=== PATIENT | female | born 1955 | race American Indian/Alaskan Native ===

== ENCOUNTER 2016-06-30 09:17 | Emergency (ER) | payer OTHER ==
[2016-06-30 09:17] VITALS: BMI 38.4
[2016-06-30 09:44] VITALS: RESP 18; TEMP 97.9; O2SAT 96
--- NOTE | 2016-06-30 10:32 | ED PDOC ---
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 Patient states that she is compliant with taking her Dilantin. 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 Denies tongue biting, dizziness, chest pain, shortness of breath, abdominal pain, N/V, or any other complaints at this time. D [facility] Past Medical History - Provider Review Nursing Documentation Reviewed: Yes - Infectious Disease Hx of Infectious Diseases: None - Tetanus Immunization Tetanus Immunization: Up to Date - Past Medical History Past Medical History: Non-Contributing - Cardiac Hx Cardiac Disorders: Yes Hx Congestive Heart Failure: Yes Hx Hypertension: Yes Hx Peripheral Edema: Yes - Pulmonary Hx Asthma: Yes Hx Bronchitis: Yes Hx Pulmonary Embolism: Yes - Neurological Hx Neurological Disorder: Yes Hx Migraine: Yes Hx Seizures: Yes - HEENT Hx HEENT Disorder: No - Renal Hx Renal Disorder: No - Hematological/Oncological Hx Blood Disorders: Yes Hx Anemia: Yes - Integumentary Hx Dermatological Disorder: No - Musculoskeletal/Rheumatological Hx Musculoskeletal Disorders: Yes Hx Arthritis: Yes - Gastrointestinal Hx Gastrointestinal Disorders: Yes Hx Crohn's Disease: Yes Hx Gall Bladder Disease: Yes Hx Gastritis: Yes Hx Gastrointestinal Ulcer: Yes - Genitourinary/Gynecological Hx Genitourinary Disorders: No Hx Sexually Transmitted Diseases: No - Psychiatric Hx Psychophysiologic Disorder: Yes Hx Anxiety: Yes Hx Depression: Yes Hx Substance Use: No - Past Surgical History Past Surgical History: Non-Contributing - Surgical History Hx Cholecystectomy: Yes - Anesthesia Hx Anesthesia: Yes Hx Anesthesia Reactions: No Hx Malignant Hyperthermia: No - Suicidal Assessment Feels Threatened In Home Enviroment: No Family/Social History - Physician Review Nursing Documentation Reviewed: Yes Family/Social History: Unknown Family HX Smoking Status: Former Smoker Hx Alcohol Use: No Hx Substance Use: No Substance used: PAIN MEDICATION Hx Substance Use Treatment: No Allergies/Home Meds Allergies/Adverse Reactions: Allergies benzethonium chloride Allergy (Intermediate, Verified 06/30/16 09:24) URTICARIA benzocaine Allergy (Unknown, Verified 06/30/16 09:24) ITCHING broccoli Allergy (Unknown, Verified 06/30/16 09:24) ITCHING ketorolac tromethamine [From Toradol] Allergy (Unknown, Verified 06/30/16 09:24) ANAPHYLAXIS lidocaine Allergy (Unknown, Verified 06/30/16 09:24) ITCHING nitroglycerin Allergy (Unknown, Verified 06/30/16 09:24) URTICARIA pineapple Allergy (Unknown, Verified 06/30/16 09:24) ITCHING trazodone Allergy (Unknown, Verified 06/30/16 09:24) "heart flutters", swelling haloperidol [From Haldol] Allergy (Verified 06/30/16 09:24) VOMITING haloperidol lactate [From Haldol] Allergy (Verified 06/30/16 09:24) VOMITING oxycodone Allergy (Verified 06/30/16 09:24) SHORTNESS OF BREATH Unknown reaction, patient refused to answer. ziprasidone HCl [From Geodon] Allergy (Verified 06/30/16 09:24) SHORTNESS OF BREATH palpitations ziprasidone mesylate [From Geodon] Allergy (Verified 06/30/16 09:24) SHORTNESS OF BREATH aspirin Adverse Reaction (Unknown, Verified 06/30/16 09:24) "heart flutters", swelling steroids Allergy (Unknown, Uncoded 06/30/16 09:24) "heart flutters", swelling Lanacane Allergy (Uncoded 06/30/16 09:24) SHORTNESS OF BREATH Unknown reaction, patient refused to answer. Steroids Allergy (Uncoded 06/30/16 09:24) SHORTNESS OF BREATH Unknown reaction, patient refused to answer. Home Medications: Home Meds Medication Instructions Recorded Confirmed Ferrous Sulfate [Feosol] 325 mg PO DAILY 08/22/15 06/30/16 Omeprazole [Prilosec] 40 mg PO DAILY 09/12/15 06/30/16 Albuterol HFA [Ventolin HFA 90 2 puff IH TID 03/30/16 06/30/16 mcg/actuation (8 g)] DiphenhydrAMINE [Benadryl] 25 mg PO PRN PRN 03/30/16 06/30/16 Enoxaparin [Lovenox] 120 mg SQ DAILY 03/30/16 06/30/16 LORazepam [Ativan] 2 mg PO BID 03/30/16 06/30/16 Review of Systems - Review of Systems Constitutional: Normal. absent: Fatigue, Weight Change, Fevers Respiratory: Normal. absent: SOB, Cough Cardiovascular: Normal. absent: Chest Pain, Palpitations Gastrointestinal: Normal. absent: Abdominal Pain, Stool Changes Musculoskeletal: Normal, Back Pain. absent: Arthralgias Skin: Normal. absent: Rash, Pruritis Neurological: Normal, Headache. absent: Dizziness, Focal Weakness Physical Exam - Physical Exam Narrative Physical Exam (Text): 06/30/16 10:33 GENERAL APPEARANCE: Patient is awake, alert, oriented x 3, in no acute distress. SKIN: Warm, dry; (-) cyanosis; (-) rash. HEAD: Normocephalic, atraumatic, (-) scalp swelling or tenderness. EYES: (-) conjunctival pallor, (-) scleral icterus. ENMT: (-) sinus tenderness; mucous membranes moist. NECK: (-) tenderness, (-) stiffness, (-) meningismus, (-) lymphadenopathy. CHEST AND RESPIRATORY: (-) rales, (-) rhonchi, (-) wheezes; breath sounds equal bilaterally. HEART AND CARDIOVASCULAR: (-) irregularity; (-) murmur, (-) gallop. ABDOMEN AND GI: Soft; (-) tenderness. BACK: (-) tenderness, (-) ecchymosis. EXTREMITIES: (-) deformity. NEURO AND PSYCH: Mental status as above. financial sales advisor: Pupils equal and reactive; EOMI ; (-) facial asymmetry; tongue and uvula midline. Strength and DTRs symmetric. Babinski normal bilaterally. Vital Signs Temp Pulse Resp BP Pulse Ox 06/30/16 11:07 68 18 135/71 96 06/30/16 09:41 97.9 F 78 18 138/77 96 Finger Stick Blood Glucose: 101 Medical Decision Making ED Course and Treatment: 06/30/16 10:34 60 yo F presents to the ER for seizure episode, is c/o mild headache is on lovenox for a chronic DVT to the L leg. Plan: -- Labs -- Dilantin levels -- EKG -- Tylenol -- Reassess and disposition -- CT head CBC/CMP/Coags not drawn as the patient is difficult to access an IV, will attempt to draw dilatin level for now. EKG: NSR at 79 bpm, (-) acute ST changes, as read by PA. CT head: FINDINGS: HEMORRHAGE: No intracranial hemorrhage. BRAIN: No mass effect or edema. The padilla-white matter differentiation appears intact. Please note that MRI with diffusion imaging is more sensitive in the detection of acute ischemic event. VENTRICLES: No hydrocephalus. CALVARIUM: Unremarkable. PARANASAL SINUSES: Unremarkable as visualized. No significant inflammatory changes. MASTOID AIR CELLS: Unremarkable as visualized. No inflammatory changes. OTHER FINDINGS: None. IMPRESSION: No acute intracranial pathology identified. 06/30/16 12:04 On reevaluation, patient remains awake, alert, oriented 3, in no acute distress. Patient is ambulating in the emergency room with a normal and steady gait. Patient has no additional complaints at this time, reports improvement of her headache. Repeat neuro exam shows no acute focal findings. Dilantin level is [address] head shows no acute intracranial findings. Based on history, exam and diagnostic results plan will be for outpatient follow -up with PMD. Patient instructed to continue taking her Dilantin as prescribed by her neurologist, encouraged to maintain compliance. Patient states she fully agrees with and understands discharge instructions. States that she agrees with the plan and disposition. Verbalized and repeated discharge instructions and plan. I have given the patient opportunity to ask any additional questions. Follow up with primary care physician and neurologist in 1-2 days without fail. Return to the emergency room at any time for any new or worsening symptoms. - Lab Interpretations Lab Results: Lab Results 06/30/16 11:30: Phenytoin 20 - RAD Interpretation Radiology Orders: 06/30/16 09:58 HEAD W/O CONTRAST [CT] Stat - Medication Orders Current Medication Orders: Discontinued Medications Acetaminophen (Tylenol 325mg Tab) 975 mg PO STAT STA Stop: 06/30/16 10:00 Last Admin: 06/30/16 10:09 Dose: 975 MG MAR Pain/Vitals Document 06/30/16 10:09 MARANDA (Rec: 06/30/16 10:09 MARANDA [id number]) Pain Reassessment Is This A Pain ReAssessment? Yes Presence of Pain Presence of Pain Yes Pain Scale Used Pain Scale Used Numeric Location Pain Location Body Inclusion Teacher Intensity 10 Scale Used Numeric - PA / QUALITY ASSURANCE COORDINATOR / Resident Statement MD/DO has reviewed & agrees with the documentation as recorded. Disposition/Present on Arrival - Present on Arrival Any Indicators Present on Arrival: No History of DVT/PE: No History of Uncontrolled Diabetes: No Urinary Catheter: No History of Decub. Ulcer: No History Surgical Site Infection Following: None - Disposition Have Diagnosis and Disposition been Completed?: Yes Diagnosis: Seizure, Headache Disposition: HOME/ ROUTINE Disposition Time: 12:08 Patient Plan: Discharge Patient Problems: Current Active Problems Problem Status Diagnosed DVT (deep venous thrombosis) Acute EKG abnormality Acute History of deep vein thrombosis Acute History of pulmonary embolus (PE) Acute Prophylactic measure Acute Condition: GOOD Discharge Instructions (ExitCare): Recurrent Seizures in Adults (ED) Print Language: POLISH Additional Instructions: Thank you for letting us take care of you today. You were treated for seizure, headache. The emergency medical care you received today was directed at your acute symptoms. Continue taking your Dilantin. Return to the Emergency Department if your symptoms worsen, do not improve, or if you have any other problems. Please contact your doctor and neurologist in 2 days for re-evaluation and follow up. Bring any paperwork you were given at discharge with you along with any medications you are taking to your follow up visit. Our treatment cannot replace ongoing medical care by a primary care provider (PCP) outside of the emergency department. Thank you for allowing the [facility] team to be part of your care today.
--- NOTE | 2016-06-30 10:47 | CT ---
PROCEDURE: CT HEAD WITHOUT CONTRAST. HISTORY: s/p seizure, headache, on lovenox COMPARISON: Noncontrast head CT performed 10/31/15 TECHNIQUE: Axial computed tomography images were obtained through the head/brain without intravenous contrast. Radiation dose: Total exam DLP = 725.84 mGy-cm. FINDINGS: HEMORRHAGE: No intracranial hemorrhage. BRAIN: No mass effect or edema. The padilla-white matter differentiation appears intact. Please note that MRI with diffusion imaging is more sensitive in the detection of acute ischemic event. VENTRICLES: No hydrocephalus. CALVARIUM: Unremarkable. PARANASAL SINUSES: Unremarkable as visualized. No significant inflammatory changes. MASTOID AIR CELLS: Unremarkable as visualized. No inflammatory changes. OTHER FINDINGS: None. IMPRESSION: No acute intracranial pathology identified.
[2016-06-30 11:08] VITALS: BP 135/71; PULSE 68
--- NOTE | 2016-07-01 09:41 | CARD ---
APPROVED REPORT EKG Measurement Heart [id number] <Conclusion> Normal sinus rhythm NSSTW changes No change
== END 2016-06-30 12:15 | disposition home or self-care (01) ==
LOC: ED 09:17
DX: R56.9 Unspecified convulsions (principal); R51 Headache

== ENCOUNTER 2016-07-25 23:48 | Emergency (ER) | payer OTHER ==
[2016-07-25 23:55] VITALS: BMI 40.2
--- NOTE | 2016-07-26 00:30 | ED PDOC ---
Arrival/HPI - General Chief Complaint: Anxiety Time Seen by Provider: 07/26/16 00:17 Historian: Patient - History of Present Illness Narrative History of Present Illness (Text): 07/26/16 00:05 This 60 yo female who is well known in this ED came c/o chronic chest pain, and anxiety x 1 day. Patient stated she feels anxious and she stated she takes Ativan for this. Patient denies sob, cough, fever, recent travel, erythema, abscess, pleuritic chest pain, trauma, leg swelling, sick contact, or abnormal gait. Time/Duration: Prior to Arrival Context: Home Past Medical History - Provider Review Nursing Documentation Reviewed: Yes - Infectious Disease Hx of Infectious Diseases: None - Tetanus Immunization Tetanus Immunization: Up to Date - Past Medical History Past Medical History: Non-Contributing - Cardiac Hx Cardiac Disorders: Yes Hx Congestive Heart Failure: Yes Hx Hypertension: Yes Hx Peripheral Edema: Yes - Pulmonary Hx Asthma: Yes Hx Bronchitis: Yes Hx Pulmonary Embolism: Yes - Neurological Hx Neurological Disorder: Yes Hx Migraine: Yes Hx Seizures: Yes - HEENT Hx HEENT Disorder: No - Renal Hx Renal Disorder: No - Hematological/Oncological Hx Blood Disorders: Yes Hx Anemia: Yes - Integumentary Hx Dermatological Disorder: No - Musculoskeletal/Rheumatological Hx Musculoskeletal Disorders: Yes Hx Arthritis: Yes - Gastrointestinal Hx Gastrointestinal Disorders: Yes Hx Crohn's Disease: Yes Hx Gall Bladder Disease: Yes Hx Gastritis: Yes Hx Gastrointestinal Ulcer: Yes - Genitourinary/Gynecological Hx Genitourinary Disorders: No Hx Sexually Transmitted Diseases: No - Psychiatric Hx Psychophysiologic Disorder: Yes Hx Anxiety: Yes Hx Depression: Yes Hx Substance Use: No - Past Surgical History Past Surgical History: Non-Contributing - Surgical History Hx Cholecystectomy: Yes - Anesthesia Hx Anesthesia: Yes Hx Anesthesia Reactions: No Hx Malignant Hyperthermia: No - Suicidal Assessment Feels Threatened In Home Enviroment: No Family/Social History - Physician Review Nursing Documentation Reviewed: Yes Family/Social History: No Known Family HX Smoking Status: Former Smoker Hx Alcohol Use: No Hx Substance Use: No Substance used: PAIN MEDICATION Hx Substance Use Treatment: No Allergies/Home Meds Allergies/Adverse Reactions: Allergies benzethonium chloride Allergy (Intermediate, Verified 06/30/16 09:24) URTICARIA benzocaine Allergy (Unknown, Verified 06/30/16 09:24) ITCHING broccoli Allergy (Unknown, Verified 06/30/16 09:24) ITCHING ketorolac tromethamine [From Toradol] Allergy (Unknown, Verified 06/30/16 09:24) ANAPHYLAXIS lidocaine Allergy (Unknown, Verified 06/30/16 09:24) ITCHING nitroglycerin Allergy (Unknown, Verified 06/30/16 09:24) URTICARIA pineapple Allergy (Unknown, Verified 06/30/16 09:24) ITCHING trazodone Allergy (Unknown, Verified 06/30/16 09:24) "heart flutters", swelling haloperidol [From Haldol] Allergy (Verified 06/30/16 09:24) VOMITING haloperidol lactate [From Haldol] Allergy (Verified 06/30/16 09:24) VOMITING oxycodone Allergy (Verified 06/30/16 09:24) SHORTNESS OF BREATH Unknown reaction, patient refused to answer. ziprasidone HCl [From Geodon] Allergy (Verified 06/30/16 09:24) SHORTNESS OF BREATH palpitations ziprasidone mesylate [From Geodon] Allergy (Verified 06/30/16 09:24) SHORTNESS OF BREATH aspirin Adverse Reaction (Unknown, Verified 06/30/16 09:24) "heart flutters", swelling steroids Allergy (Unknown, Uncoded 06/30/16 09:24) "heart flutters", swelling Lanacane Allergy (Uncoded 06/30/16 09:24) SHORTNESS OF BREATH Unknown reaction, patient refused to answer. Steroids Allergy (Uncoded 06/30/16 09:24) SHORTNESS OF BREATH Unknown reaction, patient refused to answer. Home Medications: Home Meds Medication Instructions Recorded Confirmed Ferrous Sulfate [Feosol] 325 mg PO DAILY 08/22/15 06/30/16 Omeprazole [Prilosec] 40 mg PO DAILY 09/12/15 06/30/16 Albuterol HFA [Ventolin HFA 90 2 puff IH TID 03/30/16 06/30/16 mcg/actuation (8 g)] DiphenhydrAMINE [Benadryl] 25 mg PO PRN PRN 03/30/16 06/30/16 Enoxaparin [Lovenox] 120 mg SQ DAILY 03/30/16 06/30/16 LORazepam [Ativan] 2 mg PO BID 03/30/16 06/30/16 Review of Systems - Review of Systems Constitutional: Normal. absent: Fatigue, Weight Change, Fevers Eyes: Normal ENT: Normal Respiratory: Normal. absent: SOB, Cough Cardiovascular: Chest Pain. absent: Palpitations, Edema, Calf Pain, PATTERSON, Orthopnea, Syncope Gastrointestinal: Normal. absent: Abdominal Pain, Nausea, Vomiting Genitourinary Female: Normal. absent: Dysuria, Frequency, Hematuria Musculoskeletal: Normal. absent: Arthralgias, Back Pain Skin: Normal. absent: Rash, Pruritis, Skin Lesions, Laceration Neurological: Normal. absent: Headache, Dizziness, Focal Weakness Endocrine: Normal Hemo/Lymphatic: Normal Psychiatric: Anxiety, Other (Denies HI). absent: Depression, Suicidal Ideation Physical Exam Vital Signs Temp Pulse Resp BP Pulse Ox 07/26/16 01:26 98 F 86 20 152/88 H 98 07/26/16 00:00 97.7 F 102 H 18 162/94 H 95 Temperature: Afebrile Blood Pressure: Normal Pulse: Regular Respiratory Rate: Normal Appearance: Positive for: Well-Appearing, Non-Toxic, Comfortable Pain Distress: None Mental Status: Positive for: Alert and Oriented X 3 - Systems Exam Head: Present: Atraumatic, Normocephalic Pupils: Present: PERRL Extroacular Muscles: Present: EOMI Conjunctiva: Present: Normal Mouth: Present: Moist Mucous Membranes Pharnyx: Present: Normal. No: ERYTHEMA, EXUDATE, TONSILS ENLARGED Nose (External): Present: Atraumatic Nose (Internal): Present: Normal Inspection Neck: Present: Normal Range of Motion, Trachea Midline, Other ((+) mild irritation right sided neck. no cellulitis or abscess. No tenderness on palpation. Blanches on palpation). No: Meningeal Signs, MIDLINE TENDERNESS, Paraspinal Tenderness, Lymphadenopathy Respiratory/Chest: Present: Clear to Auscultation, Good Air Exchange. No: Respiratory Distress, Accessory Muscle Use, Wheezes, Decreased Breath Sounds, Rales, Retracting, Rhonchi, Tachypneic Cardiovascular: Present: Regular Rate and Rhythm, Normal S1, S2. No: Murmurs Abdomen: Present: Normal Bowel Sounds. No: Tenderness, Distention, Peritoneal Signs Back: Present: Normal Inspection. No: CVA Tenderness Upper Extremity: Present: Normal Inspection, Normal ROM, NORMAL PULSES, Neurovascularly Intact, Capillary Refill < 2s. No: Cyanosis, Edema Lower Extremity: Present: Normal Inspection, Normal ROM, Neurovascularly Intact , Capillary Refill < 2 s. No: Edema Neurological: Present: GCS=15, CN II-XII Intact, Speech Normal, Motor Func Grossly Intact, Normal Sensory Function, Normal Cerebellar Funct, Gait Normal, Memory Normal Skin: Present: Warm, Dry, Normal Color. No: Rashes Psychiatric: Present: Alert, Oriented x 3, Normal Insight, Normal Concentration , Anxious. No: Depressed Mood, Suicidal Ideation, Homicidal Ideation, Delusional, Hallucinations, Intoxicated, Lethargic Medical Decision Making ED Course and Treatment: 07/26/16 01:32 Re-evaluation. Patient feels better. Discussed results and plan with patient who expresses understanding. All questions answered and there is agreement with the plan to discharge home with instructions. Patient stable for discharge. Return if symptoms persist or worsen. Patient stated anxiety has improved. Denies CP at this time. EKG was NSR. Chest x-rays shows no consolidation or pleural effusion. Patient feels better and she wishes to be discharge home. Z-pack was prescribed. First dose give here. Re-evaluation Time: 01:32 Reassessment Condition: Re-examined, Improved - RAD Interpretation Narrative RAD Interpretations (Text): 07/26/16 01:57 CXR: No infiltrates Radiology Orders: 07/26/16 00:54 CHEST PORTABLE [RAD] Stat - EKG Interpretation Interpreted by ED Physician: Yes (NSR @ 89bpm. No ST changes) Type: 12 lead EKG Comparison: No previous EKG avail. - Medication Orders Current Medication Orders: Discontinued Medications Azithromycin (Zithromax) 500 mg PO STAT STA PRN Reason: Protocol Stop: 07/26/16 01:31 Lorazepam (Ativan) 1 mg PO ONCE ONE PRN Reason: Protocol Stop: 07/26/16 01:32 Disposition/Present on Arrival - Present on Arrival Any Indicators Present on Arrival: No History of DVT/PE: No History of Uncontrolled Diabetes: No Urinary Catheter: No History of Decub. Ulcer: No History Surgical Site Infection Following: None - Disposition Have Diagnosis and Disposition been Completed?: Yes Diagnosis: Anxiety, Chronic chest pain Disposition: HOME/ ROUTINE Disposition Time: 01:33 Patient Plan: Discharge Patient Problems: Current Active Problems Problem Status Diagnosed Anxiety Acute Chronic chest pain Acute DVT (deep venous thrombosis) Acute EKG abnormality Acute History of deep vein thrombosis Acute History of pulmonary embolus (PE) Acute Prophylactic measure Acute Condition: GOOD Discharge Instructions (ExitCare): Chest Pain (ED) Additional Instructions: Call private doctor for follow up visit in 1-2 days. take home medication as instructed. Return to emergency as needed or if symptoms worsen. Prescriptions: Azithromycin [Z-Deny] 250 mg PO DAILY #4 tab Referrals: [facility] [Outside] - Follow up with primary
[2016-07-26 01:27] VITALS: BP 152/88; PULSE 86; RESP 20; TEMP 98; O2SAT 98
--- NOTE | 2016-07-26 09:07 | RAD ---
HISTORY: cough COMPARISON: 05/05/2016 FINDINGS: LUNGS: No active pulmonary disease. PLEURA: No significant pleural effusion identified, no pneumothorax apparent. CARDIOVASCULAR: Normal. OSSEOUS STRUCTURES: No significant abnormalities. VISUALIZED UPPER ABDOMEN: Normal. OTHER FINDINGS: None. IMPRESSION: No active disease.
--- NOTE | 2016-07-26 11:31 | CARD ---
APPROVED REPORT EKG Measurement Heart [id number] [id number] <Conclusion> Normal sinus rhythm NSSTW changes No change
== END 2016-07-26 02:06 | disposition home or self-care (01) ==
LOC: ED 23:48
DX: R07.9 Chest pain, unspecified (principal); F41.9 Anxiety disorder, unspecified; Z87.891 Personal history of nicotine dependence; I10 Essential (primary) hypertension

== ENCOUNTER 2016-09-07 17:16 | Emergency (ER) | payer MEDICAID, OTHER ==
[2016-09-07 17:23] VITALS: BMI 34.4
[2016-09-07 17:25] VITALS: BP 132/93; RESP 18; TEMP 98.2; O2SAT 98
--- NOTE | 2016-09-07 18:09 | ED PDOC ---
Arrival/HPI - General Chief Complaint: Chest Pain Time Seen by Provider: 09/07/16 17:52 Historian: Patient - History of Present Illness Narrative History of Present Illness (Text): 09/07/16 18:00 Justina Abreu is a 60 year old female who is well known in the ED and with an extensive past medical history that includes COPD, PE, Asthma, Anxiety, Asthma, Anemia, Seizures, and Crohn's Disease, who presents to the emergency department for anxiety related symptoms. Patient ran out of Ativan medication and will be refilling it soon. Patient also reports mild discomfort in her chest not described as pain & she attributes it to her anxiety. Patient denies any fever, chills, shortness of breath, nausea, vomiting, diarrhea, urinary symptoms, back pain, neck pain, headache, dizziness, recent immobilizations, recent travels, prolonged sitting, recent surgeries, or any other complaints. PMD: None reported. Time/Duration: 24 hours Symptom Onset: Gradual Symptom Course: Unchanged Activities at Onset: Light Context: Home Past Medical History - Provider Review Nursing Documentation Reviewed: Yes - Infectious Disease Hx of Infectious Diseases: None - Tetanus Immunization Tetanus Immunization: Up to Date - Past Medical History Past Medical History: Non-Contributing - Cardiac Hx Congestive Heart Failure: Yes Hx Hypertension: Yes Hx Peripheral Edema: Yes - Pulmonary Hx Asthma: Yes Hx Bronchitis: Yes Hx Pulmonary Embolism: Yes - Neurological Hx Migraine: Yes Hx Seizures: Yes - HEENT Hx HEENT Disorder: No - Renal Hx Renal Disorder: No - Hematological/Oncological Hx Anemia: Yes - Integumentary Hx Dermatological Disorder: No - Musculoskeletal/Rheumatological Hx Arthritis: Yes - Gastrointestinal Hx Crohn's Disease: Yes Hx Gall Bladder Disease: Yes Hx Gastritis: Yes Hx Gastrointestinal Ulcer: Yes - Genitourinary/Gynecological Hx Sexually Transmitted Diseases: No - Psychiatric Hx Anxiety: Yes Hx Depression: Yes Hx Substance Use: No - Past Surgical History Past Surgical History: Non-Contributing - Surgical History Hx Cholecystectomy: Yes - Anesthesia Hx Anesthesia: Yes Hx Anesthesia Reactions: No Hx Malignant Hyperthermia: No - Suicidal Assessment Feels Threatened In Home Enviroment: No Family/Social History - Physician Review Nursing Documentation Reviewed: Yes Family/Social History: No Known Family HX Smoking Status: Former Smoker Hx Alcohol Use: No Hx Substance Use: No Substance used: PAIN MEDICATION Hx Substance Use Treatment: No Allergies/Home Meds Allergies/Adverse Reactions: Allergies benzethonium chloride Allergy (Intermediate, Verified 09/07/16 17:19) URTICARIA benzocaine Allergy (Unknown, Verified 09/07/16 17:19) ITCHING broccoli Allergy (Unknown, Verified 09/07/16 17:19) ITCHING ketorolac tromethamine [From Toradol] Allergy (Unknown, Verified 09/07/16 17:19) ANAPHYLAXIS lidocaine Allergy (Unknown, Verified 09/07/16 17:19) ITCHING nitroglycerin Allergy (Unknown, Verified 09/07/16 17:19) URTICARIA pineapple Allergy (Unknown, Verified 09/07/16 17:19) ITCHING trazodone Allergy (Unknown, Verified 09/07/16 17:19) "heart flutters", swelling haloperidol [From Haldol] Allergy (Verified 09/07/16 17:19) VOMITING haloperidol lactate [From Haldol] Allergy (Verified 09/07/16 17:19) VOMITING oxycodone Allergy (Verified 09/07/16 17:19) SHORTNESS OF BREATH Unknown reaction, patient refused to answer. ziprasidone HCl [From Geodon] Allergy (Verified 09/07/16 17:19) SHORTNESS OF BREATH palpitations ziprasidone mesylate [From Geodon] Allergy (Verified 09/07/16 17:19) SHORTNESS OF BREATH aspirin Adverse Reaction (Unknown, Verified 09/07/16 17:19) "heart flutters", swelling steroids Allergy (Unknown, Uncoded 09/07/16 17:19) "heart flutters", swelling Lanacane Allergy (Uncoded 09/07/16 17:19) SHORTNESS OF BREATH Unknown reaction, patient refused to answer. Steroids Allergy (Uncoded 09/07/16 17:19) SHORTNESS OF BREATH Unknown reaction, patient refused to answer. Home Medications: Home Meds Medication Instructions Recorded Confirmed Ferrous Sulfate [Feosol] 325 mg PO DAILY 08/22/15 08/03/16 Omeprazole [Prilosec] 40 mg PO DAILY 09/12/15 08/03/16 Albuterol HFA [Ventolin HFA 90 2 puff IH TID 03/30/16 08/03/16 mcg/actuation (8 g)] DiphenhydrAMINE [Benadryl] 25 mg PO PRN PRN 03/30/16 08/03/16 LORazepam [Ativan] 2 mg PO BID 03/30/16 08/03/16 Review of Systems - Physician Review All systems were reviewed & negative as marked: Yes - Review of Systems Constitutional: Normal. absent: Fevers Eyes: Normal ENT: Normal Respiratory: Normal. absent: SOB, Cough Cardiovascular: Chest Pain (Mild Chest Discomfort) Gastrointestinal: Normal. absent: Abdominal Pain, Diarrhea, Nausea, Vomiting Genitourinary Female: Normal. absent: Dysuria, Frequency, Hematuria, Urine Output Changes Musculoskeletal: Normal. absent: Back Pain, Neck Pain Skin: Normal Neurological: Normal. absent: Headache, Dizziness Endocrine: Normal Hemo/Lymphatic: Normal Psychiatric: Anxiety Physical Exam Vital Signs Reviewed: Yes Vital Signs Temp Pulse Pulse Resp BP BP Pulse Ox 09/07/16 17:24 98.2 F 74 18 132/93 H 98 09/07/16 17:22 70 132/93 H Temperature: Afebrile Blood Pressure: Hypertensive Pulse: Regular Respiratory Rate: Normal Appearance: Positive for: Well-Appearing, Non-Toxic, Comfortable Pain Distress: None Mental Status: Positive for: Alert and Oriented X 3 - Systems Exam Head: Present: Atraumatic, Normocephalic Pupils: Present: PERRL Extroacular Muscles: Present: EOMI Conjunctiva: Present: Normal Mouth: Present: Moist Mucous Membranes Neck: Present: Normal Range of Motion Respiratory/Chest: Present: Clear to Auscultation, Good Air Exchange. No: Respiratory Distress, Accessory Muscle Use Cardiovascular: Present: Regular Rate and Rhythm, Normal S1, S2. No: Murmurs Abdomen: Present: Normal Bowel Sounds. No: Tenderness, Distention, Peritoneal Signs Back: Present: Normal Inspection Upper Extremity: Present: Normal Inspection. No: Cyanosis, Edema Lower Extremity: Present: Normal Inspection. No: Edema Neurological: Present: GCS=15, CN II-XII Intact, Speech Normal Skin: Present: Warm, Dry, Normal Color. No: Rashes Psychiatric: Present: Alert, Oriented x 3, Normal Insight, Normal Concentration Medical Decision Making ED Course and Treatment: 09/07/16 18:00 Impression: 60 year old female who presents for anxiety & mild chest discomfort. Differential Diagnosis include but are not limited to: Anxiety Plan: -- Ativan -- Reassess and disposition Prior Visits: Notes and results from previous visits were reviewed. Patient was last seen in the emergency department on 08/16/2016 for chest pain. Progress Notes: - Medication Orders Current Medication Orders: Discontinued Medications Lorazepam (Ativan) 2 mg PO ONCE ONE PRN Reason: Protocol Stop: 09/07/16 18:06 Last Admin: 09/07/16 18:17 Dose: 2 mg - Scribe Statement The provider has reviewed the documentation as recorded by the Barber Salazar Provider Attestation: All medical record entries made by the Barber were at my direction and personally dictated by me. I have reviewed the chart and agree that the record accurately reflects my personal performance of the history, physical exam, medical decision making, and the department course for this patient. I have also personally directed, reviewed, and agree with the discharge instructions and disposition. Disposition/Present on Arrival - Present on Arrival Any Indicators Present on Arrival: No History of DVT/PE: No History of Uncontrolled Diabetes: No Urinary Catheter: No History of Decub. Ulcer: No History Surgical Site Infection Following: None - Disposition Have Diagnosis and Disposition been Completed?: Yes Diagnosis: Anxiety Disposition: HOME/ ROUTINE Disposition Time: 18:39 Patient Plan: Discharge Condition: IMPROVED Discharge Instructions (ExitCare): Chest Pain (ED), Anxiety (ED) Additional Instructions: Ms Abreu, thank you for letting us take care of you today. Your provider was Dr. Anglin. You were treated for Anxiety. The emergency medical care you received today was directed at your acute symptoms. If you were prescribed any medication, please fill it and take as directed. It may take several days for your symptoms to resolve. Return to the Emergency Department if your symptoms worsen, do not improve, or if you have any other problems. Please contact your doctor or call one of the physicians/clinics you have been referred to that are listed on the Patient Visit Information form that is included in your discharge packet. Bring any paperwork you were given at discharge with you along with any medications you are taking to your follow up visit. Our treatment cannot replace ongoing medical care by a primary care provider (PCP) outside of the emergency department. Thank you for allowing the [facility] team to be part of your care today. If you had an X-Ray or CT scan: A Radiologist will review the ED reading if any change in treatment is needed we will contact you. If you had a blood, urine, or wound culture: It will take several days for the results, if any change in treatment is needed we will contact you. If you had an STI test: It will take 48 hours for the results. Please call after 1 week if you have not heard back. Referrals: [facility], [Non-Staff] - Follow up with primary Forms: WORK NOTE
[2016-09-07 18:37] VITALS: PULSE 70
--- NOTE | 2016-09-08 12:09 | CARD ---
APPROVED REPORT EKG Measurement Heart [id number] <Conclusion> Normal sinus rhythm Possible Anterolateral infarct, age undetermined T wave abnormality, consider inferior ischemia Abnormal ECG
== END 2016-09-07 18:56 | disposition home or self-care (01) ==
LOC: ED 17:16
DX: F41.9 Anxiety disorder, unspecified (principal); I10 Essential (primary) hypertension; Z87.891 Personal history of nicotine dependence

== ENCOUNTER 2016-09-09 21:14 | Emergency (ER) | payer OTHER ==
[2016-09-09 21:27] VITALS: BMI 37.5
[2016-09-09 21:48] VITALS: BP 138/75; PULSE 83; RESP 17; TEMP 98.5; O2SAT 100
--- NOTE | 2016-09-09 22:23 | ED PDOC ---
Arrival/HPI - General Chief Complaint: Chest Pain Time Seen by Provider: 09/09/16 21:18 Historian: Patient - History of Present Illness Narrative History of Present Illness (Text): 09/09/16 22:19 Justina Abreu is a 60 year old female whose past medical history includes COPD , asthma, anemia, anxiety and seizures, presents to the emergency department complaining of anxiety. States she ran out of Ativan and has an appointment with PMD tomorrow for refill prescription. Patient has numerous Emergency department visits for these symptoms. Denies any fever, chills, headache, dizziness, difficulty breathing, nausea, vomiting, urinary symptoms, or any other complaints at this time. Symptom Onset: Gradual Severity Level: Mild Activities at Onset: Light Context: Home Past Medical History - Provider Review Nursing Documentation Reviewed: Yes - Infectious Disease Hx of Infectious Diseases: None - Tetanus Immunization Tetanus Immunization: Up to Date - Past Medical History Past Medical History: Non-Contributing - Cardiac Hx Congestive Heart Failure: Yes Hx Hypertension: Yes Hx Peripheral Edema: Yes - Pulmonary Hx Asthma: Yes Hx Bronchitis: Yes Hx Pulmonary Embolism: Yes - Neurological Hx Migraine: Yes Hx Seizures: Yes - HEENT Hx HEENT Disorder: No - Renal Hx Renal Disorder: No - Hematological/Oncological Hx Anemia: Yes - Integumentary Hx Dermatological Disorder: No - Musculoskeletal/Rheumatological Hx Arthritis: Yes - Gastrointestinal Hx Crohn's Disease: Yes Hx Gall Bladder Disease: Yes Hx Gastritis: Yes Hx Gastrointestinal Ulcer: Yes - Genitourinary/Gynecological Hx Sexually Transmitted Diseases: No - Psychiatric Hx Anxiety: Yes Hx Depression: Yes Hx Substance Use: No - Past Surgical History Past Surgical History: Non-Contributing - Surgical History Hx Cholecystectomy: Yes - Anesthesia Hx Anesthesia: Yes Hx Anesthesia Reactions: No Hx Malignant Hyperthermia: No - Suicidal Assessment Feels Threatened In Home Enviroment: No Family/Social History - Physician Review Nursing Documentation Reviewed: Yes Family/Social History: No Known Family HX Smoking Status: Former Smoker Hx Alcohol Use: No Hx Substance Use: No Substance used: PAIN MEDICATION Hx Substance Use Treatment: No Allergies/Home Meds Allergies/Adverse Reactions: Allergies benzethonium chloride Allergy (Intermediate, Verified 09/07/16 17:19) URTICARIA benzocaine Allergy (Unknown, Verified 09/07/16 17:19) ITCHING broccoli Allergy (Unknown, Verified 09/07/16 17:19) ITCHING ketorolac tromethamine [From Toradol] Allergy (Unknown, Verified 09/07/16 17:19) ANAPHYLAXIS lidocaine Allergy (Unknown, Verified 09/07/16 17:19) ITCHING nitroglycerin Allergy (Unknown, Verified 09/07/16 17:19) URTICARIA pineapple Allergy (Unknown, Verified 09/07/16 17:19) ITCHING trazodone Allergy (Unknown, Verified 09/07/16 17:19) "heart flutters", swelling haloperidol [From Haldol] Allergy (Verified 09/07/16 17:19) VOMITING haloperidol lactate [From Haldol] Allergy (Verified 09/07/16 17:19) VOMITING oxycodone Allergy (Verified 09/07/16 17:19) SHORTNESS OF BREATH Unknown reaction, patient refused to answer. ziprasidone HCl [From Geodon] Allergy (Verified 09/07/16 17:19) SHORTNESS OF BREATH palpitations ziprasidone mesylate [From Geodon] Allergy (Verified 09/07/16 17:19) SHORTNESS OF BREATH aspirin Adverse Reaction (Unknown, Verified 09/07/16 17:19) "heart flutters", swelling steroids Allergy (Unknown, Uncoded 09/07/16 17:19) "heart flutters", swelling Lanacane Allergy (Uncoded 09/07/16 17:19) SHORTNESS OF BREATH Unknown reaction, patient refused to answer. Steroids Allergy (Uncoded 09/07/16 17:19) SHORTNESS OF BREATH Unknown reaction, patient refused to answer. Home Medications: Home Meds Medication Instructions Recorded Confirmed Ferrous Sulfate [Feosol] 325 mg PO DAILY 08/22/15 08/03/16 Omeprazole [Prilosec] 40 mg PO DAILY 09/12/15 08/03/16 Albuterol HFA [Ventolin HFA 90 2 puff IH TID 03/30/16 08/03/16 mcg/actuation (8 g)] DiphenhydrAMINE [Benadryl] 25 mg PO PRN PRN 03/30/16 08/03/16 LORazepam [Ativan] 2 mg PO BID 03/30/16 08/03/16 Review of Systems - Physician Review All systems were reviewed & negative as marked: Yes - Review of Systems Constitutional: Normal. absent: Fatigue, Fevers Eyes: Normal. absent: Vision Changes Respiratory: Normal. absent: SOB, Cough, Sputum Cardiovascular: absent: Palpitations Gastrointestinal: Normal. absent: Abdominal Pain, Stool Changes Genitourinary Female: Normal Skin: Normal Psychiatric: Anxiety. absent: Depression, Suicidal Ideation Physical Exam Vital Signs Reviewed: Yes Vital Signs Temp Pulse Resp BP Pulse Ox 09/09/16 21:15 98.5 F 83 17 138/75 100 Temperature: Afebrile Blood Pressure: Normal Pulse: Regular Respiratory Rate: Normal Appearance: Positive for: Well-Appearing, Non-Toxic, Comfortable Pain Distress: None Mental Status: Positive for: Alert and Oriented X 3 - Systems Exam Head: Present: Atraumatic, Normocephalic Pupils: Present: PERRL Extroacular Muscles: Present: EOMI Conjunctiva: Present: Normal Respiratory/Chest: Present: Clear to Auscultation, Good Air Exchange. No: Respiratory Distress, Accessory Muscle Use Cardiovascular: Present: Regular Rate and Rhythm, Normal S1, S2. No: Murmurs Abdomen: Present: Normal Bowel Sounds. No: Tenderness, Distention, Peritoneal Signs Upper Extremity: Present: Normal Inspection. No: Cyanosis, Edema Lower Extremity: Present: Normal Inspection. No: Edema Neurological: Present: GCS=15, CN II-XII Intact, Speech Normal, Motor Func Grossly Intact, Normal Sensory Function Skin: Present: Warm, Dry, Normal Color. No: Rashes Psychiatric: Present: Alert, Oriented x 3, Normal Insight, Normal Concentration Medical Decision Making ED Course and Treatment: 09/09/16 22:24 Impression: A 60 year old female who presents to the emergency department complaining of anxiety. Plan: -- EKG -- Ativan -- Reassess and disposition Progress Notes: 09/09/16 22:26 EKG reviewed by me: NSR @ 82 bpm. Possible left atrial enlargement. On re-evaluation, patient feels better and is in no acute distress. I have discussed the results and plan with the patient, who expresses understanding. Patient in agreement with plan to be discharged home. Patient is stable for discharge. Patient was instructed to follow up with physician or return if symptoms worsen or new concerning symptoms arise. - Medication Orders Current Medication Orders: Discontinued Medications Lorazepam (Ativan) 2 mg PO ONCE ONE PRN Reason: Protocol Stop: 09/09/16 22:14 Last Admin: 09/09/16 22:33 Dose: 2 mg - Scribe Statement The provider has reviewed the documentation as recorded by the Barber Peña Provider Attestation: Provider Barber Attestation: All medical record entries made by the Barber were at my direction and personally dictated by me. I have reviewed the chart and agree that the record accurately reflects my personal performance of the history, physical exam, medical decision making, and the department course for this patient. I have also personally directed, reviewed, and agree with the discharge instructions and disposition. Disposition/Present on Arrival - Present on Arrival Any Indicators Present on Arrival: No History of DVT/PE: No History of Uncontrolled Diabetes: No Urinary Catheter: No History of Decub. Ulcer: No History Surgical Site Infection Following: None - Disposition Have Diagnosis and Disposition been Completed?: Yes Diagnosis: Anxiety Disposition: HOME/ ROUTINE Disposition Time: 22:40 Condition: GOOD Discharge Instructions (ExitCare): Anxiety (ED) Additional Instructions: follow up with pmd in am Referrals: Kristi Ríos MD [Primary Care Provider] - Follow up with primary
--- NOTE | 2016-09-11 01:44 | CARD ---
APPROVED REPORT EKG Measurement Heart [id number] <Conclusion> Normal sinus rhythm Possible Left atrial enlargement Borderline ECG
== END 2016-09-09 22:48 | disposition home or self-care (01) ==
LOC: ED 21:14
DX: F41.9 Anxiety disorder, unspecified (principal)

== ENCOUNTER 2016-09-11 00:28 | Emergency (ER) | payer MEDICAID, OTHER ==
[2016-09-11 00:32] VITALS: BMI 33.9
[2016-09-11 00:44] VITALS: BP 150/83; PULSE 80; RESP 17; TEMP 98.2; O2SAT 98
--- NOTE | 2016-09-11 01:40 | ED PDOC ---
Arrival/HPI - General Chief Complaint: Anxiety Time Seen by Provider: 09/11/16 00:33 Historian: Patient - History of Present Illness Narrative History of Present Illness (Text): 09/11/16 01:38 Justina Abreu is a 60 year old female whose past medical history includes COPD , asthma, anemia, anxiety and seizures, presents to the emergency department complaining of anxiety. Patient states she ran out of her Ativan prescription and reports she does not have an appointment with PMD until 09/13/2016 to refill her prescription. Patient requesting 1 dose of Ativan in Emergency department until she can follow-up with her doctor. Patient is well-known to ER staff and has been seen on multiple occasions for similar complaint. Patient denies any fever, chills, chest pain, shortness of breath, nausea, vomiting, diarrhea, urinary symptoms, back pain, neck pain, headache, dizziness, or any other complaints. Symptom Onset: Gradual Symptom Course: Unchanged Activities at Onset: Rest, Light Context: Home Past Medical History - Provider Review Nursing Documentation Reviewed: Yes - Infectious Disease Hx of Infectious Diseases: None - Tetanus Immunization Tetanus Immunization: Up to Date - Past Medical History Past Medical History: Non-Contributing - Cardiac Hx Congestive Heart Failure: Yes Hx Hypertension: Yes Hx Peripheral Edema: Yes - Pulmonary Hx Asthma: Yes Hx Bronchitis: Yes Hx Pulmonary Embolism: Yes - Neurological Hx Migraine: Yes Hx Seizures: Yes - HEENT Hx HEENT Disorder: No - Hematological/Oncological Hx Anemia: Yes - Integumentary Hx Dermatological Disorder: No - Musculoskeletal/Rheumatological Hx Arthritis: Yes - Gastrointestinal Hx Crohn's Disease: Yes Hx Gall Bladder Disease: Yes Hx Gastritis: Yes Hx Gastrointestinal Ulcer: Yes - Genitourinary/Gynecological Hx Sexually Transmitted Diseases: No - Psychiatric Hx Anxiety: Yes Hx Depression: Yes Hx Substance Use: No - Past Surgical History Past Surgical History: Non-Contributing - Surgical History Hx Cholecystectomy: Yes - Anesthesia Hx Anesthesia: Yes Hx Anesthesia Reactions: No Hx Malignant Hyperthermia: No - Suicidal Assessment Feels Threatened In Home Enviroment: No Family/Social History - Physician Review Nursing Documentation Reviewed: Yes Family/Social History: No Known Family HX Smoking Status: Former Smoker Hx Alcohol Use: No Hx Substance Use: No Substance used: PAIN MEDICATION Hx Substance Use Treatment: No Allergies/Home Meds Allergies/Adverse Reactions: Allergies benzethonium chloride Allergy (Intermediate, Verified 09/10/16 17:42) URTICARIA benzocaine Allergy (Unknown, Verified 09/10/16 17:42) ITCHING broccoli Allergy (Unknown, Verified 09/10/16 17:42) ITCHING ketorolac tromethamine [From Toradol] Allergy (Unknown, Verified 09/10/16 17:42) ANAPHYLAXIS lidocaine Allergy (Unknown, Verified 09/10/16 17:42) ITCHING nitroglycerin Allergy (Unknown, Verified 09/10/16 17:42) URTICARIA pineapple Allergy (Unknown, Verified 09/10/16 17:42) ITCHING trazodone Allergy (Unknown, Verified 09/10/16 17:42) "heart flutters", swelling haloperidol [From Haldol] Allergy (Verified 09/10/16 17:42) VOMITING haloperidol lactate [From Haldol] Allergy (Verified 09/10/16 17:42) VOMITING oxycodone Allergy (Verified 09/10/16 17:42) SHORTNESS OF BREATH Unknown reaction, patient refused to answer. ziprasidone HCl [From Geodon] Allergy (Verified 09/10/16 17:42) SHORTNESS OF BREATH palpitations ziprasidone mesylate [From Geodon] Allergy (Verified 09/10/16 17:42) SHORTNESS OF BREATH aspirin Adverse Reaction (Unknown, Verified 09/10/16 17:42) "heart flutters", swelling Lanacane Allergy (Uncoded 09/10/16 17:42) SHORTNESS OF BREATH Unknown reaction, patient refused to answer. Steroids Allergy (Uncoded 09/10/16 17:42) SHORTNESS OF BREATH Unknown reaction, patient refused to answer. steroids Allergy (Uncoded 09/10/16 17:42) "heart flutters", swelling Home Medications: Home Meds Medication Instructions Recorded Confirmed Albuterol HFA [Ventolin HFA 90 2 puff IH TID 03/30/16 09/11/16 mcg/actuation (8 g)] LORazepam [Ativan] 2 mg PO BID 03/30/16 09/11/16 DiphenhydrAMINE [Benadryl] 25 mg PO Q4H 09/11/16 09/11/16 Enoxaparin [Lovenox] 80 mg SQ BID 09/11/16 09/11/16 Esomeprazole Magnesium [Nexium] 40 mg PO DAILY 09/11/16 09/11/16 Review of Systems - Physician Review All systems were reviewed & negative as marked: Yes - Review of Systems Constitutional: Normal. absent: Fevers Eyes: Normal ENT: Normal Respiratory: Normal. absent: SOB, Cough Cardiovascular: Normal. absent: Chest Pain Gastrointestinal: Normal. absent: Diarrhea, Vomiting Genitourinary Female: Normal. absent: Dysuria, Frequency, Hematuria, Urine Output Changes Musculoskeletal: Normal. absent: Neck Pain Skin: Normal. absent: Rash Neurological: Normal. absent: Headache, Dizziness Endocrine: Normal Hemo/Lymphatic: Normal Psychiatric: Anxiety Physical Exam Vital Signs Reviewed: Yes Vital Signs Temp Pulse Resp BP Pulse Ox 09/11/16 00:43 98.2 F 80 17 150/83 98 Temperature: Afebrile Blood Pressure: Normal Pulse: Regular Respiratory Rate: Normal Appearance: Positive for: Well-Appearing, Non-Toxic, Comfortable Pain Distress: None Mental Status: Positive for: Alert and Oriented X 3 - Systems Exam Head: Present: Atraumatic, Normocephalic Pupils: Present: PERRL Extroacular Muscles: Present: EOMI Conjunctiva: Present: Normal Mouth: Present: Moist Mucous Membranes Neck: Present: Normal Range of Motion Respiratory/Chest: Present: Clear to Auscultation, Good Air Exchange. No: Respiratory Distress, Accessory Muscle Use Cardiovascular: Present: Regular Rate and Rhythm, Normal S1, S2. No: Murmurs Abdomen: Present: Normal Bowel Sounds. No: Tenderness, Distention, Peritoneal Signs Back: Present: Normal Inspection Upper Extremity: Present: Normal Inspection. No: Cyanosis, Edema Lower Extremity: Present: Normal Inspection. No: Edema Neurological: Present: GCS=15, CN II-XII Intact, Speech Normal Skin: Present: Warm, Dry, Normal Color. No: Rashes Psychiatric: Present: Alert, Oriented x 3, Normal Insight, Normal Concentration Medical Decision Making ED Course and Treatment: 09/11/16 01:38 Impression: 61 year old female complaining of anxiety, requesting 1 dose of Ativan in ED. Differential Diagnosis include but are not limited to: anxiety Plan: -- Ativan -- Reassess and disposition Prior Visits: Notes and results from previous visits were reviewed. Pt seen on 09/09/16 and 09/10/16 for similar complaint and d/c home. Progress Notes: 09/11/16 01:58 On re-evaluation, the patient feels better and is in no acute distress. I have discussed the results and plan with the patient, who expresses understanding. Patient in agreement with plan to discharged home. Patient is stable for discharge. Patient was instructed to follow up with physician/clinic in 1-2 days or return if symptoms worsen or new concerning symptoms arise. - Medication Orders Current Medication Orders: Discontinued Medications Lorazepam (Ativan) 2 mg PO ONCE STA Stop: 09/11/16 01:41 Last Admin: 09/11/16 01:53 Dose: 2 mg - Scribe Statement The provider has reviewed the documentation as recorded by the Scribe Alyson Echeverria All medical record entries made by the Scribe were at my direction and personally dictated by me. I have reviewed the chart and agree that the record accurately reflects my personal performance of the history, physical exam, medical decision making, and the department course for this patient. I have also personally directed, reviewed, and agree with the discharge instructions and disposition. Provider Attestation: All medical record entries made by the Scribe were at my direction and personally dictated by me. I have reviewed the chart and agree that the record accurately reflects my personal performance of the history, physical exam, medical decision making, and the department course for this patient. I have also personally directed, reviewed, and agree with the discharge instructions and disposition. Disposition/Present on Arrival - Present on Arrival Any Indicators Present on Arrival: No History of DVT/PE: No History of Uncontrolled Diabetes: No Urinary Catheter: No History of Decub. Ulcer: No History Surgical Site Infection Following: None - Disposition Have Diagnosis and Disposition been Completed?: Yes Diagnosis: Anxiety Disposition: HOME/ ROUTINE Disposition Time: 01:58 Patient Plan: Discharge Patient Problems: Current Active Problems Problem Status Onset Anxiety Acute Condition: STABLE Discharge Instructions (ExitCare): Anxiety (ED) Additional Instructions: Follow up with your doctor tommorrow
== END 2016-09-11 02:05 | disposition home or self-care (01) ==
LOC: ED 00:28
DX: F41.9 Anxiety disorder, unspecified (principal)

== ENCOUNTER 2016-10-14 20:45 | Emergency (ER) | payer OTHER ==
[2016-10-14 20:46] VITALS: BMI 33.9
[2016-10-14 21:19] VITALS: BP 177/76; PULSE 78; RESP 16; TEMP 98.1; O2SAT 97
--- NOTE | 2016-10-14 21:24 | ED PDOC ---
Arrival/HPI - General Chief Complaint: Seizure Time Seen by Provider: 10/14/16 20:48 Historian: Patient - History of Present Illness Narrative History of Present Illness (Text): 10/14/16 21:19 Justina Abreu is a 61 year old female, with a past medical history of COPD, asthma, anemia, anxiety, and seizures, presents to the emergency department for evaluation following an unwitnessed seizure episode. Patient states she was on the couch when she experienced a possible seizure episode and woke up on the floor. Denies any tongue biting. States she did not take her Dilantin today, and wants to get her levels checked. States she feels fine otherwise. Denies fever, chills, headache, dizziness, chest pain, shortness of breath, nausea, vomiting, diarrhea, urinary symptoms, or any other complaints at this time. PMD: Time/Duration: 1-3 hours Symptom Onset: Sudden Symptom Course: Improving Severity Level: Mild Activities at Onset: Light Past Medical History - Provider Review Nursing Documentation Reviewed: Yes - Infectious Disease Hx of Infectious Diseases: None - Tetanus Immunization Tetanus Immunization: Up to Date - Past Medical History Past Medical History: Non-Contributing - Cardiac Hx Congestive Heart Failure: Yes Hx Hypertension: Yes Hx Peripheral Edema: Yes - Pulmonary Hx Asthma: Yes Hx Bronchitis: Yes Hx Pulmonary Embolism: Yes - Neurological Hx Migraine: Yes Hx Seizures: Yes - HEENT Hx HEENT Disorder: No - Renal Hx Renal Disorder: No - Hematological/Oncological Hx Anemia: Yes - Integumentary Hx Dermatological Disorder: No - Musculoskeletal/Rheumatological Hx Arthritis: Yes - Gastrointestinal Hx Crohn's Disease: Yes Hx Gall Bladder Disease: Yes Hx Gastritis: Yes Hx Gastrointestinal Ulcer: Yes - Genitourinary/Gynecological Hx Genitourinary Disorders: No Hx Sexually Transmitted Diseases: No - Psychiatric Hx Anxiety: Yes Hx Depression: Yes Hx Substance Use: No - Past Surgical History Past Surgical History: Non-Contributing - Surgical History Hx Cholecystectomy: Yes - Anesthesia Hx Anesthesia: Yes Hx Anesthesia Reactions: No Hx Malignant Hyperthermia: No - Suicidal Assessment Feels Threatened In Home Enviroment: No Family/Social History - Physician Review Nursing Documentation Reviewed: Yes Family/Social History: No Known Family HX Smoking Status: Former Smoker Hx Alcohol Use: No Hx Substance Use: No Substance used: PAIN MEDICATION Hx Substance Use Treatment: No Allergies/Home Meds Allergies/Adverse Reactions: Allergies benzethonium chloride Allergy (Intermediate, Verified 10/14/16 21:10) URTICARIA benzocaine Allergy (Unknown, Verified 10/14/16 21:10) ITCHING broccoli Allergy (Unknown, Verified 10/14/16 21:10) ITCHING ketorolac tromethamine [From Toradol] Allergy (Unknown, Verified 10/14/16 21:10) ANAPHYLAXIS lidocaine Allergy (Unknown, Verified 10/14/16 21:10) ITCHING nitroglycerin Allergy (Unknown, Verified 10/14/16 21:10) URTICARIA pineapple Allergy (Unknown, Verified 10/14/16 21:10) ITCHING trazodone Allergy (Unknown, Verified 10/14/16 21:10) "heart flutters", swelling haloperidol [From Haldol] Allergy (Verified 10/14/16 21:10) VOMITING haloperidol lactate [From Haldol] Allergy (Verified 10/14/16 21:10) VOMITING oxycodone Allergy (Verified 10/14/16 21:10) SHORTNESS OF BREATH Unknown reaction, patient refused to answer. ziprasidone HCl [From Geodon] Allergy (Verified 10/14/16 21:10) SHORTNESS OF BREATH palpitations ziprasidone mesylate [From Geodon] Allergy (Verified 10/14/16 21:10) SHORTNESS OF BREATH aspirin Adverse Reaction (Unknown, Verified 10/14/16 21:10) "heart flutters", swelling Lanacane Allergy (Uncoded 10/14/16 21:10) SHORTNESS OF BREATH Unknown reaction, patient refused to answer. Steroids Allergy (Uncoded 10/14/16 21:10) SHORTNESS OF BREATH Unknown reaction, patient refused to answer. steroids Allergy (Uncoded 10/14/16 21:10) "heart flutters", swelling Home Medications: Home Meds Medication Instructions Recorded Confirmed Albuterol HFA [Ventolin HFA 90 2 puff IH TID 03/30/16 10/14/16 mcg/actuation (8 g)] LORazepam [Ativan] 2 mg PO BID 03/30/16 10/14/16 DiphenhydrAMINE [Benadryl] 25 mg PO Q4H 09/11/16 10/14/16 Enoxaparin [Lovenox] 80 mg SQ BID 09/11/16 10/14/16 Esomeprazole Magnesium [Nexium] 40 mg PO DAILY 09/11/16 10/14/16 Review of Systems - Physician Review All systems were reviewed & negative as marked: Yes - Review of Systems Constitutional: Normal. absent: Fatigue, Fevers Respiratory: Normal. absent: SOB, Cough, Sputum Cardiovascular: Normal. absent: Chest Pain, Palpitations Gastrointestinal: Normal. absent: Abdominal Pain, Diarrhea, Nausea, Vomiting Skin: Normal Neurological: Seizure. absent: Headache, Dizziness Psychiatric: Normal Physical Exam Vital Signs Reviewed: Yes Vital Signs Temp Pulse Resp BP Pulse Ox 10/14/16 21:00 98.1 F 78 16 177/76 H 97 Temperature: Afebrile Blood Pressure: Hypertensive Pulse: Regular Respiratory Rate: Normal Appearance: Positive for: Well-Appearing, Non-Toxic, Comfortable Pain Distress: None Mental Status: Positive for: Alert and Oriented X 3 - Systems Exam Head: Present: Atraumatic, Normocephalic Pupils: Present: PERRL Conjunctiva: Present: Normal Mouth: Present: Moist Mucous Membranes Neck: Present: Normal Range of Motion. No: MIDLINE TENDERNESS, Paraspinal Tenderness Respiratory/Chest: Present: Clear to Auscultation, Good Air Exchange. No: Respiratory Distress, Accessory Muscle Use Cardiovascular: Present: Regular Rate and Rhythm, Normal S1, S2. No: Murmurs Abdomen: Present: Normal Bowel Sounds. No: Tenderness, Distention, Peritoneal Signs Upper Extremity: Present: Normal Inspection. No: Cyanosis, Edema Lower Extremity: Present: Normal Inspection. No: Edema Neurological: Present: GCS=15, CN II-XII Intact, Speech Normal, Motor Func Grossly Intact, Normal Sensory Function Skin: Present: Warm, Dry, Normal Color. No: Rashes Psychiatric: Present: Alert, Oriented x 3, Normal Insight, Normal Concentration Medical Decision Making ED Course and Treatment: 10/14/16 21:25 Impression: a 61 y/o female who presents to the emergency department following seizure episode. States she did not take her Dilantin today, and wants to check her Dilantin levels. Plan: -- Labs -- Dilantin Progress Notes: 10/15/16 00:12 Patient with a Dilantin level of 15, wnl. On reevaluation the patient feels better and is in no acute distress. I have discussed the results and plan with the patient, who expresses understanding. Patient given the opportunity to ask question, all questions were answered and there is agreement with the plan to discharge the patient home. Patient is stable for discharge. Patient was instructed to follow up with physician/clinic in 1-2 days or return if symptoms persist/worsen or new concerning symptoms arise. - Lab Interpretations Lab Results: 10/14/16 23:00 10/14/16 23:00 Lab Results 10/14/16 23:00: Sodium 138, Potassium 4.1, Chloride 107, Carbon Dioxide 26, Anion Gap 9 L, BUN 14, Creatinine 0.6, Est GFR ( Amer) > 60, Est GFR (Non -Af Amer) > 60, Random Glucose 91, Calcium 8.4 10/14/16 23:00: WBC 4.1 L, RBC 3.75, Hgb 11.8 L, Hct 36.5, MCV 97.3, MCH 31.5, MCHC 32.3, RDW 14.2, Plt Count 134, MPV 10.3 10/14/16 23:00: Phenytoin 15 - Scribe Statement The provider has reviewed the documentation as recorded by the Barber Peña Provider Attestation: All medical record entries made by the Barber were at my direction and personally dictated by me. I have reviewed the chart and agree that the record accurately reflects my personal performance of the history, physical exam, medical decision making, and the department course for this patient. I have also personally directed, reviewed, and agree with the discharge instructions and disposition. Disposition/Present on Arrival - Present on Arrival Any Indicators Present on Arrival: No History of DVT/PE: No History of Uncontrolled Diabetes: No Urinary Catheter: No History of Decub. Ulcer: No History Surgical Site Infection Following: None - Disposition Have Diagnosis and Disposition been Completed?: Yes Diagnosis: Seizure disorder Disposition: HOME/ ROUTINE Disposition Time: 23:50 Patient Plan: Discharge Patient Problems: Current Active Problems Problem Status Onset Seizure disorder Acute Condition: STABLE Discharge Instructions (ExitCare): Epilepsy (ED) Additional Instructions: Continue current meds /follow up with your doctor this week Referrals: Jony Sy MD [Primary Care Provider] - Follow up with primary
[2016-10-14 23:30] LABS: BLOOD UREA NITROGEN 14 mg/dL (7-21); CALCIUM 8.4 mg/dL (8.4-10.5); GFR AFRICAN-AMERICAN > 60; GFR NON-AFRICAN AMERICAN > 60
[2016-10-14 23:33] LABS: HEMOGLOBIN 11.8 gm/dL (12.0-16.0); MEAN CELL VOLUME 97.3 fL (80.0-105.0); MEAN CORPUSCULAR HEMOGLOBIN 31.5 pg (25.0-35.0); MEAN CORPUSCULAR HGB CONC 32.3 g/dl (31.0-37.0); MEAN PLATELET VOLUME 10.3 fl (7.0-11.0); RBC 3.75 10^6/uL (3.5-6.1); RED CELL DISTRIBUTION WIDTH 14.2 % (11.5-14.5); WHITE BLOOD COUNT 4.1 10^3/ul (4.5-11.0)
== END 2016-10-15 00:12 | disposition home or self-care (01) ==
LOC: ED 20:45
DX: G40.909 Epilepsy, unspecified, not intractable, without status epilepticus (principal)

== ENCOUNTER 2016-10-29 00:52 | Emergency (ER) | payer OTHER ==
[2016-10-29 00:54] VITALS: BMI 33.9
[2016-10-29 01:01] VITALS: BP 144/62; PULSE 81; RESP 16; TEMP 98.4; O2SAT 99
--- NOTE | 2016-10-29 02:37 | ED PDOC ---
Arrival/HPI - General Chief Complaint: Chest Pain Time Seen by Provider: 10/29/16 01:34 Historian: Patient - History of Present Illness Narrative History of Present Illness (Text): 10/29/16 02:20 Justina Abreu is a 61 year old female whose past medical history includes COPD , asthma, anemia, anxiety and seizures, presents to the emergency department complaining of anxiety. Patient states tonight she had a panic attack which is consistent with previous episodes of anxiety. Patient requesting 1 dose of Ativan in Emergency department until she can follow-up with her doctor. Patient is well-known to ER staff and has been seen on multiple occasions for similar complaint. Patient denies any fever, shortness of breath, nausea, vomiting, diarrhea, urinary symptoms, back pain, neck pain, headache, dizziness, or any other complaints. Symptom Onset: Gradual Symptom Course: Unchanged Activities at Onset: Rest, Light Context: Home Past Medical History - Provider Review Nursing Documentation Reviewed: Yes - Infectious Disease Hx of Infectious Diseases: None - Tetanus Immunization Tetanus Immunization: Up to Date - Past Medical History Past Medical History: Non-Contributing - Cardiac Hx Congestive Heart Failure: Yes Hx Hypertension: Yes Hx Peripheral Edema: Yes - Pulmonary Hx Asthma: Yes Hx Bronchitis: Yes Hx Pulmonary Embolism: Yes - Neurological Hx Migraine: Yes Hx Seizures: Yes - HEENT Hx HEENT Disorder: No - Renal Hx Renal Disorder: No - Hematological/Oncological Hx Anemia: Yes - Integumentary Hx Dermatological Disorder: No - Musculoskeletal/Rheumatological Hx Arthritis: Yes - Gastrointestinal Hx Crohn's Disease: Yes Hx Gall Bladder Disease: Yes Hx Gastritis: Yes Hx Gastrointestinal Ulcer: Yes - Genitourinary/Gynecological Hx Genitourinary Disorders: No Hx Sexually Transmitted Diseases: No - Psychiatric Hx Anxiety: Yes Hx Depression: Yes Hx Substance Use: No - Past Surgical History Past Surgical History: Non-Contributing - Surgical History Hx Cholecystectomy: Yes - Anesthesia Hx Anesthesia: Yes Hx Anesthesia Reactions: No Hx Malignant Hyperthermia: No - Suicidal Assessment Feels Threatened In Home Enviroment: No Family/Social History - Physician Review Nursing Documentation Reviewed: Yes Family/Social History: Unknown Family HX Smoking Status: Former Smoker Hx Alcohol Use: No Hx Substance Use: No Substance used: PAIN MEDICATION Hx Substance Use Treatment: No Allergies/Home Meds Allergies/Adverse Reactions: Allergies benzethonium chloride Allergy (Intermediate, Verified 10/29/16 01:04) URTICARIA benzocaine Allergy (Unknown, Verified 10/29/16 01:04) ITCHING broccoli Allergy (Unknown, Verified 10/29/16 01:04) ITCHING ketorolac tromethamine [From Toradol] Allergy (Unknown, Verified 10/29/16 01:04) ANAPHYLAXIS lidocaine Allergy (Unknown, Verified 10/29/16 01:04) ITCHING nitroglycerin Allergy (Unknown, Verified 10/29/16 01:04) URTICARIA pineapple Allergy (Unknown, Verified 10/29/16 01:04) ITCHING trazodone Allergy (Unknown, Verified 10/29/16 01:04) "heart flutters", swelling haloperidol [From Haldol] Allergy (Verified 10/29/16 01:04) VOMITING haloperidol lactate [From Haldol] Allergy (Verified 10/29/16 01:04) VOMITING oxycodone Allergy (Verified 10/29/16 01:04) SHORTNESS OF BREATH Unknown reaction, patient refused to answer. ziprasidone HCl [From Geodon] Allergy (Verified 10/29/16 01:04) SHORTNESS OF BREATH palpitations ziprasidone mesylate [From Geodon] Allergy (Verified 10/29/16 01:04) SHORTNESS OF BREATH aspirin Adverse Reaction (Unknown, Verified 10/29/16 01:04) "heart flutters", swelling Lanacane Allergy (Uncoded 10/29/16 01:04) SHORTNESS OF BREATH Unknown reaction, patient refused to answer. Steroids Allergy (Uncoded 10/29/16 01:04) SHORTNESS OF BREATH Unknown reaction, patient refused to answer. steroids Allergy (Uncoded 10/29/16 01:04) "heart flutters", swelling Home Medications: Home Meds Medication Instructions Recorded Confirmed Albuterol HFA [Ventolin HFA 90 2 puff IH TID 03/30/16 10/14/16 mcg/actuation (8 g)] LORazepam [Ativan] 2 mg PO BID 03/30/16 10/14/16 DiphenhydrAMINE [Benadryl] 25 mg PO Q4H 09/11/16 10/14/16 Enoxaparin [Lovenox] 80 mg SQ BID 09/11/16 10/14/16 Esomeprazole Magnesium [Nexium] 40 mg PO DAILY 09/11/16 10/14/16 Review of Systems - Physician Review All systems were reviewed & negative as marked: Yes - Review of Systems Constitutional: Normal. absent: Fevers Eyes: Normal ENT: Normal Respiratory: Normal. absent: SOB, Cough Gastrointestinal: Normal. absent: Abdominal Pain, Diarrhea, Nausea, Vomiting Genitourinary Female: Normal. absent: Dysuria, Frequency, Hematuria, Urine Output Changes Musculoskeletal: Normal. absent: Back Pain, Neck Pain Skin: Normal. absent: Rash Neurological: Normal. absent: Headache, Dizziness Endocrine: Normal Hemo/Lymphatic: Normal Psychiatric: Anxiety Physical Exam Vital Signs Reviewed: Yes Vital Signs Temp Pulse Resp BP Pulse Ox 10/29/16 01:00 98.4 F 81 16 144/62 99 Temperature: Afebrile Blood Pressure: Normal Pulse: Regular Respiratory Rate: Normal Appearance: Positive for: Well-Appearing, Non-Toxic, Comfortable Pain Distress: None Mental Status: Positive for: Alert and Oriented X 3 - Systems Exam Head: Present: Atraumatic, Normocephalic Pupils: Present: PERRL Extroacular Muscles: Present: EOMI Conjunctiva: Present: Normal Mouth: Present: Moist Mucous Membranes Neck: Present: Normal Range of Motion Respiratory/Chest: Present: Clear to Auscultation, Good Air Exchange. No: Respiratory Distress, Accessory Muscle Use Cardiovascular: Present: Regular Rate and Rhythm, Normal S1, S2. No: Murmurs Abdomen: Present: Normal Bowel Sounds. No: Tenderness, Distention, Peritoneal Signs Back: Present: Normal Inspection Upper Extremity: Present: Normal Inspection. No: Cyanosis, Edema Lower Extremity: Present: Normal Inspection. No: Edema Neurological: Present: GCS=15, CN II-XII Intact, Speech Normal Skin: Present: Warm, Dry, Normal Color. No: Rashes Psychiatric: Present: Alert, Oriented x 3, Normal Insight, Normal Concentration Medical Decision Making ED Course and Treatment: 10/29/16 02:20 Impression: 61 year old female c/o anxiety. Differential Diagnosis included but are not limited to: anxiety Plan: -- EKG -- Ativan - Reassess and disposition Progress Notes: Reviewed EKG, NSR at 83 bpm. T wave changes inferiorly. Unchanged from previous on 09/10/2016. 10/29/16 03:45 On reevaluation the patient feels better and is in no acute distress. I have discussed the results and plan with the patient, who expresses understanding. Patient given the opportunity to ask question, all questions were answered and there is agreement with the plan to discharge the patient home. Patient is stable for discharge. Patient was instructed to follow up with physician/clinic in 1-2 days or return if symptoms persist/worsen or new concerning symptoms arise. - Medication Orders Current Medication Orders: Discontinued Medications Lorazepam (Ativan) 2 mg IM ONCE ONE Stop: 10/29/16 02:24 Last Admin: 10/29/16 02:47 Dose: 2 mg - Scribe Statement The provider has reviewed the documentation as recorded by the Barber Echeverria Provider Scribe Attestation: All medical record entries made by the Mattieibcara were at my direction and personally dictated by me. I have reviewed the chart and agree that the record accurately reflects my personal performance of the history, physical exam, medical decision making, and the department course for this patient. I have also personally directed, reviewed, and agree with the discharge instructions and disposition. Disposition/Present on Arrival - Present on Arrival Any Indicators Present on Arrival: No History of DVT/PE: No History of Uncontrolled Diabetes: No Urinary Catheter: No History of Decub. Ulcer: No History Surgical Site Infection Following: None - Disposition Have Diagnosis and Disposition been Completed?: Yes Diagnosis: Anxiety attack Disposition: HOME/ ROUTINE Disposition Time: 03:47 Patient Plan: Discharge Patient Problems: Current Active Problems Problem Status Onset Anxiety attack Acute Condition: GOOD Discharge Instructions (ExitCare): Anxiety (ED) Additional Instructions: Continue your prescribed medication/follow up with your doctor this week Referrals: Pinky Aguilar MD [Primary Care Provider] - Follow up with primary
--- NOTE | 2016-10-29 19:36 | CARD ---
APPROVED REPORT EKG Measurement Heart [id number] <Conclusion> Normal sinus rhythm Possible Left atrial enlargement T wave abnormality, consider inferior ischemia Abnormal ECG
== END 2016-10-29 04:24 | disposition home or self-care (01) ==
LOC: ED 00:52
DX: F41.9 Anxiety disorder, unspecified (principal); I10 Essential (primary) hypertension; Z87.891 Personal history of nicotine dependence
CPT/HCPCS: 93005; 96372; 99283; J2060

== ENCOUNTER 2016-11-03 07:58 | Emergency (ER) | payer OTHER ==
[2016-11-03 07:59] VITALS: BMI 33.9
[2016-11-03 08:07] VITALS: RESP 19; O2SAT 97
--- NOTE | 2016-11-03 09:32 | ED PDOC ---
Arrival/HPI - General Chief Complaint: Anxiety Time Seen by Provider: 11/03/16 08:13 Historian: Patient - History of Present Illness Narrative History of Present Illness (Text): 11/03/16 09:32 A 61 year old female, whose past medical history includes anxiety, presents to the emergency department complaining she ran out of her Ativan that was prescribed to her. Patient has an appointment with pain management doctor tomorrow. Patient also reports she feels anxious and nervous today, but denies any other complaints at this time. Symptom Onset: Sudden Symptom Course: Unchanged Activities at Onset: Rest Modifying Factors (Text): none Past Medical History - Provider Review Nursing Documentation Reviewed: Yes - Infectious Disease Hx of Infectious Diseases: None - Tetanus Immunization Tetanus Immunization: Up to Date - Reproductive Menopause: Yes - Past Medical History Past Medical History: Non-Contributing - Cardiac Hx Congestive Heart Failure: Yes Hx Hypertension: Yes Hx Peripheral Edema: Yes - Pulmonary Hx Asthma: Yes Hx Bronchitis: Yes Hx Pulmonary Embolism: Yes - Neurological Hx Migraine: Yes Hx Seizures: Yes - HEENT Hx HEENT Disorder: No - Renal Hx Renal Disorder: No - Hematological/Oncological Hx Anemia: Yes - Integumentary Hx Dermatological Disorder: No - Musculoskeletal/Rheumatological Hx Arthritis: Yes - Gastrointestinal Hx Crohn's Disease: Yes Hx Gall Bladder Disease: Yes Hx Gastritis: Yes Hx Gastrointestinal Ulcer: Yes - Genitourinary/Gynecological Hx Genitourinary Disorders: No Hx Sexually Transmitted Diseases: No - Psychiatric Hx Anxiety: Yes Hx Depression: Yes Hx Substance Use: No - Past Surgical History Past Surgical History: Non-Contributing - Surgical History Hx Cholecystectomy: Yes - Anesthesia Hx Anesthesia: Yes Hx Anesthesia Reactions: No Hx Malignant Hyperthermia: No - Suicidal Assessment Feels Threatened In Home Enviroment: No Family/Social History - Physician Review Nursing Documentation Reviewed: Yes Family/Social History: No Known Family HX Smoking Status: Former Smoker Hx Alcohol Use: No Hx Substance Use: No Substance used: PAIN MEDICATION Hx Substance Use Treatment: No Allergies/Home Meds Allergies/Adverse Reactions: Allergies benzethonium chloride Allergy (Intermediate, Verified 11/03/16 08:09) URTICARIA benzocaine Allergy (Unknown, Verified 11/03/16 08:09) ITCHING broccoli Allergy (Unknown, Verified 11/03/16 08:09) ITCHING ketorolac tromethamine [From Toradol] Allergy (Unknown, Verified 11/03/16 08:09) ANAPHYLAXIS lidocaine Allergy (Unknown, Verified 11/03/16 08:09) ITCHING nitroglycerin Allergy (Unknown, Verified 11/03/16 08:09) URTICARIA pineapple Allergy (Unknown, Verified 11/03/16 08:09) ITCHING trazodone Allergy (Unknown, Verified 11/03/16 08:09) "heart flutters", swelling haloperidol [From Haldol] Allergy (Verified 11/03/16 08:09) VOMITING haloperidol lactate [From Haldol] Allergy (Verified 11/03/16 08:09) VOMITING oxycodone Allergy (Verified 10/29/16 01:04) SHORTNESS OF BREATH Unknown reaction, patient refused to answer. ziprasidone HCl [From Geodon] Allergy (Verified 10/29/16 01:04) SHORTNESS OF BREATH palpitations ziprasidone mesylate [From Geodon] Allergy (Verified 10/29/16 01:04) SHORTNESS OF BREATH aspirin Adverse Reaction (Unknown, Verified 10/29/16 01:04) "heart flutters", swelling Lanacane Allergy (Uncoded 10/29/16 01:04) SHORTNESS OF BREATH Unknown reaction, patient refused to answer. Steroids Allergy (Uncoded 10/29/16 01:04) SHORTNESS OF BREATH Unknown reaction, patient refused to answer. steroids Allergy (Uncoded 10/29/16 01:04) "heart flutters", swelling Home Medications: Home Meds Medication Instructions Recorded Confirmed Albuterol HFA [Ventolin HFA 90 2 puff IH TID 03/30/16 11/03/16 mcg/actuation (8 g)] LORazepam [Ativan] 2 mg PO BID 03/30/16 11/03/16 DiphenhydrAMINE [Benadryl] 25 mg PO Q4H 09/11/16 11/03/16 Enoxaparin [Lovenox] 80 mg SQ BID 09/11/16 11/03/16 Esomeprazole Magnesium [Nexium] 40 mg PO DAILY 09/11/16 11/03/16 Review of Systems - Physician Review All systems were reviewed & negative as marked: Yes - Review of Systems Constitutional: absent: Fevers Psychiatric: Anxiety Physical Exam - Physical Exam Narrative Physical Exam (Text): 11/03/16 09:30 Head: Atraumatic. Normocephalic. Eyes: PERRL. EOMI. Conjunctivae are not pale. ENT: Mucous membranes are moist and intact. Oropharynx is clear and symmetric. Neck: Supple. Full ROM. No JVD. No lymphadenopathy. Cardiovascular: Regular rate. Regular rhythm. No murmurs, rubs, or gallops. Distal pulses are 2+ and symmetric. Pulmonary/Chest: No evidence of respiratory distress. Clear to auscultation bilaterally. No wheezing, rales or rhonchi. Abdominal: Soft and non-distended. There is no tenderness. No rebound, guarding, or rigidity. No organomegaly. Good bowel sounds. Back: No CVA tenderness. Extremities: No edema. No cyanosis. No clubbing. Full range of motion in all extremities. No calf tenderness. Skin: Skin is warm and dry. No petechiae. No purpura. Neurological: Alert, awake, and oriented to person, place, time, and situation. Normal speech. Psychiatric: Anxious. Good eye contact. Normal interaction, affect. Vital Signs Reviewed: Yes Vital Signs Temp Pulse Resp BP Pulse Ox 11/03/16 08:02 98 F 86 19 136/80 97 Temperature: Afebrile Blood Pressure: Normal Pulse: Regular Respiratory Rate: Normal Appearance: Positive for: Well-Appearing, Non-Toxic, Comfortable Pain Distress: None Mental Status: Positive for: Alert and Oriented X 3 Medical Decision Making ED Course and Treatment: 11/03/16 09:29 Impression: A 61 year old female ran out of Ativan and feels anxious and nervous today. Plan: -- Ativan -- Reassess and disposition Prior Visits: Notes and results from previous visits were reviewed. Patient last reported to the emergency department on 10/29/16 for evaluation of anxiety. Progress Notes: - Medication Orders Current Medication Orders: Discontinued Medications Lorazepam (Ativan) 2 mg IM ONCE ONE PRN Reason: Protocol Stop: 11/03/16 08:35 Last Admin: 11/03/16 08:47 Dose: 2 mg - Scribe Statement The provider has reviewed the documentation as recorded by the Barber Murry Provider Scribe Attestation: All medical record entries made by the Scribe were at my direction and personally dictated by me. I have reviewed the chart and agree that the record accurately reflects my personal performance of the history, physical exam, medical decision making, and the department course for this patient. I have also personally directed, reviewed, and agree with the discharge instructions and disposition. Disposition/Present on Arrival - Present on Arrival History of DVT/PE: No History of Uncontrolled Diabetes: No Urinary Catheter: No History of Decub. Ulcer: No History Surgical Site Infection Following: None - Disposition Diagnosis: Anxiety Disposition: HOME/ ROUTINE Patient Problems: Current Active Problems Problem Status Onset Anxiety Acute Condition: GOOD Discharge Instructions (ExitCare): Anxiety (ED) Additional Instructions: For any headaches, any chest pain or shortness of breath, any abdominal pain, any bloody urine or stool, any palpitations, any persistent or worsening of symptoms, get rechecked. YOU MUST FOLLOW-UP with your "cancer doctor" at [facility] as discussed and as scheduled next week. Take your medication only as directed. Risks of improper medication use have been reviewed with you. Follow-up TOMORROW SCHEDULED with your physician.
[2016-11-03 10:33] VITALS: BP 132/82; PULSE 80; TEMP 98
== END 2016-11-03 11:12 | disposition home or self-care (01) ==
LOC: ED 07:58
DX: F41.9 Anxiety disorder, unspecified (principal)
CPT/HCPCS: 96372; 99284; J1885; J2060

== ENCOUNTER 2016-11-07 01:08 | Emergency (ER) | payer OTHER ==
[2016-11-07 01:17] VITALS: BP 137/77; PULSE 89; RESP 18; TEMP 98.4; O2SAT 99
[2016-11-07 01:33] VITALS: BMI 38.4
--- NOTE | 2016-11-07 01:42 | ED PDOC ---
Arrival/HPI - General Chief Complaint: Allergic Reaction Time Seen by Provider: 11/07/16 01:10 Historian: Patient - History of Present Illness Narrative History of Present Illness (Text): 11/07/16 01:42 Justina Abreu is a 61 year old female whose past medical history includes COPD , asthma, anemia, anxiety and seizures, presents to the emergency department complaining of an allergic reaction. Patient states she ate veal parmesan 3 hours prior to arrival and began experiencing a pruritic rash 30 minutes after eating. Patient denies any facial/tongue swelling, chest pain, shortness of breath, abdominal pain, nausea, vomiting, headache, or any other complaints. Time/Duration: 1-3 hours Symptom Onset: Gradual Symptom Course: Unchanged Activities at Onset: Light, Eating Context: Home Past Medical History - Provider Review Nursing Documentation Reviewed: Yes - Infectious Disease Hx of Infectious Diseases: None - Tetanus Immunization Tetanus Immunization: Up to Date - Past Medical History Past Medical History: Non-Contributing - Cardiac Hx Congestive Heart Failure: Yes Hx Hypertension: Yes Hx Peripheral Edema: Yes - Pulmonary Hx Asthma: Yes Hx Bronchitis: Yes Hx Pulmonary Embolism: Yes - Neurological Hx Migraine: Yes Hx Seizures: Yes - HEENT Hx HEENT Disorder: No - Renal Hx Renal Disorder: No - Hematological/Oncological Hx Anemia: Yes - Integumentary Hx Dermatological Disorder: No - Musculoskeletal/Rheumatological Hx Arthritis: Yes - Gastrointestinal Hx Crohn's Disease: Yes Hx Gall Bladder Disease: Yes Hx Gastritis: Yes Hx Gastrointestinal Ulcer: Yes - Genitourinary/Gynecological Hx Genitourinary Disorders: No Hx Sexually Transmitted Diseases: No - Psychiatric Hx Anxiety: Yes Hx Depression: Yes Hx Substance Use: No - Past Surgical History Past Surgical History: Non-Contributing - Surgical History Hx Cholecystectomy: Yes - Anesthesia Hx Anesthesia: Yes Hx Anesthesia Reactions: No Hx Malignant Hyperthermia: No - Suicidal Assessment Feels Threatened In Home Enviroment: No Family/Social History - Physician Review Nursing Documentation Reviewed: Yes Family/Social History: Unknown Family HX Smoking Status: Former Smoker Hx Alcohol Use: No Hx Substance Use: No Substance used: PAIN MEDICATION Hx Substance Use Treatment: No Allergies/Home Meds Allergies/Adverse Reactions: Allergies benzethonium chloride Allergy (Intermediate, Verified 11/03/16 08:09) URTICARIA benzocaine Allergy (Unknown, Verified 11/03/16 08:09) ITCHING broccoli Allergy (Unknown, Verified 11/03/16 08:09) ITCHING ketorolac tromethamine [From Toradol] Allergy (Unknown, Verified 11/03/16 08:09) ANAPHYLAXIS lidocaine Allergy (Unknown, Verified 11/03/16 08:09) ITCHING nitroglycerin Allergy (Unknown, Verified 11/03/16 08:09) URTICARIA pineapple Allergy (Unknown, Verified 11/03/16 08:09) ITCHING trazodone Allergy (Unknown, Verified 11/03/16 08:09) "heart flutters", swelling haloperidol [From Haldol] Allergy (Verified 11/03/16 08:09) VOMITING haloperidol lactate [From Haldol] Allergy (Verified 11/03/16 08:09) VOMITING oxycodone Allergy (Verified 10/29/16 01:04) SHORTNESS OF BREATH Unknown reaction, patient refused to answer. ziprasidone HCl [From Geodon] Allergy (Verified 10/29/16 01:04) SHORTNESS OF BREATH palpitations ziprasidone mesylate [From Geodon] Allergy (Verified 10/29/16 01:04) SHORTNESS OF BREATH aspirin Adverse Reaction (Unknown, Verified 10/29/16 01:04) "heart flutters", swelling Lanacane Allergy (Uncoded 10/29/16 01:04) SHORTNESS OF BREATH Unknown reaction, patient refused to answer. Steroids Allergy (Uncoded 10/29/16 01:04) SHORTNESS OF BREATH Unknown reaction, patient refused to answer. steroids Allergy (Uncoded 10/29/16 01:04) "heart flutters", swelling Home Medications: Home Meds Medication Instructions Recorded Confirmed Albuterol HFA [Ventolin HFA 90 2 puff IH TID 03/30/16 11/03/16 mcg/actuation (8 g)] LORazepam [Ativan] 2 mg PO BID 03/30/16 11/03/16 DiphenhydrAMINE [Benadryl] 25 mg PO Q4H 09/11/16 11/03/16 Enoxaparin [Lovenox] 80 mg SQ BID 09/11/16 11/03/16 Esomeprazole Magnesium [Nexium] 40 mg PO DAILY 09/11/16 11/03/16 Review of Systems - Physician Review All systems were reviewed & negative as marked: Yes - Review of Systems Constitutional: Normal. absent: Fevers Eyes: Normal ENT: Normal Respiratory: Normal. absent: SOB, Cough Cardiovascular: Normal. absent: Chest Pain Gastrointestinal: Normal. absent: Abdominal Pain, Diarrhea, Nausea, Vomiting Genitourinary Female: Normal. absent: Dysuria, Frequency, Hematuria, Urine Output Changes Musculoskeletal: Normal. absent: Back Pain, Neck Pain Skin: Rash, Pruritis Neurological: Normal. absent: Headache, Dizziness Endocrine: Normal Hemo/Lymphatic: Normal Psychiatric: Normal Physical Exam Vital Signs Reviewed: Yes Vital Signs Temp Pulse Resp BP Pulse Ox 11/07/16 01:16 98.4 F 89 18 137/77 99 Temperature: Afebrile Blood Pressure: Normal Pulse: Regular Respiratory Rate: Normal Appearance: Positive for: Well-Appearing, Non-Toxic, Comfortable Pain Distress: None Mental Status: Positive for: Alert and Oriented X 3 - Systems Exam Head: Present: Atraumatic, Normocephalic Pupils: Present: PERRL Extroacular Muscles: Present: EOMI Conjunctiva: Present: Normal Mouth: Present: Moist Mucous Membranes Neck: Present: Normal Range of Motion Respiratory/Chest: Present: Clear to Auscultation, Good Air Exchange. No: Respiratory Distress, Accessory Muscle Use Cardiovascular: Present: Regular Rate and Rhythm, Normal S1, S2. No: Murmurs Abdomen: Present: Normal Bowel Sounds. No: Tenderness, Distention, Peritoneal Signs Back: Present: Normal Inspection Upper Extremity: Present: Normal Inspection. No: Cyanosis, Edema Lower Extremity: Present: Normal Inspection. No: Edema Neurological: Present: GCS=15, CN II-XII Intact, Speech Normal Skin: Present: Warm, Dry, Rashes (Few scattered areas of urticaria to arms, chest, and neck), Normal Color Psychiatric: Present: Alert, Oriented x 3, Normal Insight, Normal Concentration Medical Decision Making ED Course and Treatment: 11/07/16 01:42 Impression: 61 year old female complaining of an allergic reaction after eating veal parmesan 3 hours prior to arrival. Differential Diagnosis included but are not limited to: allergic reaction vs. urticaria Plan: -- Benadryl -- Prednisone - Reassess and disposition Progress Notes: 11/07/16 02:34 On reevaluation the patient feels better and is in no acute distress. I have discussed the results and plan with the patient, who expresses understanding. Patient given the opportunity to ask question, all questions were answered and there is agreement with the plan to discharge the patient home. Patient is stable for discharge. Patient was instructed to follow up with physician/clinic in 1-2 days or return if symptoms persist/worsen or new concerning symptoms arise. - Medication Orders Current Medication Orders: Discontinued Medications Diphenhydramine HCl (Benadryl) 50 mg PO ONCE STA Stop: 11/07/16 01:52 Last Admin: 11/07/16 02:05 Dose: 50 mg Prednisone (Prednisone Tab) 60 mg PO ONCE STA Stop: 11/07/16 01:52 Last Admin: 11/07/16 02:22 Dose: Not Given Non-Admin Reason: Patient Refused - Scribe Statement The provider has reviewed the documentation as recorded by the Scribcara Echeverria All medical record entries made by the Scribe were at my direction and personally dictated by me. I have reviewed the chart and agree that the record accurately reflects my personal performance of the history, physical exam, medical decision making, and the department course for this patient. I have also personally directed, reviewed, and agree with the discharge instructions and disposition. Disposition/Present on Arrival - Present on Arrival Any Indicators Present on Arrival: No History of DVT/PE: No History of Uncontrolled Diabetes: No Urinary Catheter: No History of Decub. Ulcer: No History Surgical Site Infection Following: None - Disposition Have Diagnosis and Disposition been Completed?: Yes Diagnosis: Allergic reaction Disposition: HOME/ ROUTINE Disposition Time: 02:34 Patient Plan: Discharge Patient Problems: Current Active Problems Problem Status Onset Allergic reaction Acute Condition: GOOD Discharge Instructions (ExitCare): Urticaria (ED), Food Allergy (ED) Additional Instructions: Take medication as prescribed/follow up with your doctor this week Prescriptions: DiphenhydrAMINE [Benadryl] 50 mg PO Q6 PRN #24 cap PRN Reason: Itching / Pruritus Forms: [employer] (Nepali)
== END 2016-11-07 03:00 | disposition home or self-care (01) ==
LOC: ED 01:08
DX: T78.1XXA Other adverse food reactions, not elsewhere classified, initial encounter (principal); X58.XXXA Exposure to other specified factors, initial encounter

== ENCOUNTER 2016-11-21 23:36 | Emergency (ER) | payer OTHER ==
[2016-11-21 23:37] VITALS: BMI 38.4
[2016-11-22 00:03] VITALS: TEMP 98.2
--- NOTE | 2016-11-22 00:04 | ED PDOC ---
Arrival/HPI - General Chief Complaint: Groin Pain Time Seen by Provider: 11/21/16 23:53 Historian: Patient - History of Present Illness Narrative History of Present Illness (Text): 11/22/16 00:05 Antonietta Abreu is a 61 year old female, whose past medical history includes COPD, asthma, anxiety and seizure, presents to the emergency department complaining of right groin pain s/p cardiac catheterization 3 days ago at [facility], [place]. Patient reports of pain at the cardiac catheterization insertion site. Contrary to initial triage, patient is not complaining of chest pain. Patient is requesting for ativan for anxiety symptoms. Denies suicidal or homicidal ideations. Denies any fever, chills, headache, dizziness, shortness of breath, nausea, vomiting, diarrhea, urinary symptoms, or any other complaints at this time. Time/Duration: Other (3 days ) Symptom Onset: Sudden Activities at Onset: Light Context: Home Past Medical History - Provider Review Nursing Documentation Reviewed: Yes - Infectious Disease Hx of Infectious Diseases: None - Tetanus Immunization Tetanus Immunization: Up to Date - Past Medical History Past Medical History: Non-Contributing - Cardiac Hx Congestive Heart Failure: Yes Hx Hypertension: Yes Hx Peripheral Edema: Yes - Pulmonary Hx Asthma: Yes Hx Bronchitis: Yes Hx Pulmonary Embolism: Yes - Neurological Hx Migraine: Yes Hx Seizures: Yes - HEENT Hx HEENT Disorder: No - Renal Hx Renal Disorder: No - Hematological/Oncological Hx Anemia: Yes - Integumentary Hx Dermatological Disorder: No - Musculoskeletal/Rheumatological Hx Arthritis: Yes - Gastrointestinal Hx Crohn's Disease: Yes Hx Gall Bladder Disease: Yes Hx Gastritis: Yes Hx Gastrointestinal Ulcer: Yes - Genitourinary/Gynecological Hx Genitourinary Disorders: No Hx Sexually Transmitted Diseases: No - Psychiatric Hx Anxiety: Yes Hx Depression: Yes Hx Substance Use: No - Past Surgical History Past Surgical History: Non-Contributing - Surgical History Hx Cholecystectomy: Yes - Anesthesia Hx Anesthesia: Yes Hx Anesthesia Reactions: No Hx Malignant Hyperthermia: No - Suicidal Assessment Feels Threatened In Home Enviroment: No Family/Social History - Physician Review Nursing Documentation Reviewed: Yes Family/Social History: No Known Family HX Smoking Status: Former Smoker Hx Alcohol Use: No Hx Substance Use: No Substance used: PAIN MEDICATION Hx Substance Use Treatment: No Allergies/Home Meds Allergies/Adverse Reactions: Allergies benzethonium chloride Allergy (Intermediate, Verified 11/03/16 08:09) URTICARIA benzocaine Allergy (Unknown, Verified 11/03/16 08:09) ITCHING broccoli Allergy (Unknown, Verified 11/03/16 08:09) ITCHING ketorolac tromethamine [From Toradol] Allergy (Unknown, Verified 11/03/16 08:09) ANAPHYLAXIS lidocaine Allergy (Unknown, Verified 11/03/16 08:09) ITCHING nitroglycerin Allergy (Unknown, Verified 11/03/16 08:09) URTICARIA pineapple Allergy (Unknown, Verified 11/03/16 08:09) ITCHING trazodone Allergy (Unknown, Verified 11/03/16 08:09) "heart flutters", swelling haloperidol [From Haldol] Allergy (Verified 11/03/16 08:09) VOMITING haloperidol lactate [From Haldol] Allergy (Verified 11/03/16 08:09) VOMITING oxycodone Allergy (Verified 10/29/16 01:04) SHORTNESS OF BREATH Unknown reaction, patient refused to answer. ziprasidone HCl [From Geodon] Allergy (Verified 10/29/16 01:04) SHORTNESS OF BREATH palpitations ziprasidone mesylate [From Geodon] Allergy (Verified 10/29/16 01:04) SHORTNESS OF BREATH aspirin Adverse Reaction (Unknown, Verified 10/29/16 01:04) "heart flutters", swelling Lanacane Allergy (Uncoded 10/29/16 01:04) SHORTNESS OF BREATH Unknown reaction, patient refused to answer. Steroids Allergy (Uncoded 10/29/16 01:04) SHORTNESS OF BREATH Unknown reaction, patient refused to answer. steroids Allergy (Uncoded 10/29/16 01:04) "heart flutters", swelling Home Medications: Home Meds Medication Instructions Recorded Confirmed Albuterol HFA [Ventolin HFA 90 2 puff IH TID 03/30/16 11/03/16 mcg/actuation (8 g)] LORazepam [Ativan] 2 mg PO BID 03/30/16 11/03/16 DiphenhydrAMINE [Benadryl] 25 mg PO Q4H 09/11/16 11/03/16 Enoxaparin [Lovenox] 80 mg SQ BID 09/11/16 11/03/16 Esomeprazole Magnesium [Nexium] 40 mg PO DAILY 09/11/16 11/03/16 Physical Exam - Physical Exam Narrative Physical Exam (Text): Constitutional: Normal. absent: Fatigue, Weight Change, Fevers Eyes: Normal ENT: Normal Respiratory: Normal absent: SOB, Cough, Sputum Cardiovascular: Normal absent: Chest pain, Palpitations, Syncope Gastrointestinal:Normal absent: Abdominal pain, Diarrhea, Nausea, Vomiting Genitourinary: Normal. absent: Dysuria, Frequency, Hematuria Musculoskeletal: Present: right groin pain absent: Arthralgias, Back Pain, Neck Pain Skin: Normal Neurological: Normal absent: Focal Weakness Endocrine: Normal Hemo/Lymphatic: Normal Psychiatric: Anxiety - Physical exam Patient appears age appropriate, speaking full sentences without difficulty. - Systems Exam Head: Present: Atraumatic, Normocephalic Pupils: Present: PERRL Extraocular Muscles: Present: EOMI Conjunctiva: Present: Normal Mouth: Present: Moist Mucous Membranes Neck: Present: Normal Range of Motion. No: MIDLINE TENDERNESS, Paraspinal Tenderness Respiratory/Chest: Present: Clear to Auscultation, Good Air Exchange. No: Respiratory Distress, Accessory Muscle Use, Tachypnic Cardiovascular: Present: Regular Rate and Rhythm, Normal S1, S2, Peripheral Pulses Present. No: Murmurs Abdomen: Present: Normal Bowel Sounds, No: Tenderness, Peritoneal Signs, Rebound, Guarding, Distention Back: Present: Normal Inspection. No: Midline Tenderness, Paraspinal Tenderness Upper Extremity: Present: Normal Inspection. No: Cyanosis, Edema Lower Extremity: Present: +ve pulse No: Edema, effusion, thrill, bruit, fluctuance Neurological: Present: GCS=15, Speech Normal, cranial nerves II through XII fully intact with no cerebellar abnormality, neuro-sensory fully intact. No focal neurological deficits. Skin: Present: Warm, Dry, Normal Color. No: Rashes Lymphatic: Present: OX3, NI, NC Psychiatric: Present: Alert, Oriented x 3, Normal Insight, Normal Concentration Vital Signs Reviewed: Yes Vital Signs Temp Pulse Resp BP Pulse Ox 11/22/16 00:02 98.2 F 75 18 142/74 97 Temperature: Afebrile Blood Pressure: Normal Pulse: Regular Respiratory Rate: Normal Appearance: Positive for: Well-Appearing, Non-Toxic, Comfortable Pain Distress: None Mental Status: Positive for: Alert and Oriented X 3 Medical Decision Making ED Course and Treatment: 11/22/16 00:12 Impression: A 61 year old female who presents to the emergency department complaining of right groin pain s/p recent cardiac catheterization. On exam, there are +ve pulses, no thrill or bruit, no effusion, and no fluctuance at the catheterization insertion site. Plan: -- Ativan -- US duplex lower extremity. -- Reassess and disposition Progress Notes: 11/22/16 01:03 Discussed with US tech, no pseudoaneurysm. 11/22/16 01:26 pt in no distress and denies complaints at this time states she feels comfortable being dc'd home instructed to f/u with her outpatient internet database specialist Pt states she understands to return to the ER right away for new or worsening symptoms or for inability to f/u with PMD or specialist as instructed. Patient states that she fully agrees with and understands discharge instructions. States that she agrees with the plan and disposition. Verbalized and repeated discharge instructions and plan. I have given the patient opportunity to ask any additional questions. - RAD Interpretation Radiology Orders: 11/21/16 23:54 DUPLEX LOWER EXT ART RT LMTD [US] Stat - Medication Orders Current Medication Orders: Discontinued Medications Lorazepam (Ativan) 2 mg PO ONCE ONE PRN Reason: Protocol Stop: 11/21/16 23:55 Last Admin: 11/22/16 00:15 Dose: 2 mg - Scribe Statement The provider has reviewed the documentation as recorded by the Barber Peña Provider Attestation: All medical record entries made by the Barber were at my direction and personally dictated by me. I have reviewed the chart and agree that the record accurately reflects my personal performance of the history, physical exam, medical decision making, and the department course for this patient. I have also personally directed, reviewed, and agree with the discharge instructions and disposition. Disposition/Present on Arrival - Present on Arrival Any Indicators Present on Arrival: No History of DVT/PE: No History of Uncontrolled Diabetes: No Urinary Catheter: No History of Decub. Ulcer: No History Surgical Site Infection Following: None - Disposition Have Diagnosis and Disposition been Completed?: Yes Diagnosis: Groin pain Disposition: HOME/ ROUTINE Disposition Time: 01:27 Patient Plan: Discharge Condition: GOOD Discharge Instructions (ExitCare): Groin Pain (ED) Additional Instructions: PLEASE RETURN TO THE EMERGENCY DEPARTMENT FOR NEW OR WORSENING SYMPTOMS. RETURN RIGHT AWAY IF YOU CANNOT FOLLOW UP WITH YOUR PRIMARY CARE DOCTOR, CLINIC, OR SPECIALIST IN 1-2 DAYS. Forms: [employer] (Icelandic)
[2016-11-22 01:38] VITALS: PULSE 77; RESP 20; O2SAT 96
[2016-11-22 01:57] VITALS: BP 138/70
--- NOTE | 2016-11-22 08:06 | US ---
PROCEDURE: Duplex arterial ultrasound of the right groin. HISTORY: Recent cardiac catheterization. Pain and pulsatile mass in the right groin. Evaluate for pseudoaneurysm or fistula. PHYSICIAN(S): Bc Watters MD. FINDINGS: The right common femoral artery is patent with a normal triphasic waveform. No sonographic evidence of a pseudoaneurysm or AV fistula is seen. The right superficial femoral artery and profunda femoral artery are patent proximally. The visualized venous segments the right groin are patent and compressible. IMPRESSION: 1. No sonographic evidence for pseudoaneurysm or AV fistula in the right groin.
== END 2016-11-22 01:56 | disposition home or self-care (01) ==
LOC: ED 23:36
DX: R10.30 Lower abdominal pain, unspecified (principal); F17.210 Nicotine dependence, cigarettes, uncomplicated; I10 Essential (primary) hypertension

== ENCOUNTER 2016-11-24 13:11 | Emergency (ER) | payer OTHER ==
[2016-11-24 13:12] VITALS: BMI 38.4
--- NOTE | 2016-11-24 13:39 | ED PDOC ---
Arrival/HPI - General Chief Complaint: Seizure Time Seen by Provider: 11/24/16 13:13 Historian: Patient - History of Present Illness Narrative History of Present Illness (Text): 11/24/16 13:34 A 61 year old female, well known to the hospital, whose past medical history includes, anxiety and seizures, presents to the Emergency department after having a reported seizure at home. The patient requests to have her dilantin level checked. At this time, patient denies any complaints. The patient denies fevers, chills, headache, chest pain, shortness of breath, cough, abdominal pain , nausea, vomiting, diarrhea, or any other complaint. Time/Duration: 1 hour Symptom Onset: Sudden Symptom Course: Unchanged Activities at Onset: Rest, Light Context: Home Past Medical History - Provider Review Nursing Documentation Reviewed: Yes - Infectious Disease Hx of Infectious Diseases: None - Tetanus Immunization Tetanus Immunization: Up to Date - Past Medical History Past Medical History: Non-Contributing - Cardiac Hx Congestive Heart Failure: Yes Hx Hypertension: Yes Hx Peripheral Edema: Yes - Pulmonary Hx Asthma: Yes Hx Bronchitis: Yes Hx Pulmonary Embolism: Yes - Neurological Hx Migraine: Yes Hx Seizures: Yes - HEENT Hx HEENT Disorder: No - Renal Hx Renal Disorder: No - Hematological/Oncological Hx Anemia: Yes - Integumentary Hx Dermatological Disorder: No - Musculoskeletal/Rheumatological Hx Arthritis: Yes - Gastrointestinal Hx Crohn's Disease: Yes Hx Gall Bladder Disease: Yes Hx Gastritis: Yes Hx Gastrointestinal Ulcer: Yes - Genitourinary/Gynecological Hx Genitourinary Disorders: No Hx Sexually Transmitted Diseases: No - Psychiatric Hx Anxiety: Yes Hx Depression: Yes Hx Substance Use: No - Past Surgical History Past Surgical History: Non-Contributing - Surgical History Hx Cholecystectomy: Yes - Anesthesia Hx Anesthesia: Yes Hx Anesthesia Reactions: No Hx Malignant Hyperthermia: No - Suicidal Assessment Feels Threatened In Home Enviroment: No Family/Social History - Physician Review Nursing Documentation Reviewed: Yes Family/Social History: No Known Family HX Smoking Status: Former Smoker Hx Alcohol Use: No Hx Substance Use: No Substance used: PAIN MEDICATION Hx Substance Use Treatment: No Allergies/Home Meds Allergies/Adverse Reactions: Allergies benzethonium chloride Allergy (Intermediate, Verified 11/03/16 08:09) URTICARIA benzocaine Allergy (Unknown, Verified 11/03/16 08:09) ITCHING broccoli Allergy (Unknown, Verified 11/03/16 08:09) ITCHING ketorolac tromethamine [From Toradol] Allergy (Unknown, Verified 11/03/16 08:09) ANAPHYLAXIS lidocaine Allergy (Unknown, Verified 11/03/16 08:09) ITCHING nitroglycerin Allergy (Unknown, Verified 11/03/16 08:09) URTICARIA pineapple Allergy (Unknown, Verified 11/03/16 08:09) ITCHING trazodone Allergy (Unknown, Verified 11/03/16 08:09) "heart flutters", swelling haloperidol [From Haldol] Allergy (Verified 11/03/16 08:09) VOMITING haloperidol lactate [From Haldol] Allergy (Verified 11/03/16 08:09) VOMITING oxycodone Allergy (Verified 10/29/16 01:04) SHORTNESS OF BREATH Unknown reaction, patient refused to answer. ziprasidone HCl [From Geodon] Allergy (Verified 10/29/16 01:04) SHORTNESS OF BREATH palpitations ziprasidone mesylate [From Geodon] Allergy (Verified 10/29/16 01:04) SHORTNESS OF BREATH aspirin Adverse Reaction (Unknown, Verified 10/29/16 01:04) "heart flutters", swelling Lanacane Allergy (Uncoded 10/29/16 01:04) SHORTNESS OF BREATH Unknown reaction, patient refused to answer. Steroids Allergy (Uncoded 10/29/16 01:04) SHORTNESS OF BREATH Unknown reaction, patient refused to answer. steroids Allergy (Uncoded 10/29/16 01:04) "heart flutters", swelling Home Medications: Home Meds Medication Instructions Recorded Confirmed Albuterol HFA [Ventolin HFA 90 2 puff IH TID 03/30/16 11/24/16 mcg/actuation (8 g)] LORazepam [Ativan] 2 mg PO BID 03/30/16 11/24/16 DiphenhydrAMINE [Benadryl] 25 mg PO Q4H 09/11/16 11/24/16 Enoxaparin [Lovenox] 80 mg SQ BID 09/11/16 11/24/16 Esomeprazole Magnesium [Nexium] 40 mg PO DAILY 09/11/16 11/24/16 Review of Systems - Physician Review All systems were reviewed & negative as marked: Yes - Review of Systems Constitutional: absent: Fevers, Night Sweats Respiratory: absent: SOB, Cough Cardiovascular: absent: Chest Pain Gastrointestinal: absent: Abdominal Pain, Diarrhea, Nausea, Vomiting Neurological: Seizure. absent: Headache Physical Exam Vital Signs Temp Pulse Resp BP Pulse Ox 11/24/16 16:05 98 F 75 20 125/71 98 11/24/16 13:13 98.6 F 83 20 142/78 98 11/24/16 13:12 98 F 126/82 Temperature: Afebrile Blood Pressure: Normal Pulse: Regular Respiratory Rate: Normal Appearance: Positive for: Well-Appearing, Non-Toxic, Comfortable Pain Distress: None Mental Status: Positive for: Alert and Oriented X 3 Medical Decision Making ED Course and Treatment: 11/24/16 13:39 Impression: A 61 year old female with a reported seizure episode at home 1 hour prior to arrival. Plan: -- Labs -- Reassess and disposition Prior Visits: Notes and results from previous visits were reviewed. Progress Notes: 11/24/16 14:58: Patient comfortable. In no acute distress. 11/24/16 17:01 pt staets needs refill of dilantin. due for her next dose at this time. neuro intact. stable for dc 11/24/16 17:02 - Lab Interpretations Lab Results: 11/24/16 14:10 11/24/16 15:50 Lab Results 11/24/16 15:50: Phenytoin 8 L 11/24/16 15:50: Sodium 140, Potassium 3.3 L, Chloride 106, Carbon Dioxide 25, Anion Gap 12, BUN 16, Creatinine 0.7, Est GFR ( Amer) > 60, Est GFR (Non- Af Amer) > 60, Random Glucose 151 H, Calcium 8.6, Total Bilirubin 0.3, AST 50 H , ALT 66 H, Alkaline Phosphatase 134 H, Total Protein 6.7, Albumin 3.8, Globulin 2.9, Albumin/Globulin Ratio 1.3 11/24/16 14:10: WBC 5.2 D, RBC 3.77, Hgb 12.3, Hct 37.1, MCV 98.4, MCH 32.6, MCHC 33.2, RDW 14.5, Plt Count 136, MPV 11.0, Gran % 70.7 H, Lymph % (Auto) 18.8 L, Moca % (Auto) 8.6 H, Eos % (Auto) 1.7, Baso % (Auto) 0.2, Gran # 3.68, Lymph # 1.0 L, Moca # 0.5, Eos # 0.1, Baso # 0.01 I have reviewed the lab results: Yes - Medication Orders Current Medication Orders: Discontinued Medications Phenytoin (Dilantin) 100 mg PO STAT STA Stop: 11/24/16 16:43 Last Admin: 11/24/16 16:55 Dose: 100 mg Potassium Chloride (K-Dur 20 Meq Er Tab) 40 meq PO STAT STA Stop: 11/24/16 16:28 Last Admin: 11/24/16 16:54 Dose: 40 meq - Scribe Statement The provider has reviewed the documentation as recorded by the Mattieibcara Ahumada Provider Mattieibe Attestation: All medical record entries made by the Scribe were at my direction and personally dictated by me. I have reviewed the chart and agree that the record accurately reflects my personal performance of the history, physical exam, medical decision making, and the department course for this patient. I have also personally directed, reviewed, and agree with the discharge instructions and disposition. Disposition/Present on Arrival - Present on Arrival Any Indicators Present on Arrival: No History of DVT/PE: No History of Uncontrolled Diabetes: No Urinary Catheter: No History of Decub. Ulcer: No History Surgical Site Infection Following: None - Disposition Have Diagnosis and Disposition been Completed?: Yes Diagnosis: Seizure Disposition: HOME/ ROUTINE Disposition Time: 05:00 Patient Problems: Current Active Problems Problem Status Onset Seizure Acute Condition: STABLE Discharge Instructions (ExitCare): Recurrent Seizures in Adults (ED) Additional Instructions: pleaee follow up with specialist. return to er with wrosening symptoms or concerns. Prescriptions: Phenytoin Sodium Extended 100 mg PO QID #28 capsule Referrals: Shay Lockhart MD [Staff Provider] - Follow up with primary Maynor Lockhart MD [Staff Provider] - Follow up with primary Forms: [employer] (Kazakh)
[2016-11-24 14:20] LABS: BASO % 0.2 % (0.0-3.0); EOS # 0.1 (0.0-0.7); EOS % 1.7 % (1.5-5.0); GRAN # 3.68 (1.4-6.5); GRAN % 70.7 % (50.0-68.0); HEMOGLOBIN 12.3 g/dL (12.0-16.0); LYMPH % 18.8 % (22.0-35.0); MEAN CELL VOLUME 98.4 fl (80.0-105.0); MEAN CORPUSCULAR HEMOGLOBIN 32.6 pg (25.0-35.0); MEAN CORPUSCULAR HGB CONC 33.2 g/dl (31.0-37.0); MONO # 0.5 (0.1-0.6); MONO % 8.6 % (1.0-6.0); PLATELET COUNT 136 10^3/uL (120.0-450.0); RBC 3.77 10^6/uL (3.5-6.1); RED CELL DISTRIBUTION WIDTH 14.5 % (11.5-14.5); WHITE BLOOD COUNT 5.2 10^3/ul (4.5-11.0)
[2016-11-24 14:21] LABS: BASO # 0.01 K/mm3 (0.0-2.0)
[2016-11-24 16:18] LABS: ALB/GLOB RATIO 1.3 (1.1-1.8); ALBUMIN 3.8 g/dL (3.0-4.8); ALT/SGPT 66 U/L (7-56); AST/SGOT 50 U/L (15-39); BLOOD UREA NITROGEN 16 mg/dL (7-21); CALCIUM 8.6 mg/dL (8.4-10.5); GFR AFRICAN-AMERICAN > 60; GFR NON-AFRICAN AMERICAN > 60
[2016-11-24] MEDS ORDERED: Potassium Chloride 20 mEq ER Tab PO STA (16:27)
[2016-11-24] MEDS ORDERED: Phenytoin 100 mg/4 ml Oral Susp UD PO STA (16:42)
[2016-11-24 18:01] VITALS: BP 127/75; PULSE 85; RESP 19; TEMP 98.2; O2SAT 99
== END 2016-11-24 18:02 | disposition home or self-care (01) ==
LOC: ED 13:11
DX: R56.9 Unspecified convulsions (principal); I10 Essential (primary) hypertension; Z87.891 Personal history of nicotine dependence

== ENCOUNTER 2016-12-18 04:37 | Emergency (ER) | payer OTHER ==
[2016-12-18 04:38] VITALS: BMI 38.4
[2016-12-18 05:03] VITALS: BP 115/62; PULSE 79; RESP 18; TEMP 98.1; O2SAT 98
--- NOTE | 2016-12-18 05:21 | ED PDOC ---
Arrival/HPI - General Chief Complaint: Seizure Time Seen by Provider: 12/18/16 04:49 Historian: Patient - History of Present Illness Narrative History of Present Illness (Text): 12/18/16 05:16 Justina Abreu is a 61 year old female, with a history of seizure disorder, DVT , and anxiety, presents to the emergency department following brief unwitnessed seizure episode at home earlier today. Patient thinks she may have missed a couple of doses of Dilantin medication, and wants her level checked. Denies fever, chills, headache, dizziness, chest pain, shortness of breath, abdominal pain, nausea, vomiting, diarrhea, or any other complaints at this time. Symptom Onset: Sudden Symptom Course: Improving Activities at Onset: Light Past Medical History - Provider Review Nursing Documentation Reviewed: Yes - Infectious Disease Hx of Infectious Diseases: None - Tetanus Immunization Tetanus Immunization: Up to Date - Reproductive Menopause: Yes - Past Medical History Past Medical History: Non-Contributing - Cardiac Hx Congestive Heart Failure: Yes Hx Hypertension: Yes Hx Peripheral Edema: Yes - Pulmonary Hx Asthma: Yes Hx Bronchitis: Yes Hx Pulmonary Embolism: Yes - Neurological Hx Seizures: Yes - HEENT Hx HEENT Disorder: No - Renal Hx Renal Disorder: No - Endocrine/Metabolic Hx Endocrine Disorders: No - Hematological/Oncological Hx Anemia: Yes Other/Comment: dvt elicia legs - Integumentary Hx Dermatological Disorder: No - Musculoskeletal/Rheumatological Hx Arthritis: Yes - Gastrointestinal Hx Gastritis: Yes Hx Gastrointestinal Ulcer: Yes - Genitourinary/Gynecological Hx Genitourinary Disorders: No Hx Sexually Transmitted Diseases: No - Psychiatric Hx Anxiety: Yes Hx Depression: Yes Hx Substance Use: No - Past Surgical History Past Surgical History: Non-Contributing - Surgical History Hx Cholecystectomy: Yes - Anesthesia Hx Anesthesia: Yes Hx Anesthesia Reactions: No Hx Malignant Hyperthermia: No - Suicidal Assessment Feels Threatened In Home Enviroment: No Family/Social History - Physician Review Nursing Documentation Reviewed: Yes Family/Social History: No Known Family HX Smoking Status: Former Smoker Hx Alcohol Use: No Hx Substance Use: No Substance used: PAIN MEDICATION Hx Substance Use Treatment: No Allergies/Home Meds Allergies/Adverse Reactions: Allergies benzethonium chloride Allergy (Intermediate, Verified 12/18/16 05:05) URTICARIA benzocaine Allergy (Unknown, Verified 12/18/16 05:05) ITCHING broccoli Allergy (Unknown, Verified 12/18/16 05:05) ITCHING ketorolac tromethamine [From Toradol] Allergy (Unknown, Verified 12/18/16 05:05) ANAPHYLAXIS lidocaine Allergy (Unknown, Verified 12/18/16 05:05) ITCHING nitroglycerin Allergy (Unknown, Verified 12/18/16 05:05) URTICARIA pineapple Allergy (Unknown, Verified 12/18/16 05:05) ITCHING trazodone Allergy (Unknown, Verified 12/18/16 05:05) "heart flutters", swelling haloperidol [From Haldol] Allergy (Verified 12/18/16 05:05) VOMITING haloperidol lactate [From Haldol] Allergy (Verified 12/18/16 05:05) VOMITING oxycodone Allergy (Verified 12/18/16 05:05) SHORTNESS OF BREATH Unknown reaction, patient refused to answer. ziprasidone HCl [From Geodon] Allergy (Verified 12/18/16 05:05) SHORTNESS OF BREATH palpitations ziprasidone mesylate [From Geodon] Allergy (Verified 12/18/16 05:05) SHORTNESS OF BREATH aspirin Adverse Reaction (Unknown, Verified 12/18/16 05:05) "heart flutters", swelling Lanacane Allergy (Uncoded 10/29/16 01:04) SHORTNESS OF BREATH Unknown reaction, patient refused to answer. Steroids Allergy (Uncoded 10/29/16 01:04) SHORTNESS OF BREATH Unknown reaction, patient refused to answer. steroids Allergy (Uncoded 10/29/16 01:04) "heart flutters", swelling Home Medications: Home Meds Medication Instructions Recorded Confirmed Albuterol HFA [Ventolin HFA 90 2 puff IH TID 03/30/16 12/18/16 mcg/actuation (8 g)] LORazepam [Ativan] 2 mg PO TID 03/30/16 12/18/16 Enoxaparin [Lovenox] 80 mg SQ BID 09/11/16 12/18/16 Esomeprazole Magnesium [Nexium] 40 mg PO DAILY 09/11/16 12/18/16 HYDROmorphone [Dilaudid] 2 mg PO QID 12/18/16 12/18/16 Review of Systems - Physician Review All systems were reviewed & negative as marked: Yes - Review of Systems Constitutional: Normal. absent: Fatigue, Fevers Respiratory: Normal. absent: SOB, Cough, Sputum Cardiovascular: Normal. absent: Chest Pain, Palpitations Gastrointestinal: Normal. absent: Abdominal Pain, Diarrhea, Nausea, Vomiting Neurological: Seizure. absent: Headache, Dizziness Physical Exam Vital Signs Reviewed: Yes Vital Signs Temp Pulse Resp BP Pulse Ox 12/18/16 04:57 98.1 F 79 18 115/62 98 Temperature: Afebrile Blood Pressure: Normal Pulse: Regular Respiratory Rate: Normal Appearance: Positive for: Well-Appearing, Non-Toxic, Comfortable Pain Distress: None Mental Status: Positive for: Alert and Oriented X 3 - Systems Exam Head: Present: Atraumatic, Normocephalic Pupils: Present: PERRL Conjunctiva: Present: Normal Mouth: Present: Moist Mucous Membranes Neck: Present: Normal Range of Motion. No: MIDLINE TENDERNESS, Paraspinal Tenderness Respiratory/Chest: Present: Clear to Auscultation, Good Air Exchange. No: Respiratory Distress, Accessory Muscle Use Cardiovascular: Present: Regular Rate and Rhythm, Normal S1, S2. No: Murmurs Abdomen: Present: Normal Bowel Sounds. No: Tenderness, Distention, Peritoneal Signs Upper Extremity: Present: Normal Inspection. No: Cyanosis, Edema Lower Extremity: Present: Normal Inspection. No: Edema Neurological: Present: GCS=15, CN II-XII Intact, Speech Normal Skin: Present: Warm, Dry, Normal Color. No: Rashes Psychiatric: Present: Alert, Oriented x 3, Normal Insight, Normal Concentration Medical Decision Making ED Course and Treatment: Impression: A 61 year old female who presents to the emergency department for evaluation following unwitnessed seizure episode at home. Patient wants her Dilantin levels to be check. Plan: -- Dilantin level -- Reassess and disposition Progress Notes: 12/18/16 06:00 Pt. left ER unannounced to ER staff. - Scribe Statement The provider has reviewed the documentation as recorded by the Barber Peña Provider Attestation: All medical record entries made by the Mattieibcara were at my direction and personally dictated by me. I have reviewed the chart and agree that the record accurately reflects my personal performance of the history, physical exam, medical decision making, and the department course for this patient. I have also personally directed, reviewed, and agree with the discharge instructions and disposition. Disposition/Present on Arrival - Present on Arrival Any Indicators Present on Arrival: No History of DVT/PE: No History of Uncontrolled Diabetes: No Urinary Catheter: No History of Decub. Ulcer: No History Surgical Site Infection Following: None - Disposition Have Diagnosis and Disposition been Completed?: Yes Diagnosis: Seizure disorder Disposition: ELOPEMENT - ER ONLY Disposition Time: 06:00 Condition: STABLE Forms: [employer] (Bulgarian)
== END 2016-12-18 06:00 | disposition left against medical advice (07) ==
LOC: ED 04:37
DX: G40.909 Epilepsy, unspecified, not intractable, without status epilepticus (principal)

== ENCOUNTER 2016-12-18 06:36 | Emergency (ER) | payer OTHER ==
[2016-12-18 06:37] VITALS: BMI 38.4
--- NOTE | 2016-12-18 06:52 | ED PDOC ---
Arrival/HPI - General Time Seen by Provider: 12/18/16 06:48 - History of Present Illness Narrative History of Present Illness (Text): 12/18/16 06:48 Pt. to emergency department following elopement.Pt. had walked out of the emergency department earlier unannounced to the emergency staff.Pt. now returns stating she wants her Dilantin level checked as previously requested.She is concerned she may have another seizure. Past Medical History - Provider Review Nursing Documentation Reviewed: Yes - Travel History Have you recently traveled outside [place] w/in the past 3 mons?: No - Infectious Disease Hx of Infectious Diseases: None - Tetanus Immunization Tetanus Immunization: Up to Date - Past Medical History Past Medical History: Non-Contributing - Cardiac Hx Congestive Heart Failure: Yes Hx Hypertension: Yes Hx Peripheral Edema: Yes - Pulmonary Hx Asthma: Yes Hx Bronchitis: Yes Hx Pulmonary Embolism: Yes - Neurological Hx Seizures: Yes - HEENT Hx HEENT Disorder: No - Renal Hx Renal Disorder: No - Endocrine/Metabolic Hx Endocrine Disorders: No - Hematological/Oncological Hx Anemia: Yes Other/Comment: dvt elicia legs - Integumentary Hx Dermatological Disorder: No - Musculoskeletal/Rheumatological Hx Arthritis: Yes - Gastrointestinal Hx Gastritis: Yes Hx Gastrointestinal Ulcer: Yes - Genitourinary/Gynecological Hx Genitourinary Disorders: No Hx Sexually Transmitted Diseases: No - Psychiatric Hx Anxiety: Yes Hx Depression: Yes Hx Substance Use: No - Past Surgical History Past Surgical History: Non-Contributing - Surgical History Hx Cholecystectomy: Yes - Anesthesia Hx Anesthesia: Yes Hx Anesthesia Reactions: No Hx Malignant Hyperthermia: No - Suicidal Assessment Feels Threatened In Home Enviroment: No Family/Social History - Physician Review Nursing Documentation Reviewed: Yes Family/Social History: Hypertension Smoking Status: Former Smoker Hx Alcohol Use: No Hx Substance Use: No Substance used: PAIN MEDICATION Hx Substance Use Treatment: No Allergies/Home Meds Allergies/Adverse Reactions: Allergies benzethonium chloride Allergy (Intermediate, Verified 12/18/16 05:05) URTICARIA benzocaine Allergy (Unknown, Verified 12/18/16 05:05) ITCHING broccoli Allergy (Unknown, Verified 12/18/16 05:05) ITCHING ketorolac tromethamine [From Toradol] Allergy (Unknown, Verified 12/18/16 05:05) ANAPHYLAXIS lidocaine Allergy (Unknown, Verified 12/18/16 05:05) ITCHING nitroglycerin Allergy (Unknown, Verified 12/18/16 05:05) URTICARIA pineapple Allergy (Unknown, Verified 12/18/16 05:05) ITCHING trazodone Allergy (Unknown, Verified 12/18/16 05:05) "heart flutters", swelling haloperidol [From Haldol] Allergy (Verified 12/18/16 05:05) VOMITING haloperidol lactate [From Haldol] Allergy (Verified 12/18/16 05:05) VOMITING oxycodone Allergy (Verified 12/18/16 05:05) SHORTNESS OF BREATH Unknown reaction, patient refused to answer. ziprasidone HCl [From Geodon] Allergy (Verified 12/18/16 05:05) SHORTNESS OF BREATH palpitations ziprasidone mesylate [From Geodon] Allergy (Verified 12/18/16 05:05) SHORTNESS OF BREATH aspirin Adverse Reaction (Unknown, Verified 12/18/16 05:05) "heart flutters", swelling Lanacane Allergy (Uncoded 10/29/16 01:04) SHORTNESS OF BREATH Unknown reaction, patient refused to answer. Steroids Allergy (Uncoded 10/29/16 01:04) SHORTNESS OF BREATH Unknown reaction, patient refused to answer. steroids Allergy (Uncoded 10/29/16 01:04) "heart flutters", swelling Home Medications: Home Meds Medication Instructions Recorded Confirmed Albuterol HFA [Ventolin HFA 90 2 puff IH TID 03/30/16 12/18/16 mcg/actuation (8 g)] LORazepam [Ativan] 2 mg PO TID 03/30/16 12/18/16 Enoxaparin [Lovenox] 80 mg SQ BID 09/11/16 12/18/16 Esomeprazole Magnesium [Nexium] 40 mg PO DAILY 09/11/16 12/18/16 HYDROmorphone [Dilaudid] 2 mg PO QID 12/18/16 12/18/16 Review of Systems - Review of Systems Constitutional: Normal Eyes: Normal ENT: Normal Respiratory: Normal Cardiovascular: Normal Gastrointestinal: Normal Genitourinary Female: Normal Musculoskeletal: Normal Skin: Normal Neurological: Normal Endocrine: Normal Hemo/Lymphatic: Normal Psychiatric: Normal Physical Exam Temperature: Afebrile Blood Pressure: Normal Pulse: Regular Respiratory Rate: Normal Appearance: Positive for: Well-Appearing, Non-Toxic, Comfortable Pain Distress: None Mental Status: Positive for: Alert and Oriented X 3 - Systems Exam Head: Present: Atraumatic, Normocephalic Pupils: Present: PERRL Extroacular Muscles: Present: EOMI Conjunctiva: Present: Normal Ears: Present: NORMAL TM Mouth: Present: Moist Mucous Membranes Neck: Present: Normal Range of Motion Respiratory/Chest: Present: Clear to Auscultation, Good Air Exchange. No: Respiratory Distress, Accessory Muscle Use Cardiovascular: Present: Regular Rate and Rhythm, Normal S1, S2. No: Murmurs Abdomen: Present: Normal Bowel Sounds. No: Tenderness, Distention, Peritoneal Signs Back: Present: Normal Inspection Upper Extremity: Present: Normal Inspection. No: Cyanosis, Edema Lower Extremity: Present: Normal Inspection. No: Edema Neurological: Present: GCS=15, CN II-XII Intact, Speech Normal, Motor Func Grossly Intact, Normal Sensory Function Skin: Present: Warm, Dry, Normal Color. No: Rashes Psychiatric: Present: Alert, Oriented x 3, Normal Insight, Normal Concentration Medical Decision Making - Transfer of Care Patient signed out to :Saira Anglin Pending Labs:: Pending Dilantin level/reassess/final disposition Disposition/Present on Arrival - Present on Arrival Any Indicators Present on Arrival: No History of DVT/PE: No History of Uncontrolled Diabetes: No Urinary Catheter: No History Surgical Site Infection Following: None - Disposition Have Diagnosis and Disposition been Completed?: No Diagnosis: Seizure disorder Disposition Time: 07:00 Patient Problems: Current Active Problems Problem Status Onset Seizure disorder Acute Condition: STABLE
[2016-12-18 07:30] VITALS: BP 151/88; PULSE 65; RESP 16; TEMP 98.9; O2SAT 100
[2016-12-18 07:32] LABS: HEMATOCRIT 36.4 % (36.0-48.0); MEAN CELL VOLUME 96.8 fl (80.0-105.0); MEAN CORPUSCULAR HEMOGLOBIN 32.2 pg (25.0-35.0); MEAN CORPUSCULAR HGB CONC 33.2 g/dl (31.0-37.0); MEAN PLATELET VOLUME 10.9 fl (7.0-11.0); RED CELL DISTRIBUTION WIDTH 14.4 % (11.5-14.5); WHITE BLOOD COUNT 3.9 10^3/ul (4.5-11.0)
[2016-12-18 08:12] LABS: BLOOD UREA NITROGEN 11 mg/dL (7-21); CALCIUM 8.5 mg/dL (8.4-10.5); CARBON DIOXIDE 24 mmol/L (21-33); CHLORIDE 108 mmol/L (98-107); GFR AFRICAN-AMERICAN > 60; GLUCOSE,RANDOM 94 mg/dL (70-110); POTASSIUM 4.1 mmol/L (3.6-5.0); SODIUM 140 mmol/L (132-148)
--- NOTE | 2016-12-18 08:38 | ED PDOC ---
Physical Exam Vital Signs Temp Pulse Resp BP Pulse Ox 12/18/16 07:26 98.9 F 65 16 151/88 H 100 Medical Decision Making ED Course and Treatment: 12/18/16 08:00 Patient has had no seizure since her visit to the emergency department over three hours. Patient is in no acute distress. I have discussed the results and plan with the patient, who expresses understanding. Patient given the opportunity to ask question, all questions were answered and there is agreement with the plan to discharge the patient home. She will continue to take her medications as prescribed. - Lab Interpretations Lab Results: 12/18/16 07:00 12/18/16 07:30 Lab Results 12/18/16 07:30: Phenytoin 10 12/18/16 07:30: Sodium 140, Potassium 4.1, Chloride 108 H, Carbon Dioxide 24, Anion Gap 12, BUN 11, Creatinine 0.6, Est GFR ( Amer) > 60, Est GFR (Non- Af Amer) > 60, Random Glucose 94, Calcium 8.5 12/18/16 07:00: WBC 3.9 L D, RBC 3.76, Hgb 12.1, Hct 36.4, MCV 96.8, MCH 32.2, MCHC 33.2, RDW 14.4, Plt Count 83 L, MPV 10.9 - Scribe Statement The provider has reviewed the documentation as recorded by the Scribe 12/18/2016 Annabel [place] Provider Scribe Attestation: All medical record entries made by the Scribe were at my direction and personally dictated by me. I have reviewed the chart and agree that the record accurately reflects my personal performance of the history, physical exam, medical decision making, and the department course for this patient. I have also personally directed, reviewed, and agree with the discharge instructions and disposition. Disposition/Present on Arrival - Present on Arrival Any Indicators Present on Arrival: No History of DVT/PE: No History of Uncontrolled Diabetes: No Urinary Catheter: No History of Decub. Ulcer: No History Surgical Site Infection Following: None - Disposition Have Diagnosis and Disposition been Completed?: Yes Diagnosis: Seizure disorder Disposition: HOME/ ROUTINE Disposition Time: 08:33 Patient Plan: Discharge Condition: GOOD Discharge Instructions (ExitCare): Epilepsy (ED) Additional Instructions: Ms Abreu, thank you for letting us take care of you today. Your provider was Dr. Anglin. You were treated for Seizure . The emergency medical care you received today was directed at your acute symptoms. If you were prescribed any medication, please fill it and take as directed. It may take several days for your symptoms to resolve. Return to the Emergency Department if your symptoms worsen, do not improve, or if you have any other problems. Please contact your doctor or call one of the physicians/clinics you have been referred to that are listed on the Patient Visit Information form that is included in your discharge packet. Bring any paperwork you were given at discharge with you along with any medications you are taking to your follow up visit. Our treatment cannot replace ongoing medical care by a primary care provider (PCP) outside of the emergency department. Thank you for allowing the [facility] team to be part of your care today. If you had an X-Ray or CT scan: A Radiologist will review the ED reading if any change in treatment is needed we will contact you. If you had a blood, urine, or wound culture: It will take several days for the results, if any change in treatment is needed we will contact you. If you had an STI test: It will take 48 hours for the results. Please call after 1 week if you have not heard back. Referrals: [facility] Renetta Kumar, [Non-Staff] - Follow up with primary Forms: WORK NOTE
== END 2016-12-18 08:36 | disposition home or self-care (01) ==
LOC: ED 06:36
DX: G40.909 Epilepsy, unspecified, not intractable, without status epilepticus (principal)

== ENCOUNTER 2016-12-19 21:58 | Emergency (ER) | payer OTHER ==
[2016-12-19 21:59] VITALS: BMI 38.4
[2016-12-19 22:18] VITALS: TEMP 98.3
--- NOTE | 2016-12-19 22:26 | ED PDOC ---
Arrival/HPI - General Chief Complaint: Chest Pain Time Seen by Provider: 12/19/16 22:12 Historian: Patient - History of Present Illness Narrative History of Present Illness (Text): 12/19/16 22:26 Justina Abreu is a 61 year old female, well known to the hospital, with a past medical history of COPD, asthma, anxiety, and seizures, who presents to the emergency department complaining of chest pain tonight. pt well known to emergency room for similar presentations. Patient denies any fever, chills, shortness of breath, nausea, vomiting, back pain, neck pain, headache, dizziness , or any other complaints. 12/20/16 01:57 Symptom Onset: Gradual Symptom Course: Unchanged Activities at Onset: Light Context: Home Past Medical History - Provider Review Nursing Documentation Reviewed: Yes - Infectious Disease Hx of Infectious Diseases: None - Tetanus Immunization Tetanus Immunization: Up to Date - Past Medical History Past Medical History: Non-Contributing - Cardiac Hx Congestive Heart Failure: Yes Hx Hypertension: Yes Hx Peripheral Edema: Yes - Pulmonary Hx Asthma: Yes Hx Bronchitis: Yes Hx Pulmonary Embolism: Yes - Neurological Hx Seizures: Yes - HEENT Hx HEENT Disorder: No - Renal Hx Renal Disorder: No - Endocrine/Metabolic Hx Endocrine Disorders: No - Hematological/Oncological Hx Anemia: Yes Other/Comment: dvt elicia legs - Integumentary Hx Dermatological Disorder: No - Musculoskeletal/Rheumatological Hx Arthritis: Yes - Gastrointestinal Hx Gastritis: Yes Hx Gastrointestinal Ulcer: Yes - Genitourinary/Gynecological Hx Genitourinary Disorders: No Hx Sexually Transmitted Diseases: No - Psychiatric Hx Anxiety: Yes Hx Depression: Yes Hx Substance Use: No - Past Surgical History Past Surgical History: Non-Contributing - Surgical History Hx Cholecystectomy: Yes - Anesthesia Hx Anesthesia: Yes Hx Anesthesia Reactions: No Hx Malignant Hyperthermia: No - Suicidal Assessment Feels Threatened In Home Enviroment: No Family/Social History - Physician Review Nursing Documentation Reviewed: Yes Family/Social History: Unknown Family HX Smoking Status: Former Smoker Hx Alcohol Use: No Hx Substance Use: No Substance used: PAIN MEDICATION Hx Substance Use Treatment: No Allergies/Home Meds Allergies/Adverse Reactions: Allergies benzethonium chloride Allergy (Intermediate, Verified 12/18/16 05:05) URTICARIA benzocaine Allergy (Unknown, Verified 12/18/16 05:05) ITCHING broccoli Allergy (Unknown, Verified 12/18/16 05:05) ITCHING ketorolac tromethamine [From Toradol] Allergy (Unknown, Verified 12/18/16 05:05) ANAPHYLAXIS lidocaine Allergy (Unknown, Verified 12/18/16 05:05) ITCHING nitroglycerin Allergy (Unknown, Verified 12/18/16 05:05) URTICARIA pineapple Allergy (Unknown, Verified 12/18/16 05:05) ITCHING trazodone Allergy (Unknown, Verified 12/18/16 05:05) "heart flutters", swelling haloperidol [From Haldol] Allergy (Verified 12/18/16 05:05) VOMITING haloperidol lactate [From Haldol] Allergy (Verified 12/18/16 05:05) VOMITING oxycodone Allergy (Verified 12/18/16 05:05) SHORTNESS OF BREATH Unknown reaction, patient refused to answer. ziprasidone HCl [From Geodon] Allergy (Verified 12/18/16 05:05) SHORTNESS OF BREATH palpitations ziprasidone mesylate [From Geodon] Allergy (Verified 12/18/16 05:05) SHORTNESS OF BREATH aspirin Adverse Reaction (Unknown, Verified 12/18/16 05:05) "heart flutters", swelling Lanacane Allergy (Uncoded 10/29/16 01:04) SHORTNESS OF BREATH Unknown reaction, patient refused to answer. Steroids Allergy (Uncoded 10/29/16 01:04) SHORTNESS OF BREATH Unknown reaction, patient refused to answer. steroids Allergy (Uncoded 10/29/16 01:04) "heart flutters", swelling Home Medications: Home Meds Medication Instructions Recorded Confirmed Albuterol HFA [Ventolin HFA 90 1 inh INH TID 12/18/16 12/18/16 mcg/actuation (8 g)] DiphenhydrAMINE [Benadryl] 25 mg PO PRN PRN 12/18/16 12/18/16 Enoxaparin [Lovenox] 80 mg SC DAILY 12/18/16 12/18/16 HYDROmorphone [Dilaudid] 2 mg PO QID 12/18/16 12/18/16 LORazepam [Ativan] 2 mg PO TID 12/18/16 12/18/16 Omeprazole Magnesium [Prilosec Otc] 40 mg PO DAILY 12/18/16 12/18/16 Phenytoin, Extended [Dilantin] 100 mg PO QID 12/18/16 12/18/16 amLODIPine [Norvasc] 10 mg PO BID 12/18/16 12/18/16 Review of Systems - Physician Review All systems were reviewed & negative as marked: Yes - Review of Systems Constitutional: Normal. absent: Fevers Eyes: Normal ENT: Normal Respiratory: Normal. absent: SOB, Cough Cardiovascular: Chest Pain Gastrointestinal: Normal. absent: Abdominal Pain, Diarrhea, Nausea, Vomiting Genitourinary Female: Normal. absent: Dysuria, Frequency, Hematuria, Urine Output Changes Musculoskeletal: Normal. absent: Back Pain, Neck Pain Skin: Normal. absent: Rash Neurological: Normal. absent: Headache, Dizziness Endocrine: Normal Hemo/Lymphatic: Normal Psychiatric: Normal Physical Exam Vital Signs Reviewed: Yes Vital Signs Temp Pulse Resp BP Pulse Ox 12/20/16 02:00 89 16 136/54 L 99 12/19/16 22:17 98.3 F 90 20 148/71 98 Temperature: Afebrile Blood Pressure: Normal Pulse: Regular Respiratory Rate: Normal Appearance: Positive for: Well-Appearing, Non-Toxic, Comfortable Pain Distress: None Mental Status: Positive for: Alert and Oriented X 3 - Systems Exam Head: Present: Atraumatic, Normocephalic Pupils: Present: PERRL Extroacular Muscles: Present: EOMI Conjunctiva: Present: Normal Mouth: Present: Moist Mucous Membranes Neck: Present: Normal Range of Motion Respiratory/Chest: Present: Clear to Auscultation, Good Air Exchange. No: Respiratory Distress, Accessory Muscle Use Cardiovascular: Present: Regular Rate and Rhythm, Normal S1, S2. No: Murmurs Abdomen: Present: Normal Bowel Sounds. No: Tenderness, Distention, Peritoneal Signs Back: Present: Normal Inspection Upper Extremity: Present: Normal Inspection. No: Cyanosis, Edema Lower Extremity: Present: Normal Inspection. No: Edema Neurological: Present: GCS=15, CN II-XII Intact, Speech Normal Skin: Present: Warm, Dry, Normal Color. No: Rashes Psychiatric: Present: Alert, Oriented x 3, Normal Insight, Normal Concentration Medical Decision Making ED Course and Treatment: 12/19/16 22:26 Impression: 61 year old female complaining of chest pain tonight. Plan: -- EKG -- CXR -- Labs, cardiac enzymes, BNP -- Urinalysis -- Reassess and disposition Prior Visits: Notes and results from previous visits were reviewed. On 12/18/2016, pt was seen in the Emergency department s/p seizure. Pt was d/c home. Progress Notes: Reviewed EKG, NSR at 97 bpm. Non-specific T wave changes. No interval changes from previous EKG on 10/29/2016. 12/19/16 23:41 Reviewed radiology, CXR shows no acute processes as per me 12/20/16 01:58 12/21/16 13:03 pt observed in er in nad, sleeping entire emergency department course. well known to er. atypical pain. no ekg changes, trop neg. stable for outpt magnement - Lab Interpretations Lab Results: 12/19/16 23:25 12/20/16 00:20 Lab Results 12/20/16 00:20: Sodium 143, Potassium 3.6, Chloride 107, Carbon Dioxide 29, Anion Gap 11, BUN 15, Creatinine 0.7, Est GFR ( Amer) > 60, Est GFR (Non- Af Amer) > 60, Random Glucose 87, Calcium 8.6, Magnesium 2.0, Total Bilirubin 0.3, AST 38 H, ALT 43, Alkaline Phosphatase 146 H, Lactate Dehydrogenase 876 H, Total Creatine Kinase 252 H, CK-MB (CK-2) 1.3, CK-MB (CK-2) % Cancelled, Troponin I < 0.01 D, NT-Pro-B Natriuret Pep 42.5, Total Protein 7.8, Albumin 4.2, Globulin 3.6, Albumin/Globulin Ratio 1.2 12/19/16 23:25: PT 11.3, INR 1.05, APTT 23.2 L 12/19/16 23:25: WBC 5.7 D, RBC 3.54, Hgb 11.7 L, Hct 34.3 L, MCV 96.9, MCH 33.1 , MCHC 34.1, RDW 14.9 H, Plt Count 138, MPV 10.8, Gran % 59.6, Lymph % (Auto) 29.1, Emmons % (Auto) 9.9 H, Eos % (Auto) 1.2 L, Baso % (Auto) 0.2, Gran # 3.42, Lymph # 1.7, Emmons # 0.6, Eos # 0.1, Baso # 0.01 I have reviewed the lab results: Yes - RAD Interpretation Radiology Orders: 12/19/16 22:28 CHEST PORTABLE [RAD] Stat Outside Plant Field Engineer: ED Physician - EKG Interpretation Interpreted by ED Physician: Yes Type: 12 lead EKG - Scribe Statement The provider has reviewed the documentation as recorded by the Scribe Alyson Echeverria All medical record entries made by the Scribe were at my direction and personally dictated by me. I have reviewed the chart and agree that the record accurately reflects my personal performance of the history, physical exam, medical decision making, and the department course for this patient. I have also personally directed, reviewed, and agree with the discharge instructions and disposition. Disposition/Present on Arrival - Present on Arrival Any Indicators Present on Arrival: No History of DVT/PE: No History of Uncontrolled Diabetes: No Urinary Catheter: No History of Decub. Ulcer: No History Surgical Site Infection Following: None - Disposition Have Diagnosis and Disposition been Completed?: Yes Diagnosis: Chest pain Disposition: HOME/ ROUTINE Disposition Time: 01:00 Condition: STABLE Discharge Instructions (ExitCare): Chest Pain (ED) Additional Instructions: please follow up with your doctor/specialist. return to emergency room with worsening symtpoms or concerns. Referrals: Jony Sy MD [Primary Care Provider] - Follow up with primary Anupam Subramanian MD [Staff Provider] - Follow up with primary Forms: [employer] (Divehi)
[2016-12-19 23:30] LABS: BASO # 0.01 K/mm3 (0.0-2.0); BASO % 0.2 % (0.0-3.0); EOS # 0.1 (0.0-0.7); EOS % 1.2 % (1.5-5.0); GRAN # 3.42 (1.4-6.5); GRAN % 59.6 % (50.0-68.0); HEMATOCRIT 34.3 % (36.0-48.0); LYMPH # 1.7 (1.2-3.4); LYMPH % 29.1 % (22.0-35.0); MEAN CELL VOLUME 96.9 fl (80.0-105.0); MEAN CORPUSCULAR HEMOGLOBIN 33.1 pg (25.0-35.0); MEAN CORPUSCULAR HGB CONC 34.1 g/dl (31.0-37.0); MEAN PLATELET VOLUME 10.8 fl (7.0-11.0); MONO # 0.6 (0.1-0.6); MONO % 9.9 % (1.0-6.0); RED CELL DISTRIBUTION WIDTH 14.9 % (11.5-14.5); WHITE BLOOD COUNT 5.7 10^3/ul (4.5-11.0)
[2016-12-19 23:39] LABS: INR 1.05 (0.93-1.08); PARTIAL THROMBOPLASTIN TIME 23.2 Seconds (23.7-30.8)
[2016-12-20 00:52] LABS: ALB/GLOB RATIO 1.2 (1.1-1.8); ALKALINE PHOSPHATASE 146 U/L (38-126); ALT/SGPT 43 U/L (7-56); AST/SGOT 38 U/L (14-36); BILIRUBIN,TOTAL 0.3 mg/dL (0.2-1.3); BLOOD UREA NITROGEN 15 mg/dL (7-21); CALCIUM 8.6 mg/dL (8.4-10.5); CARBON DIOXIDE 29 mmol/L (21-33); CHLORIDE 107 mmol/L (98-107); GFR AFRICAN-AMERICAN > 60; GLUCOSE,RANDOM 87 mg/dL (70-110); POTASSIUM 3.6 mmol/L (3.6-5.0); SODIUM 143 mmol/L (132-148); TOTAL PROTEIN 7.8 g/dL (5.8-8.3)
[2016-12-20 01:13] LABS: TROPONIN I < 0.01 ng/mL
[2016-12-20 02:27] VITALS: BP 136/54; PULSE 89; RESP 16; O2SAT 99
--- NOTE | 2016-12-20 10:32 | RAD ---
HISTORY: Chest pain. COMPARISON: 07/26/2016. FINDINGS: LUNGS: No active pulmonary disease. PLEURA: No significant pleural effusion identified, no pneumothorax apparent. CARDIOVASCULAR: For cardiac OSSEOUS STRUCTURES: No significant abnormalities. VISUALIZED UPPER ABDOMEN: Normal. OTHER FINDINGS: None. IMPRESSION: No active disease. No acute/significant interval changes. Concordant results with the preliminary interpretation rendered by the emergency department physician procedure.
--- NOTE | 2016-12-20 20:58 | CARD ---
APPROVED REPORT EKG Measurement Heart [id number] <Conclusion> Normal sinus rhythm Possible Left atrial enlargement T wave abnormality, consider inferior ischemia Abnormal ECG
== END 2016-12-20 02:00 | disposition home or self-care (01) ==
LOC: ED 21:58
DX: R07.9 Chest pain, unspecified (principal); I10 Essential (primary) hypertension; Z87.891 Personal history of nicotine dependence

== ENCOUNTER 2016-12-21 15:43 | Emergency (ER) | payer OTHER ==
[2016-12-21 15:44] VITALS: BMI 38.4
--- NOTE | 2016-12-21 16:15 | ED PDOC ---
Arrival/HPI <Danny Ceja - Last Filed: 12/21/16 17:25> <Sofia Mendoza - Last Filed: 12/21/16 18:10> - General Chief Complaint: Trauma Time Seen by Provider: 12/21/16 15:48 - History of Present Illness Narrative History of Present Illness (Text): 12/21/16 16:25 61 F presents s/p fall. Patient states that she was reaching into a drawer to take one of her medications when she slipped backward and fell on her head. Patient denies having any dizziness or aura before falling. She further denies palpitations and cp. Patient denies any loc, any weakness, and any los. Patient denies feeling confused. She states that the right side of her head hurts, but denies any loss of vision. Pt denies F/ch/n/v/d/sob (Danny Ceja) Past Medical History - Provider Review Nursing Documentation Reviewed: Yes <Danny Ceja - Last Filed: 12/21/16 17:25> - Infectious Disease Hx of Infectious Diseases: None - Tetanus Immunization Tetanus Immunization: Up to Date - Past Medical History Past Medical History: Non-Contributing - Cardiac Hx Congestive Heart Failure: Yes Hx Hypertension: Yes Hx Peripheral Edema: Yes - Pulmonary Hx Asthma: Yes Hx Bronchitis: Yes Hx Pulmonary Embolism: Yes - Neurological Hx Neurological Disorder: Yes Hx Seizures: Yes - HEENT Hx HEENT Disorder: No - Renal Hx Renal Disorder: No - Endocrine/Metabolic Hx Endocrine Disorders: No - Hematological/Oncological Hx Anemia: Yes Other/Comment: dvt elicia legs - Integumentary Hx Dermatological Disorder: No - Musculoskeletal/Rheumatological Hx Arthritis: Yes - Gastrointestinal Hx Gastritis: Yes Hx Gastrointestinal Ulcer: Yes - Genitourinary/Gynecological Hx Genitourinary Disorders: No Hx Sexually Transmitted Diseases: No - Psychiatric Hx Anxiety: Yes Hx Depression: Yes Hx Substance Use: No - Past Surgical History Past Surgical History: Non-Contributing - Surgical History Hx Cholecystectomy: Yes - Anesthesia Hx Anesthesia: Yes Hx Anesthesia Reactions: No Hx Malignant Hyperthermia: No - Suicidal Assessment Feels Threatened In Home Enviroment: No <Sofia Mendoza - Last Filed: 12/21/16 18:10> Family/Social History - Physician Review Nursing Documentation Reviewed: Yes Family/Social History: Unknown Family HX <Danny Ceja - Last Filed: 12/21/16 17:25> Smoking Status: Former Smoker Hx Alcohol Use: No Hx Substance Use: No Substance used: PAIN MEDICATION Hx Substance Use Treatment: No <Sofia Mendoza - Last Filed: 12/21/16 18:10> Allergies/Home Meds <Danny Ceja - Last Filed: 12/21/16 17:25> <Sofia Mendoza - Last Filed: 12/21/16 18:10> Allergies/Adverse Reactions: Allergies benzethonium chloride Allergy (Intermediate, Verified 12/18/16 05:05) URTICARIA benzocaine Allergy (Unknown, Verified 12/18/16 05:05) ITCHING broccoli Allergy (Unknown, Verified 12/18/16 05:05) ITCHING ketorolac tromethamine [From Toradol] Allergy (Unknown, Verified 12/18/16 05:05) ANAPHYLAXIS lidocaine Allergy (Unknown, Verified 12/18/16 05:05) ITCHING nitroglycerin Allergy (Unknown, Verified 12/18/16 05:05) URTICARIA pineapple Allergy (Unknown, Verified 12/18/16 05:05) ITCHING trazodone Allergy (Unknown, Verified 12/18/16 05:05) "heart flutters", swelling haloperidol [From Haldol] Allergy (Verified 12/18/16 05:05) VOMITING haloperidol lactate [From Haldol] Allergy (Verified 12/18/16 05:05) VOMITING oxycodone Allergy (Verified 12/18/16 05:05) SHORTNESS OF BREATH Unknown reaction, patient refused to answer. ziprasidone HCl [From Geodon] Allergy (Verified 12/18/16 05:05) SHORTNESS OF BREATH palpitations ziprasidone mesylate [From Geodon] Allergy (Verified 12/18/16 05:05) SHORTNESS OF BREATH aspirin Adverse Reaction (Unknown, Verified 12/18/16 05:05) "heart flutters", swelling Lanacane Allergy (Uncoded 10/29/16 01:04) SHORTNESS OF BREATH Unknown reaction, patient refused to answer. Steroids Allergy (Uncoded 10/29/16 01:04) SHORTNESS OF BREATH Unknown reaction, patient refused to answer. steroids Allergy (Uncoded 10/29/16 01:04) "heart flutters", swelling Home Medications: Home Meds Medication Instructions Recorded Confirmed Albuterol HFA [Ventolin HFA 90 1 inh INH TID 12/18/16 12/21/16 mcg/actuation (8 g)] DiphenhydrAMINE [Benadryl] 25 mg PO PRN PRN 12/18/16 12/21/16 Enoxaparin [Lovenox] 80 mg SC BID 12/18/16 12/21/16 HYDROmorphone [Dilaudid] 2 mg PO QID 12/18/16 12/21/16 LORazepam [Ativan] 2 mg PO TID 12/18/16 12/21/16 Omeprazole Magnesium [Prilosec Otc] 40 mg PO DAILY 12/18/16 12/21/16 Phenytoin, Extended [Dilantin] 100 mg PO QID 12/18/16 12/21/16 amLODIPine [Norvasc] 10 mg PO BID 12/18/16 12/21/16 Review of Systems - Physician Review All systems were reviewed & negative as marked: Yes - Review of Systems Constitutional: Normal. absent: Fatigue, Weight Change, Fevers Eyes: Normal. absent: Vision Changes, Photophobia ENT: Normal. absent: Hearing Changes, Tinnitus Respiratory: Normal. absent: SOB, Cough, Sputum Cardiovascular: Normal. absent: Chest Pain, Palpitations, Edema, Calf Pain Gastrointestinal: Normal. absent: Abdominal Pain, Diarrhea, Nausea, Vomiting Genitourinary Female: Normal. absent: Dysuria, Frequency, Hematuria Musculoskeletal: Normal. absent: Arthralgias, Back Pain, Neck Pain Skin: Normal. absent: Rash, Pruritis, Skin Lesions Neurological: Headache. absent: Dizziness, Focal Weakness, Gait Changes Endocrine: Normal. absent: Diaphoresis, Polyuria, Polydipsia Hemo/Lymphatic: Normal. absent: Adenopathy, Easy Bleeding, Easy Bruising Psychiatric: Normal. absent: Anxiety, Depression, Suicidal Ideation <Danny Ceja - Last Filed: 12/21/16 17:25> Physical Exam Vital Signs Reviewed: Yes Temperature: Afebrile Blood Pressure: Hypertensive Pulse: Regular Respiratory Rate: Normal Appearance: Positive for: Well-Appearing, Non-Toxic, Comfortable Pain Distress: None Mental Status: Positive for: Alert and Oriented X 3 - Systems Exam Head: Present: Normocephalic, Contusion (patient has a minor contusion on the right side of her scalp, <1 cm in length. No discoloration.), Ecchymosis. No: Atraumatic Pupils: Present: PERRL. No: Sluggish, Non-Reactive, Pinpoint Extroacular Muscles: Present: EOMI. No: Gaze Palsy, Entrapment Conjunctiva: Present: Normal. No: Injected, Icteric Ears: Present: Normal, NORMAL TM, Normal Canal. No: Erythema, TM Bulging Mouth: Present: Moist Mucous Membranes, Dry, Normal Lips, Normal Tounge, Normal Teeth. No: Drooling, Trismus Pharnyx: Present: Normal. No: ERYTHEMA, EXUDATE, TONSILS ENLARGED Nose (External): Present: Atraumatic. No: Abrasion, Contusion, Laceration Nose (Internal): Present: Normal Inspection. No: No Active Bleeding, Moist, Engorged, Edematous, Boggy Neck: Present: Normal Range of Motion. No: Meningeal Signs, MIDLINE TENDERNESS , Paraspinal Tenderness Respiratory/Chest: Present: Clear to Auscultation, Good Air Exchange. No: Respiratory Distress, Accessory Muscle Use, Wheezes Cardiovascular: Present: Regular Rate and Rhythm, Normal S1, S2. No: Murmurs, Irregular Rhythm Abdomen: Present: Normal Bowel Sounds. No: Tenderness, Distention, Peritoneal Signs, Rebound, Guarding Back: Present: Normal Inspection. No: CVA Tenderness, Midline Tenderness, Paraspinal Tenderness Upper Extremity: Present: Normal Inspection, Normal ROM, NORMAL PULSES. No: Cyanosis, Edema, Tenderness Lower Extremity: Present: Normal Inspection, NORMAL PULSES, Normal ROM. No: Edema, CALF TENDERNESS, Cyanosis Neurological: Present: GCS=15, CN II-XII Intact, Speech Normal, Motor Func Grossly Intact, Normal Sensory Function, Norm Deep Tendon Reflexes Skin: Present: Warm, Normal Color. No: Dry, Rashes Lymphatic: No: Cervical Adenopathy, Axillary Adenopathy, Inguinal Adenopathy Psychiatric: Present: Alert, Oriented x 3, Normal Insight, Normal Concentration , Normal Affect, Normal Mood. No: Depressed Mood, Suicidal Ideation, Homicidal Ideation <Danny Ceja - Last Filed: 12/21/16 17:25> Medical Decision Making <Danny Ceja - Last Filed: 12/21/16 17:25> <Sofia Mendoza - Last Filed: 12/21/16 18:10> ED Course and Treatment: Assessed 12/21/16 16:17 Impression: 61 F presents with loss of balance resulting in a fall. Syncope not suspected, no aura, no loc. Mild contusion on right side of scalp Plan - CT Head - Pain control, if desired, with Toradol Reassessed 12/21/16 17:30 - CT Head shows no acute disease - Pt does not need pain control - Stable for discharge (Danny Ceja) 12/21/16 16:12 Patient Seen With Resident: In agreement with resident note which contains more details about the patient. Patient was seen and evaluated with resident. Came up with plan and treatment together. Patient reports losing balance and falling backwards. there was no loss of consciousness. The patient denies any nausea, chest pain, shortness of breath, or any bony deformities. She is currently neurologically intact. I will obtain head CT of the patient as she is on an anticoagulants. I will continue to observe patient in the emergency department. No seizure activity reported. Denies depression or suicidal ideation. Denies acute chest pain or sob. Observed in ED. Neuro intact and ambulatory without difficulty. Patient with no lower extremity injury or upper extremity injury. No neck pain. Stressed need for follow-up with PMD. NO SYNCOPE OR NEAR SYNCOPE per history. 12/21/16 18:08 (Sofia Mendoza) - RAD Interpretation Radiology Orders: 12/21/16 16:13 HEAD W/O CONTRAST [CT] Stat <Danny Ceja - Last Filed: 12/21/16 17:25> - Scribe Statement The provider has reviewed the documentation as recorded by the Scribe <Sofia Mendoza - Last Filed: 12/21/16 18:10> - Scribe Statement Kate Justice Provider Scribe Attestation: All medical record entries made by the Scribe were at my direction and personally dictated by me. I have reviewed the chart and agree that the record accurately reflects my personal performance of the history, physical exam, medical decision making, and the department course for this patient. I have also personally directed, reviewed, and agree with the discharge instructions and disposition. (Sofia Mendoza) Disposition/Present on Arrival - Present on Arrival Any Indicators Present on Arrival: No History of DVT/PE: No History of Uncontrolled Diabetes: No Urinary Catheter: No History of Decub. Ulcer: No - Disposition Have Diagnosis and Disposition been Completed?: Yes Disposition Time: 17:40 Patient Plan: Discharge <MarcialDanny quiroz - Last Filed: 12/21/16 17:25> - Present on Arrival History of DVT/PE: No History of Uncontrolled Diabetes: No Urinary Catheter: No History of Decub. Ulcer: No History Surgical Site Infection Following: None <Sofia Mendoza - Last Filed: 12/21/16 18:10> - Disposition Diagnosis: Closed head injury Disposition: HOME/ ROUTINE Condition: GOOD Discharge Instructions (ExitCare): Head Injury (ED) Additional Instructions: Ms. Abreu, thank you for letting us take care of you today. Your providers were Dr. Mendoza and Dr. Ceja. You were treated for a closed head injury. The emergency medical care you received today was directed at your acute symptoms. If you were prescribed any medication, please fill it and take as directed. It may take several days for your symptoms to resolve. Return to the Emergency Department if your symptoms worsen, do not improve, or if you have any other problems. Please contact your doctor or call one of the physicians/clinics you have been referred to that are listed on the Patient Visit Information form that is included in your discharge packet. Bring any paperwork you were given at discharge with you along with any medications you are taking to your follow up visit. Our treatment cannot replace ongoing medical care by a primary care provider (PCP) outside of the emergency department. Thank you for allowing the [facility] team to be part of your care today. A head CT was performed, and came back without any acute disease. Referrals: PCP,NO [Primary Care Provider] - Follow up with primary Forms: [employer] (Chadian)
[2016-12-21 16:36] VITALS: BP 145/87; PULSE 79; RESP 17; O2SAT 100
[2016-12-21 16:39] VITALS: TEMP 98.4
--- NOTE | 2016-12-21 17:00 | CT ---
PROCEDURE: CT HEAD WITHOUT CONTRAST. HISTORY: s/p Fall COMPARISON: None available. TECHNIQUE: Axial computed tomography images were obtained through the head/brain without intravenous contrast. Radiation dose: Total exam DLP = 774 mGy-cm. This CT exam was performed using one or more of the following dose reduction techniques: Automated exposure control, adjustment of the mA and/or kV according to patient size, and/or use of iterative reconstruction technique. FINDINGS: HEMORRHAGE: No intracranial hemorrhage. BRAIN: No mass effect or edema. No atrophy or chronic microvascular ischemic changes. VENTRICLES: Unremarkable. No hydrocephalus. CALVARIUM: Unremarkable. PARANASAL SINUSES: Unremarkable as visualized. No significant inflammatory changes. MASTOID AIR CELLS: Unremarkable as visualized. No inflammatory changes. OTHER FINDINGS: None. IMPRESSION: No acute findings
== END 2016-12-21 17:31 | disposition home or self-care (01) ==
LOC: ED 15:43
DX: S09.90XA Unspecified injury of head, initial encounter (principal); W01.0XXA Fall on same level from slipping, tripping and stumbling without subsequent striking against object, initial encounter; Y93.89 Activity, other specified; Y92.008 Other place in unspecified non-institutional (private) residence as the place of occurrence of the external cause

== ENCOUNTER 2016-12-29 18:21 | Emergency (ER) | payer OTHER ==
[2016-12-29 18:21] VITALS: BMI 38.4
[2016-12-29 18:41] VITALS: BP 146/64; TEMP 98.3
[2016-12-29 19:36] VITALS: PULSE 85; RESP 20; O2SAT 99
--- NOTE | 2016-12-29 19:37 | ED PDOC ---
Arrival/HPI - General Chief Complaint: Shortness Of Breath Time Seen by Provider: 12/29/16 18:23 Historian: Patient - History of Present Illness Narrative History of Present Illness (Text): 12/29/16 19:32 61 y.o. female whose pmhx includes partial colectomy, DVT/PE, anxiety with benzodiazepine dependence, and seizure disorder with a history of frequent visits to the ED who comes to the ED because he says that about an hour prior to arrival, she had an anxiety attack, feeling sob. The patient says she is still feeling that way and is asking for ativan, saying she ran out. She denies any cp or n/v or fever. She also says that her right foot has been swelling up. She says she is taking her lovenox 80 mg sc twice daily. Past Medical History - Infectious Disease Hx of Infectious Diseases: None - Tetanus Immunization Tetanus Immunization: Up to Date - Reproductive Menopause: Yes - Past Medical History Past Medical History: Non-Contributing - Cardiac Hx Congestive Heart Failure: Yes Hx Hypertension: Yes Hx Peripheral Edema: Yes - Pulmonary Hx Asthma: Yes Hx Bronchitis: Yes Hx Pulmonary Embolism: Yes - Neurological Hx Neurological Disorder: Yes Hx Seizures: Yes - HEENT Hx HEENT Disorder: No - Renal Hx Renal Disorder: No - Endocrine/Metabolic Hx Endocrine Disorders: No - Hematological/Oncological Hx Anemia: Yes Other/Comment: dvt elicia legs - Integumentary Hx Dermatological Disorder: No - Musculoskeletal/Rheumatological Hx Arthritis: Yes - Gastrointestinal Hx Gastritis: Yes Hx Gastrointestinal Ulcer: Yes - Genitourinary/Gynecological Hx Genitourinary Disorders: No Hx Sexually Transmitted Diseases: No - Psychiatric Hx Anxiety: Yes Hx Depression: Yes Hx Substance Use: No - Past Surgical History Past Surgical History: Non-Contributing - Surgical History Hx Cholecystectomy: Yes - Anesthesia Hx Anesthesia: Yes Hx Anesthesia Reactions: No Hx Malignant Hyperthermia: No - Suicidal Assessment Feels Threatened In Home Enviroment: No Family/Social History Family/Social History: Unknown Family HX Smoking Status: Former Smoker Hx Alcohol Use: No Hx Substance Use: No Substance used: PAIN MEDICATION Hx Substance Use Treatment: No Allergies/Home Meds Allergies/Adverse Reactions: Allergies benzethonium chloride Allergy (Intermediate, Verified 12/29/16 18:29) URTICARIA benzocaine Allergy (Unknown, Verified 12/29/16 18:29) ITCHING broccoli Allergy (Unknown, Verified 12/29/16 18:29) ITCHING ketorolac tromethamine [From Toradol] Allergy (Unknown, Verified 12/29/16 18:29) ANAPHYLAXIS lidocaine Allergy (Unknown, Verified 12/29/16 18:29) ITCHING nitroglycerin Allergy (Unknown, Verified 12/29/16 18:29) URTICARIA pineapple Allergy (Unknown, Verified 12/29/16 18:29) ITCHING trazodone Allergy (Unknown, Verified 12/29/16 18:29) "heart flutters", swelling haloperidol [From Haldol] Allergy (Verified 12/29/16 18:29) VOMITING haloperidol lactate [From Haldol] Allergy (Verified 12/29/16 18:29) VOMITING oxycodone Allergy (Verified 12/18/16 05:05) SHORTNESS OF BREATH Unknown reaction, patient refused to answer. ziprasidone HCl [From Geodon] Allergy (Verified 12/18/16 05:05) SHORTNESS OF BREATH palpitations ziprasidone mesylate [From Geodon] Allergy (Verified 12/18/16 05:05) SHORTNESS OF BREATH aspirin Adverse Reaction (Unknown, Verified 12/18/16 05:05) "heart flutters", swelling Lanacane Allergy (Uncoded 10/29/16 01:04) SHORTNESS OF BREATH Unknown reaction, patient refused to answer. Steroids Allergy (Uncoded 10/29/16 01:04) SHORTNESS OF BREATH Unknown reaction, patient refused to answer. steroids Allergy (Uncoded 10/29/16 01:04) "heart flutters", swelling Home Medications: Home Meds Medication Instructions Recorded Confirmed Albuterol HFA [Ventolin HFA 90 1 inh INH TID 12/18/16 12/29/16 mcg/actuation (8 g)] DiphenhydrAMINE [Benadryl] 25 mg PO PRN PRN 12/18/16 12/29/16 Enoxaparin [Lovenox] 80 mg SC BID 12/18/16 12/29/16 HYDROmorphone [Dilaudid] 2 mg PO QID 12/18/16 12/29/16 LORazepam [Ativan] 2 mg PO TID 12/18/16 12/29/16 Omeprazole Magnesium [Prilosec Otc] 40 mg PO DAILY 12/18/16 12/29/16 Phenytoin, Extended [Dilantin] 100 mg PO QID 12/18/16 12/29/16 amLODIPine [Norvasc] 10 mg PO BID 12/18/16 12/29/16 Review of Systems - Review of Systems Constitutional: absent: Fevers Eyes: Normal ENT: Normal Respiratory: SOB Cardiovascular: absent: Chest Pain Gastrointestinal: absent: Abdominal Pain, Nausea, Vomiting Musculoskeletal: Other (R leg swelling) Endocrine: Normal Hemo/Lymphatic: Normal Psychiatric: Anxiety Physical Exam Vital Signs Temp Pulse Resp BP Pulse Ox 12/29/16 18:42 18 98 12/29/16 18:40 98.3 F 82 18 146/64 98 Temperature: Afebrile Blood Pressure: Normal Pulse: Regular Respiratory Rate: Normal Appearance: Positive for: Well-Appearing, Non-Toxic, Comfortable Pain Distress: None Mental Status: Positive for: Alert and Oriented X 3 - Systems Exam Head: Present: Atraumatic, Normocephalic Pupils: Present: PERRL Conjunctiva: Present: Normal Mouth: Present: Moist Mucous Membranes Pharnyx: Present: Normal. No: ERYTHEMA, EXUDATE, TONSILS ENLARGED Neck: Present: Normal Range of Motion Respiratory/Chest: Present: Clear to Auscultation, Good Air Exchange. No: Respiratory Distress, Accessory Muscle Use Cardiovascular: Present: Regular Rate and Rhythm, Normal S1, S2. No: Murmurs Abdomen: Present: Normal Bowel Sounds. No: Tenderness, Distention, Peritoneal Signs Back: Present: Normal Inspection Upper Extremity: Present: Normal Inspection. No: Cyanosis, Edema Lower Extremity: Present: Other (R lower parmar, ankle, and foot with mild swelling c/w left). No: Edema Neurological: Present: GCS=15, CN II-XII Intact, Speech Normal Skin: Present: Warm, Dry, Normal Color. No: Rashes Psychiatric: Present: Alert, Oriented x 3, Normal Insight, Normal Concentration Medical Decision Making ED Course and Treatment: 12/29/16 19:40 61 y.o. female with noted history presenting with anxiety and asking for ativan. Vitals are normal. EKG is unchanged from her baseline. Regarding the ativan, patient's [place] [employer] was checked, and it appears she received 60 tabs of 2 mg of lorazepam on 12/13/16. Given [employer], I spoke to the patient and told her I would not be able to give her more ativan and that she would need to follow up with her doctor tomorrow. The patient does need a LE venous doppler to r/o DVT. 12/29/16 19:48 EKG: NSR @ 78; normal intervals; normal axis; no ST/T changes c/w previous on 12/19/16. LE doppler ordered to r/o DVT; upon returning to the patient's bed later, the patient had eloped from the ED. - RAD Interpretation Radiology Orders: 12/29/16 18:43 DUPLEX LOWER EXTRM VEIN BILAT [US] Stat Disposition/Present on Arrival - Present on Arrival Any Indicators Present on Arrival: No History of DVT/PE: No History of Uncontrolled Diabetes: No Urinary Catheter: No History of Decub. Ulcer: No History Surgical Site Infection Following: None - Disposition Have Diagnosis and Disposition been Completed?: Yes Diagnosis: Anxiety, Leg swelling Disposition: ELOPEMENT - ER ONLY Disposition Time: 19:35 Patient Plan: Other (ELOPED) Condition: UNKNOWN Referrals: Jony Sy MD [Primary Care Provider] - Follow up with primary Forms: [employer] (Cameroonian)
--- NOTE | 2016-12-30 12:12 | CARD ---
APPROVED REPORT EKG Measurement Heart [id number] <Conclusion> Normal sinus rhythm with sinus arrhythmia Possible Left atrial enlargement T wave abnormality, consider inferior ischemia Abnormal ECG
== END 2016-12-29 19:30 | disposition left against medical advice (07) ==
LOC: ED 18:21
DX: F41.9 Anxiety disorder, unspecified (principal); M79.89 Other specified soft tissue disorders

== ENCOUNTER 2016-12-30 21:06 | Emergency (ER) | payer OTHER ==
[2016-12-30 21:07] VITALS: BMI 38.4
[2016-12-30 21:29] VITALS: TEMP 98.2
[2016-12-30 23:11] VITALS: BP 148/70; PULSE 85; RESP 17; O2SAT 98
--- NOTE | 2016-12-30 23:19 | ED PDOC ---
Arrival/HPI - General Chief Complaint: Chest Pain Time Seen by Provider: 12/30/16 21:38 - History of Present Illness Narrative History of Present Illness (Text): 12/30/16 23:22 61 F with PMHx pertinent for seizure disorder presents s/p seizure. Patient states she was watching TV and began to seize. Patient remembers what she was doing before the seizure and remembers after the seizure, but does not remember actually seizing. Patient denies loc, hitting her head, and any loss of bowel/ bladder. Patient denies fevers/chills/nausea/vomiting/diarrhea/sob. Patient does admit to some musculoskeletal chest pain. No further complaints. 12/30/16 23:29 (Danny Ceja) Past Medical History - Provider Review Nursing Documentation Reviewed: Yes - Infectious Disease Hx of Infectious Diseases: None - Tetanus Immunization Tetanus Immunization: Up to Date - Reproductive Menopause: Yes - Past Medical History Past Medical History: Non-Contributing - Cardiac Hx Congestive Heart Failure: Yes Hx Hypertension: Yes Hx Peripheral Edema: Yes - Pulmonary Hx Asthma: Yes Hx Bronchitis: Yes Hx Pulmonary Embolism: Yes - Neurological Hx Neurological Disorder: Yes Hx Seizures: Yes - HEENT Hx HEENT Disorder: No - Renal Hx Renal Disorder: No - Endocrine/Metabolic Hx Endocrine Disorders: No - Hematological/Oncological Hx Anemia: Yes Other/Comment: dvt elicia legs - Integumentary Hx Dermatological Disorder: No - Musculoskeletal/Rheumatological Hx Arthritis: Yes - Gastrointestinal Hx Gastritis: Yes Hx Gastrointestinal Ulcer: Yes - Genitourinary/Gynecological Hx Genitourinary Disorders: No Hx Sexually Transmitted Diseases: No - Psychiatric Hx Anxiety: Yes Hx Depression: Yes Hx Substance Use: No - Past Surgical History Past Surgical History: Non-Contributing - Surgical History Hx Cholecystectomy: Yes - Anesthesia Hx Anesthesia: Yes Hx Anesthesia Reactions: No Hx Malignant Hyperthermia: No - Suicidal Assessment Feels Threatened In Home Enviroment: No Family/Social History - Physician Review Nursing Documentation Reviewed: Yes Family/Social History: Unknown Family HX Smoking Status: Former Smoker Hx Alcohol Use: No Hx Substance Use: No Substance used: PAIN MEDICATION Hx Substance Use Treatment: No Allergies/Home Meds Allergies/Adverse Reactions: Allergies benzethonium chloride Allergy (Intermediate, Verified 12/29/16 18:29) URTICARIA benzocaine Allergy (Unknown, Verified 12/29/16 18:29) ITCHING broccoli Allergy (Unknown, Verified 12/29/16 18:29) ITCHING ketorolac tromethamine [From Toradol] Allergy (Unknown, Verified 12/29/16 18:29) ANAPHYLAXIS lidocaine Allergy (Unknown, Verified 12/29/16 18:29) ITCHING nitroglycerin Allergy (Unknown, Verified 12/29/16 18:29) URTICARIA pineapple Allergy (Unknown, Verified 12/29/16 18:29) ITCHING trazodone Allergy (Unknown, Verified 12/29/16 18:29) "heart flutters", swelling haloperidol [From Haldol] Allergy (Verified 12/29/16 18:29) VOMITING haloperidol lactate [From Haldol] Allergy (Verified 12/29/16 18:29) VOMITING oxycodone Allergy (Verified 12/18/16 05:05) SHORTNESS OF BREATH Unknown reaction, patient refused to answer. ziprasidone HCl [From Geodon] Allergy (Verified 12/18/16 05:05) SHORTNESS OF BREATH palpitations ziprasidone mesylate [From Geodon] Allergy (Verified 12/18/16 05:05) SHORTNESS OF BREATH aspirin Adverse Reaction (Unknown, Verified 12/18/16 05:05) "heart flutters", swelling Lanacane Allergy (Uncoded 10/29/16 01:04) SHORTNESS OF BREATH Unknown reaction, patient refused to answer. Steroids Allergy (Uncoded 10/29/16 01:04) SHORTNESS OF BREATH Unknown reaction, patient refused to answer. steroids Allergy (Uncoded 10/29/16 01:04) "heart flutters", swelling Home Medications: Home Meds Medication Instructions Recorded Confirmed Albuterol HFA [Ventolin HFA 90 1 inh INH TID 12/18/16 12/30/16 mcg/actuation (8 g)] DiphenhydrAMINE [Benadryl] 25 mg PO PRN PRN 12/18/16 12/30/16 Enoxaparin [Lovenox] 80 mg SC BID 12/18/16 12/30/16 HYDROmorphone [Dilaudid] 2 mg PO QID 12/18/16 12/30/16 LORazepam [Ativan] 2 mg PO TID 12/18/16 12/30/16 Omeprazole Magnesium [Prilosec Otc] 40 mg PO DAILY 12/18/16 12/30/16 Phenytoin, Extended [Dilantin] 100 mg PO QID 12/18/16 12/30/16 amLODIPine [Norvasc] 10 mg PO BID 12/18/16 12/30/16 Review of Systems - Physician Review All systems were reviewed & negative as marked: Yes - Review of Systems Constitutional: Normal. absent: Fatigue, Weight Change, Fevers Eyes: Normal. absent: Vision Changes, Photophobia, Eye Pain ENT: Normal. absent: Hearing Changes, Tinnitus, TMJ Pain Respiratory: Normal. absent: SOB, Cough, Sputum Cardiovascular: Normal. absent: Chest Pain, Palpitations, Edema, Calf Pain Gastrointestinal: Normal. absent: Abdominal Pain, Stool Changes, Constipation, Diarrhea, Nausea, Vomiting Genitourinary Female: Normal. absent: Dysuria, Frequency, Hematuria, Urine Output Changes Musculoskeletal: Normal. absent: Arthralgias, Back Pain, Neck Pain Skin: Normal. absent: Rash, Pruritis, Skin Lesions Neurological: Normal. absent: Headache, Dizziness, Focal Weakness Endocrine: Normal. absent: Diaphoresis, Polyuria, Polydipsia Hemo/Lymphatic: Normal. absent: Adenopathy, Easy Bleeding, Easy Bruising Psychiatric: Normal. absent: Anxiety, Depression, Suicidal Ideation Physical Exam Vital Signs Reviewed: Yes Temperature: Afebrile Blood Pressure: Hypertensive Pulse: Regular Respiratory Rate: Normal Appearance: Positive for: Well-Appearing, Non-Toxic, Comfortable Pain Distress: None Mental Status: Positive for: Alert and Oriented X 3 - Systems Exam Head: Present: Atraumatic, Normocephalic. No: Tenderness, Contusion, Swelling Pupils: Present: PERRL. No: Sluggish, Non-Reactive, Pinpoint Extroacular Muscles: Present: EOMI. No: Gaze Palsy, Entrapment Conjunctiva: Present: Normal. No: Injected, Icteric Ears: Present: Normal, NORMAL TM, Normal Canal. No: Erythema, TM Bulging Mouth: Present: Moist Mucous Membranes. No: Dry, Drooling, Trismus Pharnyx: Present: Normal. No: ERYTHEMA, EXUDATE, TONSILS ENLARGED Nose (Internal): Present: Normal Inspection. No: No Active Bleeding, Moist, Engorged, Edematous, Boggy Neck: Present: Normal Range of Motion. No: Meningeal Signs, MIDLINE TENDERNESS , Paraspinal Tenderness Respiratory/Chest: Present: Clear to Auscultation, Good Air Exchange, Other ( TTP in the right chest area). No: Respiratory Distress, Accessory Muscle Use Cardiovascular: Present: Regular Rate and Rhythm, Normal S1, S2. No: Murmurs Abdomen: Present: Normal Bowel Sounds. No: Tenderness, Distention, Peritoneal Signs, Rebound, Guarding Back: Present: Normal Inspection. No: CVA Tenderness, Midline Tenderness, Paraspinal Tenderness Upper Extremity: Present: Normal Inspection, Normal ROM, NORMAL PULSES. No: Cyanosis, Edema, Tenderness, Swelling Lower Extremity: Present: Normal Inspection, NORMAL PULSES, Normal ROM. No: Edema, CALF TENDERNESS, Cyanosis Neurological: Present: GCS=15, CN II-XII Intact, Speech Normal, Motor Func Grossly Intact, Normal Sensory Function, Normal Cerebellar Funct, Norm Deep Tendon Reflexes, Gait Normal, Memory Normal, Normal 2Pt Descrimination Skin: Present: Warm, Dry, Normal Color. No: Rashes, Diaphoretic, Erythematous, Induration Psychiatric: Present: Alert, Oriented x 3, Normal Insight, Normal Concentration , Normal Affect, Normal Mood. No: Anxious, Agitated, Depressed Mood, Suicidal Ideation, Homicidal Ideation Vital Signs Temp Pulse Resp BP Pulse Ox 12/30/16 23:10 85 17 148/70 98 12/30/16 21:23 98.2 F 81 16 156/77 H 99 Medical Decision Making ED Course and Treatment: Patient Seen With Resident: In agreement with resident note which contains more details about the patient. Patient was seen and evaluated with resident. Came up with plan and treatment together. (Hung Gao) Assessed 12/30/16 22:00 Impression: 61 F presents s/p seizure and complaints of musculoskeletal chest pain Plan: - Dilantin level - EKG Reassessed 12/30/16 23:00 - EKG shows NSR - Dilantin level wnl (Danny Ceja) - Lab Interpretations Lab Results: Lab Results 12/30/16 22:24: Phenytoin 18 - Medication Orders Current Medication Orders: Discontinued Medications Lorazepam (Ativan) 1 mg PO ONCE ONE PRN Reason: Protocol Stop: 12/30/16 22:34 Last Admin: 12/30/16 22:43 Dose: 1 mg Disposition/Present on Arrival - Present on Arrival Any Indicators Present on Arrival: No History of DVT/PE: No History of Uncontrolled Diabetes: No Urinary Catheter: No History of Decub. Ulcer: No History Surgical Site Infection Following: None - Disposition Have Diagnosis and Disposition been Completed?: Yes Disposition Time: 23:00 Patient Plan: Discharge - Disposition Diagnosis: Seizure Disposition: HOME/ ROUTINE Patient Problems: Current Active Problems Problem Status Onset Seizure Acute Condition: GOOD Additional Instructions: Ms. Abreu, thank you for letting us take care of you today. Your providers were Dr. Gao and Dr. Ceja You were treated for acute seizure. The emergency medical care you received today was directed at your acute symptoms. If you were prescribed any medication, please fill it and take as directed. It may take several days for your symptoms to resolve. Return to the Emergency Department if your symptoms worsen, do not improve, or if you have any other problems. Please contact your doctor or call one of the physicians/clinics you have been referred to that are listed on the Patient Visit Information form that is included in your discharge packet. Bring any paperwork you were given at discharge with you along with any medications you are taking to your follow up visit. Our treatment cannot replace ongoing medical care by a primary care provider (PCP) outside of the emergency department. Thank you for allowing the [facility] team to be part of your care today. Referrals: Jony Sy MD [Primary Care Provider] - Follow up with primary Forms: [employer] ([place])
--- NOTE | 2016-12-31 22:58 | CARD ---
APPROVED REPORT EKG Measurement Heart [id number] <Conclusion> Normal sinus rhythm Normal ECG
== END 2016-12-30 23:10 | disposition home or self-care (01) ==
LOC: ED 21:06
DX: R56.9 Unspecified convulsions (principal)

== ENCOUNTER 2017-02-07 04:46 | Emergency (ER) | payer OTHER ==
[2017-02-07 05:07] VITALS: RESP 16; TEMP 98.3; BMI 40.2
--- NOTE | 2017-02-07 05:25 | ED PDOC ---
Arrival/HPI - General Chief Complaint: Seizure Time Seen by Provider: 02/07/17 04:59 Historian: Patient - History of Present Illness Narrative History of Present Illness (Text): 02/07/17 05:15 Justina Abreu is a 61 year old female who presents to the emergency department stating that she believes she may have experienced a seizure prior to arrival. Patient states that she woke up with having urinated on herself. Patient has a history of seizures and is on Dilantin. Patient would like her Dilantin level checked. Patient currently states that she feels fine. No other complaints offered. Time/Duration: Prior to Arrival Symptom Onset: Sudden Symptom Course: Resolved Activities at Onset: Rest Context: Home Past Medical History - Provider Review Nursing Documentation Reviewed: Yes - Infectious Disease Hx of Infectious Diseases: None - Tetanus Immunization Tetanus Immunization: Up to Date - Past Medical History Past Medical History: Non-Contributing - Cardiac Hx Congestive Heart Failure: Yes Hx Hypertension: Yes Hx Peripheral Edema: Yes - Pulmonary Hx Asthma: Yes Hx Bronchitis: Yes Hx Pulmonary Embolism: Yes - Neurological Hx Neurological Disorder: Yes Hx Seizures: Yes - HEENT Hx HEENT Disorder: No - Renal Hx Renal Disorder: No - Endocrine/Metabolic Hx Endocrine Disorders: No - Hematological/Oncological Hx Anemia: Yes Other/Comment: dvt elicia legs - Integumentary Hx Dermatological Disorder: No - Musculoskeletal/Rheumatological Hx Arthritis: Yes - Gastrointestinal Hx Gastritis: Yes Hx Gastrointestinal Ulcer: Yes - Genitourinary/Gynecological Hx Genitourinary Disorders: No Hx Sexually Transmitted Diseases: No - Psychiatric Hx Anxiety: Yes Hx Depression: Yes Hx Substance Use: No - Past Surgical History Past Surgical History: Non-Contributing - Surgical History Hx Cholecystectomy: Yes - Anesthesia Hx Anesthesia: Yes Hx Anesthesia Reactions: No Hx Malignant Hyperthermia: No - Suicidal Assessment Feels Threatened In Home Enviroment: No Family/Social History - Physician Review Nursing Documentation Reviewed: Yes Family/Social History: No Known Family HX Smoking Status: Former Smoker Hx Alcohol Use: No Hx Substance Use: No Substance used: PAIN MEDICATION Hx Substance Use Treatment: No Allergies/Home Meds Allergies/Adverse Reactions: Allergies benzethonium chloride Allergy (Intermediate, Verified 12/29/16 18:29) URTICARIA benzocaine Allergy (Unknown, Verified 12/29/16 18:29) ITCHING broccoli Allergy (Unknown, Verified 12/29/16 18:29) ITCHING ketorolac tromethamine [From Toradol] Allergy (Unknown, Verified 12/29/16 18:29) ANAPHYLAXIS lidocaine Allergy (Unknown, Verified 12/29/16 18:29) ITCHING nitroglycerin Allergy (Unknown, Verified 12/29/16 18:29) URTICARIA pineapple Allergy (Unknown, Verified 12/29/16 18:29) ITCHING trazodone Allergy (Unknown, Verified 12/29/16 18:29) "heart flutters", swelling haloperidol [From Haldol] Allergy (Verified 12/29/16 18:29) VOMITING haloperidol lactate [From Haldol] Allergy (Verified 12/29/16 18:29) VOMITING oxycodone Allergy (Verified 12/18/16 05:05) SHORTNESS OF BREATH Unknown reaction, patient refused to answer. ziprasidone HCl [From Geodon] Allergy (Verified 12/18/16 05:05) SHORTNESS OF BREATH palpitations ziprasidone mesylate [From Geodon] Allergy (Verified 12/18/16 05:05) SHORTNESS OF BREATH aspirin Adverse Reaction (Unknown, Verified 12/18/16 05:05) "heart flutters", swelling Lanacane Allergy (Uncoded 10/29/16 01:04) SHORTNESS OF BREATH Unknown reaction, patient refused to answer. Steroids Allergy (Uncoded 10/29/16 01:04) SHORTNESS OF BREATH Unknown reaction, patient refused to answer. steroids Allergy (Uncoded 10/29/16 01:04) "heart flutters", swelling Home Medications: Home Meds Medication Instructions Recorded Confirmed Albuterol HFA [Ventolin HFA 90 1 inh INH TID 12/18/16 02/07/17 mcg/actuation (8 g)] DiphenhydrAMINE [Benadryl] 25 mg PO PRN PRN 12/18/16 02/07/17 Enoxaparin [Lovenox] 80 mg SC BID 12/18/16 02/07/17 HYDROmorphone [Dilaudid] 2 mg PO QID 12/18/16 02/07/17 LORazepam [Ativan] 2 mg PO TID 12/18/16 02/07/17 Omeprazole Magnesium [Prilosec Otc] 40 mg PO DAILY 12/18/16 02/07/17 Phenytoin, Extended [Dilantin] 100 mg PO QID 12/18/16 02/07/17 amLODIPine [Norvasc] 10 mg PO BID 12/18/16 02/07/17 Review of Systems - Physician Review All systems were reviewed & negative as marked: Yes - Review of Systems Constitutional: absent: Fevers, Night Sweats Eyes: absent: Vision Changes ENT: absent: Hearing Changes Respiratory: absent: SOB, Cough Cardiovascular: absent: Chest Pain Gastrointestinal: absent: Abdominal Pain Genitourinary Female: absent: Dysuria, Frequency Musculoskeletal: absent: Arthralgias, Back Pain Skin: absent: Rash Neurological: Seizure (possible). absent: Headache, Dizziness Endocrine: absent: Diaphoresis, Polyuria Hemo/Lymphatic: absent: Adenopathy Psychiatric: absent: Depression Physical Exam Vital Signs Reviewed: Yes Vital Signs Temp Pulse Resp BP Pulse Ox 02/07/17 07:00 82 16 137/82 99 02/07/17 04:47 98.3 F 78 16 135/87 100 Temperature: Afebrile Blood Pressure: Normal Pulse: Regular Respiratory Rate: Normal Appearance: Positive for: Well-Appearing, Non-Toxic, Comfortable Pain Distress: None Mental Status: Positive for: Alert and Oriented X 3 - Systems Exam Head: Present: Atraumatic, Normocephalic Pupils: Present: PERRL Extroacular Muscles: Present: EOMI Conjunctiva: Present: Normal Mouth: Present: Moist Mucous Membranes Neck: Present: Normal Range of Motion Respiratory/Chest: Present: Clear to Auscultation, Good Air Exchange. No: Respiratory Distress, Accessory Muscle Use Cardiovascular: Present: Regular Rate and Rhythm, Normal S1, S2. No: Murmurs Abdomen: Present: Normal Bowel Sounds. No: Tenderness, Distention, Peritoneal Signs Back: Present: Normal Inspection Upper Extremity: Present: Normal Inspection. No: Cyanosis, Edema Lower Extremity: Present: Normal Inspection. No: Edema Neurological: Present: GCS=15, CN II-XII Intact, Speech Normal Skin: Present: Warm, Dry, Normal Color. No: Rashes Psychiatric: Present: Alert, Oriented x 3, Normal Insight, Normal Concentration Medical Decision Making ED Course and Treatment: 02/07/17 05:26 Impression: 61 year old female presents to emergency department stating that she believes she may have experienced a seizure prior to arrival Differential Diagnosis included but are not limited to: Plan: -- Dilantin -- Reassess and disposition Prior Visits: Notes and results from previous visits were reviewed. Patient last seen in the ED on 12/30/16 for evaluation s/p seizure. Patient was discharged home. Progress Notes: - Lab Interpretations Lab Results: Lab Results 02/07/17 05:30: Phenytoin 17 - Scribe Statement The provider has reviewed the documentation as recorded by the Barber Todd Provider Scribe Attestation: All medical record entries made by the Scribe were at my direction and personally dictated by me. I have reviewed the chart and agree that the record accurately reflects my personal performance of the history, physical exam, medical decision making, and the department course for this patient. I have also personally directed, reviewed, and agree with the discharge instructions and disposition. Disposition/Present on Arrival - Present on Arrival Any Indicators Present on Arrival: No History of DVT/PE: No History of Uncontrolled Diabetes: No Urinary Catheter: No History of Decub. Ulcer: No History Surgical Site Infection Following: None - Disposition Have Diagnosis and Disposition been Completed?: Yes Diagnosis: Seizure disorder Disposition: HOME/ ROUTINE Disposition Time: 06:55 Patient Plan: Discharge Condition: GOOD Discharge Instructions (ExitCare): Epilepsy (ED) Additional Instructions: Continue your current medication/follow up with your doctor this week Forms: [employer] ([place])
[2017-02-07 07:16] VITALS: BP 137/82; PULSE 82; O2SAT 99
== END 2017-02-07 07:15 | disposition home or self-care (01) ==
LOC: ED 04:46
DX: G40.909 Epilepsy, unspecified, not intractable, without status epilepticus (principal); I10 Essential (primary) hypertension; I50.9 Heart failure, unspecified; Z87.891 Personal history of nicotine dependence

== ENCOUNTER 2017-02-11 11:01 | Emergency (ER) | payer MEDICAID, OTHER ==
[2017-02-11 11:12] VITALS: RESP 18; TEMP 98.8
[2017-02-11 11:29] VITALS: BMI 38.4
[2017-02-11] MEDS ORDERED: Sodium Chloride 0.9% 1,000 ML IV STA (11:32)
--- NOTE | 2017-02-11 11:46 | ED PDOC ---
Arrival/HPI - General Time Seen by Provider: 02/11/17 11:02 Historian: Patient - History of Present Illness Narrative History of Present Illness (Text): 02/11/17 11:43 61 y/o female w/ pmhx of htn, seizure d/o on dilantin, pe on enoxaparin , recent visit for similar complaint on 02/07/17 w/ therapeutic dilantin levels at that time presents c/o 4-5 days of watery diarrhea, productive of 4-6 watery blood speckled bm's /day, + associated llq pain, malaise/chills, culminating in her awakening beside her couch after rising and sitting there in the morning , + urinary incontinence with diffuse myalgia familiar to her as her as her being postictal, denying any focal neurological deficits. ROS (+) rt sided dull chest pain , which she thinks may be the recurrence of her pneumonia for which she was recent admitted on 01/15/17 any another hospital, denies any cough/blanca/sob or carmen fever however PMD: Dr. Jony Sy Past Medical History - Provider Review Nursing Documentation Reviewed: Yes - Infectious Disease Hx of Infectious Diseases: None - Tetanus Immunization Tetanus Immunization: Up to Date - Past Medical History Past Medical History: Non-Contributing - Cardiac Hx Congestive Heart Failure: Yes Hx Hypertension: Yes Hx Peripheral Edema: Yes - Pulmonary Hx Asthma: Yes Hx Bronchitis: Yes Hx Pulmonary Embolism: Yes - Neurological Hx Neurological Disorder: Yes Hx Seizures: Yes - HEENT Hx HEENT Disorder: No - Renal Hx Renal Disorder: No - Endocrine/Metabolic Hx Endocrine Disorders: No - Hematological/Oncological Hx Anemia: Yes Other/Comment: dvt elicia legs - Integumentary Hx Dermatological Disorder: No - Musculoskeletal/Rheumatological Hx Arthritis: Yes - Gastrointestinal Hx Gastritis: Yes Hx Gastrointestinal Ulcer: Yes - Genitourinary/Gynecological Hx Genitourinary Disorders: No Hx Sexually Transmitted Diseases: No - Psychiatric Hx Anxiety: Yes Hx Depression: Yes Hx Substance Use: No - Past Surgical History Past Surgical History: Non-Contributing - Surgical History Hx Cholecystectomy: Yes - Anesthesia Hx Anesthesia: Yes Hx Anesthesia Reactions: No Hx Malignant Hyperthermia: No - Suicidal Assessment Feels Threatened In Home Enviroment: No Family/Social History - Physician Review Nursing Documentation Reviewed: Yes Family/Social History: No Known Family HX Smoking Status: Former Smoker Hx Alcohol Use: No Hx Substance Use: No Substance used: PAIN MEDICATION Hx Substance Use Treatment: No Allergies/Home Meds Allergies/Adverse Reactions: Allergies benzethonium chloride Allergy (Intermediate, Verified 02/11/17 11:43) URTICARIA benzocaine Allergy (Unknown, Verified 02/11/17 11:43) ITCHING broccoli Allergy (Unknown, Verified 02/11/17 11:43) ITCHING ketorolac tromethamine [From Toradol] Allergy (Unknown, Verified 02/11/17 11:43) ANAPHYLAXIS lidocaine Allergy (Unknown, Verified 02/11/17 11:43) ITCHING nitroglycerin Allergy (Unknown, Verified 02/11/17 11:43) URTICARIA pineapple Allergy (Unknown, Verified 02/11/17 11:43) ITCHING trazodone Allergy (Unknown, Verified 02/11/17 11:43) "heart flutters", swelling haloperidol [From Haldol] Allergy (Verified 02/11/17 11:43) VOMITING haloperidol lactate [From Haldol] Allergy (Verified 02/11/17 11:43) VOMITING oxycodone Allergy (Verified 02/11/17 11:43) SHORTNESS OF BREATH Unknown reaction, patient refused to answer. ziprasidone HCl [From Geodon] Allergy (Verified 02/11/17 11:43) SHORTNESS OF BREATH palpitations ziprasidone mesylate [From Geodon] Allergy (Verified 02/11/17 11:43) SHORTNESS OF BREATH aspirin Adverse Reaction (Unknown, Verified 02/11/17 11:43) "heart flutters", swelling Lanacane Allergy (Uncoded 02/11/17 11:43) SHORTNESS OF BREATH Unknown reaction, patient refused to answer. Steroids Allergy (Uncoded 02/11/17 11:43) SHORTNESS OF BREATH Unknown reaction, patient refused to answer. steroids Allergy (Uncoded 02/11/17 11:43) "heart flutters", swelling Home Medications: Home Meds Medication Instructions Recorded Confirmed Albuterol HFA [Ventolin HFA 90 1 inh INH TID 12/18/16 02/11/17 mcg/actuation (8 g)] DiphenhydrAMINE [Benadryl] 25 mg PO PRN PRN 12/18/16 02/11/17 Enoxaparin [Lovenox] 80 mg SC BID 12/18/16 02/11/17 HYDROmorphone [Dilaudid] 2 mg PO QID 12/18/16 02/11/17 LORazepam [Ativan] 2 mg PO TID 12/18/16 02/11/17 Omeprazole Magnesium [Prilosec Otc] 40 mg PO DAILY 12/18/16 02/11/17 Phenytoin, Extended [Dilantin] 100 mg PO QID 12/18/16 02/11/17 amLODIPine [Norvasc] 10 mg PO BID 12/18/16 02/11/17 Review of Systems - Physician Review All systems were reviewed & negative as marked: Yes - Review of Systems Constitutional: Fatigue, Other (chills) Eyes: Normal ENT: Normal Respiratory: Normal Cardiovascular: Normal Gastrointestinal: Abdominal Pain, Diarrhea Genitourinary Female: Normal Musculoskeletal: Normal Skin: Normal Neurological: Normal Endocrine: Normal Hemo/Lymphatic: Normal Psychiatric: Normal Physical Exam Vital Signs Reviewed: Yes Vital Signs Temp Pulse Resp BP Pulse Ox 02/11/17 19:37 75 18 161/79 H 99 02/11/17 15:40 71 18 155/75 H 100 02/11/17 12:43 75 18 158/79 H 100 02/11/17 11:11 98.8 F 88 18 161/86 H 100 Temperature: Afebrile Blood Pressure: Hypertensive Pulse: Regular Respiratory Rate: Normal Appearance: Positive for: Well-Appearing, Non-Toxic, Comfortable Pain Distress: None Mental Status: Positive for: Alert and Oriented X 3 - Systems Exam Head: Present: Atraumatic, Normocephalic Pupils: Present: PERRL Extroacular Muscles: Present: EOMI Conjunctiva: Present: Normal Mouth: Present: Moist Mucous Membranes Neck: Present: Normal Range of Motion Respiratory/Chest: Present: Clear to Auscultation, Good Air Exchange. No: Respiratory Distress, Accessory Muscle Use Cardiovascular: Present: Regular Rate and Rhythm, Normal S1, S2. No: Murmurs Abdomen: Present: Normal Bowel Sounds, Other (llq ttp ). No: Tenderness, Distention, Peritoneal Signs Back: Present: Normal Inspection Upper Extremity: Present: Normal Inspection. No: Cyanosis, Edema Lower Extremity: Present: Normal Inspection. No: Edema Neurological: Present: GCS=15, CN II-XII Intact, Speech Normal, Motor Func Grossly Intact, Normal Sensory Function, Normal Cerebellar Funct, Norm Deep Tendon Reflexes, Gait Normal, Memory Normal, Normal 2Pt Descrimination Skin: Present: Warm, Dry, Normal Color. No: Rashes Psychiatric: Present: Alert, Oriented x 3, Normal Insight, Normal Concentration Medical Decision Making ED Course and Treatment: 02/11/17 11:48 Impression: A 61 year old female with watery diarrhea, productive of 4-6 watery blood speckled bm's /day, + associated llq pain, malaise/chills. Plan: -- EKG -- Abd/Pelvis CT -- Head CT -- Chest X-ray -- Labs -- IV Fluids -- CDIFF Toxin and Antigen -- Stool Culture -- Urine Culture -- Urinalysis -- Reassess and disposition Prior Visits: Notes and results from previous visits were reviewed. Patient was last seen here in the emergency department on 02/07/2017 for possible seizure. Patient was discharged home. Progress Notes: 02/11/17 20:51 serial abdominal exams benign, ct a/p w/ po contrast significant for mild ileus which will be treated with reglan. Pt is chrocnically opiate dependent and likley suffering mild opiate induced ileus, but endorses passing gas, and has eaten 2 lunches while here in our ED. serial neurological exams are benign , pt is ambulatory, and at baseline mental status. and has been orally loaded with dilantin. She will be discharged on a bowel regimen as her llq pain is likley related to opiate induced constipation. Her seizures are at abaseline frequency reportedly and she has pmd f/u and will be discharged with neurology f/u to address her antiepileptic regimen. - Lab Interpretations Lab Results: 02/11/17 13:48 02/11/17 17:00 Lab Results 02/11/17 17:00: Phenytoin 8 L 02/11/17 17:00: Sodium 143, Potassium 4.6, Chloride 108 H, Carbon Dioxide 25, Anion Gap 15, BUN 9, Creatinine 0.6 L, Est GFR ( Amer) > 60, Est GFR (Non -Af Amer) > 60, Random Glucose 115 H, Calcium 8.9, Total Bilirubin 1.3, AST 77 H D, ALT 61 H, Alkaline Phosphatase 141 H, Total Creatine Kinase 222, Troponin I 0.02 D, Total Protein 8.3, Albumin 4.4, Globulin 3.9, Albumin/Globulin Ratio 1.1 02/11/17 13:48: WBC 5.2, RBC 4.07, Hgb 13.3, Hct 39.6, MCV 97.3, MCH 32.7, MCHC 33.6, RDW 14.4, Plt Count 133, MPV 9.7, Gran % 60.7, Lymph % (Auto) 31.3, [place] % (Auto) 7.2 H, Eos % (Auto) 0.8 L, Baso % (Auto) 0.0, Gran # 3.13, Lymph # 1.6 , Willacy # 0.4, Eos # 0.0, Baso # 0.00 - RAD Interpretation Radiology Orders: 02/11/17 11:32 HEAD W/O CONTRAST [CT] Stat 02/11/17 11:41 CHEST TWO VIEWS (PA/LAT) [RAD] Stat 02/11/17 14:04 ABDOMEN & PELVIS [ABD & PELVIS PO CONTRAST ONLY] [CT] Stat - Medication Orders Current Medication Orders: Metoclopramide HCl (Reglan) 10 mg PO STAT STA Stop: 02/11/17 20:49 Phenytoin Sodium (Dilantin) 300 mg PO STAT STA Stop: 02/11/17 20:47 Discontinued Medications Codeine Sulfate (Codeine) 30 mg PO ONCE ONE Stop: 02/11/17 17:59 Last Admin: 02/11/17 18:08 Dose: 30 mg [facility] Pain Assessment Document 02/11/17 18:08 MARANDA (Rec: 02/11/17 18:08 MARANDA RECOVERED-LAP) Pain Reassessment Is this a pain reassessment? Yes Presence of Pain Presence of Pain Yes Pain Scale Used Pain Scale Used Numeric Location Pain Location Body Site Generalized Description Description Constant Intensity of Pain at present 10 Dicyclomine HCl (Bentyl) 20 mg PO ONCE ONE Stop: 02/11/17 15:18 Last Admin: 02/11/17 16:00 Dose: Not Given Non-Admin Reason: Patient Refused Sodium Chloride (Sodium Chloride 0.9%) 1,000 mls @ 1,000 mls/hr IV .Q1H STA Stop: 02/11/17 12:31 Last Admin: 02/11/17 13:54 Dose: 1,000 mls/hr eMAR Start Stop Document 02/11/17 13:54 GMD (Rec: 02/11/17 13:54 GMD [id number]) Intravenous Solution Start Date 02/11/17 Start Time 13:54 End Date 02/11/17 End time 14:24 Total Infusion Time 30 Lorazepam (Ativan) 1 mg PO ONCE ONE PRN Reason: Protocol Stop: 02/11/17 17:08 Last Admin: 02/11/17 17:18 Dose: 1 mg Phenytoin Sodium (Dilantin) 300 mg PO STAT STA Stop: 02/11/17 17:50 Last Admin: 02/11/17 18:08 Dose: 300 mg Disposition/Present on Arrival - Present on Arrival Any Indicators Present on Arrival: No History of DVT/PE: No History of Uncontrolled Diabetes: No Urinary Catheter: No History Surgical Site Infection Following: None - Disposition Have Diagnosis and Disposition been Completed?: Yes Diagnosis: Constipation due to opioid therapy, Seizure Disposition: HOME/ ROUTINE Disposition Time: 20:55 Patient Plan: Discharge Condition: GOOD Discharge Instructions (ExitCare): Constipation (DC), Epilepsy (DC) Print Language: SUDANESE Additional Instructions: Please eat more fibre in your diet, drink more water , and begina tapering down of your chronic opiate regimen, which will improve colonic transit of food and stools which due to back up and constipation likley contributed to today's pain. You were given an oral laoding regimen to correct your dilantin levels. Resume your regular medication schedule upon your return home. Prescriptions: Docusate Sodium [Colace] 100 mg PO TID PRN #30 capsule PRN Reason: Constipation Psyllium Husk [Evac] 340 gm PO BID PRN 14 Days powder PRN Reason: bowel irregularity Sennosides [Senna] 8.6 mg PO HS PRN #15 tablet PRN Reason: Constipation Referrals: Jony Sy MD [Primary Care Provider] - Follow up with primary
[2017-02-11] MEDS ORDERED: Iohexol 240 (50 ml) ONE (12:20)
[2017-02-11 14:00] LABS: EOS % 0.8 % (1.5-5.0); GRAN # 3.13 (1.4-6.5); GRAN % 60.7 % (50.0-68.0); HEMATOCRIT 39.6 % (36.0-48.0); LYMPH # 1.6 (1.2-3.4); LYMPH % 31.3 % (22.0-35.0); MEAN CELL VOLUME 97.3 fl (80.0-105.0); MEAN CORPUSCULAR HEMOGLOBIN 32.7 pg (25.0-35.0); MEAN CORPUSCULAR HGB CONC 33.6 g/dl (31.0-37.0); MEAN PLATELET VOLUME 9.7 fl (7.0-11.0); MONO # 0.4 (0.1-0.6); MONO % 7.2 % (1.0-6.0); RED CELL DISTRIBUTION WIDTH 14.4 % (11.5-14.5); WHITE BLOOD COUNT 5.2 10^3/ul (4.5-11.0)
--- NOTE | 2017-02-11 16:33 | CARD ---
APPROVED REPORT EKG Measurement Heart [id number] CO [id number] <Conclusion> Normal sinus rhythm T wave abnormality, consider inferior ischemia Abnormal ECG
[2017-02-11 17:11] LABS: ALB/GLOB RATIO 1.1 (1.1-1.8); ALKALINE PHOSPHATASE 141 U/L (38-126); ALT/SGPT 61 U/L (7-56); AST/SGOT 77 U/L (14-36); BLOOD UREA NITROGEN 9 mg/dL (7-21); CALCIUM 8.9 mg/dL (8.4-10.5); CARBON DIOXIDE 25 mmol/L (21-33); CHLORIDE 108 mmol/L (98-107); GFR AFRICAN-AMERICAN > 60; GLUCOSE,RANDOM 115 mg/dL (70-110); SODIUM 143 mmol/L (132-148); TOTAL PROTEIN 8.3 g/dL (5.8-8.3)
[2017-02-11 17:18] LABS: POTASSIUM 4.6 mmol/L (3.6-5.0)
[2017-02-11 17:19] LABS: BILIRUBIN,TOTAL 1.3 mg/dL (0.2-1.3)
[2017-02-11 17:23] LABS: TROPONIN I 0.02 ng/mL
[2017-02-11 19:38] VITALS: BP 161/79; PULSE 75; O2SAT 99
--- NOTE | 2017-02-11 20:04 | CT ---
EXAM: CT Head Without Intravenous Contrast EXAM DATE/TIME: 02/11/2017 11:32 AM CLINICAL HISTORY: 61 years old, female; Pain; Headache; Headache not specified; Additional info: Head trauma TECHNIQUE: Axial computed tomography images of the head/brain without intravenous contrast. All CT scans at this facility use one or more dose reduction techniques, viz.: automated exposure control; ma/kV adjustment per patient size (including targeted exams where dose is matched to indication; i.e. head); or iterative reconstruction technique. COMPARISON: CT - HEAD W/O CONTRAST 2016-12-21 16:25 FINDINGS: Brain: Ventricles are normal in size and configuration. There is no midline shift. There is mild prominence of sulci and gyri. There are no intra-axial or extra-axial mass lesions or areas of hemorrhage. There are no abnormal fluid collections. Higgins-white differentiation is maintained. Ventricles: See above. Bones: Cranial vault is intact. Soft tissues: unremarkable Sinuses: There is no acute sinusitis. Ears and mastoids: Middle ears and mastoids are unremarkable Orbits: Orbital contents are unremarkable. IMPRESSION: No acute intracranial abnormality
--- NOTE | 2017-02-11 20:17 | CT ---
EXAM: CT Abdomen and Pelvis With Intravenous Contrast EXAM DATE/TIME: 02/11/2017 2:04 PM CLINICAL HISTORY: 61 years old, female; Pain; Abdominal pain; Acute; Additional info: R/O colitis TECHNIQUE: Axial computed tomography images of the abdomen and pelvis with intravenous contrast. All CT scans at this facility use one or more dose reduction techniques, viz.: automated exposure control; ma/kV adjustment per patient size (including targeted exams where dose is matched to indication; i.e. head); or iterative reconstruction technique. CONTRAST: 100 mL of omni 350 administered intravenously. COMPARISON: There are no prior studies for comparison. FINDINGS: Lower thorax: The heart is mildly enlarged.. There is atelectasis and scarring at the lung bases. ABDOMEN: Liver: unremarkable Gallbladder and bile ducts: Gallbladder is absent.There is prominence of the common duct. Pancreas: Pancreas is mildly atrophic. Spleen: unremarkable Adrenals: There is mild bilateral adrenal thickening and nodularity. Kidneys and ureters: unremarkable Stomach and bowel: Stomach is almost completely empty. Rotation is normal. There is mild duodenal wall and fold thickening. Proximal jejunum is mildly distended with air and fluid. There are mildly distended mid small bowel loops in the left abdomen with air-fluid levels. Appendix and terminal ileum are unremarkable. There is moderate stool in the right and transverse colon. There is been partial left colon resection with a colocolic anastomosis in the left lower quadrant. There is been partial sigmoid resection with a colorectal anastomosis. Appendix: See stomach and bowel PELVIS: Bladder: unremarkable Reproductive: Uterus and adnexal structures are unremarkable. There is a small hyperdense lesion in the cervix possibly hyperdense cyst. ABDOMEN and PELVIS: Intraperitoneal space: There is no free air or free fluid. Bones/joints: Bony structures are osteopenic.There are degenerative changes in the osseus structures. Soft tissues: There is a small fat containing umbilical hernia. There is a fat containing left spigelian hernia. Vasculature: There are vascular calcifications. Lymph nodes: There is no pathologic adenopathy. IMPRESSION: Prior colon resections, no colonic obstruction; mildly distended small bowel with air-fluid levels more Additional findings as described above.
[2017-02-11] MEDS ORDERED: Oxycodone/Acetaminophen 5/325 mg Tab PO STA (21:17)
--- NOTE | 2017-02-12 10:34 | RAD ---
HISTORY: routine medical eval COMPARISON: 12/19/2016 TECHNIQUE: Chest PA and lateral FINDINGS: LUNGS: Thread-like discoid atelectasis and/or scarring in the left mid lung zone is similar-appearing. No interval consolidation suggested. The overall interstitial and bronchovascular markings appear borderline prominent- however patient's large body habitus may be contributing to this. PLEURA: No significant pleural effusion identified. No pneumothorax apparent. CARDIOVASCULAR: Mild cardiomegaly left ventricular enlargement configuration -similar OSSEOUS STRUCTURES: No significant abnormalities. VISUALIZED UPPER ABDOMEN: Normal. OTHER FINDINGS: None. IMPRESSION: No interval cardiopulmonary pathology.
== END 2017-02-11 21:26 | disposition home or self-care (01) ==
LOC: ED 11:01
DX: K59.03 Drug induced constipation (principal); T40.2X5A Adverse effect of other opioids, initial encounter; R56.9 Unspecified convulsions
CPT/HCPCS: 70450; 71020; 74176; 80053; 80185; 82550; 84484; 85025; 93005; 99285; J7040; Q9966

== ENCOUNTER 2017-02-17 19:51 | Emergency (ER) | payer OTHER ==
[2017-02-17 19:52] VITALS: BMI 38.4
[2017-02-17 20:16] VITALS: TEMP 98.1; O2SAT 99
--- NOTE | 2017-02-17 20:26 | ED PDOC ---
Arrival/HPI - General Chief Complaint: Abdominal Pain Time Seen by Provider: 02/17/17 19:56 Historian: Patient - History of Present Illness Narrative History of Present Illness (Text): 02/17/17 20:26 A 61 year old female was brought in by EMS to the emergency department complaining of chest pain and abdominal pain, that started 15 minutes prior to arrival to emergency department. Patient reports never had these symptoms in the past. Patient has a history of DVTs in the past. Patient denies any other complaints at this time. PMD: Dr. Sy Symptom Onset: Sudden Symptom Course: Unchanged Activities at Onset: Rest Context: Home Past Medical History - Provider Review Nursing Documentation Reviewed: Yes - Infectious Disease Hx of Infectious Diseases: None - Tetanus Immunization Tetanus Immunization: Up to Date - Past Medical History Past Medical History: Non-Contributing - Cardiac Hx Congestive Heart Failure: Yes Hx Hypertension: Yes Hx Peripheral Edema: Yes - Pulmonary Hx Asthma: Yes Hx Bronchitis: Yes Hx Pulmonary Embolism: Yes - Neurological Hx Neurological Disorder: Yes Hx Seizures: Yes - HEENT Hx HEENT Disorder: No - Renal Hx Renal Disorder: No - Endocrine/Metabolic Hx Endocrine Disorders: No - Hematological/Oncological Hx Anemia: Yes Other/Comment: dvt elicia legs - Integumentary Hx Dermatological Disorder: No - Musculoskeletal/Rheumatological Hx Arthritis: Yes - Gastrointestinal Hx Gastritis: Yes Hx Gastrointestinal Ulcer: Yes - Genitourinary/Gynecological Hx Genitourinary Disorders: No Hx Sexually Transmitted Diseases: No - Psychiatric Hx Anxiety: Yes Hx Depression: Yes Hx Substance Use: Yes - Past Surgical History Past Surgical History: Non-Contributing - Surgical History Hx Cholecystectomy: Yes - Anesthesia Hx Anesthesia: Yes Hx Anesthesia Reactions: No Hx Malignant Hyperthermia: No - Suicidal Assessment Feels Threatened In Home Enviroment: No Family/Social History - Physician Review Nursing Documentation Reviewed: Yes Family/Social History: No Known Family HX Smoking Status: Former Smoker Hx Alcohol Use: No Hx Substance Use: Yes Substance used: PAIN MEDICATION Hx Substance Use Treatment: No Allergies/Home Meds Allergies/Adverse Reactions: Allergies benzethonium chloride Allergy (Intermediate, Verified 02/17/17 19:58) URTICARIA benzocaine Allergy (Unknown, Verified 02/17/17 19:58) ITCHING broccoli Allergy (Unknown, Verified 02/17/17 19:58) ITCHING ketorolac tromethamine [From Toradol] Allergy (Unknown, Verified 02/17/17 19:58) ANAPHYLAXIS lidocaine Allergy (Unknown, Verified 02/17/17 19:58) ITCHING nitroglycerin Allergy (Unknown, Verified 02/17/17 19:58) URTICARIA pineapple Allergy (Unknown, Verified 02/17/17 19:58) ITCHING trazodone Allergy (Unknown, Verified 02/17/17 19:58) "heart flutters", swelling haloperidol [From Haldol] Allergy (Verified 02/17/17 19:58) VOMITING haloperidol lactate [From Haldol] Allergy (Verified 02/17/17 19:58) VOMITING oxycodone Allergy (Verified 02/17/17 19:58) SHORTNESS OF BREATH Unknown reaction, patient refused to answer. ziprasidone HCl [From Geodon] Allergy (Verified 02/17/17 19:58) SHORTNESS OF BREATH palpitations ziprasidone mesylate [From Geodon] Allergy (Verified 02/17/17 19:58) SHORTNESS OF BREATH aspirin Adverse Reaction (Unknown, Verified 02/17/17 19:58) "heart flutters", swelling Lanacane Allergy (Uncoded 02/17/17 19:58) SHORTNESS OF BREATH Unknown reaction, patient refused to answer. Steroids Allergy (Uncoded 02/17/17 19:58) SHORTNESS OF BREATH Unknown reaction, patient refused to answer. steroids Allergy (Uncoded 02/17/17 19:58) "heart flutters", swelling Home Medications: Home Meds Medication Instructions Recorded Confirmed Albuterol HFA [Ventolin HFA 90 1 inh INH TID 12/18/16 02/17/17 mcg/actuation (8 g)] DiphenhydrAMINE [Benadryl] 25 mg PO PRN PRN 12/18/16 02/17/17 Enoxaparin [Lovenox] 80 mg SC BID 12/18/16 02/17/17 HYDROmorphone [Dilaudid] 2 mg PO QID 12/18/16 02/17/17 LORazepam [Ativan] 2 mg PO TID 12/18/16 02/17/17 Omeprazole Magnesium [Prilosec Otc] 40 mg PO DAILY 12/18/16 02/17/17 Phenytoin, Extended [Dilantin] 100 mg PO QID 12/18/16 02/17/17 amLODIPine [Norvasc] 10 mg PO BID 12/18/16 02/17/17 Review of Systems - Physician Review All systems were reviewed & negative as marked: Yes - Review of Systems Constitutional: absent: Fevers Cardiovascular: Chest Pain Gastrointestinal: Abdominal Pain Physical Exam Vital Signs Reviewed: Yes Vital Signs Temp Pulse Resp BP Pulse Ox 02/17/17 23:05 80 18 143/80 99 02/17/17 22:00 81 20 144/83 99 02/17/17 20:09 98.1 F 88 18 159/65 H 99 Temperature: Afebrile Blood Pressure: Hypertensive Pulse: Regular Respiratory Rate: Normal Appearance: Positive for: Well-Appearing, Non-Toxic, Other (tearful) Pain Distress: Mild Mental Status: Positive for: Alert and Oriented X 3 - Systems Exam Head: Present: Atraumatic, Normocephalic Pupils: Present: PERRL Extroacular Muscles: Present: EOMI Conjunctiva: Present: Normal Mouth: Present: Moist Mucous Membranes Neck: Present: Normal Range of Motion Respiratory/Chest: Present: Clear to Auscultation, Good Air Exchange. No: Respiratory Distress, Accessory Muscle Use Cardiovascular: Present: Regular Rate and Rhythm, Normal S1, S2. No: Murmurs Abdomen: Present: Tenderness (generalized), Normal Bowel Sounds. No: Distention , Peritoneal Signs Back: Present: Normal Inspection Upper Extremity: Present: Normal Inspection. No: Cyanosis, Edema Lower Extremity: Present: Normal Inspection. No: Edema Neurological: Present: GCS=15, CN II-XII Intact, Speech Normal Skin: Present: Warm, Dry, Normal Color. No: Rashes Psychiatric: Present: Alert, Oriented x 3, Normal Insight, Normal Concentration Medical Decision Making ED Course and Treatment: 02/17/17 20:23 Impression: A 61 year old female with chest pain and abdominal pain. Plan: -- EKG -- chest xray -- labs -- Urinalysis -- Reassess and disposition Prior Visits: Notes and results from previous visits were reviewed. Patient last reported to the emergency department on 02/11/17 for evaluation of diarrhea, abdominal pain and chills. Progress Notes: EKG: Ordered, reviewed, and independently interpreted the EKG. Rate: 88 BPM Rhythm: NSR Interpretation: QRS normal, ST normal 02/17/17 21:12 femoral stick for blood - Lab Interpretations Microbiology Results: Microbiology Results 02/17/17 22:00 Urine,Clean Catch Urine Culture - Final 10-50,000 CFU/ML. MULTIPLE SPECIES. PROBABLE CONTAMINATION. Lab Results: 02/17/17 21:07 02/17/17 21:07 Lab Results 02/17/17 22:00: Urine Color Yellow, Urine Appearance Sl cloudy, Urine pH 7.0, Ur Specific [place] 1.010, Urine Protein Negative, Urine Glucose (UA) Negative, Urine Ketones Negative, Urine Blood Small H, Urine Nitrate Negative, Urine Bilirubin Negative, Urine Urobilinogen 0.2, Ur Leukocyte Esterase Small H, Urine RBC 0 - 2, Urine WBC 1 - 3, Ur Epithelial Cells 3 - 4, Urine Bacteria Few 02/17/17 21:07: Sodium 141, Potassium 4.4, Chloride 107, Carbon Dioxide 25, Anion Gap 13, BUN 15, Creatinine 0.7, Est GFR ( Amer) > 60, Est GFR (Non- Af Amer) > 60, Random Glucose 93, Calcium 8.6, Magnesium 2.0, Total Bilirubin 0.9, AST 43 H D, ALT 37, Alkaline Phosphatase 128 H, Lactate Dehydrogenase 1097 H, Total Creatine Kinase 255 H, CK-MB (CK-2) 1.9, CK-MB (CK-2) % Cancelled, Troponin I 0.02, NT-Pro-B Natriuret Pep 18.5, Total Protein 7.4, Albumin 4.0, Globulin 3.4, Albumin/Globulin Ratio 1.2 02/17/17 21:07: WBC 5.9, RBC 3.83, Hgb 12.3, Hct 37.7, MCV 98.4, MCH 32.1, MCHC 32.6, RDW 14.6 H, Plt Count 153, MPV 11.1 H, Gran % 54.1, Lymph % (Auto) 36.1 H , [place] % (Auto) 8.3 H, Eos % (Auto) 1.5, Baso % (Auto) 0.0, Gran # 3.21, Lymph # 2.1, [place] # 0.5, Eos # 0.1, Baso # 0.00 I have reviewed the lab results: Yes - RAD Interpretation Radiology Orders: 02/17/17 20:13 CHEST PORTABLE [RAD] Stat - EKG Interpretation Interpreted by ED Physician: Yes Type: 12 lead EKG - Medication Orders Current Medication Orders: Discontinued Medications Hydromorphone HCl (Dilaudid) 1 mg IM STAT STA Stop: 02/17/17 21:16 Last Admin: 02/17/17 21:20 Dose: 1 mg MAR Pain Assessment Document 02/17/17 21:20 JO (Rec: 02/17/17 22:02 JO [id number]) Pain Reassessment Is this a pain reassessment? No Sleep Is patient sleeping during reassessment? No Presence of Pain Presence of Pain Yes Pain Scale Used Pain Scale Used Numeric Location Left, Right or Bilateral Right Upper or Lower Upper Pain Location Body Site Abdomen Description Intensity of Pain at present 8 Acceptable Level of Pain 2 Pain Behavior Moaning Irritability Restlessness Facial Grimacing IM Administration Charges Document 02/17/17 21:20 JO (Rec: 02/17/17 22:02 JO [id number]) Injection Site MAR Injection Site Left Deltoid Charges for Administration # of IM Administrations 1 - Scribe Statement The provider has reviewed the documentation as recorded by the Scribe Makenzie Murry All medical record entries made by the Scribe were at my direction and personally dictated by me. I have reviewed the chart and agree that the record accurately reflects my personal performance of the history, physical exam, medical decision making, and the department course for this patient. I have also personally directed, reviewed, and agree with the discharge instructions and disposition. Disposition/Present on Arrival - Present on Arrival Any Indicators Present on Arrival: No History of DVT/PE: No History of Uncontrolled Diabetes: No Urinary Catheter: No History of Decub. Ulcer: No History Surgical Site Infection Following: None - Disposition Have Diagnosis and Disposition been Completed?: Yes Diagnosis: Chest pain Disposition: HOME/ ROUTINE Disposition Time: 23:05 Condition: IMPROVED Discharge Instructions (ExitCare): Chest Pain (ED) Referrals: Rohith Hough MD [Staff Provider] - Follow up with primary Forms: [employer] (Djiboutian)
[2017-02-17] MEDS ORDERED: HYDROmorphone 1 mg/ml ISec IVP STA (20:43)
[2017-02-17] MEDS ORDERED: HYDROmorphone 2 mg/ml ISec IM STA (21:09)
[2017-02-17] MEDS ORDERED: HYDROmorphone 1 mg/ml ISec IM STA (21:15)
[2017-02-17 21:20] LABS: EOS # 0.1 (0.0-0.7); EOS % 1.5 % (1.5-5.0); GRAN # 3.21 (1.4-6.5); GRAN % 54.1 % (50.0-68.0); HEMATOCRIT 37.7 % (36.0-48.0); LYMPH # 2.1 (1.2-3.4); LYMPH % 36.1 % (22.0-35.0); MEAN CELL VOLUME 98.4 fl (80.0-105.0); MEAN CORPUSCULAR HEMOGLOBIN 32.1 pg (25.0-35.0); MEAN CORPUSCULAR HGB CONC 32.6 g/dl (31.0-37.0); MEAN PLATELET VOLUME 11.1 fl (7.0-11.0); MONO # 0.5 (0.1-0.6); MONO % 8.3 % (1.0-6.0); RED CELL DISTRIBUTION WIDTH 14.6 % (11.5-14.5); WHITE BLOOD COUNT 5.9 10^3/ul (4.5-11.0)
[2017-02-17 22:05] LABS: URINE BILIRUBIN NEGATIVE (NEGATIVE); URINE BLOOD SMALL (NEGATIVE); URINE GLUCOSE (UA) NEGATIVE (NEGATIVE); URINE KETONE NEGATIVE (NEGATIVE); URINE LEUKOCYTE ESTERASE SMALL Leu/uL (NEGATIVE); URINE PROTEIN NEGATIVE mg/dL (<30 mg/dL); URINE UROBILINOGEN 0.2 E.U./dL (<1 E.U./dL)
[2017-02-17 22:09] LABS: URINE APPEARANCE SL CLOUDY (CLEAR); URINE COLOR YELLOW (YELLOW)
[2017-02-17 22:17] LABS: URINE BACTERIA FEW (NEG); URINE RBC 0 - 2 /hpf (0-2)
[2017-02-17 22:38] LABS: ALB/GLOB RATIO 1.2 (1.1-1.8); ALKALINE PHOSPHATASE 128 U/L (38-126); ALT/SGPT 37 U/L (7-56); AST/SGOT 43 U/L (14-36); BILIRUBIN,TOTAL 0.9 mg/dL (0.2-1.3); BLOOD UREA NITROGEN 15 mg/dL (7-21); CALCIUM 8.6 mg/dL (8.4-10.5); CARBON DIOXIDE 25 mmol/L (21-33); CHLORIDE 107 mmol/L (98-107); GFR AFRICAN-AMERICAN > 60; GLUCOSE,RANDOM 93 mg/dL (70-110); POTASSIUM 4.4 mmol/L (3.6-5.0); SODIUM 141 mmol/L (132-148); TOTAL PROTEIN 7.4 g/dL (5.8-8.3)
[2017-02-17 22:49] LABS: TROPONIN I 0.02 ng/mL
[2017-02-17 23:07] VITALS: BP 143/80; PULSE 80; RESP 18
--- NOTE | 2017-02-18 07:52 | RAD ---
HISTORY: chest pain COMPARISON: 02/11/2017 FINDINGS: LUNGS: No active pulmonary disease. PLEURA: No significant pleural effusion identified, no pneumothorax apparent. CARDIOVASCULAR: Mild cardiomegaly OSSEOUS STRUCTURES: No significant abnormalities. VISUALIZED UPPER ABDOMEN: Normal. OTHER FINDINGS: None. IMPRESSION: No active disease.
--- NOTE | 2017-02-18 11:00 | CARD ---
APPROVED REPORT EKG Measurement Heart [id number] <Conclusion> Normal sinus rhythm T wave abnormality, consider inferior ischemia Abnormal ECG
== END 2017-02-17 23:11 | disposition home or self-care (01) ==
LOC: ED 19:51
DX: R07.9 Chest pain, unspecified (principal); I10 Essential (primary) hypertension; Z87.891 Personal history of nicotine dependence
CPT/HCPCS: 71010; 80053; 81001; 82550; 82553; 83615; 83735; 83880; 84484; 85025; 87086; 93005; 96372; 99284; J1170

== ENCOUNTER 2017-03-25 02:25 | Emergency (ER) | payer OTHER ==
[2017-03-25 02:25] VITALS: BMI 38.4
[2017-03-25] MEDS ORDERED: Albuterol-Ipratrop 3 mg / 0.5 (3 ml) UD IH STA (02:48)
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
[2017-03-25] MEDS ORDERED: Albuterol-Ipratrop 3 mg / 0.5 (3 ml) UD ONE (02:54)
[2017-03-25 03:05] LABS: ARTERIAL BLOOD GAS O2 CAPACITY 17.4 mL/dl (16-24); ARTERIAL BLOOD GAS O2 CONTENT 17.1 ML/dl (15-23); ARTERIAL BLOOD GAS PH 7.38 (7.35-7.45); ARTERIAL BLOOD HGB O2 SAT 95.5 % (95.0-98.0); CARBOXYHEMOGLOBIN 1.9 % (0.5-1.5); HHB 1.7 % (0-5); METHEMOGLOBIN 0.9 % (0.0-3.0)
[2017-03-25 06:26] VITALS: BP 135/89; PULSE 85; RESP 16; TEMP 98.5; O2SAT 100
--- NOTE | 2017-03-25 08:39 | RAD ---
HISTORY: Chest pain COMPARISON: 02/17/2017. FINDINGS: LUNGS: The lungs are well inflated. There is mild pulmonary venous congestion. PLEURA: No significant pleural effusion identified, no pneumothorax apparent. CARDIOVASCULAR: Normal. OSSEOUS STRUCTURES: No significant abnormalities. VISUALIZED UPPER ABDOMEN: Normal. OTHER FINDINGS: None. IMPRESSION: No active pulmonary disease.
--- NOTE | 2017-03-25 17:38 | CARD ---
APPROVED REPORT EKG Measurement Heart [id number] <Conclusion> Normal sinus rhythm Normal ECG
== END 2017-03-25 06:25 | disposition home or self-care (01) ==
LOC: ED 02:25
DX: F41.9 Anxiety disorder, unspecified (principal); R56.9 Unspecified convulsions; Z87.891 Personal history of nicotine dependence; I50.9 Heart failure, unspecified; I10 Essential (primary) hypertension; J44.9 Chronic obstructive pulmonary disease, unspecified

== ENCOUNTER 2017-03-26 17:43 | Emergency (ER) | payer OTHER ==
[2017-03-26 17:43] VITALS: BMI 38.4
[2017-03-26 18:11] VITALS: BP 151/86; RESP 20; TEMP 98.5; O2SAT 99
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
[2017-03-26 19:00] VITALS: PULSE 93
--- NOTE | 2017-03-27 19:08 | CARD ---
APPROVED REPORT EKG Measurement Heart [id number] MO [id number] [id number] <Conclusion> Normal sinus rhythm Possible Left atrial enlargement ST & T wave abnormality, consider inferior ischemia Prolonged QT Abnormal ECG
== END 2017-03-26 19:00 | disposition home or self-care (01) ==
LOC: ED 17:43
DX: F41.9 Anxiety disorder, unspecified (principal); I50.9 Heart failure, unspecified; Z87.891 Personal history of nicotine dependence
CPT/HCPCS: 93005; 96372; 99283; J2060

== ENCOUNTER 2017-03-27 09:04 | Emergency (ER) | payer OTHER ==
[2017-03-27 09:05] VITALS: BMI 40.2
[2017-03-27 09:27] VITALS: BP 163/75; PULSE 94; RESP 20; TEMP 98.8; O2SAT 99
--- NOTE | 2017-03-27 09:55 | ED PDOC ---
Arrival/HPI - General Chief Complaint: Chest Pain Time Seen by Provider: 03/27/17 09:10 Historian: Other (patient eloped prior to evaulation ) - History of Present Illness Narrative History of Present Illness (Text): 03/27/17 10:02 A 61 year old female, whose past medical history includes narcotic abuse, anxiety, seizure disorder, pulmonary embolism, DVT, asthma, and bronchitis, presents to the emergency department. The patient eloped before evaluation. I was unable to obtain chief complaint, HPI, ROS, and PE. Past Medical History - Infectious Disease Hx of Infectious Diseases: None - Tetanus Immunization Tetanus Immunization: Up to Date - Past Medical History Past Medical History: Non-Contributing - Cardiac Hx Congestive Heart Failure: Yes Hx Hypertension: Yes - Pulmonary Hx Asthma: Yes Hx Bronchitis: Yes - Neurological Hx Neurological Disorder: Yes Hx Seizures: Yes - HEENT Hx HEENT Disorder: No - Renal Hx Renal Disorder: No - Endocrine/Metabolic Hx Endocrine Disorders: No - Hematological/Oncological Hx Anemia: Yes - Integumentary Hx Dermatological Disorder: No - Musculoskeletal/Rheumatological Hx Arthritis: Yes - Gastrointestinal Hx Gastritis: Yes Hx Gastrointestinal Ulcer: Yes - Genitourinary/Gynecological Hx Genitourinary Disorders: No Hx Sexually Transmitted Diseases: No - Psychiatric Hx Anxiety: Yes Hx Depression: Yes Hx Substance Use: Yes - Past Surgical History Past Surgical History: Non-Contributing - Surgical History Hx Cholecystectomy: Yes - Anesthesia Hx Anesthesia: Yes Hx Anesthesia Reactions: No Hx Malignant Hyperthermia: No - Suicidal Assessment Feels Threatened In Home Enviroment: No Family/Social History - Physician Review Nursing Documentation Reviewed: Yes Family/Social History: Unknown Family HX Smoking Status: Former Smoker Hx Alcohol Use: No Hx Substance Use: Yes Substance used: PAIN MEDICATION Hx Substance Use Treatment: No Allergies/Home Meds Allergies/Adverse Reactions: Allergies benzethonium chloride Allergy (Intermediate, Verified 03/27/17 09:08) URTICARIA benzocaine Allergy (Unknown, Verified 03/27/17 09:08) ITCHING broccoli Allergy (Unknown, Verified 03/27/17 09:08) ITCHING ketorolac tromethamine [From Toradol] Allergy (Unknown, Verified 03/27/17 09:08) ANAPHYLAXIS lidocaine Allergy (Unknown, Verified 03/27/17 09:08) ITCHING nitroglycerin Allergy (Unknown, Verified 03/27/17 09:08) URTICARIA pineapple Allergy (Unknown, Verified 03/27/17 09:08) ITCHING trazodone Allergy (Unknown, Verified 03/27/17 09:08) "heart flutters", swelling haloperidol [From Haldol] Allergy (Verified 03/27/17 09:08) VOMITING haloperidol lactate [From Haldol] Allergy (Verified 03/27/17 09:08) VOMITING oxycodone Allergy (Verified 03/27/17 09:08) SHORTNESS OF BREATH Unknown reaction, patient refused to answer. ziprasidone HCl [From Geodon] Allergy (Verified 03/27/17 09:08) SHORTNESS OF BREATH palpitations ziprasidone mesylate [From Geodon] Allergy (Verified 03/27/17 09:08) SHORTNESS OF BREATH aspirin Adverse Reaction (Unknown, Verified 03/27/17 09:08) "heart flutters", swelling Lanacane Allergy (Uncoded 03/27/17 09:08) SHORTNESS OF BREATH Unknown reaction, patient refused to answer. Steroids Allergy (Uncoded 03/27/17 09:08) SHORTNESS OF BREATH Unknown reaction, patient refused to answer. steroids Allergy (Uncoded 03/27/17 09:08) "heart flutters", swelling Home Medications: Home Meds Medication Instructions Recorded Confirmed Albuterol HFA [Ventolin HFA 90 1 inh INH TID 12/18/16 03/27/17 mcg/actuation (8 g)] DiphenhydrAMINE [Benadryl] 25 mg PO PRN PRN 12/18/16 03/27/17 Enoxaparin [Lovenox] 80 mg SC BID 12/18/16 03/27/17 HYDROmorphone [Dilaudid] 2 mg PO QID 12/18/16 03/27/17 LORazepam [Ativan] 2 mg PO TID 12/18/16 03/27/17 Omeprazole Magnesium [Prilosec Otc] 40 mg PO DAILY 12/18/16 03/27/17 Phenytoin, Extended [Dilantin] 100 mg PO QID 12/18/16 03/27/17 amLODIPine [Norvasc] 10 mg PO BID 12/18/16 03/27/17 Physical Exam Vital Signs Temp Pulse Pulse Resp BP Pulse Ox 03/27/17 09:18 89 03/27/17 09:07 98.8 F 94 H 20 163/75 H 99 Medical Decision Making ED Course and Treatment: 03/27/17 09:54 Patient was seen or evaluated by me because patient eloped because she did not want to get seen any longer as per RN. EKG was presented to me and is documented below. EKG: Ordered, reviewed, and independently interpreted the EKG. Rate : 89 BPM Rhythm : NSR Interpretation : No ST-segment elevations or depressions, no T-wave inversions, normal intervals. Comparison : No previous changes from EKG on 08/16/16. - Scribe Statement The provider has reviewed the documentation as recorded by the Scribe Kate Justice Provider Scribe Attestation: All medical record entries made by the Scribe were at my direction and personally dictated by me. I have reviewed the chart and agree that the record accurately reflects my personal performance of the history, physical exam, medical decision making, and the department course for this patient. I have also personally directed, reviewed, and agree with the discharge instructions and disposition. Disposition/Present on Arrival - Present on Arrival Any Indicators Present on Arrival: Yes History of DVT/PE: Yes History of Uncontrolled Diabetes: No Urinary Catheter: No History of Decub. Ulcer: No History Surgical Site Infection Following: None - Disposition Have Diagnosis and Disposition been Completed?: No Diagnosis: Chest pain Disposition: ELOPEMENT - ER ONLY Disposition Time: 11:58 Condition: FAIR Discharge Instructions (ExitCare): Chest Pain (ED) Referrals: Ida Kumar, [Primary Care Provider] - Follow up with primary Forms: [employer] (Uruguayan)
--- NOTE | 2017-03-27 18:55 | CARD ---
APPROVED REPORT EKG Measurement Heart [id number] MD [id number] <Conclusion> Normal sinus rhythm Cannot rule out Inferior infarct, age undetermined Cannot rule out Anterior infarct, age undetermined Abnormal ECG
== END 2017-03-27 09:44 | disposition left against medical advice (07) ==
LOC: ED 09:04
DX: R07.9 Chest pain, unspecified (principal); I10 Essential (primary) hypertension; Z87.891 Personal history of nicotine dependence

== ENCOUNTER 2017-03-28 12:23 | Emergency (ER) | payer OTHER ==
[2017-03-28 12:51] VITALS: TEMP 98.6; BMI 39.3
--- NOTE | 2017-03-28 13:15 | ED PDOC ---
Arrival/HPI - General Chief Complaint: Medical Clearance Time Seen by Provider: 03/28/17 12:30 Historian: Patient - History of Present Illness Narrative History of Present Illness (Text): 03/28/17 13:00 Justina Abreu is a 61 year old female, whose past medical history includes narcotic abuse, anxiety, seizure disorder, pulmonary embolism, DVT, asthma, and bronchitis, presents to the Emergency department complaining of possible seizure today. Patient, who is well-known to the Emergency department, requests her labs to be checked. Patient denies any chest pain, shortness of breath, dizziness, lightheadedness, palpitations, headache, nausea, vomiting, diarrhea, fever, chills, cough, visual changes, tongue biting, bowel/bladder incontinence , head injury or any other complaints. Time/Duration: Prior to Arrival Symptom Onset: Gradual Symptom Course: Improving Activities at Onset: Light Context: Standing Past Medical History - Provider Review Nursing Documentation Reviewed: Yes - Infectious Disease Hx of Infectious Diseases: None - Tetanus Immunization Tetanus Immunization: Up to Date - Reproductive Menopause: Yes - Past Medical History Past Medical History: Non-Contributing - Cardiac Hx Congestive Heart Failure: Yes Hx Hypertension: Yes - Pulmonary Hx Asthma: Yes Hx Bronchitis: Yes - Neurological Hx Neurological Disorder: Yes Hx Seizures: Yes - HEENT Hx HEENT Disorder: No - Renal Hx Renal Disorder: No - Endocrine/Metabolic Hx Endocrine Disorders: No - Hematological/Oncological Hx Anemia: Yes - Integumentary Hx Dermatological Disorder: No - Musculoskeletal/Rheumatological Hx Arthritis: Yes - Gastrointestinal Hx Gastritis: Yes Hx Gastrointestinal Ulcer: Yes - Genitourinary/Gynecological Hx Genitourinary Disorders: No Hx Sexually Transmitted Diseases: No - Psychiatric Hx Anxiety: Yes Hx Depression: Yes Hx Substance Use: Yes - Past Surgical History Past Surgical History: Non-Contributing - Surgical History Hx Cholecystectomy: Yes - Anesthesia Hx Anesthesia: Yes Hx Anesthesia Reactions: No Hx Malignant Hyperthermia: No - Suicidal Assessment Feels Threatened In Home Enviroment: No Family/Social History - Physician Review Nursing Documentation Reviewed: Yes Family/Social History: Unknown Family HX Smoking Status: Former Smoker Hx Alcohol Use: No Hx Substance Use: Yes Substance used: PAIN MEDICATION Hx Substance Use Treatment: No Allergies/Home Meds Allergies/Adverse Reactions: Allergies benzethonium chloride Allergy (Intermediate, Verified 03/27/17 09:08) URTICARIA benzocaine Allergy (Unknown, Verified 03/27/17 09:08) ITCHING broccoli Allergy (Unknown, Verified 03/27/17 09:08) ITCHING ketorolac tromethamine [From Toradol] Allergy (Unknown, Verified 03/27/17 09:08) ANAPHYLAXIS lidocaine Allergy (Unknown, Verified 03/27/17 09:08) ITCHING nitroglycerin Allergy (Unknown, Verified 03/27/17 09:08) URTICARIA pineapple Allergy (Unknown, Verified 03/27/17 09:08) ITCHING trazodone Allergy (Unknown, Verified 03/27/17 09:08) "heart flutters", swelling haloperidol [From Haldol] Allergy (Verified 03/27/17 09:08) VOMITING haloperidol lactate [From Haldol] Allergy (Verified 03/27/17 09:08) VOMITING oxycodone Allergy (Verified 03/27/17 09:08) SHORTNESS OF BREATH Unknown reaction, patient refused to answer. ziprasidone HCl [From Geodon] Allergy (Verified 03/27/17 09:08) SHORTNESS OF BREATH palpitations ziprasidone mesylate [From Geodon] Allergy (Verified 03/27/17 09:08) SHORTNESS OF BREATH aspirin Adverse Reaction (Unknown, Verified 03/27/17 09:08) "heart flutters", swelling Lanacane Allergy (Uncoded 03/27/17 09:08) SHORTNESS OF BREATH Unknown reaction, patient refused to answer. Steroids Allergy (Uncoded 03/27/17 09:08) SHORTNESS OF BREATH Unknown reaction, patient refused to answer. steroids Allergy (Uncoded 03/27/17 09:08) "heart flutters", swelling Home Medications: Home Meds Medication Instructions Recorded Confirmed Albuterol HFA [Ventolin HFA 90 1 inh INH TID 12/18/16 03/27/17 mcg/actuation (8 g)] DiphenhydrAMINE [Benadryl] 25 mg PO PRN PRN 12/18/16 03/27/17 Enoxaparin [Lovenox] 80 mg SC BID 12/18/16 03/27/17 HYDROmorphone [Dilaudid] 2 mg PO QID 12/18/16 03/27/17 LORazepam [Ativan] 2 mg PO TID 12/18/16 03/27/17 Omeprazole Magnesium [Prilosec Otc] 40 mg PO DAILY 12/18/16 03/27/17 Phenytoin, Extended [Dilantin] 100 mg PO QID 12/18/16 03/27/17 amLODIPine [Norvasc] 10 mg PO BID 12/18/16 03/27/17 Review of Systems - Physician Review All systems were reviewed & negative as marked: Yes - Review of Systems Constitutional: Normal. absent: Fatigue, Fevers, Night Sweats Eyes: Normal. absent: Vision Changes ENT: Normal Respiratory: Normal. absent: SOB Cardiovascular: Normal. absent: Chest Pain, Palpitations Gastrointestinal: Normal. absent: Abdominal Pain, Stool Changes, Nausea, Vomiting Genitourinary Female: Normal Musculoskeletal: Normal Skin: Normal Neurological: Seizure. absent: Headache, Dizziness Endocrine: Normal Hemo/Lymphatic: Normal Psychiatric: Normal Physical Exam Vital Signs Reviewed: Yes Vital Signs Temp Pulse Resp BP Pulse Ox 03/28/17 16:49 77 18 135/78 98 03/28/17 12:37 98.6 F 93 H 16 136/84 96 Temperature: Afebrile Blood Pressure: Normal Pulse: Regular Respiratory Rate: Normal Appearance: Positive for: Well-Appearing, Non-Toxic, Comfortable Pain Distress: None Mental Status: Positive for: Alert and Oriented X 3 - Systems Exam Head: Present: Atraumatic, Normocephalic Pupils: Present: PERRL Extroacular Muscles: Present: EOMI Conjunctiva: Present: Normal Mouth: Present: Moist Mucous Membranes. No: Dry Neck: Present: Normal Range of Motion Respiratory/Chest: Present: Clear to Auscultation, Good Air Exchange. No: Respiratory Distress, Accessory Muscle Use Cardiovascular: Present: Regular Rate and Rhythm, Normal S1, S2. No: Murmurs Abdomen: Present: Normal Bowel Sounds. No: Tenderness, Distention, Peritoneal Signs Back: Present: Normal Inspection Upper Extremity: Present: Normal Inspection. No: Cyanosis, Edema Lower Extremity: Present: Normal Inspection. No: Edema Neurological: Present: GCS=15, CN II-XII Intact, Speech Normal Skin: Present: Warm, Dry, Normal Color. No: Rashes Psychiatric: Present: Alert, Oriented x 3, Normal Insight, Normal Concentration Medical Decision Making ED Course and Treatment: 03/28/17 13:05 Impression: 61 year old female presents to the Emergency department for possible seizure. Plan: -- Labs -- Reassess and disposition 03/28/17 16:30 Reevaluation: On reevaluation the patient feels better and is in no acute distress. I have discussed the results and plan with the patient, who expresses understanding. Patient given the opportunity to ask question, all questions were answered and there is agreement with the plan to discharge the patient home. Patient is stable for discharge. Patient was instructed to follow up with physician/clinic in 1-2 days or return if symptoms persist/worsen or new concerning symptoms arise. 03/28/17 17:54 pt notified of dilantin level. reports she has not taken meds for 4 days, howevere level upper limit normal. advise to hold and discuss with neuro outpt. - Lab Interpretations Lab Results: 03/28/17 15:50 03/28/17 15:50 Lab Results 03/28/17 15:50: Phenytoin 20 03/28/17 15:50: Sodium 142, Potassium 3.7, Chloride 109 H, Carbon Dioxide 27, Anion Gap 10, BUN 13, Creatinine 0.6 L, Est GFR ( Amer) > 60, Est GFR ( Non-Af Amer) > 60, Random Glucose 118 H, Calcium 8.6, Total Bilirubin 0.3, AST 40 H, ALT 39, Alkaline Phosphatase 124, Total Protein 7.2, Albumin 3.8, Globulin 3.4, Albumin/Globulin Ratio 1.1 03/28/17 15:50: WBC 5.7, RBC 3.69, Hgb 11.9 L, Hct 36.0, MCV 97.6, MCH 32.2, MCHC 33.1, RDW 14.0, Plt Count 123, MPV 9.3, Gran % 54.4, Lymph % (Auto) 36.4 H , Kent % (Auto) 8.3 H, Eos % (Auto) 0.9 L, Baso % (Auto) 0.0, Gran # 3.10, Lymph # 2.1, Kent # 0.5, Eos # 0.1, Baso # 0.00 I have reviewed the lab results: Yes - Scribe Statement The provider has reviewed the documentation as recorded by the Mattieibcara Chinchilla. All medical record entries made by the Scribe were at my direction and personally dictated by me. I have reviewed the chart and agree that the record accurately reflects my personal performance of the history, physical exam, medical decision making, and the department course for this patient. I have also personally directed, reviewed, and agree with the discharge instructions and disposition. Disposition/Present on Arrival - Present on Arrival Any Indicators Present on Arrival: No History of DVT/PE: Yes History of Uncontrolled Diabetes: No Urinary Catheter: No History of Decub. Ulcer: No History Surgical Site Infection Following: None - Disposition Have Diagnosis and Disposition been Completed?: Yes Diagnosis: Seizure Disposition: HOME/ ROUTINE Disposition Time: 04:00 Condition: STABLE Discharge Instructions (ExitCare): Recurrent Seizures in Adults (ED) Additional Instructions: jazmine ragland with specialist. and discuss your dilantin level. please hold you dilantin level until discussing with pmd/specialist in next 24 hours Referrals: Ida Kumar, [Primary Care Provider] - Follow up with primary Maynor Lockhart MD [Staff Provider] - Follow up with primary Forms: [employer] (Croatian)
[2017-03-28 15:59] LABS: EOS # 0.1 (0.0-0.7); EOS % 0.9 % (1.5-5.0); GRAN # 3.1 (1.4-6.5); GRAN % 54.4 % (50.0-68.0); LYMPH # 2.1 (1.2-3.4); LYMPH % 36.4 % (22.0-35.0); MEAN CELL VOLUME 97.6 fl (80.0-105.0); MEAN CORPUSCULAR HEMOGLOBIN 32.2 pg (25.0-35.0); MEAN CORPUSCULAR HGB CONC 33.1 g/dl (31.0-37.0); MEAN PLATELET VOLUME 9.3 fl (7.0-11.0); MONO # 0.5 (0.1-0.6); MONO % 8.3 % (1.0-6.0); WHITE BLOOD COUNT 5.7 10^3/ul (4.5-11.0)
[2017-03-28 16:08] LABS: ALB/GLOB RATIO 1.1 (1.1-1.8); ALKALINE PHOSPHATASE 124 U/L (38-126); ALT/SGPT 39 U/L (7-56); AST/SGOT 40 U/L (14-36); BILIRUBIN,TOTAL 0.3 mg/dL (0.2-1.3); BLOOD UREA NITROGEN 13 mg/dL (7-21); CALCIUM 8.6 mg/dL (8.4-10.5); CARBON DIOXIDE 27 mmol/L (21-33); CHLORIDE 109 mmol/L (98-107); GFR AFRICAN-AMERICAN > 60; GLUCOSE,RANDOM 118 mg/dL (70-110); POTASSIUM 3.7 mmol/L (3.6-5.0); SODIUM 142 mmol/L (132-148); TOTAL PROTEIN 7.2 g/dL (5.8-8.3)
[2017-03-28 16:50] VITALS: BP 135/78; PULSE 77; RESP 18; O2SAT 98
== END 2017-03-28 16:50 | disposition home or self-care (01) ==
LOC: ED 12:23
DX: G40.919 Epilepsy, unspecified, intractable, without status epilepticus (principal)

== ENCOUNTER 2017-04-25 16:39 | Emergency (ER) | payer OTHER ==
[2017-04-25 16:40] VITALS: BMI 40.2
[2017-04-25 17:20] VITALS: BP 136/84; PULSE 90; RESP 18; TEMP 99.1; O2SAT 98
--- NOTE | 2017-04-25 18:09 | ED PDOC ---
Arrival/HPI - General Chief Complaint: Lower Extremity Problem/Injury Time Seen by Provider: 04/25/17 17:58 Historian: Patient - History of Present Illness Narrative History of Present Illness (Text): 04/25/17 18:42 Seen Earlier, pulled out her IV and went to the Nursing office because she did not receive pain meds, (no results were back), code valerie called, patient refused to leave the hospital until she got her test results, was returned to triage as all beds were full, all studies benign. Past Medical History - Infectious Disease Hx of Infectious Diseases: None - Tetanus Immunization Tetanus Immunization: Up to Date - Reproductive Menopause: Yes - Past Medical History Past Medical History: Non-Contributing - Cardiac Hx Congestive Heart Failure: Yes Hx Hypertension: Yes Hx Peripheral Edema: Yes - Pulmonary Hx Asthma: Yes Hx Bronchitis: Yes Hx Pulmonary Embolism: Yes - Neurological Hx Migraine: Yes Hx Seizures: Yes - HEENT Hx HEENT Disorder: No - Renal Hx Renal Disorder: No - Hematological/Oncological Hx Anemia: Yes - Integumentary Hx Dermatological Disorder: No - Musculoskeletal/Rheumatological Hx Arthritis: Yes - Gastrointestinal Hx Crohn's Disease: Yes Hx Gall Bladder Disease: Yes Hx Gastritis: Yes Hx Gastrointestinal Ulcer: Yes - Genitourinary/Gynecological Hx Sexually Transmitted Diseases: No - Psychiatric Hx Anxiety: Yes Hx Depression: Yes Hx Substance Use: Yes - Past Surgical History Past Surgical History: Non-Contributing - Surgical History Hx Cholecystectomy: Yes - Anesthesia Hx Anesthesia: Yes Hx Anesthesia Reactions: No Hx Malignant Hyperthermia: No - Suicidal Assessment Feels Threatened In Home Enviroment: No Family/Social History - Physician Review Nursing Documentation Reviewed: Yes Family/Social History: Unknown Family HX Smoking Status: Former Smoker Hx Alcohol Use: No Hx Substance Use: Yes Substance used: PAIN MEDICATION Hx Substance Use Treatment: No Allergies/Home Meds Allergies/Adverse Reactions: Allergies benzethonium chloride Allergy (Intermediate, Verified 04/25/17 17:20) URTICARIA benzocaine Allergy (Unknown, Verified 04/25/17 17:20) ITCHING broccoli Allergy (Unknown, Verified 04/25/17 13:03) ITCHING ketorolac tromethamine [From Toradol] Allergy (Unknown, Verified 04/25/17 17:20) ANAPHYLAXIS lidocaine Allergy (Unknown, Verified 04/25/17 17:20) ITCHING nitroglycerin Allergy (Unknown, Verified 04/25/17 17:20) URTICARIA pineapple Allergy (Unknown, Verified 04/25/17 17:20) ITCHING trazodone Allergy (Unknown, Verified 04/25/17 17:20) "heart flutters", swelling haloperidol [From Haldol] Allergy (Verified 04/25/17 17:20) VOMITING haloperidol lactate [From Haldol] Allergy (Verified 04/25/17 17:20) VOMITING oxycodone Allergy (Verified 04/25/17 17:20) SHORTNESS OF BREATH Unknown reaction, patient refused to answer. ziprasidone HCl [From Geodon] Allergy (Verified 04/25/17 17:20) SHORTNESS OF BREATH palpitations ziprasidone mesylate [From Geodon] Allergy (Verified 04/25/17 17:20) SHORTNESS OF BREATH aspirin Adverse Reaction (Unknown, Verified 04/25/17 17:20) "heart flutters", swelling Lanacane Allergy (Uncoded 04/20/17 15:27) SHORTNESS OF BREATH Unknown reaction, patient refused to answer. Steroids Allergy (Uncoded 04/20/17 15:27) SHORTNESS OF BREATH Unknown reaction, patient refused to answer. steroids Allergy (Uncoded 04/20/17 15:27) "heart flutters", swelling Home Medications: Home Meds Medication Instructions Recorded Confirmed Enoxaparin [Lovenox] 80 mg SC BID 12/18/16 04/25/17 HYDROmorphone [Dilaudid] 2 mg PO QID 12/18/16 04/25/17 LORazepam [Ativan] 2 mg PO TID 12/18/16 04/25/17 Phenytoin, Extended [Dilantin] 100 mg PO QID 12/18/16 04/25/17 amLODIPine [Norvasc] 10 mg PO BID 12/18/16 04/25/17 Physical Exam Vital Signs Temp Pulse Resp BP Pulse Ox 04/25/17 17:17 99.1 F 90 18 136/84 98 04/25/17 16:40 99.1 F 90 18 136/84 99 - PA / ENTRY LEVEL WEB DEVELOPER / Resident Statement MD/DO has reviewed & agrees with the documentation as recorded. - Scribe Statement The provider has reviewed the documentation as recorded by the Scribe Disposition/Present on Arrival - Present on Arrival Any Indicators Present on Arrival: Yes History of DVT/PE: Yes History of Uncontrolled Diabetes: No Urinary Catheter: No History of Decub. Ulcer: No History Surgical Site Infection Following: None - Disposition Have Diagnosis and Disposition been Completed?: Yes Diagnosis: Ramon's cyst of knee Disposition: HOME/ ROUTINE Disposition Time: 18:07 Patient Plan: Discharge Patient Problems: Current Active Problems Problem Status Onset Left before treatment completed Acute Condition: GOOD Discharge Instructions (ExitCare): Ramon's Cyst (ED) Additional Instructions: Justina - Take the copies of your labs and your ultrasound to your doctor tomorrow. You have a Ramon's Cyst of your knee. Return to us if worse or any new symptoms occur. Continue all of your medications as prescribed. There are no new medicines for this at this time. Pawel- Dr. Imer Torres Referrals: Jony Sy MD [Primary Care Provider] - Follow up with primary Forms: [employer] (Angolan)
--- NOTE | 2017-04-25 18:13 | ED PDOC ---
Arrival/HPI - General Chief Complaint: Lower Extremity Problem/Injury Time Seen by Provider: 04/25/17 17:58 Historian: Patient - History of Present Illness Narrative History of Present Illness (Text): 04/25/17 18:08 61 year old female, frequent flyer in the Emergency department, presents to the Emergency department for collection of her test results performed earlier today. Patient was seen earlier in the Emergency department today for bilateral leg discomfort. Earlier today, patient angrily eloped the Emergency department after getting denied for more pain medication. Patient removed her IV herself and went to the Nurse's Office demanding for her test results. Alessandra Hamilton was called for her misdemeanor and she was later re-triaged in the Emergency department. Patient denies any complaints and only requests her reports to be provided for her primary care physician to evaluate tomorrow. Symptom Course: Improving Activities at Onset: Light Context: Other ([facility]) Past Medical History - Provider Review Nursing Documentation Reviewed: Yes - Infectious Disease Hx of Infectious Diseases: None - Tetanus Immunization Tetanus Immunization: Up to Date - Reproductive Menopause: Yes - Past Medical History Past Medical History: Non-Contributing - Cardiac Hx Congestive Heart Failure: Yes Hx Hypertension: Yes Hx Peripheral Edema: Yes - Pulmonary Hx Asthma: Yes Hx Bronchitis: Yes Hx Pulmonary Embolism: Yes - Neurological Hx Migraine: Yes Hx Seizures: Yes - HEENT Hx HEENT Disorder: No - Renal Hx Renal Disorder: No - Hematological/Oncological Hx Anemia: Yes - Integumentary Hx Dermatological Disorder: No - Musculoskeletal/Rheumatological Hx Arthritis: Yes - Gastrointestinal Hx Crohn's Disease: Yes Hx Gall Bladder Disease: Yes Hx Gastritis: Yes Hx Gastrointestinal Ulcer: Yes - Genitourinary/Gynecological Hx Sexually Transmitted Diseases: No - Psychiatric Hx Anxiety: Yes Hx Depression: Yes Hx Substance Use: Yes - Past Surgical History Past Surgical History: Non-Contributing - Surgical History Hx Cholecystectomy: Yes - Anesthesia Hx Anesthesia: Yes Hx Anesthesia Reactions: No Hx Malignant Hyperthermia: No - Suicidal Assessment Feels Threatened In Home Enviroment: No Family/Social History - Physician Review Nursing Documentation Reviewed: Yes Family/Social History: No Known Family HX Smoking Status: Former Smoker Hx Alcohol Use: No Hx Substance Use: Yes Substance used: PAIN MEDICATION Hx Substance Use Treatment: No Allergies/Home Meds Allergies/Adverse Reactions: Allergies benzethonium chloride Allergy (Intermediate, Verified 04/25/17 17:20) URTICARIA benzocaine Allergy (Unknown, Verified 04/25/17 17:20) ITCHING broccoli Allergy (Unknown, Verified 04/25/17 13:03) ITCHING ketorolac tromethamine [From Toradol] Allergy (Unknown, Verified 04/25/17 17:20) ANAPHYLAXIS lidocaine Allergy (Unknown, Verified 04/25/17 17:20) ITCHING nitroglycerin Allergy (Unknown, Verified 04/25/17 17:20) URTICARIA pineapple Allergy (Unknown, Verified 04/25/17 17:20) ITCHING trazodone Allergy (Unknown, Verified 04/25/17 17:20) "heart flutters", swelling haloperidol [From Haldol] Allergy (Verified 04/25/17 17:20) VOMITING haloperidol lactate [From Haldol] Allergy (Verified 04/25/17 17:20) VOMITING oxycodone Allergy (Verified 04/25/17 17:20) SHORTNESS OF BREATH Unknown reaction, patient refused to answer. ziprasidone HCl [From Geodon] Allergy (Verified 04/25/17 17:20) SHORTNESS OF BREATH palpitations ziprasidone mesylate [From Geodon] Allergy (Verified 04/25/17 17:20) SHORTNESS OF BREATH aspirin Adverse Reaction (Unknown, Verified 04/25/17 17:20) "heart flutters", swelling Lanacane Allergy (Uncoded 04/20/17 15:27) SHORTNESS OF BREATH Unknown reaction, patient refused to answer. Steroids Allergy (Uncoded 04/20/17 15:27) SHORTNESS OF BREATH Unknown reaction, patient refused to answer. steroids Allergy (Uncoded 04/20/17 15:27) "heart flutters", swelling Home Medications: Home Meds Medication Instructions Recorded Confirmed Enoxaparin [Lovenox] 80 mg SC BID 12/18/16 04/25/17 HYDROmorphone [Dilaudid] 2 mg PO QID 12/18/16 04/25/17 LORazepam [Ativan] 2 mg PO TID 12/18/16 04/25/17 Phenytoin, Extended [Dilantin] 100 mg PO QID 12/18/16 04/25/17 amLODIPine [Norvasc] 10 mg PO BID 12/18/16 04/25/17 Review of Systems - Physician Review All systems were reviewed & negative as marked: Yes - Review of Systems Constitutional: Normal Eyes: Normal ENT: Normal Respiratory: Normal Cardiovascular: Normal Gastrointestinal: Normal Genitourinary Female: Normal Musculoskeletal: Normal Skin: Normal Neurological: Normal Endocrine: Normal Hemo/Lymphatic: Normal Psychiatric: Normal Physical Exam Vital Signs Reviewed: Yes Vital Signs Temp Pulse Resp BP Pulse Ox 04/25/17 17:17 99.1 F 90 18 136/84 98 04/25/17 16:40 99.1 F 90 18 136/84 99 Temperature: Afebrile Blood Pressure: Normal Pulse: Regular Respiratory Rate: Normal Appearance: Positive for: Well-Appearing, Non-Toxic, Comfortable Pain Distress: None Mental Status: Positive for: Alert and Oriented X 3 - Systems Exam Head: Present: Atraumatic, Normocephalic Pupils: Present: PERRL Extroacular Muscles: Present: EOMI Conjunctiva: Present: Normal Mouth: Present: Moist Mucous Membranes Neck: Present: Normal Range of Motion Respiratory/Chest: Present: Clear to Auscultation, Good Air Exchange. No: Respiratory Distress, Accessory Muscle Use Cardiovascular: Present: Regular Rate and Rhythm, Normal S1, S2. No: Murmurs Abdomen: Present: Normal Bowel Sounds. No: Tenderness, Distention, Peritoneal Signs Back: Present: Normal Inspection Upper Extremity: Present: Normal Inspection. No: Cyanosis, Edema Lower Extremity: Present: Normal Inspection. No: Edema Neurological: Present: GCS=15, CN II-XII Intact, Speech Normal Skin: Present: Warm, Dry, Normal Color. No: Rashes Psychiatric: Present: Alert, Oriented x 3, Normal Insight, Normal Concentration Medical Decision Making ED Course and Treatment: 04/25/17 18:14 Impression: 61 year old female presents to the Emergency department to obtain lab reports from her recent Emergency department visit. Plan: -- Reassess and disposition Progress Notes: - PA / CUSHION MAT MAKER / Resident Statement MD/DO has reviewed & agrees with the documentation as recorded. - Scribe Statement The provider has reviewed the documentation as recorded by the Scribe Ewelina Chinchilla. All medical record entries made by the Scribe were at my direction and personally dictated by me. I have reviewed the chart and agree that the record accurately reflects my personal performance of the history, physical exam, medical decision making, and the department course for this patient. I have also personally directed, reviewed, and agree with the discharge instructions and disposition. Disposition/Present on Arrival - Present on Arrival Any Indicators Present on Arrival: Yes History of DVT/PE: Yes History of Uncontrolled Diabetes: No Urinary Catheter: No History of Decub. Ulcer: No History Surgical Site Infection Following: None - Disposition Have Diagnosis and Disposition been Completed?: Yes Diagnosis: Ramon's cyst of knee Disposition: HOME/ ROUTINE Disposition Time: 18:45 Patient Plan: Other Patient Problems: Current Active Problems Problem Status Onset Left before treatment completed Acute Condition: GOOD Discharge Instructions (ExitCare): Ramon's Cyst (ED) Additional Instructions: Justina - Take the copies of your labs and your ultrasound to your doctor tomorrow. You have a Ramon's Cyst of your knee. Return to us if worse or any new symptoms occur. Continue all of your medications as prescribed. There are no new medicines for this at this time. Pawel- Dr. Imer Torres Referrals: Jony Sy MD [Primary Care Provider] - Follow up with primary Forms: [email or web address] ([place])
== END 2017-04-25 18:34 | disposition home or self-care (01) ==
LOC: ED 16:39
DX: M71.21 Synovial cyst of popliteal space [Baker], right knee (principal)

== ENCOUNTER → 2017-04-25 | Emergency (ER) | payer OTHER ==
[2017-04-25 12:51] VITALS: BMI 40.2
[2017-04-25 13:01] VITALS: RESP 18; TEMP 98.2; O2SAT 100
--- NOTE | 2017-04-25 13:41 | ED PDOC ---
Arrival/HPI - General Chief Complaint: Lower Extremity Problem/Injury Time Seen by Provider: 04/25/17 13:13 Historian: Patient - History of Present Illness Narrative History of Present Illness (Text): 04/25/17 13:25 Justina Abreu is a 61 year old female, whose past medical history includes narcotic abuse, anxiety, seizure disorder, pulmonary embolism, DVT, asthma, and bronchitis, presents to the Emergency department complaining of bilateral leg pain since three days ago. Patient reports also noticing swelling and notes taking Dilaudid at home for pain. No other complaints were made. Time/Duration: < week (3 days) Symptom Course: Unchanged Quality: Aching Past Medical History - Provider Review Nursing Documentation Reviewed: Yes - Infectious Disease Hx of Infectious Diseases: None - Tetanus Immunization Tetanus Immunization: Up to Date - Reproductive Menopause: Yes - Past Medical History Past Medical History: Non-Contributing - Cardiac Hx Congestive Heart Failure: Yes Hx Hypertension: Yes Hx Peripheral Edema: Yes - Pulmonary Hx Asthma: Yes Hx Bronchitis: Yes Hx Pulmonary Embolism: Yes - Neurological Hx Migraine: Yes Hx Seizures: Yes - HEENT Hx HEENT Disorder: No - Renal Hx Renal Disorder: No - Hematological/Oncological Hx Anemia: Yes - Integumentary Hx Dermatological Disorder: No - Musculoskeletal/Rheumatological Hx Arthritis: Yes - Gastrointestinal Hx Crohn's Disease: Yes Hx Gall Bladder Disease: Yes Hx Gastritis: Yes Hx Gastrointestinal Ulcer: Yes - Genitourinary/Gynecological Hx Sexually Transmitted Diseases: No - Psychiatric Hx Anxiety: Yes Hx Depression: Yes Hx Substance Use: Yes - Past Surgical History Past Surgical History: Non-Contributing - Surgical History Hx Cholecystectomy: Yes - Anesthesia Hx Anesthesia: Yes Hx Anesthesia Reactions: No Hx Malignant Hyperthermia: No - Suicidal Assessment Feels Threatened In Home Enviroment: No Family/Social History - Physician Review Nursing Documentation Reviewed: Yes Family/Social History: Unknown Family HX Smoking Status: Former Smoker Hx Alcohol Use: No Hx Substance Use: Yes Substance used: PAIN MEDICATION Hx Substance Use Treatment: No Allergies/Home Meds Allergies/Adverse Reactions: Allergies benzethonium chloride Allergy (Intermediate, Verified 04/25/17 13:03) URTICARIA benzocaine Allergy (Unknown, Verified 04/25/17 13:03) ITCHING broccoli Allergy (Unknown, Verified 04/25/17 13:03) ITCHING ketorolac tromethamine [From Toradol] Allergy (Unknown, Verified 04/25/17 13:03) ANAPHYLAXIS lidocaine Allergy (Unknown, Verified 04/25/17 13:03) ITCHING nitroglycerin Allergy (Unknown, Verified 04/25/17 13:03) URTICARIA pineapple Allergy (Unknown, Verified 04/25/17 13:03) ITCHING trazodone Allergy (Unknown, Verified 04/25/17 13:03) "heart flutters", swelling haloperidol [From Haldol] Allergy (Verified 04/25/17 13:03) VOMITING haloperidol lactate [From Haldol] Allergy (Verified 04/25/17 13:03) VOMITING oxycodone Allergy (Verified 04/25/17 13:03) SHORTNESS OF BREATH Unknown reaction, patient refused to answer. ziprasidone HCl [From Geodon] Allergy (Verified 04/25/17 13:03) SHORTNESS OF BREATH palpitations ziprasidone mesylate [From Geodon] Allergy (Verified 04/25/17 13:03) SHORTNESS OF BREATH aspirin Adverse Reaction (Unknown, Verified 04/25/17 13:03) "heart flutters", swelling Lanacane Allergy (Uncoded 04/20/17 15:27) SHORTNESS OF BREATH Unknown reaction, patient refused to answer. Steroids Allergy (Uncoded 04/20/17 15:27) SHORTNESS OF BREATH Unknown reaction, patient refused to answer. steroids Allergy (Uncoded 04/20/17 15:27) "heart flutters", swelling Home Medications: Home Meds Medication Instructions Recorded Confirmed Enoxaparin [Lovenox] 80 mg SC BID 12/18/16 04/25/17 HYDROmorphone [Dilaudid] 2 mg PO QID 12/18/16 04/25/17 LORazepam [Ativan] 2 mg PO TID 12/18/16 04/25/17 Phenytoin, Extended [Dilantin] 100 mg PO QID 12/18/16 04/25/17 amLODIPine [Norvasc] 10 mg PO BID 12/18/16 04/25/17 Review of Systems - Review of Systems Constitutional: Normal Eyes: Normal ENT: Normal Respiratory: Normal. absent: SOB Cardiovascular: Normal. absent: Chest Pain Gastrointestinal: Normal Genitourinary Female: Normal Musculoskeletal: Other (bilateral leg pain and swelling) Skin: Normal Neurological: Normal Endocrine: Normal Hemo/Lymphatic: Normal Psychiatric: Normal Physical Exam Vital Signs Reviewed: Yes Vital Signs Temp Pulse Resp BP Pulse Ox 04/25/17 15:00 86 18 165/86 H 100 04/25/17 13:00 98.2 F 91 H 18 183/95 H 100 04/25/17 12:59 98.2 F 88 16 183/95 H 98 Temperature: Afebrile Blood Pressure: Hypertensive Pulse: Regular Respiratory Rate: Normal Appearance: Positive for: Well-Appearing, Non-Toxic, Comfortable, Other (obese) Pain Distress: None Mental Status: Positive for: Alert and Oriented X 3 - Systems Exam Head: Present: Atraumatic, Normocephalic Pupils: Present: PERRL Extroacular Muscles: Present: EOMI Conjunctiva: Present: Normal Mouth: Present: Moist Mucous Membranes Neck: Present: Normal Range of Motion Respiratory/Chest: Present: Clear to Auscultation, Good Air Exchange. No: Respiratory Distress, Accessory Muscle Use, Wheezes, Rales, Rhonchi, Tachypneic Cardiovascular: Present: Regular Rate and Rhythm, Normal S1, S2. No: Murmurs Abdomen: Present: Normal Bowel Sounds. No: Tenderness, Distention, Peritoneal Signs, Rebound, Guarding Lower Extremity: Present: Normal Inspection, NORMAL PULSES, Normal ROM, Neurovascularly Intact, Capillary Refill < 2 s. No: Edema, Cyanosis, Tenderness , Swelling, Erythema, Deformity Neurological: Present: GCS=15, CN II-XII Intact, Speech Normal Skin: Present: Warm, Dry, Normal Color. No: Rashes Psychiatric: Present: Alert, Oriented x 3, Normal Insight, Normal Concentration Medical Decision Making ED Course and Treatment: 04/25/17 Impression: 61 year old female complaining of bilateral leg pain. Plan: -- Chest X-ray -- Duplex ultradound -- Labs -- Reassess and disposition Progress Notes: EKG: Ordered, reviewed, and independently interpreted the EKG. Rate : 88 BPM Rhythm : NSR Interpretation : No ST-segment elevations or depressions, no T-wave inversions, normal intervals. 04/25/17 16:09 Patient eloped after getting denied for more pain medication. Patient removed her IV herself without any medical intervention and left the Emergency department. - Lab Interpretations Lab Results: 04/25/17 15:00 04/25/17 15:00 Lab Results 04/25/17 15:00: Sodium 140, Potassium 4.1, Chloride 107, Carbon Dioxide 25, Anion Gap 13, BUN 15, Creatinine 0.6 L, Est GFR ( Amer) > 60, Est GFR ( Non-Af Amer) > 60, Random Glucose 95, Calcium 8.6, Total Bilirubin 0.4, AST 34, ALT 45, Alkaline Phosphatase 145 H, Lactate Dehydrogenase 854 H, Total Creatine Kinase 218, Troponin I < 0.01 D, Total Protein 7.6, Albumin 3.9, Globulin 3.7, Albumin/Globulin Ratio 1.0 L 04/25/17 15:00: WBC 5.6, RBC 4.13, Hgb 13.2, Hct 40.7, MCV 98.5, MCH 32.0, MCHC 32.4, RDW 14.4, Plt Count 115 L, MPV 9.7, Gran % 64.0, Lymph % (Auto) 26.4, [place] % (Auto) 9.2 H, Eos % (Auto) 0.4 L, Baso % (Auto) 0.0, Gran # 3.56, Lymph # 1.5, [place] # 0.5, Eos # 0.0, Baso # 0.00 I have reviewed the lab results: Yes - RAD Interpretation Radiology Orders: 04/25/17 13:24 CHEST PORTABLE [RAD] Stat DUPLEX LOWER EXTRM VEIN BILAT [US] Stat Driving School Instructor: Radiologist - EKG Interpretation Interpreted by ED Physician: Yes Type: 12 lead EKG - PA / SERVICE CENTER ASSISTANT / Resident Statement MD/DO has reviewed & agrees with the documentation as recorded. - Scribe Statement The provider has reviewed the documentation as recorded by the Barber [place] Provider Scribe Attestation: All medical record entries made by the Barber were at my direction and personally dictated by me. I have reviewed the chart and agree that the record accurately reflects my personal performance of the history, physical exam, medical decision making, and the department course for this patient. I have also personally directed, reviewed, and agree with the discharge instructions and disposition. Disposition/Present on Arrival - Present on Arrival Any Indicators Present on Arrival: No History of DVT/PE: Yes History of Uncontrolled Diabetes: No Urinary Catheter: No History of Decub. Ulcer: No History Surgical Site Infection Following: None - Disposition Have Diagnosis and Disposition been Completed?: Yes Diagnosis: Left before treatment completed Disposition: HOME/ ROUTINE Disposition Time: 16:20 Condition: UNKNOWN Referrals: Jony Sy MD [Primary Care Provider] - Follow up with primary Forms: [employer] (Romanian)
--- NOTE | 2017-04-25 13:49 | RAD ---
HISTORY: chest pain COMPARISON: 03/25/2017 FINDINGS: LUNGS: No active pulmonary disease. PLEURA: No significant pleural effusion identified, no pneumothorax apparent. CARDIOVASCULAR: Normal. OSSEOUS STRUCTURES: No significant abnormalities. VISUALIZED UPPER ABDOMEN: Normal. OTHER FINDINGS: None. IMPRESSION: No active disease.
[2017-04-25 15:10] VITALS: BP 165/86; PULSE 86
[2017-04-25 15:10] LABS: EOS % 0.4 % (1.5-5.0); GRAN # 3.56 (1.4-6.5); HEMOGLOBIN 13.2 g/dL (12.0-16.0); LYMPH # 1.5 (1.2-3.4); LYMPH % 26.4 % (22.0-35.0); MEAN CELL VOLUME 98.5 fl (80.0-105.0); MEAN CORPUSCULAR HGB CONC 32.4 g/dl (31.0-37.0); MEAN PLATELET VOLUME 9.7 fl (7.0-11.0); MONO # 0.5 (0.1-0.6); MONO % 9.2 % (1.0-6.0); RBC 4.13 10^6/uL (3.5-6.1); RED CELL DISTRIBUTION WIDTH 14.4 % (11.5-14.5); WHITE BLOOD COUNT 5.6 10^3/ul (4.5-11.0)
[2017-04-25 15:31] LABS: TROPONIN I < 0.01 ng/mL
[2017-04-25 15:45] LABS: ALBUMIN 3.9 g/dL (3.0-4.8); ALT/SGPT 45 U/L (7-56); AST/SGOT 34 U/L (14-36); BLOOD UREA NITROGEN 15 mg/dL (7-21); CALCIUM 8.6 mg/dL (8.4-10.5); GFR AFRICAN-AMERICAN > 60; GFR NON-AFRICAN AMERICAN > 60
--- NOTE | 2017-04-25 15:47 | US ---
HISTORY: Leg pain and swelling. Evaluate for DVT PHYSICIAN(S): Bc Watters MD. TECHNIQUE: Duplex sonography and color-flow Doppler with graded compression were used to evaluate the deep venous systems of both lower extremities. FINDINGS: The visualized deep venous systems of both lower extremities are sonographically normal and compressible. Normal wave forms and augmentation are seen. There is no sonographic evidence for deep venous thrombosis in the visualized segments of both lower extremities. There is a 1.3 x 2.9 cm fluid collection in the right popliteal fossa, consistent with a Ramon's cyst. IMPRESSION: No sonographic evidence for deep venous thrombosis in the visualized segments of both lower extremities.
--- NOTE | 2017-04-25 19:59 | CARD ---
APPROVED REPORT EKG Measurement Heart [id number] <Conclusion> Normal sinus rhythm Nonspecific T wave abnormality Abnormal ECG
== END | disposition home or self-care (01) ==
LOC: ED 12:51
DX: M79.605 Pain in left leg (principal); M79.604 Pain in right leg; I10 Essential (primary) hypertension; R60.9 Edema, unspecified; Z87.891 Personal history of nicotine dependence

== ENCOUNTER 2017-05-05 07:11 | Emergency (ER) | payer OTHER ==
[2017-05-05 07:17] VITALS: BMI 39.3
[2017-05-05 07:26] VITALS: BP 141/74; PULSE 80; RESP 16; TEMP 98.8; O2SAT 98
--- NOTE | 2017-05-05 08:03 | ED PDOC ---
Arrival/HPI - General Chief Complaint: Anxiety Time Seen by Provider: 05/05/17 07:42 Historian: Patient - History of Present Illness Narrative History of Present Illness (Text): 05/05/17 07:44 A 61 year old female, whose past medical history includes anxiety, presents to the emergency department complaining of anxiety. Patient was seen at [facility] this morning and receieved Ativan 2 mg IM at 04:00. Patient reports she went to see her PMD this morning for refill of Ativan prescription because she needs another dose at this time. Patient has no other complaints. Denies any history of smoking or EtOH abuse. No PMD Past Medical History - Provider Review Nursing Documentation Reviewed: Yes - Infectious Disease Hx of Infectious Diseases: None - Tetanus Immunization Tetanus Immunization: Up to Date - Past Medical History Past Medical History: Non-Contributing - Cardiac Hx Congestive Heart Failure: Yes Hx Hypertension: Yes Hx Peripheral Edema: Yes - Pulmonary Hx Asthma: Yes Hx Bronchitis: Yes Hx Pulmonary Embolism: Yes - Neurological Hx Migraine: Yes Hx Seizures: Yes - HEENT Hx HEENT Disorder: No - Renal Hx Renal Disorder: No - Hematological/Oncological Hx Anemia: Yes - Integumentary Hx Dermatological Disorder: No - Musculoskeletal/Rheumatological Hx Arthritis: Yes - Gastrointestinal Hx Crohn's Disease: Yes Hx Gall Bladder Disease: Yes Hx Gastritis: Yes Hx Gastrointestinal Ulcer: Yes - Genitourinary/Gynecological Hx Sexually Transmitted Diseases: No - Psychiatric Hx Anxiety: Yes Hx Depression: Yes Hx Substance Use: Yes - Past Surgical History Past Surgical History: Non-Contributing - Surgical History Hx Cholecystectomy: Yes - Anesthesia Hx Anesthesia: Yes Hx Anesthesia Reactions: No Hx Malignant Hyperthermia: No - Suicidal Assessment Feels Threatened In Home Enviroment: No Family/Social History - Physician Review Nursing Documentation Reviewed: Yes Family/Social History: No Known Family HX Smoking Status: Former Smoker Hx Alcohol Use: No Hx Substance Use: Yes Substance used: PAIN MEDICATION Hx Substance Use Treatment: No Allergies/Home Meds Allergies/Adverse Reactions: Allergies benzethonium chloride Allergy (Intermediate, Verified 05/05/17 07:18) URTICARIA benzocaine Allergy (Unknown, Verified 05/05/17 07:18) ITCHING broccoli Allergy (Unknown, Verified 05/05/17 07:18) ITCHING ketorolac tromethamine [From Toradol] Allergy (Unknown, Verified 05/05/17 07:18) ANAPHYLAXIS lidocaine Allergy (Unknown, Verified 05/05/17 07:18) ITCHING nitroglycerin Allergy (Unknown, Verified 05/05/17 07:18) URTICARIA pineapple Allergy (Unknown, Verified 05/05/17 07:18) ITCHING trazodone Allergy (Unknown, Verified 05/05/17 07:18) "heart flutters", swelling haloperidol [From Haldol] Allergy (Verified 05/05/17 07:18) VOMITING haloperidol lactate [From Haldol] Allergy (Verified 05/05/17 07:18) VOMITING oxycodone Allergy (Verified 05/05/17 07:18) SHORTNESS OF BREATH Unknown reaction, patient refused to answer. ziprasidone HCl [From Geodon] Allergy (Verified 05/05/17 07:18) SHORTNESS OF BREATH palpitations ziprasidone mesylate [From Geodon] Allergy (Verified 05/05/17 07:18) SHORTNESS OF BREATH aspirin Adverse Reaction (Unknown, Verified 05/05/17 07:18) "heart flutters", swelling Lanacane Allergy (Uncoded 05/05/17 07:18) SHORTNESS OF BREATH Unknown reaction, patient refused to answer. Steroids Allergy (Uncoded 05/05/17 07:18) SHORTNESS OF BREATH Unknown reaction, patient refused to answer. steroids Allergy (Uncoded 05/05/17 07:18) "heart flutters", swelling Home Medications: Home Meds Medication Instructions Recorded Confirmed Enoxaparin [Lovenox] 80 mg SC BID 12/18/16 05/05/17 HYDROmorphone [Dilaudid] 2 mg PO QID 12/18/16 05/05/17 LORazepam [Ativan] 2 mg PO TID 12/18/16 05/05/17 Phenytoin, Extended [Dilantin] 100 mg PO QID 12/18/16 05/05/17 amLODIPine [Norvasc] 10 mg PO BID 12/18/16 05/05/17 Review of Systems - Review of Systems Constitutional: Normal Eyes: Normal ENT: Normal Respiratory: Normal Cardiovascular: Normal Gastrointestinal: Normal Genitourinary Female: Normal Musculoskeletal: Normal Skin: Normal Neurological: Normal Endocrine: Normal Hemo/Lymphatic: Normal Psychiatric: Anxiety. absent: Depression Physical Exam Vital Signs Reviewed: Yes Vital Signs Temp Pulse Resp BP Pulse Ox 05/05/17 07:23 98.8 F 80 16 141/74 98 Temperature: Afebrile Blood Pressure: Normal Pulse: Regular Respiratory Rate: Normal Appearance: Positive for: Well-Appearing, Other (obese) Pain Distress: None Mental Status: Positive for: Alert and Oriented X 3 - Systems Exam Respiratory/Chest: Present: Clear to Auscultation, Good Air Exchange. No: Respiratory Distress, Accessory Muscle Use Cardiovascular: Present: Regular Rate and Rhythm, Normal S1, S2. No: Murmurs Abdomen: Present: Normal Bowel Sounds. No: Tenderness, Distention, Peritoneal Signs Neurological: Present: GCS=15, CN II-XII Intact, Speech Normal, Other (no neuro deficits) Skin: Present: Warm, Dry, Normal Color. No: Rashes Psychiatric: Present: Alert, Oriented x 3, Normal Insight, Normal Concentration , Anxious. No: Depressed Mood Medical Decision Making ED Course and Treatment: 05/05/17 07:46 Impression: 61 year old female with anxiety. Physical examination shows patient appears obese and denies depression; no other acute findings. Plan: -- Ativan -- Reassess and disposition Progress Notes: - Medication Orders Current Medication Orders: Discontinued Medications Lorazepam (Ativan) 1 mg PO ONCE ONE PRN Reason: Protocol Stop: 05/05/17 07:47 Last Admin: 05/05/17 08:02 Dose: 1 mg - Scribe Statement The provider has reviewed the documentation as recorded by the Barber Diaz Provider Scribe Attestation: All medical record entries made by the Mattieibcara were at my direction and personally dictated by me. I have reviewed the chart and agree that the record accurately reflects my personal performance of the history, physical exam, medical decision making, and the department course for this patient. I have also personally directed, reviewed, and agree with the discharge instructions and disposition. Disposition/Present on Arrival - Present on Arrival Any Indicators Present on Arrival: No History of DVT/PE: Yes History of Uncontrolled Diabetes: No Urinary Catheter: No History of Decub. Ulcer: No History Surgical Site Infection Following: None - Disposition Have Diagnosis and Disposition been Completed?: Yes Diagnosis: Anxiety Disposition: HOME/ ROUTINE Disposition Time: 08:10 Patient Plan: Discharge Patient Problems: Current Active Problems Problem Status Onset Anxiety Acute Condition: STABLE Additional Instructions: Keep Appointment with your doctor this morning for refill of prescriptions. Referrals: Avimotoihsan Jackson Req, [Primary Care Provider] - Follow up with primary Forms: [employer] ([place])
== END 2017-05-05 08:24 | disposition home or self-care (01) ==
LOC: ED 07:11
DX: F41.9 Anxiety disorder, unspecified (principal); Z87.891 Personal history of nicotine dependence

== ENCOUNTER 2017-05-25 06:17 | Emergency (ER) | payer OTHER ==
[2017-05-25 06:24] VITALS: BMI 40.8
[2017-05-25 06:31] VITALS: BP 136/88; PULSE 78; RESP 18; TEMP 98.6; O2SAT 99
[2017-05-25 07:04] LABS: EOS # 0.1 (0.0-0.7); EOS % 1.4 % (1.5-5.0); GRAN # 2.45 (1.4-6.5); GRAN % 49.3 % (50.0-68.0); HEMOGLOBIN 12.3 g/dL (12.0-16.0); LYMPH # 1.9 (1.2-3.4); LYMPH % 38.8 % (22.0-35.0); MEAN CELL VOLUME 98.7 fl (80.0-105.0); MEAN CORPUSCULAR HEMOGLOBIN 32.2 pg (25.0-35.0); MEAN CORPUSCULAR HGB CONC 32.6 g/dl (31.0-37.0); MEAN PLATELET VOLUME 10.1 fl (7.0-11.0); MONO # 0.5 (0.1-0.6); MONO % 10.5 % (1.0-6.0); RBC 3.82 10^6/uL (3.5-6.1); RED CELL DISTRIBUTION WIDTH 14.2 % (11.5-14.5)
[2017-05-25 07:12] LABS: ALB/GLOB RATIO 1.1 (1.1-1.8); ALBUMIN 3.7 g/dL (3.0-4.8); ALT/SGPT 47 U/L (7-56); AST/SGOT 35 U/L (14-36); BLOOD UREA NITROGEN 15 mg/dL (7-21); CALCIUM 8.7 mg/dL (8.4-10.5); GFR AFRICAN-AMERICAN > 60; GFR NON-AFRICAN AMERICAN > 60
[2017-05-25 07:23] LABS: TROPONIN I < 0.01 ng/mL
--- NOTE | 2017-05-25 07:24 | ED PDOC ---
Arrival/HPI - General Chief Complaint: Chest Pain Time Seen by Provider: 05/25/17 06:45 Historian: Patient - History of Present Illness Narrative History of Present Illness (Text): 61yoF, who states having mid-sternal chest pain since 10pm yesterday, intermittent, radiation to the left neck/arm and with associated difficulty breathing but no nausea/vomiting/headache/dizziness/abdomen pain/numbness/ tingling/loss of limb function. 05/25/17 07:22 Time/Duration: Other (10 hours) Symptom Onset: Gradual Symptom Course: Intermittent Quality: Aching Severity Level: 2 Activities at Onset: Rest Context: Sitting Past Medical History - Provider Review Nursing Documentation Reviewed: Yes - Travel History Have you recently traveled outside [place] w/in the past 3 mons?: No - Infectious Disease Hx of Infectious Diseases: None - Tetanus Immunization Tetanus Immunization: Up to Date - Reproductive Menopause: Yes - Past Medical History Past Medical History: Non-Contributing - Cardiac Hx Congestive Heart Failure: Yes Hx Hypertension: Yes Hx Peripheral Edema: Yes - Pulmonary Hx Asthma: Yes Hx Bronchitis: Yes Hx Pulmonary Embolism: Yes - Neurological Hx Migraine: Yes Hx Seizures: Yes - HEENT Hx HEENT Disorder: No - Renal Hx Renal Disorder: No - Hematological/Oncological Hx Anemia: Yes - Integumentary Hx Dermatological Disorder: No - Musculoskeletal/Rheumatological Hx Arthritis: Yes - Gastrointestinal Hx Crohn's Disease: Yes Hx Gall Bladder Disease: Yes Hx Gastritis: Yes Hx Gastrointestinal Ulcer: Yes - Genitourinary/Gynecological Hx Sexually Transmitted Diseases: No - Psychiatric Hx Anxiety: Yes Hx Depression: Yes Hx Substance Use: Yes - Past Surgical History Past Surgical History: Non-Contributing - Surgical History Hx Cholecystectomy: Yes - Anesthesia Hx Anesthesia: Yes Hx Anesthesia Reactions: No Hx Malignant Hyperthermia: No - Suicidal Assessment Feels Threatened In Home Enviroment: No Family/Social History - Physician Review Nursing Documentation Reviewed: Yes Family/Social History: No Known Family HX Smoking Status: Former Smoker Hx Alcohol Use: No Hx Substance Use: Yes Substance used: PAIN MEDICATION Hx Substance Use Treatment: No Allergies/Home Meds Allergies/Adverse Reactions: Allergies benzethonium chloride Allergy (Intermediate, Verified 05/05/17 07:18) URTICARIA benzocaine Allergy (Unknown, Verified 05/05/17 07:18) ITCHING broccoli Allergy (Unknown, Verified 05/05/17 07:18) ITCHING ketorolac tromethamine [From Toradol] Allergy (Unknown, Verified 05/05/17 07:18) ANAPHYLAXIS lidocaine Allergy (Unknown, Verified 05/05/17 07:18) ITCHING nitroglycerin Allergy (Unknown, Verified 05/05/17 07:18) URTICARIA pineapple Allergy (Unknown, Verified 05/05/17 07:18) ITCHING trazodone Allergy (Unknown, Verified 05/05/17 07:18) "heart flutters", swelling haloperidol [From Haldol] Allergy (Verified 05/05/17 07:18) VOMITING haloperidol lactate [From Haldol] Allergy (Verified 05/05/17 07:18) VOMITING oxycodone Allergy (Verified 05/05/17 07:18) SHORTNESS OF BREATH Unknown reaction, patient refused to answer. ziprasidone HCl [From Geodon] Allergy (Verified 05/05/17 07:18) SHORTNESS OF BREATH palpitations ziprasidone mesylate [From Geodon] Allergy (Verified 05/05/17 07:18) SHORTNESS OF BREATH aspirin Adverse Reaction (Unknown, Verified 05/05/17 07:18) "heart flutters", swelling Lanacane Allergy (Uncoded 05/05/17 07:18) SHORTNESS OF BREATH Unknown reaction, patient refused to answer. Steroids Allergy (Uncoded 05/05/17 07:18) SHORTNESS OF BREATH Unknown reaction, patient refused to answer. steroids Allergy (Uncoded 05/05/17 07:18) "heart flutters", swelling Home Medications: Home Meds Medication Instructions Recorded Confirmed Enoxaparin [Lovenox] 80 mg SC BID 12/18/16 05/25/17 HYDROmorphone [Dilaudid] 2 mg PO QID 12/18/16 05/25/17 LORazepam [Ativan] 2 mg PO TID 12/18/16 05/25/17 Phenytoin, Extended [Dilantin] 100 mg PO QID 12/18/16 05/25/17 amLODIPine [Norvasc] 10 mg PO BID 12/18/16 05/25/17 Review of Systems - Review of Systems Constitutional: Normal Eyes: Normal ENT: Normal Respiratory: SOB Cardiovascular: Chest Pain Gastrointestinal: Normal Genitourinary Female: Normal Musculoskeletal: Normal Skin: Normal Endocrine: Normal Hemo/Lymphatic: Normal Psychiatric: Normal Physical Exam Vital Signs Reviewed: Yes Vital Signs Temp Pulse Resp BP Pulse Ox 05/25/17 06:24 98.6 F 78 18 136/88 99 Temperature: Afebrile Blood Pressure: Hypertensive Pulse: Regular Respiratory Rate: Normal Appearance: Positive for: Well-Appearing, Non-Toxic, Comfortable Pain Distress: None Mental Status: Positive for: Alert and Oriented X 3 - Systems Exam Head: Present: Atraumatic, Normocephalic Pupils: Present: PERRL Extroacular Muscles: Present: EOMI Conjunctiva: Present: Normal Ears: Present: Normal Mouth: Present: Moist Mucous Membranes Pharnyx: Present: Normal Nose (External): Present: Atraumatic Nose (Internal): Present: Normal Inspection Neck: Present: Normal Range of Motion Respiratory/Chest: Present: Clear to Auscultation, Good Air Exchange Cardiovascular: Present: Regular Rate and Rhythm Abdomen: No: Tenderness, Distention, Normal Bowel Sounds, Peritoneal Signs, Rebound, Guarding, McBurney's Point Tender, Rovsing's Sign Present, Hernias, Feeding Tubes, Ostomy Tubes, Mass/Organomegaly, Scars, Other Back: Present: Normal Inspection Upper Extremity: Present: Normal Inspection Lower Extremity: Present: Normal Inspection Neurological: Present: GCS=15, CN II-XII Intact, Speech Normal, Motor Func Grossly Intact Skin: Present: Warm, Normal Color Psychiatric: Present: Alert, Oriented x 3, Normal Insight, Normal Concentration Medical Decision Making ED Course and Treatment: 61yoF, who states having mid-sternal chest pain since 10pm yesterday, intermittent, radiation to the left neck/arm and with associated difficulty breathing but no nausea/vomiting/headache/dizziness/abdomen pain/numbness/ tingling/loss of limb function. allergy aspirin and so held at this time. signed out to Dr. Anglin to followup labs, CXR, and disposition. 05/25/17 07:24 05/25/17 07:25 - Lab Interpretations Lab Results: 05/25/17 06:30 05/25/17 06:30 Lab Results 05/25/17 06:30: Sodium 141, Potassium 3.7, Chloride 106, Carbon Dioxide 27, Anion Gap 12, BUN 15, Creatinine 0.6 L, Est GFR ( Amer) > 60, Est GFR ( Non-Af Amer) > 60, Random Glucose 95, Calcium 8.7, Total Bilirubin 0.4, AST 35, ALT 47, Alkaline Phosphatase 143 H, Troponin I Pending, Total Protein 7.1, Albumin 3.7, Globulin 3.4, Albumin/Globulin Ratio 1.1 05/25/17 06:30: WBC 5.0, RBC 3.82, Hgb 12.3, Hct 37.7, MCV 98.7, MCH 32.2, MCHC 32.6, RDW 14.2, Plt Count 127, MPV 10.1, Gran % 49.3 L, Lymph % (Auto) 38.8 H, [place] % (Auto) 10.5 H, Eos % (Auto) 1.4 L, Baso % (Auto) 0.0, Gran # 2.45, Lymph # (Auto) 1.9, [place] # (Auto) 0.5, Eos # (Auto) 0.1, Baso # (Auto) 0.00 - RAD Interpretation Radiology Orders: 05/25/17 06:41 CHEST PORTABLE [RAD] Stat 05/25/17 07:19 CHEST PORTABLE [RAD] Stat - EKG Interpretation Interpreted by ED Physician: Yes (NSR, flipped t waves iii, avr, v1) Type: 12 lead EKG Disposition/Present on Arrival - Present on Arrival History of DVT/PE: Yes History of Uncontrolled Diabetes: No Urinary Catheter: No History of Decub. Ulcer: No History Surgical Site Infection Following: None - Disposition Referrals: Jony Sy MD [Primary Care Provider] - Follow up with primary
--- NOTE | 2017-05-25 08:04 | ED PDOC ---
Physical Exam Vital Signs Reviewed: Yes Vital Signs Temp Pulse Resp BP Pulse Ox 05/25/17 06:24 98.6 F 78 18 136/88 99 Temperature: Afebrile Blood Pressure: Normal Pulse: Regular Respiratory Rate: Normal Appearance: Positive for: Well-Appearing, Non-Toxic, Comfortable Pain Distress: None Mental Status: Positive for: Alert and Oriented X 3 - Systems Exam Head: Present: Atraumatic, Normocephalic Pupils: Present: PERRL Extroacular Muscles: Present: EOMI Conjunctiva: Present: Normal Mouth: Present: Moist Mucous Membranes Neck: Present: Normal Range of Motion Respiratory/Chest: Present: Clear to Auscultation, Good Air Exchange. No: Respiratory Distress, Accessory Muscle Use Cardiovascular: Present: Regular Rate and Rhythm, Normal S1, S2. No: Murmurs Abdomen: Present: Normal Bowel Sounds. No: Tenderness, Distention, Peritoneal Signs Back: Present: Normal Inspection Upper Extremity: Present: Normal Inspection. No: Cyanosis, Edema Lower Extremity: Present: Normal Inspection. No: Edema Neurological: Present: GCS=15, CN II-XII Intact, Speech Normal Skin: Present: Warm, Dry, Normal Color. No: Rashes Psychiatric: Present: Alert, Oriented x 3, Normal Insight, Normal Concentration Medical Decision Making ED Course and Treatment: 05/25/17 07:43: Patient endorsed to be by Dr. Carney. Pending reassessment and disposition. 05/25/17 08:02: Patient is requesting Ativan. She states that her symptoms are similar to her anxiety. Ativan PO was given to the patient. She states that she has to leave and does not want to stay for re-evaluation. She notes that she has an appointment tomorrow with her pain management doctor for refills of her Dilaudid. The patient is currently comfortable and in no acute distress. - Lab Interpretations Lab Results: 05/25/17 06:30 05/25/17 06:30 Lab Results 05/25/17 06:30: Sodium 141, Potassium 3.7, Chloride 106, Carbon Dioxide 27, Anion Gap 12, BUN 15, Creatinine 0.6 L, Est GFR ( Amer) > 60, Est GFR ( Non-Af Amer) > 60, Random Glucose 95, Calcium 8.7, Total Bilirubin 0.4, AST 35, ALT 47, Alkaline Phosphatase 143 H, Troponin I < 0.01, Total Protein 7.1, Albumin 3.7, Globulin 3.4, Albumin/Globulin Ratio 1.1 05/25/17 06:30: WBC 5.0, RBC 3.82, Hgb 12.3, Hct 37.7, MCV 98.7, MCH 32.2, MCHC 32.6, RDW 14.2, Plt Count 127, MPV 10.1, Gran % 49.3 L, Lymph % (Auto) 38.8 H, [place] % (Auto) 10.5 H, Eos % (Auto) 1.4 L, Baso % (Auto) 0.0, Gran # 2.45, Lymph # (Auto) 1.9, [place] # (Auto) 0.5, Eos # (Auto) 0.1, Baso # (Auto) 0.00 - RAD Interpretation Radiology Orders: 05/25/17 06:41 CHEST PORTABLE [RAD] Stat - Medication Orders Current Medication Orders: Discontinued Medications Lorazepam (Ativan) 1 mg PO ONCE ONE PRN Reason: Protocol Stop: 05/25/17 07:36 Last Admin: 05/25/17 07:45 Dose: 1 mg - Scribe Statement The provider has reviewed the documentation as recorded by the Barber Ahumada Provider Scribe Attestation: All medical record entries made by the Mattieibcara were at my direction and personally dictated by me. I have reviewed the chart and agree that the record accurately reflects my personal performance of the history, physical exam, medical decision making, and the department course for this patient. I have also personally directed, reviewed, and agree with the discharge instructions and disposition. Disposition/Present on Arrival - Present on Arrival Any Indicators Present on Arrival: Yes History of DVT/PE: Yes History of Uncontrolled Diabetes: No Urinary Catheter: No History of Decub. Ulcer: No History Surgical Site Infection Following: None - Disposition Have Diagnosis and Disposition been Completed?: Yes Diagnosis: Chest pain Disposition: HOME/ ROUTINE Disposition Time: 07:46 Patient Plan: Discharge Condition: IMPROVED Discharge Instructions (ExitCare): Chest Pain (ED) Additional Instructions: Ms Abreu, thank you for letting us take care of you today. Your provider was Dr. Anglin. You were treated for Chest Pain. The emergency medical care you received today was directed at your acute symptoms. If you were prescribed any medication, please fill it and take as directed. It may take several days for your symptoms to resolve. Return to the Emergency Department if your symptoms worsen, do not improve, or if you have any other problems. Please contact your doctor or call one of the physicians/clinics you have been referred to that are listed on the Patient Visit Information form that is included in your discharge packet. Bring any paperwork you were given at discharge with you along with any medications you are taking to your follow up visit. Our treatment cannot replace ongoing medical care by a primary care provider (PCP) outside of the emergency department. Thank you for allowing the [facility] team to be part of your care today. If you had an X-Ray or CT scan: A Radiologist will review the ED reading if any change in treatment is needed we will contact you. If you had a blood, urine, or wound culture: It will take several days for the results, if any change in treatment is needed we will contact you. If you had an STI test: It will take 48 hours for the results. Please call after 1 week if you have not heard back. Referrals: Jony Sy MD [Primary Care Provider] - Follow up with primary Forms: [employer] ([place])
[2017-05-25 10:29] LABS: MAGNESIUM 2.1 mg/dL (1.7-2.2)
[2017-05-25 10:34] LABS: TROPONIN I < 0.01 ng/mL
--- NOTE | 2017-05-25 10:39 | RAD ---
HISTORY: Chest pain. COMPARISON: 04/25/2017. FINDINGS: LUNGS: No active pulmonary disease. PLEURA: No significant pleural effusion identified, no pneumothorax apparent. CARDIOVASCULAR: No radiographic findings to suggest acute or significant cardiovascular disease. OSSEOUS STRUCTURES: No significant abnormalities. VISUALIZED UPPER ABDOMEN: Normal. OTHER FINDINGS: None. IMPRESSION: No active disease. No significant interval change compared to the prior examination(s).
[2017-05-25 10:40] LABS: CK-MB 2.4 ng/mL (0.0-3.6)
--- NOTE | 2017-05-25 21:34 | CARD ---
APPROVED REPORT EKG Measurement Heart [id number] <Conclusion> Normal sinus rhythm Possible Left atrial enlargement Left ventricular hypertrophy Abnormal ECG
== END 2017-05-25 07:47 | disposition home or self-care (01) ==
LOC: ED 06:17
DX: R07.9 Chest pain, unspecified (principal); I10 Essential (primary) hypertension; D64.9 Anemia, unspecified; Z87.891 Personal history of nicotine dependence

== ENCOUNTER 2017-05-27 04:50 | Emergency (ER) | payer OTHER ==
[2017-05-27 04:51] VITALS: BMI 40.8
--- NOTE | 2017-05-27 05:35 | ED PDOC ---
Arrival/HPI - General Chief Complaint: Seizure Time Seen by Provider: 05/27/17 05:10 Historian: Patient - History of Present Illness Narrative History of Present Illness (Text): 05/27/17 05:32 61 year old female, whose past medical history includes seizure disorder, presents to the emergency department complaining of unwitnessed seizure episode tonight. Patient states she had a seizure because she woke up on the floor. This has happened to her before. Patient states she missed her dose of Dilantin and would like a Dilantin level check. Patient denies any fever, chills, chest pain, shortness of breath, nausea, vomiting, diarrhea, urinary symptoms, back pain, neck pain, headache, dizziness, or any other complaints. Time/Duration: Other (tonight ) Symptom Onset: Sudden Activities at Onset: Light Context: Home Past Medical History - Provider Review Nursing Documentation Reviewed: Yes - Infectious Disease Hx of Infectious Diseases: None - Tetanus Immunization Tetanus Immunization: Up to Date - Past Medical History Past Medical History: Non-Contributing - Cardiac Hx Congestive Heart Failure: Yes Hx Hypertension: Yes Hx Peripheral Edema: Yes - Pulmonary Hx Asthma: Yes Hx Bronchitis: Yes Hx Pulmonary Embolism: Yes - Neurological Hx Migraine: Yes Hx Seizures: Yes - HEENT Hx HEENT Disorder: No - Renal Hx Renal Disorder: No - Hematological/Oncological Hx Anemia: Yes - Integumentary Hx Dermatological Disorder: No - Musculoskeletal/Rheumatological Hx Arthritis: Yes - Gastrointestinal Hx Crohn's Disease: Yes Hx Gall Bladder Disease: Yes Hx Gastritis: Yes Hx Gastrointestinal Ulcer: Yes - Genitourinary/Gynecological Hx Sexually Transmitted Diseases: No - Psychiatric Hx Anxiety: Yes Hx Depression: Yes Hx Substance Use: Yes - Past Surgical History Past Surgical History: Non-Contributing - Surgical History Hx Cholecystectomy: Yes - Anesthesia Hx Anesthesia: Yes Hx Anesthesia Reactions: No Hx Malignant Hyperthermia: No - Suicidal Assessment Feels Threatened In Home Enviroment: No Family/Social History - Physician Review Nursing Documentation Reviewed: Yes Family/Social History: No Known Family HX Smoking Status: Former Smoker Hx Alcohol Use: No Hx Substance Use: Yes Substance used: PAIN MEDICATION Hx Substance Use Treatment: No Allergies/Home Meds Allergies/Adverse Reactions: Allergies benzethonium chloride Allergy (Intermediate, Verified 05/05/17 07:18) URTICARIA benzocaine Allergy (Unknown, Verified 05/05/17 07:18) ITCHING broccoli Allergy (Unknown, Verified 05/05/17 07:18) ITCHING ketorolac tromethamine [From Toradol] Allergy (Unknown, Verified 05/05/17 07:18) ANAPHYLAXIS lidocaine Allergy (Unknown, Verified 05/05/17 07:18) ITCHING nitroglycerin Allergy (Unknown, Verified 05/05/17 07:18) URTICARIA pineapple Allergy (Unknown, Verified 05/05/17 07:18) ITCHING trazodone Allergy (Unknown, Verified 05/05/17 07:18) "heart flutters", swelling haloperidol [From Haldol] Allergy (Verified 05/05/17 07:18) VOMITING haloperidol lactate [From Haldol] Allergy (Verified 05/05/17 07:18) VOMITING oxycodone Allergy (Verified 05/05/17 07:18) SHORTNESS OF BREATH Unknown reaction, patient refused to answer. ziprasidone HCl [From Geodon] Allergy (Verified 05/05/17 07:18) SHORTNESS OF BREATH palpitations ziprasidone mesylate [From Geodon] Allergy (Verified 05/05/17 07:18) SHORTNESS OF BREATH aspirin Adverse Reaction (Unknown, Verified 05/05/17 07:18) "heart flutters", swelling Lanacane Allergy (Uncoded 05/05/17 07:18) SHORTNESS OF BREATH Unknown reaction, patient refused to answer. Steroids Allergy (Uncoded 05/05/17 07:18) SHORTNESS OF BREATH Unknown reaction, patient refused to answer. steroids Allergy (Uncoded 05/05/17 07:18) "heart flutters", swelling Home Medications: Home Meds Medication Instructions Recorded Confirmed Enoxaparin [Lovenox] 80 mg SC BID 12/18/16 05/27/17 HYDROmorphone [Dilaudid] 2 mg PO QID 12/18/16 05/27/17 LORazepam [Ativan] 2 mg PO TID 12/18/16 05/27/17 Phenytoin, Extended [Dilantin] 100 mg PO QID 12/18/16 05/27/17 amLODIPine [Norvasc] 10 mg PO BID 12/18/16 05/27/17 Review of Systems - Physician Review All systems were reviewed & negative as marked: Yes - Review of Systems Constitutional: absent: Fevers, Other (Chills) Respiratory: absent: SOB Cardiovascular: absent: Chest Pain Gastrointestinal: absent: Diarrhea, Nausea, Vomiting Genitourinary Female: absent: Dysuria, Frequency, Hematuria Musculoskeletal: absent: Back Pain, Neck Pain Neurological: Seizure. absent: Headache, Dizziness Physical Exam Vital Signs Reviewed: Yes Appearance: Positive for: Well-Appearing, Non-Toxic, Comfortable Pain Distress: None Mental Status: Positive for: Alert and Oriented X 3 - Systems Exam Head: Present: Atraumatic, Normocephalic Pupils: Present: PERRL Extroacular Muscles: Present: EOMI Conjunctiva: Present: Normal Mouth: Present: Moist Mucous Membranes Neck: Present: Normal Range of Motion. No: Meningeal Signs Respiratory/Chest: Present: Clear to Auscultation, Good Air Exchange. No: Respiratory Distress, Accessory Muscle Use Cardiovascular: Present: Regular Rate and Rhythm, Normal S1, S2. No: Murmurs Abdomen: Present: Normal Bowel Sounds. No: Tenderness, Distention, Peritoneal Signs Back: Present: Normal Inspection Upper Extremity: Present: Normal Inspection. No: Cyanosis, Edema Lower Extremity: Present: Normal Inspection. No: Edema Neurological: Present: GCS=15, CN II-XII Intact, Speech Normal Skin: Present: Warm, Dry, Normal Color. No: Rashes Psychiatric: Present: Alert, Oriented x 3, Normal Insight, Normal Concentration Medical Decision Making ED Course and Treatment: 05/27/17 05:22 Impression: 61 year old female presents s/p unwitnessed seizure. Patient reports she woke up on the floor. This has happened to her before. Plan: -- Dilantin -- Reassess and disposition Prior Visits: Notes and results from previous visits were reviewed. Patient was last seen in the emergency department on Progress Notes: - Transfer of Care Patient signed out to Dr:: Doni Pending Labs:: Dilantin level/final disposition Disposition/Present on Arrival - Present on Arrival Any Indicators Present on Arrival: No History of DVT/PE: Yes History of Uncontrolled Diabetes: No Urinary Catheter: No History of Decub. Ulcer: No History Surgical Site Infection Following: None - Disposition Have Diagnosis and Disposition been Completed?: No Diagnosis: Seizure Disposition Time: 07:00 Condition: STABLE Forms: [employer] (Frisian)
--- NOTE | 2017-05-27 07:22 | ED PDOC ---
Physical Exam Vital Signs Reviewed: Yes Appearance: Positive for: Well-Appearing, Non-Toxic, Comfortable Pain Distress: None Mental Status: Positive for: Alert and Oriented X 3 Medical Decision Making ED Course and Treatment: 05/27/17 07:22 Case signed out to me by Dr. Wilkins. Pending dilantin level and final disposition. - Lab Interpretations Lab Results: Lab Results 05/27/17 06:00: Phenytoin 12 I have reviewed the lab results: Yes - Medication Orders Current Medication Orders: Discontinued Medications Lorazepam (Ativan) 1 mg PO ONCE STA Stop: 05/27/17 06:59 Last Admin: 05/27/17 07:02 Dose: 1 mg - Scribe Statement The provider has reviewed the documentation as recorded by the Barber Murry Provider Scribe Attestation: All medical record entries made by the Scribe were at my direction and personally dictated by me. I have reviewed the chart and agree that the record accurately reflects my personal performance of the history, physical exam, medical decision making, and the department course for this patient. I have also personally directed, reviewed, and agree with the discharge instructions and disposition. Disposition/Present on Arrival - Present on Arrival Any Indicators Present on Arrival: No History of DVT/PE: Yes History of Uncontrolled Diabetes: No Urinary Catheter: No History of Decub. Ulcer: No History Surgical Site Infection Following: None - Disposition Have Diagnosis and Disposition been Completed?: Yes Diagnosis: Seizure Disposition: HOME/ ROUTINE Disposition Time: 09:30 Patient Plan: Discharge Patient Problems: Current Active Problems Problem Status Onset Seizure Acute Condition: STABLE Additional Instructions: continue current medications Forms: [employer] (Macedonian)
[2017-05-27 09:38] VITALS: RESP 18; TEMP 98.2; O2SAT 98
[2017-05-27 09:42] VITALS: BP 131/77; PULSE 76
== END 2017-05-27 09:44 | disposition home or self-care (01) ==
LOC: ED 04:50
DX: G40.909 Epilepsy, unspecified, not intractable, without status epilepticus (principal)

== ENCOUNTER 2017-06-01 20:35 | Emergency (ER) | payer OTHER ==
[2017-06-01 20:57] VITALS: BMI 40.4
--- NOTE | 2017-06-01 21:13 | ED PDOC ---
Arrival/HPI - General Chief Complaint: Anxiety Time Seen by Provider: 06/01/17 20:48 Historian: Patient - History of Present Illness Narrative History of Present Illness (Text): 06/01/17 21:13 Justina Abreu is a 61 year old female whose past medical history includes COPD , asthma, anemia, anxiety and seizures, presents to the emergency department complaining of anxiety. Patient states she feels anxious tonight and ran out of her Ativan. Patient states she will see her PMD tomorrow for refill, but is requesting Ativan 2 mg PO for tonight. Patient denies any fever, chills, chest pain, shortness of breath, nausea, vomiting, diarrhea, urinary symptoms, back pain, neck pain, headache, dizziness, suicidal/homicidal ideation or any other complaints. Symptom Onset: Gradual Symptom Course: Unchanged Activities at Onset: Light Context: Home Past Medical History - Provider Review Nursing Documentation Reviewed: Yes - Infectious Disease Hx of Infectious Diseases: None - Tetanus Immunization Tetanus Immunization: Up to Date - Past Medical History Past Medical History: Non-Contributing - Cardiac Hx Congestive Heart Failure: Yes Hx Hypertension: Yes Hx Peripheral Edema: Yes - Pulmonary Hx Asthma: Yes Hx Bronchitis: Yes Hx Pulmonary Embolism: Yes - Neurological Hx Migraine: Yes Hx Seizures: Yes - HEENT Hx HEENT Disorder: No - Renal Hx Renal Disorder: No - Hematological/Oncological Hx Anemia: Yes - Integumentary Hx Dermatological Disorder: No - Musculoskeletal/Rheumatological Hx Arthritis: Yes - Gastrointestinal Hx Crohn's Disease: Yes Hx Gall Bladder Disease: Yes Hx Gastritis: Yes Hx Gastrointestinal Ulcer: Yes - Genitourinary/Gynecological Hx Sexually Transmitted Diseases: No - Psychiatric Hx Anxiety: Yes Hx Depression: Yes Hx Substance Use: Yes - Past Surgical History Past Surgical History: Non-Contributing - Surgical History Hx Cholecystectomy: Yes - Anesthesia Hx Anesthesia: Yes Hx Anesthesia Reactions: No Hx Malignant Hyperthermia: No - Suicidal Assessment Feels Threatened In Home Enviroment: No Family/Social History - Physician Review Nursing Documentation Reviewed: Yes Family/Social History: Unknown Family HX Smoking Status: Former Smoker Hx Alcohol Use: No Hx Substance Use: Yes Substance used: PAIN MEDICATION Hx Substance Use Treatment: No Allergies/Home Meds Allergies/Adverse Reactions: Allergies benzethonium chloride Allergy (Intermediate, Verified 05/05/17 07:18) URTICARIA benzocaine Allergy (Unknown, Verified 05/05/17 07:18) ITCHING broccoli Allergy (Unknown, Verified 05/05/17 07:18) ITCHING ketorolac tromethamine [From Toradol] Allergy (Unknown, Verified 05/05/17 07:18) ANAPHYLAXIS lidocaine Allergy (Unknown, Verified 05/05/17 07:18) ITCHING nitroglycerin Allergy (Unknown, Verified 05/05/17 07:18) URTICARIA pineapple Allergy (Unknown, Verified 05/05/17 07:18) ITCHING trazodone Allergy (Unknown, Verified 05/05/17 07:18) "heart flutters", swelling haloperidol [From Haldol] Allergy (Verified 05/05/17 07:18) VOMITING haloperidol lactate [From Haldol] Allergy (Verified 05/05/17 07:18) VOMITING oxycodone Allergy (Verified 05/05/17 07:18) SHORTNESS OF BREATH Unknown reaction, patient refused to answer. ziprasidone HCl [From Geodon] Allergy (Verified 05/05/17 07:18) SHORTNESS OF BREATH palpitations ziprasidone mesylate [From Geodon] Allergy (Verified 05/05/17 07:18) SHORTNESS OF BREATH aspirin Adverse Reaction (Unknown, Verified 05/05/17 07:18) "heart flutters", swelling Lanacane Allergy (Uncoded 05/05/17 07:18) SHORTNESS OF BREATH Unknown reaction, patient refused to answer. Steroids Allergy (Uncoded 05/05/17 07:18) SHORTNESS OF BREATH Unknown reaction, patient refused to answer. steroids Allergy (Uncoded 05/05/17 07:18) "heart flutters", swelling Home Medications: Home Meds Medication Instructions Recorded Confirmed Enoxaparin [Lovenox] 80 mg SC BID 12/18/16 05/27/17 HYDROmorphone [Dilaudid] 2 mg PO QID 12/18/16 05/27/17 LORazepam [Ativan] 2 mg PO TID 12/18/16 05/27/17 Phenytoin, Extended [Dilantin] 100 mg PO QID 12/18/16 05/27/17 amLODIPine [Norvasc] 10 mg PO BID 12/18/1618 Review of Systems - Physician Review All systems were reviewed & negative as marked: Yes - Review of Systems Constitutional: Normal. absent: Fevers Eyes: Normal ENT: Normal Respiratory: Normal. absent: SOB, Cough Cardiovascular: Normal. absent: Chest Pain Gastrointestinal: Normal. absent: Abdominal Pain, Diarrhea, Nausea, Vomiting Genitourinary Female: Normal. absent: Dysuria, Frequency, Hematuria, Urine Output Changes Musculoskeletal: Normal. absent: Back Pain Skin: Normal. absent: Rash Neurological: Normal. absent: Headache, Dizziness Endocrine: Normal Hemo/Lymphatic: Normal Psychiatric: Anxiety Physical Exam Vital Signs Reviewed: Yes Vital Signs Temp Pulse Resp BP Pulse Ox 06/01/17 21:25 98.2 F 76 17 159/70 H 98 Temperature: Afebrile Blood Pressure: Normal Pulse: Regular Respiratory Rate: Normal Appearance: Positive for: Well-Appearing, Non-Toxic, Comfortable Pain Distress: None Mental Status: Positive for: Alert and Oriented X 3 - Systems Exam Head: Present: Atraumatic, Normocephalic Pupils: Present: PERRL Extroacular Muscles: Present: EOMI Conjunctiva: Present: Normal Mouth: Present: Moist Mucous Membranes Neck: Present: Normal Range of Motion. No: Meningeal Signs, MIDLINE TENDERNESS , Paraspinal Tenderness Respiratory/Chest: Present: Clear to Auscultation, Good Air Exchange. No: Respiratory Distress, Accessory Muscle Use Cardiovascular: Present: Regular Rate and Rhythm, Normal S1, S2. No: Murmurs Abdomen: Present: Normal Bowel Sounds. No: Tenderness, Distention, Peritoneal Signs Back: Present: Normal Inspection Upper Extremity: Present: Normal Inspection. No: Cyanosis, Edema Lower Extremity: Present: Normal Inspection. No: Edema Neurological: Present: GCS=15, CN II-XII Intact, Speech Normal Skin: Present: Warm, Dry, Normal Color. No: Rashes Psychiatric: Present: Alert, Oriented x 3, Normal Insight, Normal Concentration Medical Decision Making ED Course and Treatment: 06/01/17 21:13 Impression: 61 year old female complaining of anxiety, requesting Ativan. Plan: -- EKG -- Ativan -- Reassess and disposition Prior Visits: Notes and results from previous visits were reviewed. Pt well known to ER staff, seen on multiple occasions for similar symptoms. Progress Notes: Reviewed EKG, NSR at 86 bpm. T wave changes inferiorly. No acute change from previous EKG on 05/25/2017. 06/01/17 21:15 On re-evaluation, patient is in no acute distress. Patient in agreement with plan to be discharged home. Patient is stable for discharge. Patient was instructed to follow up with physician or return if symptoms worsen or new concerning symptoms arise. - EKG Interpretation Interpreted by ED Physician: Yes Type: 12 lead EKG - Medication Orders Current Medication Orders: Discontinued Medications Lorazepam (Ativan) 2 mg PO ONCE STA Stop: 06/01/17 21:14 Last Admin: 06/01/17 21:35 Dose: 2 mg - Scribe Statement Alyson Echeverria All medical record entries made by the Scribe were at my direction and personally dictated by me. I have reviewed the chart and agree that the record accurately reflects my personal performance of the history, physical exam, medical decision making, and the department course for this patient. I have also personally directed, reviewed, and agree with the discharge instructions and disposition. Disposition/Present on Arrival - Present on Arrival Any Indicators Present on Arrival: No History of DVT/PE: Yes History of Uncontrolled Diabetes: No Urinary Catheter: No History of Decub. Ulcer: No History Surgical Site Infection Following: None - Disposition Have Diagnosis and Disposition been Completed?: Yes Diagnosis: Anxiety Disposition Time: 21:15 Patient Plan: Discharge Patient Problems: Current Active Problems Problem Status Onset Anxiety Acute Condition: GOOD Additional Instructions: Follow up with your doctor tommorrow. Forms: [employer] (Maori)
[2017-06-01 21:27] VITALS: RESP 17; TEMP 98.2; O2SAT 98
[2017-06-01 23:56] VITALS: BP 148/82; PULSE 72
--- NOTE | 2017-06-02 10:10 | CARD ---
APPROVED REPORT EKG Measurement Heart [id number] <Conclusion> Normal sinus rhythm Possible Left atrial enlargement No change
== END 2017-06-01 21:40 | disposition home or self-care (01) ==
LOC: ED 20:35
DX: F41.9 Anxiety disorder, unspecified (principal); I50.9 Heart failure, unspecified; I10 Essential (primary) hypertension; Z87.891 Personal history of nicotine dependence

== ENCOUNTER 2017-06-14 12:44 | Emergency (ER) | payer OTHER ==
[2017-06-14 13:00] VITALS: BP 173/80
[2017-06-14 13:08] VITALS: BMI 31.1
[2017-06-14 13:10] VITALS: RESP 18; TEMP 97.9; O2SAT 100
--- NOTE | 2017-06-14 13:42 | RAD ---
HISTORY: chest pain COMPARISON: 05/25/2017 FINDINGS: LUNGS: No active pulmonary disease. PLEURA: No significant pleural effusion identified, no pneumothorax apparent. CARDIOVASCULAR: Normal. OSSEOUS STRUCTURES: No significant abnormalities. VISUALIZED UPPER ABDOMEN: Normal. OTHER FINDINGS: None. IMPRESSION: No active disease.
[2017-06-14 14:08] VITALS: PULSE 88
--- NOTE | 2017-06-14 14:23 | ED PDOC ---
Addendum entered and electronically signed by Corbin Mercer DO 06/14/17 15:41 : Addendum Addendum: Patient was combative and yelling during the time of discharged. yelled obscene profanities at the nurses. During this time. patient admitted that she ran out of pain medication and was not willing to travel to get new pain medication. Recommended to follow up with pain management, heme/onc team. Original Note: Arrival/HPI - General Historian: Patient - History of Present Illness Time/Duration: Prior to Arrival, 1 hour Severity Level: 7 Activities at Onset: Rest <Corbin Mercer - Last Filed: 06/14/17 15:38> <Cj Quezada DO - Last Filed: 06/14/17 22:28> - General Chief Complaint: Chest Pain Time Seen by Provider: 06/14/17 13:10 - History of Present Illness Narrative History of Present Illness (Text): 06/14/17 14:00 61F w/ extensive PMH including COPD, asthma, anemia, anxiety and seizures presents to [facility] ED via ambulance w/ hx of sharp chest pain that radiates to the right arm to the left breast that is worse w/ deep inspiration. No associated limb numbness/ weakness, fevers, chills, nausea, vomiting, diarrhea Of note: patient had a recent Cardiac cath that showed patent coronary vessels. 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 [facility] (Corbin Mercer) Past Medical History - Provider Review Nursing Documentation Reviewed: Yes - Infectious Disease Hx of Infectious Diseases: None - Tetanus Immunization Tetanus Immunization: Up to Date - Past Medical History Past Medical History: Non-Contributing - Cardiac Hx Congestive Heart Failure: Yes Hx Hypertension: Yes Hx Peripheral Edema: Yes - Pulmonary Hx Asthma: Yes Hx Bronchitis: Yes Hx Pulmonary Embolism: Yes - Neurological Hx Migraine: Yes Hx Seizures: Yes - HEENT Hx HEENT Disorder: No - Renal Hx Renal Disorder: No - Hematological/Oncological Hx Anemia: Yes - Integumentary Hx Dermatological Disorder: No - Musculoskeletal/Rheumatological Hx Arthritis: Yes - Gastrointestinal Hx Crohn's Disease: Yes Hx Gall Bladder Disease: Yes Hx Gastritis: Yes Hx Gastrointestinal Ulcer: Yes - Genitourinary/Gynecological Hx Sexually Transmitted Diseases: No - Psychiatric Hx Anxiety: Yes Hx Depression: Yes Hx Substance Use: Yes - Past Surgical History Past Surgical History: Non-Contributing - Surgical History Hx Cholecystectomy: Yes - Anesthesia Hx Anesthesia: Yes Hx Anesthesia Reactions: No Hx Malignant Hyperthermia: No - Suicidal Assessment Feels Threatened In Home Enviroment: No <Corbin Mercer - Last Filed: 06/14/17 15:38> Family/Social History - Physician Review Nursing Documentation Reviewed: Yes Family/Social History: Unknown Family HX Smoking Status: Former Smoker Hx Alcohol Use: No Hx Substance Use: Yes Substance used: PAIN MEDICATION Hx Substance Use Treatment: No <Corbin Mercer - Last Filed: 06/14/17 15:38> Allergies/Home Meds <Corbin Mercer - Last Filed: 06/14/17 15:38> <Cj Quezada DO - Last Filed: 06/14/17 22:28> Allergies/Adverse Reactions: Allergies benzethonium chloride Allergy (Intermediate, Verified 05/05/17 07:18) URTICARIA benzocaine Allergy (Unknown, Verified 05/05/17 07:18) ITCHING broccoli Allergy (Unknown, Verified 05/05/17 07:18) ITCHING ketorolac tromethamine [From Toradol] Allergy (Unknown, Verified 05/05/17 07:18) ANAPHYLAXIS lidocaine Allergy (Unknown, Verified 05/05/17 07:18) ITCHING nitroglycerin Allergy (Unknown, Verified 05/05/17 07:18) URTICARIA pineapple Allergy (Unknown, Verified 05/05/17 07:18) ITCHING trazodone Allergy (Unknown, Verified 05/05/17 07:18) "heart flutters", swelling haloperidol [From Haldol] Allergy (Verified 05/05/17 07:18) VOMITING haloperidol lactate [From Haldol] Allergy (Verified 05/05/17 07:18) VOMITING oxycodone Allergy (Verified 05/05/17 07:18) SHORTNESS OF BREATH Unknown reaction, patient refused to answer. ziprasidone HCl [From Geodon] Allergy (Verified 05/05/17 07:18) SHORTNESS OF BREATH palpitations ziprasidone mesylate [From Geodon] Allergy (Verified 05/05/17 07:18) SHORTNESS OF BREATH aspirin Adverse Reaction (Unknown, Verified 05/05/17 07:18) "heart flutters", swelling Lanacane Allergy (Uncoded 05/05/17 07:18) SHORTNESS OF BREATH Unknown reaction, patient refused to answer. Steroids Allergy (Uncoded 05/05/17 07:18) SHORTNESS OF BREATH Unknown reaction, patient refused to answer. steroids Allergy (Uncoded 05/05/17 07:18) "heart flutters", swelling Home Medications: Home Meds Medication Instructions Recorded Confirmed Enoxaparin [Lovenox] 80 mg SC BID 12/18/16 06/14/17 HYDROmorphone [Dilaudid] 2 mg PO QID 12/18/16 06/14/17 LORazepam [Ativan] 2 mg PO TID 12/18/16 06/14/17 Review of Systems - Physician Review All systems were reviewed & negative as marked: Yes - Review of Systems Systems not reviewed;Unavailable: Acuity of Condition ENT: Normal Respiratory: SOB Cardiovascular: Chest Pain. absent: Palpitations Skin: Normal Neurological: Normal Psychiatric: Normal <Corbin Mercer - Last Filed: 06/14/17 15:38> Physical Exam Vital Signs Reviewed: Yes Temperature: Afebrile Blood Pressure: Hypertensive Pulse: Regular Respiratory Rate: Normal Appearance: Positive for: Comfortable Mental Status: Positive for: Alert and Oriented X 3 - Systems Exam Head: Present: Atraumatic Respiratory/Chest: Present: Clear to Auscultation, Respiratory Distress. No: Accessory Muscle Use Cardiovascular: Present: Normal S1, S2. No: Regular Rate and Rhythm Abdomen: Present: Normal Bowel Sounds, Other (horizontal incisions; C/D/I wellhealed). No: Peritoneal Signs Upper Extremity: Present: Edema Lower Extremity: No: CALF TENDERNESS Neurological: Present: GCS=15 Skin: Present: Warm Psychiatric: Present: Oriented x 3 <Corbin Mercer - Last Filed: 06/14/17 15:38> Vital Signs Temp Pulse Pulse Resp BP Pulse Ox 06/14/17 13:20 88 06/14/17 13:07 97.9 F 92 H 18 173/80 H 100 06/14/17 12:54 98.0 F 99 H 16 173/80 H 99 Medical Decision Making - Lab Interpretations I have reviewed the lab results: Yes Interpretation: No sign. chg./baseline - EKG Interpretation Type: 12 lead EKG Comparison: Similar to previous EKG <Corbin Mercer - Last Filed: 06/14/17 15:38> <Pilar DOCj - Last Filed: 06/14/17 22:28> ED Course and Treatment: EKG CXR Labs including CBC, CMP, Trops patient continuing to ask for Morphine (Corbin Mercer) - Lab Interpretations Narrative Lab Interpretation (Text): 06/14/17 15:01 Labs reviewed: Trops WNL CBC and Chem baseline for patient (Corbin Mercer) Lab Results: 06/14/17 14:00 06/14/17 14:00 Lab Results 06/14/17 14:00: Sodium 145, Potassium 3.9, Chloride 109 H, Carbon Dioxide 27, Anion Gap 13, BUN 9, Creatinine 0.6 L, Est GFR ( Amer) > 60, Est GFR (Non -Af Amer) > 60, Random Glucose 108, Calcium 8.8, Magnesium 2.0, Total Bilirubin 0.2, AST 77 H D, ALT 111 H, Alkaline Phosphatase 160 H, Lactate Dehydrogenase 994 H, Total Creatine Kinase 169, Troponin I < 0.01, Total Protein 7.1, Albumin 3.8, Globulin 3.4, Albumin/Globulin Ratio 1.1 06/14/17 14:00: WBC 5.0, RBC 4.15, Hgb 13.5, Hct 41.4, MCV 99.8, MCH 32.5, MCHC 32.6, RDW 14.2, Plt Count 138, MPV 10.7, Gran % 58.9, Lymph % (Auto) 31.5, Stoddard % (Auto) 8.6 H, Eos % (Auto) 0.8 L, Baso % (Auto) 0.2, Gran # 2.96, Lymph # ( Auto) 1.6, Stoddard # (Auto) 0.4, Eos # (Auto) 0.0, Baso # (Auto) 0.01 - RAD Interpretation Radiology Orders: 06/14/17 13:22 CHEST PORTABLE [RAD] Stat - EKG Interpretation EKG Interpretation (Text): Normal Sinus Rhythm Normal EKG with no obvious signs of infarct (AreliRomi wrightCorbin) - PA / NURSING CONSULTANT / Resident Statement ROSALVA has reviewed & agrees with the documentation as recorded. ROSALVA has examined the patient and agrees with the treatment plan. <Cj Quezada DO - Last Filed: 06/14/17 22:28> Disposition/Present on Arrival - Present on Arrival Any Indicators Present on Arrival: No History of DVT/PE: Yes History of Uncontrolled Diabetes: No Urinary Catheter: No History of Decub. Ulcer: No History Surgical Site Infection Following: None - Disposition Have Diagnosis and Disposition been Completed?: Yes Disposition Time: 15:02 <Corbin Mercer - Last Filed: 06/14/17 15:38> - Disposition Disposition Time: 14:50 <Cj Quezada DO - Last Filed: 06/14/17 22:28> - Disposition Diagnosis: Non-cardiac chest pain Disposition: HOME/ ROUTINE Condition: GOOD Discharge Instructions (ExitCare): Chest Pain (ED) Additional Instructions: Thank you for letting us take care of you today. The emergency medical care you received today was directed at your acute symptoms. If you were prescribed any medication, please fill it and take as directed. It may take several days for your symptoms to resolve. Return to the Emergency Department if your symptoms worsen, do not improve, or if you have any other problems. Please contact your doctor or call one of the physicians/clinics you have been referred to that are listed on the Patient Visit Information form that is included in your discharge packet. Bring any paperwork you were given at discharge with you along with any medications you are taking to your follow up visit. Our treatment cannot replace ongoing medical care by a primary care provider (PCP) outside of the emergency department. Thank you for allowing the [facility] team to be part of your care today. Follow up with your primary doctor this week for re-evaluation and further management. Referrals: Jony Sy MD [Primary Care Provider] - Follow up with primary Forms: [employer] (Congolese) - Notes Notes (Text): 06/14/17 15:03 Recommend follow up with Primary and Heme/onc at [facility] (Corbin Mercer)
[2017-06-14 14:28] LABS: BASO # 0.01 K/mm3 (0.0-2.0); BASO % 0.2 % (0.0-3.0); EOS % 0.8 % (1.5-5.0); GRAN # 2.96 (1.4-6.5); GRAN % 58.9 % (50.0-68.0); HEMOGLOBIN 13.5 g/dL (12.0-16.0); LYMPH # 1.6 (1.2-3.4); LYMPH % 31.5 % (22.0-35.0); MEAN CELL VOLUME 99.8 fl (80.0-105.0); MEAN CORPUSCULAR HEMOGLOBIN 32.5 pg (25.0-35.0); MEAN CORPUSCULAR HGB CONC 32.6 g/dl (31.0-37.0); MEAN PLATELET VOLUME 10.7 fl (7.0-11.0); MONO # 0.4 (0.1-0.6); MONO % 8.6 % (1.0-6.0); RBC 4.15 10^6/uL (3.5-6.1); RED CELL DISTRIBUTION WIDTH 14.2 % (11.5-14.5)
[2017-06-14 14:44] LABS: TROPONIN I < 0.01 ng/mL
[2017-06-14 14:48] LABS: ALB/GLOB RATIO 1.1 (1.1-1.8); ALBUMIN 3.8 g/dL (3.0-4.8); ALT/SGPT 111 U/L (7-56); AST/SGOT 77 U/L (14-36); BLOOD UREA NITROGEN 9 mg/dL (7-21); CALCIUM 8.8 mg/dL (8.4-10.5); GFR AFRICAN-AMERICAN > 60; GFR NON-AFRICAN AMERICAN > 60
--- NOTE | 2017-06-15 11:53 | CARD ---
APPROVED REPORT EKG Measurement Heart [id number] <Conclusion> Normal sinus rhythm Possible Left atrial enlargement Cannot rule out Anterior infarct, age undetermined T wave abnormality, consider inferior ischemia Abnormal ECG
== END 2017-06-14 15:15 | disposition home or self-care (01) ==
LOC: ED 12:44
DX: R07.89 Other chest pain (principal); I10 Essential (primary) hypertension; I50.9 Heart failure, unspecified; Z87.891 Personal history of nicotine dependence

== ENCOUNTER 2017-06-23 19:08 | Emergency (ER) | payer OTHER ==
[2017-06-23 19:32] VITALS: RESP 18; TEMP 98.2; BMI 39.3
[2017-06-23 20:31] LABS: HEMOGLOBIN 13.4 g/dL (12.0-16.0); MEAN CELL VOLUME 99.5 fl (80.0-105.0); MEAN CORPUSCULAR HEMOGLOBIN 32.6 pg (25.0-35.0); MEAN CORPUSCULAR HGB CONC 32.8 g/dl (31.0-37.0); MEAN PLATELET VOLUME 11.2 fl (7.0-11.0); RBC 4.11 10^6/uL (3.5-6.1); RED CELL DISTRIBUTION WIDTH 14.4 % (11.5-14.5); WHITE BLOOD COUNT 5.5 10^3/ul (4.5-11.0)
[2017-06-23 20:42] LABS: ALBUMIN 4.1 g/dL (3.0-4.8); ALT/SGPT 75 U/L (7-56); AST/SGOT 52 U/L (14-36); BLOOD UREA NITROGEN 9 mg/dL (7-21); GFR AFRICAN-AMERICAN > 60; GFR NON-AFRICAN AMERICAN > 60
[2017-06-23 20:51] LABS: TROPONIN I < 0.01 ng/mL
--- NOTE | 2017-06-23 20:54 | ED PDOC ---
Arrival/HPI - General Chief Complaint: Chest Pain Time Seen by Provider: 06/23/17 19:24 Historian: Patient - History of Present Illness Narrative History of Present Illness (Text): 06/23/17 19:43 A 61 year old female, whose past medical history includes anxiety, hypertension , colon CA, and seizure disorder, presents to the emergency department complaining of unwitnessed seizure episode tonight. Patient reports may not be completely complaint with medications. Level was checked. Patient notes anxiety flared up following this event. Patient is requesting for Ativan. States patient 's symptoms of feeling agitated and some chest discomfort is nothing new. Patient denies any chest pain, shortness of breath, nausea, vomiting, diarrhea, or any other complaints at this time. PMD: Dr. Jony Sy Past Medical History - Provider Review Nursing Documentation Reviewed: Yes - Infectious Disease Hx of Infectious Diseases: None - Tetanus Immunization Tetanus Immunization: Up to Date - Past Medical History Past Medical History: Non-Contributing - Cardiac Hx Congestive Heart Failure: Yes Hx Hypertension: Yes Hx Peripheral Edema: Yes - Pulmonary Hx Asthma: Yes Hx Bronchitis: Yes Hx Pulmonary Embolism: Yes - Neurological Hx Migraine: Yes Hx Seizures: Yes - HEENT Hx HEENT Disorder: No - Hematological/Oncological Hx Anemia: Yes - Integumentary Hx Dermatological Disorder: No - Musculoskeletal/Rheumatological Hx Arthritis: Yes - Gastrointestinal Hx Crohn's Disease: Yes Hx Gall Bladder Disease: Yes Hx Gastritis: Yes Hx Gastrointestinal Ulcer: Yes - Genitourinary/Gynecological Hx Sexually Transmitted Diseases: No - Psychiatric Hx Anxiety: Yes Hx Depression: Yes Hx Substance Use: Yes - Past Surgical History Past Surgical History: Non-Contributing - Surgical History Hx Cholecystectomy: Yes - Anesthesia Hx Anesthesia: Yes Hx Anesthesia Reactions: No Hx Malignant Hyperthermia: No - Suicidal Assessment Feels Threatened In Home Enviroment: No Family/Social History - Physician Review Nursing Documentation Reviewed: Yes Family/Social History: No Known Family HX Smoking Status: Former Smoker Hx Alcohol Use: No Hx Substance Use: Yes Substance used: PAIN MEDICATION Hx Substance Use Treatment: No Allergies/Home Meds Allergies/Adverse Reactions: Allergies benzethonium chloride Allergy (Intermediate, Verified 05/05/17 07:18) URTICARIA benzocaine Allergy (Unknown, Verified 05/05/17 07:18) ITCHING broccoli Allergy (Unknown, Verified 05/05/17 07:18) ITCHING ketorolac tromethamine [From Toradol] Allergy (Unknown, Verified 05/05/17 07:18) ANAPHYLAXIS lidocaine Allergy (Unknown, Verified 05/05/17 07:18) ITCHING nitroglycerin Allergy (Unknown, Verified 05/05/17 07:18) URTICARIA pineapple Allergy (Unknown, Verified 05/05/17 07:18) ITCHING trazodone Allergy (Unknown, Verified 05/05/17 07:18) "heart flutters", swelling haloperidol [From Haldol] Allergy (Verified 05/05/17 07:18) VOMITING haloperidol lactate [From Haldol] Allergy (Verified 05/05/17 07:18) VOMITING oxycodone Allergy (Verified 05/05/17 07:18) SHORTNESS OF BREATH Unknown reaction, patient refused to answer. ziprasidone HCl [From Geodon] Allergy (Verified 05/05/17 07:18) SHORTNESS OF BREATH palpitations ziprasidone mesylate [From Geodon] Allergy (Verified 05/05/17 07:18) SHORTNESS OF BREATH aspirin Adverse Reaction (Unknown, Verified 05/05/17 07:18) "heart flutters", swelling Lanacane Allergy (Uncoded 05/05/17 07:18) SHORTNESS OF BREATH Unknown reaction, patient refused to answer. Steroids Allergy (Uncoded 05/05/17 07:18) SHORTNESS OF BREATH Unknown reaction, patient refused to answer. steroids Allergy (Uncoded 05/05/17 07:18) "heart flutters", swelling Home Medications: Home Meds Medication Instructions Recorded Confirmed Enoxaparin [Lovenox] 80 mg SC BID 12/18/16 06/23/17 HYDROmorphone [Dilaudid] 2 mg PO QID 12/18/16 06/23/17 LORazepam [Ativan] 2 mg PO TID 12/18/1618 Review of Systems - Physician Review All systems were reviewed & negative as marked: Yes - Review of Systems Respiratory: absent: SOB Cardiovascular: absent: Chest Pain Gastrointestinal: absent: Diarrhea, Nausea, Vomiting Neurological: Seizure Physical Exam Vital Signs Reviewed: Yes Vital Signs Temp Pulse Resp BP Pulse Ox 06/23/17 20:40 83 18 128/75 99 06/23/17 19:08 98.2 F 86 18 130/72 97 Temperature: Afebrile Blood Pressure: Normal Pulse: Regular Respiratory Rate: Normal Appearance: Positive for: Well-Appearing Pain Distress: None Mental Status: Positive for: Alert and Oriented X 3 - Systems Exam Head: Present: Atraumatic, Normocephalic Pupils: Present: PERRL Extroacular Muscles: Present: EOMI Conjunctiva: Present: Normal Mouth: Present: Moist Mucous Membranes Neck: Present: Normal Range of Motion Respiratory/Chest: Present: Clear to Auscultation, Good Air Exchange. No: Respiratory Distress, Accessory Muscle Use Cardiovascular: Present: Regular Rate and Rhythm, Normal S1, S2. No: Murmurs Abdomen: Present: Normal Bowel Sounds. No: Tenderness, Distention, Peritoneal Signs Back: Present: Normal Inspection Upper Extremity: Present: Normal Inspection. No: Cyanosis, Edema Lower Extremity: Present: Normal Inspection. No: Edema Neurological: Present: GCS=15, CN II-XII Intact, Speech Normal Skin: Present: Warm, Dry, Normal Color. No: Rashes Psychiatric: Present: Alert, Oriented x 3, Normal Insight, Normal Concentration Medical Decision Making ED Course and Treatment: 06/23/17 19:48 Impression: 61 year old female with unwitnessed seizure. Plan: -- EKG -- Labs -- Ativan -- Reassess and disposition Progress Notes: EKG: Ordered, reviewed, and independently interpreted the EKG. Rate : 91 BPM Rhythm : NSR Interpretation : T-wave inferiorly changed. Comparison : No change from previous EKGs. 06/23/17 23:07 On re-evaluation, patient feels better after medication and is in no acute distress. I have discussed the results and plan with the patient, who expresses understanding. Patient in agreement with plan to be discharged home. Patient is stable for discharge. Patient was instructed to follow up with physician or return if symptoms worsen or new concerning symptoms arise. - Lab Interpretations Lab Results: 06/23/17 19:25 06/23/17 19:25 Lab Results 06/23/17 19:25: Phenytoin 16 06/23/17 19:25: WBC 5.5, RBC 4.11, Hgb 13.4, Hct 40.9, MCV 99.5, MCH 32.6, MCHC 32.8, RDW 14.4, Plt Count 94 L, MPV 11.2 H 06/23/17 19:25: Sodium 142, Potassium 3.5 L, Chloride 108 H, Carbon Dioxide 27, Anion Gap 10, BUN 9, Creatinine 0.5 L, Est GFR ( Amer) > 60, Est GFR (Non -Af Amer) > 60, Random Glucose 102, Calcium 9.0, Total Bilirubin 0.4, AST 52 H D , ALT 75 H, Alkaline Phosphatase 177 H, Lactate Dehydrogenase 912 H, Total Creatine Kinase 195, Troponin I < 0.01, Total Protein 8.1, Albumin 4.1, Globulin 4.0, Albumin/Globulin Ratio 1.0 L - Medication Orders Current Medication Orders: Discontinued Medications Lorazepam (Ativan) 2 mg PO ONCE STA Stop: 06/23/17 19:51 Last Admin: 06/23/17 20:02 Dose: 2 mg - Scribe Statement The provider has reviewed the documentation as recorded by the Barber Diaz Provider Scribe Attestation: All medical record entries made by the Mattieibcara were at my direction and personally dictated by me. I have reviewed the chart and agree that the record accurately reflects my personal performance of the history, physical exam, medical decision making, and the department course for this patient. I have also personally directed, reviewed, and agree with the discharge instructions and disposition. Disposition/Present on Arrival - Present on Arrival Any Indicators Present on Arrival: No History of DVT/PE: Yes History of Uncontrolled Diabetes: No Urinary Catheter: No History of Decub. Ulcer: No History Surgical Site Infection Following: None - Disposition Have Diagnosis and Disposition been Completed?: Yes Diagnosis: Anxiety, Seizure disorder Disposition: HOME/ ROUTINE Disposition Time: 23:04 Patient Plan: Discharge Patient Problems: Current Active Problems Problem Status Onset Anxiety Acute Seizure disorder Acute Condition: GOOD Discharge Instructions (ExitCare): Anxiety, Adult (DC), Seizures, Adult (DC) Additional Instructions: Continue your current meds/follow up with your doctor this week Referrals: Jony Sy MD [Primary Care Provider] - Follow up with primary Forms: [employer] (Kittitian)
[2017-06-24 00:58] VITALS: BP 125/60; PULSE 84; O2SAT 97
--- NOTE | 2017-06-24 10:29 | CARD ---
APPROVED REPORT EKG Measurement Heart [id number] <Conclusion> Normal sinus rhythm Possible Left atrial enlargement T wave abnormality, consider inferior ischemia Abnormal ECG
== END 2017-06-23 23:15 | disposition home or self-care (01) ==
LOC: ED 19:08
DX: G40.909 Epilepsy, unspecified, not intractable, without status epilepticus (principal); F41.9 Anxiety disorder, unspecified; I10 Essential (primary) hypertension; Z87.891 Personal history of nicotine dependence

== ENCOUNTER 2017-07-23 13:29 | Emergency (ER) | payer MEDICAID, OTHER ==
[2017-07-23 13:29] VITALS: BMI 31.1
--- NOTE | 2017-07-23 14:36 | ED PDOC ---
Arrival/HPI - General Chief Complaint: Seizure Time Seen by Provider: 07/23/17 13:49 Historian: Patient - History of Present Illness Narrative History of Present Illness (Text): 07/23/17 14:26 A 61 year old female, whose past medical history includes, presents to the emergency department after witnessed seizure 30 minutes prior to arrival. As per friend, patients seizure lasted 20 minutes. Patient recently filled her prescription for Dilantin but states she did not take the medication because she was unsure of her Dilantin level. Patient also notes feeling anxious but reports she can not refill her prescription for Ativan until 5 more days. Patient notes dysuria with cloudy urine but denies any injuries, head trauma, tongue biting, urinary incontinence, fever, chills, nausea, vomiting, abdominal pain, chest pain, shortness of breath, headache, dizziness or any other complaints. Patient reports she was recently hospitalized in [facility] and informed she has an inflamed liver. Patient was discharged 5 days ago and instructed to follow up with her PMD. Time/Duration: Other (30 mins [employer]ELF [employer]IST) Context: Home Past Medical History - Provider Review Nursing Documentation Reviewed: Yes - Infectious Disease Hx of Infectious Diseases: None - Tetanus Immunization Tetanus Immunization: Up to Date - Past Medical History Past Medical History: Non-Contributing - Cardiac Hx Congestive Heart Failure: Yes Hx Hypertension: Yes Hx Peripheral Edema: Yes - Pulmonary Hx Asthma: Yes Hx Bronchitis: Yes Hx Pulmonary Embolism: Yes - Neurological Hx Migraine: Yes Hx Seizures: Yes - HEENT Hx HEENT Disorder: No - Renal Hx Renal Disorder: No - Hematological/Oncological Hx Anemia: Yes - Integumentary Hx Dermatological Disorder: No - Musculoskeletal/Rheumatological Hx Arthritis: Yes - Gastrointestinal Hx Crohn's Disease: Yes Hx Gall Bladder Disease: Yes Hx Gastritis: Yes Hx Gastrointestinal Ulcer: Yes - Genitourinary/Gynecological Hx Sexually Transmitted Diseases: No - Psychiatric Hx Anxiety: Yes Hx Depression: Yes Hx Substance Use: Yes - Past Surgical History Past Surgical History: Non-Contributing - Surgical History Hx Cholecystectomy: Yes - Anesthesia Hx Anesthesia: Yes Hx Anesthesia Reactions: No Hx Malignant Hyperthermia: No - Suicidal Assessment Feels Threatened In Home Enviroment: No Family/Social History - Physician Review Nursing Documentation Reviewed: Yes Family/Social History: No Known Family HX Smoking Status: Former Smoker Hx Alcohol Use: No Hx Substance Use: Yes Substance used: PAIN MEDICATION Hx Substance Use Treatment: No Allergies/Home Meds Allergies/Adverse Reactions: Allergies benzethonium chloride Allergy (Intermediate, Verified 07/23/17 13:44) URTICARIA benzocaine Allergy (Unknown, Verified 07/23/17 13:44) ITCHING broccoli Allergy (Unknown, Verified 07/23/17 13:44) ITCHING ketorolac tromethamine [From Toradol] Allergy (Unknown, Verified 07/23/17 13:44) ANAPHYLAXIS lidocaine Allergy (Unknown, Verified 07/23/17 13:44) ITCHING nitroglycerin Allergy (Unknown, Verified 07/23/17 13:44) URTICARIA pineapple Allergy (Unknown, Verified 07/23/17 13:44) ITCHING trazodone Allergy (Unknown, Verified 07/23/17 13:44) "heart flutters", swelling haloperidol [From Haldol] Allergy (Verified 07/23/17 13:44) VOMITING haloperidol lactate [From Haldol] Allergy (Verified 07/23/17 13:44) VOMITING oxycodone Allergy (Verified 07/23/17 13:44) SHORTNESS OF BREATH Unknown reaction, patient refused to answer. ziprasidone HCl [From Geodon] Allergy (Verified 07/23/17 13:44) SHORTNESS OF BREATH palpitations ziprasidone mesylate [From Geodon] Allergy (Verified 07/23/17 13:44) SHORTNESS OF BREATH aspirin Adverse Reaction (Unknown, Verified 07/23/17 13:44) "heart flutters", swelling Lanacane Allergy (Uncoded 07/23/17 13:44) SHORTNESS OF BREATH Unknown reaction, patient refused to answer. Steroids Allergy (Uncoded 07/23/17 13:44) SHORTNESS OF BREATH Unknown reaction, patient refused to answer. steroids Allergy (Uncoded 07/23/17 13:44) "heart flutters", swelling Home Medications: Home Meds Medication Instructions Recorded Confirmed Enoxaparin [Lovenox] 80 mg SC BID 12/18/16 06/23/17 HYDROmorphone [Dilaudid] 2 mg PO QID 12/18/16 06/23/17 LORazepam [Ativan] 2 mg PO TID 12/18/16 06/23/17 Review of Systems - Physician Review All systems were reviewed & negative as marked: Yes - Review of Systems Constitutional: absent: Fevers, Night Sweats Respiratory: absent: SOB Cardiovascular: absent: Chest Pain Gastrointestinal: absent: Abdominal Pain, Nausea, Vomiting Genitourinary Female: Dysuria (with cloudy urine) Neurological: Seizure Psychiatric: Anxiety Physical Exam Vital Signs Reviewed: Yes Vital Signs Temp Pulse Resp BP Pulse Ox 07/23/17 16:11 98.5 F 83 18 147/82 100 07/23/17 13:44 98.2 F 85 16 150/87 99 Temperature: Afebrile Blood Pressure: Normal Pulse: Regular Respiratory Rate: Normal Appearance: Positive for: Well-Appearing, Non-Toxic, Comfortable Pain Distress: None Mental Status: Positive for: Alert and Oriented X 3 - Systems Exam Head: Present: Atraumatic, Normocephalic Pupils: Present: PERRL Extroacular Muscles: Present: EOMI Conjunctiva: Present: Normal Mouth: Present: Moist Mucous Membranes Neck: Present: Normal Range of Motion Respiratory/Chest: Present: Clear to Auscultation, Good Air Exchange. No: Respiratory Distress, Accessory Muscle Use Cardiovascular: Present: Regular Rate and Rhythm, Normal S1, S2. No: Murmurs Abdomen: No: Tenderness, Distention, Peritoneal Signs Back: Present: Normal Inspection Upper Extremity: Present: Normal Inspection. No: Cyanosis, Edema Lower Extremity: Present: Normal Inspection. No: Edema Neurological: Present: GCS=15, CN II-XII Intact, Speech Normal Skin: Present: Warm, Dry, Normal Color. No: Rashes Psychiatric: Present: Alert, Oriented x 3, Normal Insight, Normal Concentration Medical Decision Making ED Course and Treatment: 07/23/17 14:26 Impression: A 61 year old female presents after witnessed seizure. Patient notes anxiety but denies any other complaints. Patient has not taken her Dilantin or Ativan. Plan: -- Labs -- Urine culture and Urinalysis -- Ativan -- Reassess and disposition Progress Notes: - Lab Interpretations Lab Results: 07/23/17 17:24 07/23/17 17:24 Lab Results 07/23/17 17:24: Alcohol, Quantitative < 10 07/23/17 17:24: Phenytoin 14 07/23/17 17:24: Sodium 141, Potassium 4.0, Chloride 107, Carbon Dioxide 25, Anion Gap 13, BUN 14, Creatinine 0.6 L, Est GFR ( Amer) > 60, Est GFR ( Non-Af Amer) > 60, Random Glucose 170 H, Calcium 8.8, Total Bilirubin 0.1 L, Direct Bilirubin 0.1, AST 32, ALT 49, Alkaline Phosphatase 122, Total Protein 7.0, Albumin 3.6, Globulin 3.4, Albumin/Globulin Ratio 1.1, Lipase 32 07/23/17 17:24: PT 12.8 H, INR 1.12 H 07/23/17 17:24: WBC 5.8, RBC 3.74, Hgb 11.9 L, Hct 36.1, MCV 96.5 D, MCH 31.8, MCHC 33.0, RDW 13.9, Plt Count 131, MPV 10.4, Gran % 63.9, Lymph % (Auto) 30.3, Hopkins % (Auto) 5.1, Eos % (Auto) 0.5 L, Baso % (Auto) 0.2, Gran # 3.73, Lymph # ( Auto) 1.8, Hopkins # (Auto) 0.3, Eos # (Auto) 0.0, Baso # (Auto) 0.01 07/23/17 14:30: Urine Opiates Screen Positive H, Urine Methadone Screen Negative , Ur Barbiturates Screen Negative, Ur Phencyclidine Scrn Negative, Ur Amphetamines Screen Negative, U Benzodiazepines Scrn Negative, U Oth Cocaine Metabols Negative, U Cannabinoids Screen Negative 07/23/17 14:30: Urine Color Light yellow, Urine Appearance Clear, Urine pH 7.0, Ur Specific [place] 1.010, Urine Protein Negative, Urine Glucose (UA) Negative, Urine Ketones Negative, Urine Blood Trace-lysed H, Urine Nitrate Negative, Urine Bilirubin Negative, Urine Urobilinogen 0.2, Ur Leukocyte Esterase Negative , Urine RBC 0 - 2, Urine WBC 0 - 2, Ur Epithelial Cells 0 - 2, Urine Bacteria Neg I have reviewed the lab results: Yes - Medication Orders Current Medication Orders: Discontinued Medications Fosphenytoin Sodium 1,465 mg/ (Sodium Chloride) 129.3 mls @ 258.6 mls/hr IV ONCE ONE Stop: 07/23/17 17:14 Last Admin: 07/23/17 17:33 Dose: 258.6 mls/hr eMAR Start Stop Document 07/23/17 17:33 LA (Rec: 07/23/17 17:33 LA [id number]) Intravenous Solution Start Date 07/23/17 Start Time 17:33 End Date 07/23/17 End time 18:03 Total Infusion Time 30 Lorazepam (Ativan) 2 mg IVP ONCE ONE PRN Reason: Protocol Stop: 07/23/17 14:28 Last Admin: 07/23/17 15:07 Dose: 2 mg IVP Administration Document 07/23/17 15:07 MARANDA (Rec: 07/23/17 15:07 MARANDA [id number]) Charges for Administration # of IVP Administrations 1 Lorazepam (Ativan) 2 mg PO ONCE ONE PRN Reason: Protocol Stop: 07/23/17 17:11 Last Admin: 07/23/17 17:54 Dose: 2 mg - Scribe Statement The provider has reviewed the documentation as recorded by the Mattieibe Zeny Nicole Provider Scribe Attestation: All medical record entries made by the Scribe were at my direction and personally dictated by me. I have reviewed the chart and agree that the record accurately reflects my personal performance of the history, physical exam, medical decision making, and the department course for this patient. I have also personally directed, reviewed, and agree with the discharge instructions and disposition. Disposition/Present on Arrival - Present on Arrival Any Indicators Present on Arrival: No History of DVT/PE: Yes History of Uncontrolled Diabetes: No Urinary Catheter: No History of Decub. Ulcer: No History Surgical Site Infection Following: None - Disposition Have Diagnosis and Disposition been Completed?: Yes Diagnosis: Anxiety, Seizure, Medical non-compliance Disposition: HOME/ ROUTINE Disposition Time: 18:15 Patient Plan: Discharge Condition: GOOD Discharge Instructions (ExitCare): Seizures, Adult (DC), Anxiety, Adult (DC) Additional Instructions: Ms Abreu- Please take all your meds as prescribed and return to us if any problems. Pawel- Dr. Imer Torres Forms: [employer] (Romanian)
[2017-07-23 15:17] LABS: URINE BILIRUBIN NEGATIVE (NEGATIVE); URINE BLOOD TRACE-LYSED (NEGATIVE); URINE GLUCOSE (UA) NEGATIVE (NEGATIVE); URINE LEUKOCYTE ESTERASE NEGATIVE Leu/uL (NEGATIVE); URINE PROTEIN NEGATIVE mg/dL (<30 mg/dL); URINE UROBILINOGEN 0.2 E.U./dL (<1 E.U./dL)
[2017-07-23 15:19] LABS: URINE APPEARANCE CLEAR (CLEAR); URINE COLOR LIGHT YELLOW (YELLOW)
[2017-07-23] MEDS ORDERED: Fosphenytoin 100 mg/2 ml Inj IV ONE (15:25)
[2017-07-23 15:32] LABS: URINE BACTERIA NEG (NEG); URINE EPITHELIAL CELLS 0 - 2 /hpf (0-5); URINE RBC 0 - 2 /hpf (0-2); URINE WBC 0 - 2 /hpf (0-6)
[2017-07-23 15:41] LABS: BARBITURATES, UR NEGATIVE (NEGATIVE); BENZODIAZEPINES, UR NEGATIVE (NEGATIVE); OPIATES, UR POSITIVE (NEGATIVE); PHENCYCLIDINE, UR NEGATIVE (NEGATIVE)
[2017-07-23 16:12] VITALS: RESP 18
[2017-07-23] MEDS ORDERED: SODIUM CHLORIDE 0.9% IV ONE (16:45)
[2017-07-23] MEDS ORDERED: FOSPHENYTOIN IV ONE (16:45)
[2017-07-23 17:34] LABS: BASO # 0.01 K/mm3 (0.0-2.0); BASO % 0.2 % (0.0-3.0); EOS % 0.5 % (1.5-5.0); GRAN # 3.73 (1.4-6.5); GRAN % 63.9 % (50.0-68.0); HEMOGLOBIN 11.9 g/dL (12.0-16.0); LYMPH # 1.8 (1.2-3.4); LYMPH % 30.3 % (22.0-35.0); MEAN CELL VOLUME 96.5 fl (80.0-105.0); MEAN CORPUSCULAR HEMOGLOBIN 31.8 pg (25.0-35.0); MEAN PLATELET VOLUME 10.4 fl (7.0-11.0); MONO # 0.3 (0.1-0.6); MONO % 5.1 % (1.0-6.0); RBC 3.74 10^6/uL (3.5-6.1); RED CELL DISTRIBUTION WIDTH 13.9 % (11.5-14.5); WHITE BLOOD COUNT 5.8 10^3/ul (4.5-11.0)
[2017-07-23 17:40] LABS: INR 1.12 (0.93-1.08); PROTHROMBIN TIME 12.8 SECONDS (9.4-12.5)
[2017-07-23 17:56] LABS: ALB/GLOB RATIO 1.1 (1.1-1.8); ALBUMIN 3.6 g/dL (3.0-4.8); ALT/SGPT 49 U/L (7-56); AST/SGOT 32 U/L (14-36); BILIRUBIN,DIRECT 0.1 mg/dL (0.0-0.4); BLOOD UREA NITROGEN 14 mg/dL (7-21); CALCIUM 8.8 mg/dL (8.4-10.5); GFR AFRICAN-AMERICAN > 60; GFR NON-AFRICAN AMERICAN > 60; LIPASE 32 U/L (23-300)
[2017-07-23 18:37] VITALS: BP 140/80; PULSE 80; TEMP 98; O2SAT 99
== END 2017-07-23 18:38 | disposition home or self-care (01) ==
LOC: ED 13:29
DX: R56.9 Unspecified convulsions (principal); F41.9 Anxiety disorder, unspecified; Z91.19 Patient's noncompliance with other medical treatment and regimen; I10 Essential (primary) hypertension; Z87.891 Personal history of nicotine dependence
CPT/HCPCS: 80053; 80185; 80320; 80324; 80345; 80346; 80349; 80353; 80358; 80361; 81001; 82248; 83690; 83992; 85025; 85610; 87086; 96374; 99285; J2060; Q2009

== ENCOUNTER 2017-08-10 21:28 | Emergency (ER) | payer OTHER ==
[2017-08-10 21:32] VITALS: BMI 38.4
--- NOTE | 2017-08-10 21:56 | ED PDOC ---
Arrival/HPI - General Chief Complaint: Seizure Time Seen by Provider: 08/10/17 21:30 Historian: Patient - History of Present Illness Narrative History of Present Illness (Text): 08/10/17 21:56 Justina Abreu is a 61 year old female whose past medical history includes COPD , asthma, anemia, anxiety and seizures, presents to the emergency department status post seizure episodes prior to arrival. Patient is awake, alert, and oriented x3. Patient states she has not taken her Dilantin in 2 days because she ran out of her medication. Patient requesting Dilantin and Ativan. Patient states she is schedule to see her PMD tomorrow for medication refills. Patient denies any fever, chills, chest pain, shortness of breath, nausea, vomiting, diarrhea, urinary symptoms, back pain, neck pain, headache, dizziness, or any other complaints. Time/Duration: Prior to Arrival Symptom Onset: Gradual Symptom Course: Unchanged Activities at Onset: Light Context: Home Past Medical History - Provider Review Nursing Documentation Reviewed: Yes - Infectious Disease Hx of Infectious Diseases: None - Tetanus Immunization Tetanus Immunization: Up to Date - Past Medical History Past Medical History: Non-Contributing - Cardiac Hx Congestive Heart Failure: Yes Hx Hypertension: Yes Hx Peripheral Edema: Yes - Pulmonary Hx Asthma: Yes Hx Bronchitis: Yes Hx Pulmonary Embolism: Yes - Neurological Hx Migraine: Yes Hx Seizures: Yes - HEENT Hx HEENT Disorder: No - Renal Hx Renal Disorder: No - Hematological/Oncological Hx Anemia: Yes - Integumentary Hx Dermatological Disorder: No - Musculoskeletal/Rheumatological Hx Arthritis: Yes - Gastrointestinal Hx Crohn's Disease: Yes Hx Gall Bladder Disease: Yes Hx Gastritis: Yes Hx Gastrointestinal Ulcer: Yes - Genitourinary/Gynecological Hx Sexually Transmitted Diseases: No - Psychiatric Hx Anxiety: Yes Hx Depression: Yes Hx Substance Use: Yes - Past Surgical History Past Surgical History: Non-Contributing - Surgical History Hx Cholecystectomy: Yes - Anesthesia Hx Anesthesia: Yes Hx Anesthesia Reactions: No Hx Malignant Hyperthermia: No - Suicidal Assessment Feels Threatened In Home Enviroment: No Family/Social History - Physician Review Nursing Documentation Reviewed: Yes Family/Social History: Unknown Family HX Smoking Status: Former Smoker Hx Alcohol Use: No Hx Substance Use: Yes Substance used: PAIN MEDICATION Hx Substance Use Treatment: No Allergies/Home Meds Allergies/Adverse Reactions: Allergies benzethonium chloride Allergy (Intermediate, Verified 08/10/17 21:34) URTICARIA benzocaine Allergy (Unknown, Verified 08/10/17 21:34) ITCHING broccoli Allergy (Unknown, Verified 08/10/17 21:34) ITCHING ketorolac tromethamine [From Toradol] Allergy (Unknown, Verified 08/10/17 21:34) ANAPHYLAXIS lidocaine Allergy (Unknown, Verified 08/10/17 21:34) ITCHING nitroglycerin Allergy (Unknown, Verified 08/10/17 21:34) URTICARIA pineapple Allergy (Unknown, Verified 08/10/17 21:34) ITCHING trazodone Allergy (Unknown, Verified 08/10/17 21:34) "heart flutters", swelling haloperidol [From Haldol] Allergy (Verified 08/10/17 21:34) VOMITING haloperidol lactate [From Haldol] Allergy (Verified 08/10/17 21:34) VOMITING oxycodone Allergy (Verified 07/23/17 13:44) SHORTNESS OF BREATH Unknown reaction, patient refused to answer. ziprasidone HCl [From Geodon] Allergy (Verified 07/23/17 13:44) SHORTNESS OF BREATH palpitations ziprasidone mesylate [From Geodon] Allergy (Verified 07/23/17 13:44) SHORTNESS OF BREATH aspirin Adverse Reaction (Unknown, Verified 07/23/17 13:44) "heart flutters", swelling Lanacane Allergy (Uncoded 07/23/17 13:44) SHORTNESS OF BREATH Unknown reaction, patient refused to answer. Steroids Allergy (Uncoded 07/23/17 13:44) SHORTNESS OF BREATH Unknown reaction, patient refused to answer. steroids Allergy (Uncoded 07/23/17 13:44) "heart flutters", swelling Home Medications: Home Meds Medication Instructions Recorded Confirmed Enoxaparin [Lovenox] 80 mg SC BID 12/18/16 08/10/17 HYDROmorphone [Dilaudid] 2 mg PO QID 12/18/16 08/10/17 LORazepam [Ativan] 2 mg PO TID 12/18/16 08/10/17 Phenytoin [Dilantin] 100 mg PO Q4 07/23/17 08/10/17 Review of Systems - Physician Review All systems were reviewed & negative as marked: Yes - Review of Systems Constitutional: Normal. absent: Fevers Eyes: Normal ENT: Normal Respiratory: Normal. absent: SOB, Cough Cardiovascular: Normal. absent: Chest Pain Gastrointestinal: Normal. absent: Abdominal Pain, Diarrhea, Nausea, Vomiting Genitourinary Female: Normal. absent: Dysuria, Frequency, Hematuria, Urine Output Changes Musculoskeletal: Normal. absent: Back Pain, Neck Pain Skin: Normal. absent: Rash Neurological: Seizure. absent: Headache, Dizziness Endocrine: Normal Hemo/Lymphatic: Normal Psychiatric: Normal Physical Exam Vital Signs Reviewed: Yes Vital Signs Temp Pulse Resp BP Pulse Ox 08/10/17 22:08 97.8 F 82 18 137/75 98 Temperature: Afebrile Blood Pressure: Normal Pulse: Regular Respiratory Rate: Normal Appearance: Positive for: Well-Appearing, Non-Toxic, Comfortable Pain Distress: None Mental Status: Positive for: Alert and Oriented X 3 - Systems Exam Head: Present: Atraumatic, Normocephalic Pupils: Present: PERRL Extroacular Muscles: Present: EOMI Conjunctiva: Present: Normal Ears: Present: Normal, NORMAL TM, Normal Canal. No: Erythema, TM Bulging, Fluid Mouth: Present: Moist Mucous Membranes Pharnyx: Present: Normal. No: ERYTHEMA, EXUDATE, TONSILS ENLARGED, Peritonsilar Swelling, Uvular Deviation, Muffled/Hoarse Voice, Strider, Soft Palate/Uvular Edema Nose (External): Present: Atraumatic Nose (Internal): Present: Normal Inspection Neck: Present: Normal Range of Motion. No: Meningeal Signs, MIDLINE TENDERNESS , Paraspinal Tenderness Respiratory/Chest: Present: Clear to Auscultation, Good Air Exchange. No: Respiratory Distress, Accessory Muscle Use Cardiovascular: Present: Regular Rate and Rhythm, Normal S1, S2. No: Murmurs Abdomen: No: Tenderness, Distention, Peritoneal Signs Back: Present: Normal Inspection. No: CVA Tenderness, Midline Tenderness, Paraspinal Tenderness Upper Extremity: Present: Normal Inspection. No: Cyanosis, Edema Lower Extremity: Present: Normal Inspection. No: Edema Neurological: Present: GCS=15, CN II-XII Intact, Speech Normal Skin: Present: Warm, Dry, Normal Color. No: Rashes Psychiatric: Present: Alert, Oriented x 3, Normal Insight, Normal Concentration Medical Decision Making ED Course and Treatment: 08/10/17 21:56 Impression: 61 year old female complaining of seizure [employer], non-compliant with medication. Differential Diagnosis included but are not limited to: seizure disorder Plan: -- EKG -- Dilantin level -- Reassess and disposition Prior Visits: Notes and results from previous visits were reviewed. On 07/23/2017, pt was seeen in the s/p seizure at home. Pt was d/c home. Progress Notes: Reviewed EKG, NSR at 80 bpm. Non-specific T wave changes. 08/11/17 00:20 On re-evaluation, patient feels better and is in no acute distress. I have discussed the results and plan with the patient, who expresses understanding. Patient in agreement with plan to be discharged home. Patient is stable for discharge. Patient was instructed to follow up with physician or return if symptoms worsen or new concerning symptoms arise. - Lab Interpretations Lab Results: Lab Results 08/10/17 22:40: Phenytoin 20 I have reviewed the lab results: Yes - EKG Interpretation Interpreted by ED Physician: Yes Type: 12 lead EKG - Medication Orders Current Medication Orders: Discontinued Medications Lorazepam (Ativan) 2 mg PO ONCE ONE PRN Reason: Protocol Stop: 08/10/17 22:36 Last Admin: 08/10/17 23:18 Dose: 2 mg Phenytoin Sodium (Dilantin) 300 mg PO STAT STA Stop: 08/10/17 22:02 Last Admin: 08/10/17 22:25 Dose: Not Given Non-Admin Reason: Patient Refused - Scribe Statement The provider has reviewed the documentation as recorded by the Scribcara Echeverria All medical record entries made by the Mattieibcara were at my direction and personally dictated by me. I have reviewed the chart and agree that the record accurately reflects my personal performance of the history, physical exam, medical decision making, and the department course for this patient. I have also personally directed, reviewed, and agree with the discharge instructions and disposition. Disposition/Present on Arrival - Present on Arrival Any Indicators Present on Arrival: No History of DVT/PE: Yes History of Uncontrolled Diabetes: No Urinary Catheter: No History of Decub. Ulcer: No History Surgical Site Infection Following: None - Disposition Have Diagnosis and Disposition been Completed?: Yes Diagnosis: Chest pain, Anxiety, Seizure Disposition: HOME/ ROUTINE Disposition Time: 00:20 Condition: GOOD Discharge Instructions (ExitCare): Chest Pain That Is Not Caused by the Heart ( DC), Anxiety, Adult (DC), Seizures, Chest Pain (ED) Forms: [employer] (Polish)
[2017-08-10 22:20] VITALS: BP 137/75; PULSE 82; RESP 18; TEMP 97.8; O2SAT 98
== END 2017-08-11 00:23 | disposition home or self-care (01) ==
LOC: ED 21:28
DX: R56.9 Unspecified convulsions (principal); F41.9 Anxiety disorder, unspecified; R07.9 Chest pain, unspecified; I10 Essential (primary) hypertension; I50.9 Heart failure, unspecified

== ENCOUNTER 2017-08-17 06:46 | Emergency (ER) | payer MEDICAID, OTHER ==
[2017-08-17 06:48] VITALS: BMI 38.4
--- NOTE | 2017-08-17 07:42 | ED PDOC ---
Arrival/HPI - General Chief Complaint: Seizure Time Seen by Provider: 08/17/17 07:17 Historian: Patient - History of Present Illness Narrative History of Present Illness (Text): 08/17/17 07:39 Patient presents to the Emergency Department stating that she feels very anxious and that she ran out of her Ativan recently. She denies suicidal or homicidal ideation. She denies chest pain or shortness of breath. She states that she also feels that she "may have had a seizure earlier" because she found that she was laying in the bed last night and couldn't remember. Denies incontinence. Denies shakiness or tremors. Denies nausea or vomiting. Denies abdominal pain. Denies bloody urine or stool. Time/Duration: Prior to Arrival Symptom Onset: Gradual Past Medical History - Infectious Disease Hx of Infectious Diseases: None - Tetanus Immunization Tetanus Immunization: Up to Date - Past Medical History Past Medical History: Non-Contributing - Cardiac Hx Coronary Artery Disease: Yes Hx Congestive Heart Failure: Yes Hx Hypertension: Yes Hx Peripheral Edema: Yes - Pulmonary Hx Asthma: Yes Hx Bronchitis: Yes Hx Pulmonary Embolism: Yes - Neurological Hx Migraine: Yes Hx Seizures: Yes (epilepsy) - HEENT Hx HEENT Disorder: No - Renal Hx Renal Disorder: No - Hematological/Oncological Hx Anemia: Yes - Integumentary Hx Dermatological Disorder: No - Musculoskeletal/Rheumatological Hx Arthritis: Yes - Gastrointestinal Hx Crohn's Disease: Yes Hx Gall Bladder Disease: Yes Hx Gastritis: Yes Hx Gastrointestinal Ulcer: Yes - Genitourinary/Gynecological Hx Sexually Transmitted Diseases: No - Psychiatric Hx Anxiety: Yes Hx Depression: Yes Hx Substance Use: Yes - Past Surgical History Past Surgical History: Non-Contributing - Surgical History Hx Cholecystectomy: Yes - Anesthesia Hx Anesthesia: Yes Hx Anesthesia Reactions: No Hx Malignant Hyperthermia: No - Suicidal Assessment Feels Threatened In Home Enviroment: No Family/Social History Family/Social History: Unknown Family HX Smoking Status: Former Smoker Hx Alcohol Use: No Hx Substance Use: Yes Substance used: PAIN MEDICATION Hx Substance Use Treatment: No Allergies/Home Meds Allergies/Adverse Reactions: Allergies benzethonium chloride Allergy (Intermediate, Verified 08/10/17 21:34) URTICARIA benzocaine Allergy (Unknown, Verified 08/10/17 21:34) ITCHING broccoli Allergy (Unknown, Verified 08/10/17 21:34) ITCHING ketorolac tromethamine [From Toradol] Allergy (Unknown, Verified 08/10/17 21:34) ANAPHYLAXIS lidocaine Allergy (Unknown, Verified 08/10/17 21:34) ITCHING nitroglycerin Allergy (Unknown, Verified 08/10/17 21:34) URTICARIA pineapple Allergy (Unknown, Verified 08/10/17 21:34) ITCHING trazodone Allergy (Unknown, Verified 08/10/17 21:34) "heart flutters", swelling haloperidol [From Haldol] Allergy (Verified 08/10/17 21:34) VOMITING haloperidol lactate [From Haldol] Allergy (Verified 08/10/17 21:34) VOMITING oxycodone Allergy (Verified 07/23/17 13:44) SHORTNESS OF BREATH Unknown reaction, patient refused to answer. ziprasidone HCl [From Geodon] Allergy (Verified 07/23/17 13:44) SHORTNESS OF BREATH palpitations ziprasidone mesylate [From Geodon] Allergy (Verified 07/23/17 13:44) SHORTNESS OF BREATH aspirin Adverse Reaction (Unknown, Verified 07/23/17 13:44) "heart flutters", swelling Lanacane Allergy (Uncoded 07/23/17 13:44) SHORTNESS OF BREATH Unknown reaction, patient refused to answer. Steroids Allergy (Uncoded 07/23/17 13:44) SHORTNESS OF BREATH Unknown reaction, patient refused to answer. steroids Allergy (Uncoded 07/23/17 13:44) "heart flutters", swelling Home Medications: Home Meds Medication Instructions Recorded Confirmed Enoxaparin [Lovenox] 80 mg SC BID 12/18/16 08/10/17 HYDROmorphone [Dilaudid] 2 mg PO QID 12/18/16 08/10/17 LORazepam [Ativan] 2 mg PO TID 12/18/16 08/10/17 Phenytoin [Dilantin] 100 mg PO Q4 07/23/17 08/10/17 Review of Systems - Review of Systems Constitutional: absent: Fatigue, Fevers Respiratory: absent: SOB Cardiovascular: absent: Chest Pain, Palpitations, Edema, PATTERSON Gastrointestinal: absent: Abdominal Pain Genitourinary Female: absent: Dysuria, Frequency, Hematuria Musculoskeletal: absent: Back Pain Skin: absent: Rash Neurological: absent: Headache, Dizziness, Focal Weakness Endocrine: absent: Polyuria Hemo/Lymphatic: absent: Easy Bleeding Psychiatric: Anxiety. absent: Depression, Suicidal Ideation Physical Exam Vital Signs Reviewed: Yes Vital Signs Temp Pulse Resp BP Pulse Ox 08/17/17 07:43 98 F 74 18 154/83 H 99 Temperature: Afebrile Appearance: Positive for: Well-Appearing, Non-Toxic Mental Status: Positive for: Alert and Oriented X 3 - Systems Exam Head: Present: Atraumatic Pupils: Present: PERRL Extroacular Muscles: Present: EOMI Mouth: Present: Moist Mucous Membranes Pharnyx: No: ERYTHEMA Neck: Present: Normal Range of Motion. No: Meningeal Signs Respiratory/Chest: Present: Clear to Auscultation. No: Respiratory Distress Cardiovascular: Present: Regular Rate and Rhythm Abdomen: Present: Normal Bowel Sounds. No: Tenderness, Peritoneal Signs Back: No: CVA Tenderness Upper Extremity: No: Cyanosis Lower Extremity: Present: NORMAL PULSES. No: Edema, CALF TENDERNESS Neurological: Present: GCS=15, Speech Normal, Motor Func Grossly Intact, Normal Sensory Function, Normal Cerebellar Funct, Gait Normal Skin: Present: Warm Psychiatric: Present: Alert, Normal Concentration, Anxious. No: Agitated, Suicidal Ideation Medical Decision Making ED Course and Treatment: 08/17/17 07:43 Patient at this time is not postictal. No trauma. No incontinence or injury. No tongue laceration. Patient with no chest pain or sob. CV stable. She has hx of seizure disorder, takes Dilantin states she is compliant. Reports anxiety. Ativan ordered. Will monitor patient's symptoms, check Dilantin level. 08/17/17 08:42 Patient with improvement in anxiety. Denies depression or suicidal ideation. States she has follow-up with her PMD next week. No neuro deficits. CV stable. Advised of lab results and need for close follow-up. Not postictal or tremulous. Will d/c with two day rx of ativan, she states will follow-up with PMD. Dilantin level therapeutic. - Lab Interpretations Lab Results: 08/17/17 07:35 08/17/17 07:35 Lab Results 08/17/17 07:35: Sodium 146, Potassium 3.3 L, Chloride 110 H, Carbon Dioxide 27, Anion Gap 13, BUN 12, Creatinine 0.7, Est GFR ( Amer) > 60, Est GFR (Non- Af Amer) > 60, Random Glucose 106, Calcium 8.3 L, Total Bilirubin 0.3, AST 45 H D, ALT 62 H, Alkaline Phosphatase 147 H D, Total Protein 7.3, Albumin 3.9, Globulin 3.4, Albumin/Globulin Ratio 1.2 08/17/17 07:35: WBC 5.3, RBC 3.88, Hgb 12.2, Hct 37.3, MCV 96.1, MCH 31.4, MCHC 32.7, RDW 14.2, Plt Count 141, MPV 10.7, Gran % 60.7, Lymph % (Auto) 28.7, [place] % (Auto) 9.3 H, Eos % (Auto) 1.1 L, Baso % (Auto) 0.2, Gran # 3.20, Lymph # ( Auto) 1.5, [place] # (Auto) 0.5, Eos # (Auto) 0.1, Baso # (Auto) 0.01 08/17/17 07:35: Phenytoin 12 - Medication Orders Current Medication Orders: Discontinued Medications Lorazepam (Ativan) 1 mg IM ONCE ONE Stop: 08/17/17 07:19 Last Admin: 08/17/17 07:26 Dose: 1 mg IM Administration Charges Document 08/17/17 07:26 SRE (Rec: 08/17/17 07:26 SRE [id number]) Injection Site MAR Injection Site Left Deltoid Charges for Administration # of IM Administrations 1 Potassium Chloride (K-Dur 20 Meq Er Tab) 20 meq PO STAT STA Stop: 08/17/17 08:26 Disposition/Present on Arrival - Present on Arrival Any Indicators Present on Arrival: Yes History of DVT/PE: Yes History of Uncontrolled Diabetes: No Urinary Catheter: No History of Decub. Ulcer: No History Surgical Site Infection Following: None - Disposition Have Diagnosis and Disposition been Completed?: Yes Diagnosis: Anxiety Disposition: HOME/ ROUTINE Disposition Time: 08:43 Patient Plan: Discharge Patient Problems: Current Active Problems Problem Status Onset Anxiety Acute Condition: GOOD Discharge Instructions (ExitCare): Anxiety, Adult (DC) Additional Instructions: Follow-up with your physician tomorrow as scheduled. For any headaches, any chest pain, any shortness of breath, any leg pain or swelling, any abdominal pain, any bleeding, any shakiness, any new or persistent symptoms, get rechecked. Have your liver blood tests monitored as discussed. Take medication only as directed. Prescriptions: LORazepam [Ativan] 1 mg PO TID 2 Days #6 tab Referrals: Jony Sy MD [Primary Care Provider] - Follow up with primary Forms: [employer] (Cuban)
[2017-08-17 07:44] VITALS: RESP 18
[2017-08-17 08:01] LABS: BASO # 0.01 K/mm3 (0.0-2.0); BASO % 0.2 % (0.0-3.0); EOS # 0.1 (0.0-0.7); EOS % 1.1 % (1.5-5.0); GRAN # 3.2 (1.4-6.5); GRAN % 60.7 % (50.0-68.0); HEMOGLOBIN 12.2 g/dL (12.0-16.0); LYMPH # 1.5 (1.2-3.4); LYMPH % 28.7 % (22.0-35.0); MEAN CELL VOLUME 96.1 fl (80.0-105.0); MEAN CORPUSCULAR HEMOGLOBIN 31.4 pg (25.0-35.0); MEAN CORPUSCULAR HGB CONC 32.7 g/dl (31.0-37.0); MEAN PLATELET VOLUME 10.7 fl (7.0-11.0); MONO # 0.5 (0.1-0.6); MONO % 9.3 % (1.0-6.0); RBC 3.88 10^6/uL (3.5-6.1); RED CELL DISTRIBUTION WIDTH 14.2 % (11.5-14.5); WHITE BLOOD COUNT 5.3 10^3/ul (4.5-11.0)
[2017-08-17 08:20] LABS: ALB/GLOB RATIO 1.2 (1.1-1.8); ALBUMIN 3.9 g/dL (3.0-4.8); ALT/SGPT 62 U/L (7-56); AST/SGOT 45 U/L (14-36); BLOOD UREA NITROGEN 12 mg/dL (7-21); CALCIUM 8.3 mg/dL (8.4-10.5); GFR AFRICAN-AMERICAN > 60; GFR NON-AFRICAN AMERICAN > 60
[2017-08-17] MEDS ORDERED: Potassium Chloride 20 mEq ER Tab PO STA (08:25)
[2017-08-17 08:57] VITALS: BP 145/80; PULSE 75; TEMP 97.6; O2SAT 98
== END 2017-08-17 09:00 | disposition home or self-care (01) ==
LOC: ED 06:46
DX: F41.9 Anxiety disorder, unspecified (principal)
CPT/HCPCS: 80053; 80185; 85025; 96372; 99285; J2060

== ENCOUNTER 2017-08-17 20:57 | Emergency (ER) | payer OTHER ==
[2017-08-17 20:58] VITALS: BMI 38.4
--- NOTE | 2017-08-17 21:40 | ED PDOC ---
Arrival/HPI - General Time Seen by Provider: 08/17/17 21:03 Historian: Patient - History of Present Illness Narrative History of Present Illness (Text): 08/17/17 21:40 Justina Abreu is a 61 year old female whose past medical history includes COPD , asthma, anemia, anxiety and seizures, who presents to the emergency department complaining of anxiety. Patient states she has been with her boyfriend in the hospital all day which made her extremely anxious. Patient requesting Ativan. Patient denies any fever, chills, chest pain, shortness of breath, nausea, vomiting, diarrhea, urinary symptoms, back pain, neck pain, headache, dizziness, suicidal/homicidal ideation or any other complaints. Symptom Onset: Gradual Symptom Course: Unchanged Activities at Onset: Light Context: Home Past Medical History - Provider Review Nursing Documentation Reviewed: Yes - Infectious Disease Hx of Infectious Diseases: None - Tetanus Immunization Tetanus Immunization: Up to Date - Past Medical History Past Medical History: Non-Contributing - Cardiac Hx Coronary Artery Disease: Yes Hx Congestive Heart Failure: Yes Hx Hypertension: Yes Hx Peripheral Edema: Yes - Pulmonary Hx Asthma: Yes Hx Bronchitis: Yes Hx Pulmonary Embolism: Yes - Neurological Hx Migraine: Yes Hx Seizures: Yes (epilepsy) - HEENT Hx HEENT Disorder: No - Renal Hx Renal Disorder: No - Hematological/Oncological Hx Anemia: Yes - Integumentary Hx Dermatological Disorder: No - Musculoskeletal/Rheumatological Hx Arthritis: Yes - Gastrointestinal Hx Crohn's Disease: Yes Hx Gall Bladder Disease: Yes Hx Gastritis: Yes Hx Gastrointestinal Ulcer: Yes - Genitourinary/Gynecological Hx Sexually Transmitted Diseases: No - Psychiatric Hx Anxiety: Yes Hx Depression: Yes Hx Substance Use: Yes - Past Surgical History Past Surgical History: Non-Contributing - Surgical History Hx Cholecystectomy: Yes - Anesthesia Hx Anesthesia: Yes Hx Anesthesia Reactions: No Hx Malignant Hyperthermia: No - Suicidal Assessment Feels Threatened In Home Enviroment: No Family/Social History - Physician Review Nursing Documentation Reviewed: Yes Family/Social History: Unknown Family HX Smoking Status: Former Smoker Hx Alcohol Use: No Hx Substance Use: Yes Substance used: PAIN MEDICATION Hx Substance Use Treatment: No Allergies/Home Meds Allergies/Adverse Reactions: Allergies benzethonium chloride Allergy (Intermediate, Verified 08/17/17 21:52) URTICARIA benzocaine Allergy (Unknown, Verified 08/17/17 21:52) ITCHING broccoli Allergy (Unknown, Verified 08/17/17 21:52) ITCHING ketorolac tromethamine [From Toradol] Allergy (Unknown, Verified 08/17/17 21:52) ANAPHYLAXIS lidocaine Allergy (Unknown, Verified 08/17/17 21:52) ITCHING nitroglycerin Allergy (Unknown, Verified 08/17/17 21:52) URTICARIA pineapple Allergy (Unknown, Verified 08/17/17 21:52) ITCHING trazodone Allergy (Unknown, Verified 08/17/17 21:52) "heart flutters", swelling haloperidol [From Haldol] Allergy (Verified 08/17/17 21:52) VOMITING haloperidol lactate [From Haldol] Allergy (Verified 08/17/17 21:52) VOMITING oxycodone Allergy (Verified 08/17/17 21:52) SHORTNESS OF BREATH Unknown reaction, patient refused to answer. ziprasidone HCl [From Geodon] Allergy (Verified 08/17/17 21:52) SHORTNESS OF BREATH palpitations ziprasidone mesylate [From Geodon] Allergy (Verified 08/17/17 21:52) SHORTNESS OF BREATH aspirin Adverse Reaction (Unknown, Verified 08/17/17 21:52) "heart flutters", swelling Lanacane Allergy (Uncoded 08/17/17 21:52) SHORTNESS OF BREATH Unknown reaction, patient refused to answer. Steroids Allergy (Uncoded 08/17/17 21:52) SHORTNESS OF BREATH Unknown reaction, patient refused to answer. steroids Allergy (Uncoded 08/17/17 21:52) "heart flutters", swelling Home Medications: Home Meds Medication Instructions Recorded Confirmed Enoxaparin [Lovenox] 80 mg SC BID 12/18/16 08/10/17 HYDROmorphone [Dilaudid] 2 mg PO QID 12/18/16 08/10/17 LORazepam [Ativan] 2 mg PO TID 12/18/16 08/10/17 Phenytoin [Dilantin] 100 mg PO Q4 07/23/17 08/10/17 Review of Systems - Physician Review All systems were reviewed & negative as marked: Yes - Review of Systems Constitutional: Normal. absent: Fevers Eyes: Normal ENT: Normal Respiratory: Normal. absent: SOB, Cough Cardiovascular: Normal. absent: Chest Pain Gastrointestinal: Normal. absent: Abdominal Pain, Diarrhea, Nausea, Vomiting Genitourinary Female: Normal. absent: Dysuria, Frequency, Hematuria, Urine Output Changes Musculoskeletal: Normal. absent: Back Pain, Neck Pain Skin: Normal. absent: Rash Neurological: Normal. absent: Headache, Dizziness Endocrine: Normal Hemo/Lymphatic: Normal Psychiatric: Anxiety. absent: Depression, Suicidal Ideation Physical Exam Vital Signs Reviewed: Yes Vital Signs Temp Pulse Resp BP Pulse Ox 08/17/17 21:15 98.9 F 82 20 130/82 97 Temperature: Afebrile Blood Pressure: Normal Pulse: Regular Respiratory Rate: Normal Appearance: Positive for: Well-Appearing, Non-Toxic, Comfortable Pain Distress: None Mental Status: Positive for: Alert and Oriented X 3 - Systems Exam Head: Present: Atraumatic, Normocephalic Pupils: Present: PERRL Extroacular Muscles: Present: EOMI Conjunctiva: Present: Normal Mouth: Present: Moist Mucous Membranes Neck: Present: Normal Range of Motion Respiratory/Chest: Present: Clear to Auscultation, Good Air Exchange. No: Respiratory Distress, Accessory Muscle Use Cardiovascular: Present: Regular Rate and Rhythm, Normal S1, S2. No: Murmurs Abdomen: No: Tenderness, Distention, Peritoneal Signs Back: Present: Normal Inspection Upper Extremity: Present: Normal Inspection. No: Cyanosis, Edema Lower Extremity: Present: Normal Inspection. No: Edema Neurological: Present: GCS=15, CN II-XII Intact, Speech Normal Skin: Present: Warm, Dry, Normal Color. No: Rashes Psychiatric: Present: Alert, Oriented x 3, Normal Insight, Normal Concentration Medical Decision Making ED Course and Treatment: 08/17/17 21:40 Impression: 61 year old female complaining of anxiety today, requesting Ativan. Differential Diagnosis included but are not limited to: anxiety Plan: -- Ativan -- Reassess and disposition Prior Visits: Notes and results from previous visits were reviewed. Progress Notes: On re-evaluation, patient feels better and is in no acute distress. I have discussed the results and plan with the patient, who expresses understanding. Patient in agreement with plan to be discharged home. Patient is stable for discharge. Patient was instructed to follow up with physician or return if symptoms worsen or new concerning symptoms arise. - Medication Orders Current Medication Orders: Discontinued Medications Lorazepam (Ativan) 2 mg IM ONCE ONE Stop: 08/17/17 21:55 Last Admin: 08/17/17 22:18 Dose: 2 mg IM Administration Charges Document 08/17/17 22:18 SS (Rec: 08/17/17 22:20 SS [id number]) Injection Site MAR Injection Site Right Deltoid Charges for Administration # of IM Administrations 1 - Scribe Statement The provider has reviewed the documentation as recorded by the Scribe Alyson Echeverria All medical record entries made by the Scribe were at my direction and personally dictated by me. I have reviewed the chart and agree that the record accurately reflects my personal performance of the history, physical exam, medical decision making, and the department course for this patient. I have also personally directed, reviewed, and agree with the discharge instructions and disposition. Disposition/Present on Arrival - Present on Arrival Any Indicators Present on Arrival: No History of DVT/PE: Yes History of Uncontrolled Diabetes: No Urinary Catheter: No History Surgical Site Infection Following: None - Disposition Have Diagnosis and Disposition been Completed?: Yes Diagnosis: Anxiety Disposition: HOME/ ROUTINE Disposition Time: 22:19 Patient Plan: Discharge Condition: GOOD Discharge Instructions (ExitCare): Anxiety, Adult (DC) Additional Instructions: Follow up with your doctor this week as scheduled Referrals: Jony Sy MD [Primary Care Provider] - Follow up with primary Forms: [employer] (Belizean)
[2017-08-17 22:35] VITALS: BP 130/82; PULSE 82; RESP 20; TEMP 98.9; O2SAT 97
== END 2017-08-17 22:36 | disposition home or self-care (01) ==
LOC: ED 20:57
DX: F41.9 Anxiety disorder, unspecified (principal)
CPT/HCPCS: 96372; 99282; J2060

== ENCOUNTER 2017-09-09 20:12 | Emergency (ER) | payer OTHER ==
[2017-09-09 20:12] VITALS: BMI 38.4
[2017-09-09 20:59] VITALS: RESP 16
--- NOTE | 2017-09-09 21:16 | ED PDOC ---
Arrival/HPI - General Chief Complaint: Shortness Of Breath Time Seen by Provider: 09/09/17 20:33 Historian: Patient - History of Present Illness Narrative History of Present Illness (Text): 09/09/17 22:34 Patient is a 61 yo female who states that she lost her Ativan, this afternoon she began feeling anxious and felt shortness of breath and chest pain. Patient states that she feels very nervous without having her medication. Denies any exertional pain. States pain is present when she coughs or moves. Denies acute leg pain or swelling. Denies seizure. Denies suicidal or homicidal ideation. Past Medical History - Infectious Disease Hx of Infectious Diseases: None - Tetanus Immunization Tetanus Immunization: Up to Date - Reproductive Menopause: No - Past Medical History Past Medical History: Non-Contributing - Cardiac Hx Cardiac Disorders: Yes Hx Congestive Heart Failure: Yes Hx Hypertension: Yes Hx Peripheral Edema: Yes - Pulmonary Hx Respiratory Disorders: Yes Hx Asthma: Yes Hx Bronchitis: Yes Hx Pulmonary Embolism: Yes - Neurological Hx Neurological Disorder: Yes Hx Migraine: Yes Hx Seizures: Yes (epilepsy) - HEENT Hx HEENT Disorder: No - Renal Hx Renal Disorder: No - Endocrine/Metabolic Hx Endocrine Disorders: No - Hematological/Oncological Hx Blood Disorders: Yes Hx Anemia: Yes - Integumentary Hx Dermatological Disorder: No - Musculoskeletal/Rheumatological Hx Musculoskeletal Disorders: Yes Hx Arthritis: Yes - Gastrointestinal Hx Gastrointestinal Disorders: Yes Hx Crohn's Disease: Yes Hx Gall Bladder Disease: Yes Hx Gastritis: Yes Hx Gastrointestinal Ulcer: Yes - Genitourinary/Gynecological Hx Genitourinary Disorders: No Hx Sexually Transmitted Diseases: No - Psychiatric Hx Psychophysiologic Disorder: Yes Hx Anxiety: Yes Hx Depression: Yes Hx Substance Use: Yes - Past Surgical History Past Surgical History: Non-Contributing - Surgical History Hx Cholecystectomy: Yes - Anesthesia Hx Anesthesia: Yes Hx Anesthesia Reactions: No Hx Malignant Hyperthermia: No - Suicidal Assessment Feels Threatened In Home Enviroment: No Family/Social History Smoking Status: Former Smoker Hx Alcohol Use: No Hx Substance Use: Yes Substance used: PAIN MEDICATION Hx Substance Use Treatment: No Allergies/Home Meds Allergies/Adverse Reactions: Allergies benzethonium chloride Allergy (Intermediate, Verified 08/17/17 21:52) URTICARIA benzocaine Allergy (Unknown, Verified 08/17/17 21:52) ITCHING broccoli Allergy (Unknown, Verified 08/17/17 21:52) ITCHING ketorolac tromethamine [From Toradol] Allergy (Unknown, Verified 08/17/17 21:52) ANAPHYLAXIS lidocaine Allergy (Unknown, Verified 08/17/17 21:52) ITCHING nitroglycerin Allergy (Unknown, Verified 08/17/17 21:52) URTICARIA pineapple Allergy (Unknown, Verified 08/17/17 21:52) ITCHING trazodone Allergy (Unknown, Verified 08/17/17 21:52) "heart flutters", swelling haloperidol [From Haldol] Allergy (Verified 08/17/17 21:52) VOMITING haloperidol lactate [From Haldol] Allergy (Verified 08/17/17 21:52) VOMITING oxycodone Allergy (Verified 08/17/17 21:52) SHORTNESS OF BREATH Unknown reaction, patient refused to answer. ziprasidone HCl [From Geodon] Allergy (Verified 08/17/17 21:52) SHORTNESS OF BREATH palpitations ziprasidone mesylate [From Geodon] Allergy (Verified 08/17/17 21:52) SHORTNESS OF BREATH aspirin Adverse Reaction (Unknown, Verified 08/17/17 21:52) "heart flutters", swelling Lanacane Allergy (Uncoded 08/17/17 21:52) SHORTNESS OF BREATH Unknown reaction, patient refused to answer. Steroids Allergy (Uncoded 08/17/17 21:52) SHORTNESS OF BREATH Unknown reaction, patient refused to answer. steroids Allergy (Uncoded 08/17/17 21:52) "heart flutters", swelling Home Medications: Home Meds Medication Instructions Recorded Confirmed Enoxaparin [Lovenox] 80 mg SC BID 12/18/16 08/10/17 HYDROmorphone [Dilaudid] 2 mg PO QID 12/18/16 08/10/17 LORazepam [Ativan] 2 mg PO TID 12/18/16 08/10/17 Phenytoin [Dilantin] 100 mg PO Q4 07/23/17 08/10/17 Review of Systems - Review of Systems Constitutional: absent: Fevers Eyes: absent: Vision Changes ENT: absent: Hearing Changes Respiratory: SOB. absent: Cough Cardiovascular: Chest Pain. absent: Edema, [place] Gastrointestinal: absent: Abdominal Pain Genitourinary Female: absent: Dysuria Musculoskeletal: absent: Back Pain Psychiatric: Anxiety. absent: Depression, Suicidal Ideation Physical Exam Vital Signs Reviewed: Yes Vital Signs Temp Pulse Resp Pulse Ox 09/09/17 20:58 16 09/09/17 20:23 98.5 F 93 H 18 97 Temperature: Afebrile Appearance: Positive for: Well-Appearing, Non-Toxic, Comfortable Pain Distress: Mild Mental Status: Positive for: Alert and Oriented X 3 - Systems Exam Head: Present: Atraumatic Pupils: Present: PERRL Extroacular Muscles: Present: EOMI Pharnyx: No: ERYTHEMA Neck: Present: Normal Range of Motion. No: Meningeal Signs Respiratory/Chest: Present: Clear to Auscultation, Tender to Palpation. No: Respiratory Distress Cardiovascular: Present: Regular Rate and Rhythm, Murmurs Abdomen: Present: Distention. No: Tenderness, Normal Bowel Sounds Rectal: No: Gross Blood Back: No: CVA Tenderness Upper Extremity: No: Cyanosis Lower Extremity: Present: NORMAL PULSES, Neurovascularly Intact. No: CALF TENDERNESS Neurological: Present: Speech Normal, Motor Func Grossly Intact, Normal Sensory Function, Gait Normal Skin: Present: Warm Psychiatric: Present: Alert, Normal Insight, Normal Concentration, Anxious. No : Depressed Mood, Suicidal Ideation, Homicidal Ideation Medical Decision Making ED Course and Treatment: 09/09/17 22:44 Patient reports that she does not have her Ativan which she normally takes. She states she believes it might have been taken. She states that she began to feel anxious. I feel sensation of chest pain and shortness of breath unlikely cardiac or pulmonary in nature as it was associated with anxiety and her chest pain is CLEARLY palpable, worse with movements. No wheezing or hypoxia noted. CXR unremarkable. She has had past recent unremarkable cardiac workup. Ativan administered for anxiety, she states she feels better and wishes to go home. No exertional chest pain, no shortness of breath on re-evaluation. Risks of noncompliance with medication and follow-up reviewed with patient. NO CHEST PAIN OR SOB on re-evaluation. Ambulatory with no discomfort. 09/09/17 22:47 No suicidal or homicidal ideation reported. Currently denies depression. - RAD Interpretation Radiology Orders: 09/09/17 21:01 CHEST PORTABLE [RAD] Stat - Medication Orders Current Medication Orders: Discontinued Medications Lorazepam (Ativan) 1 mg IM ONCE ONE Stop: 09/09/17 21:22 Last Admin: 09/09/17 21:43 Dose: 1 mg IM Administration Charges Document 09/09/17 21:43 MS (Rec: 09/09/17 21:43 MS [facility] Injection Site MAR Injection Site Right Deltoid Charges for Administration # of IM Administrations 1 Disposition/Present on Arrival - Present on Arrival Any Indicators Present on Arrival: Yes History of DVT/PE: Yes History of Uncontrolled Diabetes: No Urinary Catheter: No History of Decub. Ulcer: No History Surgical Site Infection Following: None - Disposition Have Diagnosis and Disposition been Completed?: Yes Diagnosis: Anxiety Disposition: HOME/ ROUTINE Disposition Time: 22:46 Patient Plan: Discharge Patient Problems: Current Active Problems Problem Status Onset Anxiety Acute Condition: GOOD Discharge Instructions (ExitCare): Anxiety, Adult (DC) Additional Instructions: For ANY chest pain, any shortness of breath, any bleeding, any new leg pain or swelling, any shakiness, any persistent or worsening of symptoms, get rechecked. Follow-up with your physician in 1-2 days. Prescriptions: LORazepam [Ativan] 1 mg PO TID PRN #6 tab PRN Reason: Anxiety Referrals: Jony Sy MD [Primary Care Provider] - Follow up with primary Forms: [employer] (Polish)
[2017-09-09 23:00] VITALS: BP 165/91; PULSE 80; TEMP 98.6; O2SAT 98
--- NOTE | 2017-09-10 11:16 | RAD ---
HISTORY: chest pain COMPARISON: 06/14/2017 FINDINGS: LUNGS: No active pulmonary disease. PLEURA: No significant pleural effusion identified, no pneumothorax apparent. CARDIOVASCULAR: Normal. OSSEOUS STRUCTURES: No significant abnormalities. VISUALIZED UPPER ABDOMEN: Normal. OTHER FINDINGS: None. IMPRESSION: No active disease.
--- NOTE | 2017-09-10 16:52 | CARD ---
APPROVED REPORT EKG Measurement Heart [id number] <Conclusion> Normal sinus rhythm Possible Left atrial enlargement ST & T wave abnormality, consider inferior ischemia Abnormal ECG
== END 2017-09-09 22:54 | disposition home or self-care (01) ==
LOC: ED 20:12
DX: F41.9 Anxiety disorder, unspecified (principal); Z87.891 Personal history of nicotine dependence; I10 Essential (primary) hypertension; I50.9 Heart failure, unspecified
CPT/HCPCS: 71045; 93005; 96372; 99283; J2060

== ENCOUNTER 2017-09-11 14:59 | Emergency (ER) | payer OTHER ==
[2017-09-11 15:00] VITALS: BMI 38.4
[2017-09-11 15:29] VITALS: RESP 18; TEMP 98.5
--- NOTE | 2017-09-11 16:05 | ED PDOC ---
Arrival/HPI <Pebbles Ayala - Last Filed: 09/11/17 16:14> <Pilar BOUCHERCj - Last Filed: 09/11/17 21:57> - General Time Seen by Provider: 09/11/17 15:14 - History of Present Illness Narrative History of Present Illness (Text): 09/11/17 15:55 Patient is a 62 year old female with an extensive past medical history, including COPD, asthma, anemia, anxiety and seizures, who presents to the Emergency department because she is out of her Ativan. Patient states "I have been taking Ativan for many years and if I stop taking it I will get pain and have a stroke". Patient was here 2 days ago and was given a 2 day supply of Ativan 1 mg three times daily as needed. Patient says she filled this 2 days ago and took them as prescribed, however, when she showed me the pill bottle, it showed it was filled yesterday on the , and it is now empty. Patient says the bottle is wrong. Patient says the reason she was here a few days ago is because she lost her prescription that she had 3 refills on. I asked her why she did not go to her primary doctor's office for this and she said she went to see Dr. Sy but he would not give her more. Dr. Quezada spoke with Dr. Sy today who said the patient has had problems with Ativan in the past but refuses to get detox. He says she came to his office on Friday and he would not give her more until her refill was due so the patient must have come to the ER after leaving his office on Friday. Dr. Sy agrees with our decision not to give more Ativan and said he will see her in his office. Patient denies seizures and suicidal/homicidal ideation. (Pebbles Ayala) Past Medical History - Infectious Disease Hx of Infectious Diseases: None - Tetanus Immunization Tetanus Immunization: Up to Date - Reproductive Menopause: Yes - Past Medical History Past Medical History: Non-Contributing - Cardiac Hx Cardiac Disorders: Yes Hx Congestive Heart Failure: Yes Hx Hypertension: Yes Hx Peripheral Edema: Yes - Pulmonary Hx Respiratory Disorders: Yes Hx Asthma: Yes Hx Bronchitis: Yes Hx Pulmonary Embolism: Yes - Neurological Hx Neurological Disorder: Yes Hx Migraine: Yes Hx Seizures: Yes (epilepsy) - HEENT Hx HEENT Disorder: No - Renal Hx Renal Disorder: No - Endocrine/Metabolic Hx Endocrine Disorders: No - Hematological/Oncological Hx Blood Disorders: Yes Hx Anemia: Yes - Integumentary Hx Dermatological Disorder: No - Musculoskeletal/Rheumatological Hx Musculoskeletal Disorders: Yes Hx Arthritis: Yes - Gastrointestinal Hx Gastrointestinal Disorders: Yes Hx Crohn's Disease: Yes Hx Gall Bladder Disease: Yes Hx Gastritis: Yes Hx Gastrointestinal Ulcer: Yes - Genitourinary/Gynecological Hx Genitourinary Disorders: No Hx Sexually Transmitted Diseases: No - Psychiatric Hx Psychophysiologic Disorder: Yes Hx Anxiety: Yes Hx Depression: Yes Hx Substance Use: Yes - Past Surgical History Past Surgical History: Non-Contributing - Surgical History Hx Cholecystectomy: Yes - Anesthesia Hx Anesthesia: Yes Hx Anesthesia Reactions: No Hx Malignant Hyperthermia: No - Suicidal Assessment Feels Threatened In Home Enviroment: No <Pebbles Ayala - Last Filed: 09/11/17 16:14> Family/Social History Family/Social History: Unknown Family HX Smoking Status: Former Smoker Hx Alcohol Use: No Hx Substance Use: Yes Substance used: PAIN MEDICATION Hx Substance Use Treatment: No <Pebbles Ayala - Last Filed: 09/11/17 16:14> Allergies/Home Meds <Pebbles Ayala - Last Filed: 09/11/17 16:14> <Cj Quezada DO - Last Filed: 09/11/17 21:57> Allergies/Adverse Reactions: Allergies benzethonium chloride Allergy (Intermediate, Verified 08/17/17 21:52) URTICARIA benzocaine Allergy (Unknown, Verified 08/17/17 21:52) ITCHING broccoli Allergy (Unknown, Verified 08/17/17 21:52) ITCHING ketorolac tromethamine [From Toradol] Allergy (Unknown, Verified 08/17/17 21:52) ANAPHYLAXIS lidocaine Allergy (Unknown, Verified 08/17/17 21:52) ITCHING nitroglycerin Allergy (Unknown, Verified 08/17/17 21:52) URTICARIA pineapple Allergy (Unknown, Verified 08/17/17 21:52) ITCHING trazodone Allergy (Unknown, Verified 08/17/17 21:52) "heart flutters", swelling haloperidol [From Haldol] Allergy (Verified 08/17/17 21:52) VOMITING haloperidol lactate [From Haldol] Allergy (Verified 08/17/17 21:52) VOMITING oxycodone Allergy (Verified 08/17/17 21:52) SHORTNESS OF BREATH Unknown reaction, patient refused to answer. ziprasidone HCl [From Geodon] Allergy (Verified 08/17/17 21:52) SHORTNESS OF BREATH palpitations ziprasidone mesylate [From Geodon] Allergy (Verified 08/17/17 21:52) SHORTNESS OF BREATH aspirin Adverse Reaction (Unknown, Verified 08/17/17 21:52) "heart flutters", swelling Lanacane Allergy (Uncoded 08/17/17 21:52) SHORTNESS OF BREATH Unknown reaction, patient refused to answer. Steroids Allergy (Uncoded 08/17/17 21:52) SHORTNESS OF BREATH Unknown reaction, patient refused to answer. steroids Allergy (Uncoded 08/17/17 21:52) "heart flutters", swelling Home Medications: Home Meds Medication Instructions Recorded Confirmed Enoxaparin [Lovenox] 80 mg SC BID 12/18/16 08/10/17 HYDROmorphone [Dilaudid] 2 mg PO QID 12/18/16 08/10/17 LORazepam [Ativan] 2 mg PO TID 12/18/16 08/10/17 Phenytoin [Dilantin] 100 mg PO Q4 07/23/17 08/10/17 Review of Systems - Physician Review All systems were reviewed & negative as marked: Yes - Review of Systems Eyes: absent: Vision Changes ENT: absent: Hearing Changes Respiratory: absent: SOB Cardiovascular: absent: Chest Pain Gastrointestinal: absent: Abdominal Pain Neurological: absent: Headache, Dizziness Psychiatric: Anxiety. absent: Suicidal Ideation <Pebbles Ayala - Last Filed: 09/11/17 16:14> Physical Exam Temperature: Afebrile Blood Pressure: Hypertensive Pulse: Tachycardic Respiratory Rate: Normal Appearance: Positive for: Non-Toxic, Comfortable Pain Distress: None Mental Status: Positive for: Alert and Oriented X 3 - Systems Exam Head: Present: Atraumatic, Normocephalic Pupils: Present: PERRL Extroacular Muscles: Present: EOMI Conjunctiva: Present: Normal Mouth: Present: Moist Mucous Membranes Neck: Present: Normal Range of Motion Respiratory/Chest: Present: Clear to Auscultation, Good Air Exchange. No: Respiratory Distress, Accessory Muscle Use Cardiovascular: Present: Regular Rate and Rhythm, Normal S1, S2. No: Murmurs Abdomen: No: Tenderness, Distention, Peritoneal Signs Upper Extremity: Present: Normal Inspection. No: Cyanosis, Edema Lower Extremity: Present: Normal Inspection. No: Edema Neurological: Present: GCS=15, Speech Normal Skin: Present: Warm, Dry, Normal Color. No: Rashes Psychiatric: Present: Alert, Oriented x 3, Normal Insight, Normal Concentration. No: Suicidal Ideation, Homicidal Ideation <Pebbles Ayala - Last Filed: 09/11/17 16:14> Vital Signs Reviewed: Yes <Cj Quezada DO - Last Filed: 09/11/17 21:57> Vital Signs Temp Pulse Resp BP Pulse Ox 09/11/17 16:36 90 18 154/62 H 100 09/11/17 15:28 98.5 F 100 H 18 152/78 H 99 Medical Decision Making <Pebbles Ayala - Last Filed: 09/11/17 16:14> <jC Quezada DO - Last Filed: 09/11/17 21:57> ED Course and Treatment: 09/11/17 16:20 Dr. Quezada spoke with Dr. Sy today who said the patient has had problems with Ativan in the past but refuses to get detox. He agrees with our decision not to give more Ativan and said he will see her in his office. 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 / has examined the patient and agrees with the treatment plan. <Pebbles Ayala - Last Filed: 09/11/17 16:14> Disposition/Present on Arrival - Present on Arrival Any Indicators Present on Arrival: Yes History of DVT/PE: Yes History of Uncontrolled Diabetes: No Urinary Catheter: No History of Decub. Ulcer: No History Surgical Site Infection Following: None - Disposition Have Diagnosis and Disposition been Completed?: Yes Disposition Time: 16:22 <Pebbles Ayala - Last Filed: 09/11/17 16:14> - Present on Arrival Any Indicators Present on Arrival: No <Cj Quezada DO - Last Filed: 09/11/17 21:57> - Disposition Diagnosis: Anxiety Disposition: HOME/ ROUTINE Condition: STABLE Discharge Instructions (ExitCare): Anxiety, Adult (DC) Additional Instructions: Please follow up with your primary care provider as soon as possible. Referrals: Jony Sy MD [Primary Care Provider] - Follow up with primary Forms: [employer] ([place])
[2017-09-11 16:37] VITALS: BP 154/62; PULSE 90; O2SAT 100
--- NOTE | 2017-09-11 22:33 | CARD ---
APPROVED REPORT EKG Measurement Heart [id number] <Conclusion> Normal sinus rhythm Minimal voltage criteria for LVH, may be normal variant Possible Inferior infarct, age undetermined Abnormal ECG
== END 2017-09-11 17:07 | disposition home or self-care (01) ==
LOC: ED 14:59
DX: F41.9 Anxiety disorder, unspecified (principal); I11.0 Hypertensive heart disease with heart failure; I50.9 Heart failure, unspecified; Z87.891 Personal history of nicotine dependence

== ENCOUNTER 2017-09-12 02:16 | Emergency (ER) | payer OTHER ==
[2017-09-12 02:17] VITALS: BMI 38.4
[2017-09-12 02:59] VITALS: RESP 17; O2SAT 100
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
[2017-09-12 04:44] VITALS: BP 138/89; PULSE 89; TEMP 98
--- NOTE | 2017-09-12 19:01 | CARD ---
APPROVED REPORT EKG Measurement Heart [id number] <Conclusion> Normal sinus rhythm Normal ECG
== END 2017-09-12 04:44 | disposition home or self-care (01) ==
LOC: ED 02:16
DX: F13.20 Sedative, hypnotic or anxiolytic dependence, uncomplicated (principal); I10 Essential (primary) hypertension; Z87.891 Personal history of nicotine dependence
CPT/HCPCS: 93005; 96372; 99283; J2060

== ENCOUNTER 2017-09-15 09:00 | Emergency (ER) | payer OTHER ==
[2017-09-15 09:01] VITALS: BMI 38.4
[2017-09-15 09:19] VITALS: RESP 18; TEMP 98.7; O2SAT 97
--- NOTE | 2017-09-15 09:49 | ED PDOC ---
Arrival/HPI - General Chief Complaint: Anxiety Time Seen by Provider: 09/15/17 09:02 Historian: Patient - History of Present Illness Narrative History of Present Illness (Text): 09/15/17 09:46 62yo female with PMHx of Anxiety bib EMS for anxiety. Patient states she misplaced her Ativan last week Friday. States she is due for another refill, next week Friday and her pharmacist is refusing to refill her prescription till then. She denies chest pain, SOB, diaphoresis, abdominal pain, nausea, vomiting , back pain, LE edema, calf pain, SI/HI, melena, hematemesis, any other complaint. Past Medical History - Provider Review Nursing Documentation Reviewed: Yes - Infectious Disease Hx of Infectious Diseases: None - Tetanus Immunization Tetanus Immunization: Up to Date - Past Medical History Past Medical History: Non-Contributing - Cardiac Hx Cardiac Disorders: Yes Hx Congestive Heart Failure: Yes Hx Hypertension: Yes Hx Peripheral Edema: Yes - Pulmonary Hx Respiratory Disorders: Yes Hx Asthma: Yes Hx Bronchitis: Yes Hx Pulmonary Embolism: Yes - Neurological Hx Neurological Disorder: Yes Hx Migraine: Yes Hx Seizures: Yes (epilepsy) - HEENT Hx HEENT Disorder: No - Renal Hx Renal Disorder: No - Endocrine/Metabolic Hx Endocrine Disorders: No - Hematological/Oncological Hx Blood Disorders: Yes Hx Anemia: Yes - Integumentary Hx Dermatological Disorder: No - Musculoskeletal/Rheumatological Hx Musculoskeletal Disorders: Yes Hx Arthritis: Yes - Gastrointestinal Hx Gastrointestinal Disorders: Yes Hx Crohn's Disease: Yes Hx Gall Bladder Disease: Yes Hx Gastritis: Yes Hx Gastrointestinal Ulcer: Yes - Genitourinary/Gynecological Hx Genitourinary Disorders: No Hx Sexually Transmitted Diseases: No - Psychiatric Hx Psychophysiologic Disorder: Yes Hx Anxiety: Yes Hx Depression: Yes Hx Substance Use: Yes - Past Surgical History Past Surgical History: Non-Contributing - Surgical History Hx Cholecystectomy: Yes - Anesthesia Hx Anesthesia: Yes Hx Anesthesia Reactions: No Hx Malignant Hyperthermia: No - Suicidal Assessment Feels Threatened In Home Enviroment: No Family/Social History - Physician Review Nursing Documentation Reviewed: Yes Family/Social History: Unknown Family HX Smoking Status: Former Smoker Hx Alcohol Use: No Hx Substance Use: Yes Substance used: PAIN MEDICATION Hx Substance Use Treatment: No Allergies/Home Meds Allergies/Adverse Reactions: Allergies benzethonium chloride Allergy (Intermediate, Verified 09/15/17 09:17) URTICARIA benzocaine Allergy (Unknown, Verified 09/15/17 09:17) ITCHING broccoli Allergy (Unknown, Verified 09/15/17 09:17) ITCHING ketorolac tromethamine [From Toradol] Allergy (Unknown, Verified 09/15/17 09:17) ANAPHYLAXIS lidocaine Allergy (Unknown, Verified 09/15/17 09:17) ITCHING nitroglycerin Allergy (Unknown, Verified 09/15/17 09:17) URTICARIA pineapple Allergy (Unknown, Verified 09/15/17 09:17) ITCHING trazodone Allergy (Unknown, Verified 09/15/17 09:17) "heart flutters", swelling haloperidol [From Haldol] Allergy (Verified 09/15/17 09:17) VOMITING haloperidol lactate [From Haldol] Allergy (Verified 09/15/17 09:17) VOMITING oxycodone Allergy (Verified 09/15/17 09:17) SHORTNESS OF BREATH Unknown reaction, patient refused to answer. ziprasidone HCl [From Geodon] Allergy (Verified 09/15/17 09:17) SHORTNESS OF BREATH palpitations ziprasidone mesylate [From Geodon] Allergy (Verified 09/15/17 09:17) SHORTNESS OF BREATH aspirin Adverse Reaction (Unknown, Verified 09/15/17 09:17) "heart flutters", swelling Lanacane Allergy (Uncoded 09/15/17 09:17) SHORTNESS OF BREATH Unknown reaction, patient refused to answer. Steroids Allergy (Uncoded 09/15/17 09:17) SHORTNESS OF BREATH Unknown reaction, patient refused to answer. steroids Allergy (Uncoded 09/15/17 09:17) "heart flutters", swelling Home Medications: Home Meds Medication Instructions Recorded Confirmed Enoxaparin [Lovenox] 80 mg SC BID 12/18/16 09/15/17 LORazepam [Ativan] 2 mg PO TID 12/18/16 09/15/17 Phenytoin [Dilantin] 100 mg PO Q4 07/23/17 09/15/17 Review of Systems - Physician Review All systems were reviewed & negative as marked: Yes - Review of Systems Constitutional: Normal Eyes: Normal ENT: Normal Respiratory: Normal Cardiovascular: Normal Gastrointestinal: Normal Genitourinary Female: Normal Musculoskeletal: Normal Skin: Normal Neurological: Normal Endocrine: Normal Hemo/Lymphatic: Normal Psychiatric: Anxiety. absent: Suicidal Ideation Physical Exam Vital Signs Reviewed: Yes Vital Signs Temp Pulse Resp BP Pulse Ox 09/15/17 11:38 98.7 F 90 18 132/90 97 09/15/17 09:19 98.7 F 96 H 18 145/110 H 97 Temperature: Afebrile Blood Pressure: Normal Pulse: Regular Respiratory Rate: Normal Appearance: Positive for: Well-Appearing, Non-Toxic, Comfortable Pain Distress: None Mental Status: Positive for: Alert and Oriented X 3 - Systems Exam Head: Present: Atraumatic, Normocephalic Pupils: Present: PERRL Extroacular Muscles: Present: EOMI Conjunctiva: Present: Normal Mouth: Present: Moist Mucous Membranes Neck: Present: Normal Range of Motion Respiratory/Chest: Present: Clear to Auscultation, Good Air Exchange. No: Respiratory Distress, Accessory Muscle Use Cardiovascular: Present: Regular Rate and Rhythm, Normal S1, S2. No: Murmurs Abdomen: No: Tenderness, Distention, Peritoneal Signs Back: Present: Normal Inspection Upper Extremity: Present: Normal Inspection. No: Cyanosis, Edema Lower Extremity: Present: Normal Inspection. No: Edema Neurological: Present: GCS=15, CN II-XII Intact, Speech Normal Skin: Present: Warm, Dry, Normal Color. No: Rashes Psychiatric: Present: Alert, Oriented x 3, Normal Insight, Normal Concentration Medical Decision Making ED Course and Treatment: 09/15/17 20:08 PT presented for stated history. she denies chest pain, SOB, diaphoresis, back pain, nausea, vomiting. She was given Ativan in ED and on re evaluation notes that her anxiety resolved. Her chart was reviewed and pt has been seen multiple times in ED for same complaint. Her last visit was 09/12/17. she was advised to f/u with her PMD. - Medication Orders Current Medication Orders: Discontinued Medications Lorazepam (Ativan) 2 mg IM ONCE ONE PRN Reason: Protocol Stop: 09/15/17 09:22 Last Admin: 09/15/17 09:38 Dose: 2 mg IM Administration Charges Document 09/15/17 09:38 OCS (Rec: 09/15/17 09:38 OCS [id number]) Injection Site MAR Injection Site Left Deltoid Charges for Administration # of IM Administrations 1 Disposition/Present on Arrival - Present on Arrival Any Indicators Present on Arrival: No History of DVT/PE: Yes History of Uncontrolled Diabetes: No Urinary Catheter: No History of Decub. Ulcer: No History Surgical Site Infection Following: None - Disposition Have Diagnosis and Disposition been Completed?: Yes Diagnosis: Anxiety Disposition: HOME/ ROUTINE Disposition Time: 11:25 Patient Plan: Discharge Condition: STABLE Discharge Instructions (ExitCare): Anxiety, Adult (DC) Additional Instructions: Follow up with your Doctor Return to ED for new symptoms Referrals: [facility] [place] [Outside] - Follow up with primary Forms: [employer] ([place])
[2017-09-15 11:40] VITALS: BP 132/90; PULSE 90
== END 2017-09-15 11:38 | disposition home or self-care (01) ==
LOC: ED 09:00
DX: F41.9 Anxiety disorder, unspecified (principal)
CPT/HCPCS: 96372; 99282; J2060

== ENCOUNTER 2017-09-15 22:38 | Emergency (ER) | payer OTHER ==
[2017-09-15 22:39] VITALS: BMI 38.4
[2017-09-15 23:18] VITALS: RESP 14; O2SAT 97
--- NOTE | 2017-09-15 23:46 | ED PDOC ---
Arrival/HPI - General Chief Complaint: Anxiety Time Seen by Provider: 09/15/17 22:40 Historian: Patient - History of Present Illness Narrative History of Present Illness (Text): 09/15/17 23:46 62 year old female, whose past medical history includes including COPD, asthma, anemia, anxiety and seizures, presents to the emergency department complaining of reoccurring anxiety. Patient states she does no have her oral medication and is requesting a shot of Ativan to help her through the night until she could see her doctor tomorrow. Patient denies any fever, chills, chest pain, shortness of breath, abdominal pain, nausea, vomiting, diarrhea, urinary symptoms, back pain, neck pain, headache, dizziness, suicidal/homicidal ideation , or any other complaints. Symptom Onset: Gradual Symptom Course: Unchanged Activities at Onset: Light Context: Home Past Medical History - Provider Review Nursing Documentation Reviewed: Yes - Infectious Disease Hx of Infectious Diseases: None - Tetanus Immunization Tetanus Immunization: Up to Date - Past Medical History Past Medical History: Non-Contributing - Cardiac Hx Cardiac Disorders: Yes Hx Congestive Heart Failure: Yes Hx Hypertension: Yes Hx Peripheral Edema: Yes - Pulmonary Hx Respiratory Disorders: Yes Hx Asthma: Yes Hx Bronchitis: Yes Hx Pulmonary Embolism: Yes - Neurological Hx Neurological Disorder: Yes Hx Migraine: Yes Hx Seizures: Yes (epilepsy) - HEENT Hx HEENT Disorder: No - Renal Hx Renal Disorder: No - Endocrine/Metabolic Hx Endocrine Disorders: No - Hematological/Oncological Hx Blood Disorders: Yes Hx Anemia: Yes - Integumentary Hx Dermatological Disorder: No - Musculoskeletal/Rheumatological Hx Musculoskeletal Disorders: Yes Hx Arthritis: Yes - Gastrointestinal Hx Gastrointestinal Disorders: Yes Hx Crohn's Disease: Yes Hx Gall Bladder Disease: Yes Hx Gastritis: Yes Hx Gastrointestinal Ulcer: Yes - Genitourinary/Gynecological Hx Genitourinary Disorders: No Hx Sexually Transmitted Diseases: No - Psychiatric Hx Psychophysiologic Disorder: Yes Hx Anxiety: Yes Hx Depression: Yes Hx Substance Use: Yes - Past Surgical History Past Surgical History: Non-Contributing - Surgical History Hx Cholecystectomy: Yes - Anesthesia Hx Anesthesia: Yes Hx Anesthesia Reactions: No Hx Malignant Hyperthermia: No - Suicidal Assessment Feels Threatened In Home Enviroment: No Family/Social History - Physician Review Nursing Documentation Reviewed: Yes Family/Social History: No Known Family HX Smoking Status: Former Smoker Hx Alcohol Use: No Hx Substance Use: Yes Substance used: PAIN MEDICATION Hx Substance Use Treatment: No Allergies/Home Meds Allergies/Adverse Reactions: Allergies benzethonium chloride Allergy (Intermediate, Verified 09/15/17 09:17) URTICARIA benzocaine Allergy (Unknown, Verified 09/15/17 09:17) ITCHING broccoli Allergy (Unknown, Verified 09/15/17 09:17) ITCHING ketorolac tromethamine [From Toradol] Allergy (Unknown, Verified 09/15/17 09:17) ANAPHYLAXIS lidocaine Allergy (Unknown, Verified 09/15/17 09:17) ITCHING nitroglycerin Allergy (Unknown, Verified 09/15/17 09:17) URTICARIA pineapple Allergy (Unknown, Verified 09/15/17 09:17) ITCHING trazodone Allergy (Unknown, Verified 09/15/17 09:17) "heart flutters", swelling haloperidol [From Haldol] Allergy (Verified 09/15/17 09:17) VOMITING haloperidol lactate [From Haldol] Allergy (Verified 09/15/17 09:17) VOMITING oxycodone Allergy (Verified 09/15/17 09:17) SHORTNESS OF BREATH Unknown reaction, patient refused to answer. ziprasidone HCl [From Geodon] Allergy (Verified 09/15/17 09:17) SHORTNESS OF BREATH palpitations ziprasidone mesylate [From Geodon] Allergy (Verified 09/15/17 09:17) SHORTNESS OF BREATH aspirin Adverse Reaction (Unknown, Verified 09/15/17 09:17) "heart flutters", swelling Lanacane Allergy (Uncoded 09/15/17 09:17) SHORTNESS OF BREATH Unknown reaction, patient refused to answer. Steroids Allergy (Uncoded 09/15/17 09:17) SHORTNESS OF BREATH Unknown reaction, patient refused to answer. steroids Allergy (Uncoded 09/15/17 09:17) "heart flutters", swelling Home Medications: Home Meds Medication Instructions Recorded Confirmed Enoxaparin [Lovenox] 80 mg SC BID 12/18/16 09/15/17 LORazepam [Ativan] 2 mg PO TID 12/18/16 09/15/17 Phenytoin [Dilantin] 100 mg PO Q4 07/23/17 09/15/17 Review of Systems - Physician Review All systems were reviewed & negative as marked: Yes - Review of Systems Constitutional: absent: Fevers, Other (Chills) Respiratory: absent: SOB Cardiovascular: absent: Chest Pain Gastrointestinal: absent: Abdominal Pain, Diarrhea, Nausea, Vomiting Genitourinary Female: absent: Dysuria, Frequency, Hematuria Musculoskeletal: absent: Back Pain, Neck Pain Neurological: absent: Headache, Dizziness Psychiatric: Anxiety. absent: Depression, Suicidal Ideation (/homicidal ideation) Physical Exam Vital Signs Reviewed: Yes Vital Signs Temp Pulse Resp BP Pulse Ox 09/15/17 23:18 98.6 F 86 14 117/87 97 Temperature: Afebrile Blood Pressure: Normal Pulse: Regular Respiratory Rate: Normal Appearance: Positive for: Well-Appearing, Non-Toxic, Comfortable, Other ( Slighty anxious) Pain Distress: None Mental Status: Positive for: Alert and Oriented X 3 - Systems Exam Head: Present: Atraumatic, Normocephalic Pupils: Present: PERRL Extroacular Muscles: Present: EOMI Conjunctiva: Present: Normal Mouth: Present: Moist Mucous Membranes Neck: Present: Normal Range of Motion Respiratory/Chest: Present: Clear to Auscultation, Good Air Exchange. No: Respiratory Distress, Accessory Muscle Use Cardiovascular: Present: Regular Rate and Rhythm, Normal S1, S2. No: Murmurs Abdomen: No: Tenderness, Distention, Peritoneal Signs Back: Present: Normal Inspection Upper Extremity: Present: Normal Inspection. No: Cyanosis, Edema Lower Extremity: Present: Normal Inspection. No: Edema Neurological: Present: GCS=15, CN II-XII Intact, Speech Normal Skin: Present: Warm, Dry, Normal Color. No: Rashes Psychiatric: Present: Alert, Oriented x 3, Normal Insight, Normal Concentration , Anxious (Slight anxious) Medical Decision Making ED Course and Treatment: 09/15/17 23:46 Impression: 62 year old female presents complaining of reoccurring anxiety and requesting shot of Ativan. Plan: -- Ativan -- Reassess and disposition Prior Visits: Notes and results from previous visits were reviewed. On 09/15/17 patient came in complaining of misplacement of her Ativan. Patient was discharged. Progress Notes: 09/15/17 23:50 On reevaluation the patient feels better and is in no acute distress. I have discussed the results and plan with the patient, who expresses understanding. Patient given the opportunity to ask question, all questions were answered and there is agreement with the plan to discharge the patient home. Patient is stable for discharge. Patient was instructed to follow up with physician/clinic in 1-2 days or return if symptoms persist/worsen or new concerning symptoms arise. - Medication Orders Current Medication Orders: Discontinued Medications Lorazepam (Ativan) 2 mg IM ONCE ONE Stop: 09/15/17 23:47 Last Admin: 09/15/17 23:59 Dose: 2 mg - Scribe Statement The provider has reviewed the documentation as recorded by the Barber Gilmore Provider Mattieibe Attestation: All medical record entries made by the Barber were at my direction and personally dictated by me. I have reviewed the chart and agree that the record accurately reflects my personal performance of the history, physical exam, medical decision making, and the department course for this patient. I have also personally directed, reviewed, and agree with the discharge instructions and disposition. Disposition/Present on Arrival - Present on Arrival Any Indicators Present on Arrival: No History of DVT/PE: Yes History of Uncontrolled Diabetes: No Urinary Catheter: No History of Decub. Ulcer: No History Surgical Site Infection Following: None - Disposition Have Diagnosis and Disposition been Completed?: Yes Diagnosis: Anxiety Disposition: HOME/ ROUTINE Disposition Time: 23:48 Patient Plan: Discharge Patient Problems: Current Active Problems Problem Status Onset Anxiety Acute Condition: GOOD Discharge Instructions (ExitCare): Anxiety, Adult (DC) Additional Instructions: Follow up with your doctor tommorrow. Referrals: Ida Kumar, [Primary Care Provider] - Follow up with primary Forms: [employer] ([place])
[2017-09-16 00:17] VITALS: BP 120/86; PULSE 88; TEMP 98.7
== END 2017-09-16 00:17 | disposition home or self-care (01) ==
LOC: ED 22:38
DX: F41.9 Anxiety disorder, unspecified (principal)
CPT/HCPCS: 96372; 99284; J2060

== ENCOUNTER 2017-09-17 11:53 | Emergency (ER) | payer OTHER ==
[2017-09-17 11:53] VITALS: BMI 38.4
[2017-09-17 12:16] VITALS: RESP 18
--- NOTE | 2017-09-17 13:00 | ED PDOC ---
Arrival/HPI - General Chief Complaint: Chest Pain Time Seen by Provider: 09/17/17 12:39 Historian: Patient - History of Present Illness Narrative History of Present Illness (Text): 09/17/17 12:50 Patient is a 62 year old female whose past medical history includes CHF, hypertension, peripheral edema, pulmonary embolism, and seizures, who presents to the Emergency Department complaining of chest pain for the past 4 days. Patient reports that she takes Ativan for her chest pain but her prescription has run out. She normally takes Ativan 2mg BID, but her pharmacy is unable to fill her prescription until 09/22/17. However, the pharmacy is willing to fill a prescription for 1mg BID. She hasn't been able to contact her PMD and is currently requesting an injection of Ativan 2mg. She is also requesting a prescription for Ativan 1mg BID for 4 days that will cover her until 09/22. Patient mentions palpitations but denies fevers, chills, headache, dizziness, dyspnea, dyspnea on exertion, cough, abdominal pain, nausea, vomiting, diarrhea , back pain, neck pain, or any other complaints. Time/Duration: < week Symptom Onset: Sudden Symptom Course: Unchanged Context: Home Past Medical History - Provider Review Nursing Documentation Reviewed: Yes - Infectious Disease Hx of Infectious Diseases: None - Tetanus Immunization Tetanus Immunization: Up to Date - Past Medical History Past Medical History: Non-Contributing - Cardiac Hx Cardiac Disorders: Yes Hx Congestive Heart Failure: Yes Hx Hypertension: Yes Hx Peripheral Edema: Yes - Pulmonary Hx Respiratory Disorders: Yes Hx Asthma: Yes Hx Bronchitis: Yes Hx Pulmonary Embolism: Yes - Neurological Hx Neurological Disorder: Yes Hx Migraine: Yes Hx Seizures: Yes (epilepsy) - HEENT Hx HEENT Disorder: No - Renal Hx Renal Disorder: No - Endocrine/Metabolic Hx Endocrine Disorders: No - Hematological/Oncological Hx Blood Disorders: Yes Hx Anemia: Yes - Integumentary Hx Dermatological Disorder: No - Musculoskeletal/Rheumatological Hx Musculoskeletal Disorders: Yes Hx Arthritis: Yes - Gastrointestinal Hx Gastrointestinal Disorders: Yes Hx Crohn's Disease: Yes Hx Gall Bladder Disease: Yes Hx Gastritis: Yes Hx Gastrointestinal Ulcer: Yes - Genitourinary/Gynecological Hx Genitourinary Disorders: No Hx Sexually Transmitted Diseases: No - Psychiatric Hx Psychophysiologic Disorder: Yes Hx Anxiety: Yes Hx Depression: Yes Hx Substance Use: Yes - Past Surgical History Past Surgical History: Non-Contributing - Surgical History Hx Cholecystectomy: Yes - Anesthesia Hx Anesthesia: Yes Hx Anesthesia Reactions: No Hx Malignant Hyperthermia: No - Suicidal Assessment Feels Threatened In Home Enviroment: No Family/Social History - Physician Review Nursing Documentation Reviewed: Yes Family/Social History: No Known Family HX Smoking Status: Former Smoker Hx Alcohol Use: No Hx Substance Use: Yes Substance used: PAIN MEDICATION Hx Substance Use Treatment: No Allergies/Home Meds Allergies/Adverse Reactions: Allergies benzethonium chloride Allergy (Intermediate, Verified 09/15/17 09:17) URTICARIA benzocaine Allergy (Unknown, Verified 09/15/17 09:17) ITCHING broccoli Allergy (Unknown, Verified 09/15/17 09:17) ITCHING ketorolac tromethamine [From Toradol] Allergy (Unknown, Verified 09/15/17 09:17) ANAPHYLAXIS lidocaine Allergy (Unknown, Verified 09/15/17 09:17) ITCHING nitroglycerin Allergy (Unknown, Verified 09/15/17 09:17) URTICARIA pineapple Allergy (Unknown, Verified 09/15/17 09:17) ITCHING trazodone Allergy (Unknown, Verified 09/15/17 09:17) "heart flutters", swelling haloperidol [From Haldol] Allergy (Verified 09/15/17 09:17) VOMITING haloperidol lactate [From Haldol] Allergy (Verified 09/15/17 09:17) VOMITING oxycodone Allergy (Verified 09/15/17 09:17) SHORTNESS OF BREATH Unknown reaction, patient refused to answer. ziprasidone HCl [From Geodon] Allergy (Verified 09/15/17 09:17) SHORTNESS OF BREATH palpitations ziprasidone mesylate [From Geodon] Allergy (Verified 09/15/17 09:17) SHORTNESS OF BREATH aspirin Adverse Reaction (Unknown, Verified 09/15/17 09:17) "heart flutters", swelling Lanacane Allergy (Uncoded 09/15/17 09:17) SHORTNESS OF BREATH Unknown reaction, patient refused to answer. Steroids Allergy (Uncoded 09/15/17 09:17) SHORTNESS OF BREATH Unknown reaction, patient refused to answer. steroids Allergy (Uncoded 09/15/17 09:17) "heart flutters", swelling Home Medications: Home Meds Medication Instructions Recorded Confirmed Enoxaparin [Lovenox] 80 mg SC BID 12/18/16 09/15/17 LORazepam [Ativan] 2 mg PO TID 12/18/16 09/15/17 Phenytoin [Dilantin] 100 mg PO Q4 07/23/17 09/15/17 Review of Systems - Physician Review All systems were reviewed & negative as marked: Yes - Review of Systems Constitutional: absent: Fevers, Night Sweats Respiratory: absent: SOB, Cough Cardiovascular: Chest Pain, Palpitations. absent: PATTERSON Gastrointestinal: absent: Abdominal Pain, Diarrhea, Nausea, Vomiting Musculoskeletal: absent: Back Pain, Neck Pain Neurological: absent: Headache, Dizziness Physical Exam Vital Signs Reviewed: Yes Vital Signs Temp Pulse Resp BP Pulse Ox 09/17/17 13:34 98.0 F 71 18 127/65 100 09/17/17 12:15 98.2 F 78 18 129/67 98 Temperature: Afebrile Blood Pressure: Normal Pulse: Regular Respiratory Rate: Normal Appearance: Positive for: Well-Appearing Mental Status: Positive for: Alert and Oriented X 3 - Systems Exam Head: Present: Atraumatic, Normocephalic Pupils: Present: PERRL Extroacular Muscles: Present: EOMI Conjunctiva: Present: Normal Mouth: Present: Moist Mucous Membranes Neck: Present: Normal Range of Motion Respiratory/Chest: Present: Clear to Auscultation, Good Air Exchange. No: Respiratory Distress, Accessory Muscle Use Cardiovascular: Present: Regular Rate and Rhythm, Normal S1, S2. No: Murmurs Abdomen: No: Tenderness, Distention, Peritoneal Signs Back: Present: Normal Inspection Upper Extremity: Present: Normal Inspection. No: Cyanosis, Edema Lower Extremity: Present: Normal Inspection. No: Edema Neurological: Present: GCS=15, CN II-XII Intact, Speech Normal Skin: Present: Warm, Dry, Normal Color. No: Rashes Psychiatric: Present: Alert, Oriented x 3, Normal Insight, Normal Concentration Medical Decision Making ED Course and Treatment: 09/17/17 13:52 Impression: Patient is a 62 year old female who presents to Emergency department complaining of chest pain, which has been occurring for the past 4 days and is requesting medication. Plan: --Ativan 2mg IM -- Reassess and disposition Prior Visits: Notes and results from previous visits were reviewed. Progress Notes: 09/17/17 12:50 EKG shows NSR at 89 BPM with prolonged QT intervals. Interpreted by me. 09/17/17 13:05 Reevaluation: On reevaluation the patient feels better and is in no acute distress. I have discussed the plan with the patient, who expresses understanding. Patient given the opportunity to ask question, all questions were answered and there is agreement with the plan to discharge the patient home with prescription for Ativan 1mg BID. Patient is stable for discharge. Patient was instructed to follow up with physician/clinic in 1-2 days or return if symptoms persist/ worsen or new concerning symptoms arise. - RAD Interpretation Radiology Orders: 09/17/17 12:49 CXR [CHEST PORTABLE] [RAD] Stat - Medication Orders Current Medication Orders: Discontinued Medications Lorazepam (Ativan) 2 mg IM ONCE ONE PRN Reason: Protocol Stop: 09/17/17 12:50 Last Admin: 09/17/17 12:54 Dose: 2 mg IM Administration Charges Document 09/17/17 12:54 LA (Rec: 09/17/17 12:54 LA [id number]) Injection Site MAR Injection Site Right Arm Charges for Administration # of IM Administrations 1 - Scribe Statement The provider has reviewed the documentation as recorded by the Scribe Tito Ramirez Provider Scribe Attestation: All medical record entries made by the Scribe were at my direction and personally dictated by me. I have reviewed the chart and agree that the record accurately reflects my personal performance of the history, physical exam, medical decision making, and the department course for this patient. I have also personally directed, reviewed, and agree with the discharge instructions and disposition. Disposition/Present on Arrival - Present on Arrival Any Indicators Present on Arrival: No History of DVT/PE: Yes History of Uncontrolled Diabetes: No Urinary Catheter: No History of Decub. Ulcer: No History Surgical Site Infection Following: None - Disposition Have Diagnosis and Disposition been Completed?: Yes Diagnosis: Medication refill, Anxiety Disposition: HOME/ ROUTINE Disposition Time: 13:09 Patient Plan: Discharge Condition: GOOD Discharge Instructions (ExitCare): Anxiety, Adult (DC) Prescriptions: LORazepam [Ativan] 1 mg PO BID #8 tab Forms: [employer] (Armenian)
--- NOTE | 2017-09-17 13:07 | RAD ---
HISTORY: Chest Pain COMPARISON: 09/09/2017 FINDINGS: LUNGS: No active pulmonary disease. PLEURA: No significant pleural effusion identified, no pneumothorax apparent. CARDIOVASCULAR: Normal. OSSEOUS STRUCTURES: No significant abnormalities. VISUALIZED UPPER ABDOMEN: Normal. OTHER FINDINGS: None. IMPRESSION: No active disease.
[2017-09-17 13:35] VITALS: BP 127/65; PULSE 71; TEMP 98; O2SAT 100
--- NOTE | 2017-09-18 16:37 | CARD ---
APPROVED REPORT EKG Measurement Heart [id number] <Conclusion> Normal sinus rhythm PRWP Q in lll STTW changes c/w ischemia
== END 2017-09-17 13:34 | disposition home or self-care (01) ==
LOC: ED 11:53
DX: Z76.0 Encounter for issue of repeat prescription (principal); F41.9 Anxiety disorder, unspecified; I11.0 Hypertensive heart disease with heart failure; I50.9 Heart failure, unspecified; Z87.891 Personal history of nicotine dependence
CPT/HCPCS: 71045; 93005; 96372; 99283; J2060

== ENCOUNTER 2017-10-08 11:53 | Emergency (ER) | payer OTHER ==
[2017-10-08 11:55] VITALS: BMI 40.2
[2017-10-08 12:11] VITALS: BP 153/87; PULSE 91; RESP 18; TEMP 98.2; O2SAT 97
--- NOTE | 2017-10-08 12:15 | ED PDOC ---
Arrival/HPI - General Chief Complaint: Anxiety Time Seen by Provider: 10/08/17 11:58 Historian: Patient - History of Present Illness Narrative History of Present Illness (Text): 62 year old female with past medical history of COPD, asthma, anemia, anxiety and seizures, presents to the emergency department complaining of anxiety that began 45 min ago. Patient states she was sitting down at home when she felt anxious and her heart began to race. Patient states she misplaced her home medication. Patient also complaining of mid sternal reproducible, non radiating chest pain which she describes as tightness. Patient denies any SOB, fever, chills, abdominal pain, nausea, vomiting, diarrhea, urinary symptoms, back pain , neck pain, headache, dizziness, suicidal/homicidal ideation, or any other complaints. 10/08/17 12:13 Time/Duration: 1 hour Symptom Onset: Sudden Symptom Course: Unchanged Quality: Tightness Severity Level: 4 Past Medical History - Provider Review Nursing Documentation Reviewed: Yes - Infectious Disease Hx of Infectious Diseases: None - Tetanus Immunization Tetanus Immunization: Up to Date - Reproductive Menopause: Yes - Past Medical History Past Medical History: Non-Contributing - Cardiac Hx Cardiac Disorders: Yes Hx Congestive Heart Failure: Yes Hx Hypertension: Yes Hx Peripheral Edema: Yes - Pulmonary Hx Respiratory Disorders: Yes Hx Asthma: Yes Hx Bronchitis: Yes Hx Pulmonary Embolism: Yes - Neurological Hx Neurological Disorder: Yes Hx Migraine: Yes Hx Seizures: Yes (epilepsy) - HEENT Hx HEENT Disorder: No - Renal Hx Renal Disorder: No - Endocrine/Metabolic Hx Endocrine Disorders: No - Hematological/Oncological Hx Blood Disorders: Yes Hx Anemia: Yes - Integumentary Hx Dermatological Disorder: No - Musculoskeletal/Rheumatological Hx Musculoskeletal Disorders: Yes Hx Arthritis: Yes - Gastrointestinal Hx Gastrointestinal Disorders: Yes Hx Crohn's Disease: Yes Hx Gall Bladder Disease: Yes Hx Gastritis: Yes Hx Gastrointestinal Ulcer: Yes - Genitourinary/Gynecological Hx Genitourinary Disorders: No Hx Sexually Transmitted Diseases: No - Psychiatric Hx Psychophysiologic Disorder: Yes Hx Anxiety: Yes Hx Depression: Yes Hx Substance Use: Yes - Past Surgical History Past Surgical History: Non-Contributing - Surgical History Hx Cholecystectomy: Yes - Anesthesia Hx Anesthesia: Yes Hx Anesthesia Reactions: No Hx Malignant Hyperthermia: No - Suicidal Assessment Feels Threatened In Home Enviroment: No Family/Social History - Physician Review Nursing Documentation Reviewed: Yes Family/Social History: No Known Family HX Smoking Status: Former Smoker Hx Alcohol Use: No Hx Substance Use: Yes Substance used: PAIN MEDICATION Hx Substance Use Treatment: No Allergies/Home Meds Allergies/Adverse Reactions: Allergies benzethonium chloride Allergy (Intermediate, Verified 09/15/17 09:17) URTICARIA benzocaine Allergy (Unknown, Verified 09/15/17 09:17) ITCHING broccoli Allergy (Unknown, Verified 09/15/17 09:17) ITCHING ketorolac tromethamine [From Toradol] Allergy (Unknown, Verified 09/15/17 09:17) ANAPHYLAXIS lidocaine Allergy (Unknown, Verified 09/15/17 09:17) ITCHING nitroglycerin Allergy (Unknown, Verified 09/15/17 09:17) URTICARIA pineapple Allergy (Unknown, Verified 09/15/17 09:17) ITCHING trazodone Allergy (Unknown, Verified 09/15/17 09:17) "heart flutters", swelling haloperidol [From Haldol] Allergy (Verified 09/15/17 09:17) VOMITING haloperidol lactate [From Haldol] Allergy (Verified 09/15/17 09:17) VOMITING oxycodone Allergy (Verified 09/15/17 09:17) SHORTNESS OF BREATH Unknown reaction, patient refused to answer. ziprasidone HCl [From Geodon] Allergy (Verified 09/15/17 09:17) SHORTNESS OF BREATH palpitations ziprasidone mesylate [From Geodon] Allergy (Verified 09/15/17 09:17) SHORTNESS OF BREATH aspirin Adverse Reaction (Unknown, Verified 09/15/17 09:17) "heart flutters", swelling Lanacane Allergy (Uncoded 09/15/17 09:17) SHORTNESS OF BREATH Unknown reaction, patient refused to answer. Steroids Allergy (Uncoded 09/15/17 09:17) SHORTNESS OF BREATH Unknown reaction, patient refused to answer. steroids Allergy (Uncoded 09/15/17 09:17) "heart flutters", swelling Home Medications: Home Meds Medication Instructions Recorded Confirmed Enoxaparin [Lovenox] 80 mg SC BID 12/18/16 09/15/17 LORazepam [Ativan] 2 mg PO TID 12/18/16 09/15/17 Phenytoin [Dilantin] 100 mg PO Q4 07/23/17 09/15/17 Review of Systems - Review of Systems Constitutional: Normal. absent: Fevers, Night Sweats Eyes: Normal. absent: Vision Changes ENT: Normal Respiratory: Normal. absent: SOB, Cough, Wheezing Cardiovascular: Chest Pain. absent: Palpitations, Calf Pain, Syncope Gastrointestinal: Normal. absent: Abdominal Pain, Diarrhea, Nausea, Vomiting Genitourinary Female: Normal Musculoskeletal: Normal Skin: Normal Neurological: Normal. absent: Headache, Dizziness, Focal Weakness, Disequilibrium Endocrine: Normal. absent: Diaphoresis Hemo/Lymphatic: Normal Psychiatric: Anxiety. absent: Depression, Suicidal Ideation Physical Exam Vital Signs Reviewed: Yes Vital Signs Temp Pulse Resp BP Pulse Ox 10/08/17 11:54 98.2 F 91 H 18 153/87 H 97 Temperature: Afebrile Blood Pressure: Hypertensive Pulse: Tachycardic Respiratory Rate: Normal Appearance: Positive for: Well-Appearing, Non-Toxic, Comfortable Pain Distress: None Mental Status: Positive for: Alert and Oriented X 3 - Systems Exam Head: Present: Atraumatic, Normocephalic Pupils: Present: PERRL Extroacular Muscles: Present: EOMI Conjunctiva: Present: Normal Mouth: Present: Moist Mucous Membranes Pharnyx: Present: Normal Neck: Present: Normal Range of Motion Respiratory/Chest: Present: Clear to Auscultation, Good Air Exchange, Other ( pain on palpation mid sternal ). No: Respiratory Distress, Accessory Muscle Use Cardiovascular: Present: Normal S1, S2, Tachycardic Abdomen: Present: Normal Bowel Sounds. No: Tenderness, Distention, Peritoneal Signs, Rebound, Guarding Upper Extremity: No: Edema Lower Extremity: No: Edema Neurological: Present: GCS=15, CN II-XII Intact Skin: Present: Warm, Normal Color Psychiatric: Present: Alert, Oriented x 3, Normal Insight, Normal Concentration , Anxious. No: Suicidal Ideation, Homicidal Ideation Medical Decision Making ED Course and Treatment: Plan -EKG, CBC, CMP, Chest xray, cardiac iso, -Ativan PO -reasses 10/08/17 12:26 Notes and results from previous visits were reviewed. Patient has presented with similar complaints and "misplacement" of medication in past. 10/08/17 12:28 Patient has eloped and left the emergency department 10/08/17 14:39 - RAD Interpretation Radiology Orders: 10/08/17 12:21 CHEST PORTABLE [RAD] Stat - Medication Orders Current Medication Orders: Discontinued Medications Lorazepam (Ativan) 2 mg PO ONCE ONE PRN Reason: Protocol Stop: 10/08/17 12:22 Last Admin: 10/08/17 12:45 Dose: 2 mg Disposition/Present on Arrival - Present on Arrival Any Indicators Present on Arrival: No History of DVT/PE: Yes History of Uncontrolled Diabetes: No Urinary Catheter: No History of Decub. Ulcer: No History Surgical Site Infection Following: None - Disposition Have Diagnosis and Disposition been Completed?: Yes Diagnosis: Anxiety, Chest pain Disposition: ELOPEMENT - ER ONLY Disposition Time: 02:30 Condition: UNKNOWN Discharge Instructions (ExitCare): Chest Pain (ED) Referrals: Jony Sy MD [Primary Care Provider] - Follow up with primary Forms: [employer] (Spanish)
--- NOTE | 2017-10-08 18:00 | RAD ---
HISTORY: Chest pain COMPARISON: 09/17/2017. FINDINGS: LUNGS: The lungs are well inflated. There is mild pulmonary venous congestion. PLEURA: No significant pleural effusion identified, no pneumothorax apparent. CARDIOVASCULAR: There is moderate cardiomegaly. OSSEOUS STRUCTURES: No significant abnormalities. VISUALIZED UPPER ABDOMEN: Normal. OTHER FINDINGS: None. IMPRESSION: No active pulmonary disease. Moderate cardiomegaly and mild pulmonary venous congestion.
--- NOTE | 2017-10-08 18:21 | CARD ---
APPROVED REPORT EKG Measurement Heart [id number] <Conclusion> Normal sinus rhythm T wave abnormality, consider inferior ischemia Abnormal ECG
== END 2017-10-08 13:47 | disposition left against medical advice (07) ==
LOC: ED 11:53
DX: R07.9 Chest pain, unspecified (principal); I50.9 Heart failure, unspecified; I10 Essential (primary) hypertension; Z87.891 Personal history of nicotine dependence

== ENCOUNTER 2017-10-14 17:09 | Emergency (ER) | payer OTHER ==
[2017-10-14 17:09] VITALS: BMI 40.2
[2017-10-14 17:46] VITALS: BP 132/86; PULSE 84; RESP 18; TEMP 98.7; O2SAT 99
--- NOTE | 2017-10-14 18:03 | ED PDOC ---
Arrival/HPI - General Chief Complaint: Shortness Of Breath Time Seen by Provider: 10/14/17 17:31 Historian: Patient - History of Present Illness Narrative History of Present Illness (Text): 10/14/17 17:54 A 62 year old female, whose past medical history includes COPD, asthma, anemia, anxiety and seizures, presents to the emergency department complaining of shortness of breath. Patient is well-known in the ER and normally visits for anxiety. Patient reports she was discharge from [facility] 1 week ago and has been injecting Lovenox twice daily. States she was admitted after diagnosed with 3 blood clots to leg. Approximately 1 hour ago, patient woke up with shortness of breath and is concerned she may have pulmonary embolism. Patient denies any chest pain or any other complaints at this time. Time/Duration: 1 hour Past Medical History - Provider Review Nursing Documentation Reviewed: Yes - Infectious Disease Hx of Infectious Diseases: None - Tetanus Immunization Tetanus Immunization: Up to Date - Reproductive Menopause: Yes - Past Medical History Past Medical History: Non-Contributing - Cardiac Hx Cardiac Disorders: Yes Hx Congestive Heart Failure: Yes Hx Hypertension: Yes Hx Peripheral Edema: Yes - Pulmonary Hx Respiratory Disorders: Yes Hx Asthma: Yes Hx Bronchitis: Yes Hx Pulmonary Embolism: Yes - Neurological Hx Neurological Disorder: Yes Hx Migraine: Yes Hx Seizures: Yes (epilepsy) - HEENT Hx HEENT Disorder: No - Renal Hx Renal Disorder: No - Endocrine/Metabolic Hx Endocrine Disorders: No - Hematological/Oncological Hx Blood Disorders: Yes Hx Anemia: Yes - Integumentary Hx Dermatological Disorder: No - Musculoskeletal/Rheumatological Hx Musculoskeletal Disorders: Yes Hx Arthritis: Yes - Gastrointestinal Hx Gastrointestinal Disorders: Yes Hx Crohn's Disease: Yes Hx Gall Bladder Disease: Yes Hx Gastritis: Yes Hx Gastrointestinal Ulcer: Yes - Genitourinary/Gynecological Hx Genitourinary Disorders: No Hx Sexually Transmitted Diseases: No - Psychiatric Hx Psychophysiologic Disorder: Yes Hx Anxiety: Yes Hx Depression: Yes Hx Substance Use: Yes - Past Surgical History Past Surgical History: Non-Contributing - Surgical History Hx Cholecystectomy: Yes - Anesthesia Hx Anesthesia: Yes Hx Anesthesia Reactions: No Hx Malignant Hyperthermia: No - Suicidal Assessment Feels Threatened In Home Enviroment: No Family/Social History - Physician Review Nursing Documentation Reviewed: Yes Family/Social History: No Known Family HX Smoking Status: Former Smoker Hx Alcohol Use: No Hx Substance Use: Yes Substance used: PAIN MEDICATION Hx Substance Use Treatment: No Allergies/Home Meds Allergies/Adverse Reactions: Allergies benzethonium chloride Allergy (Intermediate, Verified 09/15/17 09:17) URTICARIA benzocaine Allergy (Unknown, Verified 09/15/17 09:17) ITCHING broccoli Allergy (Unknown, Verified 09/15/17 09:17) ITCHING ketorolac tromethamine [From Toradol] Allergy (Unknown, Verified 09/15/17 09:17) ANAPHYLAXIS lidocaine Allergy (Unknown, Verified 09/15/17 09:17) ITCHING nitroglycerin Allergy (Unknown, Verified 09/15/17 09:17) URTICARIA pineapple Allergy (Unknown, Verified 09/15/17 09:17) ITCHING trazodone Allergy (Unknown, Verified 09/15/17 09:17) "heart flutters", swelling haloperidol [From Haldol] Allergy (Verified 09/15/17 09:17) VOMITING haloperidol lactate [From Haldol] Allergy (Verified 09/15/17 09:17) VOMITING oxycodone Allergy (Verified 09/15/17 09:17) SHORTNESS OF BREATH Unknown reaction, patient refused to answer. ziprasidone HCl [From Geodon] Allergy (Verified 09/15/17 09:17) SHORTNESS OF BREATH palpitations ziprasidone mesylate [From Geodon] Allergy (Verified 09/15/17 09:17) SHORTNESS OF BREATH aspirin Adverse Reaction (Unknown, Verified 09/15/17 09:17) "heart flutters", swelling Lanacane Allergy (Uncoded 09/15/17 09:17) SHORTNESS OF BREATH Unknown reaction, patient refused to answer. Steroids Allergy (Uncoded 09/15/17 09:17) SHORTNESS OF BREATH Unknown reaction, patient refused to answer. steroids Allergy (Uncoded 09/15/17 09:17) "heart flutters", swelling Home Medications: Home Meds Medication Instructions Recorded Confirmed Enoxaparin [Lovenox] 80 mg SC BID 12/18/16 09/15/17 LORazepam [Ativan] 2 mg PO TID 12/18/16 09/15/17 Phenytoin [Dilantin] 100 mg PO Q4 07/23/17 09/15/17 Review of Systems - Physician Review All systems were reviewed & negative as marked: Yes - Review of Systems Respiratory: SOB Cardiovascular: absent: Chest Pain Physical Exam - Physical Exam Narrative Physical Exam (Text): Constitutional: No acute distress. Head: Normocephalic. Atraumatic. Eyes: PERRL. ENT: Moist mucous membranes. Neck: Supple. Cardiovascular: Regular rate. Chest: No tenderness. Respiratory: Clear to auscultation bilaterally. GI: Soft. Nontender. Nondistended. Back: No CVA tenderness. Musculoskeletal: No tenderness or swelling of extremities. Skin: No rash. Neurologic: Alert, no focal deficit. Vital Signs Reviewed: Yes Vital Signs Temp Pulse Resp BP Pulse Ox 10/14/17 17:41 98.7 F 84 18 132/86 99 Temperature: Afebrile Blood Pressure: Normal Pulse: Regular Respiratory Rate: Normal Appearance: Positive for: Well-Appearing, Non-Toxic, Comfortable Pain Distress: None Mental Status: Positive for: Alert and Oriented X 3 Medical Decision Making ED Course and Treatment: 10/14/17 17:57 Impression: 62 year old female with shortness of breath. No acute findings on physical examination. Plan: -- Angio Chest CT -- Labs -- Reassess and disposition Prior Visits: Notes and results from previous visits were reviewed. Patient was last seen in the emergency department on 10/08/2017 for anxiety. Patient eloped in the ER. Progress Notes: Patient eloped from the Emergency department. - RAD Interpretation Radiology Orders: 10/14/17 17:57 ANGIO CHEST PE PROTOCOL [CT] Stat - Scribe Statement The provider has reviewed the documentation as recorded by the Barber Diaz Provider Scribe Attestation: All medical record entries made by the Barber were at my direction and personally dictated by me. I have reviewed the chart and agree that the record accurately reflects my personal performance of the history, physical exam, medical decision making, and the department course for this patient. I have also personally directed, reviewed, and agree with the discharge instructions and disposition. Disposition/Present on Arrival - Present on Arrival Any Indicators Present on Arrival: Yes History of DVT/PE: Yes History of Uncontrolled Diabetes: No Urinary Catheter: No History of Decub. Ulcer: No History Surgical Site Infection Following: None - Disposition Have Diagnosis and Disposition been Completed?: No Diagnosis: Shortness of breath Disposition: ELOPEMENT - ER ONLY Disposition Time: 18:56 Condition: UNKNOWN Forms: [employer] (Estonian)
== END 2017-10-14 18:45 | disposition left against medical advice (07) ==
LOC: ED 17:09
DX: R06.02 Shortness of breath (principal); I11.0 Hypertensive heart disease with heart failure; I50.9 Heart failure, unspecified; Z87.891 Personal history of nicotine dependence

== ENCOUNTER 2017-10-19 00:39 | Emergency (ER) | payer OTHER ==
[2017-10-19 00:43] VITALS: BMI 56.7
[2017-10-19 00:51] VITALS: RESP 18; TEMP 97.6
[2017-10-19 01:32] LABS: BASO # 0.01 K/mm3 (0.0-2.0); BASO % 0.2 % (0.0-3.0); EOS # 0.1 (0.0-0.7); GRAN # 3.3 (1.4-6.5); GRAN % 54.2 % (50.0-68.0); HEMOGLOBIN 13.4 g/dL (12.0-16.0); LYMPH # 2.2 (1.2-3.4); LYMPH % 35.7 % (22.0-35.0); MEAN CELL VOLUME 95.9 fl (80.0-105.0); MEAN CORPUSCULAR HEMOGLOBIN 32.2 pg (25.0-35.0); MEAN CORPUSCULAR HGB CONC 33.6 g/dl (31.0-37.0); MEAN PLATELET VOLUME 10.8 fl (7.0-11.0); MONO # 0.5 (0.1-0.6); MONO % 7.9 % (1.0-6.0); RBC 4.16 10^6/uL (3.5-6.1); RED CELL DISTRIBUTION WIDTH 14.2 % (11.5-14.5); WHITE BLOOD COUNT 6.1 10^3/ul (4.5-11.0)
--- NOTE | 2017-10-19 01:34 | ED PDOC ---
Arrival/HPI - General Historian: Patient - History of Present Illness Time/Duration: 4-6 hours Symptom Onset: Sudden Activities at Onset: Rest Context: Home - General Chief Complaint: Seizure Time Seen by Provider: 10/19/17 00:44 - History of Present Illness Narrative History of Present Illness (Text): 10/19/17 01:28 This is a 62 year old female with PMH of COPD, asthma, anemia, anxiety, and seizures presenting to ED for a seizure episode that began 4 hours. Patient was sitting when seizure began, and began shaking and fell onto floor. Denies head trauma. Patient states she lost continence. She also admits to chest pain. She states she has history of seizures, last episode occurring one month ago. She is currently taking lovenox, ativan and phenytoin. Patient denies SOB, headaches , abdominal pain, dizziness, loss of sensation, fevers, nausea, and vomiting. (Jay Jay Angela) Past Medical History - Provider Review Nursing Documentation Reviewed: Yes - Infectious Disease Hx of Infectious Diseases: None - Tetanus Immunization Tetanus Immunization: Up to Date - Past Medical History Past Medical History: Non-Contributing - Cardiac Hx Cardiac Disorders: Yes Hx Congestive Heart Failure: Yes Hx Hypertension: Yes Hx Peripheral Edema: Yes - Pulmonary Hx Respiratory Disorders: Yes Hx Asthma: Yes Hx Bronchitis: Yes Hx Pulmonary Embolism: Yes - Neurological Hx Neurological Disorder: Yes Hx Migraine: Yes Hx Seizures: Yes (epilepsy) - HEENT Hx HEENT Disorder: No - Renal Hx Renal Disorder: No - Endocrine/Metabolic Hx Endocrine Disorders: No - Hematological/Oncological Hx Blood Disorders: Yes Hx Anemia: Yes - Integumentary Hx Dermatological Disorder: No - Musculoskeletal/Rheumatological Hx Musculoskeletal Disorders: Yes Hx Arthritis: Yes - Gastrointestinal Hx Gastrointestinal Disorders: Yes Hx Crohn's Disease: Yes Hx Gall Bladder Disease: Yes Hx Gastritis: Yes Hx Gastrointestinal Ulcer: Yes - Genitourinary/Gynecological Hx Genitourinary Disorders: No Hx Sexually Transmitted Diseases: No - Psychiatric Hx Psychophysiologic Disorder: Yes Hx Anxiety: Yes Hx Depression: Yes Hx Substance Use: Yes - Past Surgical History Past Surgical History: Non-Contributing - Surgical History Hx Cholecystectomy: Yes - Anesthesia Hx Anesthesia: Yes Hx Anesthesia Reactions: No Hx Malignant Hyperthermia: No - Suicidal Assessment Feels Threatened In Home Enviroment: No Family/Social History - Physician Review Nursing Documentation Reviewed: Yes Family/Social History: Unknown Family HX Smoking Status: Former Smoker Hx Alcohol Use: No Hx Substance Use: Yes Substance used: PAIN MEDICATION Hx Substance Use Treatment: No Allergies/Home Meds Allergies/Adverse Reactions: Allergies aspirin Allergy (Verified 10/19/17 00:56) SHORTNESS OF BREATH benzethonium chloride Allergy (Verified 10/19/17 00:56) URTICARIA benzocaine Allergy (Verified 10/19/17 00:56) ITCHING broccoli Allergy (Verified 10/19/17 00:56) ITCHING haloperidol Allergy (Verified 10/19/17 00:56) VOMITING ketorolac Allergy (Verified 10/19/17 00:56) ANAPHYLAXIS lidocaine Allergy (Verified 10/19/17 00:56) ITCHING nitroglycerin Allergy (Verified 10/19/17 00:56) URTICARIA oxycodone Allergy (Verified 10/19/17 00:56) SHORTNESS OF BREATH pineapple Allergy (Verified 10/19/17 00:56) ITCHING trazodone Allergy (Verified 10/19/17 00:56) SWELLING ziprasidone [From Geodon] Allergy (Verified 10/19/17 00:56) SHORTNESS OF BREATH steroids Allergy (Uncoded 09/15/17 09:17) "heart flutters", swelling Home Medications: Home Meds Medication Instructions Recorded Confirmed Enoxaparin [Lovenox] 80 mg SC BID 12/18/16 10/19/17 LORazepam [Ativan] 2 mg PO TID 12/18/16 10/19/17 Phenytoin [Dilantin] 100 mg PO Q4 07/23/17 10/19/17 Review of Systems - Physician Review All systems were reviewed & negative as marked: Yes - Review of Systems Constitutional: Normal Eyes: Normal ENT: Normal Respiratory: Normal. absent: Cough Cardiovascular: Normal, Other (chest wall tenderness). absent: Chest Pain, Palpitations Gastrointestinal: Normal. absent: Abdominal Pain, Vomiting Genitourinary Female: Normal Musculoskeletal: Normal Skin: Normal Neurological: Normal. absent: Headache, Dizziness, Focal Weakness Endocrine: Normal Physical Exam Vital Signs Reviewed: Yes Temperature: Afebrile Blood Pressure: Hypertensive Pulse: Regular Respiratory Rate: Normal Appearance: Positive for: Well-Appearing, Non-Toxic, Comfortable Pain Distress: None Mental Status: Positive for: Alert and Oriented X 3 - Systems Exam Head: Present: Atraumatic, Normocephalic Pupils: Present: PERRL Extroacular Muscles: Present: EOMI Conjunctiva: Present: Normal Mouth: Present: Moist Mucous Membranes Neck: Present: Normal Range of Motion Respiratory/Chest: Present: Clear to Auscultation, Good Air Exchange. No: Respiratory Distress, Accessory Muscle Use Cardiovascular: Present: Regular Rate and Rhythm, Normal S1, S2. No: Murmurs Abdomen: No: Tenderness, Distention, Peritoneal Signs Back: Present: Normal Inspection Upper Extremity: Present: Normal Inspection. No: Cyanosis, Edema Lower Extremity: Present: Normal Inspection. No: Edema Neurological: Present: Speech Normal, Motor Func Grossly Intact, Normal Sensory Function Skin: Present: Warm, Dry, Normal Color. No: Rashes Psychiatric: Present: Alert, Normal Insight, Normal Concentration Vital Signs Temp Pulse Resp BP Pulse Ox 10/19/17 00:50 97.6 F 81 18 162/96 H 98 Medical Decision Making ED Course and Treatment: Impression: Pt seen and evaluated with dental assistant medical assistant. Aware and agree with HPI, clinical findings, plan, and management. Pt, whose past medical history includes COPD, DVT, asthma, anemia, anxiety, and seizure disorder, presented s/p seizure tonight. Pt also with chest pain. Plan: -- EKG -- CXR -- Labs, troponin -- Ativan -- Reassess and disposition (Hung Gao) 10/19/17 01:36 This is a 62 a year old female with PMH significant for seizures presenting to the ER today for a seizure episode that occurred today. Plan: -Phenytoin level -CBC, CMP -Troponin -CXray Progress: Patient's vitals are stable and is resting comfortably. 10/19/17 02:15 Phenytoin level is currently therapeutic. EKG shows rate of 83bmp, PA interval of 152ms, and QRs of 92 ms. Normal sinus rhythm. (Jay Jay Angela) - Lab Interpretations Lab Results: 10/19/17 01:22 10/19/17 01:22 Lab Results 10/19/17 01:22: Phenytoin 19 10/19/17 01:22: Sodium 144, Potassium 3.8, Chloride 107, Carbon Dioxide 28, Anion Gap 13, BUN 15, Creatinine 0.9, Est GFR ( Amer) > 60, Est GFR (Non- Af Amer) > 60, Random Glucose 100, Calcium 8.2 L, Total Bilirubin 0.3, AST 32, ALT 44, Alkaline Phosphatase 158 H, Troponin I < 0.01, Total Protein 7.8, Albumin 4.1, Globulin 3.7, Albumin/Globulin Ratio 1.1 10/19/17 01:22: WBC 6.1, RBC 4.16, Hgb 13.4, Hct 39.9, MCV 95.9, MCH 32.2, MCHC 33.6, RDW 14.2, Plt Count 133, MPV 10.8, Gran % 54.2, Lymph % (Auto) 35.7 H, [place] % (Auto) 7.9 H, Eos % (Auto) 2.0, Baso % (Auto) 0.2, Gran # 3.30, Lymph # ( Auto) 2.2, [place] # (Auto) 0.5, Eos # (Auto) 0.1, Baso # (Auto) 0.01 - RAD Interpretation Radiology Orders: 10/19/17 00:56 CHEST PORTABLE [RAD] Stat - Medication Orders Current Medication Orders: Lorazepam (Ativan) 1 mg PO ONCE ONE PRN Reason: Protocol Stop: 10/19/17 02:15 Discontinued Medications Lorazepam (Ativan) 1 mg PO ONCE ONE PRN Reason: Protocol Stop: 10/19/17 01:25 Last Admin: 10/19/17 01:38 Dose: Not Given - PA / ASSISTANT PRODUCE MANAGER / Resident Statement /DO has reviewed & agrees with the documentation as recorded. /DO has examined the patient and agrees with the treatment plan. Disposition/Present on Arrival - Present on Arrival Any Indicators Present on Arrival: Yes History of DVT/PE: Yes History of Uncontrolled Diabetes: No Urinary Catheter: No History of Decub. Ulcer: No History Surgical Site Infection Following: None - Disposition Have Diagnosis and Disposition been Completed?: Yes Disposition Time: 02:15 - Disposition Diagnosis: Seizure Disposition: HOME/ ROUTINE Patient Problems: Current Active Problems Problem Status Onset Seizure Acute Condition: GOOD Discharge Instructions (ExitCare): Seizures, Adult (DC) Additional Instructions: Follow up with primary care doctor. Referrals: Jony Sy MD [Primary Care Provider] - Follow up with primary Forms: [employer] (Urdu)
[2017-10-19 01:43] LABS: ALB/GLOB RATIO 1.1 (1.1-1.8); ALBUMIN 4.1 g/dL (3.0-4.8); ALT/SGPT 44 U/L (7-56); AST/SGOT 32 U/L (14-36); BLOOD UREA NITROGEN 15 mg/dL (7-21); CALCIUM 8.2 mg/dL (8.4-10.5); GFR AFRICAN-AMERICAN > 60; GFR NON-AFRICAN AMERICAN > 60
[2017-10-19 01:54] LABS: TROPONIN I < 0.01 ng/mL
[2017-10-19 02:25] VITALS: BP 156/87; PULSE 85; O2SAT 100
--- NOTE | 2017-10-19 09:10 | CARD ---
APPROVED REPORT EKG Measurement Heart [id number] <Conclusion> Normal sinus rhythm PRWP Possible Inferior infarct, age undetermined
--- NOTE | 2017-10-19 09:15 | RAD ---
HISTORY: Seizure. COMPARISON: 10/08/2017 FINDINGS: LUNGS: No active pulmonary disease. PLEURA: No significant pleural effusion identified, no pneumothorax apparent. CARDIOVASCULAR: No radiographic findings to suggest acute or significant cardiovascular disease. OSSEOUS STRUCTURES: No significant abnormalities. VISUALIZED UPPER ABDOMEN: Normal. OTHER FINDINGS: None. IMPRESSION: No active disease. No significant interval change compared to the prior examination(s).
== END 2017-10-19 02:23 | disposition home or self-care (01) ==
LOC: ED 00:39
DX: G40.909 Epilepsy, unspecified, not intractable, without status epilepticus (principal); I50.9 Heart failure, unspecified; I10 Essential (primary) hypertension; J44.9 Chronic obstructive pulmonary disease, unspecified; Z87.891 Personal history of nicotine dependence

== ENCOUNTER 2017-11-09 05:57 | Emergency (ER) | payer OTHER ==
--- NOTE | 2017-11-09 06:02 | ED PDOC ---
Arrival/HPI - General Time Seen by Provider: 11/09/17 05:59 Historian: Patient - History of Present Illness Narrative History of Present Illness (Text): 11/09/17 06:00 Justina Abreu is a 61 year old female whose past medical history includes COPD , asthma, anemia, anxiety and seizures, who presents to the emergency department brought in by EMS complaining of left knee pain status post fall at home this morning. Patient also states she feels anxious and is requesting Ativan. Patient denies any fevers, chills, chest pain, shortness of breath, abdominal pain, nausea, vomiting, diarrhea, back pain, neck pain, urinary symptoms, headache, dizziness, or any other complaint. Time/Duration: Other (today) Symptom Onset: Gradual Symptom Course: Unchanged Context: Home Past Medical History - Provider Review Nursing Documentation Reviewed: Yes - Infectious Disease Hx of Infectious Diseases: None - Tetanus Immunization Tetanus Immunization: Up to Date - Past Medical History Past Medical History: Non-Contributing - Cardiac Hx Cardiac Disorders: Yes Hx Congestive Heart Failure: Yes Hx Hypertension: Yes Hx Peripheral Edema: Yes - Pulmonary Hx Respiratory Disorders: Yes Hx Asthma: Yes Hx Bronchitis: Yes Hx Pulmonary Embolism: Yes - Neurological Hx Neurological Disorder: Yes Hx Migraine: Yes Hx Seizures: Yes (epilepsy) - HEENT Hx HEENT Disorder: No - Renal Hx Renal Disorder: No - Endocrine/Metabolic Hx Endocrine Disorders: No - Hematological/Oncological Hx Blood Disorders: Yes Hx Anemia: Yes - Integumentary Hx Dermatological Disorder: No - Musculoskeletal/Rheumatological Hx Musculoskeletal Disorders: Yes Hx Arthritis: Yes - Gastrointestinal Hx Gastrointestinal Disorders: Yes Hx Crohn's Disease: Yes Hx Gall Bladder Disease: Yes Hx Gastritis: Yes Hx Gastrointestinal Ulcer: Yes - Genitourinary/Gynecological Hx Genitourinary Disorders: No Hx Sexually Transmitted Diseases: No - Psychiatric Hx Psychophysiologic Disorder: Yes Hx Anxiety: Yes Hx Depression: Yes Hx Substance Use: Yes - Past Surgical History Past Surgical History: Non-Contributing - Surgical History Hx Cholecystectomy: Yes - Anesthesia Hx Anesthesia: Yes Hx Anesthesia Reactions: No Hx Malignant Hyperthermia: No - Suicidal Assessment Feels Threatened In Home Enviroment: No Family/Social History - Physician Review Nursing Documentation Reviewed: Yes Family/Social History: Unknown Family HX Smoking Status: Former Smoker Hx Alcohol Use: No Hx Substance Use: Yes Substance used: PAIN MEDICATION Hx Substance Use Treatment: No Allergies/Home Meds Allergies/Adverse Reactions: Allergies aspirin Allergy (Verified 10/19/17 00:56) SHORTNESS OF BREATH benzethonium chloride Allergy (Verified 10/19/17 00:56) URTICARIA benzocaine Allergy (Verified 10/19/17 00:56) ITCHING broccoli Allergy (Verified 10/19/17 00:56) ITCHING haloperidol Allergy (Verified 10/19/17 00:56) VOMITING ketorolac Allergy (Verified 10/19/17 00:56) ANAPHYLAXIS lidocaine Allergy (Verified 10/19/17 00:56) ITCHING nitroglycerin Allergy (Verified 10/19/17 00:56) URTICARIA oxycodone Allergy (Verified 10/19/17 00:56) SHORTNESS OF BREATH pineapple Allergy (Verified 10/19/17 00:56) ITCHING trazodone Allergy (Verified 10/19/17 00:56) SWELLING ziprasidone [From Geodon] Allergy (Verified 10/19/17 00:56) SHORTNESS OF BREATH steroids Allergy (Uncoded 09/15/17 09:17) "heart flutters", swelling Home Medications: Home Meds Medication Instructions Recorded Confirmed Enoxaparin [Lovenox] 80 mg SC BID 12/18/16 10/19/17 LORazepam [Ativan] 2 mg PO TID 12/18/16 10/19/17 Phenytoin [Dilantin] 100 mg PO Q4 07/23/17 10/19/17 Review of Systems - Physician Review All systems were reviewed & negative as marked: Yes - Review of Systems Constitutional: Normal. absent: Fevers Eyes: Normal ENT: Normal Respiratory: Normal. absent: SOB, Cough Cardiovascular: Normal. absent: Chest Pain Gastrointestinal: Normal. absent: Abdominal Pain, Diarrhea, Nausea, Vomiting Genitourinary Female: Normal. absent: Dysuria, Frequency, Hematuria, Urine Output Changes Musculoskeletal: Arthralgias (+left knee pain). absent: Back Pain, Neck Pain Skin: Normal. absent: Rash Neurological: Normal. absent: Headache, Dizziness Endocrine: Normal Hemo/Lymphatic: Normal Psychiatric: Anxiety Physical Exam Vital Signs Reviewed: Yes Vital Signs Temp Pulse Resp BP Pulse Ox 11/09/17 06:11 97.3 F L 92 H 20 156/92 H 99 Temperature: Afebrile Blood Pressure: Normal Pulse: Regular Respiratory Rate: Normal Appearance: Positive for: Well-Appearing, Non-Toxic, Comfortable Pain Distress: None Mental Status: Positive for: Alert and Oriented X 3 - Systems Exam Head: Present: Atraumatic, Normocephalic Pupils: Present: PERRL Extroacular Muscles: Present: EOMI Conjunctiva: Present: Normal Mouth: Present: Moist Mucous Membranes Neck: Present: Normal Range of Motion. No: Meningeal Signs, MIDLINE TENDERNESS , Paraspinal Tenderness Respiratory/Chest: Present: Clear to Auscultation, Good Air Exchange. No: Respiratory Distress, Accessory Muscle Use Cardiovascular: Present: Regular Rate and Rhythm, Normal S1, S2. No: Murmurs Abdomen: No: Tenderness, Distention, Peritoneal Signs Back: Present: Normal Inspection Upper Extremity: Present: Normal Inspection. No: Cyanosis, Edema Lower Extremity: Present: Normal Inspection, NORMAL PULSES, Tenderness (left knee/pain with attempt at flexion), Neurovascularly Intact, Capillary Refill < 2 s. No: Edema, Cyanosis, Swelling, Erythema, Temperature Abnormalties Neurological: Present: GCS=15, CN II-XII Intact, Speech Normal, Motor Func Grossly Intact, Normal Sensory Function Skin: Present: Warm, Dry, Normal Color. No: Rashes Psychiatric: Present: Alert, Oriented x 3, Normal Insight, Normal Concentration , Anxious Medical Decision Making ED Course and Treatment: 11/09/17 06:00 Impression: 62 year old female complaining of left knee pain and anxiety. Plan: -- XR Left Knee -- Ativan -- Reassess and disposition Progress Notes: 11/09/17 07:00 Case endorsed to /pending XRay/response to treatment/final disposition - RAD Interpretation Radiology Orders: 11/09/17 06:05 KNEE WITH PATELLA LEFT 3 VIEW [RAD] Stat - EKG Interpretation EKG Interpretation (Text): 11/09/17 06:30 EKG- NSR@ 80,T wave change inferior,no acute changes(unchanged from previous EKG 's) Interpreted by ED Physician: Yes Type: 12 lead EKG - Medication Orders Current Medication Orders: Discontinued Medications Lorazepam (Ativan) 2 mg IM ONCE ONE Stop: 11/09/17 06:06 - Scribe Statement The provider has reviewed the documentation as recorded by the Barber Echeverria Provider Scribe Attestation: All medical record entries made by the Scribe were at my direction and personally dictated by me. I have reviewed the chart and agree that the record accurately reflects my personal performance of the history, physical exam, medical decision making, and the department course for this patient. I have also personally directed, reviewed, and agree with the discharge instructions and disposition. Disposition/Present on Arrival - Present on Arrival Any Indicators Present on Arrival: No History of DVT/PE: Yes History of Uncontrolled Diabetes: No Urinary Catheter: No History Surgical Site Infection Following: None - Disposition Have Diagnosis and Disposition been Completed?: No Diagnosis: Anxiety, Knee injury Disposition Time: 07:00 Condition: STABLE Referrals: Jony Sy MD [Primary Care Provider] - Follow up with primary
[2017-11-09 06:11] VITALS: BMI 43.8
--- NOTE | 2017-11-09 07:17 | ED PDOC ---
Physical Exam Vital Signs Temp Pulse Resp BP Pulse Ox 11/09/17 07:36 98 F 82 17 125/85 98 11/09/17 06:11 97.3 F L 92 H 20 156/92 H 99 Medical Decision Making ED Course and Treatment: 11/09/17 07:00 Case endorsed to me by Dr. Wilkins. Patient is a 61 year old female whose past medical history includes COPD, asthma, anemia, anxiety and seizures, brought in by EMS complaining of left knee pain status post fall at home this morning. Currently pending left knee x-ray. Sleeping comfortably in Emergency department stretcher. XR shows no acute fracture. - RAD Interpretation Radiology Orders: 11/09/17 06:05 KNEE WITH PATELLA LEFT 3 VIEW [RAD] Stat - Medication Orders Current Medication Orders: Discontinued Medications Lorazepam (Ativan) 2 mg IM ONCE ONE Stop: 11/09/17 06:06 Last Admin: 11/09/17 06:53 Dose: 2 mg IM Administration Charges Document 11/09/17 06:53 OCS (Rec: 11/09/17 06:53 OCS [id number]) Injection Site MAR Injection Site Left Deltoid Charges for Administration # of IM Administrations 1 - Scribe Statement The provider has reviewed the documentation as recorded by the Scribe Annabel [place] Provider Scribe Attestation: All medical record entries made by the Scribe were at my direction and personally dictated by me. I have reviewed the chart and agree that the record accurately reflects my personal performance of the history, physical exam, medical decision making, and the department course for this patient. I have also personally directed, reviewed, and agree with the discharge instructions and disposition. Disposition/Present on Arrival - Present on Arrival Any Indicators Present on Arrival: No History of DVT/PE: Yes History of Uncontrolled Diabetes: No Urinary Catheter: No History of Decub. Ulcer: No History Surgical Site Infection Following: None - Disposition Have Diagnosis and Disposition been Completed?: Yes Diagnosis: Anxiety, Knee injury Disposition: HOME/ ROUTINE Disposition Time: 08:51 Patient Plan: Discharge Condition: STABLE Discharge Instructions (ExitCare): Knee Pain Referrals: Jony Sy MD [Primary Care Provider] - Follow up with primary Forms: [employer] (Yoruba)
[2017-11-09 07:41] VITALS: O2SAT 98
[2017-11-09 09:12] VITALS: BP 129/51; PULSE 76; RESP 19; TEMP 97
--- NOTE | 2017-11-09 10:54 | RAD ---
Date of service: 11/09/2017 PROCEDURE: Left Knee Radiographs. HISTORY: Unspecified injury. COMPARISON: None. FINDINGS: BONES: No acute fracture. Proliferative hypertrophic changes emanating from the femoral condyle and tibial plateau regions. JOINTS: Tricompartmental degenerative change. JOINT EFFUSION: None. OTHER FINDINGS: None. IMPRESSION: No acute findings related to/accounting for the clinical presentation.
--- NOTE | 2017-11-09 12:51 | CARD ---
APPROVED REPORT Date of service: 11/09/2017 EKG Measurement Heart [id number] <Conclusion> Normal sinus rhythm T wave abnormality, consider inferior ischemia Abnormal ECG
== END 2017-11-09 09:13 | disposition home or self-care (01) ==
LOC: ED 05:57
DX: S89.92XA Unspecified injury of left lower leg, initial encounter (principal); W19.XXXA Unspecified fall, initial encounter; Y92.009 Unspecified place in unspecified non-institutional (private) residence as the place of occurrence of the external cause; F41.9 Anxiety disorder, unspecified; I10 Essential (primary) hypertension; Z87.891 Personal history of nicotine dependence
CPT/HCPCS: 73562; 93005; 96372; 99283; J2060

== ENCOUNTER 2017-11-14 10:16 | Emergency (ER) | payer OTHER ==
[2017-11-14 10:22] VITALS: BMI 38.4
[2017-11-14 10:24] VITALS: RESP 18
--- NOTE | 2017-11-14 10:49 | ED PDOC ---
Arrival/HPI - General Chief Complaint: Anxiety Time Seen by Provider: 11/14/17 10:20 Historian: Patient - History of Present Illness Narrative History of Present Illness (Text): 11/14/17 10:25 Justina Abreu is a 62 year old female, whose past medical history includes COPD, asthma, anemia, anxiety and seizures, who presents to the emergency department complaining of anxiety and aching chest discomfort since 11/12/17. Patient is tearful and states she is so anxious that she cannot think. Patient requests a refill for all of her medication. Patient notes she was recently evicted from home and does not have access to any of her medication due to padlocking of home. Patient states the hotel she is staying at has been an awful experience and "sparked her anxiety." Patient denies any fever, chills, shortness of breath, nausea, vomiting, diarrhea, urinary symptoms, back pain, neck pain, headache, dizziness, or any other complaints. Time/Duration: > week (hasn't taken medication since 11/12/17) Symptom Onset: Sudden Symptom Course: Unchanged Quality: Aching Activities at Onset: Light Past Medical History - Provider Review Nursing Documentation Reviewed: Yes - Infectious Disease Hx of Infectious Diseases: None - Tetanus Immunization Tetanus Immunization: Up to Date - Reproductive Menopause: Yes - Past Medical History Past Medical History: Non-Contributing - Cardiac Hx Cardiac Disorders: Yes Hx Congestive Heart Failure: Yes Hx Hypertension: Yes Hx Peripheral Edema: Yes - Pulmonary Hx Respiratory Disorders: Yes Hx Asthma: Yes Hx Bronchitis: Yes Hx Pulmonary Embolism: Yes - Neurological Hx Neurological Disorder: Yes Hx Migraine: Yes Hx Seizures: Yes (epilepsy) - HEENT Hx HEENT Disorder: No - Renal Hx Renal Disorder: No - Endocrine/Metabolic Hx Endocrine Disorders: No - Hematological/Oncological Hx Blood Disorders: Yes Hx Anemia: Yes - Integumentary Hx Dermatological Disorder: No - Musculoskeletal/Rheumatological Hx Musculoskeletal Disorders: Yes Hx Arthritis: Yes - Gastrointestinal Hx Gastrointestinal Disorders: Yes Hx Crohn's Disease: Yes Hx Gall Bladder Disease: Yes Hx Gastritis: Yes Hx Gastrointestinal Ulcer: Yes - Genitourinary/Gynecological Hx Genitourinary Disorders: No Hx Sexually Transmitted Diseases: No - Psychiatric Hx Psychophysiologic Disorder: Yes Hx Anxiety: Yes Hx Depression: Yes Hx Substance Use: Yes - Past Surgical History Past Surgical History: Non-Contributing - Surgical History Hx Cholecystectomy: Yes - Anesthesia Hx Anesthesia: Yes Hx Anesthesia Reactions: No Hx Malignant Hyperthermia: No - Suicidal Assessment Feels Threatened In Home Enviroment: No Family/Social History - Physician Review Nursing Documentation Reviewed: Yes Family/Social History: Unknown Family HX Smoking Status: Former Smoker Hx Alcohol Use: No Hx Substance Use: Yes Substance used: PAIN MEDICATION Hx Substance Use Treatment: No Allergies/Home Meds Allergies/Adverse Reactions: Allergies aspirin Allergy (Verified 10/19/17 00:56) SHORTNESS OF BREATH benzethonium chloride Allergy (Verified 10/19/17 00:56) URTICARIA benzocaine Allergy (Verified 10/19/17 00:56) ITCHING broccoli Allergy (Verified 10/19/17 00:56) ITCHING haloperidol Allergy (Verified 10/19/17 00:56) VOMITING ketorolac Allergy (Verified 10/19/17 00:56) ANAPHYLAXIS lidocaine Allergy (Verified 10/19/17 00:56) ITCHING nitroglycerin Allergy (Verified 10/19/17 00:56) URTICARIA oxycodone Allergy (Verified 10/19/17 00:56) SHORTNESS OF BREATH pineapple Allergy (Verified 10/19/17 00:56) ITCHING trazodone Allergy (Verified 10/19/17 00:56) SWELLING ziprasidone [From Geodon] Allergy (Verified 10/19/17 00:56) SHORTNESS OF BREATH steroids Allergy (Uncoded 09/15/17 09:17) "heart flutters", swelling Home Medications: Home Meds Medication Instructions Recorded Confirmed Enoxaparin [Lovenox] 80 mg SC BID 12/18/16 10/19/17 Phenytoin [Dilantin] 100 mg PO Q4 07/23/17 10/19/17 Review of Systems - Physician Review All systems were reviewed & negative as marked: Yes - Review of Systems Constitutional: Normal. absent: Fevers Eyes: Normal ENT: Normal. absent: Sore Throat, Rhinorrhea Respiratory: Normal. absent: SOB, Cough Cardiovascular: Other (chest discomfort). absent: Normal Gastrointestinal: Normal. absent: Abdominal Pain, Constipation, Diarrhea, Nausea, Vomiting Genitourinary Female: Normal Musculoskeletal: Normal Skin: Normal Neurological: Normal. absent: Headache, Dizziness Endocrine: Normal. absent: Diaphoresis Hemo/Lymphatic: Normal Psychiatric: Anxiety. absent: Normal (has not taken her medication since ) Physical Exam Vital Signs Reviewed: Yes Vital Signs Temp Pulse Resp BP Pulse Ox 11/14/17 14:23 98.4 F 82 18 139/84 97 11/14/17 14:21 98.4 F 82 18 139/84 97 11/14/17 14:00 98.4 F 82 18 139/84 97 11/14/17 12:00 86 18 148/80 98 11/14/17 10:23 98.3 F 97 H 18 150/110 H 96 Temperature: Afebrile Blood Pressure: Hypertensive (at 150/110) Pulse: Tachycardic (at 97) Respiratory Rate: Normal Appearance: Positive for: Well-Appearing, Non-Toxic Pain Distress: Mild Mental Status: Positive for: Alert and Oriented X 3 - Systems Exam Head: Present: Atraumatic, Normocephalic Pupils: Present: PERRL Extroacular Muscles: Present: EOMI Conjunctiva: Present: Normal Mouth: Present: Moist Mucous Membranes Neck: Present: Normal Range of Motion Respiratory/Chest: Present: Clear to Auscultation, Good Air Exchange. No: Respiratory Distress, Accessory Muscle Use Cardiovascular: Present: Regular Rate and Rhythm, Normal S1, S2. No: Murmurs Abdomen: No: Tenderness, Distention, Peritoneal Signs Upper Extremity: Present: Normal Inspection. No: Cyanosis, Edema Lower Extremity: Present: Normal Inspection. No: Edema Neurological: Present: GCS=15, CN II-XII Intact, Speech Normal Skin: Present: Warm, Dry, Normal Color. No: Rashes Psychiatric: Present: Alert, Oriented x 3, Normal Insight, Normal Concentration Medical Decision Making ED Course and Treatment: 11/14/17 10:25 Impression: 62 year old female presents to the emergency department for anxiety and chest discomfort. Plan: -- EKG -- Labs -- Ativan -- Urinalysis -- Reassess and disposition Prior Visits: Notes and results from previous visits were reviewed. Patient was last seen in the emergency department on 11/09/17 for left knee pain s/p fall at home and anxiety; requested Ativan. Progress Notes: 11/14/17 10:20 EKG: Ordered, reviewed, and independently interpreted the EKG. Rate : 97 BPM Rhythm : NSR Interpretation : No ST-segment elevations or depressions, no T-wave inversions, normal intervals. Comparison : No previous EKG for comparison. 11/14/17 10:30 Discussed case with criminal justice social worker who is aware of and agrees with plan. Psychiatrist will see patient. - Lab Interpretations Lab Results: 11/14/17 10:45 11/14/17 10:45 Lab Results 11/14/17 11:30: Urine Opiates Screen Negative, Urine Methadone Screen Negative, Ur Barbiturates Screen Negative, Ur Phencyclidine Scrn Negative, Ur Amphetamines Screen Negative, U Benzodiazepines Scrn Negative, U Oth Cocaine Metabols Negative, U Cannabinoids Screen Negative 11/14/17 11:30: Urine Color Yellow, Urine Appearance Clear, Urine pH 6.0, Ur Specific [place] 1.010, Urine Protein Negative, Urine Glucose (UA) Negative, Urine Ketones Negative, Urine Blood Small H, Urine Nitrate Negative, Urine Bilirubin Negative, Urine Urobilinogen 0.2, Ur Leukocyte Esterase Moderate H, Urine RBC 5 - 10, Urine WBC 20 - 25, Ur Epithelial Cells 6 - 8, Urine Bacteria Many 11/14/17 10:45: Lactate Dehydrogenase 878 H, Total Creatine Kinase 319 H, CK-MB (CK-2) 2.2, CK-MB (CK-2) % Cancelled, Troponin I < 0.01 11/14/17 10:45: Alcohol, Quantitative < 10 11/14/17 10:45: Salicylates < 1 L, Acetaminophen < 10.0 L 11/14/17 10:45: Sodium 145, Potassium 3.8, Chloride 109 H, Carbon Dioxide 26, Anion Gap 14, BUN 8, Creatinine 0.6 L, Est GFR ( Amer) > 60, Est GFR (Non -Af Amer) > 60, Random Glucose 113 H, Calcium 8.8, Total Bilirubin 0.6, AST 32, ALT 41, Alkaline Phosphatase 173 H, Total Protein 7.9, Albumin 4.3, Globulin 3.7 , Albumin/Globulin Ratio 1.2 11/14/17 10:45: WBC 5.9, RBC 4.20, Hgb 13.5, Hct 40.1, MCV 95.5, MCH 32.1, MCHC 33.7, RDW 14.0, Plt Count 142, MPV 10.2, Gran % 60.8, Lymph % (Auto) 28.2, [place] % (Auto) 9.9 H, Eos % (Auto) 0.9 L, Baso % (Auto) 0.2, Gran # 3.57, Lymph # ( Auto) 1.7, [place] # (Auto) 0.6, Eos # (Auto) 0.1, Baso # (Auto) 0.01 - RAD Interpretation Radiology Orders: 11/14/17 10:43 CHEST PORTABLE [RAD] Stat - EKG Interpretation Interpreted by ED Physician: Yes Type: 12 lead EKG - Medication Orders Current Medication Orders: Discontinued Medications Lorazepam (Ativan) 2 mg PO ONCE ONE PRN Reason: Protocol Stop: 11/14/17 11:02 Last Admin: 11/14/17 11:37 Dose: 2 mg - Scribe Statement The provider has reviewed the documentation as recorded by the Scribe Krystal Staples All medical record entries made by the Mattieibcara were at my direction and personally dictated by me. I have reviewed the chart and agree that the record accurately reflects my personal performance of the history, physical exam, medical decision making, and the department course for this patient. I have also personally directed, reviewed, and agree with the discharge instructions and disposition. Disposition/Present on Arrival - Present on Arrival Any Indicators Present on Arrival: Yes History of DVT/PE: Yes History of Uncontrolled Diabetes: No Urinary Catheter: No History of Decub. Ulcer: No History Surgical Site Infection Following: None - Disposition Have Diagnosis and Disposition been Completed?: Yes Diagnosis: Situational mixed anxiety and depressive disorder, Homelessness Disposition: HOME/ ROUTINE Disposition Time: 13:59 Patient Plan: Discharge Condition: GOOD Discharge Instructions (ExitCare): Anxiety, Adult (DC) Prescriptions: Albuterol HFA [Ventolin HFA 90 mcg/actuation (8 g)] 2 puff IH [id number] #1 puff amLODIPine [Norvasc] 5 mg PO DAILY #10 tab DiphenhydrAMINE [Benadryl] 25 mg PO QID #40 cap Enoxaparin [Lovenox] 120 mg SQ DAILY #10 syr Esomeprazole Magnesium [Nexium 24Hr] 40 mg PO DAILY #10 capsule. LORazepam [Ativan] 1 mg PO BID #20 tab Phenytoin, Extended [Dilantin Kapseals] 100 mg PO QID #120 cer Referrals: Jony Sy MD [Primary Care Provider] - Follow up with primary Forms: [employer] (Romanian)
[2017-11-14 10:56] LABS: BASO # 0.01 K/mm3 (0.0-2.0); BASO % 0.2 % (0.0-3.0); EOS # 0.1 (0.0-0.7); EOS % 0.9 % (1.5-5.0); GRAN # 3.57 (1.4-6.5); GRAN % 60.8 % (50.0-68.0); HEMOGLOBIN 13.5 g/dL (12.0-16.0); LYMPH # 1.7 (1.2-3.4); LYMPH % 28.2 % (22.0-35.0); MEAN CELL VOLUME 95.5 fl (80.0-105.0); MEAN CORPUSCULAR HEMOGLOBIN 32.1 pg (25.0-35.0); MEAN CORPUSCULAR HGB CONC 33.7 g/dl (31.0-37.0); MEAN PLATELET VOLUME 10.2 fl (7.0-11.0); MONO # 0.6 (0.1-0.6); MONO % 9.9 % (1.0-6.0); RBC 4.2 10^6/uL (3.5-6.1); WHITE BLOOD COUNT 5.9 10^3/ul (4.5-11.0)
[2017-11-14 11:06] LABS: ACETAMINOPHEN < 10.0 ug/ml (10.0-20.0); SALICYLATE < 1 mg/dL (2.0-20.0)
[2017-11-14 11:09] LABS: ALB/GLOB RATIO 1.2 (1.1-1.8); ALBUMIN 4.3 g/dL (3.0-4.8); ALT/SGPT 41 U/L (7-56); AST/SGOT 32 U/L (14-36); BLOOD UREA NITROGEN 8 mg/dL (7-21); CALCIUM 8.8 mg/dL (8.4-10.5); GFR AFRICAN-AMERICAN > 60; GFR NON-AFRICAN AMERICAN > 60
[2017-11-14 11:36] LABS: URINE BILIRUBIN NEGATIVE (NEGATIVE); URINE BLOOD SMALL (NEGATIVE); URINE GLUCOSE (UA) NEGATIVE (NEGATIVE); URINE LEUKOCYTE ESTERASE MODERATE Leu/uL (NEGATIVE); URINE PROTEIN NEGATIVE mg/dL (<30 mg/dL); URINE UROBILINOGEN 0.2 E.U./dL (<1 E.U./dL)
[2017-11-14 11:39] LABS: URINE APPEARANCE CLEAR (CLEAR); URINE COLOR YELLOW (YELLOW)
[2017-11-14 11:42] LABS: URINE BACTERIA MANY (NEG); URINE WBC 20 - 25 /hpf (0-6)
[2017-11-14 11:50] LABS: TROPONIN I < 0.01 ng/mL
[2017-11-14 11:55] LABS: BARBITURATES, UR NEGATIVE (NEGATIVE)
[2017-11-14 11:59] LABS: BENZODIAZEPINES, UR NEGATIVE (NEGATIVE); OPIATES, UR NEGATIVE (NEGATIVE); PHENCYCLIDINE, UR NEGATIVE (NEGATIVE)
--- NOTE | 2017-11-14 11:59 | RAD ---
Date of service: 11/14/2017 HISTORY: Anxiety, Chest Discomfort, Medical Clearance COMPARISON: 10/19/2017 FINDINGS: LUNGS: No active pulmonary disease. PLEURA: No significant pleural effusion identified, no pneumothorax apparent. CARDIOVASCULAR: Normal. OSSEOUS STRUCTURES: No significant abnormalities. VISUALIZED UPPER ABDOMEN: Normal. OTHER FINDINGS: None. IMPRESSION: No active disease.
[2017-11-14 12:41] LABS: CK-MB 2.2 ng/mL (0.0-3.6)
[2017-11-14 14:14] VITALS: BP 139/84; PULSE 82; TEMP 98.4; O2SAT 97
--- NOTE | 2017-11-14 14:49 | CARD ---
APPROVED REPORT Date of service: 11/14/2017 EKG Measurement Heart [id number] <Conclusion> Normal sinus rhythm Cannot rule out Anterior infarct, age undetermined T wave abnormality, consider inferolateral ischemia Abnormal ECG
== END 2017-11-14 14:23 | disposition home or self-care (01) ==
LOC: ED 10:16
DX: F32.9 Major depressive disorder, single episode, unspecified (principal); F41.8 Other specified anxiety disorders; Z59.0 Homelessness; I50.9 Heart failure, unspecified; I10 Essential (primary) hypertension; Z87.891 Personal history of nicotine dependence

== ENCOUNTER 2017-11-18 15:56 | Emergency (ER) | payer OTHER ==
[2017-11-18 15:57] VITALS: BMI 38.4
--- NOTE | 2017-11-18 17:14 | ED PDOC ---
Arrival/HPI - General Chief Complaint: Lower Extremity Problem/Injury Time Seen by Provider: 11/18/17 16:03 Historian: Patient - History of Present Illness Narrative History of Present Illness (Text): 11/18/17 17:16 62 yo F with pmh of anxiety, HTN, asthma, DVT on lovenox, is currently homeless states that she was recently evicted from her home, presents c/o anxiety, wants a refill of her ativan even though she already has a refill at the [facility] , which she can not fill until 11/24/17. Patient also reports of atraumatic mild R leg pain. Denies any depression, SI, HI, fever, chills, URI, , CP, SOB, N/V, abdominal pain, injury. Past Medical History - Infectious Disease Hx of Infectious Diseases: None - Tetanus Immunization Tetanus Immunization: Up to Date - Past Medical History Past Medical History: Non-Contributing - Cardiac Hx Cardiac Disorders: Yes Hx Congestive Heart Failure: Yes Hx Hypertension: Yes Hx Peripheral Edema: Yes - Pulmonary Hx Respiratory Disorders: Yes Hx Asthma: Yes Hx Bronchitis: Yes Hx Pulmonary Embolism: Yes - Neurological Hx Neurological Disorder: Yes Hx Migraine: Yes Hx Seizures: Yes (epilepsy) - HEENT Hx HEENT Disorder: No - Renal Hx Renal Disorder: No - Endocrine/Metabolic Hx Endocrine Disorders: No - Hematological/Oncological Hx Blood Disorders: Yes Hx Anemia: Yes - Integumentary Hx Dermatological Disorder: No - Musculoskeletal/Rheumatological Hx Musculoskeletal Disorders: Yes Hx Arthritis: Yes - Gastrointestinal Hx Gastrointestinal Disorders: Yes Hx Crohn's Disease: Yes Hx Gall Bladder Disease: Yes Hx Gastritis: Yes Hx Gastrointestinal Ulcer: Yes - Genitourinary/Gynecological Hx Genitourinary Disorders: No Hx Sexually Transmitted Diseases: No - Psychiatric Hx Psychophysiologic Disorder: Yes Hx Anxiety: Yes Hx Depression: Yes Hx Substance Use: Yes - Past Surgical History Past Surgical History: Non-Contributing - Surgical History Hx Cholecystectomy: Yes - Anesthesia Hx Anesthesia: Yes Hx Anesthesia Reactions: No Hx Malignant Hyperthermia: No - Suicidal Assessment Feels Threatened In Home Enviroment: No Family/Social History Family/Social History: No Known Family HX Smoking Status: Former Smoker Hx Alcohol Use: No Hx Substance Use: Yes Substance used: PAIN MEDICATION Hx Substance Use Treatment: No Allergies/Home Meds Allergies/Adverse Reactions: Allergies aspirin Allergy (Verified 10/19/17 00:56) SHORTNESS OF BREATH benzethonium chloride Allergy (Verified 10/19/17 00:56) URTICARIA benzocaine Allergy (Verified 10/19/17 00:56) ITCHING broccoli Allergy (Verified 10/19/17 00:56) ITCHING haloperidol Allergy (Verified 10/19/17 00:56) VOMITING ketorolac Allergy (Verified 10/19/17 00:56) ANAPHYLAXIS lidocaine Allergy (Verified 10/19/17 00:56) ITCHING nitroglycerin Allergy (Verified 10/19/17 00:56) URTICARIA oxycodone Allergy (Verified 10/19/17 00:56) SHORTNESS OF BREATH pineapple Allergy (Verified 10/19/17 00:56) ITCHING trazodone Allergy (Verified 10/19/17 00:56) SWELLING ziprasidone [From Geodon] Allergy (Verified 10/19/17 00:56) SHORTNESS OF BREATH steroids Allergy (Uncoded 09/15/17 09:17) "heart flutters", swelling Home Medications: Home Meds Medication Instructions Recorded Confirmed Enoxaparin [Lovenox] 80 mg SC BID 12/18/16 10/19/17 Phenytoin [Dilantin] 100 mg PO Q4 07/23/17 10/19/17 Review of Systems - Review of Systems Constitutional: absent: Fatigue, Fevers Respiratory: absent: SOB, Cough Cardiovascular: absent: Chest Pain, Palpitations Gastrointestinal: absent: Abdominal Pain, Diarrhea, Vomiting Genitourinary Female: absent: Dysuria, Frequency Musculoskeletal: absent: Arthralgias, Back Pain, Neck Pain Skin: absent: Rash, Skin Lesions Neurological: absent: Headache, Dizziness Psychiatric: Anxiety. absent: Depression, Suicidal Ideation Physical Exam Vital Signs Pulse Resp BP Pulse Ox 11/18/17 17:32 93 H 18 143/88 100 11/18/17 17:23 95 H 20 161/108 H 100 Temperature: Afebrile Blood Pressure: Normal Pulse: Regular Respiratory Rate: Normal Appearance: Positive for: Well-Appearing, Non-Toxic, Comfortable Mental Status: Positive for: Alert and Oriented X 3, other (Patient is tearful and crying. ) - Systems Exam Head: Present: Atraumatic, Normocephalic Pupils: Present: PERRL Extroacular Muscles: Present: EOMI Conjunctiva: Present: Normal Mouth: Present: Moist Mucous Membranes Neck: Present: Normal Range of Motion Respiratory/Chest: Present: Clear to Auscultation, Good Air Exchange. No: Respiratory Distress, Accessory Muscle Use Cardiovascular: Present: Regular Rate and Rhythm, Normal S1, S2. No: Murmurs Abdomen: No: Tenderness, Distention, Peritoneal Signs Back: Present: Normal Inspection Upper Extremity: Present: Normal Inspection. No: Cyanosis, Edema Lower Extremity: Present: Normal Inspection, NORMAL PULSES, Neurovascularly Intact, Capillary Refill < 2 s. No: Edema, Tenderness, Swelling, Temperature Abnormalties Neurological: Present: GCS=15, CN II-XII Intact, Speech Normal, Gait Normal Skin: Present: Warm, Dry, Normal Color. No: Rashes Psychiatric: Present: Alert, Oriented x 3, Normal Insight, Normal Concentration Medical Decision Making ED Course and Treatment: 11/18/17 17:13 Plan : - Ativan 2 mg PO Advised to follow up with primary care physician in 1-2 days without fail. Advised to speak to her pmd regarding changing the direction of her Rx medication as she will not be receiving a refill of her ativan from the ER today. Return to the emergency room at any time for any new or worsening symptoms. Patient states she fully agrees with and understands discharge instructions. States that she agrees with the plan and disposition. Verbalized and repeated discharge instructions and plan. I have given the patient opportunity to ask any additional questions. - Medication Orders Current Medication Orders: Discontinued Medications Lorazepam (Ativan) 2 mg PO ONCE ONE PRN Reason: Protocol Stop: 11/18/17 17:12 Last Admin: 11/18/17 17:27 Dose: 2 mg - PA / TUBE COREMAKER / Resident Statement MD/DO has reviewed & agrees with the documentation as recorded. Disposition/Present on Arrival - Present on Arrival Any Indicators Present on Arrival: Yes History of DVT/PE: Yes History of Uncontrolled Diabetes: No Urinary Catheter: No History of Decub. Ulcer: No History Surgical Site Infection Following: None - Disposition Have Diagnosis and Disposition been Completed?: Yes Diagnosis: Homelessness, Anxiety Disposition: HOME/ ROUTINE Disposition Time: 17:30 Patient Plan: Discharge Condition: STABLE Discharge Instructions (ExitCare): Anxiety, Adult (DC) Additional Instructions: Follow up with your pmd in 1-2 days without fail. Return to the ER at any time for any new or worsening symptoms. Forms: [employer] (Belarusian)
[2017-11-18 17:24] VITALS: O2SAT 100
[2017-11-18 17:32] VITALS: BP 143/88; PULSE 93; RESP 18
== END 2017-11-18 17:58 | disposition home or self-care (01) ==
LOC: ED 15:56
DX: Z59.0 Homelessness (principal); F41.9 Anxiety disorder, unspecified; Z87.891 Personal history of nicotine dependence

== ENCOUNTER → 2017-11-20 19:59 | Emergency (ER) | payer OTHER ==
[2017-11-20 20:20] VITALS: BMI 39.3
== END | disposition left against medical advice (07) ==
LOC: ED 19:59
DX: Z02.89 Encounter for other administrative examinations (principal); M79.605 Pain in left leg

== ENCOUNTER 2017-11-20 20:15 | Emergency (ER) | payer OTHER ==
[2017-11-20 20:20] VITALS: BMI 39.3
[2017-11-20 20:24] VITALS: RESP 18; TEMP 98.3
--- NOTE | 2017-11-20 22:49 | ED PDOC ---
Arrival/HPI - General Chief Complaint: Lower Extremity Problem/Injury Time Seen by Provider: 11/20/17 20:28 Historian: Patient - History of Present Illness Narrative History of Present Illness (Text): 11/20/17 2100 62 yr old female w/ hx of anxiety, DVT on lovenox, PE p/w LLE pain, 3/10, without radiation, feels exactly like previous LLE DVT pain except better. Pt notes tht she did not fall or hit her head or have any trauma. She denies any swelling to the leg. She also notes anxiety, without depression, SI or HI. She notes her anxiety comes and then affects her leg. She denies any other complaints. No fever, chills or night sweats. No CP or SOB. No abd pain, constipation or GI or complaints. Past Medical History - Provider Review Nursing Documentation Reviewed: Yes - Infectious Disease Hx of Infectious Diseases: None - Tetanus Immunization Tetanus Immunization: Up to Date - Past Medical History Past Medical History: Non-Contributing - Cardiac Hx Cardiac Disorders: Yes Hx Congestive Heart Failure: Yes Hx Hypertension: Yes Hx Peripheral Edema: Yes - Pulmonary Hx Respiratory Disorders: Yes Hx Asthma: Yes Hx Bronchitis: Yes Hx Pulmonary Embolism: Yes - Neurological Hx Neurological Disorder: Yes Hx Migraine: Yes Hx Seizures: Yes (epilepsy) - HEENT Hx HEENT Disorder: No - Renal Hx Renal Disorder: No - Endocrine/Metabolic Hx Endocrine Disorders: No - Hematological/Oncological Hx Blood Disorders: Yes Hx Anemia: Yes - Integumentary Hx Dermatological Disorder: No - Musculoskeletal/Rheumatological Hx Musculoskeletal Disorders: Yes Hx Arthritis: Yes - Gastrointestinal Hx Gastrointestinal Disorders: Yes Hx Crohn's Disease: Yes Hx Gall Bladder Disease: Yes Hx Gastritis: Yes Hx Gastrointestinal Ulcer: Yes - Genitourinary/Gynecological Hx Genitourinary Disorders: No Hx Sexually Transmitted Diseases: No - Psychiatric Hx Psychophysiologic Disorder: Yes Hx Anxiety: Yes Hx Depression: Yes Hx Substance Use: Yes - Past Surgical History Past Surgical History: Non-Contributing - Surgical History Hx Cholecystectomy: Yes - Anesthesia Hx Anesthesia: Yes Hx Anesthesia Reactions: No Hx Malignant Hyperthermia: No - Suicidal Assessment Feels Threatened In Home Enviroment: No Family/Social History - Physician Review Nursing Documentation Reviewed: Yes Family/Social History: No Known Family HX Smoking Status: Former Smoker Hx Alcohol Use: No Hx Substance Use: Yes Substance used: PAIN MEDICATION Hx Substance Use Treatment: No Allergies/Home Meds Allergies/Adverse Reactions: Allergies aspirin Allergy (Verified 10/19/17 00:56) SHORTNESS OF BREATH benzethonium chloride Allergy (Verified 10/19/17 00:56) URTICARIA benzocaine Allergy (Verified 10/19/17 00:56) ITCHING broccoli Allergy (Verified 10/19/17 00:56) ITCHING haloperidol Allergy (Verified 10/19/17 00:56) VOMITING ketorolac Allergy (Verified 10/19/17 00:56) ANAPHYLAXIS lidocaine Allergy (Verified 10/19/17 00:56) ITCHING nitroglycerin Allergy (Verified 10/19/17 00:56) URTICARIA oxycodone Allergy (Verified 10/19/17 00:56) SHORTNESS OF BREATH pineapple Allergy (Verified 10/19/17 00:56) ITCHING trazodone Allergy (Verified 10/19/17 00:56) SWELLING ziprasidone [From Geodon] Allergy (Verified 10/19/17 00:56) SHORTNESS OF BREATH steroids Allergy (Uncoded 09/15/17 09:17) "heart flutters", swelling Home Medications: Home Meds Medication Instructions Recorded Confirmed Enoxaparin [Lovenox] 80 mg SC BID 12/18/16 11/20/17 Review of Systems - Review of Systems Constitutional: Normal Eyes: Normal ENT: Normal Respiratory: Normal Cardiovascular: Normal Gastrointestinal: Normal Genitourinary Female: Normal Skin: Normal Neurological: Normal Endocrine: Normal Hemo/Lymphatic: Normal Psychiatric: Normal Physical Exam Vital Signs Temp Pulse Resp BP Pulse Ox 11/20/17 20:22 98.3 F 83 18 137/83 97 Temperature: Afebrile Blood Pressure: Normal Pulse: Regular Respiratory Rate: Normal Appearance: Positive for: Well-Appearing, Non-Toxic, Comfortable Pain Distress: None Mental Status: Positive for: Alert and Oriented X 3 - Systems Exam Head: Present: Atraumatic, Normocephalic Pupils: Present: PERRL Extroacular Muscles: Present: EOMI Conjunctiva: Present: Normal Mouth: Present: Moist Mucous Membranes Neck: Present: Normal Range of Motion Respiratory/Chest: Present: Clear to Auscultation, Good Air Exchange. No: Respiratory Distress, Accessory Muscle Use Cardiovascular: Present: Regular Rate and Rhythm, Normal S1, S2. No: Murmurs Abdomen: No: Tenderness, Distention, Peritoneal Signs Back: Present: Normal Inspection Upper Extremity: Present: Normal Inspection. No: Cyanosis, Edema Lower Extremity: Present: Normal Inspection. No: Edema Neurological: Present: GCS=15, CN II-XII Intact, Speech Normal Skin: Present: Warm, Dry, Normal Color. No: Rashes Psychiatric: Present: Alert, Oriented x 3, Normal Insight, Normal Concentration Medical Decision Making ED Course and Treatment: 11/20/17 2100 62 yr old female w/ hx of DVT on lovenox, anxiety, depression, PE p/w LLE pain, exactly alike previous DVT pain, better than before as well as anxiety. WEll appearing on exam, No LE edema. Already on Lovenox. strong DP b/l LE. Good coloration. Hx of anxiety. No depression, SI or HI. Good affect. Will give pain meds, anxiolytic and reassess. 11/20/17 2130 Pt reassessed, in NAD. Resting comfortable. LLE Exam and B/L LE exam remains stable. Pain totally resolved. Pt notes she is not anxious and she is ready to go home. Clear for d/c home. - Medication Orders Current Medication Orders: Discontinued Medications Acetaminophen (Tylenol 325mg Tab) 325 mg PO STAT STA Stop: 11/20/17 21:08 Last Admin: 11/20/17 21:28 Dose: 325 mg Lorazepam (Ativan) 1 mg PO ONCE ONE PRN Reason: Protocol Stop: 11/20/17 21:05 Last Admin: 11/20/17 21:28 Dose: 1 mg Disposition/Present on Arrival - Present on Arrival Any Indicators Present on Arrival: No History of DVT/PE: Yes History of Uncontrolled Diabetes: No Urinary Catheter: No History of Decub. Ulcer: No History Surgical Site Infection Following: None - Disposition Have Diagnosis and Disposition been Completed?: Yes Diagnosis: Leg pain, Anxiety Diagnosis: (Ruled Out): Anxiety about mastectomy Disposition: HOME/ ROUTINE Disposition Time: 09:45 Patient Plan: Discharge Patient Problems: Current Active Problems Problem Status Onset Anxiety Acute Leg pain Acute Condition: GOOD Discharge Instructions (ExitCare): Anxiety, Adult (DC) Additional Instructions: continue your injections for DVT as prescribed VERONA SAGASTUME, thank you for letting us take care of you today. Your provider was Abdulkadir Mendoza and you were treated for LEG PAIN. The emergency medical care you received today was directed at your acute symptoms. If you were prescribed any medication, please fill it and take as directed. It may take several days for your symptoms to resolve. Return to the Emergency Department if your symptoms worsen, do not improve, or if you have any other problems. Please contact your doctor or call one of the physicians/clinics you have been referred to that are listed on the Patient Visit Information form that is included in your discharge packet. Bring any paperwork you were given at discharge with you along with any medications you are taking to your follow up visit. Our treatment cannot replace ongoing medical care by a primary care provider outside of the emergency department. Thank you for allowing the [facility] team to be part of your care today. If you had an X-Ray or CT scan: A Radiologist will review the ED reading if any change in treatment is needed we will contact you. If you had a blood, urine, or wound culture: It will take several days for the results, if any change in treatment is needed we will contact you. If you had an STI test: It will take 48 hours for the results. Please call after 1 week if you have not heard back. Referrals: Jony Sy MD [Primary Care Provider] - Follow up with primary
[2017-11-20 23:12] VITALS: BP 134/72; PULSE 82; O2SAT 98
== END 2017-11-20 23:15 | disposition home or self-care (01) ==
LOC: ED 20:15
DX: M79.605 Pain in left leg (principal); F41.9 Anxiety disorder, unspecified

== ENCOUNTER 2017-12-01 12:03 | Emergency (ER) | payer OTHER ==
[2017-12-01 12:21] VITALS: BMI 38.4
[2017-12-01 12:24] VITALS: BP 136/78; PULSE 78; RESP 18; TEMP 98.2; O2SAT 98
--- NOTE | 2017-12-01 17:59 | ED PDOC ---
Arrival/HPI - General Chief Complaint: Psychiatric Evaluation Time Seen by Provider: 12/01/17 12:06 Historian: Patient - History of Present Illness Narrative History of Present Illness (Text): 12/01/17 12:10 A 62 year old female, whose past medical history includes anxiety and chest pain , presents to the emergency department for a psychiatric evaluation. Patient history shows she is a frequent patient in the emergency room. Patient denies any suicidal idealation, HI, hallucinations, headache, dizzyness, or any other complaints. Time/Duration: Prior to Arrival Symptom Onset: Gradual Activities at Onset: Light Context: Home Past Medical History - Provider Review Nursing Documentation Reviewed: Yes - Infectious Disease Hx of Infectious Diseases: None - Tetanus Immunization Tetanus Immunization: Up to Date - Past Medical History Past Medical History: Non-Contributing - Cardiac Hx Cardiac Disorders: Yes Hx Congestive Heart Failure: Yes Hx Hypertension: Yes Hx Peripheral Edema: Yes - Pulmonary Hx Respiratory Disorders: Yes Hx Asthma: Yes Hx Bronchitis: Yes Hx Pulmonary Embolism: Yes - Neurological Hx Neurological Disorder: Yes Hx Migraine: Yes Hx Seizures: Yes (epilepsy) - HEENT Hx HEENT Disorder: No - Renal Hx Renal Disorder: No - Endocrine/Metabolic Hx Endocrine Disorders: No - Hematological/Oncological Hx Blood Disorders: Yes Hx Anemia: Yes - Integumentary Hx Dermatological Disorder: No - Musculoskeletal/Rheumatological Hx Musculoskeletal Disorders: Yes Hx Arthritis: Yes - Gastrointestinal Hx Gastrointestinal Disorders: Yes Hx Crohn's Disease: Yes Hx Gall Bladder Disease: Yes Hx Gastritis: Yes Hx Gastrointestinal Ulcer: Yes - Genitourinary/Gynecological Hx Genitourinary Disorders: No Hx Sexually Transmitted Diseases: No - Psychiatric Hx Psychophysiologic Disorder: Yes Hx Anxiety: Yes Hx Depression: Yes Hx Substance Use: Yes - Past Surgical History Past Surgical History: Non-Contributing - Surgical History Hx Cholecystectomy: Yes - Anesthesia Hx Anesthesia: Yes Hx Anesthesia Reactions: No Hx Malignant Hyperthermia: No - Suicidal Assessment Feels Threatened In Home Enviroment: No Family/Social History - Physician Review Nursing Documentation Reviewed: Yes Family/Social History: Unknown Family HX Smoking Status: Former Smoker Hx Alcohol Use: No Hx Substance Use: Yes Substance used: PAIN MEDICATION Hx Substance Use Treatment: No Allergies/Home Meds Allergies/Adverse Reactions: Allergies aspirin Allergy (Verified 12/01/17 17:18) SHORTNESS OF BREATH benzethonium chloride Allergy (Verified 12/01/17 17:18) URTICARIA benzocaine Allergy (Verified 12/01/17 17:18) ITCHING broccoli Allergy (Verified 12/01/17 17:18) ITCHING haloperidol Allergy (Verified 12/01/17 17:18) VOMITING ketorolac Allergy (Verified 12/01/17 17:18) ANAPHYLAXIS lidocaine Allergy (Verified 12/01/17 17:18) ITCHING nitroglycerin Allergy (Verified 12/01/17 17:18) URTICARIA oxycodone Allergy (Verified 12/01/17 17:18) SHORTNESS OF BREATH pineapple Allergy (Verified 12/01/17 17:18) ITCHING trazodone Allergy (Verified 12/01/17 17:18) SWELLING ziprasidone [From Geodon] Allergy (Verified 12/01/17 17:18) SHORTNESS OF BREATH steroids Allergy (Uncoded 12/01/17 17:18) "heart flutters", swelling Home Medications: Home Meds Medication Instructions Recorded Confirmed Enoxaparin [Lovenox] 80 mg SC BID 12/18/16 11/20/17 Review of Systems - Physician Review All systems were reviewed & negative as marked: Yes - Review of Systems Neurological: absent: Headache, Dizziness Psychiatric: absent: Suicidal Ideation Physical Exam Vital Signs Reviewed: Yes Vital Signs Temp Pulse Resp BP Pulse Ox 12/01/17 12:24 98.2 F 78 18 136/78 98 Temperature: Afebrile Blood Pressure: Normal Pulse: Regular Respiratory Rate: Normal Appearance: Positive for: Well-Appearing, Non-Toxic, Comfortable Pain Distress: None Mental Status: Positive for: Alert and Oriented X 3 - Systems Exam Head: Present: Atraumatic, Normocephalic Pupils: Present: PERRL Extroacular Muscles: Present: EOMI Conjunctiva: Present: Normal Mouth: Present: Moist Mucous Membranes Neck: Present: Normal Range of Motion Respiratory/Chest: Present: Clear to Auscultation, Good Air Exchange. No: Respiratory Distress, Accessory Muscle Use Cardiovascular: Present: Regular Rate and Rhythm, Normal S1, S2. No: Murmurs Abdomen: No: Tenderness, Distention, Peritoneal Signs Back: Present: Normal Inspection Upper Extremity: Present: Normal Inspection. No: Cyanosis, Edema Lower Extremity: Present: Normal Inspection. No: Edema Neurological: Present: GCS=15, CN II-XII Intact, Speech Normal Skin: Present: Warm, Dry, Normal Color. No: Rashes Psychiatric: Present: Alert, Oriented x 3, Normal Insight, Normal Concentration Medical Decision Making ED Course and Treatment: 12/01/17 12:15 Impression: 62 year old female presenting to the emergency room for psychiatric evaluation. Plan: -- Reassess and disposition Prior Visits: Notes and results from previous visits were reviewed. Progress Notes: - Scribe Statement The provider has reviewed the documentation as recorded by the Scribe Mary Todd All medical record entries made by the Scribe were at my direction and personally dictated by me. I have reviewed the chart and agree that the record accurately reflects my personal performance of the history, physical exam, medical decision making, and the department course for this patient. I have also personally directed, reviewed, and agree with the discharge instructions and disposition. Disposition/Present on Arrival - Present on Arrival Any Indicators Present on Arrival: No History of DVT/PE: Yes History of Uncontrolled Diabetes: No Urinary Catheter: No History of Decub. Ulcer: No History Surgical Site Infection Following: None - Disposition Have Diagnosis and Disposition been Completed?: Yes Diagnosis: Feeling unhappy Disposition: HOME/ ROUTINE Disposition Time: 12:50 Condition: GOOD Discharge Instructions (ExitCare): Stress Additional Instructions: VERONA SAGASTUME, thank you for letting us take care of you today. The emergency medical care you received today was directed at your acute symptoms. If you were prescribed any medication, please fill it and take as directed. It may take several days for your symptoms to resolve. Return to the Emergency Department if your symptoms worsen, do not improve, or if you have any other problems. Please contact your doctor or call one of the physicians/clinics you have been referred to that are listed on the Patient Visit Information form that is included in your discharge packet. Bring any paperwork you were given at discharge with you along with any medications you are taking to your follow up visit. Our treatment cannot replace ongoing medical care by a primary care provider outside of the emergency department. Thank you for allowing the [facility] team to be part of your care today. Follow up with your primary care doctor this week for further management. Referrals: [facility], [Non-Staff] - Follow up with primary Forms: [employer] ([place]ian)
== END 2017-12-01 13:00 | disposition home or self-care (01) ==
LOC: ED 12:03
DX: R45.2 Unhappiness (principal); I50.9 Heart failure, unspecified; Z87.891 Personal history of nicotine dependence; I10 Essential (primary) hypertension

== ENCOUNTER 2017-12-01 17:08 | Inpatient (IN) | payer MEDICAID, OTHER ==
[2017-12-01 17:09] VITALS: BMI 38.4
[2017-12-01 17:22] VITALS: O2SAT 99
--- NOTE | 2017-12-01 18:29 | ED PDOC ---
Arrival/HPI - General Chief Complaint: Psychiatric Evaluation Time Seen by Provider: 12/01/17 17:57 Historian: Family - History of Present Illness Narrative History of Present Illness (Text): 12/01/17 18:24 A 62 year old female, whose past medical history includes anxiety and chest pain , presents to the emergency department brought in by EMS accompanied by family with suicidal ideations. Patients family reports she found patient on a park bench earlier this afternoon and upon questioning, patient replied she intended to commit suicide by overdosing on all her medications. HPI and ROS are affect due to patient being uncooperative. Time/Duration: 1-3 hours (early afternoon) Symptom Course: Unchanged Activities at Onset: Light Context: Sitting Past Medical History - Provider Review Nursing Documentation Reviewed: Yes - Infectious Disease Hx of Infectious Diseases: None - Tetanus Immunization Tetanus Immunization: Up to Date - Past Medical History Past Medical History: Non-Contributing - Cardiac Hx Cardiac Disorders: Yes Hx Congestive Heart Failure: Yes Hx Hypertension: Yes Hx Peripheral Edema: Yes - Pulmonary Hx Respiratory Disorders: Yes Hx Asthma: Yes Hx Bronchitis: Yes Hx Pulmonary Embolism: Yes - Neurological Hx Neurological Disorder: Yes Hx Migraine: Yes Hx Seizures: Yes - HEENT Hx HEENT Disorder: No - Renal Hx Renal Disorder: No - Endocrine/Metabolic Hx Endocrine Disorders: No - Hematological/Oncological Hx Blood Disorders: Yes Hx Anemia: Yes - Integumentary Hx Dermatological Disorder: No - Musculoskeletal/Rheumatological Hx Musculoskeletal Disorders: Yes Hx Arthritis: Yes - Gastrointestinal Hx Gastrointestinal Disorders: Yes Hx Crohn's Disease: Yes Hx Gall Bladder Disease: Yes Hx Gastritis: Yes Hx Gastrointestinal Ulcer: Yes - Genitourinary/Gynecological Hx Genitourinary Disorders: No Hx Sexually Transmitted Diseases: No - Psychiatric Hx Psychophysiologic Disorder: Yes Hx Anxiety: Yes Hx Depression: Yes Hx Substance Use: Yes - Past Surgical History Past Surgical History: Non-Contributing - Surgical History Hx Cholecystectomy: Yes - Anesthesia Hx Anesthesia: Yes Hx Anesthesia Reactions: No Hx Malignant Hyperthermia: No - Suicidal Assessment Feels Threatened In Home Enviroment: No Family/Social History - Physician Review Nursing Documentation Reviewed: Yes Family/Social History: Unknown Family HX Smoking Status: Former Smoker Hx Alcohol Use: No Hx Substance Use: Yes Substance used: RX MEDICATION Hx Substance Use Treatment: No Allergies/Home Meds Allergies/Adverse Reactions: Allergies aspirin Allergy (Verified 12/01/17 17:18) SHORTNESS OF BREATH benzethonium chloride Allergy (Verified 12/01/17 17:18) URTICARIA benzocaine Allergy (Verified 12/01/17 17:18) ITCHING broccoli Allergy (Verified 12/01/17 17:18) ITCHING haloperidol Allergy (Verified 12/01/17 17:18) VOMITING ketorolac Allergy (Verified 12/01/17 17:18) ANAPHYLAXIS lidocaine Allergy (Verified 12/01/17 17:18) ITCHING nitroglycerin Allergy (Verified 12/01/17 17:18) URTICARIA oxycodone Allergy (Verified 12/01/17 17:18) SHORTNESS OF BREATH pineapple Allergy (Verified 12/01/17 17:18) ITCHING trazodone Allergy (Verified 12/01/17 17:18) SWELLING ziprasidone [From Geodon] Allergy (Verified 12/01/17 17:18) SHORTNESS OF BREATH steroids Allergy (Uncoded 12/01/17 17:18) "heart flutters", swelling Home Medications: Home Meds Medication Instructions Recorded Confirmed Enoxaparin [Lovenox] 80 mg SC BID 12/18/16 11/20/17 Review of Systems - Review of Systems Systems not reviewed;Unavailable: Uncooperative Physical Exam - Physical Exam Physical Exam Limitations: Uncooperative Vital Signs Reviewed: Yes Vital Signs Temp Pulse Resp BP Pulse Ox 12/01/17 19:15 72 17 118/62 99 12/01/17 17:19 98.5 F 92 H 16 146/85 99 Temperature: Afebrile Blood Pressure: Normal Pulse: Tachycardic Respiratory Rate: Normal Appearance: Positive for: Well-Appearing, Non-Toxic, Comfortable Pain Distress: None Mental Status: Positive for: Alert and Oriented X 3 - Systems Exam Head: Present: Atraumatic, Normocephalic Pupils: Present: PERRL Extroacular Muscles: Present: EOMI Conjunctiva: Present: Normal Mouth: Present: Moist Mucous Membranes Neck: Present: Normal Range of Motion Respiratory/Chest: Present: Clear to Auscultation, Good Air Exchange. No: Respiratory Distress, Accessory Muscle Use Cardiovascular: Present: Regular Rate and Rhythm, Normal S1, S2. No: Murmurs Abdomen: No: Tenderness, Distention, Peritoneal Signs Back: Present: Normal Inspection Upper Extremity: Present: Normal Inspection. No: Cyanosis, Edema Lower Extremity: Present: Normal Inspection. No: Edema Neurological: Present: GCS=15, CN II-XII Intact, Speech Normal Skin: Present: Warm, Dry, Normal Color. No: Rashes Psychiatric: Present: Alert, Oriented x 3, Normal Insight, Normal Concentration Medical Decision Making ED Course and Treatment: 12/01/17 18:30 Impression: 62 year old female presenting to the emergency room with suicidal ideation. Plan: -- EKG -- Acetaminophen stat -- Alcohol serum stat -- Comp metabolic panel -- Drug screen, urine stat -- Salicylate state -- CBC -- Chest X-ray -- Urinalysis -- Reassess and disposition Prior Visits: Notes and results from previous visits were reviewed. Progress Notes: Patient medically cleared for psychiatric evaluation/admission. - Lab Interpretations Lab Results: 12/01/17 19:35 12/01/17 19:35 Lab Results 12/01/17 19:35: Alcohol, Quantitative < 10 12/01/17 19:35: Salicylates < 1 L, Acetaminophen < 10.0 L 12/01/17 19:35: Urine Opiates Screen Negative, Urine Methadone Screen Negative, Ur Barbiturates Screen Negative, Ur Phencyclidine Scrn Negative, Ur Amphetamines Screen Negative, U Benzodiazepines Scrn Negative, U Oth Cocaine Metabols Negative, U Cannabinoids Screen Negative 12/01/17 19:35: Sodium 145, Potassium 3.5 L, Chloride 108 H, Carbon Dioxide 29, Anion Gap 12, BUN 5 L, Creatinine 0.6 L, Est GFR ( Amer) > 60, Est GFR ( Non-Af Amer) > 60, Random Glucose 94, Calcium 8.7, Total Bilirubin 0.3, AST 31, ALT 30, Alkaline Phosphatase 153 H, Total Protein 7.5, Albumin 3.9, Globulin 3.7 , Albumin/Globulin Ratio 1.1 12/01/17 19:35: Urine Color Light yellow, Urine Appearance Clear, Urine pH 7.0, Ur Specific [place] 1.010, Urine Protein Negative, Urine Glucose (UA) Negative, Urine Ketones Negative, Urine Blood Trace-intact H, Urine Nitrate Negative, Urine Bilirubin Negative, Urine Urobilinogen 0.2, Ur Leukocyte Esterase Trace H , Urine RBC 0 - 2, Urine WBC 0 - 2, Ur Epithelial Cells 0 - 2, Urine Bacteria Few 12/01/17 19:35: WBC 4.8, RBC 3.93, Hgb 12.5, Hct 37.8, MCV 96.2, MCH 31.8, MCHC 33.1, RDW 13.6, Plt Count 168, MPV 10.3, Gran % 56.1, Lymph % (Auto) 34.4, [place] % (Auto) 8.5 H, Eos % (Auto) 0.8 L, Baso % (Auto) 0.2, Gran # 2.69, Lymph # ( Auto) 1.7, [place] # (Auto) 0.4, Eos # (Auto) 0.0, Baso # (Auto) 0.01 - RAD Interpretation Radiology Orders: 12/01/17 17:58 CHEST ONE VIEW [RAD] Stat - Scribe Statement The provider has reviewed the documentation as recorded by the Barber Todd All medical record entries made by the Mattieibe were at my direction and personally dictated by me. I have reviewed the chart and agree that the record accurately reflects my personal performance of the history, physical exam, medical decision making, and the department course for this patient. I have also personally directed, reviewed, and agree with the discharge instructions and disposition. Disposition/Present on Arrival - Present on Arrival Any Indicators Present on Arrival: No History of DVT/PE: Yes History of Uncontrolled Diabetes: No Urinary Catheter: No History of Decub. Ulcer: No History Surgical Site Infection Following: None - Disposition Have Diagnosis and Disposition been Completed?: Yes Diagnosis: Adjustment disorder, Depression Disposition: HOSPITALIZED Disposition Time: 19:45 Condition: STABLE
[2017-12-01 20:01] LABS: ACETAMINOPHEN < 10.0 ug/ml (10.0-20.0); SALICYLATE < 1 mg/dL (2.0-20.0)
[2017-12-01 20:09] LABS: BASO # 0.01 K/mm3 (0.0-2.0); BASO % 0.2 % (0.0-3.0); EOS % 0.8 % (1.5-5.0); GRAN # 2.69 (1.4-6.5); GRAN % 56.1 % (50.0-68.0); HEMOGLOBIN 12.5 g/dL (12.0-16.0); LYMPH # 1.7 (1.2-3.4); LYMPH % 34.4 % (22.0-35.0); MEAN CELL VOLUME 96.2 fl (80.0-105.0); MEAN CORPUSCULAR HEMOGLOBIN 31.8 pg (25.0-35.0); MEAN CORPUSCULAR HGB CONC 33.1 g/dl (31.0-37.0); MEAN PLATELET VOLUME 10.3 fl (7.0-11.0); MONO # 0.4 (0.1-0.6); MONO % 8.5 % (1.0-6.0); RBC 3.93 10^6/uL (3.5-6.1); RED CELL DISTRIBUTION WIDTH 13.6 % (11.5-14.5); URINE BILIRUBIN NEGATIVE (NEGATIVE); URINE BLOOD TRACE-INTACT (NEGATIVE); URINE GLUCOSE (UA) NEGATIVE (NEGATIVE); URINE LEUKOCYTE ESTERASE TRACE Leu/uL (NEGATIVE); URINE PROTEIN NEGATIVE mg/dL (<30 mg/dL); URINE UROBILINOGEN 0.2 E.U./dL (<1 E.U./dL); WHITE BLOOD COUNT 4.8 10^3/ul (4.5-11.0)
[2017-12-01 20:10] LABS: URINE APPEARANCE CLEAR (CLEAR); URINE COLOR LIGHT YELLOW (YELLOW)
[2017-12-01 20:12] LABS: OPIATES, UR NEGATIVE (NEGATIVE)
[2017-12-01 20:16] LABS: ALB/GLOB RATIO 1.1 (1.1-1.8); ALBUMIN 3.9 g/dL (3.0-4.8); ALT/SGPT 30 U/L (7-56); AST/SGOT 31 U/L (14-36); BARBITURATES, UR NEGATIVE (NEGATIVE); BENZODIAZEPINES, UR NEGATIVE (NEGATIVE); BLOOD UREA NITROGEN 5 mg/dL (7-21); CALCIUM 8.7 mg/dL (8.4-10.5); GFR AFRICAN-AMERICAN > 60; GFR NON-AFRICAN AMERICAN > 60; PHENCYCLIDINE, UR NEGATIVE (NEGATIVE)
[2017-12-01 20:40] LABS: URINE BACTERIA FEW (NEG); URINE EPITHELIAL CELLS 0 - 2 /hpf (0-5); URINE RBC 0 - 2 /hpf (0-2); URINE WBC 0 - 2 /hpf (0-6)
[2017-12-02] MEDS ORDERED: Albuterol HFA 90 mcg/actuation (8 g) IH PRN (00:17)
[2017-12-02] MEDS ORDERED: Phenytoin 100 mg/4 ml Oral Susp UD PO ONE (00:31)
[2017-12-02] MEDS ORDERED: Enoxaparin 80 mg Syringe SC ONE (00:31)
--- NOTE | 2017-12-02 02:01 | PCM.BM ---
<Sulema Basilio - Last Filed: 12/02/17 02:00> Treatment Plan Problems - Problems identified on initial assessmt Hopelessness/Helplessness Date Initiated: 12/02/17 Time Initiated: 02:00 Assessment reference: NA Status: Active Ineffective Coping Date Initiated: 12/02/17 Time Initiated: 02:00 Assessment reference: NA Status: Active Medication nonadherence Date Initiated: 12/02/17 Time Initiated: 02:00 Assessment reference: NA Status: Active Treatment assets and liabiliti Patient Assests: self-reliant, ADL independent, good support system, cognitively intact Patient Liabilities: live alone, financial problems, medical problems - Milieu Protocol Maintain good personal hygiene: daily Encourage regular showers, daily Remind patient to perform daily oral care, daily Assist patient to perform ADL's Conduct patient checks and document Observation sheet: Q15 minutes Maintain personal safety: every shift Educate patient to report safety concerns to staff, every shift Monitor environment for contraband/sharps Medication safety: Monitor for expected outcome, potential side effects: every shift, Assess barriers to learning: every shift, Assess readiness for medication education: every shift Discharge/Continuing Care - Education Needs Education Needs: Patient Medication, Patient Diagnosis/Disease Process, Patient Coping Skills, Patient Anger Management skills, Patient Placement options, Patient Community resources, Patient Activities of Daily Living, Patient Pain, Patient Nutrition, Patient Health Practices/Safety, Patient Personal Hygiene/ Grooming, Patient Aftercare Safety Plan - Discharge Discharge Criteria: Tolerates medication w/o severe side effects, Free of Suicidal thoughts, Free of paranoid thoughts, Free of agitation, Ability to care for self <Samia Campbell - Last Filed: 12/02/17 15:21> - Diagnosis (1) Adjustment disorder Status: Acute Interventions: 12/02/17 15:21 Psychoeducation Psychopharmacology/adjustment of medications as needed/ monitoring possible side effects Evaluate pt on daily basis Compliance with medications and follow up appointments Suicide and homicide risk assessment and prevention Relapse prevention Reduction of symptoms Improve functional status Family involvement As outpatient: cognitive behavioral therapy <Digna Alvarez - Last Filed: 12/03/17 11:52>
--- NOTE | 2017-12-02 08:40 | RAD ---
Date of service: 12/01/2017 PROCEDURE: CHEST RADIOGRAPH, 1 VIEW HISTORY: r/o infiltrate COMPARISON: 11/14/2017 FINDINGS: LUNGS: The lungs are well inflated and clear. There is mild pulmonary venous congestion. PLEURA: No pneumothorax or pleural fluid seen. CARDIOVASCULAR: There is mild cardiomegaly. OSSEOUS STRUCTURES: No significant abnormalities. VISUALIZED UPPER ABDOMEN: Normal. OTHER FINDINGS: None. IMPRESSION: Mild cardiomegaly and pulmonary venous congestion. No acute pulmonary disease.
[2017-12-02] MEDS ORDERED: Potassium Chloride 20 mEq ER Tab PO STA (09:24)
[2017-12-02] MEDS ORDERED: Albuterol-Ipratrop 3 mg / 0.5 (3 ml) UD IH STA (11:34)
[2017-12-02] MEDS: Enoxaparin 100 mg Syringe SC SCH ×2 (11:39→22:20)
[2017-12-02] MEDS ORDERED: Albuterol-Ipratrop 3 mg / 0.5 (3 ml) UD IH PRN (11:58)
[2017-12-02 13:00] LABS: GLUCOSE,FASTING 109 mg/dL (65-110); HDL CHOLESTEROL 81 mg/dL (29-60)
[2017-12-02 13:11] LABS: LDL CHOLESTEROL 103 mg/dL (0-129)
[2017-12-02 13:12] LABS: TROPONIN I < 0.01 ng/mL
[2017-12-02] MEDS ORDERED: Iohexol 350 MG/100 ML VIAL ONE (14:43)
--- NOTE | 2017-12-02 15:21 | PCM.PSYCH ---
Initial Psychiatric Evaluation - Initial Psychiatric Evaluation Type of Admission: Voluntary Legal Status: Capacity (ppatient has capacity to sign consent for treatment) Chief Complaint (in patient's own words): "I never said that I'm suicidal, I'm not depressed, I want to go, I need to have my pain medications". Patient's Reaction to Hospitalization: Patient was admitted to the psychiatric inpatient unit for evaluation and stabilization of depressive symptoms, possible suicidal ideation. History of Present Illness and Precipitating Events: shortly patient is 70 year old -[place]wegian female, self reported history of depression, anxiety, history of [facility] psych hospitalization in 2016 pt was d/c AGAINST MEDICAL ADVICE, prior to that [facility] psych unit, patient lost her apartment, currently staying in boarding home, patient also has a lot of medical issues including asthma, pt also on Lovenox, pt also has h/o pesudoseizured, addiction to the benzos, multiple ED visits, pt was sent by [facility] for evaluation of SI pt expressed thoughts of harming self during the intake, pt also verbalized thoughts of harming self to the cousin who brought pt to the hospital for further evaluation. He shouldn't was seen and examined today in her room, patient reported that she feels shortness of breath because of her asthma, medical team was called, patient was seen by Dr. Jordan, discussed with Dr. Jordan in details, medical team will order some tests for the pt. patient was able to handle the interview, vital signs are stable, personal hygiene was fair,, ADLs are good. Patient reported that she lost her apartment where she lives for past 12 years, patient reports that she was stressed out about staying in boarding home because "it is very hot in their", patient reported that by the end of the month she will have her own room, patient also reported that in January as per case maker she will have rooming housing then. He shouldn't was annoyed with all of the questions, patient said "I never said that I'm suicidal", it is very doubtful because to resources patient cousin as well as [facility] confirmed that patient was verbalizing thoughts of killing herself. Patient reported that she was feeling depressed, hopeless, helpless, but denied any thoughts of killing herself or others. Patient denied that she is hearing voices, denied seeing things, denied paranoid ideations, patient presented to be guarded but not acutely psychotic. Patient reports that she suffered from anxiety patient reports that she has panic attacks, at the same time "it is hard to differentiate is at my asthma or anxiety". Patient contracted for safely. Presently patient denies depression or discomfort. She is in fair control and there were no behavioral issues overnight. as per previous admission SOCIAL Born and raised in [place]. Patient is single never . Patient reports that she has eight grown children. Patient resides by herself. She is unemployed and disabled. She denies any history of legal issues. Patient denies having any drug or alcohol issues however upon further questioning patient admitted to she required detox at [facility] for Ativan use in 2014. Prior records indicate that patient has a history of benzodiazepines and opiates dependency with repeated presentations to our ER seeking medication. Patient has been consulted by me on multiple occasions. In the past, patient required multiple 1 day refills of an Ativan taper to ensure patient did not take more than prescribed. PSYCHIATRIC HISTORY Patient reports one prior hospitalization at [facility] 2015, Patient did not follow up with aftercare referrals and does not currently see an outpatient psychiatrist. She denies any history of suicide attempts. meds were confirmed by the pharmacy. pt was seen by medical team for asthma, chest tightness, h/o blood clots, pt is on lovenox. Family h/o: denied 12/01/17 19:35 12/01/17 19:35 Lab Results 12/02/17 12:20: Fasting Glucose 109, Troponin I < 0.01, Triglycerides 90, Cholesterol 254 H, LDL Cholesterol Direct 103, HDL Cholesterol 81 H 12/02/17 12:20: TSH 3rd Generation 0.52 12/01/17 19:35: Alcohol, Quantitative < 10 12/01/17 19:35: Salicylates < 1 L, Acetaminophen < 10.0 L 12/01/17 19:35: Urine Opiates Screen Negative, Urine Methadone Screen Negative, Ur Barbiturates Screen Negative, Ur Phencyclidine Scrn Negative, Ur Amphetamines Screen Negative, U Benzodiazepines Scrn Negative, U Oth Cocaine Metabols Negative, U Cannabinoids Screen Negative 12/01/17 19:35: Sodium 145, Potassium 3.5 L, Chloride 108 H, Carbon Dioxide 29, Anion Gap 12, BUN 5 L, Creatinine 0.6 L, Est GFR ( Amer) > 60, Est GFR ( Non-Af Amer) > 60, Random Glucose 94, Calcium 8.7, Total Bilirubin 0.3, AST 31, ALT 30, Alkaline Phosphatase 153 H, Total Protein 7.5, Albumin 3.9, Globulin 3.7 , Albumin/Globulin Ratio 1.1 12/01/17 19:35: Urine Color Light yellow, Urine Appearance Clear, Urine pH 7.0, Ur Specific [place] 1.010, Urine Protein Negative, Urine Glucose (UA) Negative, Urine Ketones Negative, Urine Blood Trace-intact H, Urine Nitrate Negative, Urine Bilirubin Negative, Urine Urobilinogen 0.2, Ur Leukocyte Esterase Trace H , Urine RBC 0 - 2, Urine WBC 0 - 2, Ur Epithelial Cells 0 - 2, Urine Bacteria Few 12/01/17 19:35: WBC 4.8, RBC 3.93, Hgb 12.5, Hct 37.8, MCV 96.2, MCH 31.8, MCHC 33.1, RDW 13.6, Plt Count 168, MPV 10.3, Gran % 56.1, Lymph % (Auto) 34.4, [place] % (Auto) 8.5 H, Eos % (Auto) 0.8 L, Baso % (Auto) 0.2, Gran # 2.69, Lymph # ( Auto) 1.7, [place] # (Auto) 0.4, Eos # (Auto) 0.0, Baso # (Auto) 0.01 Vital Signs Temp Pulse Resp BP Pulse Ox 12/02/17 10:07 124/57 L 12/02/17 07:19 97.2 F L 73 20 124/57 L 12/01/17 21:50 98.3 F 79 18 138/74 99 12/01/17 21:40 97.8 F 80 18 124/81 99 12/01/17 19:15 72 17 118/62 99 12/01/17 17:19 98.5 F 92 H 16 146/85 99 Current Medications: Active Medications Generic Name Dose Route Start Last Admin Trade Name Freq PRN Reason Stop Dose Admin Albuterol 2 puff 12/02/17 00:17 12/02/17 11:40 Ventolin Hfa 90 Mcg/Actuation (8 G) IH 2 inh [id number] PRN Administration Shortness of Breath Albuterol/Ipratropium 3 ml 12/02/17 11:58 Duoneb 3 Mg/0.5 Mg (3 Ml) Ud IH [id number] PRN Cough and congestion Amlodipine Besylate 10 mg 12/02/17 08:00 12/02/17 10:07 Norvasc PO 10 mg DAILY GENE Administration Diphenhydramine HCl 25 mg 12/02/17 00:17 Benadryl PO Q6 PRN Allergy symptoms Enoxaparin Sodium 100 mg 12/02/17 10:45 12/02/17 11:39 Lovenox SC 100 mg Q12H GENE Administration Protocol Hydromorphone HCl 2 mg 12/02/17 13:00 12/02/17 12:07 Dilaudid PO 2 mg QID PRN Administration Pain, severe (8-10) Lorazepam 2 mg 12/02/17 10:18 12/02/17 10:24 Ativan PO 2 mg BID PRN Administration Anxiety Protocol Phenytoin Sodium 100 mg 12/02/17 10:00 12/02/17 11:28 Dilantin PO 100 mg QID GENE Administration meds were confirmed with pt's pharmacy Past Psychiatric History - Past Psychiatric History Previous Treatment History: Inpatient Prior Professional Help: see HPI Prior Psychiatric Treatment: see HPI At what hospital: see HPI Duration: see HPI Nature of Treatment: see HPI Explanation of prior treatment: see HPI History of Abuse: see HPI History of ETOH/Drug Use: see HPI denies smoking History of Family Illness: see HPI Pertinent Medical Hx (Current Medical&Sleep Prob, Allergies): Allergies Allergy/AdvReac Type Severity Reaction Status Date / Time aspirin Allergy SHORTNESS Verified 12/02/17 01:11 OF BREATH benzethonium chloride Allergy URTICARIA Verified 12/02/17 01:11 benzocaine Allergy ITCHING Verified 12/02/17 01:11 broccoli Allergy ITCHING Verified 12/02/17 01:11 haloperidol Allergy VOMITING Verified 12/02/17 01:11 ketorolac Allergy ANAPHYLAXIS Verified 12/02/17 01:11 lidocaine Allergy ITCHING Verified 12/02/17 01:11 nitroglycerin Allergy URTICARIA Verified 12/02/17 01:11 oxycodone Allergy SHORTNESS Verified 12/02/17 01:11 OF BREATH pineapple Allergy ITCHING Verified 12/02/17 01:11 trazodone Allergy SWELLING Verified 12/02/17 01:11 ziprasidone [From Geodon] Allergy SHORTNESS Verified 12/02/17 01:11 OF BREATH steroids Allergy "heart Uncoded 12/02/17 01:11 flutters", swelling Enoxaparin [Lovenox] 80 mg SC BID 12/18/16 Albuterol HFA [Ventolin HFA 90 mcg/actuation (8 g)] 2 puff IH [id number] #1 puff DiphenhydrAMINE [Benadryl] 25 mg PO QID #40 cap 11/14/17 Esomeprazole Magnesium [Nexium 24Hr] 40 mg PO DAILY #10 capsule. 11/14/17 LORazepam [Ativan] 1 mg PO BID #20 tab 11/14/17 Phenytoin, Extended [Dilantin [place]] 100 mg PO QID #120 cer 11/14/17 amLODIPine [Norvasc] 5 mg PO DAILY #10 tab 11/14/17 Review of Systems - Review of Systems Systems not reviewed;Unavailable: Acuity of Condition - EENT Eyes: As Per HPI Ears: As Per HPI Nose/Mouth/Throat: As Per HPI - Breasts Breasts: As Per HPI - Cardiovascular Cardiovascular: As Per HPI - Respiratory Respiratory: As Per HPI - Gastrointestinal Gastrointestinal: As Per HPI - Genitourinary Genitourinary: As Per HPI - Reproductive: Female Reproductive:Female: As Per HPI - Menstruation Menstruation: As Per HPI - Musculoskeletal Musculoskeletal: As Par HPI - Integumentary Integumentary: As Per HPI - Neurological Neurological: As Per HPI - Psychiatric Psychiatric: As Per HPI - Endocrine Endocrine: As Per HPI - Hematologic/Lymphatic Hematologic: As Per HPI Mental Status Examination - Personal Presentation Personal Presentation: Looks stated age - Affect Affect: Flat (annoyed, ) - Motor Activity Motor Activity: Calm - Reliability in Providing Information Reliability in Providing Information: Fair - Speech Speech: Organized - Mood Mood: Depressed, Anxious - Formal Thought Process Formal Thought Process: No Impairment - Obsessions/Compulsions Obsessions: None Compulsions: None - Cognitive Functions Orientation: Person Sensorium: Alert Attention/Concentration: Easily distracted Estimate of Intelligence: Average Judgement: Intact, as evidence by: Insight regarding need for hospitalization - Risk Risk: Suicidal, Diminished functioning - Strength & Assets Inventory Strength & Assets Inventory: Family support, Cooperative - Limitations Limitations: Other (medical issues) DSM 5 DX - DSM 5 DSM 5 Diagnosis: r/o MDD r/o adjustment disorder r/o benzos and pain meds addiction r/o anxiety and depression due to [facility] - Recommended/Plan of Treatment Treatment Recommendations and Plan of Treatment: Milieu/structure/supportive therapy Medical consult appreciated, see medical team note for more detailed info consultation for discharge plan and social issues Med management all meds confirmed and resumed Enoxaparin [Lovenox] 80 mg SC BID Albuterol HFA [Ventolin HFA 90 mcg/actuation (8 g)] 2 puff IH [id number] LORazepam [Ativan] 2 mg PO BID Phenytoin, Extended [Dilantin [place]] 100 mg PO QID dilaudid as per medical team Family involvement, collaterals from pt's daughters,pt gave consent, please see note for more detailed info Follow up on labs Will monitor closely Pt was educated about risk/benefits and alternatives of medications, coping strategies (safety plan, suicide prevention), relapse prevention, importance of follow up with psychiatrist and therapist, stay away from drugs/alcohol/smoking pt submitted 48 hr notice, will monitor closely does not meet criteria for [facility] Projected ELOS: 7days Prognosis: guarded Discharge Plan and Discharge Criteria: Pt will be not depressed or manic, will be more hopeful, will be not psychotic or anxious, will be not having thoughts of harming self or others, will be tolerating medications well, will not have major side effects, will be able to function, will not pose threat to self or others. - Smoking Cessation Smoking Cessation Initiated: No Reason for not providing: denied
--- NOTE | 2017-12-02 16:37 | CP.PCM.CON ---
History of Present Illness - History of Present Illness History of Present Illness: Juvenal Jonesel PGY1 Internal Medicine Senior Software Architect - Hospital Medicine Consult Note 62F w/ PMH HTN, DVT, epilepsy, anxiety, depression, stroke, colon cancer s/p colectomy, and bronchitis admitted to [facility] behavioral health for suicidal ideation. Medicine was consulted because patient was complaining of chest pain. Pain was located in mid sternal position, and is a recurrent episode. She describes the pain as a sharp chest tightness and has some associated radiation into her right shoulder and jaw. She rated pain initially as a 10/10 now a 7/ 10. Chest pain started one hour prior to consultation. She denies any aggravating/alleviating factors. ROS: Denies Fevers, chills, N/V/D/C, urinary complaitns, SOB, dizziness, headaches, lightheadedness PMD: Dr. Sy PSH: Hysterectomy Colectomy PMH: as above Home Rx: Norvasc 5QD, Phenytoin 100 QID, Nexium 40 QD, Lovenox 80 BID, Benadryl 25 QID, Ventolin 2puff Q6H resp Fam Hx: Maternal + Paternal history of cardiac disease Social: Quit EtOH 12 years ago, reported no illicit drug use, 22 pack year Review of Systems - Review of Systems All systems: reviewed and no additional remarkable complaints except Review of Systems: as per HPI Past Patient History - Infectious Disease Hx of Infectious Diseases: None - Tetanus Immunizations Tetanus Immunization: Up to Date - Past Medical History & Family History Past Medical History?: Yes - Past Social History Smoking Status: Former Smoker - CARDIAC Hx Cardiac Disorders: Yes Hx Congestive Heart Failure: Yes Hx Hypertension: Yes Hx Peripheral Edema: Yes - PULMONARY Hx Respiratory Disorders: Yes Hx Asthma: Yes Hx Bronchitis: Yes Hx Pulmonary Embolism: Yes - NEUROLOGICAL Hx Neurological Disorder: Yes Hx Migraine: Yes Hx Seizures: Yes - HEENT Hx HEENT Problems: No - RENAL Hx Chronic Kidney Disease: No - ENDOCRINE/METABOLIC Hx Endocrine Disorders: No - HEMATOLOGICAL/ONCOLOGICAL Hx Blood Disorders: Yes Hx Anemia: Yes - INTEGUMENTARY Hx Dermatological Problems: No - MUSCULOSKELETAL/RHEUMATOLOGICAL Hx Musculoskeletal Disorders: Yes Hx Arthritis: Yes - GASTROINTESTINAL Hx Gastrointestinal Disorders: Yes Hx Crohn's Disease: Yes Hx Gall Bladder Disease: Yes Hx Gastritis: Yes - GENITOURINARY/GYNECOLOGICAL Hx Genitourinary Disorders: No Hx Sexually Transmitted Disorders: No - PSYCHIATRIC Hx Anxiety: Yes Hx Depression: Yes Hx Substance Use: No - SURGICAL HISTORY Hx Cholecystectomy: Yes - ANESTHESIA Hx Anesthesia: Yes Hx Anesthesia Reactions: No Hx Malignant Hyperthermia: No Meds Allergies/Adverse Reactions: Allergies Allergy/AdvReac Type Severity Reaction Status Date / Time aspirin Allergy SHORTNESS Verified 12/02/17 01:11 OF BREATH benzethonium chloride Allergy URTICARIA Verified 12/02/17 01:11 benzocaine Allergy ITCHING Verified 12/02/17 01:11 broccoli Allergy ITCHING Verified 12/02/17 01:11 haloperidol Allergy VOMITING Verified 12/02/17 01:11 ketorolac Allergy ANAPHYLAXIS Verified 12/02/17 01:11 lidocaine Allergy ITCHING Verified 12/02/17 01:11 nitroglycerin Allergy URTICARIA Verified 12/02/17 01:11 oxycodone Allergy SHORTNESS Verified 12/02/17 01:11 OF BREATH pineapple Allergy ITCHING Verified 12/02/17 01:11 trazodone Allergy SWELLING Verified 12/02/17 01:11 ziprasidone [From Geodon] Allergy SHORTNESS Verified 12/02/17 01:11 OF BREATH steroids Allergy "heart Uncoded 12/02/17 01:11 flutters", swelling - Medications Medications: Current Medications Albuterol (Ventolin Hfa 90 Mcg/Actuation (8 G)) 2 puff IH [id number] PRN PRN Reason: Shortness of Breath Last Admin: 12/02/17 11:40 Dose: 2 inh Albuterol/Ipratropium (Duoneb 3 Mg/0.5 Mg (3 Ml) Ud) 3 ml IH [id number] PRN PRN Reason: Cough and congestion Amlodipine Besylate (Norvasc) 10 mg PO DAILY [facility] Last Admin: 12/02/17 10:07 Dose: 10 mg Diphenhydramine HCl (Benadryl) 25 mg PO Q6 PRN PRN Reason: Allergy symptoms Enoxaparin Sodium (Lovenox) 100 mg SC Q12H GENE PRN Reason: Protocol Last Admin: 12/02/17 11:39 Dose: 100 mg Hydromorphone HCl (Dilaudid) 2 mg PO QID PRN PRN Reason: Pain, severe (8-10) Last Admin: 12/02/17 12:07 Dose: 2 mg Lorazepam (Ativan) 2 mg PO BID PRN; Protocol PRN Reason: Anxiety Last Admin: 12/02/17 10:24 Dose: 2 mg Phenytoin Sodium (Dilantin) 100 mg PO QID GENE Last Admin: 12/02/17 11:28 Dose: 100 mg Physical Exam - Constitutional Appears: Well, Non-toxic, No Acute Distress - Head Exam Head Exam: ATRAUMATIC, NORMOCEPHALIC - Eye Exam Eye Exam: EOMI, PERRL. absent: Scleral icterus - ENT Exam ENT Exam: Mucous Membranes Moist - Respiratory Exam Respiratory Exam: Clear to Auscultation Bilateral, NORMAL BREATHING PATTERN. absent: Rales, Rhonchi, Wheezes - Cardiovascular Exam Cardiovascular Exam: RRR, +S1, +S2 - GI/Abdominal Exam GI & Abdominal Exam: Normal Bowel Sounds, Soft, Tenderness (RLQ/LLQ) - Back Exam Back exam: tenderness. absent: CVA tenderness (L), CVA tenderness (R) - Neurological Exam Neurological exam: Alert, CN II-XII Intact - Psychiatric Exam Psychiatric exam: Normal Affect, Normal Mood Additional comments: Denies suicidal ideation Denies feelings of depression - Skin Skin Exam: Dry, Intact, Normal Color, Warm Results - Vital Signs Recent Vital Signs: Last Vital Signs Temp 97.2 F L 12/02/17 07:19 Pulse 73 12/02/17 07:19 Resp 20 12/02/17 07:19 BP 124/57 L 12/02/17 10:07 Pulse Ox 99 12/01/17 21:50 - Labs Result Diagrams: 12/01/17 19:35 12/01/17 19:35 Labs: Laboratory Results - last 24 hr 12/02/17 12/02/17 12:20 12:20 Fasting Glucose 109 Troponin I < 0.01 Triglycerides 90 Cholesterol 254 H LDL Cholesterol Direct 103 HDL Cholesterol 81 H TSH 3rd Generation 0.52 Assessment & Plan - Assessment and Plan (Free Text) Assessment: 62F w/ PMH HTN, DVT, epilepsy, anxiety, depression, stroke, colon cancer s/p colectomy, and bronchitis admitted to [facility] behavioral health for suicidal ideation. Medicine was consulted because patient was complaining of chest pain. PLAN: Chest Pain ACS vs PE vs COPD/Asthma Troponins x1 negative; Continue trending trops Q6H EKG wnl Echo pending CTA chest pending Duonebs Q6H PRN Lipid Panel A1C Hx DVT Lovenox 100 Q12 BL LE Venous Duplex pending Hx Epilepsy Dilantin 100mg QD Hx HTN Norvasc 10 QD Anxiety Ativan 2mg QD Stroke No need for ASA81 QD as patient is on therapeutic lovenox Continue monitoring blood pressures, and blood glucose Dispo: We will continue following patient at this time in order to work up patient's chest pain Patient was seen, examined, and case was discussed w/ attending physician Dr. Rhianna Jordan DO PGY1 - Internal Medicine Senior Software Architect - Pager [phone] - Date & Time Date: 12/02/17 Time: 11:45
--- NOTE | 2017-12-02 20:42 | CARD ---
APPROVED REPORT Date of service: 12/02/2017 EKG Measurement Heart [id number] <Conclusion> Normal sinus rhythm Normal ECG
--- NOTE | 2017-12-02 21:03 | CARD ---
APPROVED REPORT Date of service: 12/01/2017 EKG Measurement Heart [id number] <Conclusion> Normal sinus rhythm Cannot rule out Anterior infarct, age undetermined T wave abnormality, consider inferior ischemia Abnormal ECG
[2017-12-03] MEDS ORDERED: Pantoprazole 40 mg EC Tab PO SCH (06:00)
--- NOTE | 2017-12-03 07:38 | CP.PCM.CON ---
History of Present Illness - History of Present Illness History of Present Illness: Juvenal Jordan PGY1 - Internal Medicine Heavy Coil Winder - Hospital Progress Note Patient was seen in and examined at bedside this morning in psychiatric unit. She complains of decreased chest pain, does not complain of any shortness of breath however she is complaining of some back pain this morning reports of back pain is chronic, she also reports that the back pain is due to degenerative disc disease. 12 system review of systems is otherwise negative at this time. Past Patient History - Infectious Disease Hx of Infectious Diseases: None - Tetanus Immunizations Tetanus Immunization: Up to Date - Past Medical History & Family History Past Medical History?: Yes - Past Social History Smoking Status: Former Smoker - CARDIAC Hx Cardiac Disorders: Yes Hx Congestive Heart Failure: Yes Hx Hypertension: Yes Hx Peripheral Edema: Yes - PULMONARY Hx Respiratory Disorders: Yes Hx Asthma: Yes Hx Bronchitis: Yes Hx Pulmonary Embolism: Yes - NEUROLOGICAL Hx Neurological Disorder: Yes Hx Migraine: Yes Hx Seizures: Yes - HEENT Hx HEENT Problems: No - RENAL Hx Chronic Kidney Disease: No - ENDOCRINE/METABOLIC Hx Endocrine Disorders: No - HEMATOLOGICAL/ONCOLOGICAL Hx Blood Disorders: Yes Hx Anemia: Yes - INTEGUMENTARY Hx Dermatological Problems: No - MUSCULOSKELETAL/RHEUMATOLOGICAL Hx Musculoskeletal Disorders: Yes Hx Arthritis: Yes - GASTROINTESTINAL Hx Gastrointestinal Disorders: Yes Hx Crohn's Disease: Yes Hx Gall Bladder Disease: Yes Hx Gastritis: Yes - GENITOURINARY/GYNECOLOGICAL Hx Genitourinary Disorders: No Hx Sexually Transmitted Disorders: No - PSYCHIATRIC Hx Anxiety: Yes Hx Depression: Yes Hx Substance Use: No - SURGICAL HISTORY Hx Cholecystectomy: Yes - ANESTHESIA Hx Anesthesia: Yes Hx Anesthesia Reactions: No Hx Malignant Hyperthermia: No Meds Allergies/Adverse Reactions: Allergies Allergy/AdvReac Type Severity Reaction Status Date / Time aspirin Allergy SHORTNESS Verified 12/02/17 01:11 OF BREATH benzethonium chloride Allergy URTICARIA Verified 12/02/17 01:11 benzocaine Allergy ITCHING Verified 12/02/17 01:11 broccoli Allergy ITCHING Verified 12/02/17 01:11 haloperidol Allergy VOMITING Verified 12/02/17 01:11 ketorolac Allergy ANAPHYLAXIS Verified 12/02/17 01:11 lidocaine Allergy ITCHING Verified 12/02/17 01:11 nitroglycerin Allergy URTICARIA Verified 12/02/17 01:11 oxycodone Allergy SHORTNESS Verified 12/02/17 01:11 OF BREATH pineapple Allergy ITCHING Verified 12/02/17 01:11 trazodone Allergy SWELLING Verified 12/02/17 01:11 ziprasidone [From Geodon] Allergy SHORTNESS Verified 12/02/17 01:11 OF BREATH steroids Allergy "heart Uncoded 12/02/17 01:11 flutters", swelling - Medications Medications: Current Medications Albuterol (Ventolin Hfa 90 Mcg/Actuation (8 G)) 2 puff IH [id number] PRN PRN Reason: Shortness of Breath Last Admin: 12/02/17 11:40 Dose: 2 inh Albuterol/Ipratropium (Duoneb 3 Mg/0.5 Mg (3 Ml) Ud) 3 ml IH [id number] PRN PRN Reason: Cough and congestion Amlodipine Besylate (Norvasc) 10 mg PO DAILY [facility] Last Admin: 12/02/17 10:07 Dose: 10 mg Diphenhydramine HCl (Benadryl) 25 mg PO Q6 PRN PRN Reason: Allergy symptoms Enoxaparin Sodium (Lovenox) 100 mg SC Q12H GENE PRN Reason: Protocol Last Admin: 12/02/17 22:20 Dose: 100 mg Hydromorphone HCl (Dilaudid) 2 mg PO QID PRN PRN Reason: Pain, severe (8-10) Last Admin: 12/02/17 23:32 Dose: 2 mg Lorazepam (Ativan) 2 mg PO BID PRN; Protocol PRN Reason: Anxiety Last Admin: 12/02/17 22:15 Dose: 2 mg Pantoprazole Sodium (Protonix Ec Tab) 40 mg PO 0600 GENE Phenytoin Sodium (Dilantin) 100 mg PO QID GENE Last Admin: 12/02/17 23:14 Dose: 100 mg Results - Vital Signs Recent Vital Signs: Last Vital Signs Temp 97.2 F L 12/02/17 07:19 Pulse 75 12/02/17 21:39 Resp 16 12/02/17 21:39 BP 132/77 12/02/17 21:39 Pulse Ox 99 12/02/17 21:39 - Labs Result Diagrams: 12/01/17 19:35 12/01/17 19:35 Labs: Laboratory Results - last 24 hr 12/02/17 12/02/17 12/02/17 12:20 12:20 12:20 Fasting Glucose 109 Troponin I < 0.01 Triglycerides 90 Cholesterol 254 H LDL Cholesterol Direct 103 HDL Cholesterol 81 H TSH 3rd Generation 0.52 RPR Nonreactive 12/03/17 00:40 Fasting Glucose Troponin I < 0.01 Triglycerides Cholesterol LDL Cholesterol Direct HDL Cholesterol TSH 3rd Generation RPR
--- NOTE | 2017-12-03 08:27 | CP.PCM.PN ---
Subjective - Date & Time of Evaluation Date of Evaluation: 12/03/17 Time of Evaluation: 08:27 - Subjective Subjective: Juvenal Jordan PGY1 - Internal Medicine Janitor - Hospital Progress Note Patient was seen in and examined at bedside this morning in psychiatric unit. She complains of decreased chest pain, does not complain of any shortness of breath however she is complaining of some back pain this morning reports of back pain is chronic, she also reports that the back pain is due to degenerative disc disease. 12 system ROS is otherwise negative at this time. Objective - Vital Signs/Intake and Output Vital Signs (last 24 hours): Temp Pulse Resp BP Pulse Ox 97.2 F L 75 16 132/77 99 12/02/17 07:19 12/02/17 21:39 12/02/17 21:39 12/02/17 21:39 12/02/17 21:39 - Medications Medications: Current Medications Albuterol (Ventolin Hfa 90 Mcg/Actuation (8 G)) 2 puff IH [id number] PRN PRN Reason: Shortness of Breath Last Admin: 12/02/17 11:40 Dose: 2 inh Albuterol/Ipratropium (Duoneb 3 Mg/0.5 Mg (3 Ml) Ud) 3 ml IH [id number] PRN PRN Reason: Cough and congestion Amlodipine Besylate (Norvasc) 10 mg PO DAILY [facility] Last Admin: 12/02/17 10:07 Dose: 10 mg Diphenhydramine HCl (Benadryl) 25 mg PO Q6 PRN PRN Reason: Allergy symptoms Enoxaparin Sodium (Lovenox) 100 mg SC Q12H GENE PRN Reason: Protocol Last Admin: 12/02/17 22:20 Dose: 100 mg Hydromorphone HCl (Dilaudid) 2 mg PO QID PRN PRN Reason: Pain, severe (8-10) Last Admin: 12/02/17 23:32 Dose: 2 mg Lorazepam (Ativan) 2 mg PO BID PRN; Protocol PRN Reason: Anxiety Last Admin: 12/02/17 22:15 Dose: 2 mg Pantoprazole Sodium (Protonix Ec Tab) 40 mg PO 0600 GENE Phenytoin Sodium (Dilantin) 100 mg PO QID [facility] Last Admin: 12/02/17 23:14 Dose: 100 mg - Labs Labs: Physical Exam - Constitutional Appears: Well, Non-toxic, No Acute Distress - Head Exam Head Exam: ATRAUMATIC, NORMOCEPHALIC - Eye Exam Eye Exam: EOMI, PERRL. absent: Scleral icterus - ENT Exam ENT Exam: Mucous Membranes Moist - Respiratory Exam Respiratory Exam: Clear to Auscultation Bilateral, NORMAL BREATHING PATTERN. absent: Rales, Rhonchi, Wheezes - Cardiovascular Exam Cardiovascular Exam: RRR, +S1, +S2 - GI/Abdominal Exam GI & Abdominal Exam: Normal Bowel Sounds, Soft, Tenderness (RLQ/LLQ) - Back Exam Back exam: tenderness. absent: CVA tenderness (L), CVA tenderness (R) - Neurological Exam Neurological exam: Alert, CN II-XII Intact - Psychiatric Exam Psychiatric exam: Normal Affect, Normal Mood Additional comments: Denies suicidal ideation Denies feelings of depression - Skin Skin Exam: Dry, Intact, Normal Color, Warm Assessment and Plan - Assessment and Plan (Free Text) Assessment: 62F w/ PMH HTN, DVT, epilepsy, anxiety, depression, stroke, colon cancer s/p colectomy, and bronchitis admitted to [facility] behavioral health for suicidal ideation. Medicine was consulted because patient was complaining of chest pain. PLAN: Chest Pain ACS vs PE vs COPD/Asthma Troponins negative EKG wnl Echo pending Pt. has contrast allergy; unable to perform CTA chest; will follow up w/ VQ scan Duonebs Q6H PRN Lipid Panel - Total cholesterol elevated; HDL elevated Started Lipitor 10mg HS Hx DVT Lovenox 100 Q12 BL LE Venous Duplex negative Hx Epilepsy Dilantin 100mg QID Hx HTN Norvasc 10 QD Anxiety Ativan 2mg QD Stroke No need for ASA81 QD as patient is on therapeutic lovenox Continue monitoring blood pressures, and blood glucose Dispo: We will continue following patient at this time in order to work up patient's chest pain Patient was seen, examined, and case was discussed w/ attending physician Dr. Rhianna Jordan DO PGY1 - Internal Medicine Janitor - Pager [phone]
--- NOTE | 2017-12-03 08:56 | PCM.PYCHPN ---
Psychiatric Progress Note - Psychiatric Progress Note Patient seen today, length of contact: 30min Patient Chief Complaint: "F...K, just kill me, this is not the way I am taking my medications, I don't want to take anything" Problems Identified/Issues Discussed: treatment plan, suicide/homicide prevention, risk/benefits and alternatives of meds. Medical Problems: multiple medical issues. see medical team notes for more detailed information Diagnostic Results: 12/01/17 19:35 12/01/17 19:35 Lab Results 12/03/17 00:40: Troponin I < 0.01 12/02/17 12:20: Fasting Glucose 109, Troponin I < 0.01, Triglycerides 90, Cholesterol 254 H, LDL Cholesterol Direct 103, HDL Cholesterol 81 H 12/02/17 12:20: RPR Nonreactive 12/02/17 12:20: TSH 3rd Generation 0.52 12/01/17 19:35: Alcohol, Quantitative < 10 12/01/17 19:35: Salicylates < 1 L, Acetaminophen < 10.0 L 12/01/17 19:35: Urine Opiates Screen Negative, Urine Methadone Screen Negative, Ur Barbiturates Screen Negative, Ur Phencyclidine Scrn Negative, Ur Amphetamines Screen Negative, U Benzodiazepines Scrn Negative, U Oth Cocaine Metabols Negative, U Cannabinoids Screen Negative 12/01/17 19:35: Sodium 145, Potassium 3.5 L, Chloride 108 H, Carbon Dioxide 29, Anion Gap 12, BUN 5 L, Creatinine 0.6 L, Est GFR ( Amer) > 60, Est GFR ( Non-Af Amer) > 60, Random Glucose 94, Calcium 8.7, Total Bilirubin 0.3, AST 31, ALT 30, Alkaline Phosphatase 153 H, Total Protein 7.5, Albumin 3.9, Globulin 3.7 , Albumin/Globulin Ratio 1.1 12/01/17 19:35: Urine Color Light yellow, Urine Appearance Clear, Urine pH 7.0, Ur Specific [place] 1.010, Urine Protein Negative, Urine Glucose (UA) Negative, Urine Ketones Negative, Urine Blood Trace-intact H, Urine Nitrate Negative, Urine Bilirubin Negative, Urine Urobilinogen 0.2, Ur Leukocyte Esterase Trace H , Urine RBC 0 - 2, Urine WBC 0 - 2, Ur Epithelial Cells 0 - 2, Urine Bacteria Few 12/01/17 19:35: WBC 4.8, RBC 3.93, Hgb 12.5, Hct 37.8, MCV 96.2, MCH 31.8, MCHC 33.1, RDW 13.6, Plt Count 168, MPV 10.3, Gran % 56.1, Lymph % (Auto) 34.4, [place] % (Auto) 8.5 H, Eos % (Auto) 0.8 L, Baso % (Auto) 0.2, Gran # 2.69, Lymph # ( Auto) 1.7, [place] # (Auto) 0.4, Eos # (Auto) 0.0, Baso # (Auto) 0.01 Vital Signs Temp Pulse Resp BP Pulse Ox 12/02/17 21:39 75 16 132/77 99 12/02/17 20:28 90 147/92 H 12/02/17 18:42 90 147/92 H 12/02/17 17:00 91 H 180/96 H 12/02/17 10:07 124/57 L 12/02/17 07:19 97.2 F L 73 20 124/57 L 12/01/17 21:50 98.3 F 79 18 138/74 99 12/01/17 21:40 97.8 F 80 18 124/81 99 12/01/17 19:15 72 17 118/62 99 12/01/17 17:19 98.5 F 92 H 16 146/85 99 LE USG was done EKG WNL medical consult appreciated DSM 5 Symptoms Update: shortly patient is 70 year old -[place] female, self reported history of depression, anxiety, history of [facility] psych hospitalization in 2016 pt was d/c AGAINST MEDICAL ADVICE, prior to that [facility] [place] [place] psych unit, patient lost her apartment, currently staying in boarding home, patient also has a lot of medical issues including asthma, pt also on Lovenox, pt also has h/o pesudoseizured, 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 patient was seen and examined today next to the nursing station. pt is screaming, yelling, cursing, "f..k you, this is not the way I am taking my medications, just kill me". pt then was refusing to step away from the entrance door, nurse rajwinderer talked to the pt, pt was cursing, meds were offered, pt refused, cursed, walked to her room. over night pt slept through, pt had episodes of agitation, disrespectful behavior, but no aggression. yesterday pt was complaining with shortness of breath because of her asthma, medical team was called, patient was seen by Dr. Jordan, discussed with Dr. Jordan in details, medical team evaluated pt twice, see notes. SW called pt's daughter, Cindy Abreu([phone]), she is willing to accept pt till December 12. see SW note for more detailed info. so far pt remains to be unpredictable, impulses are poor controlled, high risk of impulsive behavior. meds were confirmed by the pharmacy, hydromorphone was d/c by medical team, dilaudid was started, pt does not like this change. . h/o blood clots, pt is on lovenox. pt tolerated meds well, no side effects observed or reported, AIMS 0, no EPS. Impression: r/o MDD r/o adjustment disorder mood disorder due to [facility] addiction to benzos Medication Change: No Medical Record Reviewed: Yes Consults ordered or reviewed: medical consult appreciated see notes for more detailed information Mental Status Examination - Cognitive Function Orientation: Person Memory: Intact Attention: Poor Concentration: Poor Association: WNL Fund of Knowledge: WNL - Mood Mood: Depressed ("f...k you, kill me"), Anxious - Affect Affect: Other (angry, agitated) - Speech Speech: Loud - Formal Thought Process Formal Thought Process: No Impairment - Suicidal Ideation Suicidal Ideation: Yes Plan: passive wish to be - Homicidal Ideation Homicidal Ideation: No Goal/Treatment Plan - Goal/Treatment Plan Need for Continued Stay: Remain at risks for inpatient hospitalization, Severe depression anxiety, Discharge may exacerbated symptoms, Failed transitioning Progress Toward Problem(s) and Goals/Treatment Plan: Milieu/structure/supportive therapy Medical consult appreciated, see medical team note for more detailed info SW consultation for discharge plan and social issues Med management all meds confirmed and resumed Enoxaparin [Lovenox] 80 mg SC BID Albuterol HFA [Ventolin HFA 90 mcg/actuation (8 g)] 2 puff IH [id number] LORazepam [Ativan] 2 mg PO BID anxiety Phenytoin, Extended [Dilantin [place]] 100 mg PO QID for seizure dilaudid as per medical team Family involvement, collaterals from pt's daughters,pt gave written consent, please see SW note for more detailed info Follow up on labs Will monitor closely Pt was educated about risk/benefits and alternatives of medications, coping strategies (safety plan, suicide prevention), relapse prevention, importance of follow up with psychiatrist and therapist, stay away from drugs/alcohol/smoking pt submitted 48 hr notice, will monitor closely will call to [facility] [place] [place] for screening. Estimated Date of D/C: 12/08/17
[2017-12-03] MEDS: Enoxaparin 100 mg Syringe SC SCH (09:52)
[2017-12-03 10:13] VITALS: RESP 20; TEMP 98.5
--- NOTE | 2017-12-03 17:23 | US ---
HISTORY: Leg pain and swelling. Evaluate for DVT PHYSICIAN(S): Bc Watters MD. TECHNIQUE: Duplex sonography and color-flow Doppler with graded compression were used to evaluate the deep venous systems of both lower extremities. The exam is limited by body habitus and edema P FINDINGS: The visualized deep venous systems of both lower extremities are sonographically normal and compressible. Normal wave forms and augmentation are seen. There is no sonographic evidence for deep venous thrombosis in the visualized segments of both lower extremities. There is a 1.0 x 3.4 cm complex fluid collection left popliteal fossa, consistent with a Ramon's cyst. IMPRESSION: No sonographic evidence for deep venous thrombosis in the visualized segments of both lower extremities.
[2017-12-03 18:37] VITALS: BP 125/74; PULSE 75
--- NOTE | 2017-12-04 18:36 | PCM.PYCHDC ---
Mental Status Examination - Mental Status Examination Orientation: Person, Place, Situation, Time Memory: Intact Mood: Depressed Affect: Flat Speech: Appropriate (Time sloughed) Attention: WNL Concentration: WNL Association: WNL Fund of Knowledge: WNL Formal Thought Process: No Impairment Description of patient's judgement and insight: Limited but improved Psychotic Thoughts and Behaviors: Pt denied v/a/t hallucinations, denied paranoid ideations, pt does not appear to be psychotic, and thought process is goal directed. Suicidal Ideation: No Current Homicidal Ideation?: No Plan: pt adamantly denied thoughts of harming self or others denied intent or plan. Discharge Summary - Discharge Note Reason for Hospitalization: Patient was admitted to the psychiatric inpatient unit for evaluation and stabilization of depressive symptoms, possible suicidal ideation. Psychiatric History (includes Medical, Family, Personal Hx): see HPI Laboratory Data: 12/01/17 19:35 12/01/17 19:35 Lab Results 12/03/17 00:40: Troponin I < 0.01 12/02/17 12:20: Fasting Glucose 109, Troponin I < 0.01, Triglycerides 90, Cholesterol 254 H, LDL Cholesterol Direct 103, HDL Cholesterol 81 H 12/02/17 12:20: RPR Nonreactive 12/02/17 12:20: TSH 3rd Generation 0.52 12/01/17 19:35: Alcohol, Quantitative < 10 12/01/17 19:35: Salicylates < 1 L, Acetaminophen < 10.0 L 12/01/17 19:35: Urine Opiates Screen Negative, Urine Methadone Screen Negative, Ur Barbiturates Screen Negative, Ur Phencyclidine Scrn Negative, Ur Amphetamines Screen Negative, U Benzodiazepines Scrn Negative, U Oth Cocaine Metabols Negative, U Cannabinoids Screen Negative 12/01/17 19:35: Sodium 145, Potassium 3.5 L, Chloride 108 H, Carbon Dioxide 29, Anion Gap 12, BUN 5 L, Creatinine 0.6 L, Est GFR ( Amer) > 60, Est GFR ( Non-Af Amer) > 60, Random Glucose 94, Calcium 8.7, Total Bilirubin 0.3, AST 31, ALT 30, Alkaline Phosphatase 153 H, Total Protein 7.5, Albumin 3.9, Globulin 3.7 , Albumin/Globulin Ratio 1.1 12/01/17 19:35: Urine Color Light yellow, Urine Appearance Clear, Urine pH 7.0, Ur Specific [place] 1.010, Urine Protein Negative, Urine Glucose (UA) Negative, Urine Ketones Negative, Urine Blood Trace-intact H, Urine Nitrate Negative, Urine Bilirubin Negative, Urine Urobilinogen 0.2, Ur Leukocyte Esterase Trace H , Urine RBC 0 - 2, Urine WBC 0 - 2, Ur Epithelial Cells 0 - 2, Urine Bacteria Few 12/01/17 19:35: WBC 4.8, RBC 3.93, Hgb 12.5, Hct 37.8, MCV 96.2, MCH 31.8, MCHC 33.1, RDW 13.6, Plt Count 168, MPV 10.3, Gran % 56.1, Lymph % (Auto) 34.4, Angelina % (Auto) 8.5 H, Eos % (Auto) 0.8 L, Baso % (Auto) 0.2, Gran # 2.69, Lymph # ( Auto) 1.7, Angelina # (Auto) 0.4, Eos # (Auto) 0.0, Baso # (Auto) 0.01 Vital Signs Temp Pulse Resp BP Pulse Ox 12/03/17 16:00 75 125/74 12/03/17 10:00 98.5 F 76 20 135/75 12/03/17 09:52 135/75 12/02/17 21:39 75 16 132/77 99 12/02/17 20:28 90 147/92 H 12/02/17 18:42 90 147/92 H 12/02/17 17:00 91 H 180/96 H 12/02/17 10:07 124/57 L 12/02/17 07:19 97.2 F L 73 20 124/57 L 12/01/17 21:50 98.3 F 79 18 138/74 99 12/01/17 21:40 97.8 F 80 18 124/81 99 12/01/17 19:15 72 17 118/62 99 12/01/17 17:19 98.5 F 92 H 16 146/85 99 Consultations:: List each consultation separately and include: 1. Reason for request. 2. Findings. 3. Follow-up Consultations: medical consult appreciated see notes for more detailed information patient was medically cleared Summary of Hospital Course include:: 1. Description of specific treatment plan utilized for patients during their course of treatmen. 2. Summarize the time- course for resolution of acute symptoms and/or regressed behaviors. 3. Describe issues identified and worked on during hospitalization. 4. Describe medication utilized. 5. Describe medical problems identified and treated. 6. Reassessment of suicide risk Summary of Hospital Course: shortly patient is 70 year old -Citizen Of [place] female, self reported history of depression, anxiety, history of [facility] psych hospitalization in 2016 pt was d/c AGAINST MEDICAL ADVICE, prior to that [facility] psych unit, patient lost her apartment, currently staying in boarding home, patient also has a lot of medical issues including asthma, pt also on Lovenox, pt also has h/o pesudoseizured, addiction to the benzos, multiple ED visits, pt was sent by [facility] for evaluation of SI pt expressed thoughts of harming self during the intake, pt also verbalized thoughts of harming self to the cousin who brought pt to the hospital for further evaluation. patient was seen and examined initially in her room, patient reported that she feels shortness of breath because of her asthma, medical team was called, patient was seen by Dr. Jordan, discussed with Dr. Jordan in details, medical team will order some tests for the pt. patient was able to handle the interview, vital signs are stable, personal hygiene was fair,, ADLs are good. Patient reported that she lost her apartment where she lives for past 12 years, patient reports that she was stressed out about staying in boarding home because "it is very hot in their", patient reported that by the end of the month she will have her own room, patient also reported that in January as per director of casework she will have rooming housing then. He shouldn't was annoyed with all of the questions, patient said "I never said that I'm suicidal", it is very doubtful because to resources patient cousin as well as [facility] confirmed that patient was verbalizing thoughts of killing herself. Patient reported that she was feeling depressed, hopeless, helpless, but denied any thoughts of killing herself or others. Patient denied that she is hearing voices, denied seeing things, denied paranoid ideations, patient presented to be guarded but not acutely psychotic. Patient reports that she suffered from anxiety patient reports that she has panic attacks, at the same time "it is hard to differentiate is at my asthma or anxiety". Patient contracted for safely. Presently patient denies depression or discomfort. She is in fair control and there were no behavioral issues overnight. as per previous admission SOCIAL Born and raised in [place]. Patient is single never . Patient reports that she has eight grown children. Patient resides by herself. She is unemployed and disabled. She denies any history of legal issues. Patient denies having any drug or alcohol issues however upon further questioning patient admitted to she required detox at [facility] for Ativan use in 2014. Prior records indicate that patient has a history of benzodiazepines and opiates dependency with repeated presentations to our ER seeking medication. Patient has been consulted by me on multiple occasions. In the past, patient required multiple 1 day refills of an Ativan taper to ensure patient did not take more than prescribed. PSYCHIATRIC HISTORY Patient reports one prior hospitalization at [facility] 2015, Patient did not follow up with aftercare referrals and does not currently see an outpatient psychiatrist. She denies any history of suicide attempts. meds were confirmed by the pharmacy. pt was seen by medical team for asthma, chest tightness, h/o blood clots, pt is on lovenox. Family h/o: denied 12/01/17 19:35 12/01/17 19:35 Lab Results 12/02/17 12:20: Fasting Glucose 109, Troponin I < 0.01, Triglycerides 90, Cholesterol 254 H, LDL Cholesterol Direct 103, HDL Cholesterol 81 H 12/02/17 12:20: TSH 3rd Generation 0.52 12/01/17 19:35: Alcohol, Quantitative < 10 12/01/17 19:35: Salicylates < 1 L, Acetaminophen < 10.0 L 12/01/17 19:35: Urine Opiates Screen Negative, Urine Methadone Screen Negative, Ur Barbiturates Screen Negative, Ur Phencyclidine Scrn Negative, Ur Amphetamines Screen Negative, U Benzodiazepines Scrn Negative, U Oth Cocaine Metabols Negative, U Cannabinoids Screen Negative 12/01/17 19:35: Sodium 145, Potassium 3.5 L, Chloride 108 H, Carbon Dioxide 29, Anion Gap 12, BUN 5 L, Creatinine 0.6 L, Est GFR ( Amer) > 60, Est GFR ( Non-Af Amer) > 60, Random Glucose 94, Calcium 8.7, Total Bilirubin 0.3, AST 31, ALT 30, Alkaline Phosphatase 153 H, Total Protein 7.5, Albumin 3.9, Globulin 3.7 , Albumin/Globulin Ratio 1.1 12/01/17 19:35: Urine Color Light yellow, Urine Appearance Clear, Urine pH 7.0, Ur Specific [place] 1.010, Urine Protein Negative, Urine Glucose (UA) Negative, Urine Ketones Negative, Urine Blood Trace-intact H, Urine Nitrate Negative, Urine Bilirubin Negative, Urine Urobilinogen 0.2, Ur Leukocyte Esterase Trace H , Urine RBC 0 - 2, Urine WBC 0 - 2, Ur Epithelial Cells 0 - 2, Urine Bacteria Few 12/01/17 19:35: WBC 4.8, RBC 3.93, Hgb 12.5, Hct 37.8, MCV 96.2, MCH 31.8, MCHC 33.1, RDW 13.6, Plt Count 168, MPV 10.3, Gran % 56.1, Lymph % (Auto) 34.4, Angelina % (Auto) 8.5 H, Eos % (Auto) 0.8 L, Baso % (Auto) 0.2, Gran # 2.69, Lymph # ( Auto) 1.7, Angelina # (Auto) 0.4, Eos # (Auto) 0.0, Baso # (Auto) 0.01 Vital Signs Temp Pulse Resp BP Pulse Ox 12/02/17 10:07 124/57 L 12/02/17 07:19 97.2 F L 73 20 124/57 L 12/01/17 21:50 98.3 F 79 18 138/74 99 12/01/17 21:40 97.8 F 80 18 124/81 99 12/01/17 19:15 72 17 118/62 99 12/01/17 17:19 98.5 F 92 H 16 146/85 99 patient submitted 48 hour notice refused to stay in the hospital this credit underwriter initiated screening process for the patient patient was screened by [facility],, patient was found to be not committable, he shouldn't was discharged AGAINST MEDICAL ADVICE with no prescriptions given. This credit underwriter had no other choices then to let patient go AGAINST MEDICAL ADVICE. At the time of discharge patient adamantly denied thoughts of harming herself or others, denied psychotic symptoms, patient daughter is willing to accept patient, please see social media manager notes for more detailed information. Enoxaparin [Lovenox] 80 mg SC BID Albuterol HFA [Ventolin HFA 90 mcg/actuation (8 g)] 2 puff IH [id number] LORazepam [Ativan] 2 mg PO BID anxiety Phenytoin, Extended [Dilantin Kapseals] 100 mg PO QID for seizure dilaudid as per medical team No side effects from medications observed or reported, aims 0, no EPS pt is not in imminent danger to self or others, will be following up with psychiatrist of her choice, patient has capacity to do so, iit is patient responsibility to follow up with outpatient clinic, PMD as well as specialists ( see note for more detailed information). In case pt will need to obtain results of studies pending at discharge pt was provided with contact information of Psychiatric Inpatient unit [phone] as well as Medical Record Department [phone]. Pt was educated about safety plan in case of worsening of symptoms or in case of suicidal or homicidal ideation call 911 or go to the nearest ER, also was educated to take meds as prescribed and stay away from drugs, pt verbalized understanding. - Diagnosis (1) Adjustment disorder Status: Acute Priority: Medium - Final Diagnosis (DSM 5) Condition upon Discharge: STABLE Disposition: AGAINST MEDICAL ADVICE Follow-up Treatment Plan: At the time of the discharge pt denied been depressed, denied thoughts of harming self or others, denied psychotic symptoms, and pt does not appeared to be psychotic, denied been anxious, pt is not in imminent danger to self or others, will be following up at ., information about follow up appointment, time and address provided to the pt, it is patient responsibility to follow up with outpatient clinic, PMD as well as specialists (see note for more detailed information). In case pt will need to obtain results of studies pending at discharge pt was provided with contact information of Psychiatric Inpatient unit [phone] as well as Medical Record Department [phone]. Nicotine patch was offered Naltrexone treatment Counseling about smoking and alcohol cessation provided AA meetings as well as smoking cessation treatment program information was provided by the pt was provided with prescriptions for all of medications (please see medication reconciliation form) Pt was educated about safety plan in case of worsening of symptoms or in case of suicidal or homicidal ideation call 911 or go to the nearest ER, also was educated to take meds as prescribed and stay away from drugs, pt verbalized understanding. - Smoking Cessation Smoking Cessation Medication prescribed: No Reason for not providing: ddenied smoking - Antipsychotic Medications Pt discharged on 2 or more routine antipsychotic medications: No
== END 2017-12-03 17:30 | disposition left against medical advice (07) | DRG 427 ==
LOC: ED 17:08 → ERH 20:20 → PSYC 21:47
PROVIDERS: ADMIT Psychiatry & Neurology Psychiatry; ATTEND Psychiatry & Neurology Psychiatry
DX: F43.20 Adjustment disorder, unspecified (principal); I11.0 Hypertensive heart disease with heart failure; I50.9 Heart failure, unspecified; F32.89 Other specified depressive episodes; F41.0 Panic disorder [episodic paroxysmal anxiety]; G40.909 Epilepsy, unspecified, not intractable, without status epilepticus; G89.29 Other chronic pain; J40 Bronchitis, not specified as acute or chronic; J45.909 Unspecified asthma, uncomplicated; K50.90 Crohn's disease, unspecified, without complications; R45.851 Suicidal ideations; Z85.038 Personal history of other malignant neoplasm of large intestine; Z86.711 Personal history of pulmonary embolism; Z86.73 Personal history of transient ischemic attack (TIA), and cerebral infarction without residual deficits; Z87.11 Personal history of peptic ulcer disease; Z87.891 Personal history of nicotine dependence; Z90.49 Acquired absence of other specified parts of digestive tract; Z90.710 Acquired absence of both cervix and uterus; M51.36 Other intervertebral disc degeneration, lumbar region

== ENCOUNTER 2017-12-07 21:39 | Emergency (ER) | payer MEDICAID, OTHER ==
[2017-12-07 21:39] VITALS: BMI 38.4
[2017-12-07 21:48] VITALS: PULSE 71; RESP 19
--- NOTE | 2017-12-07 22:06 | ED PDOC ---
Arrival/HPI - General Chief Complaint: Chest Pain Time Seen by Provider: 12/07/17 21:43 Historian: Patient - History of Present Illness Narrative History of Present Illness (Text): 12/07/17 22:03 Justina Abreu is a 62 year old female, whose past medical history includes COPD, asthma, anemia, DVT on lovenox, PE, anxiety and seizures, who presents to the emergency department brought in by EMS complaining of anxiet tonight. Patient states she was recently evicted from apartment, which has worsened her anxiety and is requesting 1 dose of Ativan. Patient denies any fever, chills, chest pain, shortness of breath, nausea, vomiting, diarrhea, urinary symptoms, back pain, neck pain, headache, dizziness, or any other complaints. Symptom Onset: Gradual Symptom Course: Unchanged Activities at Onset: Light Context: Street Past Medical History - Provider Review Nursing Documentation Reviewed: Yes - Infectious Disease Hx of Infectious Diseases: None - Tetanus Immunization Tetanus Immunization: Up to Date - Past Medical History Past Medical History: Non-Contributing - Cardiac Hx Cardiac Disorders: Yes Hx Congestive Heart Failure: Yes Hx Hypertension: Yes Hx Peripheral Edema: Yes - Pulmonary Hx Respiratory Disorders: Yes Hx Asthma: Yes Hx Bronchitis: Yes Hx Pulmonary Embolism: Yes - Neurological Hx Neurological Disorder: Yes Hx Migraine: Yes Hx Seizures: Yes - HEENT Hx HEENT Disorder: No - Renal Hx Renal Disorder: No - Endocrine/Metabolic Hx Endocrine Disorders: No - Hematological/Oncological Hx Blood Disorders: Yes Hx Anemia: Yes - Integumentary Hx Dermatological Disorder: No - Musculoskeletal/Rheumatological Hx Musculoskeletal Disorders: Yes Hx Arthritis: Yes - Gastrointestinal Hx Gastrointestinal Disorders: Yes Hx Crohn's Disease: Yes Hx Gall Bladder Disease: Yes Hx Gastritis: Yes - Genitourinary/Gynecological Hx Genitourinary Disorders: No Hx Sexually Transmitted Diseases: No - Psychiatric Hx Anxiety: Yes Hx Depression: Yes Hx Substance Use: No - Past Surgical History Past Surgical History: Non-Contributing - Surgical History Hx Cholecystectomy: Yes - Anesthesia Hx Anesthesia: Yes Hx Anesthesia Reactions: No Hx Malignant Hyperthermia: No - Suicidal Assessment Feels Threatened In Home Enviroment: No Family/Social History - Physician Review Nursing Documentation Reviewed: Yes Family/Social History: Unknown Family HX Smoking Status: Former Smoker Hx Alcohol Use: No Hx Substance Use: No Substance used: RX MEDICATION Hx Substance Use Treatment: No Allergies/Home Meds Allergies/Adverse Reactions: Allergies aspirin Allergy (Verified 12/02/17 01:11) SHORTNESS OF BREATH benzethonium chloride Allergy (Verified 12/07/17 21:48) URTICARIA benzocaine Allergy (Verified 12/07/17 21:48) ITCHING broccoli Allergy (Verified 12/07/17 21:48) ITCHING haloperidol Allergy (Verified 12/07/17 21:48) VOMITING ketorolac Allergy (Verified 12/07/17 21:48) ANAPHYLAXIS lidocaine Allergy (Verified 12/07/17 21:48) ITCHING nitroglycerin Allergy (Verified 12/07/17 21:48) URTICARIA oxycodone Allergy (Verified 12/07/17 21:48) SHORTNESS OF BREATH pineapple Allergy (Verified 12/07/17 21:48) ITCHING trazodone Allergy (Verified 12/02/17 01:11) SWELLING ziprasidone [From Geodon] Allergy (Verified 12/02/17 01:11) SHORTNESS OF BREATH steroids Allergy (Uncoded 12/02/17 01:11) "heart flutters", swelling Home Medications: Home Meds Medication Instructions Recorded Confirmed Enoxaparin [Lovenox] 80 mg SC BID 12/18/16 12/07/17 Review of Systems - Physician Review All systems were reviewed & negative as marked: Yes - Review of Systems Constitutional: Normal. absent: Fevers Eyes: Normal ENT: Normal Respiratory: Normal. absent: SOB, Cough Cardiovascular: Normal. absent: Chest Pain Gastrointestinal: Normal. absent: Abdominal Pain, Diarrhea, Vomiting Genitourinary Female: Normal. absent: Dysuria, Frequency, Hematuria, Urine Output Changes Musculoskeletal: Normal. absent: Back Pain, Neck Pain Skin: Normal Neurological: Normal Endocrine: Normal Hemo/Lymphatic: Normal Psychiatric: Anxiety Physical Exam Vital Signs Reviewed: Yes Vital Signs Temp Pulse Resp BP Pulse Ox 12/08/17 00:42 98 F 71 19 129/71 99 12/07/17 22:32 98 F 72 19 130/72 100 12/07/17 21:40 98.9 F 71 19 137/82 98 Temperature: Afebrile Blood Pressure: Normal Pulse: Regular Respiratory Rate: Normal Appearance: Positive for: Well-Appearing, Non-Toxic, Comfortable Pain Distress: None Mental Status: Positive for: Alert and Oriented X 3 - Systems Exam Head: Present: Atraumatic, Normocephalic Pupils: Present: PERRL Extroacular Muscles: Present: EOMI Conjunctiva: Present: Normal Mouth: Present: Moist Mucous Membranes Neck: Present: Normal Range of Motion Respiratory/Chest: Present: Clear to Auscultation, Good Air Exchange. No: Respiratory Distress, Accessory Muscle Use Cardiovascular: Present: Regular Rate and Rhythm, Normal S1, S2. No: Murmurs Abdomen: No: Tenderness, Distention, Peritoneal Signs Back: Present: Normal Inspection Upper Extremity: Present: Normal Inspection. No: Cyanosis, Edema Lower Extremity: Present: Normal Inspection. No: Edema Neurological: Present: GCS=15, CN II-XII Intact, Speech Normal Skin: Present: Warm, Dry, Normal Color. No: Rashes Psychiatric: Present: Alert, Oriented x 3, Normal Insight, Normal Concentration , Anxious (Anxious appearing) Medical Decision Making ED Course and Treatment: 12/07/17 22:03 Impression: 62 year old female complaining of anxiety tonight. Differential Diagnosis included but are not limited to: anxiety Plan: -- EKG -- Ativan -- Reassess and disposition Prior Visits: Notes and results from previous visits were reviewed. Progress Notes: Reviewed EKG, NSR at [address]-segment elevations or depressions, no T-wave inversions, normal intervals. 12/08/17 00:45 On re-evaluation, patient feels better and is in no acute distress. I have discussed the results and plan with the patient, who expresses understanding. Patient in agreement with plan to be discharged home. Patient is stable for discharge. Patient was instructed to follow up with physician or return if symptoms worsen or new concerning symptoms arise. - EKG Interpretation Interpreted by ED Physician: Yes Type: 12 lead EKG - Medication Orders Current Medication Orders: Discontinued Medications Lorazepam (Ativan) 2 mg IM ONCE ONE Stop: 12/07/17 22:06 Last Admin: 12/07/17 22:18 Dose: 2 mg IM Administration Charges Document 12/07/17 22:18 I (Rec: 12/07/17 22:19 [facility] [id number]) Injection Site MAR Injection Site Right Deltoid Charges for Administration # of IM Administrations 1 - Scribe Statement The provider has reviewed the documentation as recorded by the Barber Echeverria Provider Scribe Attestation: All medical record entries made by the Scribe were at my direction and personally dictated by me. I have reviewed the chart and agree that the record accurately reflects my personal performance of the history, physical exam, medical decision making, and the department course for this patient. I have also personally directed, reviewed, and agree with the discharge instructions and disposition. Disposition/Present on Arrival - Present on Arrival Any Indicators Present on Arrival: No History of DVT/PE: Yes History of Uncontrolled Diabetes: No Urinary Catheter: No History of Decub. Ulcer: No History Surgical Site Infection Following: None - Disposition Have Diagnosis and Disposition been Completed?: Yes Diagnosis: Anxiety Disposition: HOME/ ROUTINE Disposition Time: 00:47 Patient Plan: Discharge Patient Problems: Current Active Problems Problem Status Onset Anxiety Acute Condition: STABLE Discharge Instructions (ExitCare): Anxiety, Adult (DC) Additional Instructions: Continue your current meds/follow up with your doctor this week. Referrals: Jony Sy MD [Primary Care Provider] - Follow up with primary Forms: [employer] (Iranian)
[2017-12-08 03:55] VITALS: BP 129/71; TEMP 98; O2SAT 99
--- NOTE | 2017-12-08 11:19 | CARD ---
APPROVED REPORT Date of service: 12/07/2017 EKG Measurement Heart [id number] <Conclusion> Normal sinus rhythm Normal ECG
== END 2017-12-08 01:05 | disposition home or self-care (01) ==
LOC: ED 21:39
DX: F41.9 Anxiety disorder, unspecified (principal); I50.9 Heart failure, unspecified; I10 Essential (primary) hypertension; Z87.891 Personal history of nicotine dependence
CPT/HCPCS: 93005; 96372; 99284; J2060

== ENCOUNTER 2017-12-14 08:58 | Emergency (ER) | payer OTHER ==
[2017-12-14 08:59] VITALS: BMI 38.4
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
[2017-12-14 09:44] VITALS: BP 123/56; PULSE 85; RESP 19; TEMP 98
[2017-12-14 09:46] VITALS: O2SAT 100
== END 2017-12-14 09:45 | disposition home or self-care (01) ==
LOC: ED 08:58
DX: F41.9 Anxiety disorder, unspecified (principal); Z87.891 Personal history of nicotine dependence; I10 Essential (primary) hypertension; I50.9 Heart failure, unspecified

== ENCOUNTER 2017-12-14 21:37 | Emergency (ER) | payer OTHER ==
[2017-12-14 21:47] VITALS: BMI 39.9
--- NOTE | 2017-12-14 21:58 | ED PDOC ---
Arrival/HPI - General Time Seen by Provider: 12/14/17 21:41 Historian: Patient - History of Present Illness Narrative History of Present Illness (Text): 12/14/17 21:57 A 62 year old female, whose past medical history includes COPD, asthma, anemia, anxiety, DVT on lovenox, presents to the emergency department complaining of worsening chest pain and anxiety after being discharged from the ER earlier today. Patient states she receives a shot of Ativan in her arm which help the symptoms go away. Patient denies any fever, chills, shortness of breath, nausea , vomiting, diarrhea, urinary symptoms, back pain, neck pain, headache, dizziness, or any other complaints. PMD: Dr. Sy Symptom Onset: Gradual Symptom Course: Worsening Activities at Onset: Light Context: Home Past Medical History - Provider Review Nursing Documentation Reviewed: Yes - Infectious Disease Hx of Infectious Diseases: None - Tetanus Immunization Tetanus Immunization: Up to Date - Past Medical History Past Medical History: Non-Contributing - Cardiac Hx Cardiac Disorders: Yes Hx Congestive Heart Failure: Yes Hx Hypertension: Yes Hx Peripheral Edema: Yes - Pulmonary Hx Respiratory Disorders: Yes Hx Asthma: Yes Hx Bronchitis: Yes Hx Pulmonary Embolism: Yes - Neurological Hx Neurological Disorder: Yes Hx Migraine: Yes Hx Seizures: Yes - HEENT Hx HEENT Disorder: No - Renal Hx Renal Disorder: No - Endocrine/Metabolic Hx Endocrine Disorders: No - Hematological/Oncological Hx Blood Disorders: Yes Hx Anemia: Yes - Integumentary Hx Dermatological Disorder: No - Musculoskeletal/Rheumatological Hx Musculoskeletal Disorders: Yes Hx Arthritis: Yes - Gastrointestinal Hx Gastrointestinal Disorders: Yes Hx Crohn's Disease: Yes Hx Gall Bladder Disease: Yes Hx Gastritis: Yes - Genitourinary/Gynecological Hx Genitourinary Disorders: No Hx Sexually Transmitted Diseases: No - Psychiatric Hx Anxiety: Yes Hx Depression: Yes Hx Substance Use: No - Past Surgical History Past Surgical History: Non-Contributing - Surgical History Hx Cholecystectomy: Yes - Anesthesia Hx Anesthesia: Yes Hx Anesthesia Reactions: No Hx Malignant Hyperthermia: No - Suicidal Assessment Feels Threatened In Home Enviroment: No Family/Social History - Physician Review Nursing Documentation Reviewed: Yes Family/Social History: No Known Family HX Smoking Status: Former Smoker Hx Alcohol Use: No Hx Substance Use: No Substance used: RX MEDICATION Hx Substance Use Treatment: No Allergies/Home Meds Allergies/Adverse Reactions: Allergies aspirin Allergy (Verified 12/14/17 21:49) SHORTNESS OF BREATH benzethonium chloride Allergy (Verified 12/14/17 21:49) URTICARIA benzocaine Allergy (Verified 12/14/17 21:49) ITCHING broccoli Allergy (Verified 12/14/17 21:49) ITCHING haloperidol Allergy (Verified 12/14/17 21:49) VOMITING ketorolac Allergy (Verified 12/14/17 21:49) ANAPHYLAXIS lidocaine Allergy (Verified 12/14/17 21:49) ITCHING nitroglycerin Allergy (Verified 12/14/17 21:49) URTICARIA oxycodone Allergy (Verified 12/14/17 21:49) SHORTNESS OF BREATH pineapple Allergy (Verified 12/14/17 21:49) ITCHING trazodone Allergy (Verified 12/14/17 21:49) SWELLING ziprasidone [From Geodon] Allergy (Verified 12/14/17 21:49) SHORTNESS OF BREATH steroids Allergy (Uncoded 12/14/17 21:49) "heart flutters", swelling Home Medications: Home Meds Medication Instructions Recorded Confirmed Enoxaparin [Lovenox] 80 mg SC BID 12/18/16 12/14/17 Review of Systems - Physician Review All systems were reviewed & negative as marked: Yes - Review of Systems Constitutional: absent: Fevers, Other (Chills) Respiratory: absent: SOB Cardiovascular: Chest Pain Gastrointestinal: absent: Diarrhea, Nausea, Vomiting Genitourinary Female: absent: Dysuria, Frequency, Hematuria Musculoskeletal: absent: Back Pain, Neck Pain Neurological: absent: Headache, Dizziness Psychiatric: Anxiety. absent: Depression Physical Exam Vital Signs Reviewed: Yes Vital Signs Temp Pulse Resp BP Pulse Ox 12/14/17 23:00 79 17 150/87 100 12/14/17 22:04 98.3 F 84 16 156/99 H 97 Temperature: Afebrile Blood Pressure: Hypertensive Pulse: Regular Respiratory Rate: Normal Appearance: Positive for: Well-Appearing, Non-Toxic, Comfortable Pain Distress: None Mental Status: Positive for: Alert and Oriented X 3 - Systems Exam Head: Present: Atraumatic, Normocephalic Pupils: Present: PERRL Extroacular Muscles: Present: EOMI Conjunctiva: Present: Normal Mouth: Present: Moist Mucous Membranes Neck: Present: Normal Range of Motion Respiratory/Chest: Present: Clear to Auscultation, Good Air Exchange. No: Respiratory Distress, Accessory Muscle Use Cardiovascular: Present: Regular Rate and Rhythm, Normal S1, S2. No: Murmurs Abdomen: No: Tenderness, Distention, Peritoneal Signs Back: Present: Normal Inspection Upper Extremity: Present: Normal Inspection. No: Cyanosis, Edema Lower Extremity: Present: Normal Inspection. No: Edema Neurological: Present: GCS=15, CN II-XII Intact, Speech Normal Skin: Present: Warm, Dry, Normal Color. No: Rashes Psychiatric: Present: Alert, Oriented x 3, Normal Insight, Normal Concentration , Anxious Medical Decision Making ED Course and Treatment: 12/14/17 21:57 Impression: 62 year old female presents complaining of worsening chest pain and anxiety after being discharged from the ER earlier. Plan: -- EKG -- Ativan -- Reassess and disposition Prior Visits: Notes and results from previous visits were reviewed. Patient was last seen in the emergency department on 12/14/17 09:26 presents complaining of anxiety. Patient was discharged. Progress Notes: 2mg ativan IM given. 12/14/17 22:00 EKG shows NSR at 84 BPM with Normal Intervals, T-wave inversion III and AVF similar to previous EKG on 12/07/17. Interpreted by me. 12/14/17 23:00 On re-eval, patient sleeping comfortably. I have discussed the results and plan with the patient, who expresses understanding. Patient in agreement with plan to be discharged home. Patient is stable for discharge. Patient was instructed to follow up with physician or return if symptoms worsen or new concerning symptoms arise. - Medication Orders Current Medication Orders: Discontinued Medications Lorazepam (Ativan) 2 mg IM ONCE ONE PRN Reason: Protocol Stop: 12/14/17 21:56 Last Admin: 12/14/17 22:06 Dose: 2 mg IM Administration Charges Document 12/14/17 22:06 RD (Rec: 12/14/17 22:06 RD [id number]) Injection Site MAR Injection Site Left Deltoid Charges for Administration # of IM Administrations 1 - Scribe Statement The provider has reviewed the documentation as recorded by the Barber Gilmore Provider Scribe Attestation: All medical record entries made by the Mattieibcara were at my direction and personally dictated by me. I have reviewed the chart and agree that the record accurately reflects my personal performance of the history, physical exam, medical decision making, and the department course for this patient. I have also personally directed, reviewed, and agree with the discharge instructions and disposition. Disposition/Present on Arrival - Present on Arrival Any Indicators Present on Arrival: Yes History of DVT/PE: Yes History of Uncontrolled Diabetes: No Urinary Catheter: No History Surgical Site Infection Following: None - Disposition Have Diagnosis and Disposition been Completed?: Yes Diagnosis: Anxiety Disposition: HOME/ ROUTINE Disposition Time: 23:00 Condition: FAIR Discharge Instructions (ExitCare): Anxiety, Adult (DC) Additional Instructions: VERONA SAGASTUME, thank you for letting us take care of you today. Your provider was Heide Roberts MD and you were treated for ANXIETY. The emergency medical care you received today was directed at your acute symptoms. If you were prescribed any medication, please fill it and take as directed. It may take several days for your symptoms to resolve. Return to the Emergency Department if your symptoms worsen, do not improve, or if you have any other problems. Please contact your doctor or call one of the physicians/clinics you have been referred to that are listed on the Patient Visit Information form that is included in your discharge packet. Bring any paperwork you were given at discharge with you along with any medications you are taking to your follow up visit. Our treatment cannot replace ongoing medical care by a primary care provider outside of the emergency department. Thank you for allowing the [facility] team to be part of your care today. If you had an X-Ray or CT scan: A Radiologist will review the ED reading if any change in treatment is needed we will contact you. If you had a blood, urine, or wound culture: It will take several days for the results, if any change in treatment is needed we will contact you. If you had an STI test: It will take 48 hours for the results. Please call after 1 week if you have not heard back. Forms: [email or web address] (Portuguese)
[2017-12-14 22:07] VITALS: TEMP 98.3
[2017-12-14 23:01] VITALS: BP 150/87; PULSE 79; RESP 17; O2SAT 100
--- NOTE | 2017-12-15 22:10 | CARD ---
APPROVED REPORT Date of service: 12/14/2017 EKG Measurement Heart [id number] <Conclusion> Normal sinus rhythm T wave abnormality, consider inferior ischemia Abnormal ECG
== END 2017-12-14 23:00 | disposition home or self-care (01) ==
LOC: ED 21:37
DX: F41.9 Anxiety disorder, unspecified (principal); I50.9 Heart failure, unspecified; I10 Essential (primary) hypertension; Z87.891 Personal history of nicotine dependence
CPT/HCPCS: 93005; 96372; 99282; J2060

== ENCOUNTER 2017-12-15 13:15 | Emergency (ER) | payer OTHER ==
[2017-12-15 13:16] VITALS: BMI 39.9
[2017-12-15 13:25] VITALS: TEMP 98.2
[2017-12-15 13:38] VITALS: BP 134/86; PULSE 80; RESP 18; O2SAT 99
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
== END 2017-12-15 14:21 | disposition home or self-care (01) ==
LOC: ED 13:15
DX: F41.9 Anxiety disorder, unspecified (principal); I50.9 Heart failure, unspecified; I10 Essential (primary) hypertension; Z87.891 Personal history of nicotine dependence

== ENCOUNTER 2017-12-17 01:12 | Emergency (ER) | payer OTHER ==
[2017-12-17 01:13] VITALS: BMI 39.9
[2017-12-17 01:33] VITALS: BP 135/86; PULSE 87; RESP 18; TEMP 98.3; O2SAT 97
--- NOTE | 2017-12-17 02:04 | ED PDOC ---
Arrival/HPI <Hung Kellogg - Last Filed: 12/17/17 02:33> - General Historian: Patient <Karthikeyan Mata - Last Filed: 12/17/17 02:36> - General Chief Complaint: Weakness/Neurological Deficit Time Seen by Provider: 12/17/17 01:50 - History of Present Illness Narrative History of Present Illness (Text): 12/17/17 02:04 62 year old female, past medical history of COPD, asthma, anemia, anxiety, DVT on lovenox, presents to the emergency department with worsening anxiety and numbness and tingling throughout her body. She is no longer seeing Dr. Sy and will be going to a new clinic [facility] on [facility]. She takes ativan but does not have any medication left and is seeking a new primary medical doctor at this clinic. Denies fever, chills, shortness of breath, headache, dizziness, nausea, vomiting, or urinary symptoms. (Karthikeyan Mata) Past Medical History - Provider Review Nursing Documentation Reviewed: Yes - Infectious Disease Hx of Infectious Diseases: None - Tetanus Immunization Tetanus Immunization: Up to Date - Past Medical History Past Medical History: Non-Contributing - Cardiac Hx Cardiac Disorders: Yes Hx Congestive Heart Failure: Yes Hx Hypertension: Yes Hx Peripheral Edema: Yes - Pulmonary Hx Respiratory Disorders: Yes Hx Asthma: Yes Hx Bronchitis: Yes Hx Pulmonary Embolism: Yes - Neurological Hx Neurological Disorder: Yes Hx Migraine: Yes Hx Seizures: Yes - HEENT Hx HEENT Disorder: No - Renal Hx Renal Disorder: No - Endocrine/Metabolic Hx Endocrine Disorders: No - Hematological/Oncological Hx Blood Disorders: Yes Hx Anemia: Yes - Integumentary Hx Dermatological Disorder: No - Musculoskeletal/Rheumatological Hx Musculoskeletal Disorders: Yes Hx Arthritis: Yes - Gastrointestinal Hx Gastrointestinal Disorders: Yes Hx Crohn's Disease: Yes Hx Gall Bladder Disease: Yes Hx Gastritis: Yes - Genitourinary/Gynecological Hx Genitourinary Disorders: No Hx Sexually Transmitted Diseases: No - Psychiatric Hx Psychophysiologic Disorder: Yes Hx Anxiety: Yes Hx Depression: Yes Hx Panic Disorder: Yes Hx Substance Use: No - Past Surgical History Past Surgical History: Non-Contributing - Surgical History Hx Cholecystectomy: Yes - Anesthesia Hx Anesthesia: Yes Hx Anesthesia Reactions: No Hx Malignant Hyperthermia: No - Suicidal Assessment Feels Threatened In Home Enviroment: No <Karthikeyan Mata - Last Filed: 12/17/17 02:36> Family/Social History - Physician Review Nursing Documentation Reviewed: Yes Family/Social History: No Known Family HX Smoking Status: Former Smoker Hx Alcohol Use: No Hx Substance Use: No Substance used: RX MEDICATION Hx Substance Use Treatment: No <Karthikeyan Mata - Last Filed: 12/17/17 02:36> Allergies/Home Meds <Hung Kellogg - Last Filed: 12/17/17 02:33> <Ritika Matabah - Last Filed: 12/17/17 02:36> Allergies/Adverse Reactions: Allergies aspirin Allergy (Verified 12/14/17 21:49) SHORTNESS OF BREATH benzethonium chloride Allergy (Verified 12/14/17 21:49) URTICARIA benzocaine Allergy (Verified 12/14/17 21:49) ITCHING broccoli Allergy (Verified 12/14/17 21:49) ITCHING haloperidol Allergy (Verified 12/14/17 21:49) VOMITING ketorolac Allergy (Verified 12/14/17 21:49) ANAPHYLAXIS lidocaine Allergy (Verified 12/14/17 21:49) ITCHING nitroglycerin Allergy (Verified 12/14/17 21:49) URTICARIA oxycodone Allergy (Verified 12/14/17 21:49) SHORTNESS OF BREATH pineapple Allergy (Verified 12/14/17 21:49) ITCHING trazodone Allergy (Verified 12/14/17 21:49) SWELLING ziprasidone [From Geodon] Allergy (Verified 12/14/17 21:49) SHORTNESS OF BREATH steroids Allergy (Uncoded 12/14/17 21:49) "heart flutters", swelling Home Medications: Home Meds Medication Instructions Recorded Confirmed Enoxaparin [Lovenox] 80 mg SC BID 12/18/16 12/14/17 Review of Systems - Physician Review All systems were reviewed & negative as marked: Yes - Review of Systems Constitutional: absent: Fevers Respiratory: absent: SOB Cardiovascular: absent: Chest Pain, Palpitations Gastrointestinal: absent: Nausea, Vomiting Neurological: absent: Headache, Dizziness Psychiatric: Anxiety <Karthikeyan Mata - Last Filed: 12/17/17 02:36> Physical Exam Vital Signs Reviewed: Yes Blood Pressure: Normal Pulse: Regular Respiratory Rate: Normal Appearance: Positive for: Well-Appearing, Non-Toxic Pain Distress: None Mental Status: Positive for: Alert and Oriented X 3 - Systems Exam Head: Present: Atraumatic, Normocephalic Pupils: Present: PERRL Extroacular Muscles: Present: EOMI Respiratory/Chest: Present: Clear to Auscultation, Good Air Exchange. No: Respiratory Distress, Accessory Muscle Use Cardiovascular: Present: Regular Rate and Rhythm, Normal S1, S2. No: Murmurs Abdomen: No: Tenderness, Distention, Peritoneal Signs Neurological: Present: CN II-XII Intact, Speech Normal Psychiatric: Present: Alert, Oriented x 3 <Karthikeyan Mata - Last Filed: 12/17/17 02:36> Vital Signs Temp Pulse Resp BP Pulse Ox 12/17/17 01:33 98.3 F 87 18 135/86 97 Medical Decision Making <Hung Kellogg - Last Filed: 12/17/17 02:33> <Karthikeyan Mata - Last Filed: 12/17/17 02:36> ED Course and Treatment: 12/17/17 02:30 PATIENT ELOPED AT 2:10am. (Karthikeyan Mata) - Scribe Statement The provider has reviewed the documentation as recorded by the Scribe <Hung Kellogg - Last Filed: 12/17/17 02:33> <Karthikeyan Mata - Last Filed: 12/17/17 02:36> - Scribe Statement Patient Seen With Resident: In agreement with resident note which contains more details about the patient. Patient was seen and evaluated with resident. Came up with plan and treatment together. (Hung Kellogg) Disposition/Present on Arrival <Hung Kellogg - Last Filed: 12/17/17 02:33> - Present on Arrival Any Indicators Present on Arrival: No History of DVT/PE: Yes History of Uncontrolled Diabetes: No Urinary Catheter: No History of Decub. Ulcer: No History Surgical Site Infection Following: None - Disposition Have Diagnosis and Disposition been Completed?: Yes Disposition Time: 02:31 <Karthikeyan Mata - Last Filed: 12/17/17 02:36> - Disposition Diagnosis: Anxiety Disposition: ELOPEMENT - ER ONLY Condition: GOOD Referrals: Jony Sy MD [Primary Care Provider] - Follow up with primary Forms: [employer] (Greek)
== END 2017-12-17 02:10 | disposition left against medical advice (07) ==
LOC: ED 01:12
DX: F41.9 Anxiety disorder, unspecified (principal); I50.9 Heart failure, unspecified; I10 Essential (primary) hypertension; Z87.891 Personal history of nicotine dependence; J44.9 Chronic obstructive pulmonary disease, unspecified

== ENCOUNTER 2017-12-24 10:21 | Emergency (ER) | payer MEDICAID, OTHER ==
[2017-12-24 10:21] VITALS: BMI 39.3
[2017-12-24 10:38] VITALS: BP 119/72; PULSE 80; RESP 18; TEMP 98; O2SAT 99
--- NOTE | 2017-12-24 10:42 | ED PDOC ---
Arrival/HPI - General Time Seen by Provider: 12/24/17 10:22 Historian: Patient - History of Present Illness Narrative History of Present Illness (Text): 12/24/17 10:37 62yo female with pmhx of Asthma, anxiety, stroke, hypertension bib EMS for anxiety . States she ran out of her Ativan 2days ago. States her PMD suddenly decided to stopped giving her Ativan. She notes that she have appointment with a Psychiatrist in 3weeks. She denies any other somatic complaint. Denies SI/HI. Past Medical History - Provider Review Nursing Documentation Reviewed: Yes - Infectious Disease Hx of Infectious Diseases: None - Tetanus Immunization Tetanus Immunization: Up to Date - Past Medical History Past Medical History: Non-Contributing - Cardiac Hx Coronary Artery Disease: Yes Hx Congestive Heart Failure: Yes Hx Hypertension: Yes Hx Peripheral Edema: Yes - Pulmonary Hx Asthma: Yes Hx Bronchitis: Yes Hx Pulmonary Embolism: Yes - Neurological Hx Migraine: Yes Hx Seizures: Yes - HEENT Hx HEENT Disorder: No - Renal Hx Renal Disorder: No - Hematological/Oncological Hx Anemia: Yes - Integumentary Hx Dermatological Disorder: No - Musculoskeletal/Rheumatological Hx Arthritis: Yes - Gastrointestinal Hx Crohn's Disease: Yes Hx Gall Bladder Disease: Yes Hx Gastritis: Yes Hx Gastrointestinal Ulcer: Yes - Genitourinary/Gynecological Hx Sexually Transmitted Diseases: No - Psychiatric Hx Anxiety: Yes Hx Depression: Yes Hx Substance Use: No - Past Surgical History Past Surgical History: Non-Contributing - Surgical History Hx Cholecystectomy: Yes - Anesthesia Hx Anesthesia: Yes Hx Anesthesia Reactions: No Hx Malignant Hyperthermia: No - Suicidal Assessment Feels Threatened In Home Enviroment: No Family/Social History - Physician Review Nursing Documentation Reviewed: Yes Family/Social History: Unknown Family HX Smoking Status: Former Smoker Hx Alcohol Use: No Hx Substance Use: No Substance used: RX MEDICATION Hx Substance Use Treatment: No Allergies/Home Meds Allergies/Adverse Reactions: Allergies aspirin Allergy (Verified 12/23/17 09:46) SHORTNESS OF BREATH benzethonium chloride Allergy (Verified 12/23/17 09:46) URTICARIA benzocaine Allergy (Verified 12/23/17 09:46) ITCHING broccoli Allergy (Verified 12/23/17 09:46) ITCHING haloperidol Allergy (Verified 12/23/17 09:46) VOMITING ketorolac Allergy (Verified 12/23/17 09:46) ANAPHYLAXIS lidocaine Allergy (Verified 12/23/17 09:46) ITCHING nitroglycerin Allergy (Verified 12/23/17 09:46) URTICARIA oxycodone Allergy (Verified 12/23/17 09:46) SHORTNESS OF BREATH pineapple Allergy (Verified 12/23/17 09:46) ITCHING trazodone Allergy (Verified 12/14/17 21:49) SWELLING ziprasidone [From Geodon] Allergy (Verified 12/14/17 21:49) SHORTNESS OF BREATH steroids Allergy (Uncoded 12/14/17 21:49) "heart flutters", swelling Home Medications: Home Meds Medication Instructions Recorded Confirmed Enoxaparin [Lovenox] 80 mg SC BID 12/18/16 12/22/17 HYDROmorphone [Dilaudid 2 mg Tab] 2 mg PO QID PRN 12/22/17 12/22/17 LORazepam [Ativan] 2 mg PO BID 12/22/17 12/22/17 Potassium 1 tab PO DAILY 12/22/17 12/22/17 amLODIPine [Norvasc] 10 mg PO DAILY 12/22/17 12/22/17 Review of Systems - Physician Review All systems were reviewed & negative as marked: Yes - Review of Systems Constitutional: Normal Eyes: Normal ENT: Normal Respiratory: Normal Cardiovascular: Normal Gastrointestinal: Normal Genitourinary Female: Normal Musculoskeletal: Normal Skin: Normal Neurological: Normal Endocrine: Normal Hemo/Lymphatic: Normal Psychiatric: Anxiety Physical Exam Vital Signs Reviewed: Yes Temperature: Afebrile Blood Pressure: Normal Pulse: Regular Respiratory Rate: Normal Appearance: Positive for: Well-Appearing, Non-Toxic, Comfortable Pain Distress: None Mental Status: Positive for: Alert and Oriented X 3 - Systems Exam Head: Present: Atraumatic, Normocephalic Pupils: Present: PERRL Extroacular Muscles: Present: EOMI Conjunctiva: Present: Normal Mouth: Present: Moist Mucous Membranes Neck: Present: Normal Range of Motion Respiratory/Chest: Present: Clear to Auscultation, Good Air Exchange. No: Respiratory Distress, Accessory Muscle Use Cardiovascular: Present: Regular Rate and Rhythm, Normal S1, S2. No: Murmurs Abdomen: No: Tenderness, Distention, Peritoneal Signs Back: Present: Normal Inspection Upper Extremity: Present: Normal Inspection. No: Cyanosis, Edema Lower Extremity: Present: Normal Inspection. No: Edema Neurological: Present: GCS=15, CN II-XII Intact, Speech Normal Skin: Present: Warm, Dry, Normal Color. No: Rashes Psychiatric: Present: Alert, Oriented x 3, Normal Insight, Normal Concentration Medical Decision Making ED Course and Treatment: 12/24/17 10:43 62 yo female in ED for anxiety. Pt has been seen here multiple times for same complaint. Her last visit was 12/22. She was advised to f/u outpt for Ativan rx and was advised that she can no longer get Ativan from this ED. She was offered Xanax in place of the Ativan, but she declined. She is exhibiting drug seeking behavior. Disposition/Present on Arrival - Present on Arrival Any Indicators Present on Arrival: No History of DVT/PE: Yes History of Uncontrolled Diabetes: No Urinary Catheter: No History Surgical Site Infection Following: None - Disposition Have Diagnosis and Disposition been Completed?: Yes Diagnosis: Drug abuse and dependence Disposition: HOME/ ROUTINE Disposition Time: 10:30 Patient Plan: Discharge Condition: STABLE Discharge Instructions (ExitCare): Drug Abuse and Drug Addiction (DC) Referrals: Jony Sy MD [Primary Care Provider] - Follow up with primary
== END 2017-12-24 10:32 | disposition home or self-care (01) ==
LOC: ED 10:21
DX: F19.20 Other psychoactive substance dependence, uncomplicated (principal); I25.10 Atherosclerotic heart disease of native coronary artery without angina pectoris; I50.9 Heart failure, unspecified; I10 Essential (primary) hypertension; Z87.891 Personal history of nicotine dependence

== ENCOUNTER 2018-01-19 15:43 | Emergency (ER) | payer OTHER ==
[2018-01-19 15:45] VITALS: BMI 39.3
[2018-01-19 16:29] VITALS: RESP 18; TEMP 98.9
--- NOTE | 2018-01-19 17:36 | ED PDOC ---
Arrival/HPI - General Chief Complaint: Seizure Time Seen by Provider: 01/19/18 16:42 Historian: Patient - History of Present Illness Narrative History of Present Illness (Text): 01/19/18 17:16 62 y/o F with past medical history of asthma, anxiety, CVA, and hypertension, presents to the Emergency Department via EMS s/p seizure prior to arrival. She states she was walking outside when she experienced an unwitnessed episode of se izure lasting for only a few minutes. Patient reports urinary incontinence and a short post-ictal period following the episode but denies any tongue biting or head injury. Patient states feeling dizzy and headache following the episode prompting her to present to the Emergency Department for medical evaluation. Patient reports subjective fever, chills and "feeling tired" prior to the episode but denies any nausea, vomiting, diarrhea, chest pain or shortness of breath. Patient informs chronic abdominal pain and back pain but denies exacerbation of symptoms. Patient denies any other somatic complaints. Time/Duration: Prior to Arrival Symptom Onset: Sudden Symptom Course: Improving Context: Street Past Medical History - Provider Review Nursing Documentation Reviewed: Yes - Travel History Have you recently traveled outside [place] w/in the past 3 mons?: No - Infectious Disease Hx of Infectious Diseases: None - Tetanus Immunization Tetanus Immunization: Up to Date - Reproductive Menopause: Yes - Past Medical History Past Medical History: Non-Contributing - Cardiac Hx Congestive Heart Failure: Yes Hx Hypertension: Yes Hx Peripheral Edema: Yes - Pulmonary Hx Asthma: Yes Hx Bronchitis: Yes Hx Pulmonary Embolism: Yes - Neurological Hx Migraine: Yes Hx Seizures: Yes - HEENT Hx HEENT Disorder: No - Renal Hx Renal Disorder: No - Hematological/Oncological Hx Anemia: Yes - Integumentary Hx Dermatological Disorder: No - Musculoskeletal/Rheumatological Hx Arthritis: Yes - Gastrointestinal Hx Crohn's Disease: Yes Hx Gall Bladder Disease: Yes Hx Gastritis: Yes Hx Gastrointestinal Ulcer: Yes - Genitourinary/Gynecological Hx Sexually Transmitted Diseases: No - Psychiatric Hx Anxiety: Yes Hx Depression: Yes Hx Substance Use: No - Past Surgical History Past Surgical History: Non-Contributing - Surgical History Hx Cholecystectomy: Yes - Anesthesia Hx Anesthesia: Yes Hx Anesthesia Reactions: No Hx Malignant Hyperthermia: No - Suicidal Assessment Feels Threatened In Home Enviroment: No Family/Social History - Physician Review Nursing Documentation Reviewed: Yes Family/Social History: No Known Family HX Smoking Status: Former Smoker Hx Alcohol Use: No Hx Substance Use: No Substance used: RX MEDICATION Hx Substance Use Treatment: No Allergies/Home Meds Allergies/Adverse Reactions: Allergies aspirin Allergy (Verified 12/23/17 09:46) SHORTNESS OF BREATH benzethonium chloride Allergy (Verified 12/23/17 09:46) URTICARIA benzocaine Allergy (Verified 12/23/17 09:46) ITCHING broccoli Allergy (Verified 12/23/17 09:46) ITCHING haloperidol Allergy (Verified 12/23/17 09:46) VOMITING ketorolac Allergy (Verified 12/23/17 09:46) ANAPHYLAXIS lidocaine Allergy (Verified 12/23/17 09:46) ITCHING nitroglycerin Allergy (Verified 12/23/17 09:46) URTICARIA oxycodone Allergy (Verified 12/23/17 09:46) SHORTNESS OF BREATH pineapple Allergy (Verified 12/23/17 09:46) ITCHING trazodone Allergy (Verified 12/14/17 21:49) SWELLING ziprasidone [From Geodon] Allergy (Verified 12/14/17 21:49) SHORTNESS OF BREATH steroids Allergy (Uncoded 12/14/17 21:49) "heart flutters", swelling Home Medications: Home Meds Medication Instructions Recorded Confirmed Enoxaparin [Lovenox] 80 mg SC BID 12/18/16 12/22/17 HYDROmorphone [Dilaudid 2 mg Tab] 2 mg PO QID PRN 12/22/17 12/22/17 LORazepam [Ativan] 2 mg PO BID 12/22/17 12/22/17 Potassium 1 tab PO DAILY 12/22/17 12/22/17 amLODIPine [Norvasc] 10 mg PO DAILY 12/22/17 12/22/17 Review of Systems - Physician Review All systems were reviewed & negative as marked: Yes - Review of Systems Constitutional: absent: Fevers Respiratory: absent: SOB, Cough Cardiovascular: absent: Chest Pain, [place] Gastrointestinal: absent: Abdominal Pain, Diarrhea, Nausea, Vomiting Musculoskeletal: absent: Back Pain, Neck Pain Neurological: Headache, Dizziness, Seizure Physical Exam Vital Signs Reviewed: Yes Vital Signs Temp Pulse Resp BP Pulse Ox 01/19/18 16:23 98.9 F 92 H 18 126/86 99 Temperature: Afebrile Blood Pressure: Normal Pulse: Regular Respiratory Rate: Normal Appearance: Positive for: Non-Toxic, Comfortable, Other (Morbidly obese) Pain Distress: None Mental Status: Positive for: Alert and Oriented X 3 - Systems Exam Head: Present: Atraumatic, Normocephalic Pupils: Present: PERRL Extroacular Muscles: Present: EOMI Conjunctiva: Present: Normal Mouth: Present: Moist Mucous Membranes Neck: Present: Normal Range of Motion Respiratory/Chest: Present: Clear to Auscultation, Good Air Exchange. No: Respiratory Distress, Accessory Muscle Use Cardiovascular: Present: Regular Rate and Rhythm, Normal S1, S2. No: Murmurs Abdomen: No: Tenderness, Distention, Peritoneal Signs Back: Present: Normal Inspection Upper Extremity: Present: Normal Inspection. No: Cyanosis, Edema Lower Extremity: Present: Normal Inspection. No: Edema Neurological: Present: GCS=15, CN II-XII Intact, Speech Normal, Motor Func Grossly Intact, Normal Sensory Function, Normal Cerebellar Funct, Memory Normal, Other (No facial asymmetry) Skin: Present: Warm, Dry, Normal Color. No: Rashes Psychiatric: Present: Alert, Oriented x 3, Normal Insight, Normal Concentration Medical Decision Making ED Course and Treatment: 01/19/18 17:16 Impression: 62 year old female presents to the Emergency Department complaining of headache and dizziness s/p seizure. Differential Diagnosis included but are not limited to: Seizure Plan: -- CT of head -- Labs -- Chest X-ray -- Urinalysis -- Reassess and disposition Prior Visits: Notes and results from previous visits were reviewed. Progress Notes: 01/20/18 19:52 IV guided IV access successful. Labs collected and sent to lab for specimen. Ativan ordered. Patient signed out to Dr. Ramirez who will resume the patient's care. - RAD Interpretation Narrative RAD Interpretations (Text): 01/19/18 18:17 Chest X-ray reviewed by radiologist, shows: FINDINGS: LUNGS: No active pulmonary disease. PLEURA: No significant pleural effusion identified, no pneumothorax apparent. CARDIOVASCULAR: No radiographic findings to suggest acute or significant cardiovascular disease. OSSEOUS STRUCTURES: No significant abnormalities. VISUALIZED UPPER ABDOMEN: Normal. OTHER FINDINGS: None. IMPRESSION: No active disease. No significant interval change compared to the prior examination(s). Radiology Orders: 10/08/18 17:16 HEAD W/O CONTRAST [CT] Stat 01/19/18 17:18 CHEST PORTABLE [RAD] Stat President Educational Institution: Radiologist - Scribe Statement The provider has reviewed the documentation as recorded by the Scribe Ewelina Chinchilla. All medical record entries made by the Scribe were at my direction and personally dictated by me. I have reviewed the chart and agree that the record accurately reflects my personal performance of the history, physical exam, medical decision making, and the department course for this patient. I have also personally directed, reviewed, and agree with the discharge instructions and disposition. Disposition/Present on Arrival - Present on Arrival Any Indicators Present on Arrival: Yes History of DVT/PE: Yes History of Uncontrolled Diabetes: No Urinary Catheter: No History of Decub. Ulcer: No History Surgical Site Infection Following: None - Disposition Have Diagnosis and Disposition been Completed?: Yes Diagnosis: Seizure disorder, Anxiety Disposition: HOME/ ROUTINE Disposition Time: 20:00 Condition: GOOD Discharge Instructions (ExitCare): Anxiety, Adult (DC), Seizures, Adult (DC) Additional Instructions: Continue your current medications /follow up with your doctor this week Referrals: Cedric Huang MD [Primary Care Provider] - Follow up with primary Forms: [employer] (Iranian)
--- NOTE | 2018-01-19 18:10 | RAD ---
Date of service: 01/19/2018 HISTORY: Seizure. COMPARISON: 12/01/2017. FINDINGS: LUNGS: No active pulmonary disease. PLEURA: No significant pleural effusion identified, no pneumothorax apparent. CARDIOVASCULAR: No radiographic findings to suggest acute or significant cardiovascular disease. OSSEOUS STRUCTURES: No significant abnormalities. VISUALIZED UPPER ABDOMEN: Normal. OTHER FINDINGS: None. IMPRESSION: No active disease. No significant interval change compared to the prior examination(s).
[2018-01-19 21:03] LABS: BASO # 0.01 K/mm3 (0.0-2.0); BASO % 0.2 % (0.0-3.0); EOS # 0.1 (0.0-0.7); GRAN # 3.41 (1.4-6.5); GRAN % 55.3 % (50.0-68.0); HEMOGLOBIN 12.2 g/dL (12.0-16.0); LYMPH # 2.3 (1.2-3.4); LYMPH % 37.6 % (22.0-35.0); MEAN CELL VOLUME 97.9 fl (80.0-105.0); MEAN CORPUSCULAR HEMOGLOBIN 31.6 pg (25.0-35.0); MEAN CORPUSCULAR HGB CONC 32.3 g/dl (31.0-37.0); MONO # 0.4 (0.1-0.6); MONO % 5.9 % (1.0-6.0); PH,URINE 6.5 (4.7-8.0); RBC 3.86 10^6/uL (3.5-6.1); RED CELL DISTRIBUTION WIDTH 14.3 % (11.5-14.5); URINE BILIRUBIN NEGATIVE (NEGATIVE); URINE BLOOD NEGATIVE (NEGATIVE); URINE GLUCOSE (UA) NEGATIVE (NEGATIVE); URINE LEUKOCYTE ESTERASE TRACE Leu/uL (NEGATIVE); URINE PROTEIN NEGATIVE mg/dL (<30 mg/dL); URINE UROBILINOGEN 0.2 E.U./dL (<1 E.U./dL); WHITE BLOOD COUNT 6.2 10^3/ul (4.5-11.0)
[2018-01-19 21:04] LABS: URINE APPEARANCE CLEAR (CLEAR); URINE COLOR YELLOW (YELLOW)
[2018-01-19 21:12] LABS: INR 1.03; PARTIAL THROMBOPLASTIN TIME 27.9 Seconds (25.1-36.5); PROTHROMBIN TIME 11.8 SECONDS (9.4-12.5)
[2018-01-19 21:15] LABS: ALB/GLOB RATIO 1.1 (1.1-1.8); ALBUMIN 3.9 g/dL (3.0-4.8); BLOOD UREA NITROGEN 10 mg/dL (7-21); CALCIUM 8.5 mg/dL (8.4-10.5); GFR NON-AFRICAN AMERICAN > 60
[2018-01-19 21:16] LABS: ALT/SGPT 33 U/L (7-56); AST/SGOT 40 U/L (14-36)
[2018-01-19 21:24] LABS: BARBITURATES, UR NEGATIVE (NEGATIVE)
--- NOTE | 2018-01-19 21:25 | ED PDOC ---
Physical Exam Vital Signs Temp Pulse Resp BP Pulse Ox 01/19/18 16:23 98.9 F 92 H 18 126/86 99 Medical Decision Making ED Course and Treatment: 01/19/18 21:00 Case endorsed to me by Dr. Kellogg, pending CT Head, reassessment, and disposition. - Lab Interpretations Lab Results: 01/19/18 20:44 01/19/18 20:44 Lab Results 01/19/18 20:44: PT 11.8, INR 1.03, APTT 27.9 01/19/18 20:44: Phenytoin 12 01/19/18 20:44: Urine Color Yellow, Urine Appearance Clear, Urine pH 6.5, Ur Specific [place] 1.010, Urine Protein Negative, Urine Glucose (UA) Negative, Urine Ketones Negative, Urine Blood Negative, Urine Nitrate Negative, Urine Bilirubin Negative, Urine Urobilinogen 0.2, Ur Leukocyte Esterase Trace H, Urine RBC TEST NOT PERFORMED, Urine WBC 5 - 10, Ur Epithelial Cells 6 - 8 01/19/18 20:44: Sodium 142, Potassium 4.3, Chloride 106, Carbon Dioxide 32, Anion Gap 8 L, BUN 10, Creatinine 0.6 L, Est GFR ( Amer) > 60, Est GFR (Non-Af Amer) > 60, Random Glucose 97, Calcium 8.5, Magnesium 2.1, Total Bilirubin 0.3, AST 40 H D, ALT 33, Alkaline Phosphatase 135 H, Total Protein 7.5, Albumin 3.9, Globulin 3.6, Albumin/Globulin Ratio 1.1 01/19/18 20:44: WBC 6.2 D, RBC 3.86, Hgb 12.2, Hct 37.8, MCV 97.9, MCH 31.6, MCHC 32.3, RDW 14.3, Plt Count 161, MPV 10.0, Gran % 55.3, Lymph % (Auto) 37.6 H , [place] % (Auto) 5.9, Eos % (Auto) 1.0 L, Baso % (Auto) 0.2, Gran # 3.41, Lymph # (Auto) 2.3, [place] # (Auto) 0.4, Eos # (Auto) 0.1, Baso # (Auto) 0.01 - RAD Interpretation Radiology Orders: 01/19/18 17:16 HEAD W/O CONTRAST [CT] Stat 10/08/18 17:18 CHEST PORTABLE [RAD] Stat - Medication Orders Current Medication Orders: Discontinued Medications Acetaminophen (Tylenol 325mg Tab) 650 mg PO STAT STA Stop: 01/19/18 21:08 Lorazepam (Ativan) 1 mg IVP ONCE ONE; Protocol Stop: 01/19/18 21:11 Disposition/Present on Arrival - Present on Arrival History of DVT/PE: Yes History of Uncontrolled Diabetes: No Urinary Catheter: No History of Decub. Ulcer: No History Surgical Site Infection Following: None - Disposition Referrals: Cedric Huang MD [Primary Care Provider] - Follow up with primary Forms: [employer] (Grenadian)
[2018-01-19 21:26] LABS: BENZODIAZEPINES, UR NEGATIVE (NEGATIVE); OPIATES, UR NEGATIVE (NEGATIVE); PHENCYCLIDINE, UR NEGATIVE (NEGATIVE)
--- NOTE | 2018-01-19 21:27 | ED PDOC ---
Physical Exam Vital Signs Temp Pulse Resp BP Pulse Ox 01/19/18 16:23 98.9 F 92 H 18 126/86 99 Medical Decision Making ED Course and Treatment: 01/19/18 21:00 Case endorsed to me by Dr. Kellogg, pending CT, reassessment, and disposition. Pt, whose past medical history includes asthma, anxiety, hypertension, PE, seizure disorder, well known to ER staff from multiple prior visits, presented s/p seizure today. 01/19/18 22:53 CT Head Impression: Advanced, age appropriate involutional changes. On re-evaluation, patient feels better and is in no acute distress. I have discussed the results and plan with the patient, who expresses understanding. Patient in agreement with plan to be discharged home. Patient is stable for discharge. Patient was instructed to follow up with physician or return if symptoms worsen or new concerning symptoms arise. - Lab Interpretations Lab Results: 01/19/18 20:44 01/19/18 20:44 Lab Results 01/19/18 20:44: PT 11.8, INR 1.03, APTT 27.9 01/19/18 20:44: Phenytoin 12 01/19/18 20:44: Urine Color Yellow, Urine Appearance Clear, Urine pH 6.5, Ur Specific [place] 1.010, Urine Protein Negative, Urine Glucose (UA) Negative, Urine Ketones Negative, Urine Blood Negative, Urine Nitrate Negative, Urine Bilirubin Negative, Urine Urobilinogen 0.2, Ur Leukocyte Esterase Trace H, Urine RBC TEST NOT PERFORMED, Urine WBC 5 - 10, Ur Epithelial Cells 6 - 8 01/19/18 20:44: Urine Opiates Screen Negative, Urine Methadone Screen Negative, Ur Barbiturates Screen Negative, Ur Phencyclidine Scrn Negative, Ur Amphetamines Screen Negative, U Benzodiazepines Scrn Negative, U Oth Cocaine Metabols Negative, U Cannabinoids Screen Negative 01/19/18 20:44: Sodium 142, Potassium 4.3, Chloride 106, Carbon Dioxide 32, Anion Gap 8 L, BUN 10, Creatinine 0.6 L, Est GFR ( Amer) > 60, Est GFR (Non-Af Amer) > 60, Random Glucose 97, Calcium 8.5, Magnesium 2.1, Total Bilirubin 0.3, AST 40 H D, ALT 33, Alkaline Phosphatase 135 H, Total Protein 7.5, Albumin 3.9, Globulin 3.6, Albumin/Globulin Ratio 1.1 01/19/18 20:44: WBC 6.2 D, RBC 3.86, Hgb 12.2, Hct 37.8, MCV 97.9, MCH 31.6, MCHC 32.3, RDW 14.3, Plt Count 161, MPV 10.0, Gran % 55.3, Lymph % (Auto) 37.6 H , [place] % (Auto) 5.9, Eos % (Auto) 1.0 L, Baso % (Auto) 0.2, Gran # 3.41, Lymph # (Auto) 2.3, [place] # (Auto) 0.4, Eos # (Auto) 0.1, Baso # (Auto) 0.01 - RAD Interpretation Radiology Orders: 01/19/18 17:16 HEAD W/O CONTRAST [CT] Stat 01/19/18 17:18 CHEST PORTABLE [RAD] Stat - Medication Orders Current Medication Orders: Discontinued Medications Acetaminophen (Tylenol 325mg Tab) 650 mg PO STAT STA Stop: 01/19/18 21:08 Lorazepam (Ativan) 1 mg IVP ONCE ONE; Protocol Stop: 01/19/18 21:11 Disposition/Present on Arrival - Present on Arrival Any Indicators Present on Arrival: No History of DVT/PE: Yes History of Uncontrolled Diabetes: No Urinary Catheter: No History of Decub. Ulcer: No History Surgical Site Infection Following: None - Disposition Have Diagnosis and Disposition been Completed?: Yes Diagnosis: Seizure disorder, Anxiety Disposition: HOME/ ROUTINE Disposition Time: 22:50 Patient Plan: Discharge Patient Problems: Current Active Problems Problem Status Onset Anxiety Acute Seizure disorder Acute Condition: GOOD Discharge Instructions (ExitCare): Anxiety, Adult (DC), Seizures, Adult (DC) Additional Instructions: Continue your current medications /follow up with your doctor this week Referrals: Cedric Huang MD [Primary Care Provider] - Follow up with primary Forms: [employer] (Norwegian)
[2018-01-20 02:33] VITALS: BP 130/75; PULSE 86; O2SAT 95
--- NOTE | 2018-01-20 08:10 | CT ---
Date of service: 01/19/2018 PROCEDURE: CT HEAD WITHOUT CONTRAST. HISTORY: LEMA s/p seizure COMPARISON: 02/11/2017 TECHNIQUE: Axial computed tomography images were obtained through the head/brain without intravenous contrast. Radiation dose: Total exam DLP = 854 mGy-cm. This CT exam was performed using one or more of the following dose reduction techniques: Automated exposure control, adjustment of the mA and/or kV according to patient size, and/or use of iterative reconstruction technique. FINDINGS: HEMORRHAGE: No intracranial hemorrhage. BRAIN: No mass effect or edema. No atrophy or chronic microvascular ischemic changes. VENTRICLES: Unremarkable. No hydrocephalus. CALVARIUM: Unremarkable. PARANASAL SINUSES: Unremarkable as visualized. No significant inflammatory changes. MASTOID AIR CELLS: Unremarkable as visualized. No inflammatory changes. OTHER FINDINGS: The report concurs with the preliminary [facility] report IMPRESSION: No acute intracranial findings
== END 2018-01-19 23:56 | disposition home or self-care (01) ==
LOC: ED 15:43
DX: G40.909 Epilepsy, unspecified, not intractable, without status epilepticus (principal); F41.9 Anxiety disorder, unspecified; I50.9 Heart failure, unspecified; I10 Essential (primary) hypertension; Z87.891 Personal history of nicotine dependence
CPT/HCPCS: 70450; 71045; 80053; 80185; 80324; 80345; 80346; 80349; 80353; 80358; 80361; 81001; 83735; 83992; 85025; 85610; 85730; 87086; 96374; 99285; J2060

== ENCOUNTER 2018-02-12 23:15 | Emergency (ER) | payer OTHER ==
[2018-02-12 23:23] VITALS: BMI 38.4
--- NOTE | 2018-02-13 00:18 | ED PDOC ---
Arrival/HPI - General Chief Complaint: Chest Pain Time Seen by Provider: 02/12/18 23:56 Historian: Patient - History of Present Illness Narrative History of Present Illness (Text): 02/13/18 00:54 62 year old female, with past medical history of asthma, anxiety, CVA, and hypertension, presents to the Emergency Department with chest pain and anxiety. Patient states she feels midsternal chest tightness. Patient states the pain radiates to her neck. 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 Patient informs having a PE in 2016. Patient denies any fevers, chills, headache, dizziness, abdominal pain, nausea, vomiting, diarrhea, back pain, urinary/bowel changes, or any other complaint. Time/Duration: Prior to Arrival Symptom Onset: Gradual Symptom Course: Unchanged Past Medical History - Provider Review Nursing Documentation Reviewed: Yes - Infectious Disease Hx of Infectious Diseases: None - Tetanus Immunization Tetanus Immunization: Up to Date - Reproductive Menopause: Yes - Past Medical History Past Medical History: Non-Contributing - Cardiac Hx Congestive Heart Failure: Yes Hx Hypertension: Yes Hx Peripheral Edema: Yes - Pulmonary Hx Asthma: Yes Hx Bronchitis: Yes Hx Pulmonary Embolism: Yes - Neurological Hx Migraine: Yes Hx Seizures: Yes - HEENT Hx HEENT Disorder: No - Renal Hx Renal Disorder: No - Hematological/Oncological Hx Anemia: Yes - Integumentary Hx Dermatological Disorder: No - Musculoskeletal/Rheumatological Hx Arthritis: Yes - Gastrointestinal Hx Crohn's Disease: Yes Hx Gall Bladder Disease: Yes Hx Gastritis: Yes Hx Gastrointestinal Ulcer: Yes - Genitourinary/Gynecological Hx Sexually Transmitted Diseases: No - Psychiatric Hx Anxiety: Yes Hx Depression: Yes Hx Substance Use: No - Past Surgical History Past Surgical History: Non-Contributing - Surgical History Hx Cholecystectomy: Yes - Anesthesia Hx Anesthesia: Yes Hx Anesthesia Reactions: No Hx Malignant Hyperthermia: No - Suicidal Assessment Feels Threatened In Home Enviroment: No Family/Social History - Physician Review Nursing Documentation Reviewed: Yes Family/Social History: No Known Family HX Smoking Status: Former Smoker Hx Alcohol Use: No Hx Substance Use: No Substance used: RX MEDICATION Hx Substance Use Treatment: No Allergies/Home Meds Allergies/Adverse Reactions: Allergies aspirin Allergy (Verified 02/12/18 23:24) SHORTNESS OF BREATH benzethonium chloride Allergy (Verified 02/12/18 23:24) URTICARIA benzocaine Allergy (Verified 02/12/18 23:24) ITCHING broccoli Allergy (Verified 02/12/18 23:24) ITCHING haloperidol Allergy (Verified 02/12/18 23:24) VOMITING ketorolac Allergy (Verified 02/12/18 23:24) ANAPHYLAXIS lidocaine Allergy (Verified 02/12/18 23:24) ITCHING nitroglycerin Allergy (Verified 02/12/18 23:24) URTICARIA oxycodone Allergy (Verified 02/12/18 23:24) SHORTNESS OF BREATH pineapple Allergy (Verified 02/12/18 23:24) ITCHING trazodone Allergy (Verified 02/12/18 23:24) SWELLING ziprasidone [From Geodon] Allergy (Verified 02/12/18 23:24) SHORTNESS OF BREATH steroids Allergy (Uncoded 02/12/18 23:24) "heart flutters", swelling Home Medications: Home Meds Medication Instructions Recorded Confirmed Enoxaparin [Lovenox] 80 mg SC BID 12/18/16 02/13/18 HYDROmorphone [Dilaudid 2 mg Tab] 2 mg PO QID PRN 12/22/17 02/13/18 LORazepam [Ativan] 2 mg PO BID 12/22/17 02/13/18 amLODIPine [Norvasc] 10 mg PO DAILY 12/22/17 02/13/18 Review of Systems - Physician Review All systems were reviewed & negative as marked: Yes - Review of Systems Constitutional: absent: Fevers, Night Sweats Cardiovascular: Chest Pain Gastrointestinal: absent: Abdominal Pain, Diarrhea, Nausea, Vomiting Genitourinary Female: absent: Urine Output Changes Musculoskeletal: absent: Back Pain Neurological: absent: Headache, Dizziness Physical Exam - Physical Exam Narrative Physical Exam (Text): 02/13/18 00:57 Gen: VS reviewed, alert, well developed, well nourished, nontoxic, mild distress. ENT: normal pharynx. Eye: EOMI, PERRL. Neck: no JVD, supple, no adenopathy. CV: regular rate, regular rhythm, no rubs, no murmur, no gallops, S1, S2, pulses equal and strong. Pulm: no distress, clear to auscultation, no wheeze, no rhonchi, breath sounds equal, no rales. Abd: soft, nontender, no guarding, no rebound, no rigidity, normal bowel sounds. Ext: no edema. Skin: good color, no rash, no cyanosis. Psych: responds appropriately to questions, normal affect. Neuro: oriented x 3, CN2-12 intact grossly, motor intact, sensation intact. Vital Signs Reviewed: Yes Vital Signs Temp Pulse Resp BP Pulse Ox 02/12/18 23:41 97.7 F 93 H 18 145/66 99 Temperature: Afebrile Blood Pressure: Normal Pulse: Regular Respiratory Rate: Normal Appearance: Positive for: Well-Appearing, Non-Toxic, Comfortable Pain Distress: None Mental Status: Positive for: Alert and Oriented X 3 Medical Decision Making ED Course and Treatment: 02/13/18 00:57 Impression: 62 year old female presents with chest pain and anxiety Plan: -- Labs -- Reassess and disposition Prior Visits: Notes and results from previous visits were reviewed. Progress Notes: 02/13/18 02:44 patient appears preoccupied with getting a dose of her ativan despite appearing calm and relaxed. after review of the patient's previous Ed visits, patient has frequented the ED with the same complaint and issue with suspected drug seeking behavior. at this time the patient does not exhibit benzo withdrawal symptoms. the patent states "i just need a dose until i fill my prescription tomorrow". i informed the patient that she no longer required emergent evaluation and she may simply fill her prescription to take her regularly prescribed medication. - EKG Interpretation EKG Interpretation (Text): 02/12/18 23:36 nsr at 99 bpm, nml qrs, nml axis, no acute sttw abn Interpreted by ED Physician: Yes Disposition/Present on Arrival - Present on Arrival Any Indicators Present on Arrival: No History of DVT/PE: Yes History of Uncontrolled Diabetes: No Urinary Catheter: No History of Decub. Ulcer: No History Surgical Site Infection Following: None - Disposition Have Diagnosis and Disposition been Completed?: Yes Diagnosis: Anxiety Disposition: HOME/ ROUTINE Disposition Time: 02:47 Patient Plan: Discharge Condition: STABLE Referrals: Cedric Huang MD [Primary Care Provider] - Follow up with primary Forms: [employer] (Norwegian)
[2018-02-13 02:03] LABS: BASO # 0.01 K/mm3 (0.0-2.0); BASO % 0.1 % (0.0-3.0); EOS # 0.1 (0.0-0.7); GRAN # 4.44 (1.4-6.5); GRAN % 63.5 % (50.0-68.0); LYMPH # 1.9 (1.2-3.4); LYMPH % 26.4 % (22.0-35.0); MEAN CELL VOLUME 96.8 fl (80.0-105.0); MEAN CORPUSCULAR HEMOGLOBIN 31.8 pg (25.0-35.0); MEAN CORPUSCULAR HGB CONC 32.9 g/dl (31.0-37.0); MEAN PLATELET VOLUME 10.5 fl (7.0-11.0); MONO # 0.6 (0.1-0.6); RBC 3.77 10^6/uL (3.5-6.1); RED CELL DISTRIBUTION WIDTH 14.1 % (11.5-14.5)
[2018-02-13 02:14] VITALS: BP 147/64; PULSE 89; RESP 19; TEMP 97.8; O2SAT 97
[2018-02-13 02:16] LABS: ALB/GLOB RATIO 1.1 (1.1-1.8); ALBUMIN 3.8 g/dL (3.0-4.8); BLOOD UREA NITROGEN 11 mg/dL (7-21); CALCIUM 8.6 mg/dL (8.4-10.5); GFR NON-AFRICAN AMERICAN > 60
[2018-02-13 02:27] LABS: TROPONIN I < 0.01 ng/mL
[2018-02-13 02:41] LABS: ALT/SGPT 30 U/L (7-56); AST/SGOT 33 U/L (14-36)
[2018-02-13 02:42] LABS: BARBITURATES, UR NEGATIVE (NEGATIVE)
[2018-02-13 02:49] LABS: BENZODIAZEPINES, UR NEGATIVE (NEGATIVE); OPIATES, UR NEGATIVE (NEGATIVE); PHENCYCLIDINE, UR NEGATIVE (NEGATIVE)
--- NOTE | 2018-02-13 11:27 | CARD ---
APPROVED REPORT Date of service: 02/12/2018 EKG Measurement Heart [id number] <Conclusion> Normal sinus rhythm T wave abnormality, consider inferior ischemia Abnormal ECG
== END 2018-02-13 02:49 | disposition home or self-care (01) ==
LOC: ED 23:15
DX: F41.9 Anxiety disorder, unspecified (principal); I50.9 Heart failure, unspecified; I10 Essential (primary) hypertension; Z87.891 Personal history of nicotine dependence; Z86.73 Personal history of transient ischemic attack (TIA), and cerebral infarction without residual deficits

== ENCOUNTER 2018-02-13 17:58 | Inpatient (IN) | payer OTHER ==
[2018-02-13 17:58] VITALS: BMI 38.4
--- NOTE | 2018-02-13 19:14 | ED PDOC ---
Arrival/HPI - General Historian: Patient, Other ([facility] [place] Pharmacist, Rony Jordan) - History of Present Illness Narrative History of Present Illness (Text): 02/13/18 18:45 A 62 year old female, whose past medical history includes asthma, anxiety, CVA, and hypertension, presents to the emergency department for a possible seizure earlier today. Patient reports she went to see her primary medical doctor and had seizure at the doctor's office earlier today and later when she was picking up her ativan prescription at the [facility] pharmacy she had another seizure. Patient reports she lost consciousness and has not taken her diltanin in the past 2 days but has taken it today. As per [facility] [place] pharmacist, Rony Jordan, he witnessed event and was talking to the patient when she suddenly became unresponsive. rapid response was called on that patient and when team arrived, that patient refused care. Pharmacist Julian states patient did not collapse on the ground and did not hit her head. He states the episode lasted less than 2 minutes and the patient already picked up her ativan prescription when episode occurred. Patient reports a mild headache and denies any fever, chills, shortness of breath, chest pain, diarrhea, nausea, vomiting, urinary symptoms, back pain, neck pain, dizziness, or any other complaints. In the ER at bedside, the patient's blood pressure measured to 176/106 and patient states she did not take her blood pressure medication, norvasc 10 mg, today. PMD [place] Time/Duration: 1-3 hours (earlier today) Symptom Onset: Sudden Symptom Course: Improving Activities at Onset: Light Context: Other ([facility] [place] Pharmacy) <Avis Heller PA-C - Last Filed: 02/13/18 22:37> <Kenny Ann - Last Filed: 02/14/18 07:28> - General Chief Complaint: Shortness Of Breath Time Seen by Provider: 02/13/18 18:06 Past Medical History - Provider Review Nursing Documentation Reviewed: Yes - Infectious Disease Hx of Infectious Diseases: None - Tetanus Immunization Tetanus Immunization: Up to Date - Past Medical History Past Medical History: Non-Contributing - Cardiac Hx Congestive Heart Failure: Yes Hx Hypertension: Yes Hx Peripheral Edema: Yes - Pulmonary Hx Asthma: Yes Hx Bronchitis: Yes Hx Pulmonary Embolism: Yes - Neurological Hx Migraine: Yes Hx Seizures: Yes - HEENT Hx HEENT Disorder: No - Renal Hx Renal Disorder: No - Hematological/Oncological Hx Anemia: Yes - Integumentary Hx Dermatological Disorder: No - Musculoskeletal/Rheumatological Hx Arthritis: Yes - Gastrointestinal Hx Crohn's Disease: Yes Hx Gall Bladder Disease: Yes Hx Gastritis: Yes Hx Gastrointestinal Ulcer: Yes - Genitourinary/Gynecological Hx Sexually Transmitted Diseases: No - Psychiatric Hx Anxiety: Yes Hx Depression: Yes Hx Substance Use: No - Past Surgical History Past Surgical History: Non-Contributing - Surgical History Hx Cholecystectomy: Yes - Anesthesia Hx Anesthesia: Yes Hx Anesthesia Reactions: No Hx Malignant Hyperthermia: No - Suicidal Assessment Feels Threatened In Home Enviroment: No <Avis Heller PA-C - Last Filed: 02/13/18 22:37> Family/Social History - Physician Review Nursing Documentation Reviewed: Yes Family/Social History: Unknown Family HX Smoking Status: Former Smoker Hx Alcohol Use: No Hx Substance Use: No Substance used: RX MEDICATION Hx Substance Use Treatment: No <Avis Heller PA-C - Last Filed: 02/13/18 22:37> Allergies/Home Meds <Avis Heller PA-C - Last Filed: 02/13/18 22:37> <Kenny Ann - Last Filed: 02/14/18 07:28> Allergies/Adverse Reactions: Allergies aspirin Allergy (Verified 02/12/18 23:24) SHORTNESS OF BREATH benzethonium chloride Allergy (Verified 02/12/18 23:24) URTICARIA benzocaine Allergy (Verified 02/12/18 23:24) ITCHING broccoli Allergy (Verified 02/12/18 23:24) ITCHING haloperidol Allergy (Verified 02/12/18 23:24) VOMITING ketorolac Allergy (Verified 02/12/18 23:24) ANAPHYLAXIS lidocaine Allergy (Verified 02/12/18 23:24) ITCHING nitroglycerin Allergy (Verified 02/12/18 23:24) URTICARIA oxycodone Allergy (Verified 02/12/18 23:24) SHORTNESS OF BREATH pineapple Allergy (Verified 02/12/18 23:24) ITCHING trazodone Allergy (Verified 02/12/18 23:24) SWELLING ziprasidone [From Geodon] Allergy (Verified 02/12/18 23:24) SHORTNESS OF BREATH steroids Allergy (Uncoded 02/12/18 23:24) "heart flutters", swelling Home Medications: Home Meds Medication Instructions Recorded Confirmed Enoxaparin [Lovenox] 80 mg SC BID 12/18/16 02/14/18 HYDROmorphone [Dilaudid 2 mg Tab] 2 mg PO QID PRN 12/22/17 02/13/18 LORazepam [Ativan] 2 mg PO BID 12/22/17 02/14/18 RX: amLODIPine [Norvasc] 10 mg PO DAILY 12/22/17 02/14/18 Cyclobenzaprine HCl 10 PO BID 02/14/18 Losartan-Hctz 50-12.5 mg Tab PO DAILY 02/14/18 Review of Systems - Physician Review All systems were reviewed & negative as marked: Yes - Review of Systems Constitutional: absent: Fevers, Night Sweats Respiratory: absent: SOB Cardiovascular: absent: Chest Pain Gastrointestinal: absent: Diarrhea, Nausea, Vomiting Genitourinary Female: absent: Urine Output Changes Musculoskeletal: absent: Back Pain, Neck Pain Neurological: Headache (+slight headache), Seizure (+2 episodes today). absent: Dizziness <Avis Heller PA-C - Last Filed: 02/13/18 22:37> Physical Exam Vital Signs Reviewed: Yes Vital Signs Temp Pulse Resp Pulse Ox 02/13/18 18:10 98.9 F 109 H 19 99 Temperature: Afebrile Blood Pressure: Hypertensive Pulse: Regular Respiratory Rate: Normal Appearance: Positive for: Well-Appearing, Non-Toxic, Comfortable Pain Distress: None Mental Status: Positive for: Alert and Oriented X 3 - Systems Exam Head: Present: Atraumatic, Normocephalic Pupils: Present: PERRL Extroacular Muscles: Present: EOMI Conjunctiva: Present: Normal Mouth: Present: Moist Mucous Membranes Neck: Present: Normal Range of Motion. No: Meningeal Signs, Lymphadenopathy Respiratory/Chest: Present: Clear to Auscultation, Good Air Exchange. No: Respiratory Distress, Accessory Muscle Use Cardiovascular: Present: Regular Rate and Rhythm, Normal S1, S2. No: Murmurs Abdomen: No: Tenderness, Distention, Peritoneal Signs Back: Present: Normal Inspection Upper Extremity: Present: Normal Inspection, Normal ROM. No: Cyanosis, Edema Lower Extremity: Present: Normal Inspection, Normal ROM. No: Edema Neurological: Present: GCS=15, CN II-XII Intact, Speech Normal, Motor Func Grossly Intact, Normal Sensory Function Skin: Present: Warm, Dry, Normal Color. No: Rashes Psychiatric: Present: Alert, Oriented x 3, Normal Insight, Normal Concentration <Avis Heller PA-C - Last Filed: 02/13/18 22:37> Vital Signs Temp Pulse Resp BP Pulse Ox 02/13/18 22:28 98.9 F 110 H 19 142/59 L 96 02/13/18 20:31 176/106 H 02/13/18 18:10 98.9 F 109 H 19 99 <Kenny Ann - Last Filed: 02/14/18 07:28> Medical Decision Making ED Course and Treatment: 02/13/18 18:45 Impression: 62 year old female presenting to the emergency room for possible seizure vs near syncope. Plan: -- Head CT without contrast -- EKG -- Labs -- CBC -- Chest X-ray -- Norvasc -- Reassess and disposition Prior Visits: Notes and results from previous visits were reviewed. Patient was last seen in the emergency department on 02/12/18 for anxiety and chest pain and was discharged when symptoms improved. Progress Notes: 02/13/18 20:07 CT Head reviewed, shows: IMPRESSION: 1. There is mild generalized parenchymal atrophy noted as demonstrated by symmet rical dilatation of ventricles and sulci. 2. Mild chronic periventricular and subcortical microvascular disease is seen. 3. No acute intracranial pathology. Labs reviewed : wbc 11.5, K 3.5, trop (-), phenytoin 8 EKG : ST at 113 bpm, +T wave depressions noted to V4-V6 which is new compared to her EKG from yesterday. CXR : NAD Patient given dilantin 1 g IV. 02/13/18 22:09 Case d/w emergency medical service coordinator and with Dr. Muro, agree with plan for observation under the hospitalist service. On reevaluation, patient reports no headache, dizziness, CP or SOB. On exam, patient remains awake alert and oriented 3 in no acute distress, resting in bed comfortably. Repeat neuro exam shows no focal findings. - RAD Interpretation Radiology Orders: 02/13/18 18:50 CHEST PORTABLE [RAD] Stat 02/13/18 18:51 HEAD W/O CONTRAST [CT] Stat - Medication Orders Current Medication Orders: Amlodipine Besylate (Norvasc) 10 mg PO STAT STA Stop: 02/13/18 18:53 <Avis Heller PA-C - Last Filed: 02/13/18 22:37> - Lab Interpretations Lab Results: 02/13/18 20:38 02/13/18 20:38 Lab Results 02/13/18 20:38: Phenytoin 8 L 02/13/18 20:38: Sodium 141, Potassium 3.5 L, Chloride 103, Carbon Dioxide 30, Anion Gap 11, BUN 9, Creatinine 0.7, Est GFR ( Amer) > 60, Est GFR (Non- Af Amer) > 60, Random Glucose 112 H, Calcium 9.0, Magnesium 2.1, Total Bilirubin 0.6, AST 38 H, ALT 25, Alkaline Phosphatase 168 H D, Lactate Dehydrogenase 890 H, Total Creatine Kinase 320 H, CK-MB (CK-2) 1.3, CK-MB (CK-2) % Cancelled, Troponin I 0.02 D, Total Protein 8.3, Albumin 4.4, Globulin 4.0, Al bumin/Globulin Ratio 1.1 02/13/18 20:38: WBC 11.5 H D, RBC 4.10, Hgb 13.0, Hct 39.6, MCV 96.6, MCH 31.7, MCHC 32.8, RDW 14.3, Plt Count 159, MPV 11.1 H, Gran % 88.7 H, Lymph % (Auto) 7.2 L, [place] % (Auto) 3.9, Eos % (Auto) 0.1 L, Baso % (Auto) 0.1, Gran # 10.22 H, Lymph # (Auto) 0.8 L, [place] # (Auto) 0.5, Eos # (Auto) 0.0, Baso # (Auto) 0.01 - RAD Interpretation Radiology Orders: 02/13/18 18:50 CHEST PORTABLE [RAD] Stat 02/13/18 18:51 HEAD W/O CONTRAST [CT] Stat - Medication Orders Current Medication Orders: Amlodipine Besylate (Norvasc) 10 mg PO DAILY GENE Atorvastatin Calcium (Lipitor) 20 mg PO DIN GENE Clopidogrel Bisulfate (Plavix) 75 mg PO DAILY [facility] Enoxaparin Sodium (Lovenox) 80 mg SC BID GENE; Protocol Famotidine (Pepcid) 20 mg PO 1000,2200 [facility] Sodium Chloride (Sodium Chloride 0.9%) 1,000 mls @ 75 mls/hr IV .[id number] GENE Stop: 02/14/18 12:49 Lorazepam (Ativan) 2 mg PO BID GENE; Protocol Phenytoin Sodium (Dilantin) 100 mg PO QID GENE Discontinued Medications Amlodipine Besylate (Norvasc) 10 mg PO STAT STA Stop: 02/13/18 18:53 Last Admin: 02/13/18 20:31 Dose: 10 mg MAR Blood Pressure Document 02/13/18 20:31 OCS (Rec: 02/13/18 20:35 OCS [facility] [place]) Blood Pressure Blood Pressure (100/60-150/90) 176/106 Phenytoin 1,000 mg/ Sodium (Chloride) 250 mls @ 300 mls/hr IVPB STAT STA Stop: 02/13/18 22:37 Last Admin: 02/13/18 23:03 Dose: 300 mls/hr eMAR Start Stop Document 02/13/18 23:03 OCS (Rec: 02/13/18 23:03 OCS [id number]) Intravenous Solution Start Date 02/13/18 Start Time 23:03 End Date 02/13/18 End time 23:53 Total Infusion Time 50 Potassium Chloride (Potassium Chloride Oral Soln) 20 meq PO STAT STA Stop: 02/13/18 22:14 Last Admin: 02/13/18 23:02 Dose: 20 meq Potassium Chloride (Potassium Chloride Oral Soln) 40 meq PO ONCE ONE Stop: 02/14/18 07:14 <Kenny Ann - Last Filed: 02/14/18 07:28> - PA / FLOOR SANDING MACHINE OPERATOR / Resident Statement MD/DO has reviewed & agrees with the documentation as recorded. - Scribe Statement The provider has reviewed the documentation as recorded by the Barber Todd All medical record entries made by the Scribcara were at my direction and personally dictated by me. I have reviewed the chart and agree that the record accurately reflects my personal performance of the history, physical exam, medical decision making, and the department course for this patient. I have also personally directed, reviewed, and agree with the discharge instructions and disposition. <Avis Heller PA-C - Last Filed: 02/13/18 22:37> - PA / FLOOR SANDING MACHINE OPERATOR / Resident Statement /DO has reviewed & agrees with the documentation as recorded. <Kenny Ann - Last Filed: 02/14/18 07:28> Disposition/Present on Arrival - Present on Arrival Any Indicators Present on Arrival: Yes History of DVT/PE: Yes History of Uncontrolled Diabetes: No Urinary Catheter: No History of Decub. Ulcer: No History Surgical Site Infection Following: None - Disposition Have Diagnosis and Disposition been Completed?: Yes Disposition Time: 22:15 Patient Plan: Observation <Avis Heller PA-C - Last Filed: 02/13/18 22:37> <Kenny Ann - Last Filed: 02/14/18 07:28> - Disposition Diagnosis: Seizure disorder, Acute electrocardiogram changes Disposition: HOSPITALIZED Patient Problems: Current Active Problems Problem Status Onset Acute electrocardiogram changes Acute Seizure disorder Acute Condition: STABLE
[2018-02-13 21:15] LABS: BASO # 0.01 K/mm3 (0.0-2.0); BASO % 0.1 % (0.0-3.0); EOS % 0.1 % (1.5-5.0); GRAN # 10.22 (1.4-6.5); GRAN % 88.7 % (50.0-68.0); LYMPH # 0.8 (1.2-3.4); LYMPH % 7.2 % (22.0-35.0); MEAN CELL VOLUME 96.6 fl (80.0-105.0); MEAN CORPUSCULAR HEMOGLOBIN 31.7 pg (25.0-35.0); MEAN CORPUSCULAR HGB CONC 32.8 g/dl (31.0-37.0); MEAN PLATELET VOLUME 11.1 fl (7.0-11.0); MONO # 0.5 (0.1-0.6); MONO % 3.9 % (1.0-6.0); RBC 4.1 10^6/uL (3.5-6.1); RED CELL DISTRIBUTION WIDTH 14.3 % (11.5-14.5); WHITE BLOOD COUNT 11.5 10^3/uL (4.5-11.0)
[2018-02-13 21:41] LABS: ALB/GLOB RATIO 1.1 (1.1-1.8); ALBUMIN 4.4 g/dL (3.0-4.8); ALT/SGPT 25 U/L (7-56); AST/SGOT 38 U/L (14-36); BLOOD UREA NITROGEN 9 mg/dL (7-21); GFR NON-AFRICAN AMERICAN > 60; TROPONIN I 0.02 ng/mL
[2018-02-13 21:49] LABS: CK-MB 1.3 ng/mL (0.0-3.6)
[2018-02-13] MEDS ORDERED: Potassium Chloride 20 mEq/15 ml LIQ UD PO STA (22:13)
[2018-02-13] MEDS ORDERED: Sodium Chloride 0.9% 1,000 ML IV SCH (23:30)
--- NOTE | 2018-02-14 00:37 | CP.PCM.HP ---
<Juvenal Brooke - Last Filed: 02/14/18 05:21> History of Present Illness - History of Present Illness History of Present Illness: Juvenal Brooke DO PGY1 Internal Medicine - Medicine Service H&P 62F w/ PMH of Asthma, Anxiety, CVA, HTN, Epilepsy, DVT/PE (AC w/ Lovenox); presented to [facility] [place] [place] ED on 02/13 after having seizures earlier in day; also reporting chest pain at this time. Chan reported she had her first seizure on 02/14 AM when she was at her doctor's office; she was then transported to [facility] [place] where she signed out AMA. After that patient came to [facility] [place] [place] pharmacy where she had again had a seizure-like episode which was witnessed by pharmacist. As per ED documentation, patient became suddenly unresponsive, episode lasted <2 minutes. Patient reports she was confused shortly after episode, and had urinated on her self. Patient reports she refused medical care because she was not in her right mind after seizure. She reports she had not taken dilantin for 2-3 days, and reports that she is often noncompliant w/ her medications. She states she returned to ED to follow up her seizure; she is also reporting pressure like chest pain on the left side of chest; w/ radiation into her R neck . Does not report associated diaphoresis or sob. Remainder of 12 system ROS is negative at this time. PMD: [place] PMH: As above Pharmacy: [facility] [place] [place] Pharmacy Allergies: In chart Home Rx: Lovenox, Losartan-HCTZ 50-12.5 QD, Amlodipine 30 QD - as per patient's pharmacy bag other medications as per MAR unverified: Ativan 2mg PO BID, Dilantin 100mg BID, hydromorphone 2mg QID PRN, Esomeprazole 40 QD, Cyclobenzaprine 10 BID FamHX: Sister - heart transplant, Father jena, 2 brothers w/ CAD w/ stenting Present on Admission - Present on Admission Any Indicators Present on Admission: No Review of Systems - Review of Systems All systems: reviewed and no additional remarkable complaints except Review of Systems: As per HPI Past Patient History - Infectious Disease Hx of Infectious Diseases: None - Tetanus Immunizations Tetanus Immunization: Up to Date - Past Medical History & Family History Past Medical History?: Yes - Past Social History Smoking Status: Former Smoker - CARDIAC Hx Congestive Heart Failure: Yes Hx Hypertension: Yes Hx Peripheral Edema: Yes - PULMONARY Hx Asthma: Yes Hx Bronchitis: Yes Hx Pulmonary Embolism: Yes - NEUROLOGICAL Hx Migraine: Yes Hx Seizures: Yes - HEENT Hx HEENT Problems: No - RENAL Hx Chronic Kidney Disease: No - HEMATOLOGICAL/ONCOLOGICAL Hx Anemia: Yes - INTEGUMENTARY Hx Dermatological Problems: No - MUSCULOSKELETAL/RHEUMATOLOGICAL Hx Arthritis: Yes - GASTROINTESTINAL Hx Crohn's Disease: Yes Hx Gall Bladder Disease: Yes Hx Gastritis: Yes - GENITOURINARY/GYNECOLOGICAL Hx Sexually Transmitted Disorders: No - PSYCHIATRIC Hx Anxiety: Yes Hx Depression: Yes Hx Substance Use: No - SURGICAL HISTORY Hx Cholecystectomy: Yes - ANESTHESIA Hx Anesthesia: Yes Hx Anesthesia Reactions: No Hx Malignant Hyperthermia: No Meds Allergies/Adverse Reactions: Allergies Allergy/AdvReac Type Severity Reaction Status Date / Time aspirin Allergy SHORTNESS Verified 02/12/18 23:24 OF BREATH benzethonium chloride Allergy URTICARIA Verified 02/12/18 23:24 benzocaine Allergy ITCHING Verified 02/12/18 23:24 broccoli Allergy ITCHING Verified 02/12/18 23:24 haloperidol Allergy VOMITING Verified 02/12/18 23:24 ketorolac Allergy ANAPHYLAXIS Verified 02/12/18 23:24 lidocaine Allergy ITCHING Verified 02/12/18 23:24 nitroglycerin Allergy URTICARIA Verified 02/12/18 23:24 oxycodone Allergy SHORTNESS Verified 02/12/18 23:24 OF BREATH pineapple Allergy ITCHING Verified 02/12/18 23:24 trazodone Allergy SWELLING Verified 02/12/18 23:24 ziprasidone [From Geodon] Allergy SHORTNESS Verified 02/12/18 23:24 OF BREATH steroids Allergy "heart Uncoded 02/12/18 23:24 flutters", swelling Physical Exam - Constitutional Appears: Well, Non-toxic, No Acute Distress - Head Exam Head Exam: ATRAUMATIC, NORMOCEPHALIC - Eye Exam Eye Exam: EOMI, Normal appearance, PERRL. absent: Scleral icterus - ENT Exam ENT Exam: Mucous Membranes Moist, Normal Exam - Respiratory Exam Respiratory Exam: Clear to Auscultation Bilateral, NORMAL BREATHING PATTERN - Cardiovascular Exam Cardiovascular Exam: RRR, +S1, +S2 - GI/Abdominal Exam GI & Abdominal Exam: Normal Bowel Sounds, Soft. absent: Tenderness - Extremities Exam Extremities exam: Positive for: normal inspection. Negative for: pedal edema - Neurological Exam Neurological exam: Alert, Oriented x3 Additional comments: 5/5 Gross strength UE/LE BL - Psychiatric Exam Psychiatric exam: Normal Affect, Normal Mood - Skin Skin Exam: Dry, Intact, Warm Results - Vital Signs Recent Vital Signs: Last Vital Signs Temp 98.9 F 02/13/18 22:28 Pulse 110 H 02/13/18 22:28 Resp 19 02/13/18 22:28 BP 142/59 L 02/13/18 22:28 Pulse Ox 96 02/13/18 22:28 - Labs Result Diagrams: 02/13/18 20:38 02/13/18 20:38 Labs: Laboratory Results - last 24 hr 02/13/18 02/13/18 02/13/18 20:38 20:38 20:38 WBC 11.5 H D RBC 4.10 Hgb 13.0 Hct 39.6 MCV 96.6 MCH 31.7 MCHC 32.8 RDW 14.3 Plt Count 159 MPV 11.1 H Gran % 88.7 H Lymph % (Auto) 7.2 L Bay % (Auto) 3.9 Eos % (Auto) 0.1 L Baso % (Auto) 0.1 Gran # 10.22 H Lymph # (Auto) 0.8 L Bay # (Auto) 0.5 Eos # (Auto) 0.0 Baso # (Auto) 0.01 Sodium 141 Potassium 3.5 L Chloride 103 Carbon Dioxide 30 Anion Gap 11 BUN 9 Creatinine 0.7 Est GFR ( Amer) > 60 Est GFR (Non-Af Amer) > 60 Random Glucose 112 H Calcium 9.0 Magnesium 2.1 Total Bilirubin 0.6 AST 38 H ALT 25 Alkaline Phosphatase 168 H D Lactate Dehydrogenase 890 H Total Creatine Kinase 320 H CK-MB (CK-2) 1.3 CK-MB (CK-2) % Cancelled Troponin I 0.02 D Total Protein 8.3 Albumin 4.4 Globulin 4.0 Albumin/Globulin Ratio 1.1 Phenytoin 8 L Assessment & Plan - Assessment and Plan (Free Text) Assessment: 62F w/ PMH of Asthma, Anxiety, CVA, HTN, Epilepsy, DVT/PE (AC w/ Lovenox); presented to [facility] [place] [place] ED on 02/13 after having seizures earlier in day; also reporting chest pain at this time. Currently admitted for seizure workup as well as chest pain workup. Plan: ACS r/o: EKG shows ST-T Wave depressions in V4-V6; new compared to 02/13 EKG Follow up EKG in AM Stat plavix 75 in lieu of ASA81 due to allergy Stat Lipitor 20 Trop 0.02; Cont. trending Q6H TSH from previous visit wnl Lipid panel from november visit shows elevated total cholesterol Follow up echo in AM Cardiology Consulted appreciate reccs Seizure w/ Hx Epilepsy Pt. reports non compliance w/ antieplipetic rx Phenytoin level low on admission Will load w/ phenytoin 1gm Will Start phenytoin 100mg QD Will C/w Ativan 2mg PO BID Neurochecks Q4 / 24H Seizure Precautions Prelim CT Head w/o contrast: Generalized parenchymal Atrophy, Chronic Microvascular changes Patient reports she does not have a neurologist Neurology Consulted, Appreciate Reccs Hx HTN Amlodipine 10 QD Hx DVT/PE C/w therapeutic lovenox - 80SC BID DVT/ GI PPX: Lovenox as above/ Pepcid 20 BID Patient was seen, examined, discussed w/ attending Dr. Jina BROOKE DO PGY1 INTERNAL MEDICINE [facility]IGGER [facility]ISAN - Date & Time Date: 02/14/18 Time: 05:40 <Benton Muro - Last Filed: 02/14/18 06:01> Results - Vital Signs Recent Vital Signs: Last Vital Signs Temp 98.9 F 02/13/18 23:27 Pulse 110 H 02/13/18 23:27 Resp 19 02/14/18 00:00 BP 142/59 L 02/13/18 23:27 Pulse Ox 96 02/13/18 23:27 - Labs Result Diagrams: 02/13/18 20:38 02/13/18 20:38 Labs: Laboratory Results - last 24 hr 02/13/18 02/13/18 02/13/18 20:38 20:38 20:38 WBC 11.5 H D RBC 4.10 Hgb 13.0 Hct 39.6 MCV 96.6 MCH 31.7 MCHC 32.8 RDW 14.3 Plt Count 159 MPV 11.1 H Gran % 88.7 H Lymph % (Auto) 7.2 L Bay % (Auto) 3.9 Eos % (Auto) 0.1 L Baso % (Auto) 0.1 Gran # 10.22 H Lymph # (Auto) 0.8 L Bay # (Auto) 0.5 Eos # (Auto) 0.0 Baso # (Auto) 0.01 Sodium 141 Potassium 3.5 L Chloride 103 Carbon Dioxide 30 Anion Gap 11 BUN 9 Creatinine 0.7 Est GFR ( Amer) > 60 Est GFR (Non-Af Amer) > 60 Random Glucose 112 H Calcium 9.0 Magnesium 2.1 Total Bilirubin 0.6 AST 38 H ALT 25 Alkaline Phosphatase 168 H D Lactate Dehydrogenase 890 H Total Creatine Kinase 320 H CK-MB (CK-2) 1.3 CK-MB (CK-2) % Cancelled Troponin I 0.02 D Total Protein 8.3 Albumin 4.4 Globulin 4.0 Albumin/Globulin Ratio 1.1 Phenytoin 8 L Attending/Attestation - Attestation I have personally seen and examined this patient.: Yes I have fully participated in the care of the patient.: Yes I have reviewed all pertinent clinical information: Yes
[2018-02-14 07:04] LABS: CALCIUM 8.4 mg/dL (8.4-10.5)
[2018-02-14] MEDS ORDERED: Potassium Chloride 40 mEq/30 ml LIQ UD PO ONE (07:13)
[2018-02-14 07:19] LABS: BASO # 0.01 K/mm3 (0.0-2.0); BASO % 0.1 % (0.0-3.0); EOS % 0.3 % (1.5-5.0); GRAN # 7.31 (1.4-6.5); GRAN % 71.7 % (50.0-68.0); HEMOGLOBIN 11.6 g/dL (12.0-16.0); LYMPH # 2.1 (1.2-3.4); LYMPH % 20.2 % (22.0-35.0); MEAN CELL VOLUME 96.5 fl (80.0-105.0); MEAN CORPUSCULAR HEMOGLOBIN 31.4 pg (25.0-35.0); MEAN CORPUSCULAR HGB CONC 32.5 g/dl (31.0-37.0); MEAN PLATELET VOLUME 10.5 fl (7.0-11.0); MONO # 0.8 (0.1-0.6); MONO % 7.7 % (1.0-6.0); RBC 3.7 10^6/uL (3.5-6.1); RED CELL DISTRIBUTION WIDTH 14.4 % (11.5-14.5); WHITE BLOOD COUNT 10.2 10^3/uL (4.5-11.0)
[2018-02-14 07:21] LABS: ALB/GLOB RATIO 1.1 (1.1-1.8); ALBUMIN 3.6 g/dL (3.0-4.8); ALT/SGPT 31 U/L (7-56); AST/SGOT 28 U/L (14-36); BLOOD UREA NITROGEN 11 mg/dL (7-21); GFR NON-AFRICAN AMERICAN > 60
[2018-02-14 08:12] VITALS: RESP 20
--- NOTE | 2018-02-14 08:23 | RAD ---
Date of service: 02/13/2018 HISTORY: possible seizure COMPARISON: 01/19/2018 FINDINGS: LUNGS: No active pulmonary disease. PLEURA: No significant pleural effusion identified, no pneumothorax apparent. CARDIOVASCULAR: No aortic atherosclerotic calcification present. Normal cardiac size. No pulmonary vascular congestion. OSSEOUS STRUCTURES: No significant abnormalities. VISUALIZED UPPER ABDOMEN: Normal. OTHER FINDINGS: None. IMPRESSION: No active disease.
--- NOTE | 2018-02-14 08:49 | CT ---
Date of service: 02/13/2018 PROCEDURE: CT HEAD WITHOUT CONTRAST. HISTORY: seizure COMPARISON: 01/19/2018 TECHNIQUE: Axial computed tomography images were obtained through the head/brain without intravenous contrast. Radiation dose: Total exam DLP = 1162.33 mGy-cm. This CT exam was performed using one or more of the following dose reduction techniques: Automated exposure control, adjustment of the mA and/or kV according to patient size, and/or use of iterative reconstruction technique. FINDINGS: HEMORRHAGE: No intracranial hemorrhage. BRAIN: No mass effect or edema. Mild atrophy. Minimal microvascular changes. VENTRICLES: Unremarkable. No hydrocephalus. CALVARIUM: Unremarkable. PARANASAL SINUSES: Unremarkable as visualized. No significant inflammatory changes. MASTOID AIR CELLS: Unremarkable as visualized. No inflammatory changes. OTHER FINDINGS: The report concurs with the preliminary [facility] report IMPRESSION: No acute intracranial findings
[2018-02-14] MEDS: Enoxaparin 80 mg Syringe SC SCH ×2 (09:36→17:43)
--- NOTE | 2018-02-14 10:09 | CP.PCM.PN ---
Subjective - Date & Time of Evaluation Date of Evaluation: 02/14/18 Time of Evaluation: 10:09 Objective - Vital Signs/Intake and Output Vital Signs (last 24 hours): Temp Pulse Resp BP Pulse Ox 99 F 89 20 115/58 L 96 02/14/18 08:10 02/14/18 08:10 02/14/18 08:10 02/14/18 09:37 02/14/18 08:10 - Medications Medications: Current Medications Amlodipine Besylate (Norvasc) 10 mg PO DAILY [facility] Last Admin: 02/14/18 09:37 Dose: 10 mg Atorvastatin Calcium (Lipitor) 20 mg PO DIN [facility] Clopidogrel Bisulfate (Plavix) 75 mg PO DAILY [facility] Last Admin: 02/14/18 09:37 Dose: 75 mg Enoxaparin Sodium (Lovenox) 80 mg SC BID [facility]; Protocol Last Admin: 02/14/18 09:36 Dose: 80 mg Famotidine (Pepcid) 20 mg PO 1000,2200 [facility] Last Admin: 02/14/18 09:36 Dose: 20 mg Sodium Chloride (Sodium Chloride 0.9%) 1,000 mls @ 75 mls/hr IV .[id number] [facility] Stop: 02/14/18 12:49 Lorazepam (Ativan) 2 mg PO BID [facility]; Protocol Last Admin: 02/14/18 09:36 Dose: 2 mg Phenytoin Sodium (Dilantin) 100 mg PO QID [facility] Last Admin: 02/14/18 09:36 Dose: 100 mg - Labs Labs: 02/14/18 05:15 02/14/18 05:15
[2018-02-14] MEDS ORDERED: levETIRAcetam 1000mg/100ml NS 100 ML IV ONE ×2 (13:10)
--- NOTE | 2018-02-14 13:16 | CP.PCM.CON ---
History of Present Illness - History of Present Illness History of Present Illness: Neurology Consultation Note: Mrs. Abreu is a 62-year-old woman, who was referred to me by Dr. Muro, with a past medical history of Asthma, Anxiety, CVA, HTN, Epilepsy, DVT/PE, who has had several episodes of seizures due to non-compliance with dilantin. She was treated in the ED and is currently at baseline. Non-contrast CT scan of the head did not show any acute findings. Review of Systems - Constitutional Constitutional: As Per HPI - EENT Eyes: absent: As Per HPI, Blind Spots, Blurred Vision, Change in Vision, De creased Night Vision, Diplopia, Discharge, Dry Eye, Exophthalmos, Floaters, Irritation, Itchy Eyes, Loss of Peripheral Vision, Pain, Photophobia, Requires Corrective Lenses, Sees Flashes, Spots in Vision, Tunnel Vision, Other Visual Disturbances, Loss of Vision, Other Ears: absent: As Per HPI, Decreased Hearing, Ear Discharge, Ear Pain, Tinnitus, Abnormal Hearing, Disequilibrium, Dizziness, Other Nose/Mouth/Throat: absent: As Per HPI, Epistaxis, Nasal Congestion, Nasal Discharge, Nasal Obstruction, Nasal Trauma, Nose Pain, Post Nasal Drip, Sinus Pain, Sinus Pressure, Bleeding Gums, Change in Voice, Dental Pain, Dry Mouth, Dysphagia, Halitosis, Hoarsness, Lip Swelling, Mouth Lesions, Mouth Pain, Odynophagia, Sore Throat, Throat Swelling, Tongue Swelling, Facial Pain, Neck Pain, Neck Mass, Other - Breasts Breasts: absent: As Per HPI, Change in Shape, Mass, Pain, Nipple Discharge, Nipple Inversion, Skin Changes, Swelling, Other - Cardiovascular Cardiovascular: absent: As Per HPI, Acrocyanosis, Chest Pain, Chest Pain at Rest, Chest Pain with Activity, Claudication, Diaphoresis, Dyspnea, Dyspnea on Exertion, Edema, Irregular Heart Rhythm, Pain Radiating to Arm/Neck/Jaw, Leg Edema, Leg Ulcers, Lightheadedness, Orthopnea, Palpitations, Paroxysmal Nocturnal Dyspnea, Pedal Edema, Radiating Pain, Rapid Heart Rate, Slow Heart Rate, Syncope, Other - Respiratory Respiratory: absent: As Per HPI, Cough, Dyspnea, Hemoptysis, Dyspnea on Exertion, Wheezing, Snoring, Stridor, Pain on Inspiration, Chest Congestion, Excessive Mucous Production, Change in Mucous Color, Pain with Coughing, Other - Gastrointestinal Gastrointestinal: absent: As Per HPI, Abdominal Pain, Belching, Bloating, Change in Bowel Habits, Change in Stool Character, Coffee Ground Emesis, Constipation, Cramping, Diarrhea, Dyspepsia, Dysphagia, Early Satiety, Excessive Flatus, Fecal Incontinence, Heartburn, Hematemesis, Hematochezia, Loose Stools, Melena, Nausea, Odynophagia, Temesmus, Vomiting, Other - Reproductive: Female Reproductive:Female: absent: As Per HPI, Amenorrhea, Amenorrhea/ Control, Currently Menstual, Cycle <21 Days, Cycle >35 Days, Cycle Variable, Menses 1-7 Days, Menses >/= 8 Days, Menses Variable, Cycle > 4 Weeks Between, No Menses for 6 Months, Heavy Menses, Light Menses, Normal Menses, Spotting Between Cycles, S/P Hysterectomy, Menopausal, Post Menopausal, Premenarche, Abnormal Vaginal Bleeding, Dysmenorrhea, Dyspareunia, Genital Lesions, Genital Pruritis, Pelvic Pain, Prolapse Symptoms, Sexual Dysfunction, Vaginal Discharge, Vaginal Dryness, Vaginal Odor, Vaginal Pruritis, Other - Menstruation Menstruation: absent: As Per HPI, Amenorrhea, Amenorrhea/ Control, Currently Menstual, Cycle <21 Days, Cycle >35 Days, Cycle Variable, Menses 1-7 Days, Menses >/= 8 Days, Menses Variable, Cycle > 4 Weeks Between, No Menses for 6 Months, Heavy Menses, Light Menses, Normal Menses, Spotting Between Cycles, S/P Hysterectomy, Menopausal, Post Menopausal, Premenarche, Abnormal Vaginal Bleeding, Dysmenorrhea, Other - Musculoskeletal Musculoskeletal: absent: As Per HPI, Abnormal Gait, Arthralgias, Atrophy, Back Pain, Deformity, Joint Swelling, Limited Range of Motion, Loss of Height, Muscle Cramps, Muscle Weakness, Myalgias, Neck Pain, Numbness, Radiating Pain into Limb, Stiffness, Tingling, Other - Integumentary Integumentary: absent: As Per HPI, Acne, Alopecia, Bleeding Lesions, Change in Hair, Change in Nails, Change in Pigmentation, Changing Lesions, Dry Skin, Erythema, Furuncle, Hirsutism, Lesions, New Lesions, Non-Healing Lesions, Photosensitivity, Pruritus, Rash, Skin Pain, Skin Ulcer, Sores, Striae, Swelli ng, Unusual Bruising, Wounds, Jaundice, Other - Neurological Neurological: As Per HPI - Psychiatric Psychiatric: absent: As Per HPI, Abnormal Sleep Pattern, Anhedonia, Anxiety, Auditory Hallucinations, Behavioral Changes, Change in Appetite, Change in Libido, Confusion, Depression, Difficulty Concentrating, Hallucinations, Homicidal Ideation, Hopelessness, Irritability, Memory Loss, Mood Swings, Panic Attacks, Paranoia, Suicidal Ideation, Visual Hallucinations, Tactile Hallucinations, Other - Endocrine Endocrine: absent: As Per HPI, Change in Body Appearance, Change in Libido, Cold Intolorance, Deepening of Voice, Excessive Sweating, Fatigue, Flushing, Heat Intolorance, Increase in Ring/Shoe/Hat Size, Palpitations, Polydipsia, Polyphagia, Polyuria, Other - Hematologic/Lymphatic Hematologic: absent: As Per HPI, Easy Bleeding, Easy Bruising, Lymphadenopathy, Other Past Patient History - Infectious Disease Hx of Infectious Diseases: None - Tetanus Immunizations Tetanus Immunization: Up to Date - Past Medical History & Family History Past Medical History?: Yes - Past Social History Smoking Status: Former Smoker - CARDIAC Hx Congestive Heart Failure: Yes Hx Hypertension: Yes Hx Peripheral Edema: Yes - PULMONARY Hx Asthma: Yes Hx Bronchitis: Yes Hx Pulmonary Embolism: Yes - NEUROLOGICAL Hx Migraine: Yes Hx Seizures: Yes - HEENT Hx HEENT Problems: No - RENAL Hx Chronic Kidney Disease: No - HEMATOLOGICAL/ONCOLOGICAL Hx Anemia: Yes - INTEGUMENTARY Hx Dermatological Problems: No - MUSCULOSKELETAL/RHEUMATOLOGICAL Hx Arthritis: Yes - GASTROINTESTINAL Hx Crohn's Disease: Yes Hx Gall Bladder Disease: Yes Hx Gastritis: Yes - GENITOURINARY/GYNECOLOGICAL Hx Sexually Transmitted Disorders: No - PSYCHIATRIC Hx Anxiety: Yes Hx Depression: Yes Hx Substance Use: No - SURGICAL HISTORY Hx Cholecystectomy: Yes - ANESTHESIA Hx Anesthesia: Yes Hx Anesthesia Reactions: No Hx Malignant Hyperthermia: No Meds Allergies/Adverse Reactions: Allergies Allergy/AdvReac Type Severity Reaction Status Date / Time aspirin Allergy SHORTNESS Verified 02/12/18 23:24 OF BREATH benzethonium chloride Allergy URTICARIA Verified 02/12/18 23:24 benzocaine Allergy ITCHING Verified 02/12/18 23:24 broccoli Allergy ITCHING Verified 02/12/18 23:24 haloperidol Allergy VOMITING Verified 02/12/18 23:24 ketorolac Allergy ANAPHYLAXIS Verified 02/12/18 23:24 lidocaine Allergy ITCHING Verified 02/12/18 23:24 nitroglycerin Allergy URTICARIA Verified 02/12/18 23:24 oxycodone Allergy SHORTNESS Verified 02/12/18 23:24 OF BREATH pineapple Allergy ITCHING Verified 02/12/18 23:24 trazodone Allergy SWELLING Verified 02/12/18 23:24 ziprasidone [From Geodon] Allergy SHORTNESS Verified 02/12/18 23:24 OF BREATH steroids Allergy "heart Uncoded 02/12/18 23:24 flutters", swelling - Medications Medications: Current Medications Amlodipine Besylate (Norvasc) 10 mg PO DAILY [facility] Last Admin: 02/14/18 09:37 Dose: 10 mg Atorvastatin Calcium (Lipitor) 20 mg PO [facility] Clopidogrel Bisulfate (Plavix) 75 mg PO DAILY [facility] Last Admin: 02/14/18 09:37 Dose: 75 mg Enoxaparin Sodium (Lovenox) 80 mg SC BID [facility]; Protocol Last Admin: 02/14/18 09:36 Dose: 80 mg Famotidine (Pepcid) 20 mg PO 1000,2200 [facility] Last Admin: 02/14/18 09:36 Dose: 20 mg Levetiracetam (Keppra 1000mg/100ml Ns) 100 mls @ 440 mls/hr IV ONCE ONE Stop: 02/14/18 13:23 Lorazepam (Ativan) 2 mg PO BID [facility]; Protocol Last Admin: 02/14/18 09:36 Dose: 2 mg Phenytoin Sodium (Dilantin) 100 mg PO QID [facility] Last Admin: 02/14/18 09:36 Dose: 100 mg Physical Exam - Constitutional Appears: Well - Head Exam Head Exam: ATRAUMATIC, NORMAL INSPECTION, NORMOCEPHALIC - Eye Exam Eye Exam: EOMI, Normal appearance, PERRL - ENT Exam ENT Exam: Mucous Membranes Moist, Normal Exam - Neck Exam Neck exam: Positive for: Normal Inspection - Respiratory Exam Respiratory Exam: Clear to Auscultation Bilateral, NORMAL BREATHING PATTERN - Cardiovascular Exam Cardiovascular Exam: REGULAR RHYTHM, +S1, +S2 - GI/Abdominal Exam GI & Abdominal Exam: Normal Bowel Sounds, Soft. absent: Tenderness - Rectal Exam Rectal Exam: Deferred - Extremities Exam Extremities exam: Positive for: normal inspection - Back Exam Back exam: NORMAL INSPECTION - Neurological Exam Neurological exam: Alert, CN II-XII Intact, Normal Gait, Oriented x3, Reflexes Normal - Psychiatric Exam Psychiatric exam: Normal Affect, Normal Mood - Skin Skin Exam: Dry, Intact, Normal Color, Warm Results - Vital Signs Recent Vital Signs: Last Vital Signs Temp 99 F 02/14/18 08:10 Pulse 89 02/14/18 08:10 Resp 20 02/14/18 08:10 BP 115/58 L 02/14/18 09:37 Pulse Ox 96 02/14/18 08:10 - Labs Result Diagrams: 02/14/18 05:15 02/14/18 05:15 Labs: Laboratory Results - last 24 hr 02/13/18 02/13/18 02/13/18 20:38 20:38 20:38 WBC 11.5 H D RBC 4.10 Hgb 13.0 Hct 39.6 MCV 96.6 MCH 31.7 MCHC 32.8 RDW 14.3 Plt Count 159 MPV 11.1 H Gran % 88.7 H Lymph % (Auto) 7.2 L [place]ayer % (Auto) 3.9 Eos % (Auto) 0.1 L Baso % (Auto) 0.1 Gran # 10.22 H Lymph # (Auto) 0.8 L [place] # (Auto) 0.5 Eos # (Auto) 0.0 Baso # (Auto) 0.01 Sodium 141 Potassium 3.5 L Chloride 103 Carbon Dioxide 30 Anion Gap 11 BUN 9 Creatinine 0.7 Est GFR ( Amer) > 60 Est GFR (Non-Af Amer) > 60 Random Glucose 112 H Calcium 9.0 Phosphorus Magnesium 2.1 Total Bilirubin 0.6 AST 38 H ALT 25 Alkaline Phosphatase 168 H D Lactate Dehydrogenase 890 H Total Creatine Kinase 320 H CK-MB (CK-2) 1.3 CK-MB (CK-2) % Cancelled Troponin I 0.02 D Total Protein 8.3 Albumin 4.4 Globulin 4.0 Albumin/Globulin Ratio 1.1 Phenytoin 8 L 02/14/18 02/14/18 05:15 05:15 WBC 10.2 RBC 3.70 Hgb 11.6 L Hct 35.7 L MCV 96.5 MCH 31.4 MCHC 32.5 RDW 14.4 Plt Count 136 MPV 10.5 Gran % 71.7 H Lymph % (Auto) 20.2 L [place]ayer % (Auto) 7.7 H Eos % (Auto) 0.3 L Baso % (Auto) 0.1 Gran # 7.31 H Lymph # (Auto) 2.1 [place]ayer # (Auto) 0.8 H Eos # (Auto) 0.0 Baso # (Auto) 0.01 Sodium 139 Potassium 3.3 L Chloride 107 Carbon Dioxide 27 Anion Gap 8 L BUN 11 Creatinine 0.7 Est GFR ( Amer) > 60 Est GFR (Non-Af Amer) > 60 Random Glucose 89 Calcium 8.4 Phosphorus 3.0 Magnesium 2.1 Total Bilirubin 0.6 AST 28 ALT 31 Alkaline Phosphatase 135 H Lactate Dehydrogenase Total Creatine Kinase CK-MB (CK-2) CK-MB (CK-2) % Troponin I Total Protein 6.9 Albumin 3.6 Globulin 3.3 Albumin/Globulin Ratio 1.1 Phenytoin Assessment & Plan (1) Seizure disorder Assessment and Plan: Since the patient has a difficult time remaining compliant with dilantin and she is on multiple medications for other medical co-morbidities, I will load her with Keppra 1000 mg IV now, and continue 500 mg BID. Her serum level of dilantin was 8, so it is still subtherapeutic. We can stop it and continue only Keppra. If she is stable and has no more seizures on Keppra, she can be discharged home to follow up with neurology as an outpatient. Thank you. Status: Acute
--- NOTE | 2018-02-14 13:29 | CARD ---
APPROVED REPORT Date of service: 02/14/2018 EXAM: Two-dimensional and M-mode echocardiogram with Doppler and color Doppler. INDICATION EKG CHANGES 2D DIMENSIONS Left Atrium (2D)4.1 (1.6-4.0cm)IVSd1.1 (0.7-1.1cm) LVDd4.8 (3.9-5.9cm)PWd1.1 (0.7-1.1cm) LVDs3.2 (2.5-4.0cm)FS (%) 32.4 % LVEF (%)60.7 (>50%) M-Mode DIMENSIONS Aortic Root2.50 (2.2-3.7cm)Aortic Cusp Exc.1.90 (1.5-2.0cm) Aortic Valve AoV Peak Vugtioni720.0cm/Negrita Peak GR.14mmHg Mitral Valve MV E Nxixkjzm60.1cm/sMV A Uqtwugxo34.5cm/sE/A ratio0.9 TDI Lateral E' Peak V11.40cm/sMedial E' Peak V10.40cm/sE/Lateral E'6.2 E/Medial E'6.8 Tricuspid Valve TR Peak Mhnzmdvm176du/sRAP FZCAMGDX24gtBzMR Peak Gr.29mmHg [id number] LEFT VENTRICLE The left ventricle is normal size. There is normal left ventricular wall thickness. The left ventricular function is normal. The left ventricular ejection fraction is within the normal range. There is normal LV segmental wall motion. Transmitral Doppler flow pattern is Grade I-abnormal relaxation pattern. RIGHT VENTRICLE The right ventricle is normal size. There is normal right ventricular wall thickness. The right ventricular systolic function is normal. ATRIA The left atrium is borderline dilated. The right atrium size is normal. AORTIC VALVE The aortic valve is not well visualized. There is trace aortic regurgitation. There is no aortic valvular stenosis. MITRAL VALVE The mitral valve is not well visualized. Mitral regurgitation is trace. There is no mitral valve stenosis. TRICUSPID VALVE There is mild tricuspid regurgitation. There is mild pulmonary hypertension. GREAT VESSELS The aortic root is normal in size. PERICARDIAL EFFUSION There is no pericardial effusion. <Conclusion> The left ventricle is normal size. There is normal left ventricular wall thickness. The left ventricular function is normal. The left ventricular ejection fraction is within the normal range. There is normal LV segmental wall motion. Transmitral Doppler flow pattern is Grade I-abnormal relaxation pattern. There is mild tricuspid regurgitation. There is mild pulmonary hypertension.
--- NOTE | 2018-02-14 15:38 | CARD ---
APPROVED REPORT Date of service: 02/13/2018 EKG Measurement Heart [id number] <Conclusion> Sinus tachycardia ST & T wave abnormality, consider inferolateral ischemia Abnormal ECG
[2018-02-14] MEDS ORDERED: Lidocaine 5% Patch TD PRN (15:44)
--- NOTE | 2018-02-14 17:22 | CON ---
DATE OF CONSULTATION: 02/14/2018 REASON FOR CONSULTATION: Chest discomfort. HISTORY OF PRESENT ILLNESS: The patient is a 62-year-old -[place] female who has a history of hypertension, diabetes mellitus, history of DVT and pulmonary embolism in the past, diagnosis was made 2-1/2 years ago. According to her, pulmonary embolism was documented twice. The patient was supposed to undergo an IVC filter, but it was postponed for unclear reasons. The patient is unaware of any specific coagulation factor deficiency. The patient has a history of colon cancer, underwent colectomy in 2013 at [facility], followed by chemotherapy and radiation therapy. She was referred from her primary care physician's office because of possible of seizure activity. According to ER documentation, the patient was picking up an Ativan prescription at [facility] pharmacy when another seizure occurred and the patient reported loss of consciousness. However, the patient was witnessed to have been unresponsive. Rapid Response was called, and upon arrival of the team, the patient refused the care. There was no reported fall episode. PAST MEDICAL HISTORY: History of seizure disorder, colon cancer, hypertension, diabetes mellitus as per the patient. SOCIAL HISTORY: Nonsmoker, nondrinker. MEDICATIONS: Ativan 2 mg p.o. twice a day, Dilantin 100 mg 4 times a day, Lipitor 20 mg once a day, Lovenox 80 mg subcutaneously twice a day, Norvasc 10 mg once a day, Plavix 75 mg once a day, normal saline 65 mL/h. ALLERGIES: THE PATIENT IS ALLERGIC TO ASPIRIN. REVIEW OF SYSTEMS: No nausea, vomiting, fever or chills. PHYSICAL EXAMINATION: GENERAL: The patient is a middle-aged female who does appear to be in acute distress. VITAL SIGNS: Blood pressure 115/58, heart rate 89, temperature 99, respirations 20. HEENT: Normocephalic. CHEST: Clear. HEART: S1 and S2, regular. ABDOMEN: Soft. EXTREMITIES: 1+ pitting edema. LABORATORY DATA: CBC: Hemoglobin and hematocrit 11.6 and 35.7. White count and platelet count are within normal limits. Dilantin level is 8. SMA-7: Sodium 139, potassium 3.3, chloride 107, CO2 of 27, glucose 89, BUN 11, and creatinine 0.7. One set of troponin is 0.02. EKG revealed sinus tachycardia at a rate of 113, consistent with inferolateral ischemic ST-T wave changes. ASSESSMENT: 1. Seizure activity. 2. Inferolateral ischemic EKG changes, rule out myocardial infarction. 3. History of pulmonary embolism. 4. Anxiety disorder. 5. History of colon cancer, status post colectomy, followed by chemotherapy and radiation therapy in 2013. RECOMMENDATIONS: Continue subcutaneous Lovenox at 80 mg once a day, Plavix 75 mg once a day, Dilantin 100 mg 4 times a day. I did review the head CT scan that was performed on admission and revealed no acute intracranial abnormality. Obtain PT/PTT and INR and schedule the patient for an echocardiogram and CT angio of the chest. Anupam Subramanian MD
[2018-02-14] MEDS: Lidocaine 5% Patch TD SCH (19:37)
[2018-02-15] MEDS: Enoxaparin 80 mg Syringe SC SCH ×2 (10:12→17:03)
[2018-02-15] MEDS: Lidocaine 5% Patch TD SCH ×2 (10:13→10:19)
--- NOTE | 2018-02-15 13:49 | CP.PCM.PN ---
<Carlos Carrasquillo - Last Filed: 02/15/18 14:39> Subjective - Date & Time of Evaluation Date of Evaluation: 02/15/18 Time of Evaluation: 09:15 - Subjective Subjective: PGY-1 Medicine Progress Note for Dr. Pugh Patient seen and examined sitting by bedside this AM. No acute overnight events reported. No focal neurological deficits noted. Seen ambulating steadily. Objective - Vital Signs/Intake and Output Vital Signs (last 24 hours): Temp Pulse Resp BP Pulse Ox 98 F 85 20 110/61 96 02/15/18 08:28 02/15/18 08:28 02/15/18 08:28 02/15/18 10:12 02/15/18 08:28 Intake and Output: 02/15/18 02/15/18 06:59 18:59 Intake Total Output Total Balance - Medications Medications: Current Medications Acetaminophen (Tylenol 325mg Tab) 650 mg PO Q6H PRN PRN Reason: Pain, Mild (1-3) Amlodipine Besylate (Norvasc) 10 mg PO DAILY [facility] Last Admin: 02/15/18 10:12 Dose: 10 mg Atorvastatin Calcium (Lipitor) 20 mg PO DIN [facility] Last Admin: 02/14/18 17:42 Dose: 20 mg Clopidogrel Bisulfate (Plavix) 75 mg PO DAILY [facility] Last Admin: 02/15/18 10:12 Dose: 75 mg Enoxaparin Sodium (Lovenox) 80 mg SC BID [facility]; Protocol Last Admin: 02/15/18 10:12 Dose: 80 mg Famotidine (Pepcid) 20 mg PO 1000,2200 [facility] Last Admin: 02/15/18 10:12 Dose: 20 mg Levetiracetam (Keppra) 500 mg PO Q12 [facility] Last Admin: 02/15/18 10:12 Dose: 500 mg Lidocaine (Lidoderm) 1 ea TD DAILY [facility] Last Admin: 02/15/18 10:19 Dose: Not Given Lorazepam (Ativan) 2 mg PO BID [facility]; Protocol Last Admin: 02/15/18 10:12 Dose: 2 mg - Labs Labs: 02/14/18 05:15 02/14/18 05:15 - Constitutional Appears: Non-toxic, No Acute Distress - Head Exam Head Exam: ATRAUMATIC, NORMAL INSPECTION, NORMOCEPHALIC - Eye Exam Eye Exam: EOMI, Normal appearance - ENT Exam ENT Exam: Mucous Membranes Moist, Normal Exam - Neck Exam Neck Exam: Full ROM, Normal Inspection - Cardiovascular Exam Cardiovascular Exam: REGULAR RHYTHM, +S1, +S2 - GI/Abdominal Exam GI & Abdominal Exam: Soft, Normal Bowel Sounds. absent: Distended, Firm, Guarding, Rigid, Tenderness, Organomegaly, Rebound - Extremities Exam Extremities Exam: Full ROM, Normal Capillary Refill, Normal Inspection. absent: Calf Tenderness, Pedal Edema - Back Exam Back Exam: NORMAL INSPECTION - Neurological Exam Neurological Exam: Alert, Awake, CN II-XII Intact, Normal Gait, Oriented x3 - Psychiatric Exam Psychiatric exam: Normal Affect, Normal Mood - Skin Skin Exam: Dry, Intact, Normal Color, Warm Assessment and Plan - Assessment and Plan (Free Text) Assessment: 62 yo F with pmhx of Asthma, Anxiety, CVA, HTN, Epilepsy, DVT/PE, who has had several episodes of seizures due to non-compliance with dilantin. Non-contrast CT scan of the head did not show any acute findings. Plan: Seizure w/ Hx Epilepsy --pt has hx of seizures due to noncomplaince with dilantin --Phenytoin level low on admission --neurochecks q4 --seizure precautions --CT head w/o contrast: no acute intracranial findings --Neurology recs (Dr. Zhao) appreciated -Keppra 500 mg PO BID -Her serum level of dilantin was 8, so it is still subtherapeutic. We can stop it and continue only Keppra. -If she is stable and has no more seizures on Keppra, she can be discharged home to follow up with neurology as an outpatient. --Medications -Ativan 2 mg PO BID -Keppra 500 mg PO BID Acute EKG changes --EKG on admission showed ST-T wave depressions in V4-V6; new compared to 02/13 EKG --trops negative x 3 --TSH from previous visit wnl --Echo (02/13): EF 60.7%, mild tricuspid regurgitation, mild pulmonary HTN --Cardiology recs (Dr. Subramanian) appreciated -f/u echo, CTA -f/u PT/INR --Medications -plavix in lieu of ASA due to allergy -lipitor HTN --Amlodipine 10 mg PO Daily PPx, Diet, Disposition --DVT: lovenox --GI: pepcid --Diet: HHD Case discussed with Dr. Lexy Carrasquillo DO, PGY-1 <Patria Pugh - Last Filed: 02/15/18 18:13> Objective - Vital Signs/Intake and Output Vital Signs (last 24 hours): Temp Pulse Resp BP Pulse Ox 98.3 F 97 H 20 137/74 100 02/15/18 17:20 02/15/18 17:20 02/15/18 17:20 02/15/18 17:20 02/15/18 17:20 Intake and Output: 02/15/18 02/15/18 06:59 18:59 Intake Total Output Total Balance - Medications Medications: Current Medications Acetaminophen (Tylenol 325mg Tab) 650 mg PO Q6H PRN PRN Reason: Pain, Mild (1-3) Amlodipine Besylate (Norvasc) 10 mg PO DAILY [facility] Last Admin: 02/15/18 10:12 Dose: 10 mg Atorvastatin Calcium (Lipitor) 20 mg PO DIN [facility] Last Admin: 02/15/18 17:04 Dose: 20 mg Clopidogrel Bisulfate (Plavix) 75 mg PO DAILY [facility] Last Admin: 02/15/18 10:12 Dose: 75 mg Enoxaparin Sodium (Lovenox) 80 mg SC BID [facility]; Protocol Last Admin: 02/15/18 17:03 Dose: 80 mg Famotidine (Pepcid) 20 mg PO 1000,2200 [facility] Last Admin: 02/15/18 10:12 Dose: 20 mg Levetiracetam (Keppra) 500 mg PO Q12 [facility] Last Admin: 02/15/18 10:12 Dose: 500 mg Lidocaine (Lidoderm) 1 ea TD DAILY [facility] Last Admin: 02/15/18 10:19 Dose: Not Given Lorazepam (Ativan) 2 mg PO BID [facility]; Protocol Last Admin: 02/15/18 17:04 Dose: 2 mg - Labs Labs: 02/14/18 05:15 02/14/18 05:15 PT 11.8 SECONDS (9.4-12.5) 02/15/18 17:30 INR 1.03 02/15/18 17:30 APTT 23.2 Seconds (25.1-36.5) L 02/15/18 17:30 Attending/Attestation - Attestation I have personally seen and examined this patient.: Yes I have fully participated in the care of the patient.: Yes I have reviewed all pertinent clinical information, including history, physical exam and plan: Yes Notes (Text): 02/15/18 18:07 Patient was seen and examined with medical massage therapist. 62-year-old woman, past medical history of Asthma, Anxiety, CVA, HTN, Epilepsy, DVT/PE on anticoagulation with lovenox at home , who has had several episodes of seizures due to non-compliance with Dilantin , CT head was negative, Patient was evaluated by Neurology Dilantinin is discontined , level was also sub therapeautic ,Patient was laoded with Keppra, and has been started on oral Keppra 500 mg BID.Patient is seizure free. 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 ,
[2018-02-15] MEDS ORDERED: DiphenhydrAMINE 50 mg/ml Inj IVP ONE (15:00)
[2018-02-15 17:21] VITALS: TEMP 98.3; O2SAT 100
[2018-02-15 17:54] LABS: INR 1.03; PARTIAL THROMBOPLASTIN TIME 23.2 Seconds (25.1-36.5); PROTHROMBIN TIME 11.8 SECONDS (9.4-12.5)
[2018-02-16 06:41] LABS: EOS # 0.1 (0.0-0.7); EOS % 1.1 % (1.5-5.0); GRAN # 3.2 (1.4-6.5); GRAN % 60.8 % (50.0-68.0); HEMOGLOBIN 11.2 g/dL (12.0-16.0); LYMPH # 1.5 (1.2-3.4); LYMPH % 28.8 % (22.0-35.0); MEAN CELL VOLUME 97.2 fl (80.0-105.0); MEAN CORPUSCULAR HGB CONC 31.9 g/dl (31.0-37.0); MEAN PLATELET VOLUME 10.5 fl (7.0-11.0); MONO # 0.5 (0.1-0.6); MONO % 9.3 % (1.0-6.0); RBC 3.61 10^6/uL (3.5-6.1); RED CELL DISTRIBUTION WIDTH 14.2 % (11.5-14.5); WHITE BLOOD COUNT 5.3 10^3/uL (4.5-11.0)
[2018-02-16 06:42] LABS: ALBUMIN 3.6 g/dL (3.0-4.8); ALT/SGPT 23 U/L (7-56); AST/SGOT 21 U/L (14-36); BLOOD UREA NITROGEN 13 mg/dL (7-21); CALCIUM 8.4 mg/dL (8.4-10.5); GFR NON-AFRICAN AMERICAN > 60
[2018-02-16] MEDS: Enoxaparin 80 mg Syringe SC SCH ×2 (09:38→17:52)
[2018-02-16] MEDS: Lidocaine 5% Patch TD SCH ×2 (09:38→09:47)
[2018-02-16 09:47] VITALS: BP 128/68
[2018-02-16] MEDS ORDERED: Iohexol 350 MG/100 ML VIAL ONE ×2 (11:03→15:22)
[2018-02-16] MEDS ORDERED: DiphenhydrAMINE 50 mg/ml Inj IVP ONE ×2 (11:24→13:30)
--- NOTE | 2018-02-16 12:28 | PN ---
DATE: 02/16/2018 FOLLOWUP SUBJECTIVE: The patient denies retrosternal chest pain at this time. She is about to be taken for CT angio of the chest. PHYSICAL EXAMINATION: VITAL SIGNS: Blood pressure 128/68, heart rate 100, temperature 98.3, respirations 20. HEENT: Normocephalic. CHEST: Minimal rhonchi. HEART: S1 and S2 regular. EXTREMITIES: Trace leg edema. LABORATORY DATA: Today's SMA-7 is within normal limits except for chloride of 108 and creatinine 0.6. Today's hemoglobin and hematocrit 11.2 and 35.1, white count and platelet count are within normal limit. Echocardiography study revealed normal left ventricular wall thickness and ejection fraction with grade 1 abnormal relaxation pattern and mild pulmonary hypertension. ASSESSMENT: 1. Seizure activity. 2. Anterolateral ischemic EKG changes. 3. History of pulmonary embolus. 4. Anxiety disorder. 5. History of colon cancer. RECOMMENDATIONS: Continue current Keppra 500 mg twice a day, Lipitor 20 mg once a day, Lovenox at 80 mg subcutaneously twice a day, Norvasc 10 mg once a day, Plavix 75 mg once a day. I will follow the CT angio with a PE protocol that about to be performed this morning. Anupam Subramanian MD
--- NOTE | 2018-02-16 14:57 | CP.PCM.PN ---
Subjective - Date & Time of Evaluation Date of Evaluation: 02/16/18 Time of Evaluation: 14:53 - Subjective Subjective: PGY-1 Medicine Progress Note for Dr. Desai Patient seen and examined at bedside this morning. No acute overnight events reported. No reported seizure activity while on the floor. Continues to endorse atypical chest pain, awaiting CTA head/neck. Patient was asked to clarify her allergic reaction IV contrast and dyes. She was educated on what an anaphylactic reaction is and denies one to contrast, states her reaction is hives. She also states she has received CT with contrast in the past at [facility] a couple of months ago as well as [place], was given a dose of benadryl before hand each time, and was ok. Patient amenable to CTA today with benadryl administered beforehand. Objective - Vital Signs/Intake and Output Vital Signs (last 24 hours): Temp Pulse Resp BP Pulse Ox 98.3 F 83 20 128/68 100 02/15/18 17:20 02/16/18 10:00 02/15/18 17:20 02/16/18 09:46 02/15/18 17:20 - Medications Medications: Current Medications Acetaminophen (Tylenol 325mg Tab) 650 mg PO Q6H PRN PRN Reason: Pain, Mild (1-3) Amlodipine Besylate (Norvasc) 10 mg PO DAILY [facility] Last Admin: 02/16/18 09:46 Dose: 10 mg Atorvastatin Calcium (Lipitor) 20 mg PO DIN [facility] Last Admin: 02/15/18 17:04 Dose: 20 mg Clopidogrel Bisulfate (Plavix) 75 mg PO DAILY [facility] Last Admin: 02/16/18 09:39 Dose: 75 mg Enoxaparin Sodium (Lovenox) 80 mg SC BID [facility]; Protocol Last Admin: 02/16/18 09:38 Dose: 80 mg Famotidine (Pepcid) 20 mg PO 1000,2200 [facility] Last Admin: 02/16/18 09:39 Dose: 20 mg Levetiracetam (Keppra) 500 mg PO Q12 [facility] Last Admin: 02/16/18 09:39 Dose: 500 mg Lidocaine (Lidoderm) 1 ea TD DAILY [facility] Last Admin: 02/16/18 09:47 Dose: Not Given Lorazepam (Ativan) 2 mg PO BID [facility]; Protocol Last Admin: 02/16/18 09:39 Dose: 2 mg - Labs Labs: 02/16/18 05:30 02/16/18 05:30 PT 11.8 SECONDS (9.4-12.5) 02/15/18 17:30 INR 1.03 02/15/18 17:30 APTT 23.2 Seconds (25.1-36.5) L 02/15/18 17:30 - Constitutional Appears: Non-toxic, No Acute Distress - Head Exam Head Exam: ATRAUMATIC, NORMAL INSPECTION, NORMOCEPHALIC - Eye Exam Eye Exam: EOMI, Normal appearance - ENT Exam ENT Exam: Mucous Membranes Moist, Normal Exam - Neck Exam Neck Exam: Full ROM, Normal Inspection - Respiratory Exam Respiratory Exam: Clear to Ausculation Bilateral, NORMAL BREATHING PATTERN. absent: Rales, Rhonchi, Wheezes, Respiratory Distress, Stridor - Cardiovascular Exam Cardiovascular Exam: REGULAR RHYTHM, +S1, +S2 - GI/Abdominal Exam GI & Abdominal Exam: Soft, Normal Bowel Sounds. absent: Distended, Firm, Guarding, Rigid, Tenderness, Organomegaly, Rebound - Extremities Exam Extremities Exam: Full ROM, Normal Capillary Refill, Normal Inspection. absent: Joint Swelling - Back Exam Back Exam: NORMAL INSPECTION - Neurological Exam Neurological Exam: Alert, Awake, CN II-XII Intact, Normal Gait, Oriented x3 - Psychiatric Exam Psychiatric exam: Normal Affect, Normal Mood - Skin Skin Exam: Dry, Intact, Normal Color, Warm Assessment and Plan - Assessment and Plan (Free Text) Assessment: 62 yo F with pmhx of Asthma, Anxiety, CVA, HTN, Epilepsy, DVT/PE, who has had several episodes of seizures due to non-compliance with dilantin. Non-contrast CT scan of the head did not show any acute findings. Plan: Seizure w/ Hx Epilepsy --pt has hx of seizures due to noncomplaince with dilantin --Phenytoin level low on admission --neurochecks q4 --seizure precautions --CT head w/o contrast: no acute intracranial findings --Neurology recs (Dr. Zhao) appreciated -Keppra 500 mg PO BID -Her serum level of dilantin was 8, so it is still subtherapeutic. We can stop it and continue only Keppra. -If she is stable and has no more seizures on Keppra, she can be discharged home to follow up with neurology as an outpatient. --Medications -Ativan 2 mg PO BID -Keppra 500 mg PO BID Acute EKG changes --EKG on admission showed ST-T wave depressions in V4-V6; new compared to 02/13 EKG --trops negative x 3 --TSH from previous visit wnl --Echo (02/13): EF 60.7%, mild tricuspid regurgitation, mild pulmonary HTN --Cardiology recs (Dr. Subramanian) appreciated -Echo: EF 61%, mild tricuspid regurgitation -PT/INR: 11.8/1.03 -f/u CTA --Medications -plavix in lieu of ASA due to allergy -lipitor HTN --Amlodipine 10 mg PO Daily PPx, Diet, Disposition --DVT: lovenox --GI: pepcid --Diet: HHD Case discussed with Dr. Lloyd Carrasquillo DO, PGY-1
--- NOTE | 2018-02-16 16:03 | CT ---
Date of service: 02/16/2018 PROCEDURE: CT Chest with contrast (Pulmonary Angiogram) HISTORY: hx of PE, r/o PE COMPARISON: None available. TECHNIQUE: Axial computed tomography images were obtained of the chest in the pulmonary arterial phase of enhancement. Coronal and sagittal reformatted images were created and reviewed. Intravenous contrast dose: 100 cc of Omni 350 Radiation dose: Total exam DLP = 584.66 mGy-cm. This CT exam was performed using one or more of the following dose reduction techniques: Automated exposure control, adjustment of the mA and/or kV according to patient size, and/or use of iterative reconstruction technique. FINDINGS: PULMONARY ARTERIES: Unremarkable. No pulmonary embolism. AORTA: No acute findings. No thoracic aortic aneurysm. No aortic atherosclerotic calcification or mural plaque present. LUNGS: There is a patchy infiltrate in the left lower lobe consistent with pneumonia PLEURAL SPACES: Unremarkable. No effusion or pneumothorax. HEART: Unremarkable. No cardiomegaly. No significant pericardial effusion. LYMPH NODES: No lymphadenopathy. BONES, CHEST WALL: Unremarkable. No fracture or destructive lesion OTHER FINDINGS: Unremarkable. IMPRESSION: Patchy infiltrate in the left lower lobe suspicious for pneumonia. No evidence of pulmonary embolus.
--- NOTE | 2018-02-16 16:52 | US ---
HISTORY: Leg pain and swelling. Evaluate for DVT PHYSICIAN(S): Bc Watters MD. TECHNIQUE: Duplex sonography and color-flow Doppler with graded compression were used to evaluate the deep venous systems of both lower extremities. The exam is somewhat limited by body habitus and edema FINDINGS: The visualized deep venous systems of both lower extremities are sonographically normal and compressible. Normal wave forms and augmentation are seen. There is no sonographic evidence for deep venous thrombosis in the visualized segments of both lower extremities. IMPRESSION: No sonographic evidence for deep venous thrombosis in the visualized segments of both lower extremities.
[2018-02-16 18:13] VITALS: PULSE 83
--- NOTE | 2018-02-16 20:23 | CP.PCM.DIS ---
<Carlos Carrasquillo - Last Filed: 02/16/18 23:36> Provider - Provider Date of Admission: 02/15/18 12:45 Attending physician: Javier Desai MD Time Spent in preparation of Discharge (in minutes): 40 Hospital Course - Lab Results Lab Results: Most Recent Lab Values WBC 5.3 10^3/uL (4.5-11.0) D 02/16/18 05:30 RBC 3.61 10^6/uL (3.5-6.1) 02/16/18 05:30 Hgb 11.2 g/dL (12.0-16.0) L 02/16/18 05:30 Hct 35.1 % (36.0-48.0) L 02/16/18 05:30 MCV 97.2 fl (80.0-105.0) 02/16/18 05:30 MCH 31.0 pg (25.0-35.0) 02/16/18 05:30 MCHC 31.9 g/dl (31.0-37.0) 02/16/18 05:30 RDW 14.2 % (11.5-14.5) 02/16/18 05:30 Plt Count 149 10^3/uL (120.0-450.0) 02/16/18 05:30 MPV 10.5 fl (7.0-11.0) 02/16/18 05:30 Gran % 60.8 % (50.0-68.0) 02/16/18 05:30 Lymph % (Auto) 28.8 % (22.0-35.0) 02/16/18 05:30 [place] % (Auto) 9.3 % (1.0-6.0) H 02/16/18 05:30 Eos % (Auto) 1.1 % (1.5-5.0) L 02/16/18 05:30 Baso % (Auto) 0.0 % (0.0-3.0) 02/16/18 05:30 Gran # 3.20 (1.4-6.5) 02/16/18 05:30 Lymph # (Auto) 1.5 (1.2-3.4) 02/16/18 05:30 [place] # (Auto) 0.5 (0.1-0.6) 02/16/18 05:30 Eos # (Auto) 0.1 (0.0-0.7) 02/16/18 05:30 Baso # (Auto) 0.00 K/mm3 (0.0-2.0) 02/16/18 05:30 PT 11.8 SECONDS (9.4-12.5) 02/15/18 17:30 INR 1.03 02/15/18 17:30 APTT 23.2 Seconds (25.1-36.5) L 02/15/18 17:30 Sodium 139 mmol/L (132-148) 02/16/18 05:30 Potassium 3.9 mmol/L (3.6-5.0) 02/16/18 05:30 Chloride 108 mmol/L (98-107) H 02/16/18 05:30 Carbon Dioxide 25 mmol/L (21-33) 02/16/18 05:30 Anion Gap 10 (10-20) 02/16/18 05:30 BUN 13 mg/dL (7-21) 02/16/18 05:30 Creatinine 0.6 mg/dl (0.7-1.2) L 02/16/18 05:30 Est GFR ( Amer) > 60 02/16/18 05:30 Est GFR (Non-Af Amer) > 60 02/16/18 05:30 Random Glucose 102 mg/dL (70-110) 02/16/18 05:30 Calcium 8.4 mg/dL (8.4-10.5) 02/16/18 05:30 Phosphorus 3.0 mg/dL (2.5-4.5) 02/14/18 05:15 Magnesium 2.1 mg/dL (1.7-2.2) 02/14/18 05:15 Total Bilirubin 0.2 mg/dL (0.2-1.3) 02/16/18 05:30 AST 21 U/L (14-36) 02/16/18 05:30 ALT 23 U/L (7-56) 02/16/18 05:30 Alkaline Phosphatase 113 U/L (38-126) 02/16/18 05:30 Lactate Dehydrogenase 890 U/L (333-699) H 02/13/18 20:38 Total Creatine Kinase 320 U/L (35-230) H 02/13/18 20:38 CK-MB (CK-2) 1.3 ng/mL (0.0-3.6) 02/13/18 20:38 CK-MB (CK-2) % Cancelled 02/13/18 20:38 Troponin I 0.02 ng/mL 02/14/18 14:53 Total Protein 7.1 g/dL (5.8-8.3) 02/16/18 05:30 Albumin 3.6 g/dL (3.0-4.8) 02/16/18 05:30 Globulin 3.5 gm/dL 02/16/18 05:30 Albumin/Globulin Ratio 1.0 (1.1-1.8) L 02/16/18 05:30 Phenytoin 8 ug/mL (10-20) L 02/13/18 20:38 - Hospital Course Hospital Course: HPI: Patient is a 62 year old female with past medical history of Asthma, Anxiety, stroke, hypertension, Epilepsy, 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 Patient reported she had her first seizure on 11 AM when she was at her doctor's office; she was then transported to [facility] [place] signed out AMA. After that patient came to [facility] pharmacy where she had again had a seizure-like episode which was witnessed by pharmacist. As per ED documentation, patient became suddenly unresponsive, episode lasted <2 minutes. Patient reports she was confused shortly after episode, and had urinated on her self. Patient reports she refused medical care because she was not in her right mind after seizure. She reports she had not taken dilantin for 2-3 days, and reports that she is often noncompliant w/ her medications. She states she returned to ED to follow up her seizure; she is also reporting pressure like chest pain on the left side of chest; w/ radiation into her R neck. Does not report associated diaphoresis or shortness of breath. Remainder of 12 system review of systems is negative at this time. During hospital course: Neurology was consulted for seizure with history of epilepsy. Patient has history of seizures due to noncompliance with home dilantin. CT head without contrast showed no acute findings. Per Neurology recommendations, dilantin was stopped and patient was loaded on Keppra, followed by 500 mg PO BID. EKG on admission showed new ST-T wave abnormalities. Serial troponins were negative, TSH from previous was within normal limits. Cardiology was consulted and Echocardiogram was obtained, showing an ejection fraction of 61%, normal left ventricular function. CTA and venous duplex of lower extremities showed no evidence of DVT/PE. CT chest however, demonstrated early findings suspicious for pneumonia. Patient is medically stable for discharge to home, as per Dr. Pugh. Please take all medications as prescribed. Patient instructed to no longer take Dilantin. Patient will continue with Keppra 500 mg PO twice daily as prescribed. CT chest demonstrates early findings suggestive of pneumonia. Patient made aware of findings, will be discharged on Azithromycin 500 mg PO daily for a total of 5 days. Please follow up with your primary care provider within 1 week of discharge for continued care and medical management. Please follow up with Neurology (Dr. Zhao) in the outpatient setting within 1 week of discharge for monitoring of seizures and keppra medication. Referral has been provided, please call to schedule an appointment. If symptoms worsen, please return to the ED. The following is a summary of hospital course. For full detail, please refer to EMR. - Date & Time of H&P Date of H&P: 02/16/18 Time of H&P: 20:23 Discharge Exam - Head Exam Head Exam: ATRAUMATIC, NORMAL INSPECTION, NORMOCEPHALIC - Eye Exam Eye Exam: EOMI, Normal appearance Pupil Exam: NORMAL ACCOMODATION - ENT Exam ENT Exam: Mucous Membranes Moist, Normal Exam - Neck Exam Neck exam: Full Rom, Normal Inspection - Respiratory Exam Respiratory Exam: Clear to PA & Lateral, NORMAL BREATHING PATTERN, UNREMARKABLE. absent: Accessory Muscle Use, Respiratory Distress - Cardiovascular Exam Cardiovascular Exam: REGULAR RHYTHM, +S1, +S2 - GI/Abdominal Exam GI & Abdominal Exam: Soft, Unremarkable. absent: Distended, Firm, Guarding, Tenderness - Extremities Exam Extremities exam: normal capillary refill, normal inspection, pedal pulses present - Back Exam Back exam: NORMAL INSPECTION - Neurological Exam Neurological exam: Alert, Normal Gait, Oriented x3 - Psychiatric Exam Psychiatric exam: Normal Affect, Normal Mood - Skin Skin Exam: Dry, Intact, Normal Color, Warm Discharge Plan - Discharge Medications Prescriptions: Azithromycin 250 mg PO DAILY #5 tablet Clopidogrel [Plavix] 75 mg PO DAILY #30 tab levETIRAcetam [Keppra] 500 mg PO Q12 #30 tab - Follow Up Plan Condition: STABLE Disposition: HOME/ ROUTINE Instructions: Seizures, Adult (DC), Pneumonia, Adult (DC) Additional Instructions: Patient is medically stable for discharge to home, as per Dr. Pugh. Please take all medications as prescribed. Patient instructed to no longer take Dilantin. Patient will continue with Keppra 500 mg PO twice daily as prescribed. CT chest demonstrates early findings suggestive of pneumonia. Patient made aware of findings, will be discharged on Azithromycin 500 mg PO daily for a total of 5 days. Please follow up with your primary care provider within 1 week of discharge for continued care and medical management. Please follow up with Neurology (Dr. Zhao) in the outpatient setting within 1 week of discharge for monitoring of seizures and keppra medication. Referral has been provided, please call to schedule an appointment. If symptoms worsen, please return to the ED. Referrals: Chava Zhao MD [Staff Provider] - <Javier Desai - Last Filed: 02/17/18 07:52> Provider - Provider Date of Admission: 02/15/18 12:45 Attending physician: Javier Desai MD Hospital Course - Lab Results Lab Results: Most Recent Lab Values WBC 5.3 10^3/uL (4.5-11.0) D 02/16/18 05:30 RBC 3.61 10^6/uL (3.5-6.1) 02/16/18 05:30 Hgb 11.2 g/dL (12.0-16.0) L 02/16/18 05:30 Hct 35.1 % (36.0-48.0) L 02/16/18 05:30 MCV 97.2 fl (80.0-105.0) 02/16/18 05:30 MCH 31.0 pg (25.0-35.0) 02/16/18 05:30 MCHC 31.9 g/dl (31.0-37.0) 02/16/18 05:30 RDW 14.2 % (11.5-14.5) 02/16/18 05:30 Plt Count 149 10^3/uL (120.0-450.0) 02/16/18 05:30 MPV 10.5 fl (7.0-11.0) 02/16/18 05:30 Gran % 60.8 % (50.0-68.0) 02/16/18 05:30 Lymph % (Auto) 28.8 % (22.0-35.0) 02/16/18 05:30 [place] % (Auto) 9.3 % (1.0-6.0) H 02/16/18 05:30 Eos % (Auto) 1.1 % (1.5-5.0) L 02/16/18 05:30 Baso % (Auto) 0.0 % (0.0-3.0) 02/16/18 05:30 Gran # 3.20 (1.4-6.5) 02/16/18 05:30 Lymph # (Auto) 1.5 (1.2-3.4) 02/16/18 05:30 [place] # (Auto) 0.5 (0.1-0.6) 02/16/18 05:30 Eos # (Auto) 0.1 (0.0-0.7) 02/16/18 05:30 Baso # (Auto) 0.00 K/mm3 (0.0-2.0) 02/16/18 05:30 PT 11.8 SECONDS (9.4-12.5) 02/15/18 17:30 INR 1.03 02/15/18 17:30 APTT 23.2 Seconds (25.1-36.5) L 02/15/18 17:30 Sodium 139 mmol/L (132-148) 02/16/18 05:30 Potassium 3.9 mmol/L (3.6-5.0) 02/16/18 05:30 Chloride 108 mmol/L (98-107) H 02/16/18 05:30 Carbon Dioxide 25 mmol/L (21-33) 02/16/18 05:30 Anion Gap 10 (10-20) 02/16/18 05:30 BUN 13 mg/dL (7-21) 02/16/18 05:30 Creatinine 0.6 mg/dl (0.7-1.2) L 02/16/18 05:30 Est GFR ( Amer) > 60 02/16/18 05:30 Est GFR (Non-Af Amer) > 60 02/16/18 05:30 Random Glucose 102 mg/dL (70-110) 02/16/18 05:30 Calcium 8.4 mg/dL (8.4-10.5) 02/16/18 05:30 Phosphorus 3.0 mg/dL (2.5-4.5) 02/14/18 05:15 Magnesium 2.1 mg/dL (1.7-2.2) 02/14/18 05:15 Total Bilirubin 0.2 mg/dL (0.2-1.3) 02/16/18 05:30 AST 21 U/L (14-36) 02/16/18 05:30 ALT 23 U/L (7-56) 02/16/18 05:30 Alkaline Phosphatase 113 U/L (38-126) 02/16/18 05:30 Lactate Dehydrogenase 890 U/L (333-699) H 02/13/18 20:38 Total Creatine Kinase 320 U/L (35-230) H 02/13/18 20:38 CK-MB (CK-2) 1.3 ng/mL (0.0-3.6) 02/13/18 20:38 CK-MB (CK-2) % Cancelled 02/13/18 20:38 Troponin I 0.02 ng/mL 02/14/18 14:53 Total Protein 7.1 g/dL (5.8-8.3) 02/16/18 05:30 Albumin 3.6 g/dL (3.0-4.8) 02/16/18 05:30 Globulin 3.5 gm/dL 02/16/18 05:30 Albumin/Globulin Ratio 1.0 (1.1-1.8) L 02/16/18 05:30 Phenytoin 8 ug/mL (10-20) L 02/13/18 20:38 Attending/Attestation - Attestation I have personally seen and examined this patient.: Yes I have fully participated in the care of the patient.: Yes I have reviewed all pertinent clinical information, including history, physical exam and plan: Yes Notes (Text): 02/16/18 62 year old female with past medical history of asthma, CVA, hypertension, seizures, and DVT/PE on lovenox who presented with complaint of having seizures, likely secondary to medication noncompliance. She was seen by neurology her dilantin was switched to keppra. She was counselled on medication compliance. She also reported atypical chest pain. Serial cardiac enzymes were negative and ACS was ruled out. She was seen by cardiology who ordered LE dopplers, which was negative for DVT, and CT angio which was negative for PE but showed possible early left lower lobe infiltrate. Patient was started on azithromycin. Patient is discharged home to follow up with her pmd. Follow up with neurology. Continue with kesabiha. Counselled on medication compliance. Javier Desai MD Hospitalist.
--- NOTE | 2018-02-18 14:44 | PQF ---
PROVIDER RESPONSE TEXT: Mild intermittent REVIEWER QUERY TEXT: Asthma Specificity and Type Asthma is documented in the Medical Record. Please specify the type and severity of asthma and indic ate if this is associated with exacerbation or status asthmaticus. Such as: -- Mild intermittent -- Mild persistent -- Moderate persistent -- Severe persistent -- Exercise induced bronchospasm -- Cough variant asthma -- Other, please specify The patient's Clinical Indicators include: Please see below. Thank you. Query created by: Laura Echevarria on 02/18/2018 2:24 PM Electronically signed by: Javier Desai MD 02/18/2018 2:41 PM
== END 2018-02-16 19:23 | disposition home or self-care (01) | DRG 53 ==
LOC: ED 17:58 → ERH 22:21 → 3RSO 02-14 00:04 → OBSVTOIN 02-15 12:45
PROVIDERS: ADMIT Internal Medicine; ATTEND Internal Medicine
DX: G40.909 Epilepsy, unspecified, not intractable, without status epilepticus (principal); I11.0 Hypertensive heart disease with heart failure; I50.9 Heart failure, unspecified; E11.9 Type 2 diabetes mellitus without complications; F41.9 Anxiety disorder, unspecified; J45.20 Mild intermittent asthma, uncomplicated; Z86.711 Personal history of pulmonary embolism; Z86.718 Personal history of other venous thrombosis and embolism; Z86.73 Personal history of transient ischemic attack (TIA), and cerebral infarction without residual deficits; Z85.038 Personal history of other malignant neoplasm of large intestine; Z87.891 Personal history of nicotine dependence; Z87.11 Personal history of peptic ulcer disease; K50.90 Crohn's disease, unspecified, without complications; Z90.49 Acquired absence of other specified parts of digestive tract; Z91.19 Patient's noncompliance with other medical treatment and regimen; Z92.21 Personal history of antineoplastic chemotherapy; Z92.3 Personal history of irradiation

== ENCOUNTER 2018-02-24 19:55 | Observation (INO) | payer OTHER ==
--- NOTE | 2018-02-24 20:28 | ED PDOC ---
Arrival/HPI - General Chief Complaint: Back Pain Time Seen by Provider: 02/24/18 20:12 Historian: Patient - History of Present Illness Narrative History of Present Illness (Text): 02/24/18 20:28 Justina Abreu is a 62 year old female, whose past medical history includes asthma, anxiety, CVA, hypertension, seizures, and DVT/PE, who presents to the Emergency department complaining of right-sided chest/back pain. Patient was re cently admitted to the hospital on 02/13/18 for seizures and noted to have early findings suspicious for pneumonia on CT Chest performed on 02/16/18. Patient was discharged on a 5 day course of Azithromycin 500mg. Patient states today she has been experiencing upper back/chest pain with associated subjective fever, chills, and productive cough with occasional blood-tinged sputum. Patient also reports some shortness of breath. Patient requesting Ativan, states she did not take her dose for today. Patient denies any nausea, vomiting, diarrhea, urinary symptoms, neck pain, headache, dizziness, or any other complaints. Symptom Onset: Gradual Symptom Course: Unchanged Activities at Onset: Light Context: Home Past Medical History - Provider Review Nursing Documentation Reviewed: Yes - Infectious Disease Hx of Infectious Diseases: None - Tetanus Immunization Tetanus Immunization: Up to Date - Past Medical History Past Medical History: Non-Contributing - Cardiac Hx Congestive Heart Failure: Yes Hx Hypertension: Yes Hx Peripheral Edema: Yes - Pulmonary Hx Asthma: Yes Hx Bronchitis: Yes Hx Pulmonary Embolism: Yes - Neurological Hx Migraine: Yes Hx Seizures: Yes - HEENT Hx HEENT Disorder: No - Renal Hx Renal Disorder: No - Hematological/Oncological Hx Anemia: Yes - Integumentary Hx Dermatological Disorder: No - Musculoskeletal/Rheumatological Hx Arthritis: Yes - Gastrointestinal Hx Crohn's Disease: Yes Hx Gall Bladder Disease: Yes Hx Gastritis: Yes - Genitourinary/Gynecological Hx Sexually Transmitted Diseases: No - Psychiatric Hx Anxiety: Yes Hx Depression: Yes Hx Substance Use: No - Past Surgical History Past Surgical History: Non-Contributing - Surgical History Hx Cholecystectomy: Yes - Anesthesia Hx Anesthesia: Yes Hx Anesthesia Reactions: No Hx Malignant Hyperthermia: No - Suicidal Assessment Feels Threatened In Home Enviroment: No Family/Social History - Physician Review Nursing Documentation Reviewed: Yes Family/Social History: Unknown Family HX Smoking Status: Former Smoker Hx Alcohol Use: No Hx Substance Use: No Substance used: RX MEDICATION Hx Substance Use Treatment: No Allergies/Home Meds Allergies/Adverse Reactions: Allergies aspirin Allergy (Verified 02/12/18 23:24) SHORTNESS OF BREATH benzethonium chloride Allergy (Verified 02/12/18 23:24) URTICARIA benzocaine Allergy (Verified 02/12/18 23:24) ITCHING broccoli Allergy (Verified 02/12/18 23:24) ITCHING haloperidol Allergy (Verified 02/12/18 23:24) VOMITING ketorolac Allergy (Verified 02/12/18 23:24) ANAPHYLAXIS nitroglycerin Allergy (Verified 02/12/18 23:24) URTICARIA oxycodone Allergy (Verified 02/12/18 23:24) SHORTNESS OF BREATH pineapple Allergy (Verified 02/12/18 23:24) ITCHING trazodone Allergy (Verified 02/12/18 23:24) SWELLING ziprasidone [From Geodon] Allergy (Verified 02/12/18 23:24) SHORTNESS OF BREATH steroids Allergy (Uncoded 02/12/18 23:24) "heart flutters", swelling Home Medications: Home Meds Medication Instructions Recorded Confirmed Enoxaparin [Lovenox] 80 mg SC BID 12/18/16 02/14/18 HYDROmorphone [Dilaudid] 2 mg PO QID PRN 12/22/17 02/13/18 LORazepam [Ativan] 2 mg PO BID 12/22/17 02/14/18 amLODIPine [Norvasc] 10 mg PO DAILY 12/22/17 02/14/18 Cyclobenzaprine HCl 10 PO BID 02/14/18 Review of Systems - Physician Review All systems were reviewed & negative as marked: Yes - Review of Systems Constitutional: Fevers (+subjective fever) Eyes: Normal ENT: Normal Respiratory: SOB, Cough, Sputum Cardiovascular: Chest Pain Gastrointestinal: Normal. absent: Abdominal Pain, Diarrhea, Nausea, Vomiting Genitourinary Female: Normal. absent: Dysuria, Frequency, Hematuria, Urine Output Changes Musculoskeletal: Back Pain. absent: Neck Pain Skin: Normal. absent: Rash Neurological: Normal. absent: Headache, Dizziness Endocrine: Normal Hemo/Lymphatic: Normal Psychiatric: Normal Physical Exam Vital Signs Reviewed: Yes Vital Signs Temp Pulse Resp BP Pulse Ox 02/24/18 19:55 98.6 F 96 H 18 101/73 98 Temperature: Afebrile Blood Pressure: Normal Pulse: Regular Respiratory Rate: Normal Appearance: Positive for: Well-Appearing, Non-Toxic, Comfortable Pain Distress: None Mental Status: Positive for: Alert and Oriented X 3 - Systems Exam Head: Present: Atraumatic, Normocephalic Pupils: Present: PERRL Extroacular Muscles: Present: EOMI Conjunctiva: Present: Normal Mouth: Present: Moist Mucous Membranes Neck: Present: Normal Range of Motion Respiratory/Chest: Present: Clear to Auscultation, Good Air Exchange. No: Respiratory Distress, Accessory Muscle Use Cardiovascular: Present: Regular Rate and Rhythm, Normal S1, S2. No: Murmurs Abdomen: No: Tenderness, Distention, Peritoneal Signs Back: Present: Normal Inspection Upper Extremity: Present: Normal Inspection. No: Cyanosis, Edema Lower Extremity: Present: Normal Inspection. No: Edema Neurological: Present: GCS=15, CN II-XII Intact, Speech Normal Skin: Present: Warm, Dry, Normal Color. No: Rashes Psychiatric: Present: Alert, Oriented x 3, Normal Insight, Normal Concentration Medical Decision Making ED Course and Treatment: 02/24/18 20:28 Impression: 62 year old female complaining of upper back/chest pain, shortness of breath, productive cough, subjective fever, and chills. Plan: -- CT Chest -- EKG -- Chest X-ray -- Labs, cardiac enzymes -- Ativan -- Reassess and disposition Prior Visits: Notes and results from previous visits were reviewed. On 02/13/2018, pt was seen in the Emergency department for seizures and was admitted to the hospital for further evaluation. Pt noted to have early findings suspicious for pneumonia on CT Chest, and was discharged home on 02/16/18 with Azithromycin 500mg PO x5 days. Progress Notes: Reviewed EKG, sinus tachycardia at 103 bpm. T wave changes inferiorly. 02/25/18 01:35 CT Chest: LUNGS: Bilateral lung scarring. The lungs appear essentially clear. No pulmonary mass. PLEURAL SPACES: No evidence of pneumothorax. No pleural effusion. HEART: No cardiomegaly. No significant pericardial effusion. LYMPH NODES: No lymphadenopathy is evident. BONES: No focal osseous abnormality or acute fracture. UPPER ABDOMEN: The upper abdominal solid organs are unremarkable. IMPRESSION: No acute pathology. Electronically signed on Feb 25, 2018 1:28:16 AM EST by: Cj Fischer M.D., JASON Certified By [facility] Fellowship Trained MRI and CT Specialist 02/25/18 01:47 Case discussed with medical assistant cardiology clothing consultant, who is aware and agrees with plan. 02/25/18 01:[address] Fitzpatrick, who is aware and agrees with plan. Accepts pt in to hospitalist service. Pt will go to Telemetry observation for chest pain. - EKG Interpretation Interpreted by ED Physician: Yes Type: 12 lead EKG - Scribe Statement The provider has reviewed the documentation as recorded by the Scribe Alyson Echeverria Provider Scribe Attestation: All medical record entries made by the Scribe were at my direction and personally dictated by me. I have reviewed the chart and agree that the record accurately reflects my personal performance of the history, physical exam, medical decision making, and the department course for this patient. I have also personally directed, reviewed, and agree with the discharge instructions and disposition. Disposition/Present on Arrival - Present on Arrival Any Indicators Present on Arrival: No History of DVT/PE: Yes History of Uncontrolled Diabetes: No Urinary Catheter: No History of Decub. Ulcer: No History Surgical Site Infection Following: None - Disposition Have Diagnosis and Disposition been Completed?: Yes Diagnosis: Chest pain Disposition: HOSPITALIZED Disposition Time: 01:53 Condition: STABLE Discharge Instructions (ExitCare): Chest Pain (ED) Forms: [employer] (Welsh)
[2018-02-24 22:04] LABS: ALB/GLOB RATIO 1.1 (1.1-1.8); ALBUMIN 3.9 g/dL (3.0-4.8); ALT/SGPT 46 U/L (7-56); AST/SGOT 44 U/L (14-36); BLOOD UREA NITROGEN 13 mg/dL (7-21); CALCIUM 8.2 mg/dL (8.4-10.5); GFR NON-AFRICAN AMERICAN > 60
[2018-02-24 22:10] LABS: INR 1.09; PROTHROMBIN TIME 12.4 SECONDS (9.4-12.5)
[2018-02-24 22:12] LABS: TROPONIN I < 0.01 ng/mL
[2018-02-24 22:18] LABS: HEMOGLOBIN 12.8 g/dL (12.0-16.0); MEAN CORPUSCULAR HEMOGLOBIN 31.7 pg (25.0-35.0); MEAN PLATELET VOLUME 9.8 fl (7.0-11.0); RBC 4.04 10^6/uL (3.5-6.1); RED CELL DISTRIBUTION WIDTH 14.4 % (11.5-14.5); WHITE BLOOD COUNT 7.9 10^3/uL (4.5-11.0)
[2018-02-24 22:27] LABS: PARTIAL THROMBOPLASTIN TIME > 400.0 Seconds (25.1-36.5)
[2018-02-25] MEDS ORDERED: guaiFENesin 100 mg/5 ml Syrup UD PO PRN (02:56)
--- NOTE | 2018-02-25 03:07 | CP.PCM.HP ---
<Lee Ryan - Last Filed: 02/25/18 03:46> History of Present Illness - History of Present Illness History of Present Illness: Lee Ryan PGY1 History and Physical for Dr Fitzpatrick Pt is a 62 yo female, with a PMH of asthma, anxiety, CVA, HTN, seizures, and DVT/PE, and colon cancer who presents to the ED complaining of right-sided 8/10 chest/back pain which is made worse by coughing. Pt describes the pain as pressure, she did not try anything at home to help relieve the pain. Patient was recently admitted to the hospital on 02/13/18 for seizures and noted to have early findings suspicious for pneumonia on CT Chest performed on 02/16/18. Pt was discharged on a 5 day course of antibiotics which she states she completed. Pt states today she has been experiencing upper back/chest pain with associated cough. Patient also reports some SOB. A 12 point ROS was obtained and added to the HPI. PMH: asthma, anxiety, CVA, HTN, seizures, DVT/PE, and colon cancer PSH: hysterectomy, colostomy bag FH: Sister - heart transplant, Father jena, 2 brothers w/ CAD w/ stenting Home meds: Lovenox, Losartan-HCTZ 50-12.5 QD, Amlodipine 30 QD Allergies: as per chart Pharmacy: [facility] [place] Pharmacy PMD: [place] Present on Admission - Present on Admission Any Indicators Present on Admission: No Review of Systems - Review of Systems Review of Systems: a 12 point ROS was obtained and added to the HPI Past Patient History - Infectious Disease Hx of Infectious Diseases: None - Tetanus Immunizations Tetanus Immunization: Up to Date - Past Medical History & Family History Past Medical History?: Yes - Past Social History Smoking Status: Former Smoker - CARDIAC Hx Congestive Heart Failure: Yes Hx Hypertension: Yes Hx Peripheral Edema: Yes - PULMONARY Hx Asthma: Yes Hx Bronchitis: Yes Hx Pulmonary Embolism: Yes - NEUROLOGICAL Hx Migraine: Yes Hx Seizures: Yes - HEENT Hx HEENT Problems: No - RENAL Hx Chronic Kidney Disease: No - HEMATOLOGICAL/ONCOLOGICAL Hx Anemia: Yes - INTEGUMENTARY Hx Dermatological Problems: No - MUSCULOSKELETAL/RHEUMATOLOGICAL Hx Arthritis: Yes - GASTROINTESTINAL Hx Crohn's Disease: Yes Hx Gall Bladder Disease: Yes Hx Gastritis: Yes - GENITOURINARY/GYNECOLOGICAL Hx Sexually Transmitted Disorders: No - PSYCHIATRIC Hx Anxiety: Yes Hx Depression: Yes Hx Substance Use: No - SURGICAL HISTORY Hx Cholecystectomy: Yes - ANESTHESIA Hx Anesthesia: Yes Hx Anesthesia Reactions: No Hx Malignant Hyperthermia: No Meds Allergies/Adverse Reactions: Allergies Allergy/AdvReac Type Severity Reaction Status Date / Time aspirin Allergy SHORTNESS Verified 02/12/18 23:24 OF BREATH benzethonium chloride Allergy URTICARIA Verified 02/12/18 23:24 benzocaine Allergy ITCHING Verified 02/12/18 23:24 broccoli Allergy ITCHING Verified 02/12/18 23:24 haloperidol Allergy VOMITING Verified 02/12/18 23:24 ketorolac Allergy ANAPHYLAXIS Verified 02/12/18 23:24 nitroglycerin Allergy URTICARIA Verified 02/12/18 23:24 oxycodone Allergy SHORTNESS Verified 02/12/18 23:24 OF BREATH pineapple Allergy ITCHING Verified 02/12/18 23:24 trazodone Allergy SWELLING Verified 02/12/18 23:24 ziprasidone [From Geodon] Allergy SHORTNESS Verified 02/12/18 23:24 OF BREATH steroids Allergy "heart Uncoded 02/12/18 23:24 flutters", swelling Physical Exam - Constitutional Appears: Non-toxic, No Acute Distress - Head Exam Head Exam: ATRAUMATIC, NORMAL INSPECTION, NORMOCEPHALIC - Eye Exam Eye Exam: EOMI, PERRL - ENT Exam ENT Exam: Mucous Membranes Moist - Neck Exam Neck exam: Positive for: Full Rom, Normal Inspection - Respiratory Exam Respiratory Exam: Clear to Auscultation Bilateral, NORMAL BREATHING PATTERN. absent: Accessory Muscle Use, Wheezes, Respiratory Distress - Cardiovascular Exam Cardiovascular Exam: RRR, +S1, +S2. absent: Diastolic murmur, Systolic Murmur - GI/Abdominal Exam GI & Abdominal Exam: Normal Bowel Sounds, Soft. absent: Tenderness Additional comments: surgical scars present, colostomy scar present - Extremities Exam Extremities exam: Positive for: full ROM, normal inspection, pedal pulses present. Negative for: calf tenderness, pedal edema, tenderness - Back Exam Back exam: FULL ROM - Psychiatric Exam Psychiatric exam: Normal Affect, Normal Mood - Skin Skin Exam: Dry, Intact, Warm Results - Vital Signs Recent Vital Signs: Last Vital Signs Temp 98.6 F 02/24/18 19:55 Pulse 72 02/24/18 22:30 Resp 18 02/24/18 22:30 BP 144/74 02/24/18 22:30 Pulse Ox 100 02/24/18 22:30 - Labs Result Diagrams: 02/24/18 21:46 02/24/18 21:46 Labs: Laboratory Results - last 24 hr 02/24/18 02/24/18 02/24/18 21:46 21:46 21:46 WBC 7.9 D RBC 4.04 Hgb 12.8 Hct 40.0 MCV 99.0 MCH 31.7 MCHC 32.0 RDW 14.4 Plt Count 183 MPV 9.8 PT 12.4 INR 1.09 APTT > 400.0 H* Sodium 140 Potassium 3.8 Chloride 108 H Carbon Dioxide 24 Anion Gap 12 BUN 13 Creatinine 0.7 Est GFR ( Amer) > 60 Est GFR (Non-Af Amer) > 60 Random Glucose 101 Calcium 8.2 L Total Bilirubin 0.2 AST 44 H D ALT 46 Alkaline Phosphatase 140 H D Lactate Dehydrogenase 812 H Total Creatine Kinase 192 Troponin I < 0.01 D Total Protein 7.5 Albumin 3.9 Globulin 3.6 Albumin/Globulin Ratio 1.1 Assessment & Plan - Assessment and Plan (Free Text) Assessment: Pt is a 62 yo female, with a PMH of asthma, anxiety, CVA, HTN, seizures, and DVT/PE, and colon cancer who presents to the ED complaining of right-sided 8/10 chest/back pain which is made worse by coughing. Plan: ACS, rule out - chest pain likely due to residual cough from PNA, start robitussin - EKG shows no signs of ischemia - Trop negative x1, continue to trend - repeat EKG in the morning - follow up lipid panel - follow up TSH - ECHO from last admission, EF60% Diarrhea - follow up c. diff, fecal leukocytes, o/p Hx of Anxiety - ativan HTN - continue home amlodipine Hx of Seizures - restart keppra Hx of DVT/PE - lovenox - LE US from last admission, negative for signs of DVT Ppx/ Diet - protonix - regular diet Pt seen, examined, assessment and plan discussed with Dr Nanette Ryan PGY1 - Date & Time Date: 02/25/18 Time: 03:09 <Iris Fitzpatrick - Last Filed: 02/25/18 06:49> Results - Vital Signs Recent Vital Signs: Last Vital Signs Temp 97.7 F 02/25/18 04:00 Pulse 91 H 02/25/18 05:42 Resp 20 02/25/18 04:00 BP 120/62 02/25/18 04:00 Pulse Ox 97 02/25/18 04:00 - Labs Result Diagrams: 02/24/18 21:46 02/24/18 21:46 Labs: Laboratory Results - last 24 hr 02/24/18 02/24/18 02/24/18 21:46 21:46 21:46 WBC 7.9 D RBC 4.04 Hgb 12.8 Hct 40.0 MCV 99.0 MCH 31.7 MCHC 32.0 RDW 14.4 Plt Count 183 MPV 9.8 PT 12.4 INR 1.09 APTT > 400.0 H* Sodium 140 Potassium 3.8 Chloride 108 H Carbon Dioxide 24 Anion Gap 12 BUN 13 Creatinine 0.7 Est GFR ( Amer) > 60 Est GFR (Non-Af Amer) > 60 Random Glucose 101 Calcium 8.2 L Total Bilirubin 0.2 AST 44 H D ALT 46 Alkaline Phosphatase 140 H D Lactate Dehydrogenase 812 H Total Creatine Kinase 192 Troponin I < 0.01 D Total Protein 7.5 Albumin 3.9 Globulin 3.6 Albumin/Globulin Ratio 1.1 Attending/Attestation - Attestation I have personally seen and examined this patient.: Yes I have fully participated in the care of the patient.: Yes I have reviewed all pertinent clinical information: Yes Notes (Text): 02/25/18 06:41 Pt seen with the resident by the bedside. Case discussed in detail. Agree with documentation.assessment and plan of treatment. Note:As per pt's discharge note from 02/16/18 ,she is supposed to take Plavix,however she has not been taking it.
[2018-02-25 03:54] VITALS: BMI 38.9
[2018-02-25] MEDS ORDERED: Lidocaine 5% Patch TD STA (04:50)
[2018-02-25 04:53] VITALS: RESP 20
[2018-02-25 07:40] LABS: HDL CHOLESTEROL 83 mg/dL (29-60)
[2018-02-25 07:52] LABS: LDL CHOLESTEROL 86 mg/dL (0-129)
[2018-02-25 07:53] LABS: TROPONIN I < 0.01 ng/mL
--- NOTE | 2018-02-25 08:57 | CT ---
Date of service: 02/25/2018 PROCEDURE: CT Chest without contrast HISTORY: cough/hx. recent pneumonia COMPARISON: None available. TECHNIQUE: Contiguous axial images were obtained through the chest without intravenous contrast enhancement. Sagittal and coronal reconstructions were performed. Radiation dose: Total exam DLP = 812.04 mGy-cm. This CT exam was performed using one or more of the following dose reduction techniques: Automated exposure control, adjustment of the mA and/or kV according to patient size, and/or use of iterative reconstruction technique. FINDINGS: LUNGS: Clear lungs. Visualized airway clear MEDIASTINUM: Unremarkable thoracic aorta. No aneurysm. Normal sized heart. Main pulmonary artery unremarkable. No vascular congestion. No lymphadenopathy. Minimal aortic calcification PLEURA: No pleural fluid. No pneumothorax. BONES: No fracture. No destructive lesion. UPPER ABDOMEN: Gallbladder removed OTHER FINDINGS: The report concurs with the preliminary [facility] report IMPRESSION: Unremarkable non-contrast enhanced CT of the chest.
--- NOTE | 2018-02-25 09:57 | RAD ---
Date of service: 02/24/2018 HISTORY: sob COMPARISON: No prior. FINDINGS: LUNGS: No active pulmonary disease. PLEURA: No significant pleural effusion identified, no pneumothorax apparent. CARDIOVASCULAR: No aortic atherosclerotic calcification present. Moderate cardiomegaly no pulmonary vascular congestion. OSSEOUS STRUCTURES: No significant abnormalities. VISUALIZED UPPER ABDOMEN: Normal. OTHER FINDINGS: None. IMPRESSION: No active disease.
[2018-02-25] MEDS ORDERED: Enoxaparin 40 mg Syringe SC SCH (10:00)
[2018-02-25] MEDS ORDERED: Enoxaparin 80 mg Syringe SC SCH (10:00)
--- NOTE | 2018-02-25 12:22 | CARD ---
APPROVED REPORT Date of service: 02/24/2018 EKG Measurement Heart [id number] [place] [id number] <Conclusion> Sinus tachycardia Possible Inferior infarct, age undetermined Abnormal ECG
--- NOTE | 2018-02-25 12:34 | CARD ---
APPROVED REPORT Date of service: 02/25/2018 EKG Measurement Heart [id number] <Conclusion> Normal sinus rhythm Normal ECG
--- NOTE | 2018-02-25 13:48 | CP.PCM.DIS ---
<Carlos Carrasquillo - Last Filed: 02/25/18 16:34> Provider - Provider Date of Admission: 02/25/18 01:50 Attending physician: Felix Rodriguez MD Time Spent in preparation of Discharge (in minutes): 40 Hospital Course - Lab Results Lab Results: Most Recent Lab Values WBC 7.9 10^3/uL (4.5-11.0) D 02/24/18 21:46 RBC 4.04 10^6/uL (3.5-6.1) 02/24/18 21:46 Hgb 12.8 g/dL (12.0-16.0) 02/24/18 21:46 Hct 40.0 % (36.0-48.0) 02/24/18 21:46 MCV 99.0 fl (80.0-105.0) 02/24/18 21:46 MCH 31.7 pg (25.0-35.0) 02/24/18 21:46 MCHC 32.0 g/dl (31.0-37.0) 02/24/18 21:46 RDW 14.4 % (11.5-14.5) 02/24/18 21:46 Plt Count 183 10^3/uL (120.0-450.0) 02/24/18 21:46 MPV 9.8 fl (7.0-11.0) 02/24/18 21:46 PT 12.4 SECONDS (9.4-12.5) 02/24/18 21:46 INR 1.09 02/24/18 21:46 APTT > 400.0 Seconds (25.1-36.5) H* 02/24/18 21:46 Sodium 140 mmol/L (132-148) 02/24/18 21:46 Potassium 3.8 mmol/L (3.6-5.0) 02/24/18 21:46 Chloride 108 mmol/L (98-107) H 02/24/18 21:46 Carbon Dioxide 24 mmol/L (21-33) 02/24/18 21:46 Anion Gap 12 (10-20) 02/24/18 21:46 BUN 13 mg/dL (7-21) 02/24/18 21:46 Creatinine 0.7 mg/dl (0.7-1.2) 02/24/18 21:46 Est GFR ( Amer) > 60 02/24/18 21:46 Est GFR (Non-Af Amer) > 60 02/24/18 21:46 Random Glucose 101 mg/dL (70-110) 02/24/18 21:46 Calcium 8.2 mg/dL (8.4-10.5) L 02/24/18 21:46 Total Bilirubin 0.2 mg/dL (0.2-1.3) 02/24/18 21:46 AST 44 U/L (14-36) H D 02/24/18 21:46 ALT 46 U/L (7-56) 02/24/18 21:46 Alkaline Phosphatase 140 U/L (38-126) H D 02/24/18 21:46 Lactate Dehydrogenase 812 U/L (333-699) H 02/24/18 21:46 Total Creatine Kinase 192 U/L (35-230) 02/24/18 21:46 Troponin I < 0.01 ng/mL 02/25/18 07:30 Total Protein 7.5 g/dL (5.8-8.3) 02/24/18 21:46 Albumin 3.9 g/dL (3.0-4.8) 02/24/18 21:46 Globulin 3.6 gm/dL 02/24/18 21:46 Albumin/Globulin Ratio 1.1 (1.1-1.8) 02/24/18 21:46 Triglycerides 65 mg/dL (35-160) 02/25/18 07:30 Cholesterol 196 mg/dL (130-200) 02/25/18 07:30 LDL Cholesterol Direct 86 mg/dL (0-129) 02/25/18 07:30 HDL Cholesterol 83 mg/dL (29-60) H 02/25/18 07:30 TSH 3rd Generation 1.23 mIU/mL (0.46-4.68) 02/25/18 07:30 - Hospital Course Hospital Course: HPI: Patient is a 62 year old female with past medical history of asthma, anxiety, stroke, hypertension, seizures, and DVT/pulmonary embolism, and colon cancer who presents to the ED complaining of right-sided 8/10 chest/back pain which is made worse by coughing. Patient describes the pain as pressure, she did not try anything at home to help relieve the pain. Patient was recently admitted to the hospital on 02/13/18 for seizures and noted to have early findings suspicious for pneumonia on CT Chest performed on 02/16/18. Patient was discharged on a 5 day course of antibiotics which she states she completed. Patient states today she has been experiencing upper back/chest pain with associated cough. Patient also reports some SOB. A 12 point review of systems was obtained and added to the HPI. During the course of admission: EKG demonstrated no signs of ischemic changes. Serial troponin levels were within normal limits. Lipid panel was within normal limits, Echocardiogram from prior admission demonstrated ejection fraction of 60%. Patient was continued on home medicaions and observed overnight. During hospital course, patient denied any chest pain, palpitations, shortness of breath, cough, abdominal pain, nausea/vomiting/diarrhea/constipation. Patient endorses back pain which is chronic in nature secondary to multilevel disc herniations. Patient is medically stable for discharge to home, as per Dr. Pugh. She is i nstructed to continue all home medications as prescribed. Patient is instructed to follow up with her primary care physician within 3-5 days of discharge for continued care and management. If symptoms worsen, please return to the ED. - Date & Time of H&P Date of H&P: 02/25/18 Time of H&P: 13:40 Discharge Exam - Head Exam Head Exam: ATRAUMATIC, NORMAL INSPECTION, NORMOCEPHALIC - Eye Exam Eye Exam: EOMI, Normal appearance Pupil Exam: NORMAL ACCOMODATION - ENT Exam ENT Exam: Mucous Membranes Moist, Normal Exam - Neck Exam Neck exam: Full Rom, Normal Inspection - Respiratory Exam Respiratory Exam: Clear to PA & Lateral, NORMAL BREATHING PATTERN, UNREMARKABLE. absent: Accessory Muscle Use, Rales, Rhonchi, Wheezes, Respiratory Distress, Stridor - Cardiovascular Exam Cardiovascular Exam: REGULAR RHYTHM, +S1, +S2 - GI/Abdominal Exam GI & Abdominal Exam: Normal Bowel Sounds, Soft, Unremarkable. absent: Distended, Firm, Guarding, Hernia, Rebound, Rigid, Tenderness - Extremities Exam Extremities exam: normal capillary refill, normal inspection, pedal pulses present - Back Exam Back exam: NORMAL INSPECTION - Neurological Exam Neurological exam: Alert, CN II-XII Intact, Normal Gait, Oriented x3 - Psychiatric Exam Psychiatric exam: Normal Affect, Normal Mood - Skin Skin Exam: Dry, Intact, Normal Color, Warm Discharge Plan - Follow Up Plan Condition: STABLE Disposition: AGAINST MEDICAL ADVICE Instructions: Chest Pain (DC), Chest Pain (GEN) Additional Instructions: Patient is medically stable for discharge to home, as per Dr. Pugh. She is instructed to continue all home medications as prescribed. Patient is instructed to follow up with her primary care physician within 3-5 days of discharge for continued care and management. Referrals: PCP,NO [Non-Staff] - <Patria Pugh - Last Filed: 02/26/18 15:16> Provider - Provider Date of Admission: 02/25/18 01:50 Attending physician: Felix Rodriguez MD Hospital Course - Lab Results Lab Results: Most Recent Lab Values WBC 7.9 10^3/uL (4.5-11.0) D 02/24/18 21:46 RBC 4.04 10^6/uL (3.5-6.1) 02/24/18 21:46 Hgb 12.8 g/dL (12.0-16.0) 02/24/18 21:46 Hct 40.0 % (36.0-48.0) 02/24/18 21:46 MCV 99.0 fl (80.0-105.0) 02/24/18 21:46 MCH 31.7 pg (25.0-35.0) 02/24/18 21:46 MCHC 32.0 g/dl (31.0-37.0) 02/24/18 21:46 RDW 14.4 % (11.5-14.5) 02/24/18 21:46 Plt Count 183 10^3/uL (120.0-450.0) 02/24/18 21:46 MPV 9.8 fl (7.0-11.0) 02/24/18 21:46 PT 12.4 SECONDS (9.4-12.5) 02/24/18 21:46 INR 1.09 02/24/18 21:46 APTT 34.7 Seconds (25.1-36.5) 02/25/18 14:00 Sodium 140 mmol/L (132-148) 02/24/18 21:46 Potassium 3.8 mmol/L (3.6-5.0) 02/24/18 21:46 Chloride 108 mmol/L (98-107) H 02/24/18 21:46 Carbon Dioxide 24 mmol/L (21-33) 02/24/18 21:46 Anion Gap 12 (10-20) 02/24/18 21:46 BUN 13 mg/dL (7-21) 02/24/18 21:46 Creatinine 0.7 mg/dl (0.7-1.2) 02/24/18 21:46 Est GFR ( Amer) > 60 02/24/18 21:46 Est GFR (Non-Af Amer) > 60 02/24/18 21:46 Random Glucose 101 mg/dL (70-110) 02/24/18 21:46 Calcium 8.2 mg/dL (8.4-10.5) L 02/24/18 21:46 Total Bilirubin 0.2 mg/dL (0.2-1.3) 02/24/18 21:46 AST 44 U/L (14-36) H D 02/24/18 21:46 ALT 46 U/L (7-56) 02/24/18 21:46 Alkaline Phosphatase 140 U/L (38-126) H D 02/24/18 21:46 Lactate Dehydrogenase 812 U/L (333-699) H 02/24/18 21:46 Total Creatine Kinase 192 U/L (35-230) 02/24/18 21:46 Troponin I < 0.01 ng/mL 02/25/18 14:00 Total Protein 7.5 g/dL (5.8-8.3) 02/24/18 21:46 Albumin 3.9 g/dL (3.0-4.8) 02/24/18 21:46 Globulin 3.6 gm/dL 02/24/18 21:46 Albumin/Globulin Ratio 1.1 (1.1-1.8) 02/24/18 21:46 Triglycerides 65 mg/dL (35-160) 02/25/18 07:30 Cholesterol 196 mg/dL (130-200) 02/25/18 07:30 LDL Cholesterol Direct 86 mg/dL (0-129) 02/25/18 07:30 HDL Cholesterol 83 mg/dL (29-60) H 02/25/18 07:30 TSH 3rd Generation 1.23 mIU/mL (0.46-4.68) 02/25/18 07:30 Attending/Attestation - Attestation I have personally seen and examined this patient.: Yes I have fully participated in the care of the patient.: Yes I have reviewed all pertinent clinical information, including history, physical exam and plan: Yes Notes (Text): 02/26/18 15:12 Medical record note made by the resident after discussion with my direction and input after the patient was personally seen and examined by me. I have reviewed the chart and agree that the record accurately reflects by personal performance of the history, physical exam, data review, and medical decision-making, in the course for the patient. I have also personally directed the plan of care. 62-year-old woman, past medical history of Asthma, Anxiety, CVA, HTN, Seizure disorder, DVT/PE on anticoagulation with lovenox at home , Chronic back pain and drug abuse was admitted with atypical Chest pain , has chest wall tenderness, EKG is negative for ischemic changes.S erial troponins are normal.Patient is not having any pain.Recent Echo showed normal systolic function. She will be discharged home and will follow up with PCP and cardiology, will need out patient stress test , it was discussed in detail with her. Management plan was discussed in detail with patient. Education was provided.
[2018-02-25 17:30] VITALS: BP 141/79; TEMP 98.6; O2SAT 95
[2018-02-25 18:12] VITALS: PULSE 88
--- NOTE | 2018-02-25 19:53 | CP.PCM.PN ---
Subjective - Date & Time of Evaluation Date of Evaluation: 02/25/18 Time of Evaluation: 18:50 - Subjective Subjective: I was called for Code Higgins/Elopement on this 62F with pertinent history of psychiatric issues. Patient eloped but left her phone in the room, so had to come back to retrieve it. When she came back, the RN saw her with unknown tablets in her hand. The patient denies taking the pills at all. When I was told about this, I canceled her discharge and began evaluation and work up. Patient was advised to stay for evaluation from ICU and for monitoring of mental status and airway, but she decided to sign out against medical advice. At this time, she has full competency to do so and it was unclear whether she had actually taken any pills at all, so she was allowed to AMA. Patient was advised to go to the nearest ED, as she did not want to stay at [facility]. She was urged to stay here at [facility] or at least be evaluated by the [facility] ED, but she refused and signed out AMA. Objective - Vital Signs/Intake and Output Vital Signs (last 24 hours): Temp Pulse Resp BP Pulse Ox 98.6 F 88 20 141/79 95 02/25/18 17:30 02/25/18 18:00 02/25/18 17:30 02/25/18 17:30 02/25/18 17:30 - Medications Medications: Current Medications Amlodipine Besylate (Norvasc) 10 mg PO DAILY [facility] Last Admin: 02/25/18 10:33 Dose: 10 mg Clopidogrel Bisulfate (Plavix) 75 mg PO DAILY [facility] Last Admin: 02/25/18 10:33 Dose: 75 mg Enoxaparin Sodium (Lovenox) 80 mg SC BID [facility]; Protocol Last Admin: 02/25/18 10:32 Dose: 80 mg Guaifenesin (Robitussin) 100 mg PO Q4H PRN PRN Reason: Cough Levetiracetam (Keppra) 500 mg PO Q12 [facility] Last Admin: 02/25/18 10:32 Dose: 500 mg Lorazepam (Ativan) 2 mg PO BID [facility]; Protocol Last Admin: 02/25/18 10:32 Dose: 2 mg Pantoprazole Sodium (Protonix Ec Tab) 40 mg PO ACB [facility] - Labs Labs: 02/24/18 21:46 02/24/18 21:46 PT 12.4 SECONDS (9.4-12.5) 02/24/18 21:46 INR 1.09 02/24/18 21:46 APTT 34.7 Seconds (25.1-36.5) 02/25/18 14:00
[2018-02-26] MEDS ORDERED: Pantoprazole 40 mg EC Tab PO SCH (07:30)
== END 2018-02-25 19:48 | disposition left against medical advice (07) ==
LOC: ED 19:55 → ERH 02-25 01:50 → 3RNO 02-25 03:33
PROVIDERS: ADMIT Hospitalist; ATTEND Hospitalist
DX: R07.9 Chest pain, unspecified (principal); M54.9 Dorsalgia, unspecified; G89.29 Other chronic pain; I10 Essential (primary) hypertension; J45.909 Unspecified asthma, uncomplicated; Z85.038 Personal history of other malignant neoplasm of large intestine; Z86.73 Personal history of transient ischemic attack (TIA), and cerebral infarction without residual deficits; Z86.711 Personal history of pulmonary embolism; Z86.718 Personal history of other venous thrombosis and embolism; Z87.891 Personal history of nicotine dependence
CPT/HCPCS: 36415; 71045; 71250; 80053; 80061; 82550; 83615; 84443; 84484; 85027; 85610; 85730; 93005; 96372; 96374; 99283; C9113; G0378; J1650

== ENCOUNTER 2018-04-03 18:13 | Emergency (ER) | payer OTHER ==
[2018-04-03 18:13] VITALS: BMI 38.9
[2018-04-03 18:56] LABS: BASO # 0.01 K/mm3 (0.0-2.0); BASO % 0.2 % (0.0-3.0); EOS % 0.2 % (1.5-5.0); GRAN # 2.93 (1.4-6.5); GRAN % 59.8 % (50.0-68.0); HEMOGLOBIN 11.5 g/dL (12.0-16.0); LYMPH # 1.5 (1.2-3.4); LYMPH % 30.6 % (22.0-35.0); MEAN CELL VOLUME 97.8 fl (80.0-105.0); MEAN CORPUSCULAR HEMOGLOBIN 31.5 pg (25.0-35.0); MEAN CORPUSCULAR HGB CONC 32.2 g/dl (31.0-37.0); MEAN PLATELET VOLUME 9.5 fl (7.0-11.0); MONO # 0.5 (0.1-0.6); MONO % 9.2 % (1.0-6.0); RBC 3.65 10^6/uL (3.5-6.1); RED CELL DISTRIBUTION WIDTH 14.2 % (11.5-14.5); WHITE BLOOD COUNT 4.9 10^3/uL (4.5-11.0)
[2018-04-03 19:07] LABS: ALBUMIN 3.8 g/dL (3.0-4.8); ALT/SGPT 35 U/L (7-56); AST/SGOT 48 U/L (14-36); BLOOD UREA NITROGEN 7 mg/dL (7-21); CALCIUM 8.3 mg/dL (8.4-10.5); GFR NON-AFRICAN AMERICAN > 60
--- NOTE | 2018-04-03 20:22 | ED PDOC ---
Arrival/HPI - General Chief Complaint: Seizure - History of Present Illness Narrative History of Present Illness (Text): 62 yr old F w/ hx of DVT, Epilepsy, Anxiety p/w complaint of seizure. Pt notes that she was told from her cousin today that she had a seizure. She notes that s he may have had a seizure but is unsure and that she does not remember having a seizure. She notes that roughly one hour ago she went to sleep and woke up tired and was told she had a seizure by her cousin. She notes taking her dilantin today but states that she had forgot to take her ativan today. She denies any urinary complaints, GI complaints, CP or SOB. No fever, chills or night sweats. No headache. No neck stiffness. No fall or trauma. No dark or bloody stool. No N/V. No etoh use. No SI or HI, no depression. PMD: Dr. Calero Past Medical History - Infectious Disease Hx of Infectious Diseases: None - Tetanus Immunization Tetanus Immunization: Up to Date - Past Medical History Past Medical History: Non-Contributing - Cardiac Hx Congestive Heart Failure: Yes Hx Hypertension: Yes Hx Peripheral Edema: Yes Hx Peripheral Vascular Disease: Yes - Pulmonary Hx Asthma: Yes Hx Bronchitis: Yes - Neurological HX Cerebrovascular Accident: Yes Hx Migraine: Yes Hx Seizures: Yes - HEENT Hx HEENT Disorder: No - Renal Hx Renal Disorder: No - Endocrine/Metabolic Hx Endocrine Disorders: No - Hematological/Oncological Hx Anemia: Yes Hx Cancer: Yes (colon) - Integumentary Hx Dermatological Disorder: No - Musculoskeletal/Rheumatological Hx Arthritis: Yes Hx Back Pain: Yes Hx Falls: Yes Hx Herniated Disk: Yes - Gastrointestinal Hx Crohn's Disease: Yes Hx Gall Bladder Disease: Yes - Genitourinary/Gynecological Hx Sexually Transmitted Diseases: No - Psychiatric Hx Anxiety: Yes Hx Depression: Yes Hx Substance Use: No - Past Surgical History Past Surgical History: Non-Contributing - Surgical History Hx Cholecystectomy: Yes - Anesthesia Hx Anesthesia: Yes Hx Anesthesia Reactions: No Hx Malignant Hyperthermia: No - Suicidal Assessment Feels Threatened In Home Enviroment: No Family/Social History Family/Social History: Unknown Family HX Smoking Status: Former Smoker Hx Alcohol Use: No Hx Substance Use: No Substance used: RX MEDICATION Hx Substance Use Treatment: No Allergies/Home Meds Allergies/Adverse Reactions: Allergies aspirin Allergy (Verified 02/12/18 23:24) SHORTNESS OF BREATH benzethonium chloride Allergy (Verified 02/12/18 23:24) URTICARIA benzocaine Allergy (Verified 02/12/18 23:24) ITCHING broccoli Allergy (Verified 02/12/18 23:24) ITCHING haloperidol Allergy (Verified 02/12/18 23:24) VOMITING ketorolac Allergy (Verified 02/12/18 23:24) ANAPHYLAXIS nitroglycerin Allergy (Verified 02/12/18 23:24) URTICARIA oxycodone Allergy (Verified 02/12/18 23:24) SHORTNESS OF BREATH pineapple Allergy (Verified 02/12/18 23:24) ITCHING trazodone Allergy (Verified 02/12/18 23:24) SWELLING ziprasidone [From Geodon] Allergy (Verified 02/12/18 23:24) SHORTNESS OF BREATH steroids Allergy (Uncoded 02/12/18 23:24) "heart flutters", swelling Home Medications: Home Meds Medication Instructions Recorded Confirmed Enoxaparin [Lovenox] 80 mg SC BID 12/18/16 02/25/18 HYDROmorphone [Dilaudid] 2 mg PO QID PRN 12/22/17 02/25/18 LORazepam [Ativan] 2 mg PO BID 12/22/17 02/25/18 amLODIPine [Norvasc] 10 mg PO DAILY 12/22/17 02/25/18 Cyclobenzaprine HCl 10 PO BID 02/14/18 Review of Systems - Review of Systems Constitutional: Normal. absent: Fatigue, Weight Change Eyes: absent: Vision Changes, Photophobia, Eye Pain ENT: absent: Hearing Changes, Tinnitus, TMJ Pain Respiratory: absent: SOB, Cough Cardiovascular: absent: Chest Pain, Palpitations, Edema Gastrointestinal: absent: Abdominal Pain, Stool Changes, Constipation, Nausea, Vomiting, Appetite Changes, Hematochezia, Hematemesis, Anorexia, Food Intolerance, Other Genitourinary Female: absent: Dysuria, Frequency, Hematuria, Urine Output Changes, Vaginal Bleeding, Vaginal Discharge Musculoskeletal: absent: Arthralgias, Back Pain, Neck Pain, Joint Swelling Skin: absent: Rash, Pruritis, Skin Lesions, Laceration Neurological: Seizure. absent: Headache, Dizziness, Focal Weakness, Gait Changes, Speech Changes, Facial Droop, Disequilibrium Endocrine: absent: Diaphoresis, Polyuria, Polydipsia Hemo/Lymphatic: absent: Adenopathy, Easy Bleeding Psychiatric: absent: Anxiety, Depression Physical Exam Vital Signs Temp Pulse Resp BP Pulse Ox 04/03/18 18:13 98.3 F 88 18 142/72 97 Temperature: Afebrile Blood Pressure: Normal Pulse: Regular Respiratory Rate: Normal Appearance: Positive for: Well-Appearing, Non-Toxic, Comfortable Pain Distress: None Mental Status: Positive for: Alert and Oriented X 3 - Systems Exam Head: Present: Atraumatic, Normocephalic Pupils: Present: PERRL Extroacular Muscles: Present: EOMI Conjunctiva: Present: Normal Ears: Present: Normal, NORMAL TM Mouth: Present: Moist Mucous Membranes. No: Dry Pharnyx: Present: Normal. No: ERYTHEMA, EXUDATE Nose (Internal): Present: Normal Inspection Neck: Present: Normal Range of Motion. No: Meningeal Signs Respiratory/Chest: Present: Clear to Auscultation, Good Air Exchange. No: Respiratory Distress, Accessory Muscle Use Cardiovascular: Present: Regular Rate and Rhythm, Normal S1, S2. No: Murmurs Abdomen: Present: Normal Bowel Sounds. No: Tenderness, Distention, Peritoneal Signs Back: Present: Normal Inspection. No: CVA Tenderness, Midline Tenderness Upper Extremity: Present: Normal Inspection, Normal ROM, Neurovascularly Intact. No: Cyanosis, Edema Lower Extremity: Present: Normal Inspection, Normal ROM, Neurovascularly Intact. No: Edema, CALF TENDERNESS Neurological: Present: GCS=15, CN II-XII Intact, Speech Normal, Motor Func Grossly Intact, Normal Sensory Function, Normal Cerebellar Funct, Gait Normal, Memory Normal Skin: Present: Warm, Dry. No: Rashes Psychiatric: Present: Alert, Oriented x 3 Medical Decision Making ED Course and Treatment: 62 yr old F w/ hx of epilepsy, DVT p/w possible seizure. Normal neuro exam. No fall or trauma. No other complaints. Likely seizure 2/2 med error of pt not taking her daily ativan. No signs of withdrawal on my exam. No tongue biting notes. No soiled clothes per pt- no enuresis or encoparesis. No meningeal signs or fever. No other complaints. 04/03/18 20:23 pt denies any urinary complaints labs unremarkable. Dilantin level WNL ativan tab given repeat neuro exam unremarkable no seizure like activity in ED while here. Pt is clear for d/c home, she is agreeable to plan, states she has enough dilantin at home and will take her ativan. Given return indications and followup. Pt is agreeable. - Lab Interpretations Lab Results: 04/03/18 18:52 04/03/18 18:52 Lab Results 04/03/18 18:52: Phenytoin 19 12 18:52: Sodium 142, Potassium 3.6, Chloride 107, Carbon Dioxide 29, Anion Gap 9 L, BUN 7, Creatinine 0.6 L, Est GFR ( Amer) > 60, Est GFR ( Non-Af Amer) > 60, Random Glucose 99, Calcium 8.3 L, Magnesium 2.0, Total B ilirubin 0.3, AST 48 H, ALT 35, Alkaline Phosphatase 130 H, Total Protein 7.5, Albumin 3.8, Globulin 3.7, Albumin/Globulin Ratio 1.0 L 04/03/18 18:52: WBC 4.9 D, RBC 3.65, Hgb 11.5 L, Hct 35.7 L, MCV 97.8, MCH 31.5, MCHC 32.2, RDW 14.2, Plt Count 143, MPV 9.5, Gran % 59.8, Lymph % (Auto) 30.6, [place] % (Auto) 9.2 H, Eos % (Auto) 0.2 L, Baso % (Auto) 0.2, Gran # 2.93, Lymph # (Auto) 1.5, [place] # (Auto) 0.5, Eos # (Auto) 0.0, Baso # (Auto) 0.01 - Medication Orders Current Medication Orders: Discontinued Medications Lorazepam (Ativan) 2 mg PO ONCE ONE; Protocol Stop: 04/03/18 18:39 Last Admin: 04/03/18 19:14 Dose: 2 mg Disposition/Present on Arrival - Present on Arrival Any Indicators Present on Arrival: No History of DVT/PE: Yes History of Uncontrolled Diabetes: No Urinary Catheter: No History of Decub. Ulcer: No History Surgical Site Infection Following: None - Disposition Have Diagnosis and Disposition been Completed?: Yes Diagnosis: Seizure-like activity Disposition: HOME/ ROUTINE Disposition Time: 20:27 Patient Problems: Current Active Problems Problem Status Onset Seizure-like activity Acute Condition: GOOD Discharge Instructions (ExitCare): Seizures, Adult (DC) Additional Instructions: REMEMBER TO TAKE YOUR MEDICATIONS. VERONA SAGASTUME, thank you for letting us take care of you today. Your provider was Abdulkadir Mendoza and you were treated for Seizure. The emergency medical care you received today was directed at your acute symptoms. If you were prescribed any medication, please fill it and take as directed. It may take several days for your symptoms to resolve. Return to the Emergency Department if your symptoms worsen, do not improve, or if you have any other problems. Please contact your doctor or call one of the physicians/clinics you have been referred to that are listed on the Patient Visit Information form that is included in your discharge packet. Bring any paperwork you were given at discharge with you along with any medications you are taking to your follow up visit. Our treatment cannot replace ongoing medical care by a primary care provider outside of the emergency department. Thank you for allowing the [facility] Commun[facility] team to be part of your care today. If you had an X-Ray or CT scan: A Radiologist will review the ED reading if any change in treatment is needed we will contact you. If you had a blood, urine, or wound culture: It will take several days for the results, if any change in treatment is needed we will contact you. If you had an STI test: It will take 48 hours for the results. Please call after 1 week if you have not heard back. Referrals: Cedric Huang MD [Family Provider] - Follow up with primary Chava Zhao MD [Staff Provider] - Follow up with primary
[2018-04-03 20:31] VITALS: BP 144/68; PULSE 82; RESP 16; TEMP 98.4; O2SAT 98
--- NOTE | 2018-04-04 09:16 | CARD ---
APPROVED REPORT Date of service: 04/03/2018 EKG Measurement Heart [id number] <Conclusion> Normal sinus rhythm Q in lll PRWP No change
== END 2018-04-03 20:37 | disposition home or self-care (01) ==
LOC: ED 18:13
DX: R56.9 Unspecified convulsions (principal); I11.0 Hypertensive heart disease with heart failure; I50.9 Heart failure, unspecified; Z86.73 Personal history of transient ischemic attack (TIA), and cerebral infarction without residual deficits; Z87.891 Personal history of nicotine dependence

== ENCOUNTER 2018-06-02 12:16 | Emergency (ER) | payer OTHER ==
[2018-06-02 12:49] VITALS: BMI 37.5
[2018-06-02 12:50] VITALS: BP 137/84; PULSE 72; RESP 18; TEMP 98.4; O2SAT 98
--- NOTE | 2018-06-02 13:36 | ED PDOC ---
Arrival/HPI - General Chief Complaint: Seizure Time Seen by Provider: 06/02/18 13:17 Historian: Patient - History of Present Illness Narrative History of Present Illness (Text): 06/02/18 13:17 Justina Abreu is a 62 year old female, with a past medical history of asthma, anxiety, CVA, hypertension, DVT/PE, and seizures, who presents to the emergency department s/p seizure witnessed by daughter who is not at bedside. Patient fell to the ground. Patient states she wants her dilantin levels checked. Patient is well known to the ER and has presented with similar symptoms. Patient denies fevers, chills, headache, dizziness, chest pain, shortness of breath, dyspnea on exertion, cough, abdominal pain, nausea, vomiting, diarrhea, back pain, neck pain, or any other complaint. Time/Duration: Prior to Arrival Symptom Onset: Sudden Symptom Course: Resolved Activities at Onset: Light Context: Home Past Medical History - Provider Review Nursing Documentation Reviewed: Yes - Infectious Disease Hx of Infectious Diseases: None - Tetanus Immunization Tetanus Immunization: Up to Date - Past Medical History Past Medical History: Non-Contributing - Cardiac Hx Cardiac Disorders: Yes Hx Congestive Heart Failure: Yes Hx Hypertension: Yes Hx Peripheral Edema: Yes Hx Peripheral Vascular Disease: Yes - Pulmonary Hx Respiratory Disorders: Yes Hx Asthma: Yes Hx Bronchitis: Yes - Neurological Hx Neurological Disorder: Yes HX Cerebrovascular Accident: Yes Hx Migraine: Yes Hx Seizures: Yes - HEENT Hx HEENT Disorder: No - Renal Hx Renal Disorder: No - Endocrine/Metabolic Hx Endocrine Disorders: No - Hematological/Oncological Hx Blood Disorders: Yes Hx Anemia: Yes Hx Cancer: Yes (colon) - Integumentary Hx Dermatological Disorder: No - Musculoskeletal/Rheumatological Hx Musculoskeletal Disorders: Yes Hx Arthritis: Yes Hx Back Pain: Yes Hx Falls: Yes Hx Herniated Disk: Yes - Gastrointestinal Hx Gastrointestinal Disorders: Yes Hx Crohn's Disease: Yes Hx Gall Bladder Disease: Yes - Genitourinary/Gynecological Hx Genitourinary Disorders: No - Psychiatric Hx Psychophysiologic Disorder: Yes Hx Anxiety: Yes Hx Depression: Yes Hx Substance Use: No - Past Surgical History Past Surgical History: Non-Contributing - Surgical History Hx Cholecystectomy: Yes - Anesthesia Hx Anesthesia: Yes Hx Anesthesia Reactions: No Hx Malignant Hyperthermia: No - Suicidal Assessment Feels Threatened In Home Enviroment: No Family/Social History - Physician Review Nursing Documentation Reviewed: Yes Family/Social History: CAD/MA (Brothers; CAD w/stents, Sister; heart transplant ), Other (Father; stroke) Smoking Status: Former Smoker Hx Alcohol Use: No Hx Substance Use: No Substance used: RX MEDICATION Hx Substance Use Treatment: No Allergies/Home Meds Allergies/Adverse Reactions: Allergies aspirin Allergy (Verified 06/02/18 13:01) SHORTNESS OF BREATH benzethonium chloride Allergy (Verified 06/02/18 13:01) URTICARIA benzocaine Allergy (Verified 06/02/18 13:01) ITCHING broccoli Allergy (Verified 06/02/18 13:01) ITCHING haloperidol Allergy (Verified 06/02/18 13:01) VOMITING ketorolac Allergy (Verified 06/02/18 13:01) ANAPHYLAXIS nitroglycerin Allergy (Verified 06/02/18 13:01) URTICARIA oxycodone Allergy (Verified 06/02/18 13:01) SHORTNESS OF BREATH pineapple Allergy (Verified 06/02/18 13:01) ITCHING trazodone Allergy (Verified 06/02/18 13:01) SWELLING ziprasidone [From Geodon] Allergy (Verified 06/02/18 13:01) SHORTNESS OF BREATH steroids Allergy (Uncoded 06/02/18 13:01) "heart flutters", swelling Home Medications: Home Meds Medication Instructions Recorded Confirmed RX: Enoxaparin [Lovenox] 80 mg SC BID 12/18/16 06/02/18 RX: HYDROmorphone [Dilaudid] 2 mg PO QID PRN 12/22/17 06/02/18 RX: LORazepam [Ativan] 2 mg PO BID 12/22/17 06/02/18 RX: amLODIPine [Norvasc] 10 mg PO DAILY 12/22/17 06/02/18 Cyclobenzaprine HCl 10 mg PO BID 02/14/18 06/02/18 Review of Systems - Physician Review All systems were reviewed & negative as marked: Yes - Review of Systems Constitutional: absent: Fevers, Night Sweats Respiratory: absent: SOB, Cough Cardiovascular: absent: Chest Pain, PATTER[place] Gastrointestinal: absent: Abdominal Pain, Diarrhea, Nausea, Vomiting Musculoskeletal: absent: Back Pain, Neck Pain Neurological: Seizure. absent: Dizziness Physical Exam - Physical Exam Narrative Physical Exam (Text): 06/02/18 13:17 General: No acute distress. Vital Signs Reviewed: Yes Vital Signs Temp Pulse Resp BP Pulse Ox 06/02/18 12:49 98.4 F 72 18 137/84 98 Temperature: Afebrile Blood Pressure: Normal Pulse: Regular Respiratory Rate: Normal Appearance: Positive for: Well-Appearing, Non-Toxic, Comfortable Pain Distress: None Mental Status: Positive for: Alert and Oriented X 3 - Systems Exam Head: Present: Atraumatic, Normocephalic Pupils: Present: PERRL Extroacular Muscles: Present: EOMI Conjunctiva: Present: Normal Mouth: Present: Moist Mucous Membranes Neck: Present: Normal Range of Motion Respiratory/Chest: Present: Clear to Auscultation, Good Air Exchange. No: Respiratory Distress, Accessory Muscle Use Cardiovascular: Present: Regular Rate and Rhythm, Normal S1, S2. No: Murmurs Abdomen: No: Tenderness, Distention, Peritoneal Signs Back: Present: Normal Inspection Upper Extremity: Present: Normal Inspection. No: Cyanosis, Edema Lower Extremity: Present: Normal Inspection. No: Edema Neurological: Present: GCS=15, Speech Normal Skin: Present: Warm, Dry, Normal Color. No: Rashes Psychiatric: Present: Alert, Oriented x 3, Normal Insight, Normal Concentration Medical Decision Making ED Course and Treatment: 06/02/18 13:17 Impression: Patient is a 62 year old female who presents to the Emergency department s/p seizure requesting Dilantin level evaluation. Differential Diagnosis included but are not limited to: Plan: -- CT Head W/O Contrast - states hit head -- Labs -- Reassess and disposition Prior Visits: Notes and results from previous visits were reviewed. Progress Notes: 06/02/18 16:44 noptified by dipika cordova prior to imaigng - RAD Interpretation Radiology Orders: 06/02/18 13:23 HEAD W/O CONTRAST [CT] Stat - Scribe Statement The provider has reviewed the documentation as recorded by the Scribe Cj Slaughter All medical record entries made by the Scribe were at my direction and personally dictated by me. I have reviewed the chart and agree that the record accurately reflects my personal performance of the history, physical exam, medical decision making, and the department course for this patient. I have also personally directed, reviewed, and agree with the discharge instructions and disposition. Disposition/Present on Arrival - Present on Arrival Any Indicators Present on Arrival: No History of DVT/PE: Yes History of Uncontrolled Diabetes: No Urinary Catheter: No History of Decub. Ulcer: No History Surgical Site Infection Following: None - Disposition Have Diagnosis and Disposition been Completed?: Yes Diagnosis: Seizure Disposition: ELOPEMENT - ER ONLY Disposition Time: 12:50 Condition: UNKNOWN Forms: Xiimo (Chinese)
[2018-06-02 14:18] LABS: EOS % 0.6 % (1.5-5.0); HEMOGLOBIN 13.1 g/dL (12.0-16.0); LYMPH # 1.6 (1.2-3.4); LYMPH % 32.9 % (22.0-35.0); MEAN CELL VOLUME 95.7 fl (80.0-105.0); MEAN CORPUSCULAR HEMOGLOBIN 31.1 pg (25.0-35.0); MEAN CORPUSCULAR HGB CONC 32.5 g/dl (31.0-37.0); MEAN PLATELET VOLUME 10.3 fl (7.0-11.0); MONO # 0.4 (0.1-0.6); MONO % 8.3 % (1.0-6.0); RBC 4.21 10^6/uL (3.5-6.1); RED CELL DISTRIBUTION WIDTH 14.1 % (11.5-14.5); WHITE BLOOD COUNT 4.9 10^3/uL (4.5-11.0)
[2018-06-02 14:29] LABS: ALB/GLOB RATIO 1.1 (1.1-1.8); ALBUMIN 4.2 g/dL (3.0-4.8); ALT/SGPT 32 U/L (7-56); AST/SGOT 39 U/L (14-36); BLOOD UREA NITROGEN 9 mg/dL (7-21); CALCIUM 8.6 mg/dL (8.4-10.5); GFR NON-AFRICAN AMERICAN > 60
== END 2018-06-02 15:13 | disposition left against medical advice (07) ==
LOC: ED 12:16
DX: R56.9 Unspecified convulsions (principal); I11.0 Hypertensive heart disease with heart failure; I50.9 Heart failure, unspecified; J45.909 Unspecified asthma, uncomplicated; F41.9 Anxiety disorder, unspecified; Z86.73 Personal history of transient ischemic attack (TIA), and cerebral infarction without residual deficits; Z87.891 Personal history of nicotine dependence

== ENCOUNTER 2018-06-05 11:39 | Emergency (ER) | payer OTHER ==
[2018-06-05 11:39] VITALS: BMI 37.5
[2018-06-05 11:49] VITALS: TEMP 98.3; O2SAT 97
[2018-06-05] MEDS ORDERED: Sodium Chloride 0.9% 1,000 ML IV STA (11:59)
--- NOTE | 2018-06-05 12:06 | ED PDOC ---
Arrival/HPI - General Chief Complaint: Abdominal Pain Time Seen by Provider: 06/05/18 11:51 Historian: Patient - History of Present Illness Narrative History of Present Illness (Text): 06/05/18 12:01 A 62 year old female, whose past medical history includes a colectomy for colon cancer, presents to the emergency department complaining of abdominal pain, nausea, and multiple episodes of diarrhea for the past 2 days. Patient reports vomiting once yesterday. Patient notes she quit smoking 30 years ago. Patient denies any fever, chest pain, alcohol, drugs, travel, exposure, or any other complaints. PMD: Dr. Huang Time/Duration: Other (2 days) Symptom Onset: Gradual Symptom Course: Unchanged Activities at Onset: Light Context: Home Associated Symptoms (Text): 06/05/18 12:57 Well-known to the emergency Department staff. Complains of abdominal pain nausea and multiple episodes of diarrhea and one episode of vomiting since yesterday. No fever. No genitourinary symptoms. She appears to be in no distress. Past Medical History - Provider Review Nursing Documentation Reviewed: Yes - Infectious Disease Hx of Infectious Diseases: None - Tetanus Immunization Tetanus Immunization: Up to Date - Past Medical History Past Medical History: Non-Contributing - Cardiac Hx Cardiac Disorders: Yes Hx Congestive Heart Failure: Yes Hx Hypertension: Yes Hx Peripheral Edema: Yes Hx Peripheral Vascular Disease: Yes - Pulmonary Hx Respiratory Disorders: Yes Hx Asthma: Yes Hx Bronchitis: Yes - Neurological Hx Neurological Disorder: Yes HX Cerebrovascular Accident: Yes Hx Migraine: Yes Hx Seizures: Yes - HEENT Hx HEENT Disorder: No - Renal Hx Renal Disorder: No - Endocrine/Metabolic Hx Endocrine Disorders: No - Hematological/Oncological Hx Blood Disorders: Yes Hx Anemia: Yes Hx Cancer: Yes (colon) - Integumentary Hx Dermatological Disorder: No - Musculoskeletal/Rheumatological Hx Musculoskeletal Disorders: Yes Hx Arthritis: Yes Hx Back Pain: Yes Hx Falls: Yes Hx Herniated Disk: Yes - Gastrointestinal Hx Gastrointestinal Disorders: Yes Hx Crohn's Disease: Yes Hx Gall Bladder Disease: Yes - Genitourinary/Gynecological Hx Genitourinary Disorders: No - Psychiatric Hx Psychophysiologic Disorder: Yes Hx Anxiety: Yes Hx Depression: Yes Hx Substance Use: No - Past Surgical History Past Surgical History: Non-Contributing - Surgical History Hx Cholecystectomy: Yes - Anesthesia Hx Anesthesia: Yes Hx Anesthesia Reactions: No Hx Malignant Hyperthermia: No - Suicidal Assessment Feels Threatened In Home Enviroment: No Family/Social History - Physician Review Nursing Documentation Reviewed: Yes Family/Social History: No Known Family HX Smoking Status: Former Smoker Hx Alcohol Use: No Hx Substance Use: No Substance used: RX MEDICATION Hx Substance Use Treatment: No Allergies/Home Meds Allergies/Adverse Reactions: Allergies aspirin Allergy (Verified 06/05/18 11:41) SHORTNESS OF BREATH benzethonium chloride Allergy (Verified 06/05/18 11:41) URTICARIA benzocaine Allergy (Verified 06/05/18 11:41) ITCHING broccoli Allergy (Verified 06/05/18 11:41) ITCHING haloperidol Allergy (Verified 06/05/18 11:41) VOMITING ketorolac Allergy (Verified 06/05/18 11:41) ANAPHYLAXIS nitroglycerin Allergy (Verified 06/05/18 11:41) URTICARIA oxycodone Allergy (Verified 06/05/18 11:41) SHORTNESS OF BREATH pineapple Allergy (Verified 06/05/18 11:41) ITCHING trazodone Allergy (Verified 06/05/18 11:41) SWELLING ziprasidone [From Geodon] Allergy (Verified 06/05/18 11:41) SHORTNESS OF BREATH steroids Allergy (Uncoded 06/05/18 11:41) "heart flutters", swelling Home Medications: Home Meds Medication Instructions Recorded Confirmed Enoxaparin [Lovenox] 80 mg SC BID 12/18/16 06/02/18 HYDROmorphone [Dilaudid] 2 mg PO QID PRN 12/22/17 06/02/18 LORazepam [Ativan] 2 mg PO BID 12/22/17 06/02/18 amLODIPine [Norvasc] 10 mg PO DAILY 12/22/17 06/02/18 Cyclobenzaprine HCl 10 mg PO BID 02/14/18 06/02/18 Review of Systems - Physician Review All systems were reviewed & negative as marked: Yes - Review of Systems Constitutional: absent: Fatigue, Fevers Respiratory: Normal Cardiovascular: absent: Chest Pain Gastrointestinal: Abdominal Pain, Diarrhea, Nausea, Vomiting Skin: Normal Neurological: Normal. absent: Seizure Physical Exam Vital Signs Reviewed: Yes Vital Signs Temp Pulse Resp BP Pulse Ox 06/05/18 11:41 98.3 F 17 L 17 136/85 97 Temperature: Afebrile Blood Pressure: Normal Pulse: Regular Respiratory Rate: Normal Appearance: Positive for: Well-Appearing Pain Distress: Mild Mental Status: Positive for: Alert and Oriented X 3 - Systems Exam Head: Present: Atraumatic, Normocephalic Pupils: Present: PERRL Extroacular Muscles: Present: EOMI Conjunctiva: Present: Normal Ears: Present: NORMAL TM, Normal Canal. No: Erythema, TM Bulging Mouth: Present: Moist Mucous Membranes Pharnyx: No: ERYTHEMA, EXUDATE, TONSILS ENLARGED Respiratory/Chest: Present: Clear to Auscultation, Good Air Exchange. No: Respiratory Distress, Accessory Muscle Use Cardiovascular: Present: Regular Rate and Rhythm, Normal S1, S2. No: Murmurs Abdomen: Present: Tenderness (mild general abdominal tendreness), Normal Bowel Sounds, Scars (multiple surgical scars). No: Distention, Peritoneal Signs, Rebound, Guarding Back: Present: Normal Inspection Upper Extremity: Present: Normal Inspection. No: Cyanosis, Edema Lower Extremity: Present: Normal Inspection. No: Edema Neurological: Present: GCS=15, CN II-XII Intact, Speech Normal, Motor Func Grossly Intact Skin: Present: Warm, Dry, Normal Color. No: Rashes Psychiatric: Present: Alert, Oriented x 3, Normal Insight, Normal Concentration Medical Decision Making ED Course and Treatment: 06/05/18 12:09 Impression: 62 year old female presenting to the emergency room complaining of abdominal pain, nausea, and diarrhea. Plan: -- CT of abdomen and pelvis -- Labs -- CBC -- IV fluids -- Zofran -- Reassess and disposition Prior Visits: Notes and results from previous visits were reviewed. Progress Notes: 06/05/18 15:18 Procedure: CT of abdomen and pelvis Dictator: Clay Correa Impression: 4 millimeter right middle lobe nodule. Bibasilar fibrosis. Small fat containing left lower abdominal wall hernia. Anastomotic sutures in the rectum. - RAD Interpretation Radiology Orders: CT scan of the abdomen and pelvis as read by the radiologist shows a pulmonary nodule and hernia. Otherwise unremarkable. Retort Feeder Ground Bone: Radiologist - Scribe Statement The provider has reviewed the documentation as recorded by the Barber Todd All medical record entries made by the Scribe were at my direction and pers onally dictated by me. I have reviewed the chart and agree that the record accurately reflects my personal performance of the history, physical exam, medical decision making, and the department course for this patient. I have also personally directed, reviewed, and agree with the discharge instructions and disposition. Disposition/Present on Arrival - Present on Arrival Any Indicators Present on Arrival: No History of DVT/PE: Yes History of Uncontrolled Diabetes: No Urinary Catheter: No History of Decub. Ulcer: No History Surgical Site Infection Following: None - Disposition Have Diagnosis and Disposition been Completed?: Yes Diagnosis: Gastroenteritis, Diarrhea, Nausea and vomiting, Abdominal pain Disposition: HOME/ ROUTINE Disposition Time: 14:10 Patient Plan: Discharge Patient Problems: Current Active Problems Problem Status Onset Abdominal pain Acute Diarrhea Acute Gastroenteritis Acute Nausea and vomiting Acute Condition: IMPROVED Discharge Instructions (ExitCare): Diarrhea in Adolescents and Adults, Acute Abdomen (Belly Pain), Nausea and Vomiting, Adult (DC), Gastroenteritis (ED) Additional Instructions: Clear liquids for 24 hours. Follow-up with PMD. Follow-up in ER as needed. Prescriptions: Ondansetron ODT [Zofran ODT] 4 mg PO Q6 #20 odt Forms: [employer] (Ukrainian)
[2018-06-05 12:40] LABS: EOS % 0.2 % (1.5-5.0); LYMPH # 1.1 (1.2-3.4); LYMPH % 25.6 % (22.0-35.0); MEAN CELL VOLUME 96.8 fl (80.0-105.0); MEAN CORPUSCULAR HEMOGLOBIN 31.6 pg (25.0-35.0); MEAN CORPUSCULAR HGB CONC 32.6 g/dl (31.0-37.0); MEAN PLATELET VOLUME 10.3 fl (7.0-11.0); MONO # 0.3 (0.1-0.6); RBC 4.12 10^6/uL (3.5-6.1); RED CELL DISTRIBUTION WIDTH 14.3 % (11.5-14.5); WHITE BLOOD COUNT 4.1 10^3/uL (4.5-11.0)
[2018-06-05 12:47] LABS: ALB/GLOB RATIO 1.1 (1.1-1.8); ALBUMIN 3.9 g/dL (3.0-4.8); ALT/SGPT 27 U/L (7-56); AST/SGOT 25 U/L (14-36); BLOOD UREA NITROGEN 8 mg/dL (7-21); CALCIUM 8.3 mg/dL (8.4-10.5); GFR NON-AFRICAN AMERICAN > 60; LIPASE 41 U/L (23-300)
[2018-06-05 13:08] VITALS: BP 128/65; PULSE 76; RESP 18
[2018-06-05] MEDS ORDERED: Potassium Chloride 20 mEq/15 ml LIQ UD PO STA (13:11)
--- NOTE | 2018-06-05 14:04 | CT ---
Date of service: 06/05/2018 PROCEDURE: CT Abdomen and Pelvis without intravenous contrast HISTORY: pain/diarrhea COMPARISON: None. TECHNIQUE: Technique. Contrast dose: Radiation dose: Total exam DLP = 1449.29 mGy-cm. This CT exam was performed using one or more of the following dose reduction techniques: Automated exposure control, adjustment of the mA and/or kV according to patient size, and/or use of iterative reconstruction technique. FINDINGS: LOWER THORAX: 4 millimeter right middle lobe nodule. Bibasilar fibrosis. LIVER: Unremarkable. No gross lesion or ductal dilatation. GALLBLADDER AND BILE DUCTS: Cholecystectomy. PANCREAS: Unremarkable. No gross lesion or ductal dilatation. SPLEEN: Unremarkable. ADRENALS: Unremarkable. No mass. KIDNEYS AND URETERS: Unremarkable. No hydronephrosis. No solid mass. VASCULATURE: Unremarkable. No aortic aneurysm. No aortic atherosclerotic calcification or mural plaque present. BOWEL: Anastomotic sutures in the rectum. No obstruction. No gross mural thickening. APPENDIX: Unremarkable. Normal appendix. PERITONEUM: Unremarkable. No free fluid. No free air. LYMPH NODES: Unremarkable. No enlarged lymph nodes. BLADDER: Unremarkable. REPRODUCTIVE: Unremarkable. BONES: No acute fracture. OTHER FINDINGS: Small fat containing left lower abdominal wall hernia. IMPRESSION: 4 millimeter right middle lobe nodule. Bibasilar fibrosis.Small fat containing left lower abdominal wall hernia. Anastomotic sutures in the rectum.
== END 2018-06-05 15:20 | disposition home or self-care (01) ==
LOC: ED 11:39
DX: K52.9 Noninfective gastroenteritis and colitis, unspecified (principal); R19.7 Diarrhea, unspecified; R11.2 Nausea with vomiting, unspecified; R10.9 Unspecified abdominal pain; I50.9 Heart failure, unspecified; I10 Essential (primary) hypertension; Z87.891 Personal history of nicotine dependence
CPT/HCPCS: 74176; 80053; 83690; 83735; 85025; 96361; 96374; 99283; J2405; J7030

== ENCOUNTER 2018-06-12 19:54 | Emergency (ER) | payer OTHER ==
[2018-06-12 19:54] VITALS: BMI 37.5
--- NOTE | 2018-06-12 20:33 | ED PDOC ---
Arrival/HPI - General Chief Complaint: Cough, Cold, Congestion Time Seen by Provider: 06/12/18 20:29 Historian: Patient - History of Present Illness Narrative History of Present Illness (Text): 06/12/18 20:33 Justina Abreu is a 62 year old female, whose past medical history includes COPD, asthma, anemia, DVT on lovenox, PE, anxiety and seizures, who presents to the emergency department complaining of cold-like symptoms. Patient states she has been experiencing dry cough with associated sore throat and rhinorrhea for the past couple of days. Patient denies any fever, chills, chest pain, shortness of breath, nausea, vomiting, diarrhea, urinary symptoms, back pain, neck pain, headache, dizziness, or any other complaints. Symptom Onset: Gradual Symptom Course: Unchanged Activities at Onset: Light Context: Home Past Medical History - Provider Review Nursing Documentation Reviewed: Yes - Infectious Disease Hx of Infectious Diseases: None - Tetanus Immunization Tetanus Immunization: Up to Date - Past Medical History Past Medical History: Non-Contributing - Cardiac Hx Cardiac Disorders: Yes Hx Congestive Heart Failure: Yes Hx Hypertension: Yes Hx Peripheral Edema: Yes Hx Peripheral Vascular Disease: Yes - Pulmonary Hx Respiratory Disorders: Yes Hx Asthma: Yes Hx Bronchitis: Yes - Neurological Hx Neurological Disorder: Yes HX Cerebrovascular Accident: Yes Hx Migraine: Yes Hx Seizures: Yes - HEENT Hx HEENT Disorder: No - Renal Hx Renal Disorder: No - Endocrine/Metabolic Hx Endocrine Disorders: No - Hematological/Oncological Hx Blood Disorders: Yes Hx Anemia: Yes Hx Cancer: Yes (colon) Hx Hepatitis C: Yes - Integumentary Hx Dermatological Disorder: No - Musculoskeletal/Rheumatological Hx Musculoskeletal Disorders: Yes Hx Arthritis: Yes Hx Back Pain: Yes Hx Falls: Yes Hx Herniated Disk: Yes - Gastrointestinal Hx Gastrointestinal Disorders: Yes Hx Crohn's Disease: Yes Hx Gall Bladder Disease: Yes - Genitourinary/Gynecological Hx Genitourinary Disorders: No - Psychiatric Hx Psychophysiologic Disorder: Yes Hx Anxiety: Yes Hx Depression: Yes Hx Substance Use: No - Past Surgical History Past Surgical History: Non-Contributing - Surgical History Hx Cholecystectomy: Yes - Anesthesia Hx Anesthesia: Yes Hx Anesthesia Reactions: No Hx Malignant Hyperthermia: No - Suicidal Assessment Feels Threatened In Home Enviroment: No Family/Social History - Physician Review Nursing Documentation Reviewed: Yes Family/Social History: Unknown Family HX Smoking Status: Former Smoker Hx Alcohol Use: No Hx Substance Use: No Substance used: RX MEDICATION Hx Substance Use Treatment: No Allergies/Home Meds Allergies/Adverse Reactions: Allergies aspirin Allergy (Verified 06/12/18 20:22) SHORTNESS OF BREATH benzethonium chloride Allergy (Verified 06/12/18 20:22) URTICARIA benzocaine Allergy (Verified 06/12/18 20:22) ITCHING broccoli Allergy (Verified 06/12/18 20:22) ITCHING haloperidol Allergy (Verified 06/12/18 20:22) VOMITING ketorolac Allergy (Verified 06/12/18 20:22) ANAPHYLAXIS nitroglycerin Allergy (Verified 06/12/18 20:22) URTICARIA oxycodone Allergy (Verified 06/12/18 20:22) SHORTNESS OF BREATH pineapple Allergy (Verified 06/12/18 20:22) ITCHING trazodone Allergy (Verified 06/12/18 20:22) SWELLING ziprasidone [From Geodon] Allergy (Verified 06/12/18 20:22) SHORTNESS OF BREATH steroids Allergy (Uncoded 06/12/18 20:22) "heart flutters", swelling Home Medications: Home Meds Medication Instructions Recorded Confirmed Enoxaparin [Lovenox] 80 mg SC BID 12/18/16 06/02/18 HYDROmorphone [Dilaudid] 2 mg PO QID PRN 12/22/17 06/02/18 LORazepam [Ativan] 2 mg PO BID 12/22/17 06/02/18 amLODIPine [Norvasc] 10 mg PO DAILY 12/22/17 06/02/18 Review of Systems - Physician Review All systems were reviewed & negative as marked: Yes - Review of Systems Constitutional: Normal. absent: Fevers Eyes: Normal ENT: Sore Throat, Rhinorrhea Respiratory: Cough. absent: SOB Cardiovascular: Normal. absent: Chest Pain Gastrointestinal: Normal. absent: Abdominal Pain, Diarrhea, Nausea, Vomiting Genitourinary Female: Normal. absent: Dysuria, Frequency, Hematuria, Urine Output Changes Musculoskeletal: Normal. absent: Back Pain, Neck Pain Skin: Normal. absent: Rash Neurological: Normal. absent: Headache, Dizziness Endocrine: Normal Hemo/Lymphatic: Normal Psychiatric: Normal Physical Exam Vital Signs Reviewed: Yes Vital Signs Temp Pulse Resp BP Pulse Ox 06/12/18 20:24 98.7 F 87 18 141/72 96 Temperature: Afebrile Blood Pressure: Normal Pulse: Regular Respiratory Rate: Normal Appearance: Positive for: Well-Appearing, Non-Toxic, Comfortable Pain Distress: None Mental Status: Positive for: Alert and Oriented X 3 - Systems Exam Head: Present: Atraumatic, Normocephalic Pupils: Present: PERRL Extroacular Muscles: Present: EOMI Conjunctiva: Present: Normal Ears: Present: Normal, NORMAL TM, Normal Canal. No: Erythema, TM Bulging, Fluid, TM Perf Mouth: Present: Moist Mucous Membranes Pharnyx: Present: Normal. No: ERYTHEMA, EXUDATE, TONSILS ENLARGED, Peritonsilar Swelling, Uvular Deviation, Muffled/Hoarse Voice, Strider, Soft Palate/Uvular Edema Nose (External): Present: Atraumatic Nose (Internal): Present: Rhinorrhea Neck: Present: Normal Range of Motion. No: Meningeal Signs, MIDLINE TENDERNESS, Paraspinal Tenderness Respiratory/Chest: Present: Clear to Auscultation, Good Air Exchange. No: Respiratory Distress, Accessory Muscle Use Cardiovascular: Present: Regular Rate and Rhythm, Normal S1, S2. No: Murmurs Abdomen: No: Tenderness, Distention, Peritoneal Signs Back: Present: Normal Inspection. No: CVA Tenderness, Midline Tenderness, Paraspinal Tenderness Upper Extremity: Present: Normal Inspection. No: Cyanosis, Edema Lower Extremity: Present: Normal Inspection. No: Edema Neurological: Present: GCS=15, CN II-XII Intact, Speech Normal Skin: Present: Warm, Dry, Normal Color. No: Rashes Psychiatric: Present: Alert, Oriented x 3, Normal Insight, Normal Concentration Medical Decision Making ED Course and Treatment: 06/12/18 20:33 Impression: 62 year old female complaining of cold-like symptoms, cough, sore throat, and runny nose. Plan: -- Rapid strep -- Rapid influenza -- Reassess and disposition Prior Visits: Notes and results from previous visits were reviewed. Progress Notes: - Scribe Statement The provider has reviewed the documentation as recorded by the Barber Echeverria Provider Scribe Attestation: All medical record entries made by the Scribe were at my direction and personally dictated by me. I have reviewed the chart and agree that the record accurately reflects my personal performance of the history, physical exam, medic al decision making, and the department course for this patient. I have also personally directed, reviewed, and agree with the discharge instructions and disposition. Disposition/Present on Arrival - Present on Arrival Any Indicators Present on Arrival: No History of DVT/PE: Yes History of Uncontrolled Diabetes: No Urinary Catheter: No History of Decub. Ulcer: No History Surgical Site Infection Following: None - Disposition Have Diagnosis and Disposition been Completed?: Yes Diagnosis: Pharyngitis, URI (upper respiratory infection) Disposition: HOME/ ROUTINE Disposition Time: 21:20 Patient Plan: Discharge Condition: GOOD Discharge Instructions (ExitCare): Sore Throat, Adult (DC), Bacterial Upper Respiratory Infection, Adult (DC) Additional Instructions: Drink plenty of liquids/take meds as prescribed/follow up with your doctor this week Prescriptions: Amoxicillin [Amoxil 500 mg Cap] 500 mg PO TID #21 cap Referrals: Cedric Huang MD [Primary Care Provider] - Follow up with primary Forms: [employer] (Swedish)
[2018-06-12 21:14] LABS: INFLUENZA A B NEGATIVE FOR FLU A/B (NEGATIVE)
[2018-06-12 22:03] VITALS: BP 147/75; PULSE 81; RESP 16; TEMP 98.3; O2SAT 99
== END 2018-06-12 22:01 | disposition home or self-care (01) ==
LOC: ED 19:54
DX: J02.9 Acute pharyngitis, unspecified (principal); Z87.891 Personal history of nicotine dependence

== ENCOUNTER 2018-06-17 17:07 | Emergency (ER) | payer OTHER ==
[2018-06-17 17:08] VITALS: BMI 37.5
[2018-06-17 17:39] VITALS: O2SAT 98
[2018-06-17 18:29] VITALS: RESP 16
--- NOTE | 2018-06-17 19:07 | ED PDOC ---
Arrival/HPI - General Chief Complaint: Lower Extremity Problem/Injury Historian: Patient - History of Present Illness Narrative History of Present Illness (Text): 06/17/18 18:50 62 year old female, with past medical history of COPD, asthma, anemia, DVT on lovenox, PE, anxiety and seizures, presents to the ED for evaluation of right ankle pain since 2 days. Patient denies any trauma or injury to the ankle. Patient reports appropriate ambulation without any difficulty. Patient denies any other associated somatic complaints. Patient denies any fevers, chills, headache, dizziness, chest pain, shortness of breath, dyspnea on exertion, cough, abdominal pain, nausea, vomiting, diarrhea, back pain, neck pain, or any other complaints. Time/Duration: < week Symptom Onset: Gradual Symptom Course: Unchanged Activities at Onset: Light Context: Home Past Medical History - Provider Review Nursing Documentation Reviewed: Yes - Infectious Disease Hx of Infectious Diseases: None - Tetanus Immunization Tetanus Immunization: Up to Date - Past Medical History Past Medical History: Non-Contributing - Cardiac Hx Cardiac Disorders: Yes Hx Congestive Heart Failure: Yes Hx Hypertension: Yes Hx Peripheral Edema: Yes Hx Peripheral Vascular Disease: Yes - Pulmonary Hx Respiratory Disorders: Yes Hx Asthma: Yes Hx Bronchitis: Yes - Neurological Hx Neurological Disorder: Yes HX Cerebrovascular Accident: Yes Hx Migraine: Yes Hx Seizures: Yes - HEENT Hx HEENT Disorder: No - Renal Hx Renal Disorder: No - Endocrine/Metabolic Hx Endocrine Disorders: No - Hematological/Oncological Hx Blood Disorders: Yes Hx Anemia: Yes Hx Cancer: Yes (colon) Hx Hepatitis C: Yes - Integumentary Hx Dermatological Disorder: No - Musculoskeletal/Rheumatological Hx Musculoskeletal Disorders: Yes Hx Arthritis: Yes Hx Back Pain: Yes Hx Falls: Yes Hx Herniated Disk: Yes - Gastrointestinal Hx Gastrointestinal Disorders: Yes Hx Crohn's Disease: Yes Hx Gall Bladder Disease: Yes - Genitourinary/Gynecological Hx Genitourinary Disorders: No - Psychiatric Hx Psychophysiologic Disorder: Yes Hx Anxiety: Yes Hx Depression: Yes Hx Substance Use: No - Past Surgical History Past Surgical History: Non-Contributing - Surgical History Hx Cholecystectomy: Yes - Anesthesia Hx Anesthesia: Yes Hx Anesthesia Reactions: No Hx Malignant Hyperthermia: No - Suicidal Assessment Feels Threatened In Home Enviroment: No Family/Social History - Physician Review Nursing Documentation Reviewed: Yes Family/Social History: Unknown Family HX Smoking Status: Former Smoker Hx Alcohol Use: No Hx Substance Use: No Substance used: RX MEDICATION Hx Substance Use Treatment: No Allergies/Home Meds Allergies/Adverse Reactions: Allergies aspirin Allergy (Verified 06/17/18 17:39) SHORTNESS OF BREATH benzethonium chloride Allergy (Verified 06/17/18 17:39) URTICARIA benzocaine Allergy (Verified 06/17/18 17:39) ITCHING broccoli Allergy (Verified 06/17/18 17:39) ITCHING haloperidol Allergy (Verified 06/17/18 17:39) VOMITING ketorolac Allergy (Verified 06/17/18 17:39) ANAPHYLAXIS nitroglycerin Allergy (Verified 06/17/18 17:39) URTICARIA oxycodone Allergy (Verified 06/17/18 17:39) SHORTNESS OF BREATH pineapple Allergy (Verified 06/17/18 17:39) ITCHING trazodone Allergy (Verified 06/17/18 17:39) SWELLING ziprasidone [From Geodon] Allergy (Verified 06/17/18 17:39) SHORTNESS OF BREATH steroids Allergy (Uncoded 06/17/18 17:39) "heart flutters", swelling Home Medications: Home Meds Medication Instructions Recorded Confirmed Enoxaparin [Lovenox] 80 mg SC BID 12/18/16 06/17/18 HYDROmorphone [Dilaudid] 2 mg PO QID PRN 12/22/17 06/17/18 LORazepam [Ativan] 2 mg PO BID 12/22/17 06/17/18 amLODIPine [Norvasc] 10 mg PO DAILY 12/22/17 06/17/18 Review of Systems - Physician Review All systems were reviewed & negative as marked: Yes - Review of Systems Constitutional: absent: Fevers Respiratory: absent: SOB, Cough Cardiovascular: absent: Chest Pain, PATTERSON Gastrointestinal: absent: Abdominal Pain, Diarrhea, Nausea, Vomiting Genitourinary Female: absent: Dysuria, Urine Output Changes Musculoskeletal: Other (right ankle pain). absent: Back Pain, Neck Pain Skin: absent: Rash Neurological: absent: Headache, Dizziness Psychiatric: absent: Anxiety Physical Exam Vital Signs Reviewed: Yes Vital Signs Temp Pulse Resp BP Pulse Ox 06/17/18 18:28 80 16 126/82 98 06/17/18 17:35 98.6 F 86 18 154/81 H 98 Temperature: Afebrile Blood Pressure: Normal Pulse: Regular Respiratory Rate: Normal Appearance: Positive for: Well-Appearing, Non-Toxic, Comfortable Pain Distress: None Mental Status: Positive for: Alert and Oriented X 3 - Systems Exam Head: Present: Atraumatic, Normocephalic Pupils: Present: PERRL Extroacular Muscles: Present: EOMI Conjunctiva: Present: Normal Respiratory/Chest: Present: Clear to Auscultation, Good Air Exchange. No: Respiratory Distress, Accessory Muscle Use Cardiovascular: Present: Regular Rate and Rhythm, Normal S1, S2. No: Murmurs Abdomen: No: Tenderness, Distention, Peritoneal Signs Upper Extremity: Present: Normal Inspection. No: Cyanosis, Edema Lower Extremity: Present: NORMAL PULSES, Tenderness (mild tenderness to posterior right ankle. Achilles intact.), Neurovascularly Intact. No: Edema Neurological: Present: GCS=15, CN II-XII Intact, Speech Normal Skin: Present: Warm, Dry, Normal Color. No: Rashes Psychiatric: Present: Alert, Oriented x 3, Normal Insight, Normal Concentration Medical Decision Making ED Course and Treatment: 06/17/18 18:50 Impression: 62 year old female presents to the ED for evaluation of right ankle pain. Plan: -- X-ray of right ankle -- Reassess and disposition Prior Visits: Notes and results from previous visits were reviewed. Progress Notes: - RAD Interpretation Radiology Orders: 06/17/18 18:50 ANKLE RIGHT 3 VIEWS ROUTINE [RAD] Stat - Scribe Statement The provider has reviewed the documentation as recorded by the Scribe Ewelina Chinchilla. All medical record entries made by the Scribe were at my direction and personally dictated by me. I have reviewed the chart and agree that the record accurately reflects my personal performance of the history, physical exam, medical decision making, and the department course for this patient. I have also personally directed, reviewed, and agree with the discharge instructions and disposition. Disposition/Present on Arrival - Present on Arrival Any Indicators Present on Arrival: No History of DVT/PE: Yes History of Uncontrolled Diabetes: No Urinary Catheter: No History of Decub. Ulcer: No History Surgical Site Infection Following: None - Disposition Have Diagnosis and Disposition been Completed?: Yes Diagnosis: Ankle sprain Disposition: HOME/ ROUTINE Disposition Time: 19:30 Condition: GOOD Discharge Instructions (ExitCare): Ankle Sprain (DC) Additional Instructions: VERONA SAGASTUME, thank you for letting us take care of you today. The emergency medical care you received today was directed at your acute symptoms. If you were prescribed any medication, please fill it and take as directed. It may take several days for your symptoms to resolve. Return to the Emergency Department if your symptoms worsen, do not improve, or if you have any other problems. Please contact your doctor or call one of the physicians/clinics you have been referred to that are listed on the Patient Visit Information form that is included in your discharge packet. Bring any paperwork you were given at discharge with you along with any medications you are taking to your follow up visit. Our treatment cannot replace ongoing medical care by a primary care provider outside of the emergency department. Thank you for allowing the [facility] team to be part of your care today. Follow up with your primary care doctor this week for re-evaluation and further management. Referrals: [facility], [Non-Staff] - Follow up with primary Forms: [employer] (Latvian)
[2018-06-17 20:42] VITALS: BP 130/85; PULSE 82; TEMP 98.4
--- NOTE | 2018-06-18 08:15 | RAD ---
Date of service: 06/17/2018 PROCEDURE: Right Ankle Radiographs. HISTORY: pain r/o fx COMPARISON: None available. FINDINGS: BONES: Normal. No fracture. JOINTS: Normal. No osteoarthritis. Ankle mortise maintained. Talar dome intact SOFT TISSUES: Normal. OTHER FINDINGS: Calcaneal spur on the plantar aspect IMPRESSION: No acute findings
== END 2018-06-17 20:38 | disposition home or self-care (01) ==
LOC: ED 17:07
DX: S93.401A Sprain of unspecified ligament of right ankle, initial encounter (principal); X58.XXXA Exposure to other specified factors, initial encounter

== ENCOUNTER 2018-06-23 14:45 | Emergency (ER) | payer OTHER ==
[2018-06-23 14:45] VITALS: BMI 37.5
[2018-06-23 15:34] VITALS: BP 160/83; PULSE 80; RESP 18; TEMP 98.6; O2SAT 98
--- NOTE | 2018-06-23 17:00 | ED PDOC ---
Arrival/HPI - General Chief Complaint: Palpitations Historian: Patient - History of Present Illness Narrative History of Present Illness (Text): 06/23/18 18:29 62y/o F w/ h/o malingering and multiple psychiatric issues presenting to the Emergency Room with complaint of chest pain. The patient states she began experiencing chest pain. Past Medical History - Infectious Disease Hx of Infectious Diseases: None - Tetanus Immunization Tetanus Immunization: Up to Date - Reproductive Menopause: Yes - Past Medical History Past Medical History: Non-Contributing - Cardiac Hx Cardiac Disorders: Yes Hx Congestive Heart Failure: Yes Hx Hypertension: Yes Hx Peripheral Edema: Yes Hx Peripheral Vascular Disease: Yes - Pulmonary Hx Respiratory Disorders: Yes Hx Asthma: Yes Hx Bronchitis: Yes - Neurological Hx Neurological Disorder: Yes HX Cerebrovascular Accident: Yes Hx Migraine: Yes Hx Seizures: Yes - HEENT Hx HEENT Disorder: No - Renal Hx Renal Disorder: No - Endocrine/Metabolic Hx Endocrine Disorders: No - Hematological/Oncological Hx Blood Disorders: Yes Hx Anemia: Yes Hx Cancer: Yes (colon) Hx Hepatitis C: Yes - Integumentary Hx Dermatological Disorder: No - Musculoskeletal/Rheumatological Hx Musculoskeletal Disorders: Yes Hx Arthritis: Yes Hx Back Pain: Yes Hx Falls: Yes Hx Herniated Disk: Yes - Gastrointestinal Hx Gastrointestinal Disorders: Yes Hx Crohn's Disease: Yes Hx Gall Bladder Disease: Yes - Genitourinary/Gynecological Hx Genitourinary Disorders: No - Psychiatric Hx Psychophysiologic Disorder: Yes Hx Anxiety: Yes Hx Depression: Yes Hx Substance Use: No - Past Surgical History Past Surgical History: Non-Contributing - Surgical History Hx Cholecystectomy: Yes - Anesthesia Hx Anesthesia: Yes Hx Anesthesia Reactions: No Hx Malignant Hyperthermia: No - Suicidal Assessment Feels Threatened In Home Enviroment: No Family/Social History Smoking Status: Former Smoker Hx Alcohol Use: No Hx Substance Use: No Substance used: RX MEDICATION Hx Substance Use Treatment: No Allergies/Home Meds Allergies/Adverse Reactions: Allergies aspirin Allergy (Verified 06/17/18 17:39) SHORTNESS OF BREATH benzethonium chloride Allergy (Verified 06/17/18 17:39) URTICARIA benzocaine Allergy (Verified 06/17/18 17:39) ITCHING broccoli Allergy (Verified 06/17/18 17:39) ITCHING caffeine Allergy (Verified 06/23/18 15:22) ITCHING codeine Allergy (Verified 06/23/18 15:22) ITCHING haloperidol Allergy (Verified 06/17/18 17:39) VOMITING ketorolac Allergy (Verified 06/17/18 17:39) ANAPHYLAXIS nitroglycerin Allergy (Verified 06/17/18 17:39) URTICARIA oxycodone Allergy (Verified 06/17/18 17:39) SHORTNESS OF BREATH pineapple Allergy (Verified 06/17/18 17:39) ITCHING trazodone Allergy (Verified 06/17/18 17:39) SWELLING ziprasidone [From Geodon] Allergy (Verified 06/17/18 17:39) SHORTNESS OF BREATH steroids Allergy (Uncoded 06/17/18 17:39) "heart flutters", swelling Home Medications: Home Meds Medication Instructions Recorded Confirmed Enoxaparin [Lovenox] 80 mg SC BID 12/18/16 06/17/18 HYDROmorphone [Dilaudid] 2 mg PO QID PRN 12/22/17 06/17/18 LORazepam [Ativan] 2 mg PO BID 12/22/17 06/17/18 amLODIPine [Norvasc] 10 mg PO DAILY 12/22/17 06/17/18 Physical Exam Vital Signs Temp Pulse Resp BP Pulse Ox 06/23/18 15:15 98.6 F 80 18 160/83 H 98 Medical Decision Making - Medication Orders Current Medication Orders: Discontinued Medications Lorazepam (Ativan) 2 mg PO ONCE ONE; Protocol Stop: 06/23/18 16:30 Last Admin: 06/23/18 16:39 Dose: 2 mg Disposition/Present on Arrival - Present on Arrival Any Indicators Present on Arrival: Yes History of DVT/PE: Yes History of Uncontrolled Diabetes: No Urinary Catheter: No History of Decub. Ulcer: No History Surgical Site Infection Following: None - Disposition Have Diagnosis and Disposition been Completed?: Yes Diagnosis: Chest pain Disposition: ELOPEMENT - ER ONLY Disposition Time: 17:00 Condition: STABLE Discharge Instructions (ExitCare): Chest Pain (ED) Referrals: Cedric Huang MD [Primary Care Provider] - Follow up with primary
--- NOTE | 2018-06-24 07:08 | CARD ---
APPROVED REPORT Date of service: 06/23/2018 EKG Measurement Heart [id number] <Conclusion> Normal sinus rhythm T wave abnormality, consider inferior ischemia Abnormal ECG
== END 2018-06-23 17:00 | disposition left against medical advice (07) ==
LOC: ED 14:45
DX: R07.9 Chest pain, unspecified (principal); I50.9 Heart failure, unspecified; I10 Essential (primary) hypertension; Z87.891 Personal history of nicotine dependence

== ENCOUNTER 2018-06-27 14:29 | Emergency (ER) | payer OTHER ==
[2018-06-27 14:30] VITALS: BMI 37.5
[2018-06-27 14:43] VITALS: TEMP 98.9
--- NOTE | 2018-06-27 15:22 | ED PDOC ---
Arrival/HPI - General Chief Complaint: Seizure Time Seen by Provider: 06/27/18 14:53 Historian: Patient - History of Present Illness Narrative History of Present Illness (Text): 06/27/18 15:06 62 year old female, with past medical history of COPD, asthma, anemia, DVT on lovenox, PE, anxiety, colon CA on chemotherapy, and seizures, presents to the emergency department for evaluation status post seizure. Patient states she was asleep when her sister witnessed the seizure. Patient states no trauma occurred and she did not fall. Patient also denies biting her tongue. Patient informs of a headache worsened by movement. Patient denies any fevers, chills, chest pain, shortness of breath, cough, abdominal pain, nausea, vomiting, diarrhea, back pain, neck pain, or any other complaints. Time/Duration: 1 hour Symptom Onset: Sudden Symptom Course: Resolved Activities at Onset: Rest, Sleeping Context: Home Past Medical History - Provider Review Nursing Documentation Reviewed: Yes - Infectious Disease Hx of Infectious Diseases: None - Tetanus Immunization Tetanus Immunization: Up to Date - Reproductive Menopause: Yes - Past Medical History Past Medical History: Non-Contributing - Cardiac Hx Cardiac Disorders: Yes Hx Congestive Heart Failure: Yes Hx Hypertension: Yes Hx Peripheral Edema: Yes Hx Peripheral Vascular Disease: Yes - Pulmonary Hx Respiratory Disorders: Yes Hx Asthma: Yes Hx Bronchitis: Yes - Neurological Hx Neurological Disorder: Yes HX Cerebrovascular Accident: Yes Hx Migraine: Yes Hx Seizures: Yes - HEENT Hx HEENT Disorder: No - Renal Hx Renal Disorder: No - Endocrine/Metabolic Hx Endocrine Disorders: No - Hematological/Oncological Hx Blood Disorders: Yes Hx Anemia: Yes Hx Cancer: Yes (colon) Hx Hepatitis C: Yes - Integumentary Hx Dermatological Disorder: No - Musculoskeletal/Rheumatological Hx Musculoskeletal Disorders: Yes Hx Arthritis: Yes Hx Back Pain: Yes Hx Falls: Yes Hx Herniated Disk: Yes - Gastrointestinal Hx Gastrointestinal Disorders: Yes Hx Crohn's Disease: Yes Hx Gall Bladder Disease: Yes - Genitourinary/Gynecological Hx Genitourinary Disorders: No - Psychiatric Hx Psychophysiologic Disorder: Yes Hx Anxiety: Yes Hx Depression: Yes Hx Substance Use: No - Past Surgical History Past Surgical History: Non-Contributing - Surgical History Hx Cholecystectomy: Yes - Anesthesia Hx Anesthesia: Yes Hx Anesthesia Reactions: No Hx Malignant Hyperthermia: No - Suicidal Assessment Feels Threatened In Home Enviroment: No Family/Social History - Physician Review Nursing Documentation Reviewed: Yes Family/Social History: No Known Family HX Smoking Status: Former Smoker Hx Alcohol Use: No Hx Substance Use: No Substance used: RX MEDICATION Hx Substance Use Treatment: No Allergies/Home Meds Allergies/Adverse Reactions: Allergies aspirin Allergy (Verified 06/27/18 14:44) SHORTNESS OF BREATH benzethonium chloride Allergy (Verified 06/27/18 14:44) URTICARIA benzocaine Allergy (Verified 06/27/18 14:44) ITCHING broccoli Allergy (Verified 06/27/18 14:44) ITCHING caffeine Allergy (Verified 06/27/18 14:44) ITCHING codeine Allergy (Verified 06/27/18 14:44) ITCHING haloperidol Allergy (Verified 06/27/18 14:44) VOMITING ketorolac Allergy (Verified 06/27/18 14:44) ANAPHYLAXIS nitroglycerin Allergy (Verified 06/27/18 14:44) URTICARIA oxycodone Allergy (Verified 06/27/18 14:44) SHORTNESS OF BREATH pineapple Allergy (Verified 06/27/18 14:44) ITCHING trazodone Allergy (Verified 06/27/18 14:44) SWELLING ziprasidone [From Geodon] Allergy (Verified 06/27/18 14:44) SHORTNESS OF BREATH steroids Allergy (Uncoded 06/27/18 14:44) "heart flutters", swelling Home Medications: Home Meds Medication Instructions Recorded Confirmed Enoxaparin [Lovenox] 80 mg SC BID 12/18/16 06/27/18 LORazepam [Ativan] 2 mg PO BID 12/22/17 06/27/18 amLODIPine [Norvasc] 10 mg PO DAILY 12/22/17 06/27/18 Review of Systems - Physician Review All systems were reviewed & negative as marked: Yes - Review of Systems Constitutional: absent: Fevers, Night Sweats Respiratory: absent: SOB, Cough Cardiovascular: absent: Chest Pain Gastrointestinal: absent: Abdominal Pain, Diarrhea, Nausea, Vomiting Musculoskeletal: absent: Back Pain, Neck Pain Neurological: Headache Physical Exam Vital Signs Reviewed: Yes Vital Signs Temp Pulse Resp BP Pulse Ox 06/27/18 14:39 98.9 F 80 20 144/90 98 Temperature: Afebrile Blood Pressure: Normal Pulse: Regular Respiratory Rate: Normal Appearance: Positive for: Well-Appearing, Non-Toxic, Comfortable Pain Distress: None Mental Status: Positive for: Alert and Oriented X 3 - Systems Exam Head: Present: Atraumatic, Normocephalic Pupils: Present: PERRL Extroacular Muscles: Present: EOMI Conjunctiva: Present: Normal Mouth: Present: Moist Mucous Membranes Neck: Present: Normal Range of Motion Respiratory/Chest: Present: Clear to Auscultation, Good Air Exchange. No: Respiratory Distress, Accessory Muscle Use Cardiovascular: Present: Regular Rate and Rhythm, Normal S1, S2. No: Murmurs Abdomen: No: Tenderness, Distention, Peritoneal Signs Back: Present: Normal Inspection Upper Extremity: Present: Normal Inspection. No: Cyanosis, Edema Lower Extremity: Present: Normal Inspection. No: Edema Neurological: Present: GCS=15, CN II-XII Intact, Speech Normal Skin: Present: Warm, Dry, Normal Color. No: Rashes Psychiatric: Present: Alert, Oriented x 3, Normal Insight, Normal Concentration Medical Decision Making ED Course and Treatment: 06/27/18 15:24 Impression: 62 year old female presents for evaluation of seizure. Plan: -- CMP, Dilantin -- CBC -- Tylenol -- Reassess and disposition Prior Visits: Notes and results from previous visits were reviewed. Progress Notes: The pt is feeling better and all labs are unremarkable. Pt can be discharged home and will follow up with her neurologist in a few days. - Medication Orders Current Medication Orders: Discontinued Medications Acetaminophen (Tylenol 325mg Tab) 975 mg PO STAT STA Stop: 06/27/18 15:01 - Scribe Statement The provider has reviewed the documentation as recorded by the Barber Echavarria Provider Scribe Attestation: All medical record entries made by the Scribe were at my direction and personally dictated by me. I have reviewed the chart and agree that the record accurately reflects my personal performance of the history, physical exam, medi ivet decision making, and the department course for this patient. I have also personally directed, reviewed, and agree with the discharge instructions and disposition. Disposition/Present on Arrival - Present on Arrival Any Indicators Present on Arrival: No History of DVT/PE: Yes History of Uncontrolled Diabetes: No Urinary Catheter: No History of Decub. Ulcer: No History Surgical Site Infection Following: None - Disposition Have Diagnosis and Disposition been Completed?: Yes Diagnosis: Seizure, Seizure disorder Disposition: HOME/ ROUTINE Disposition Time: 18:19 Patient Plan: Discharge Condition: GOOD Discharge Instructions (ExitCare): Seizures, Adult (DC) Forms: [employer] (Serbian)
[2018-06-27 16:35] LABS: BASO # 0.01 K/mm3 (0.0-2.0); BASO % 0.2 % (0.0-3.0); EOS % 0.4 % (1.5-5.0); HEMOGLOBIN 12.5 g/dL (12.0-16.0); LYMPH # 1.4 (1.2-3.4); LYMPH % 28.3 % (22.0-35.0); MEAN CELL VOLUME 98.2 fl (80.0-105.0); MEAN CORPUSCULAR HEMOGLOBIN 31.3 pg (25.0-35.0); MEAN CORPUSCULAR HGB CONC 31.9 g/dl (31.0-37.0); MEAN PLATELET VOLUME 9.9 fl (7.0-11.0); MONO # 0.4 (0.1-0.6); MONO % 9.1 % (1.0-6.0); RBC 3.99 10^6/uL (3.5-6.1); WHITE BLOOD COUNT 4.8 10^3/uL (4.5-11.0)
[2018-06-27 17:13] LABS: ALB/GLOB RATIO 0.9 (1.1-1.8); ALBUMIN 3.7 g/dL (3.0-4.8); ALT/SGPT 28 U/L (7-56); AST/SGOT 35 U/L (14-36); BLOOD UREA NITROGEN 8 mg/dL (7-21); CALCIUM 8.6 mg/dL (8.4-10.5); GFR NON-AFRICAN AMERICAN > 60
[2018-06-27 17:52] VITALS: BP 144/78; PULSE 79; RESP 18; O2SAT 97
== END 2018-06-27 18:31 | disposition home or self-care (01) ==
LOC: ED 14:29
DX: G40.909 Epilepsy, unspecified, not intractable, without status epilepticus (principal)

== ENCOUNTER 2018-06-29 14:16 | Emergency (ER) | payer OTHER ==
[2018-06-29 14:17] VITALS: BMI 37.5
--- NOTE | 2018-06-29 14:47 | ED PDOC ---
Arrival/HPI - General Chief Complaint: Upper Extremity Problem/Injury Time Seen by Provider: 06/29/18 14:20 Historian: Patient - History of Present Illness Time/Duration: Prior to Arrival Symptom Course: Unchanged Quality: Aching Severity Level: Mild Associated Symptoms (Text): 06/29/18 14:45 Patient reports chronic right shoulder pain. She states that she was out walking and her shoulder began to bother her again. She felt her shoulder and felt a knot. She is actually pointing at her AC joint. No injury or trauma. No chest pain palpitations or dyspnea. No nausea or vomiting. Well-known to the emergency department staff. Past Medical History - Infectious Disease Hx of Infectious Diseases: None - Tetanus Immunization Tetanus Immunization: Up to Date - Past Medical History Past Medical History: Non-Contributing - Cardiac Hx Cardiac Disorders: Yes Hx Congestive Heart Failure: Yes Hx Hypertension: Yes Hx Peripheral Edema: Yes Hx Peripheral Vascular Disease: Yes - Pulmonary Hx Respiratory Disorders: Yes Hx Asthma: Yes Hx Bronchitis: Yes - Neurological Hx Neurological Disorder: Yes HX Cerebrovascular Accident: Yes Hx Migraine: Yes Hx Seizures: Yes - HEENT Hx HEENT Disorder: No - Renal Hx Renal Disorder: No - Endocrine/Metabolic Hx Endocrine Disorders: No - Hematological/Oncological Hx Blood Disorders: Yes Hx Anemia: Yes Hx Cancer: Yes (colon) Hx Hepatitis C: Yes - Integumentary Hx Dermatological Disorder: No - Musculoskeletal/Rheumatological Hx Musculoskeletal Disorders: Yes Hx Arthritis: Yes Hx Back Pain: Yes Hx Falls: Yes Hx Herniated Disk: Yes - Gastrointestinal Hx Gastrointestinal Disorders: Yes Hx Crohn's Disease: Yes Hx Gall Bladder Disease: Yes - Genitourinary/Gynecological Hx Genitourinary Disorders: No - Psychiatric Hx Psychophysiologic Disorder: Yes Hx Anxiety: Yes Hx Depression: Yes Hx Substance Use: No - Past Surgical History Past Surgical History: Non-Contributing - Surgical History Hx Cholecystectomy: Yes - Anesthesia Hx Anesthesia: Yes Hx Anesthesia Reactions: No Hx Malignant Hyperthermia: No - Suicidal Assessment Feels Threatened In Home Enviroment: No Family/Social History - Physician Review Nursing Documentation Reviewed: Yes Family/Social History: Unknown Family HX Smoking Status: Former Smoker Hx Alcohol Use: No Hx Substance Use: No Substance used: RX MEDICATION Hx Substance Use Treatment: No Allergies/Home Meds Allergies/Adverse Reactions: Allergies aspirin Allergy (Verified 06/27/18 14:44) SHORTNESS OF BREATH benzethonium chloride Allergy (Verified 06/27/18 14:44) URTICARIA benzocaine Allergy (Verified 06/27/18 14:44) ITCHING broccoli Allergy (Verified 06/27/18 14:44) ITCHING caffeine Allergy (Verified 06/27/18 14:44) ITCHING codeine Allergy (Verified 06/27/18 14:44) ITCHING haloperidol Allergy (Verified 06/27/18 14:44) VOMITING ketorolac Allergy (Verified 06/27/18 14:44) ANAPHYLAXIS nitroglycerin Allergy (Verified 06/27/18 14:44) URTICARIA oxycodone Allergy (Verified 06/27/18 14:44) SHORTNESS OF BREATH pineapple Allergy (Verified 06/27/18 14:44) ITCHING trazodone Allergy (Verified 06/27/18 14:44) SWELLING ziprasidone [From Geodon] Allergy (Verified 06/27/18 14:44) SHORTNESS OF BREATH steroids Allergy (Uncoded 06/27/18 14:44) "heart flutters", swelling Home Medications: Home Meds Medication Instructions Recorded Confirmed Enoxaparin [Lovenox] 80 mg SC BID 12/18/16 06/27/18 LORazepam [Ativan] 2 mg PO BID 12/22/17 06/27/18 amLODIPine [Norvasc] 10 mg PO DAILY 12/22/17 06/27/18 Review of Systems - Physician Review All systems were reviewed & negative as marked: Yes Physical Exam Vital Signs Temp Pulse Resp BP Pulse Ox 06/29/18 14:42 98.4 F 90 18 152/87 H 98 Temperature: Afebrile Blood Pressure: Hypertensive Pulse: Regular Respiratory Rate: Normal Appearance: Positive for: Well-Appearing, Non-Toxic, Comfortable Pain Distress: None Mental Status: Positive for: Alert and Oriented X 3 - Systems Exam Head: Present: Atraumatic, Normocephalic Neck: Present: Normal Range of Motion. No: MIDLINE TENDERNESS, Paraspinal Tenderness Respiratory/Chest: Present: Clear to Auscultation, Good Air Exchange. No: Respiratory Distress, Accessory Muscle Use Cardiovascular: Present: Regular Rate and Rhythm, Normal S1, S2. No: Murmurs Upper Extremity: Present: Normal Inspection, Normal ROM, NORMAL PULSES, Neurovascularly Intact, Other (Patient is pointing at her AC joint. But nontender to palpation with no swelling and no skin changes.). No: Tenderness, Swelling, Erythema, Deformity Medical Decision Making ED Course and Treatment: 06/29/18 14:46 Patient requesting x-rays. I discussed with her that I did not feel x-rays would be revealing as this is a chronic problem and there is no trauma. She was insistent and films have been ordered. 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 No fracture or dislocation. 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 Ulcer: No History Surgical Site Infection Following: None - Disposition Have Diagnosis and Disposition been Completed?: Yes Diagnosis: Shoulder pain Disposition: HOME/ ROUTINE Disposition Time: 15:00 Patient Plan: Discharge Condition: GOOD Discharge Instructions (ExitCare): Shoulder Pain (DC) Additional Instructions: Tylenol as directed on bottle as needed. Follow-up with PMD. Follow-up in ER as needed. Forms: [employer] (Malay)
[2018-06-29 14:56] VITALS: BP 152/87; PULSE 90; RESP 18; TEMP 98.4; O2SAT 98
--- NOTE | 2018-06-29 16:29 | RAD ---
Date of service: 06/29/2018 PROCEDURE: Radiographs of the Right Shoulder HISTORY: pain COMPARISON: No prior. FINDINGS: BONES: Normal. No fracture. JOINTS: Mild degenerative changes in the acromioclavicular joint SOFT TISSUES: Normal. OTHER FINDINGS: None. IMPRESSION: No acute findings
--- NOTE | 2018-06-30 03:16 | ED PDOC ---
Arrival/HPI - General Chief Complaint: Upper Extremity Problem/Injury Time Seen by Provider: 06/29/18 14:20 Historian: Patient - History of Present Illness Narrative History of Present Illness (Text): 06/30/18 03:18 62 year old female, with a past medical history of COPD, asthma, anemia, DVT on Lovenox, PE, anxiety, colon CA on chemotherapy, and seizures, who presents to the emergency department complaining of chest pain x 1 day. Patient endorses generalized pain, but denies any shortness of breath, headaches, fever, cough, chills, or any other complaints. Patient reports she was in the emergency department earlier today for right shoulder pain. Time/Duration: 24 hours Symptom Onset: Gradual Symptom Course: Unchanged Activities at Onset: Light Context: Home Past Medical History - Provider Review Nursing Documentation Reviewed: Yes - Infectious Disease Hx of Infectious Diseases: None - Tetanus Immunization Tetanus Immunization: Up to Date - Past Medical History Past Medical History: Non-Contributing - Cardiac Hx Cardiac Disorders: Yes Hx Congestive Heart Failure: Yes Hx Hypertension: Yes Hx Peripheral Edema: Yes Hx Peripheral Vascular Disease: Yes - Pulmonary Hx Respiratory Disorders: Yes Hx Asthma: Yes Hx Bronchitis: Yes - Neurological Hx Neurological Disorder: Yes HX Cerebrovascular Accident: Yes Hx Migraine: Yes Hx Seizures: Yes - HEENT Hx HEENT Disorder: No - Renal Hx Renal Disorder: No - Endocrine/Metabolic Hx Endocrine Disorders: No - Hematological/Oncological Hx Blood Disorders: Yes Hx Anemia: Yes Hx Cancer: Yes (colon) Hx Hepatitis C: Yes - Integumentary Hx Dermatological Disorder: No - Musculoskeletal/Rheumatological Hx Musculoskeletal Disorders: Yes Hx Arthritis: Yes Hx Back Pain: Yes Hx Falls: Yes Hx Herniated Disk: Yes - Gastrointestinal Hx Gastrointestinal Disorders: Yes Hx Crohn's Disease: Yes Hx Gall Bladder Disease: Yes - Genitourinary/Gynecological Hx Genitourinary Disorders: No - Psychiatric Hx Psychophysiologic Disorder: Yes Hx Anxiety: Yes Hx Depression: Yes Hx Substance Use: No - Past Surgical History Past Surgical History: Non-Contributing - Surgical History Hx Cholecystectomy: Yes - Anesthesia Hx Anesthesia: Yes Hx Anesthesia Reactions: No Hx Malignant Hyperthermia: No - Suicidal Assessment Feels Threatened In Home Enviroment: No Family/Social History - Physician Review Nursing Documentation Reviewed: Yes Family/Social History: Unknown Family HX Smoking Status: Former Smoker Hx Alcohol Use: No Hx Substance Use: No Substance used: RX MEDICATION Hx Substance Use Treatment: No Allergies/Home Meds Allergies/Adverse Reactions: Allergies aspirin Allergy (Verified 06/27/18 14:44) SHORTNESS OF BREATH benzethonium chloride Allergy (Verified 06/27/18 14:44) URTICARIA benzocaine Allergy (Verified 06/27/18 14:44) ITCHING broccoli Allergy (Verified 06/27/18 14:44) ITCHING caffeine Allergy (Verified 06/27/18 14:44) ITCHING codeine Allergy (Verified 06/27/18 14:44) ITCHING haloperidol Allergy (Verified 06/27/18 14:44) VOMITING ketorolac Allergy (Verified 06/27/18 14:44) ANAPHYLAXIS nitroglycerin Allergy (Verified 06/27/18 14:44) URTICARIA oxycodone Allergy (Verified 06/27/18 14:44) SHORTNESS OF BREATH pineapple Allergy (Verified 06/27/18 14:44) ITCHING trazodone Allergy (Verified 06/27/18 14:44) SWELLING ziprasidone [From Geodon] Allergy (Verified 06/27/18 14:44) SHORTNESS OF BREATH steroids Allergy (Uncoded 06/27/18 14:44) "heart flutters", swelling Home Medications: Home Meds Medication Instructions Recorded Confirmed Enoxaparin [Lovenox] 80 mg SC BID 12/18/16 06/27/18 LORazepam [Ativan] 2 mg PO BID 12/22/17 06/27/18 amLODIPine [Norvasc] 10 mg PO DAILY 12/22/17 06/27/18 Review of Systems - Physician Review All systems were reviewed & negative as marked: Yes - Review of Systems Constitutional: absent: Fevers Respiratory: absent: SOB, Cough Cardiovascular: Chest Pain Gastrointestinal: absent: Nausea, Vomiting Neurological: absent: Headache, Dizziness Physical Exam Vital Signs Temp Pulse Resp BP Pulse Ox 06/29/18 14:42 98.4 F 90 18 152/87 H 98 Temperature: Afebrile Blood Pressure: Hypertensive Pulse: Regular Respiratory Rate: Normal Appearance: Positive for: Well-Appearing, Non-Toxic, Comfortable Pain Distress: None Mental Status: Positive for: Alert and Oriented X 3 - Systems Exam Head: Present: Atraumatic, Normocephalic Pupils: Present: PERRL Extroacular Muscles: Present: EOMI Conjunctiva: Present: Normal Mouth: Present: Moist Mucous Membranes Neck: Present: Normal Range of Motion Respiratory/Chest: Present: Clear to Auscultation, Good Air Exchange. No: Respiratory Distress, Accessory Muscle Use Cardiovascular: Present: Regular Rate and Rhythm, Normal S1, S2. No: Murmurs Abdomen: No: Tenderness, Distention, Peritoneal Signs Back: Present: Normal Inspection Upper Extremity: Present: Normal Inspection. No: Cyanosis, Edema Lower Extremity: Present: Normal Inspection. No: Edema Neurological: Present: GCS=15, Speech Normal Skin: Present: Warm, Dry, Normal Color. No: Rashes Psychiatric: Present: Alert, Oriented x 3, Normal Insight, Normal Concentration Medical Decision Making ED Course and Treatment: 06/30/18 03:13 Impression: 62 year old female presents to the Emergency department complaining of chest pain x 1 day. Differential Diagnosis included but are not limited to: Plan: -- Tylenol -- Reassess and disposition Prior Visits: Notes and results from previous visits were reviewed. Progress Notes: EKG reviewed, shows NSR at 89 06/30/18 03:14 Patient requested Ativan multiple times, i explained that workup needed to be completed to allow cardiology, Patient then left the Emergency department. - RAD Interpretation Radiology Orders: 06/29/18 14:41 SHOULDER RIGHT [RAD] Stat - Medication Orders Current Medication Orders: Discontinued Medications Acetaminophen (Tylenol 325mg Tab) 975 mg PO STAT STA Stop: 06/29/18 15:02 - Scribe Statement The provider has reviewed the documentation as recorded by the Mattieibcara Patrick All medical record entries made by the Scribe were at my direction and personally dictated by me. I have reviewed the chart and agree that the record accurately reflects my personal performance of the history, physical exam, medical decision making, and the department course for this patient. I have also personally directed, reviewed, and agree with the discharge instructions and disposition. Disposition/Present on Arrival - Present on Arrival Any Indicators Present on Arrival: No History of DVT/PE: Yes History of Uncontrolled Diabetes: No Urinary Catheter: No History of Decub. Ulcer: No History Surgical Site Infection Following: None - Disposition Diagnosis: Shoulder pain Disposition: HOME/ ROUTINE Condition: GOOD Discharge Instructions (ExitCare): Shoulder Pain (DC) Additional Instructions: Tylenol as directed on bottle as needed. Follow-up with PMD. Follow-up in ER as needed. Forms: [employer] (Yoruba)
== END 2018-06-29 15:10 | disposition home or self-care (01) ==
LOC: ED 14:16
DX: M25.511 Pain in right shoulder (principal)

== ENCOUNTER 2018-06-29 23:04 | Emergency (ER) | payer OTHER ==
[2018-06-29 23:08] VITALS: BMI 40.3
[2018-06-29 23:31] VITALS: TEMP 98
[2018-06-30 00:25] VITALS: BP 155/82; PULSE 82; RESP 18; O2SAT 98
--- NOTE | 2018-06-30 05:29 | ED PDOC ---
Arrival/HPI - General Chief Complaint: Abdominal Pain Historian: Patient - History of Present Illness Narrative History of Present Illness (Text): 06/30/18 03:18 62 year old female, with a past medical history of COPD, asthma, anemia, DVT on Lovenox, PE, anxiety, colon CA on chemotherapy, and seizures, who presents to the emergency department complaining of chest pain x 1 day. Patient endorses generalized pain, but denies any shortness of breath, headaches, fever, cough, chills, or any other complaints. Patient reports she was in the emergency department earlier today for right shoulder pain. Time/Duration: 24 hours Symptom Onset: Gradual Symptom Course: Unchanged Activities at Onset: Light Context: Home Past Medical History - Provider Review Nursing Documentation Reviewed: Yes - Infectious Disease Hx of Infectious Diseases: None - Tetanus Immunization Tetanus Immunization: Up to Date - Past Medical History Past Medical History: Non-Contributing - Cardiac Hx Cardiac Disorders: Yes Hx Congestive Heart Failure: Yes Hx Hypertension: Yes Hx Peripheral Edema: Yes Hx Peripheral Vascular Disease: Yes - Pulmonary Hx Respiratory Disorders: Yes Hx Asthma: Yes Hx Bronchitis: Yes - Neurological Hx Neurological Disorder: Yes HX Cerebrovascular Accident: Yes Hx Migraine: Yes Hx Seizures: Yes - HEENT Hx HEENT Disorder: No - Renal Hx Renal Disorder: No - Endocrine/Metabolic Hx Endocrine Disorders: No - Hematological/Oncological Hx Blood Disorders: Yes Hx Anemia: Yes Hx Cancer: Yes (colon) Hx Hepatitis C: Yes - Integumentary Hx Dermatological Disorder: No - Musculoskeletal/Rheumatological Hx Musculoskeletal Disorders: Yes Hx Arthritis: Yes Hx Back Pain: Yes Hx Falls: Yes Hx Herniated Disk: Yes - Gastrointestinal Hx Gastrointestinal Disorders: Yes Hx Crohn's Disease: Yes Hx Gall Bladder Disease: Yes - Genitourinary/Gynecological Hx Genitourinary Disorders: No - Psychiatric Hx Psychophysiologic Disorder: Yes Hx Anxiety: Yes Hx Depression: Yes Hx Substance Use: No - Past Surgical History Past Surgical History: Non-Contributing - Surgical History Hx Cholecystectomy: Yes - Anesthesia Hx Anesthesia: Yes Hx Anesthesia Reactions: No Hx Malignant Hyperthermia: No - Suicidal Assessment Feels Threatened In Home Enviroment: No Family/Social History - Physician Review Nursing Documentation Reviewed: Yes Family/Social History: Unknown Family HX Smoking Status: Former Smoker Hx Alcohol Use: No Hx Substance Use: No Substance used: RX MEDICATION Hx Substance Use Treatment: No Allergies/Home Meds Allergies/Adverse Reactions: Allergies aspirin Allergy (Verified 06/27/18 14:44) SHORTNESS OF BREATH benzethonium chloride Allergy (Verified 06/27/18 14:44) URTICARIA benzocaine Allergy (Verified 06/27/18 14:44) ITCHING broccoli Allergy (Verified 06/27/18 14:44) ITCHING caffeine Allergy (Verified 06/27/18 14:44) ITCHING codeine Allergy (Verified 06/27/18 14:44) ITCHING haloperidol Allergy (Verified 06/27/18 14:44) VOMITING ketorolac Allergy (Verified 06/27/18 14:44) ANAPHYLAXIS nitroglycerin Allergy (Verified 06/27/18 14:44) URTICARIA oxycodone Allergy (Verified 06/27/18 14:44) SHORTNESS OF BREATH pineapple Allergy (Verified 06/27/18 14:44) ITCHING trazodone Allergy (Verified 06/27/18 14:44) SWELLING ziprasidone [From Geodon] Allergy (Verified 06/27/18 14:44) SHORTNESS OF BREATH steroids Allergy (Uncoded 06/27/18 14:44) "heart flutters", swelling Home Medications: Home Meds Medication Instructions Recorded Confirmed Enoxaparin [Lovenox] 80 mg SC BID 12/18/16 06/27/18 LORazepam [Ativan] 2 mg PO BID 12/22/17 06/27/18 amLODIPine [Norvasc] 10 mg PO DAILY 12/22/17 06/27/18 Review of Systems - Review of Systems Constitutional: absent: Fevers Respiratory: absent: SOB, Cough Cardiovascular: Chest Pain Gastrointestinal: absent: Diarrhea, Nausea, Vomiting Musculoskeletal: absent: Back Pain, Neck Pain Neurological: absent: Headache, Dizziness Physical Exam Vital Signs Temp Pulse Resp BP Pulse Ox 06/30/18 00:20 82 18 155/82 H 98 06/29/18 23:31 98.0 F 87 17 154/102 H 99 Temperature: Afebrile Blood Pressure: Hypertensive Pulse: Regular Respiratory Rate: Normal Appearance: Positive for: Well-Appearing, Non-Toxic, Comfortable Pain Distress: None Mental Status: Positive for: Alert and Oriented X 3 - Systems Exam Head: Present: Atraumatic, Normocephalic Pupils: Present: PERRL Extroacular Muscles: Present: EOMI Conjunctiva: Present: Normal Mouth: Present: Moist Mucous Membranes Neck: Present: Normal Range of Motion Respiratory/Chest: Present: Clear to Auscultation, Good Air Exchange. No: Respiratory Distress, Accessory Muscle Use Cardiovascular: Present: Regular Rate and Rhythm, Normal S1, S2. No: Murmurs Abdomen: No: Tenderness, Distention, Peritoneal Signs Back: Present: Normal Inspection Upper Extremity: Present: Normal Inspection. No: Cyanosis, Edema Lower Extremity: Present: Normal Inspection. No: Edema Neurological: Present: GCS=15, Speech Normal Skin: Present: Warm, Dry, Normal Color. No: Rashes Psychiatric: Present: Alert, Oriented x 3, Normal Insight, Normal Concentration Medical Decision Making ED Course and Treatment: 06/30/18 03:13 Impression: 62 year old female presents to the Emergency department complaining of chest pain x 1 day. Differential Diagnosis included but are not limited to: Plan: -- Tylenol -- Reassess and disposition Prior Visits: Notes and results from previous visits were reviewed. Progress Notes: EKG reviewed, shows NSR at 89 06/30/18 03:14 Patient requested Ativan multiple times, i explained that workup needed to be completed to allow cardiology, Patient then left the Emergency department. - RAD Interpretation Radiology Orders: 06/29/18 23:49 CHEST PORTABLE [RAD] Stat - Scribe Statement The provider has reviewed the documentation as recorded by the Barber Patrick Provider Scribe Attestation: All medical record entries made by the Scribe were at my direction and personally dictated by me. I have reviewed the chart and agree that the record accurately reflects my personal performance of the history, physical exam, medical decision making, and the department course for this patient. I have also personally directed, reviewed, and agree with the discharge instructions and disposition. Disposition/Present on Arrival - Present on Arrival Any Indicators Present on Arrival: No History of DVT/PE: Yes History of Uncontrolled Diabetes: No Urinary Catheter: No History of Decub. Ulcer: No History Surgical Site Infection Following: None - Disposition Have Diagnosis and Disposition been Completed?: Yes Diagnosis: Atypical chest pain Disposition: ELOPEMENT - ER ONLY Disposition Time: 00:15 Condition: UNKNOWN Discharge Instructions (ExitCare): Chest Pain (ED) Referrals: Cedric Huang MD [Primary Care Provider] - Follow up with primary Forms: [employer] (Czech)
--- NOTE | 2018-06-30 09:41 | RAD ---
Date of service: 06/29/2018 HISTORY: chest pain COMPARISON: 02/24/2018 FINDINGS: LUNGS: No active pulmonary disease. PLEURA: No significant pleural effusion identified, no pneumothorax apparent. CARDIOVASCULAR: No aortic atherosclerotic calcification present. Normal cardiac size. No pulmonary vascular congestion. OSSEOUS STRUCTURES: No significant abnormalities. VISUALIZED UPPER ABDOMEN: Normal. OTHER FINDINGS: None. IMPRESSION: No active disease.
--- NOTE | 2018-06-30 21:08 | CARD ---
APPROVED REPORT Date of service: 06/29/2018 EKG Measurement Heart [id number] <Conclusion> Normal sinus rhythm Normal ECG
== END 2018-06-30 00:20 | disposition left against medical advice (07) ==
LOC: ED 23:04
DX: R07.89 Other chest pain (principal); I11.0 Hypertensive heart disease with heart failure; I50.9 Heart failure, unspecified; Z86.73 Personal history of transient ischemic attack (TIA), and cerebral infarction without residual deficits; Z87.891 Personal history of nicotine dependence

== ENCOUNTER 2018-08-24 19:17 | Emergency (ER) | payer MEDICAID, OTHER ==
[2018-08-24 19:17] VITALS: BMI 32.8
--- NOTE | 2018-08-24 19:27 | ED PDOC ---
Arrival/HPI - General Chief Complaint: Chest Pain Time Seen by Provider: 08/24/18 19:18 Historian: Patient - History of Present Illness Narrative History of Present Illness (Text): 08/24/18 19:25 Patient is a 62 yo AA female with history of seizure disorder, asthma, colon CA, GI ulcer, TIA, DVT, PE, peripheral edema, and anxiety/depression who presents for chest pain. Patient eloped prior to evaluation. Staff attempted to call her several times without success. Of note, patient has had several ED visits during which she asks for opiates and anxiolytics and then elopes/AMA's prior to dispo. Past Medical History - Infectious Disease Hx of Infectious Diseases: None - Tetanus Immunization Tetanus Immunization: Up to Date - Past Medical History Past Medical History: Non-Contributing - Cardiac Hx Cardiac Disorders: Yes Hx Congestive Heart Failure: Yes Hx Hypertension: Yes Hx Peripheral Edema: Yes - Pulmonary Hx Respiratory Disorders: Yes Hx Asthma: Yes Hx Bronchitis: Yes Hx Pulmonary Embolism: Yes - Neurological Hx Neurological Disorder: Yes Hx Migraine: Yes Hx Seizures: Yes Hx Transient Ischemic Attacks (TIA): Yes - HEENT Hx HEENT Disorder: No - Renal Hx Renal Disorder: No - Endocrine/Metabolic Hx Endocrine Disorders: No - Hematological/Oncological Hx Blood Disorders: Yes Hx Anemia: Yes Hx Cancer: Yes (Colon) - Integumentary Hx Dermatological Disorder: No - Musculoskeletal/Rheumatological Hx Musculoskeletal Disorders: Yes Hx Arthritis: Yes Hx Back Pain: Yes Hx Herniated Disk: Yes - Gastrointestinal Hx Gastrointestinal Disorders: Yes Hx Crohn's Disease: Yes Hx Gall Bladder Disease: Yes Hx Gastritis: Yes - Genitourinary/Gynecological Hx Genitourinary Disorders: No Hx Sexually Transmitted Diseases: No - Psychiatric Hx Psychophysiologic Disorder: Yes Hx Anxiety: Yes Hx Depression: Yes Hx Substance Use: Yes - Past Surgical History Past Surgical History: Non-Contributing - Surgical History Hx Cholecystectomy: Yes - Anesthesia Hx Anesthesia: Yes Hx Anesthesia Reactions: No Hx Malignant Hyperthermia: No - Suicidal Assessment Feels Threatened In Home Enviroment: No Family/Social History Family/Social History: Unknown Family HX Smoking Status: Never Smoked Hx Alcohol Use: No Hx Substance Use: Yes Substance used: RX MEDICATION Hx Substance Use Treatment: No Allergies/Home Meds Allergies/Adverse Reactions: Allergies aspirin Allergy (Verified 06/27/18 14:44) SHORTNESS OF BREATH benzethonium chloride Allergy (Verified 06/27/18 14:44) URTICARIA benzocaine Allergy (Verified 06/27/18 14:44) ITCHING broccoli Allergy (Verified 06/27/18 14:44) ITCHING caffeine Allergy (Verified 06/27/18 14:44) ITCHING codeine Allergy (Verified 06/27/18 14:44) ITCHING haloperidol Allergy (Verified 06/27/18 14:44) VOMITING ketorolac Allergy (Verified 06/27/18 14:44) ANAPHYLAXIS nitroglycerin Allergy (Verified 06/27/18 14:44) URTICARIA oxycodone Allergy (Verified 06/27/18 14:44) SHORTNESS OF BREATH pineapple Allergy (Verified 06/27/18 14:44) ITCHING trazodone Allergy (Verified 06/27/18 14:44) SWELLING ziprasidone [From Geodon] Allergy (Verified 06/27/18 14:44) SHORTNESS OF BREATH lidocaine Allergy (Uncoded 07/01/18 09:18) ITCHING omnipaque Allergy (Uncoded 07/01/18 09:19) ANAPHYLAXIS steroids Allergy (Uncoded 06/27/18 14:44) "heart flutters", swelling Home Medications: Home Meds Medication Instructions Recorded Confirmed Enoxaparin [Lovenox] 80 mg SC BID 12/18/16 06/30/18 LORazepam [Ativan] 2 mg PO BID 12/22/17 06/30/18 amLODIPine [Norvasc] 10 mg PO DAILY 12/22/17 06/30/18 Acetaminophen with Codeine 1 tab PO Q6 PRN 06/30/18 06/30/18 [Tylenol with Codeine #4 Tablet] Losartan/Hydrochlorothiazide 1 tab PO DAILY 06/30/18 06/30/18 [Losartan-Hctz 100-12.5 mg Tab] Phenytoin, Extended [Dilantin 100 mg PO QID 06/30/18 06/30/18 Kapseals] Disposition/Present on Arrival - Present on Arrival Any Indicators Present on Arrival: Yes History of DVT/PE: Yes History of Uncontrolled Diabetes: No Urinary Catheter: No History Surgical Site Infection Following: None - Disposition Have Diagnosis and Disposition been Completed?: Yes Diagnosis: Chest pain Disposition: ELOPEMENT - ER ONLY Disposition Time: 19:58 Patient Plan: Other (elopement) Condition: STABLE Discharge Instructions (ExitCare): Chest Pain (ED) Forms: [employer] (Persian)
== END 2018-08-24 20:00 | disposition left against medical advice (07) ==
LOC: ED 19:17
DX: R07.9 Chest pain, unspecified (principal); I11.0 Hypertensive heart disease with heart failure; I50.9 Heart failure, unspecified; Z86.73 Personal history of transient ischemic attack (TIA), and cerebral infarction without residual deficits

== ENCOUNTER 2018-09-03 16:53 | Emergency (ER) | payer OTHER ==
[2018-09-03 16:54] VITALS: BMI 32.8
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
--- NOTE | 2018-09-04 18:24 | CARD ---
APPROVED REPORT Date of service: 09/03/2018 EKG Measurement Heart [id number] <Conclusion> Normal sinus rhythm T wave abnormality, consider inferior ischemia Abnormal ECG
== END 2018-09-03 17:32 | disposition home or self-care (01) ==
LOC: ED 16:53
DX: F41.9 Anxiety disorder, unspecified (principal); I50.9 Heart failure, unspecified; I10 Essential (primary) hypertension; Z59.0 Homelessness; Z86.73 Personal history of transient ischemic attack (TIA), and cerebral infarction without residual deficits; Z86.711 Personal history of pulmonary embolism